=== PATIENT | male | born 1955 | race Caucasian/White ===

== ENCOUNTER → 2017-05-17 | Outpatient (CLI) | payer MEDICAID, OTHER ==
[~2017-05-17] MED LIST: ACYC800T PO; ATEN-102 PO; BENZ0.5T PO; BENZ1TAB PO; CALC1TAB34 PO; CALC500T21 PO; CELE10TA PO; COMPTAB16 PO; DEPA500T3 PO; EMTR1TAB2 PO; HALO1TAB PO; HALO5 PO; KETO2CRE TOPICAL; LISI2.5T3 PO; LISI2.5T55 PO; LITH150C7 PO; RISP2TAB37 PO; SERO300T PO; TEST200I12 IM; TOPR50TA PO; ZOVI800T13 PO
--- NOTE | 2017-05-17 10:41 | RADRPT ---
EXAM DATE/TIME: 05/17/2017 09:42 [place] COMPARISON: No previous studies available for comparison. INDICATIONS : Memory loss. MEDICAL HISTORY : Hypertension. Hepatitis C. HIV. SURGICAL HISTORY : Bone spur removed from ankle. ENCOUNTER: Initial ACUITY: 1 day PAIN SCORE: 0/10 LOCATION: Bilateral neck PEAK SYSTOLIC VELOCITIES (cm/sec): ICA/CCA RATIO: Right: 1.2 Left: 1.4 ICA: Right: 73 Left: 84 CCA: Right: 62 Left: 59 ECA: Right: 45 Left: 45 VERTEBRAL: Right: 54 antegrade Left: 47 antegrade Elevated flow velocities and ICA/CCA ratios have been found to correlate with increased degrees of vessel stenosis, calculated as percentage of diameter relative to a normal segment of distal ICA/CCA FINDINGS: RIGHT CAROTID: There is minimal atherosclerotic plaquing at the bifurcation. No significant stenosis is visualized. The waveforms are within normal limits. LEFT CAROTID: There is minimal atherosclerotic plaquing at the bifurcation. No significant stenosis is visualized. The waveforms are within normal limits. VERTEBRAL ARTERIES: Antegrade flow is seen in both vertebral arteries. MISCELLANEOUS: None. CONCLUSION: Minimal atherosclerotic plaquing is seen bilaterally. Otherwise, unremarkable exam for patient's age. Isidro Otero MD on May 17, 2017 at 10:39 Board Certified Radiologist. This report was verified electronically.
--- NOTE | 2017-05-17 21:24 | MG ---
cc: KASANDRA CALLES MD Lab No: Date: 05/17/17 Age: 61 Sex: M Race: DATE OF [address] Poon. MEDICAL HISTORY HIV, hypertension, hep C. MEDICATIONS 1. Celexa. 2. Risperdal. 3. Seroquel. 4. Depakote. 5. Haloperidol. 6. Toprol XL. 7. Ketoconazole. 8. Testosterone. 9. Lisinopril. 10. Acyclovir. 11. Benztropine. DESCRIPTION The background activity is 9-10 Hz alpha located posteriorly, bilateral and symmetrical. Normal posterior to anterior gradient. During the recording there was drop out of the background with mild slowing. The patient appears drowsy. There is excessive movement artifact. Hyperventilation did not change the background activity. Photic stimulation did not elicit a driving response. There are no electrographic seizures or epileptiform discharges noted during the recording. INTERPRETATION: This is a normal awake and drowsy EEG. Absence of electrographic seizures or epileptiform discharges does not rule-out the diagnosis of epilepsy. Clinical correlation is recommended. Kasandra Calles MD RGO/EO /7:57 PM /9:20 PM MTDD
== END ==
LOC: HEEG 06:31
PROVIDERS: ATTEND Specialist
DX: R93.0 Abnormal findings on diagnostic imaging of skull and head, not elsewhere classified (principal); F20.1 Disorganized schizophrenia; F31.64 Bipolar disorder, current episode mixed, severe, with psychotic features; R41.82 Altered mental status, unspecified
CPT/HCPCS: 93880; 95819

== ENCOUNTER 2017-06-11 16:15 | Inpatient (IN) | payer OTHER, MEDICAID ==
[~2017-06-11] VITALS: Ht 167.6 cm; Wt 64.6 kg
[2017-06-11] VITALS (7 sets, daily range): BP systolic 196–215; BP diastolic 118–130; PULSE 88–102; RESP 16–20; TEMP 98.3–98.5; O2SAT 97–98
[~2017-06-11 16:15] MED LIST changes: -ACYC800T PO; -BENZ0.5T PO; -CALC1TAB34 PO; -CELE10TA PO; -DEPA500T3 PO; -EMTR1TAB2 PO; -HALO1TAB PO; -KETO2CRE TOPICAL; -LISI2.5T3 PO; -RISP2TAB37 PO; -SERO300T PO; -TEST200I12 IM; -TOPR50TA PO
[2017-06-11 16:44] LABS: AUTOMATED NEUTROPHIL # 7.3 TH/MM3 (1.8-7.7); BASOPHIL # 0.1 TH/MM3 (0-0.2); BASOPHIL % 0.9 % (0.0-2.0); EOSINOPHIL # 0.4 TH/MM3 (0-0.4); EOSINOPHIL % 3.8 % (0.0-4.0); HEMATOCRIT 43.4 % (39.0-51.0); HEMOGLOBIN 14.7 GM/DL (13.0-17.0); LYMPH % 14.6 % (9.0-44.0); LYMPHOCYTE # 1.5 TH/MM3 (1.0-4.8); MEAN CELL VOLUME 92.4 FL (80.0-100.0); MEAN CORPUSCULAR HEMOGLOBIN 31.3 PG (27.0-34.0); MEAN CORPUSCULAR HGB CONC 33.9 % (32.0-36.0); MEAN PLATELET VOLUME 7.9 FL (7.0-11.0); MONO % 7.8 % (0.0-8.0); MONOCYTE # 0.8 TH/MM3 (0-0.9); NEUT % 72.9 % (16.0-70.0); PLATELET COUNT 273 TH/MM3 (150-450); RED CELL DISTRIBUTION WIDTH 12.8 % (11.6-17.2); WHITE BLOOD COUNT 10.1 TH/MM3 (4.0-11.0)
[2017-06-11 17:20] LABS: ALBUMIN 3.9 GM/DL (3.4-5.0); AST (GOT) 52 U/L (15-37); BICARBONATE 30.4 MEQ/L (21.0-32.0); BLOOD UREA NITROGEN 18 MG/DL (7-18); CALCIUM 9.2 MG/DL (8.5-10.1); CHLORIDE 104 MEQ/L (98-107); CREATININE 1.15 MG/DL (0.60-1.30); GLOMERULAR FILTRATION RATE 65 ML/MIN (>89); GLUCOSE,RANDOM 105 MG/DL (74-106); SODIUM (NA) 139 MEQ/L (136-145)
[2017-06-11 17:21] LABS: ALT (GPT) 40 U/L (12-78)
[2017-06-11 17:23] LABS: ALKALINE PHOSPHATASE 104 U/L (45-117); TOTAL BILIRUBIN ADULT 0.5 MG/DL (0.2-1.0); TOTAL PROTEIN 7.6 GM/DL (6.4-8.2)
--- NOTE | 2017-06-11 17:49 | PD ---
HPI Chief Complaint: Psychiatric Symptoms Time Seen by Provider: 17:35 Travel History International Travel<30 days: No Contact w/Intl Traveler<30days: No Traveled to known affect area: No History of Present Illness HPI Patient is 61-year-old male presented to the emergency Department under [place] act for psychiatric evaluation. Per the [place] act report patient has absent temporal lobe syndrome, bipolar disorder, schizophrenia. He has been having weight loss and poor hygiene, he's been sleeping in the park and restrooms. He has been combative to his caregiver. Patient denies any suicidal or homicidal ideations, he denies any depression, pain. 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 He states that he is missing part of his brain, he states Dr. Poon told him this fancy terms. He denies any hallucinations. PFSH Past Medical History Bipolar Disorder: Yes Medical other: Yes (HIV) Schizophrenia: Yes Social History Tobacco Use: No Allergies-Medications (Allergen,Severity, Reaction): Coded Allergies: Sulfa (Sulfonamide Antibiotics) (Unverified Allergy, Severe, Hives, ) Reported Meds & Prescriptions Reported Meds & Active Scripts Active Reported Toprol XL (Metoprolol Succinate) 50 Mg Tab 50 Mg PO DAILY Odefsey (Zzaxefqohnvxy-Fvxosciuzjy-Mycqutzvz Alafenam) 200-200-25 Mg Tab 1 Tab PO DAILY Benztropine (Benztropine Mesylate) 0.5 Mg Tab 1 Mg PO BID Acyclovir 800 Mg Tab 800 Mg PO DAILY Lisinopril 2.5 Mg Tab 2.5 Mg PO DAILY Testosterone Cypionate Inj (Testosterone Cypionate) 200 Mg/Ml Inj 200 Mg IM Ketoconazole Topical 2% Cream 1 Applic TOPICAL BID Depakote ER (Divalproex Sodium) 500 Mg Drea 500 Mg PO HS Haloperidol 1 Mg Tab 1 Mg PO DAILY Seroquel (Quetiapine Fumarate) 300 Mg Tab 600 Mg PO HS Celexa (Citalopram Hydrobromide) 10 Mg Tab 5 Mg PO DAILY Risperdal (Risperidone) 2 Mg Tab 2 Mg PO Q12HR Caltrate 600+D Plus Minerals (Calcium Carbonate-Vitamin D W/Minerals) 600-800 Mg -Unit Tab 1 Tab PO BID Review of Systems Except as stated in HPI: all other systems reviewed are Neg Psychiatric: Positive: Disorder of Thought, Mood Disorder, No: Depression, Suicidal Ideations, Substance Abuse Physical Exam Narrative GENERAL: Well-developed, well-nourished, alert male. Resting comfortably in no acute distress. SKIN: Warm and dry. HEAD: Atraumatic. Normocephalic. EYES: Pupils equal and round. No scleral icterus. No injection or drainage. ENT: No nasal bleeding or discharge. Mucous membranes pink and moist. NECK: Trachea midline. No JVD. CARDIOVASCULAR: Regular rate and rhythm. RESPIRATORY: No accessory muscle use. Clear to auscultation. Breath sounds equal bilaterally. GASTROINTESTINAL: Abdomen soft, non-tender, nondistended. Hepatic and splenic margins not palpable. MUSCULOSKELETAL: Extremities without clubbing, cyanosis, or edema. No obvious deformities. NEUROLOGICAL: Awake and alert. No obvious cranial nerve deficits. Motor grossly within normal limits. Five out of 5 muscle strength in the arms and legs. Normal speech. PSYCHIATRIC: Appropriate mood and affect; insight and judgment normal. Data Data Last Documented VS Vital Signs Date Time Temp Pulse Resp B/P (MAP) Pulse Ox O2 Delivery O2 Flow Rate FiO2 06/12/17 10:00 74 18 173/103 (126) Room Air 06/12/17 09:18 98 06/11/17 21:55 98.4 Orders Orders Complete Blood Count With Diff (06/11/17 16:23) Comprehensive Metabolic Panel (06/11/17 16:23) Psych Screen (06/11/17 16:23) Drug Screen, Random Urine (06/11/17 16:23) Atenolol (Tenormin) (06/11/17 18:15) Lisinopril (Prinivil) (06/11/17 18:15) Clonidine (Catapres) (06/11/17 19:00) Valproic Acid (Depakene) (06/11/17 20:40) Amlodipine (Norvasc) (06/11/17 20:45) Clonidine (Catapres) (06/11/17 22:15) Atenolol (Tenormin) (06/12/17 08:00) Lisinopril (Prinivil) (06/12/17 08:00) Diet Regular Basic (06/12/17 Breakfast) Diet Regular Basic (06/12/17 Lunch) Lisinopril (Prinivil) (06/12/17 11:00) Labs Laboratory Tests Test 06/11/17 16:32 06/11/17 17:00 White Blood Count 10.1 TH/MM3 Red Blood Count 4.70 MIL/MM3 Hemoglobin 14.7 GM/DL Hematocrit 43.4 % Mean Corpuscular Volume 92.4 FL Mean Corpuscular Hemoglobin 31.3 PG Mean Corpuscular Hemoglobin Concent 33.9 % Red Cell Distribution Width 12.8 % Platelet Count 273 TH/MM3 Mean Platelet Volume 7.9 FL Neutrophils (%) (Auto) 72.9 % Lymphocytes (%) (Auto) 14.6 % Monocytes (%) (Auto) 7.8 % Eosinophils (%) (Auto) 3.8 % Basophils (%) (Auto) 0.9 % Neutrophils # (Auto) 7.3 TH/MM3 Lymphocytes # (Auto) 1.5 TH/MM3 Monocytes # (Auto) 0.8 TH/MM3 Eosinophils # (Auto) 0.4 TH/MM3 Basophils # (Auto) 0.1 TH/MM3 CBC Comment DIFF FINAL Differential Comment Blood Urea Nitrogen 18 MG/DL Creatinine 1.15 MG/DL Random Glucose 105 MG/DL Total Protein 7.6 GM/DL Albumin 3.9 GM/DL Calcium Level 9.2 MG/DL Alkaline Phosphatase 104 U/L Aspartate Amino Transf (AST/SGOT) 52 U/L Alanine Aminotransferase (ALT/SGPT) 40 U/L Total Bilirubin 0.5 MG/DL Sodium Level 139 MEQ/L Potassium Level 3.7 MEQ/L Chloride Level 104 MEQ/L Carbon Dioxide Level 30.4 MEQ/L Anion Gap 5 MEQ/L Estimat Glomerular Filtration Rate 65 ML/MIN Valproic Acid (Depakene) Level 5 MCG/ML Urine Opiates Screen NEG Urine Barbiturates Screen NEG Urine Amphetamines Screen NEG Urine Benzodiazepines Screen NEG Urine Cocaine Screen NEG Urine Cannabinoids Screen POS MDM Medical Decision Making Medical Screen Exam Complete: Yes Emergency Medical Condition: Yes Medical Record Reviewed: Yes Interpretation(s) Laboratory Tests Test 06/11/17 16:32 06/11/17 17:00 White Blood Count 10.1 TH/MM3 Red Blood Count 4.70 MIL/MM3 Hemoglobin 14.7 GM/DL Hematocrit 43.4 % Mean Corpuscular Volume 92.4 FL Mean Corpuscular Hemoglobin 31.3 PG Mean Corpuscular Hemoglobin Concent 33.9 % Red Cell Distribution Width 12.8 % Platelet Count 273 TH/MM3 Mean Platelet Volume 7.9 FL Neutrophils (%) (Auto) 72.9 % Lymphocytes (%) (Auto) 14.6 % Monocytes (%) (Auto) 7.8 % Eosinophils (%) (Auto) 3.8 % Basophils (%) (Auto) 0.9 % Neutrophils # (Auto) 7.3 TH/MM3 Lymphocytes # (Auto) 1.5 TH/MM3 Monocytes # (Auto) 0.8 TH/MM3 Eosinophils # (Auto) 0.4 TH/MM3 Basophils # (Auto) 0.1 TH/MM3 CBC Comment DIFF FINAL Differential Comment Blood Urea Nitrogen 18 MG/DL Creatinine 1.15 MG/DL Random Glucose 105 MG/DL Total Protein 7.6 GM/DL Albumin 3.9 GM/DL Calcium Level 9.2 MG/DL Alkaline Phosphatase 104 U/L Aspartate Amino Transf (AST/SGOT) 52 U/L Alanine Aminotransferase (ALT/SGPT) 40 U/L Total Bilirubin 0.5 MG/DL Sodium Level 139 MEQ/L Potassium Level 3.7 MEQ/L Chloride Level 104 MEQ/L Carbon Dioxide Level 30.4 MEQ/L Anion Gap 5 MEQ/L Estimat Glomerular Filtration Rate 65 ML/MIN Vital Signs Date Time Temp Pulse Resp B/P (MAP) Pulse Ox O2 Delivery O2 Flow Rate FiO2 06/11/17 16:27 98.5 98 16 199/125 (149 98 Differential Diagnosis Mood disorder versus substance abuse versus noncompliance versus schizophrenia versus other Narrative Course Patient is a 61-year-old male under [place] act due to poor self-care, combative behavior. Mental health screening discussed with the patient. Psychiatric screen ordered. He denies any psychiatric history other than missing part of his brain. Patient's blood pressure is elevated, he has a history of hypertension and has been noncompliant with his medications. Atenolol and lisinopril ordered per home dose schedule. Patient's blood pressure remained elevated after normal home medications were administered. Clonidine 0.1 mg was administered orally, blood pressure trended down however only slightly. Amlodipine 10 mg by mouth 1 ordered. Patient is resting comfortably, he has no complaints of pain. Will reassess. After administration of amlodipine patient's blood pressure trended down slightly but continued again to be significantly elevated, an additional dose of clonidine was ordered. Patient has a history of hypertension, he is off of his medications for an unknown period of time. It may take time for patient's blood pressure to normalize. Discussed with my attending physician. Patient is medically cleared at this time. Will order home dose of atenolol lisinopril for the morning. Diagnosis Primary Impression: Medical clearance for psychiatric admission Additional Impression: Hypertension Qualified Codes: I10 - Essential (primary) hypertension Condition: Stable Delilah Hidalgo [facility] Jun 11, 2017 17:49
[2017-06-11] MEDS ORDERED: LISINOPRIL 5 MG TAB PO ONE (18:15)
[2017-06-11] MEDS ORDERED: ATENOLOL 50 MG TAB PO ONE (18:15)
[2017-06-11] MEDS ORDERED: cloNIDine HCL 0.1 MG TAB PO ONE ×2 (19:00→22:15)
[2017-06-11] MEDS ORDERED: KETO2CRE TOPICAL (19:58)
[2017-06-11] MEDS ORDERED: TEST200I12 IM (19:58)
[2017-06-11] MEDS ORDERED: CELE10TA PO (19:58)
[2017-06-11] MEDS ORDERED: HALO1TAB PO (19:58)
[2017-06-11] MEDS ORDERED: RISP2TAB37 PO (19:58)
[2017-06-11] MEDS ORDERED: SERO300T PO (19:58)
[2017-06-11] MEDS ORDERED: DEPA500T3 PO (19:58)
[2017-06-11] MEDS ORDERED: CALC1TAB34 PO (19:58)
[2017-06-11] MEDS ORDERED: TOPR50TA PO (20:03)
[2017-06-11] MEDS ORDERED: LISI2.5T3 PO (20:03)
[2017-06-11] MEDS ORDERED: ACYC800T PO (20:03)
[2017-06-11] MEDS ORDERED: BENZ0.5T PO (20:03)
[2017-06-11] MEDS ORDERED: EMTR1TAB2 PO (20:03)
[2017-06-12 06:17] VITALS: BP 178/108; PULSE 88; RESP 18
[2017-06-12] MEDS ORDERED: ATENOLOL 50 MG TAB PO ONE (08:00)
[2017-06-12] MEDS ORDERED: LISINOPRIL 5 MG TAB PO ONE ×2 (08:00→11:00)
[2017-06-12 09:18] VITALS: BP 175/103; PULSE 79; RESP 18; O2SAT 98
[2017-06-12 10:00] VITALS: BP 173/103; PULSE 74; RESP 18
[2017-06-12] MEDS ORDERED: MAGNESIUM HYDROXIDE SUSP 30 ML CUP PO PRN (15:45)
[2017-06-12] MEDS ORDERED: LORazepam 2 MG/ML VIAL IM PRN (15:45)
[2017-06-12] MEDS ORDERED: ALUMINUM/MAGNESIUM/SIMETH 30 ML CUP PO PRN (15:45)
[2017-06-12] MEDS ORDERED: cloNIDine HCL 0.1 MG TAB PO ONE (15:45)
[2017-06-12 15:46] VITALS: BP 168/103; PULSE 75; RESP 18; TEMP 99.1; O2SAT 97
[2017-06-12] MEDS: METOPROLOL SUCCINATE 50 MG EXTENDED RELEASE TAB PO SCH (16:00)
[2017-06-12] MEDS ORDERED: EMTRICITABINE RILPIVIRINE TENOFOVIR ALAFENAM PO SCH (16:00)
[2017-06-12] MEDS: ACYCLOVIR 800 MG TAB PO SCH (16:00)
[2017-06-12] MEDS ORDERED: NON-FORMULARY DRUG (Lisinopril 2.5 MG) PO SCH (16:00)
--- NOTE | 2017-06-12 16:05 | HHI.HP ---
Provisional Diagnosis Admission Date Jun 12, 2017 at 15:46 [place] I. Brief psychotic disorder Certification of Person's Competence To Provide Express and Informed Consent I have personally examined Nixon Arriaza , a person being served at [facility] on, Jun 12, 2017 15:51. Express and informed consent means consent voluntarily given in writing, by a competent person, after sufficient explanation and disclosure of the subject matter involved to enable the person to make a knowing and willful decision without any element of force, fraud, deceit, duress, or other form of constraint or coercion. This person is 18 years of age or older, is not now known to be incompetent to consent to treatment with a guardian advocate, and does not have a health care surrogate or proxy currently making medical treatment decisions. I have found this person to be one of the following: [] Competent to provide express and informed consent, as defined above, for voluntary admission to this facility and is competent to provide express and informed consent for treatment. He/she has the consistent capacity to make well reasoned, willful, and knowing decisions concerning his or her medical or mental health treatment. The person fully and consistently understands the purpose of the admission for examination/placement and is fully capable of personally exercising all rights assured [place] [X] Incompetent to provide express and informed consent to voluntary admission, and this is incompetent to provide express and informed consent to treatment. The person must be transferred to involuntary status and a petition for a guardian advocate filed with the Circuit Court. [] Refusing to provide express and informed consent to voluntary admission but is competent to provide express and informed consent for treatment. The person must be discharged or transferred to involuntary status. Form shall be completed within 24 hours of a person's arrival at the receiving facility and filed in the clinical record of each person: 1. Admitted on a voluntary basis 2. Permitted to provide express and informed consent to his/her own treatment 3. Allowed to transfer from involuntary to voluntary status 4. Prior to permitting a person to consent to his or her own treatment after having been previously found incompetent to consent to treatment. History of Present Illness Capacity: Lacks Capacity HPI 61-year-old male Raffaele acted by his primary care physician yesterday with reports of combative/violent behavior at home with his caregiver. Caregiver is his brother, Sajan. Sajan is unable to care for the patient and the patient has reportedly been staying in bathrooms and homeless, not eating and losing weight. Patient is apparently HIV positive and has "absent temporal lobe syndrome". He is grossly psychotic and unable to provide a cogent history. There are his story diagnoses of bipolar disorder and schizophrenia as well. According to the patient's CT scan, his temporal lobe is gone and this makes his personality and behavior difficult to control. The patient tells his caregiver and this physician that his primary care physician, Dr. Poon is attempting to get him sicker or keep him sick to make money off him. The patient has not been eating lunch or dinner and does not stay in the home. It has been 8 days since the patient left the home and the patient claims his brother kicked him out. The patient has not been taking his medications for HIV. Upon interview, the patient immediately makes nonsensical and psychotic remarks such as "I was born in [facility] and a pink missed". He feels this physician's sole is made of chocolate. He is unable to provide cogent information. Review of Systems Except as stated in HPI: all other systems reviewed are Neg Past Psych History Psychological trauma history Denied Violence risk - others (6 mos) Moderate to high. Violence risk - self (6 mos) Moderate to high. Patient certainly not caring for self. Substance Abuse History Drugs/Alcohol past 12 months Denied. Toxicology screen is positive for cannabinoids. Past Family Social History Coded Allergies: Sulfa (Sulfonamide Antibiotics) (Unverified Allergy, Severe, Hives, ) Reported Medications Metoprolol Succinate ER 24 HR (Toprol XL) 50 Mg Tab, 50 MG PO DAILY, #30 TAB 0 Refills 06/11/17 Xvkdtmwqvpscg-Lpdwrmxuqzv-Mooejfklo Alafenam (Odefsey) 200-200-25 Mg Tab, 1 TAB PO DAILY for Mgmt Viral Infection, #30 TAB 0 Refills 06/11/17 Benztropine (Benztropine) 0.5 Mg Tab, 1 MG PO BID, #60 TAB 0 Refills 06/11/17 Acyclovir (Acyclovir) 800 Mg Tab, 800 MG PO DAILY for Mgmt Viral Infection, TAB 0 Refills 06/11/17 Lisinopril (Lisinopril) 2.5 Mg Tab, 2.5 MG PO DAILY, #30 TAB 0 Refills 06/11/17 Testosterone Cypionate Inj (Testosterone Cypionate Inj) 200 Mg/Ml Inj, 200 MG IM for Hormone Replacement, #1 VIAL 0 Refills 06/11/17 Ketoconazole Topical (Ketoconazole Topical) 2% Cream, 1 APPLIC TOPICAL BID for Fungal Infection, #15 GM 0 Refills 06/11/17 Divalproex ER (Depakote ER) 500 Mg Drea, 500 MG PO HS for Control Seizures, # 30 TAB 0 Refills 06/11/17 Haloperidol (Haloperidol) 1 Mg Tab, 1 MG PO DAILY, TAB 0 Refills 06/11/17 Quetiapine (Seroquel) 300 Mg Tab, 600 MG PO HS, #30 TAB 0 Refills 06/11/17 Citalopram (Celexa) 10 Mg Tab, 5 MG PO DAILY for Control Depression, #30 TAB 0 Refills 06/11/17 Risperidone (Risperdal) 2 Mg Tab, 2 MG PO Q12HR, #60 TAB 0 Refills 06/11/17 Calcium Carbonate-Vitamin D W/Minerals (Caltrate 600+D Plus Minerals) 600-800 Mg -Unit Tab, 1 TAB PO BID for Nutritional Supplement, TAB 0 Refills 06/11/17 Discontinued Reported Medications Lisinopril 2.5 mg (Lisinopril 2.5 mg) 2.5 Mg Tab, 1 TAB PO DAILY, TAB 01/06/16 Akztaixcfockt-Mrwvdkokwiu-Igll (Complera) Tab, 1 TAB PO DAILY, TAB 01/06/16 Calcium Carbonate-Vitamin D (Calcium 500+D) 500 + Tab, 600 + PO BID, TAB 01/06/16 Benztropine Mesylate (Benztropine Mesylate) 1 Mg Tab, 1 MG PO Q12H, TAB 01/06/16 Atenolol (Atenolol) 50 Mg Tab, 50 MG PO DAILY, TAB 01/06/16 Acyclovir (Zovirax) 800 Mg Tab, 800 MG PO DAILY, 0 Refills 10/19/08 Creola Carbonate (Creola Carbonate) 150 Mg Cap, 300 MG PO TID, 0 Refills 10/19/08 Haloperidol (Haldol) 5 Mg Tab, 5 MG PO DAILY, 0 Refills 10/19/08 Current Medications Medications (Trade) Dose Ordered Sig/Zina Route Start Time Stop Time Status Last Admin (Ativan) 1 mg Q6H PRN PO 06/12/17 15:45 UNV (Ativan Inj) 1 mg Q6H PRN IM 06/12/17 15:45 UNV (Tylenol) 650 mg Q4H PRN PO 06/12/17 15:45 UNV (Milk Of Magnesia Liq) 30 ml DAILY PRN PO 06/12/17 15:45 UNV (Mag-Al Plus Susp Liq) 30 ml Q6H PRN PO 06/12/17 15:45 UNV Family Psych History Unknown. Patient poor historian. Social History Living with his brother until approximately 8 days ago. Now staying in bathrooms and other inappropriate places. Grossly psychotic and unreliable historian regarding his compliance with medicines. Unable to work due to mental disability. Patient's Strengths (min. 2) Supportive brother and has access to healthcare. Physical Exam GENERAL: SKIN: Warm and dry. HEAD: Normocephalic. EYES: No scleral icterus. No injection or drainage. NECK: Supple, trachea midline. No JVD or lymphadenopathy. CARDIOVASCULAR: Regular rate and rhythm without murmurs, gallops, or rubs. RESPIRATORY: Breath sounds equal bilaterally. No accessory muscle use. GASTROINTESTINAL: Abdomen soft, non-tender, nondistended. MUSCULOSKELETAL: No cyanosis, or edema. BACK: Nontender without obvious deformity. No CVA tenderness. Vital Signs Vital Signs Date Time Temp Pulse Resp B/P (MAP) Pulse Ox O2 Delivery O2 Flow Rate FiO2 06/12/17 15:46 99.1 75 18 168/103 (124) 97 Room Air Lab Results Test 06/11/17 16:32 06/11/17 17:00 White Blood Count 10.1 TH/MM3 Red Blood Count 4.70 MIL/MM3 Hemoglobin 14.7 GM/DL Hematocrit 43.4 % Mean Corpuscular Volume 92.4 FL Mean Corpuscular Hemoglobin 31.3 PG Mean Corpuscular Hemoglobin Concent 33.9 % Red Cell Distribution Width 12.8 % Platelet Count 273 TH/MM3 Mean Platelet Volume 7.9 FL Neutrophils (%) (Auto) 72.9 % Lymphocytes (%) (Auto) 14.6 % Monocytes (%) (Auto) 7.8 % Eosinophils (%) (Auto) 3.8 % Basophils (%) (Auto) 0.9 % Neutrophils # (Auto) 7.3 TH/MM3 Lymphocytes # (Auto) 1.5 TH/MM3 Monocytes # (Auto) 0.8 TH/MM3 Eosinophils # (Auto) 0.4 TH/MM3 Basophils # (Auto) 0.1 TH/MM3 CBC Comment DIFF FINAL Differential Comment Blood Urea Nitrogen 18 MG/DL Creatinine 1.15 MG/DL Random Glucose 105 MG/DL Total Protein 7.6 GM/DL Albumin 3.9 GM/DL Calcium Level 9.2 MG/DL Alkaline Phosphatase 104 U/L Aspartate Amino Transf (AST/SGOT) 52 U/L Alanine Aminotransferase (ALT/SGPT) 40 U/L Total Bilirubin 0.5 MG/DL Sodium Level 139 MEQ/L Potassium Level 3.7 MEQ/L Chloride Level 104 MEQ/L Carbon Dioxide Level 30.4 MEQ/L Anion Gap 5 MEQ/L Estimat Glomerular Filtration Rate 65 ML/MIN Valproic Acid (Depakene) Level 5 MCG/ML Urine Opiates Screen NEG Urine Barbiturates Screen NEG Urine Amphetamines Screen NEG Urine Benzodiazepines Screen NEG Urine Cocaine Screen NEG Urine Cannabinoids Screen POS Mental Status Examination Appearance: Disheveled Consciousness: Alert Orientation: Person, Place Motor Activity: Normal gait Speech: Rapid Language: Neologism, Perseveration Fund of Knowledge: Adequate, Inadequate Attention and Concentration: Inadequate Memory: Impaired Mood: Other Affect: Labile Thought Process & Associations: Loose associations, Tangential Thought Content: Bizarre thinking, Delusional Hallucination Type: None Delusion Type: Bizarre Suicidal Ideation: No Suicidal Plan: No Suicidal Intention: No Homicidal Ideation: No Homicidal Plan: No Homicidal Intention: No Insight: Poor Judgment: Poor Assessment & Plan Problem List: (1) Brief psychotic disorder ICD Codes: F23 - Brief psychotic disorder Assessment & Plan Estimated LOS: days. 61-year-old male obviously grossly psychotic, obviously unable to care for himself, HIV positive, threatening towards his brother, not taking medications as prescribed, paranoid regarding his doctor, with multiple delusional comments and inappropriate thought process. Patient therefore being admitted for further evaluation and treatment. This physician has ordered a CBC and comprehensive metabolic panel to determine if any infectious process or metabolic process is possibly causing her contributing to the patient's psychosis. Additionally, this physician has ordered a hospitalist consult to assist with the patient's HIV medications, neurological condition (absent temporal lobe syndrome), high blood pressure, etc. as these conditions can also cause or contribute to the patient's confusion and psychosis. Also ordered or thyroid stimulating hormone, vitamin B -12 level and vitamin D level to determine if any deficiency in these areas is causing or contributing to the patient's psychosis. An EKG is being ordered as well to examine the patient's cardiac conduction system prior to instituting a myriad of psychotropic medicines which have been previously ordered and may cause a cardiac conduction problem. This physician spoke to the patient's nurse , Bon regarding his recent behavior. Case management will also be involved to assist with information gathering and disposition planning. Lázaro Gates MD Jun 12, 2017 16:05
[2017-06-12] MEDS ORDERED: PILL SPLITTER OTHER PRN (16:30)
--- NOTE | 2017-06-12 18:26 | PD.CONS ---
[facility] Request[facility] By Dr. Gates, psychiatry team Reason for Consult Assist with medical management, HTN uncontrolled, HIV, Primary Care Physician Unknown Diagnoses: History of Present Illness Patient is a 61-year-old male with primary medical history of HTN, HIV, bipolar , schizoaffective disorder who came into the hospital under [place] for psychiatric evaluation. Per review of records [place] report patient has absent temporal lobe syndrome, bipolar disorder, schizophrenia who has been having weight loss and poor hygiene sleeping in the park and restrooms. Patient has been combative to his caregiver. He is now admitted to inpatient psychiatry unit for further evaluation. Consulted for medical management. Patient seen and examined today. As per nursing, patient has been having uncontrolled high blood pressure. Patient has not been taking his HIV and BP medications. Patient states that he is doing okay. 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 States that he's been doing well and has been eating okay. Mentions "I love to eat, I love food." Denies weight loss. Denies pain and discomfort. Denies SOB/ dyspnea. Denies chest pain, palpitations, headaches, dizziness. Denies fevers, chills, n/v/d. Denies dysuria. Review of Systems Except as stated in HPI: all other systems reviewed are Neg Past Family Social History Allergies: Coded Allergies: Sulfa (Sulfonamide Antibiotics) (Unverified Allergy, Severe, Hives, ) Past Medical History HTN Hep C HIV Bipolar disorder Schizoaffective disorder Schizophrenia Absent temporal lobe syndrome Past Surgical History Right ankle surgery secondary to bone spurs Reported Medications Reported Meds & Active Scripts Active Reported Toprol XL (Metoprolol Succinate) 50 Mg Tab 50 Mg PO DAILY Odefsey (Vycchbnbzpbev-Jnrcdlrcetx-Xmcnaccxs Alafenam) 200-200-25 Mg Tab 1 Tab PO DAILY Benztropine (Benztropine Mesylate) 0.5 Mg Tab 1 Mg PO BID Acyclovir 800 Mg Tab 800 Mg PO DAILY Lisinopril 2.5 Mg Tab 2.5 Mg PO DAILY Testosterone Cypionate Inj (Testosterone Cypionate) 200 Mg/Ml Inj 200 Mg IM Ketoconazole Topical 2% Cream 1 Applic TOPICAL BID Depakote ER (Divalproex Sodium) 500 Mg Drea 500 Mg PO HS Haloperidol 1 Mg Tab 1 Mg PO DAILY Seroquel (Quetiapine Fumarate) 300 Mg Tab 600 Mg PO HS Celexa (Citalopram Hydrobromide) 10 Mg Tab 5 Mg PO DAILY Risperdal (Risperidone) 2 Mg Tab 2 Mg PO Q12HR Caltrate 600+D Plus Minerals (Calcium Carbonate-Vitamin D W/Minerals) 600-800 Mg -Unit Tab 1 Tab PO BID Active Ordered Medications Current Medications Medications (Trade) Dose Ordered Sig/Zina Route Start Time Stop Time Status Last Admin (Ativan) 1 mg Q6H PRN PO 06/12/17 15:45 (Ativan Inj) 1 mg Q6H PRN IM 06/12/17 15:45 (Tylenol) 650 mg Q4H PRN PO 06/12/17 15:45 (Milk Of Magnesia Liq) 30 ml DAILY PRN PO 06/12/17 15:45 (Mag-Al Plus Susp Liq) 30 ml Q6H PRN PO 06/12/17 15:45 (Zovirax) 800 mg DAILY PO 06/12/17 16:00 (Nizoral 2% Cream) 1 applic BID TOPICAL 06/12/17 21:00 (Toprol Xl) 50 mg DAILY PO 06/12/17 16:00 (SEROquel) 600 mg HS PO 06/12/17 21:00 (Prinivil) 2.5 mg DAILY PO 06/13/17 09:00 (Pill Splitter) 1 ea UNSCH PRN OTHER 06/12/17 16:30 Patient Own Medication PT OWN MED: ODEFSEY... DAILY PO 06/13/17 09:00 Future Hold Patient Own Medication PT OWN MED: CALCIUM CARBONA... BID PO 06/12/17 21:00 Future Hold Family History Denies any family medical history high blood pressure or heart disease. Social History Denies alcohol use Denies tobacco use Almost everyday use of marijuana Physical Exam Vital Signs Vital Signs Date Time Temp Pulse Resp B/P (MAP) Pulse Ox O2 Delivery O2 Flow Rate FiO2 06/12/17 15:46 99.1 75 18 168/103 (124) 97 Room Air 06/12/17 10:00 74 18 173/103 (126) Room Air 06/12/17 09:18 79 18 175/103 (127) 98 Room Air 06/12/17 06:17 88 18 178/108 (131) Room Air 06/11/17 22:54 93 18 207/124 (151) 06/11/17 21:55 98.4 88 18 196/119 (144) 97 Room Air 06/11/17 20:41 102 20 200/118 (145) 06/11/17 19:38 98.5 94 18 215/120 (151) 97 Room Air 06/11/17 18:55 98.3 97 18 202/130 (154) 98 Room Air Physical Exam GENERAL: This is a thinly appearing, well-developed patient, in no apparent distress. SKIN: Warm and dry. HEAD: Normocephalic. No temporal or scalp tenderness. EYES: Pupils equal round and reactive. Extraocular motions intact. No scleral icterus. No injection or drainage. ENT: Nose without bleeding. Throat without erythema. Uvula midline. Airway patent. NECK: Trachea midline. No JVD or lymphadenopathy. Supple, nontender, no meningeal signs. CARDIOVASCULAR: Regular rate and rhythm without murmurs, gallops, or rubs. RESPIRATORY: Clear to auscultation. Breath sounds equal bilaterally. No wheezes , rales, or rhonchi. GASTROINTESTINAL: Abdomen soft, non-tender, nondistended. Bowel sounds active 4. No guarding. MUSCULOSKELETAL: Extremities without clubbing, cyanosis, or edema. NEUROLOGICAL: Awake and alert.Oriented to person, place. Motor and sensory grossly within normal limits. Normal speech. Result Diagram: 06/11/17 1632 06/11/17 1632 Assessment and Plan Problem List: (1) Hypertension ICD Code: I10 - Essential (primary) hypertension Status: Acute (2) HIV (human immunodeficiency virus infection) ICD Code: Z21 - Asymptomatic human immunodeficiency virus [HIV] infection status Status: Acute Assessment and Plan Patient is a 61-year-old male with primary medical history of HTN, HIV, bipolar , schizoaffective disorder who came into the hospital under [place] for psychiatric evaluation. Per review of records [place] report patient has absent temporal lobe syndrome, bipolar disorder, schizophrenia who has been having weight loss and poor hygiene sleeping in the park and restrooms. Patient has been combative to his caregiver. He is now admitted to inpatient psychiatry unit for further evaluation. Consulted for medical management. BiPolar disorder, schizophrenia - Managed by psychiatry team HTN, uncontrolled - Noncompliance behavior. As per review of records has not been taking any of his medications, approximately about a decent go left his brother's home and lives in restrooms and [place]. - Restart home medications metoprolol 50 mg daily, lisinopril 2.5 mg daily - Clonidine when necessary - Monitor BP trend. Will not drastically drop his blood pressure. Noncompliance, HIV Hep C, history - Continue acyclovir 800 mg daily, Odefsey 1 tab daily - Counseled for compliance U tox positive for marijuana use. Labs have been reviewed, no significant abnormalities in lab results. DVT prop ambulatory Code Status Full code Discussed Condition With Patient, nursing, Dr. Solano Problem Qualifiers (1) Hypertension: Qualified Codes: I10 - Essential (primary) hypertension Juanita Farley Jun 12, 2017 18:26
[2017-06-12 19:33] VITALS: BP 176/103; PULSE 78; RESP 17; TEMP 98.5; O2SAT 98
[2017-06-12 21:00] VITALS: BP 175/99; PULSE 72; RESP 18; TEMP 98; O2SAT 97
[2017-06-12] MEDS ORDERED: [UNRECOGNIZED DRUG - OTHER] PO SCH (21:00)
[2017-06-12] MEDS ORDERED: MINERALS PO SCH (21:00)
[2017-06-12] MEDS: KETOCONAZOLE 2% CREAM 15 GM TOPICAL SCH (21:00)
[2017-06-12] MEDS ORDERED: VIT D PO SCH (21:00)
[2017-06-12] MEDS: QUEtiapine FUMARATE 300 MG TAB PO SCH (23:28)
[2017-06-13 01:50] VITALS: BP 119/71; PULSE 73
[2017-06-13 05:00] VITALS: BP 129/61; PULSE 72; RESP 16; TEMP 97.1; O2SAT 96
[2017-06-13 07:33] LABS: AUTOMATED NEUTROPHIL # 4.8 TH/MM3 (1.8-7.7); BASOPHIL % 0.6 % (0.0-2.0); EOSINOPHIL # 0.5 TH/MM3 (0-0.4); EOSINOPHIL % 6.8 % (0.0-4.0); HEMATOCRIT 44.9 % (39.0-51.0); LYMPH % 18.8 % (9.0-44.0); LYMPHOCYTE # 1.4 TH/MM3 (1.0-4.8); MEAN CELL VOLUME 92.4 FL (80.0-100.0); MEAN CORPUSCULAR HEMOGLOBIN 30.9 PG (27.0-34.0); MEAN CORPUSCULAR HGB CONC 33.5 % (32.0-36.0); MEAN PLATELET VOLUME 8.4 FL (7.0-11.0); MONOCYTE # 0.7 TH/MM3 (0-0.9); NEUT % 64.8 % (16.0-70.0); PLATELET COUNT 246 TH/MM3 (150-450); RED BLOOD COUNT 4.86 MIL/MM3 (4.50-5.90); RED CELL DISTRIBUTION WIDTH 12.9 % (11.6-17.2); WHITE BLOOD COUNT 7.4 TH/MM3 (4.0-11.0)
[2017-06-13 08:11] LABS: ALBUMIN 3.2 GM/DL (3.4-5.0); ALT (GPT) 25 U/L (12-78); AST (GOT) 25 U/L (15-37); BICARBONATE 26.2 MEQ/L (21.0-32.0); BLOOD UREA NITROGEN 17 MG/DL (7-18); CALCIUM 8.8 MG/DL (8.5-10.1); CHLORIDE 108 MEQ/L (98-107); CHOLESTEROL 84 MG/DL (120-200); CREATININE 0.89 MG/DL (0.60-1.30); GLOMERULAR FILTRATION RATE 87 ML/MIN (>89); GLUCOSE,RANDOM 95 MG/DL (74-106); SODIUM (NA) 141 MEQ/L (136-145); TRIGLYCERIDES 72 MG/DL (42-150)
[2017-06-13 08:33] LABS: ALKALINE PHOSPHATASE 78 U/L (45-117); CHOLESTEROL/ HDL RATIO 2.24 RATIO; HDL CHOLESTEROL 37.5 MG/DL (40.0-60.0); LDL CHOLESTEROL 32 MG/DL (0-99); TOTAL BILIRUBIN ADULT 0.5 MG/DL (0.2-1.0); TOTAL PROTEIN 6.6 GM/DL (6.4-8.2)
--- NOTE | 2017-06-13 08:37 | HHI.PR ---
Subjective Remarks Patient is a 61-year-old male with primary medical history of HTN, HIV, bipolar , schizoaffective disorder who came into the hospital under [place] for psychiatric evaluation. Per review of records [place] report patient has absent temporal lobe syndrome, bipolar disorder, schizophrenia who has been having weight loss and poor hygiene sleeping in the park and restrooms. Patient has been combative to his caregiver. He is now admitted to inpatient psychiatry unit for further evaluation. Consulted for medical management. Patient seen and examined today. As per nursing, patient has been having uncontrolled high blood pressure. Patient has not been taking his HIV and BP medications. Patient states that he is doing okay. 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 States that he's been doing well and has been eating okay. Mentions "I love to eat, I love food." Denies weight loss. Denies pain and discomfort. Denies SOB/ dyspnea. Denies chest pain, palpitations, headaches, dizziness. Denies fevers, chills, n/v/d. Denies dysuria. 06-13 NO CURRENT COMPLAINTS DW RN AND PT ORIENTED TO PERSON, PLACE, TIME, SITUATION Objective Vitals Vital Signs Date Time Temp Pulse Resp B/P (MAP) Pulse Ox O2 Delivery O2 Flow Rate FiO2 06/13/17 05:00 97.1 72 16 129/61 (83) 96 06/13/17 01:50 73 119/71 (87) 06/12/17 21:00 98.0 72 18 175/99 (124) 97 06/12/17 19:50 06/12/17 19:33 98.5 78 17 176/103 (127) 98 Room Air 06/12/17 15:46 99.1 75 18 168/103 (124) 97 Room Air 06/12/17 10:00 74 18 173/103 (126) Room Air 06/12/17 09:18 79 18 175/103 (127) 98 Room Air I/O 06/12/17 06/12/17 06/12/17 06/13/17 06/13/17 06/13/17 07:00 15:00 23:00 07:00 15:00 23:00 Intake Total 960 ml Output Total 325 ml Balance 635 ml Intake Oral 960 ml Output Urine Total 325 ml # Voids 1 # Bowel Movements 2 Result Diagram: 06/13/17 0655 06/13/17 0655 Other Results Laboratory Tests Test 06/11/17 16:32 06/11/17 17:00 06/13/17 06:55 White Blood Count 10.1 TH/MM3 7.4 TH/MM3 Red Blood Count 4.70 MIL/MM3 4.86 MIL/MM3 Hemoglobin 14.7 GM/DL 15.0 GM/DL Hematocrit 43.4 % 44.9 % Mean Corpuscular Volume 92.4 FL 92.4 FL Mean Corpuscular Hemoglobin 31.3 PG 30.9 PG Mean Corpuscular Hemoglobin Concent 33.9 % 33.5 % Red Cell Distribution Width 12.8 % 12.9 % Platelet Count 273 TH/MM3 246 TH/MM3 Mean Platelet Volume 7.9 FL 8.4 FL Neutrophils (%) (Auto) 72.9 % 64.8 % Lymphocytes (%) (Auto) 14.6 % 18.8 % Monocytes (%) (Auto) 7.8 % 9.0 % Eosinophils (%) (Auto) 3.8 % 6.8 % Basophils (%) (Auto) 0.9 % 0.6 % Neutrophils # (Auto) 7.3 TH/MM3 4.8 TH/MM3 Lymphocytes # (Auto) 1.5 TH/MM3 1.4 TH/MM3 Monocytes # (Auto) 0.8 TH/MM3 0.7 TH/MM3 Eosinophils # (Auto) 0.4 TH/MM3 0.5 TH/MM3 Basophils # (Auto) 0.1 TH/MM3 0.0 TH/MM3 CBC Comment DIFF FINAL DIFF FINAL Differential Comment Blood Urea Nitrogen 18 MG/DL 17 MG/DL Creatinine 1.15 MG/DL 0.89 MG/DL Random Glucose 105 MG/DL 95 MG/DL Total Protein 7.6 GM/DL 6.6 GM/DL Albumin 3.9 GM/DL 3.2 GM/DL Calcium Level 9.2 MG/DL 8.8 MG/DL Alkaline Phosphatase 104 U/L 78 U/L Aspartate Amino Transf (AST/SGOT) 52 U/L 25 U/L Alanine Aminotransferase (ALT/SGPT) 40 U/L 25 U/L Total Bilirubin 0.5 MG/DL 0.5 MG/DL Sodium Level 139 MEQ/L 141 MEQ/L Potassium Level 3.7 MEQ/L 3.7 MEQ/L Chloride Level 104 MEQ/L 108 MEQ/L Carbon Dioxide Level 30.4 MEQ/L 26.2 MEQ/L Anion Gap 5 MEQ/L 7 MEQ/L Estimat Glomerular Filtration Rate 65 ML/MIN 87 ML/MIN Valproic Acid (Depakene) Level 5 MCG/ML Urine Opiates Screen NEG Urine Barbiturates Screen NEG Urine Amphetamines Screen NEG Urine Benzodiazepines Screen NEG Urine Cocaine Screen NEG Urine Cannabinoids Screen POS Triglycerides Level 72 MG/DL Cholesterol Level 84 MG/DL LDL Cholesterol 32 MG/DL HDL Cholesterol 37.5 MG/DL Cholesterol/HDL Ratio 2.24 RATIO Vitamin B12 Level 790 PG/ML Thyroid Stimulating Hormone 3rd Gen 1.080 uIU/ML Objective Remarks GENERAL: Awake alert and oriented answering talkative cooperative SKIN: Warm and dry. HEAD: Atraumatic. Normocephalic. EYES: Pupils equal and round. No scleral icterus. No injection or drainage. Extraocular muscles intact ENT: No nasal bleeding or discharge. Mucous membranes pink and moist. Tongue is midline NECK: Trachea midline. No JVD. Supple CARDIOVASCULAR: Regular rate and rhythm. S1-S2 no S3 or S4 RESPIRATORY: No accessory muscle use. Clear to auscultation. Breath sounds equal bilaterally. GASTROINTESTINAL: Abdomen soft, non-tender, nondistended. Hepatic and splenic margins not palpable. MUSCULOSKELETAL: Extremities without clubbing, cyanosis, or edema. No obvious deformities. NEUROLOGICAL: Awake and alert. No obvious cranial nerve deficits. Motor grossly within normal limits. Five out of 5 muscle strength in the arms and legs. Normal speech. PSYCHIATRIC: Appropriate mood and affect; insight and judgment ABnormal. Procedures NONE Medications and IVs Current Medications Atenolol (Tenormin) 50 mg ONCE ONCE PO Last administered on 06/11/17 18:16; Start 06/11/17 at 18:15; Stop 06/11/17 at 18:16; Status DC Lisinopril (Prinivil) 2.5 mg ONCE ONCE PO Last administered on 06/11/17 18: 16; Start 06/11/17 at 18:15; Stop 06/11/17 at 18:16; Status DC Clonidine (Catapres) 0.1 mg ONCE ONCE PO Last administered on 06/11/17 19:00 ; Start 06/11/17 at 19:00; Stop 06/11/17 at 19:03; Status DC Amlodipine Besylate (Norvasc) 10 mg ONCE ONCE PO Last administered on 20:45; Start 06/11/17 at 20:45; Stop 06/11/17 at 20:46; Status DC Clonidine (Catapres) 0.1 mg ONCE ONCE PO Last administered on 06/11/17 22:15 ; Start 06/11/17 at 22:15; Stop 06/11/17 at 22:16; Status DC Atenolol (Tenormin) 50 mg ONCE ONCE PO Last administered on 06/12/17 08:11; Start 06/12/17 at 08:00; Stop 06/12/17 at 08:01; Status DC Lisinopril (Prinivil) 5 mg ONCE ONCE PO Last administered on 06/12/17 08:10 ; Start 06/12/17 at 08:00; Stop 06/12/17 at 08:01; Status DC Lisinopril (Prinivil) 5 mg ONCE ONCE PO Last administered on 06/12/17 11:04 ; Start 06/12/17 at 11:00; Stop 06/12/17 at 11:02; Status DC Clonidine (Catapres) 0.1 mg ONCE ONCE PO Last administered on 06/12/17 16:05 ; Start 06/12/17 at 15:45; Stop 06/12/17 at 15:47; Status DC Lorazepam (Ativan) 1 mg Q6H PRN PO MODERATE TO SEVERE ANXIETY; Start 06/12/17 at 15:45 Lorazepam (Ativan Inj) 1 mg Q6H PRN IM MODERATE TO SEVERE ANXIETY; Start 06/12 at 15:45 Acetaminophen (Tylenol) 650 mg Q4H PRN PO Pain 1-5 or Temp >101F; Start at 15:45 Magnesium Hydroxide (Milk Of Magnesia Liq) 30 ml DAILY PRN PO CONSTIPATION; Start 06/12/17 at 15:45 Al Hydrox/Mg Hydrox/Simethicone (Mag-Al Plus Susp Liq) 30 ml Q6H PRN PO DYSPEPSIA; Start 06/12/17 at 15:45 Acyclovir (Zovirax) 800 mg DAILY PO ; Start 06/12/17 at 16:00 Ketoconazole (Nizoral 2% Cream) 1 applic BID TOPICAL ; Start 06/12/17 at 21:00 Metoprolol Succinate (Toprol Xl) 50 mg DAILY PO Last administered on 16:00; Start 06/12/17 at 16:00 Quetiapine Fumarate (SEROquel) 600 mg HS PO Last administered on 06/12/17t 23: 28; Start 06/12/17 at 21:00 Non-Formulary Medication 1 tab BID PO ; Start 06/12/17 at 21:00; Status UNV Non-Formulary Medication 1 tab DAILY PO ; Start 06/12/17 at 16:00; Status UNV Non-Formulary Medication 2.5 mg DAILY PO ; Start 06/12/17 at 16:00; Status UNV Lisinopril (Prinivil) 2.5 mg DAILY PO ; Start 06/13/17 at 09:00 Miscellaneous (Pill Splitter) 1 ea UNSCH PRN OTHER SEE LABEL COMMENTS; Start 06/12/17 at 16:30 Patient Own Medication PT OWN MED: ODEFSEY... DAILY PO ; Start 06/13/17 at 09: 00; Status Future Hold Patient Own Medication PT OWN MED: CALCIUM CARBONA... BID PO ; Start 06/12/17 at 21:00; Status Future Hold Clonidine (Catapres) 0.1 mg Q6H PRN PO SBP>160, DBP>90; Start 06/12/17 at 18: 30 Pneumococcal Polyvalent Vaccine (Pneumovax-23 Inj) 25 mcg ONCE ONCE IM ; Start 06/13/17 at 09:00; Stop 06/13/17 at 09:01 A/P Problem List: (1) Hypertension ICD Code: I10 - Essential (primary) hypertension Status: Acute (2) HIV (human immunodeficiency virus infection) ICD Code: Z21 - Asymptomatic human immunodeficiency virus [HIV] infection status Status: Acute Assessment and Plan Patient is a 61-year-old male with primary medical history of HTN, HIV, bipolar , schizoaffective disorder who came into the hospital under [place] for psychiatric evaluation. Per review of records [place] report patient has absent temporal lobe syndrome, bipolar disorder, schizophrenia who has been having weight loss and poor hygiene sleeping in the park and restrooms. Patient has been combative to his caregiver. He is now admitted to inpatient psychiatry unit for further evaluation. Consulted for medical management. BiPolar disorder, schizophrenia - Managed by psychiatry team HTN, uncontrolled - Noncompliance behavior. As per review of records has not been taking any of his medications, approximately about a decent go left his brother's home and lives in restrooms and [place]. - Restart home medications metoprolol 50 mg daily, lisinopril 2.5 mg daily - Clonidine when necessary - Monitor BP trend. Will not drastically drop his blood pressure. Noncompliance, HIV Hep C, history - Continue acyclovir 800 mg daily, Odefsey 1 tab daily - Counseled for compliance Needs to take his medications U tox positive for marijuana use. Labs have been reviewed, no significant abnormalities in lab results. DVT prop ambulatory Problem Qualifiers (1) Hypertension: Qualified Codes: I10 - Essential (primary) hypertension Leonardo Spaulding DO Jun 13, 2017 08:37
[2017-06-13] MEDS: KETOCONAZOLE 2% CREAM 15 GM TOPICAL SCH ×2 (09:00→20:01)
[2017-06-13] MEDS ORDERED: LISINOPRIL 5 MG TAB PO SCH (09:00)
[2017-06-13] MEDS ORDERED: [UNRECOGNIZED DRUG - OTHER] PO SCH (09:00)
[2017-06-13] MEDS: ACYCLOVIR 800 MG TAB PO SCH (09:00)
[2017-06-13] MEDS: METOPROLOL SUCCINATE 50 MG EXTENDED RELEASE TAB PO SCH (09:00)
[2017-06-13] MEDS ORDERED: PNEUMOCOCCAL POLYVALENT INJ 25 MCG/0.5 ML SYR IM ONE (09:00)
--- NOTE | 2017-06-13 10:24 | PD.TTN ---
Patient Problems 1. Discharge planning 2. Medication compliance 3. Knowledge deficit 4. Lack of coping skills Progress Toward Goals Provider Present: Dr. Binu Tabares Provider Input: Patient is new to unit and will be starting on a medication regiment. Will monitor progress of patient throughout the week. Psychiatric Counselors Present: DANITZA Velarde Psych Therapist Input: Counselor will be in contact with family memebers to recieve collateral information in regards to patient's progress. Group Spec/RT/OT/SCHMIDT Present: BRAYAN Restrepo Group Spec/RT/OT/SCHMIDT Input: Patient is new to unit and has not attend groups yet. Linda Chandler [facility] Jun 13, 2017 10:24
--- NOTE | 2017-06-13 10:27 | PD.PSY.CON ---
Provisional Diagnosis Admission Date Jun 12, 2017 at 15:46 Le[place] I. Brief psychotic disorder History of Present Illness Service Psychiatry Consult Requested By Dr. Gates Reason for Consult Second opinion Primary Care Physician Unknown HPI 61-year-old male Raffaele acted by his primary care physician yesterday with reports of combative/violent behavior at home with his caregiver. Caregiver is his brother, Sajan. Sajan is unable to care for the patient and the patient has reportedly been staying in bathrooms and homeless, not eating and losing weight. Patient is apparently HIV positive and has "absent temporal lobe syndrome". He is grossly psychotic and unable to provide a cogent history. There are his story diagnoses of bipolar disorder and schizophrenia as well. According to the patient's CT scan, his temporal lobe is gone and this makes his personality and behavior difficult to control. The patient tells his caregiver and this physician that his primary care physician, Dr. Poon is attempting to get him sicker or keep him sick to make money off him. The patient has not been eating lunch or dinner and does not stay in the home. It has been 8 days since the patient left the home and the patient claims his brother kicked him out. The patient has not been taking his medications for HIV. Upon interview, the patient immediately makes nonsensical and psychotic remarks such as "I was born in [facility] and a pink missed". He feels this physician's sole is made of chocolate. He is unable to provide cogent information. 06/13/17 - Second Opinion Patient seen for second opinion and follow-up, chart reviewed. Patient is a 61- year-old man, single, domiciled was brother (who is his operation manager), with a past psychiatric history he The discussion she staff reported patient had been calm and cooperative. As per [facility] act reported patient with absent temporal lobe syndrome , bipolar disorder, schizophrenia, with weight loss and poor hygiene, sleeping in the park and restrooms as well as being combative with caregivers. Patient initially evaluated by psychiatry and stated that he was staying bathrooms, being homeless, not eating and losing weight, noncompliant with treatment and stating that his primary care doctor, Dr. Poon , is attempting to get him a cigarette to make money off him. Patient found lying in hospital bed, noted to be initially hypervigilant was able to engage in interview today. He states that her he had been feeling "pretty good", reports that he was previously with his brother but that his brother had kicked him out. Patient denies having outpatient psychiatry. Physician but followed mainly by his primary care doctor Dr. Poon. He reports that he has had 1 previous psychiatric hospitalization 18 years ago in [place] but denies any previous suicide attempt or self-injurious behavior. He states that his best friend is Logan and that his family thinks he sick because of his belief. 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 When asked about what brought to the hospital he states that he recently saw his primary care doctor has told him that he "lost part of my brain" and was sent here by his PCP is "half of my brain is missing". Patient noted to be tangential during interview. He continues report that he had been sleeping in the showers in the [place] for the past 4 weeks after he had been "kicked out" by his brother and that his brother had been saying lies about him. He denies any auditory hallucinations but did state seeing Logan is for second. He continues to report that his brother and his family is after him because he loves Logan. Past Family Social History Coded Allergies: Sulfa (Sulfonamide Antibiotics) (Unverified Allergy, Severe, Hives, ) Reported Medications Metoprolol Succinate ER 24 HR (Toprol XL) 50 Mg Tab, 50 MG PO DAILY, #30 TAB 0 Refills 06/11/17 Wowezdoogvxkn-Jpzkphdcfit-Apliyazwt Alafenam (Odefsey) 200-200-25 Mg Tab, 1 TAB PO DAILY for Mgmt Viral Infection, #30 TAB 0 Refills 06/11/17 Benztropine (Benztropine) 0.5 Mg Tab, 1 MG PO BID, #60 TAB 0 Refills 06/11/17 Acyclovir (Acyclovir) 800 Mg Tab, 800 MG PO DAILY for Mgmt Viral Infection, TAB 0 Refills 06/11/17 Lisinopril (Lisinopril) 2.5 Mg Tab, 2.5 MG PO DAILY, #30 TAB 0 Refills 06/11/17 Testosterone Cypionate Inj (Testosterone Cypionate Inj) 200 Mg/Ml Inj, 200 MG IM for Hormone Replacement, #1 VIAL 0 Refills 06/11/17 Ketoconazole Topical (Ketoconazole Topical) 2% Cream, 1 APPLIC TOPICAL BID for Fungal Infection, #15 GM 0 Refills 06/11/17 Divalproex ER (Depakote ER) 500 Mg Drea, 500 MG PO HS for Control Seizures, # 30 TAB 0 Refills 06/11/17 Haloperidol (Haloperidol) 1 Mg Tab, 1 MG PO DAILY, TAB 0 Refills 06/11/17 Quetiapine (Seroquel) 300 Mg Tab, 600 MG PO HS, #30 TAB 0 Refills 06/11/17 Citalopram (Celexa) 10 Mg Tab, 5 MG PO DAILY for Control Depression, #30 TAB 0 Refills 06/11/17 Risperidone (Risperdal) 2 Mg Tab, 2 MG PO Q12HR, #60 TAB 0 Refills 06/11/17 Calcium Carbonate-Vitamin D W/Minerals (Caltrate 600+D Plus Minerals) 600-800 Mg -Unit Tab, 1 TAB PO BID for Nutritional Supplement, TAB 0 Refills 06/11/17 Discontinued Reported Medications Lisinopril 2.5 mg (Lisinopril 2.5 mg) 2.5 Mg Tab, 1 TAB PO DAILY, TAB 01/06/16 Jsgugvureenwj-Mhumvaotjjs-Bffv (Complera) Tab, 1 TAB PO DAILY, TAB 01/06/16 Calcium Carbonate-Vitamin D (Calcium 500+D) 500 + Tab, 600 + PO BID, TAB 01/06/16 Benztropine Mesylate (Benztropine Mesylate) 1 Mg Tab, 1 MG PO Q12H, TAB 01/06/16 Atenolol (Atenolol) 50 Mg Tab, 50 MG PO DAILY, TAB 01/06/16 Acyclovir (Zovirax) 800 Mg Tab, 800 MG PO DAILY, 0 Refills 10/19/08 [place] Carbonate ([place] Carbonate) 150 Mg Cap, 300 MG PO TID, 0 Refills 10/19/08 Haloperidol (Haldol) 5 Mg Tab, 5 MG PO DAILY, 0 Refills 10/19/08 Current Medications Medications (Trade) Dose Ordered Sig/Zina Route Start Time Stop Time Status Last Admin (Ativan) 1 mg Q6H PRN PO 06/12/17 15:45 (Ativan Inj) 1 mg Q6H PRN IM 06/12/17 15:45 (Tylenol) 650 mg Q4H PRN PO 06/12/17 15:45 (Milk Of Magnesia Liq) 30 ml DAILY PRN PO 06/12/17 15:45 (Mag-Al Plus Susp Liq) 30 ml Q6H PRN PO 06/12/17 15:45 (Zovirax) 800 mg DAILY PO 06/12/17 16:00 (Nizoral 2% Cream) 1 applic BID TOPICAL 06/12/17 21:00 (Toprol Xl) 50 mg DAILY PO 06/12/17 16:00 06/12/17 16:00 (SEROquel) 600 mg HS PO 06/12/17 21:00 06/12/17 23:28 (Prinivil) 2.5 mg DAILY PO 06/13/17 09:00 (Pill Splitter) 1 ea UNSCH PRN OTHER 06/12/17 16:30 Patient Own Medication PT OWN MED: ODEFSEY... DAILY PO 06/13/17 09:00 Future Hold Patient Own Medication PT OWN MED: CALCIUM CARBONA... BID PO 06/12/17 21:00 Future Hold (Catapres) 0.1 mg Q6H PRN PO 06/12/17 18:30 Patient's Strengths (min. 2) Supportive brother and has access to healthcare. Physical Exam Vital Signs Vital Signs Date Time Temp Pulse Resp B/P (MAP) Pulse Ox O2 Delivery O2 Flow Rate FiO2 06/13/17 05:00 97.1 72 16 129/61 (83) 96 06/12/17 19:33 Room Air I/O 06/13/17 06/13/17 06/14/17 08:00 16:00 00:00 Intake Total 1200 ml Output Total 325 ml Balance 875 ml Lab Results Test 06/13/17 06:55 White Blood Count 7.4 TH/MM3 Red Blood Count 4.86 MIL/MM3 Hemoglobin 15.0 GM/DL Hematocrit 44.9 % Mean Corpuscular Volume 92.4 FL Mean Corpuscular Hemoglobin 30.9 PG Mean Corpuscular Hemoglobin Concent 33.5 % Red Cell Distribution Width 12.9 % Platelet Count 246 TH/MM3 Mean Platelet Volume 8.4 FL Neutrophils (%) (Auto) 64.8 % Lymphocytes (%) (Auto) 18.8 % Monocytes (%) (Auto) 9.0 % Eosinophils (%) (Auto) 6.8 % Basophils (%) (Auto) 0.6 % Neutrophils # (Auto) 4.8 TH/MM3 Lymphocytes # (Auto) 1.4 TH/MM3 Monocytes # (Auto) 0.7 TH/MM3 Eosinophils # (Auto) 0.5 TH/MM3 Basophils # (Auto) 0.0 TH/MM3 CBC Comment DIFF FINAL Differential Comment Blood Urea Nitrogen 17 MG/DL Creatinine 0.89 MG/DL Random Glucose 95 MG/DL Total Protein 6.6 GM/DL Albumin 3.2 GM/DL Calcium Level 8.8 MG/DL Alkaline Phosphatase 78 U/L Aspartate Amino Transf (AST/SGOT) 25 U/L Alanine Aminotransferase (ALT/SGPT) 25 U/L Total Bilirubin 0.5 MG/DL Sodium Level 141 MEQ/L Potassium Level 3.7 MEQ/L Chloride Level 108 MEQ/L Carbon Dioxide Level 26.2 MEQ/L Anion Gap 7 MEQ/L Estimat Glomerular Filtration Rate 87 ML/MIN Triglycerides Level 72 MG/DL Cholesterol Level 84 MG/DL LDL Cholesterol 32 MG/DL HDL Cholesterol 37.5 MG/DL Cholesterol/HDL Ratio 2.24 RATIO Vitamin B12 Level 790 PG/ML Thyroid Stimulating Hormone 3rd Gen 1.080 uIU/ML Mental Status Examination Appearance: Disheveled Consciousness: Alert Orientation: Person, Place Motor Activity: Normal gait Speech: Slow Language: Perseveration Fund of Knowledge: Adequate, Inadequate Attention and Concentration: Inadequate Memory: Impaired Mood: Other ("okay") Affect: Blunt Thought Process & Associations: Loose associations, Disorganized (at times), Tangential Thought Content: Bizarre thinking, Delusional Hallucination Type: None Delusion Type: Bizarre, Paranoid Suicidal Ideation: No Suicidal Plan: No Suicidal Intention: No Homicidal Ideation: No Homicidal Plan: No Homicidal Intention: No Insight: Poor Judgment: Poor Assessment & Plan Problem List: (1) Brief psychotic disorder ICD Codes: F23 - Brief psychotic disorder Assessment & Plan Estimated LOS: 5-7 days. I have seen and examined this patient, reviewed the documentation and I agree and concur with Dr. Gates's assessment and plan. Consult appreciated. Patient is a 61-year-old man with a reported history of absent temporal lobe syndrome, bipolar disorder, schizophrenia who recently brought under [place] act for paranoid delusions, believes he preoccupied with reports of combative and violent behavior toward caregiver (brother) as well as recent homelessness which concern for his ability to self-care is impacted by his current symptomatology. Patient to continue quetiapine 600 mg by mouth at bedtime for psychosis. Continue to medications and recommendations as per primary medical team. Collateral pending from brother. Discharge planning in progress. Discharge Planning Patient due to back to his residence once psychiatrically stable Jhoan Tabares MD Jun 13, 2017 10:26
--- NOTE | 2017-06-13 13:29 | EKG ---
Date Performed: 06/13/2017 Time Performed: 08:16:37 PTAGE: 61 years EKG: Sinus rhythm POSSIBLE RIGHT ATRIAL ENLARGEMENT POSSIBLE RIGHT VENTRICULAR HYPERTROPHY ST ELEVATION CONSISTENT WIT H INJURY, PERICARDITIS, OR EARLY REPOLARIZATION ABNORMAL ECG NO PREVIOUS TRACING DOCTOR: Bobby Hatfield Interpretating Date/Time 06/13/2017 13:28:21
[2017-06-13 16:01] LABS: HEMOGLOBIN A1C 5.5 % (4.3-6.0)
[2017-06-13 17:44] VITALS: BP 165/92; PULSE 84; RESP 17; TEMP 98.3; O2SAT 98
[2017-06-13 19:58] VITALS: BP 158/101
[2017-06-13] MEDS: cloNIDine HCL 0.1 MG TAB PO PRN (19:59)
[2017-06-13] MEDS: QUEtiapine FUMARATE 300 MG TAB PO SCH (19:59)
[2017-06-13 21:00] VITALS: BP 154/76
[2017-06-14 06:02] VITALS: BP 182/98; PULSE 72; RESP 17; TEMP 98.1
[2017-06-14] MEDS: cloNIDine HCL 0.1 MG TAB PO PRN ×2 (06:16→17:29)
[2017-06-14 06:59] VITALS: BP 146/68
[2017-06-14] MEDS: ACYCLOVIR 800 MG TAB PO SCH (09:12)
[2017-06-14] MEDS: METOPROLOL SUCCINATE 50 MG EXTENDED RELEASE TAB PO SCH (09:12)
--- NOTE | 2017-06-14 09:14 | HHI.PR ---
Subjective Remarks Patient is a 61-year-old male with primary medical history of HTN, HIV, bipolar , schizoaffective disorder who came into the hospital under [facility] act for psychiatric evaluation. Per review of records [facility] act report patient has absent temporal lobe syndrome, bipolar disorder, schizophrenia who has been having weight loss and poor hygiene sleeping in the park and restrooms. Patient has been combative to his caregiver. He is now admitted to inpatient psychiatry unit for further evaluation. Consulted for medical management. Patient seen and examined today. As per nursing, patient has been having uncontrolled high blood pressure. Patient has not been taking his HIV and BP medications. Patient states that he is doing okay. 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 States that he's been doing well and has been eating okay. Mentions "I love to eat, I love food." Denies weight loss. Denies pain and discomfort. Denies SOB/ dyspnea. Denies chest pain, palpitations, headaches, dizziness. Denies fevers, chills, n/v/d. Denies dysuria. 06-13 NO CURRENT COMPLAINTS DW RN AND PT ORIENTED TO PERSON, PLACE, TIME, SITUATION 06-14 no new complaints DW RN AND PATIENT Objective Vitals Vital Signs Date Time Temp Pulse Resp B/P (MAP) Pulse Ox O2 Delivery O2 Flow Rate FiO2 06/14/17 06:59 146/68 (94) 06/14/17 06:02 98.1 72 17 182/98 (126) 06/13/17 21:00 154/76 (102) 06/13/17 19:58 158/101 (120) 06/13/17 17:44 98.3 84 17 165/92 (116) 98 I/O 06/13/17 06/13/17 06/13/17 06/14/17 06/14/17 06/14/17 07:00 15:00 23:00 07:00 15:00 23:00 Intake Total 960 ml 960 ml 1960 ml 0 ml Output Total 325 ml 3 ml Balance 635 ml 960 ml 1957 ml 0 ml Intake Oral 960 ml 960 ml 1960 ml 0 ml Output Urine Total 325 ml 3 ml # Voids 1 1 3 # Bowel Movements 2 Result Diagram: 06/13/17 0655 06/13/17 0655 Other Results Laboratory Tests Test 06/11/17 16:32 06/11/17 17:00 06/13/17 06:55 White Blood Count 10.1 TH/MM3 7.4 TH/MM3 Red Blood Count 4.70 MIL/MM3 4.86 MIL/MM3 Hemoglobin 14.7 GM/DL 15.0 GM/DL Hematocrit 43.4 % 44.9 % Mean Corpuscular Volume 92.4 FL 92.4 FL Mean Corpuscular Hemoglobin 31.3 PG 30.9 PG Mean Corpuscular Hemoglobin Concent 33.9 % 33.5 % Red Cell Distribution Width 12.8 % 12.9 % Platelet Count 273 TH/MM3 246 TH/MM3 Mean Platelet Volume 7.9 FL 8.4 FL Neutrophils (%) (Auto) 72.9 % 64.8 % Lymphocytes (%) (Auto) 14.6 % 18.8 % Monocytes (%) (Auto) 7.8 % 9.0 % Eosinophils (%) (Auto) 3.8 % 6.8 % Basophils (%) (Auto) 0.9 % 0.6 % Neutrophils # (Auto) 7.3 TH/MM3 4.8 TH/MM3 Lymphocytes # (Auto) 1.5 TH/MM3 1.4 TH/MM3 Monocytes # (Auto) 0.8 TH/MM3 0.7 TH/MM3 Eosinophils # (Auto) 0.4 TH/MM3 0.5 TH/MM3 Basophils # (Auto) 0.1 TH/MM3 0.0 TH/MM3 CBC Comment DIFF FINAL DIFF FINAL Differential Comment Blood Urea Nitrogen 18 MG/DL 17 MG/DL Creatinine 1.15 MG/DL 0.89 MG/DL Random Glucose 105 MG/DL 95 MG/DL Total Protein 7.6 GM/DL 6.6 GM/DL Albumin 3.9 GM/DL 3.2 GM/DL Calcium Level 9.2 MG/DL 8.8 MG/DL Alkaline Phosphatase 104 U/L 78 U/L Aspartate Amino Transf (AST/SGOT) 52 U/L 25 U/L Alanine Aminotransferase (ALT/SGPT) 40 U/L 25 U/L Total Bilirubin 0.5 MG/DL 0.5 MG/DL Sodium Level 139 MEQ/L 141 MEQ/L Potassium Level 3.7 MEQ/L 3.7 MEQ/L Chloride Level 104 MEQ/L 108 MEQ/L Carbon Dioxide Level 30.4 MEQ/L 26.2 MEQ/L Anion Gap 5 MEQ/L 7 MEQ/L Estimat Glomerular Filtration Rate 65 ML/MIN 87 ML/MIN Valproic Acid (Depakene) Level 5 MCG/ML Urine Opiates Screen NEG Urine Barbiturates Screen NEG Urine Amphetamines Screen NEG Urine Benzodiazepines Screen NEG Urine Cocaine Screen NEG Urine Cannabinoids Screen POS Hemoglobin A1c 5.5 % Triglycerides Level 72 MG/DL Cholesterol Level 84 MG/DL LDL Cholesterol 32 MG/DL HDL Cholesterol 37.5 MG/DL Cholesterol/HDL Ratio 2.24 RATIO Vitamin B12 Level 790 PG/ML Thyroid Stimulating Hormone 3rd Gen 1.080 uIU/ML Objective Remarks GENERAL: Awake alert and oriented answering talkative cooperative SKIN: Warm and dry. HEAD: Atraumatic. Normocephalic. EYES: Pupils equal and round. No scleral icterus. No injection or drainage. Extraocular muscles intact ENT: No nasal bleeding or discharge. Mucous membranes pink and moist. Tongue is midline NECK: Trachea midline. No JVD. Supple CARDIOVASCULAR: Regular rate and rhythm. S1-S2 no S3 or S4 RESPIRATORY: No accessory muscle use. Clear to auscultation. Breath sounds equal bilaterally. GASTROINTESTINAL: Abdomen soft, non-tender, nondistended. Hepatic and splenic margins not palpable. MUSCULOSKELETAL: Extremities without clubbing, cyanosis, or edema. No obvious deformities. NEUROLOGICAL: Awake and alert. No obvious cranial nerve deficits. Motor grossly within normal limits. Five out of 5 muscle strength in the arms and legs. Normal speech. PSYCHIATRIC: INAppropriate mood and affect; insight and judgment ABnormal. Procedures NONE Medications and IVs Current Medications Atenolol (Tenormin) 50 mg ONCE ONCE PO Last administered on 06/11/17 18:16; Start 06/11/17 at 18:15; Stop 06/11/17 at 18:16; Status DC Lisinopril (Prinivil) 2.5 mg ONCE ONCE PO Last administered on 06/11/17 18: 16; Start 06/11/17 at 18:15; Stop 06/11/17 at 18:16; Status DC Clonidine (Catapres) 0.1 mg ONCE ONCE PO Last administered on 06/11/17 19:00 ; Start 06/11/17 at 19:00; Stop 06/11/17 at 19:03; Status DC Amlodipine Besylate (Norvasc) 10 mg ONCE ONCE PO Last administered on 20:45; Start 06/11/17 at 20:45; Stop 06/11/17 at 20:46; Status DC Clonidine (Catapres) 0.1 mg ONCE ONCE PO Last administered on 06/11/17 22:15 ; Start 06/11/17 at 22:15; Stop 06/11/17 at 22:16; Status DC Atenolol (Tenormin) 50 mg ONCE ONCE PO Last administered on 06/12/17 08:11; Start 06/12/17 at 08:00; Stop 06/12/17 at 08:01; Status DC Lisinopril (Prinivil) 5 mg ONCE ONCE PO Last administered on 06/12/17 08:10 ; Start 06/12/17 at 08:00; Stop 06/12/17 at 08:01; Status DC Lisinopril (Prinivil) 5 mg ONCE ONCE PO Last administered on 06/12/17 11:04 ; Start 06/12/17 at 11:00; Stop 06/12/17 at 11:02; Status DC Clonidine (Catapres) 0.1 mg ONCE ONCE PO Last administered on 06/12/17 16:05 ; Start 06/12/17 at 15:45; Stop 06/12/17 at 15:47; Status DC Lorazepam (Ativan) 1 mg Q6H PRN PO MODERATE TO SEVERE ANXIETY; Start 06/12/17 at 15:45 Lorazepam (Ativan Inj) 1 mg Q6H PRN IM MODERATE TO SEVERE ANXIETY; Start 06/12 at 15:45 Acetaminophen (Tylenol) 650 mg Q4H PRN PO Pain 1-5 or Temp >101F; Start at 15:45 Magnesium Hydroxide (Milk Of Magnesia Liq) 30 ml DAILY PRN PO CONSTIPATION; Start 06/12/17 at 15:45 Al Hydrox/Mg Hydrox/Simethicone (Mag-Al Plus Susp Liq) 30 ml Q6H PRN PO DYSPEPSIA; Start 06/12/17 at 15:45 Acyclovir (Zovirax) 800 mg DAILY PO Last administered on 06/13/17 09:00; Start 06/12/17 at 16:00 Ketoconazole (Nizoral 2% Cream) 1 applic BID TOPICAL ; Start 06/12/17 at 21:00 Metoprolol Succinate (Toprol Xl) 50 mg DAILY PO Last administered on 09:00; Start 06/12/17 at 16:00 Quetiapine Fumarate (SEROquel) 600 mg HS PO Last administered on 06/13/17 19: 59; Start 06/12/17 at 21:00 Non-Formulary Medication 1 tab BID PO ; Start 06/12/17 at 21:00; Status UNV Non-Formulary Medication 1 tab DAILY PO ; Start 06/12/17 at 16:00; Status UNV Non-Formulary Medication 2.5 mg DAILY PO ; Start 06/12/17 at 16:00; Status UNV Lisinopril (Prinivil) 2.5 mg DAILY PO Last administered on 06/13/17 09:00; Start 06/13/17 at 09:00 Miscellaneous (Pill Splitter) 1 ea UNSCH PRN OTHER SEE LABEL COMMENTS; Start 06/12/17 at 16:30 Patient Own Medication PT OWN MED: ODEFSEY... DAILY PO ; Start 06/13/17 at 09: 00; Status Future Hold Patient Own Medication PT OWN MED: CALCIUM CARBONA... BID PO ; Start 06/12/17 at 21:00; Status Future Hold Clonidine (Catapres) 0.1 mg Q6H PRN PO SBP>160, DBP>90 Last administered on 06:16; Start 06/12/17 at 18:30 Pneumococcal Polyvalent Vaccine (Pneumovax-23 Inj) 25 mcg ONCE ONCE IM ; Start 06/13/17 at 09:00; Stop 06/13/17 at 09:01; Status DC A/P Problem List: (1) Hypertension ICD Code: I10 - Essential (primary) hypertension Status: Acute (2) HIV (human immunodeficiency virus infection) ICD Code: Z21 - Asymptomatic human immunodeficiency virus [HIV] infection status Status: Acute Assessment and Plan Patient is a 61-year-old male with primary medical history of HTN, HIV, bipolar , schizoaffective disorder who came into the hospital under act for psychiatric evaluation. Per review of records [facility] act report patient has absent temporal lobe syndrome, bipolar disorder, schizophrenia who has been having weight loss and poor hygiene sleeping in the park and restrooms. Patient has been combative to his caregiver. He is now admitted to inpatient psychiatry unit for further evaluation. Consulted for medical management. BiPolar disorder, schizophrenia - Managed by psychiatry team HTN, uncontrolled - Noncompliance behavior. As per review of records has not been taking any of his medications, approximately about a decent go left his brother's home and lives in restrooms and [place]. - Restart home medications metoprolol 50 mg daily, lisinopril WILL INCREASE TO 10MG PO DAILY - Clonidine when necessary - Monitor BP trend. Will not drastically drop his blood pressure. Noncompliance, HIV Hep C, history - Continue acyclovir 800 mg daily, Odefsey 1 tab daily - Counseled for compliance Needs to take his medications U tox positive for marijuana use. Labs have been reviewed, no significant abnormalities in lab results. DVT prop ambulatory WILL FOLLOW BLOOD PRESSURES Discharge Planning WILL FOLLOW BLOOD PRESSURES Problem Qualifiers (1) Hypertension: Qualified Codes: I10 - Essential (primary) hypertension Leonardo Spaulding DO Jun 14, 2017 09:14
--- NOTE | 2017-06-14 11:33 | HHI.PYPN ---
Subjective Remarks Patient seen for follow-up, chart reviewed. Discussion she staff stated that patient has had difficulty with control blood pressure had been provided with when necessary clonidine twice last evening. Patient found lying in hospital bed, cooperative. Patient states that he had been feeling "pretty good", reports sleeping well, no issues with the drinking, no difficulty with urination bowel movement. Patient states that he is unable to return home because his brother is "the wicked this person". Patient continued to be somewhat tangential during interview and stating feeling paranoid about his brother. Patient continues to be religiously preoccupied stating that he loves God, denies any auditory hallucinations but states that he is in communication with God to other ways. Patient noted to be somewhat disorganized during interview. Patient was not able to explain the rationale of him sleeping the hardest and believes that it is normal to sleep in public restrooms. Review of Systems Except as stated in HPI: all other systems reviewed are Neg Mental Status Examination Appearance: Disheveled Consciousness: Alert Orientation: Person, Place Motor Activity: Normal gait Speech: Slow Language: Perseveration Fund of Knowledge: Adequate, Inadequate Attention and Concentration: Inadequate Memory: Impaired Mood: Other ("fine") Affect: Labile Thought Process & Associations: Loose associations, Disorganized, Tangential Thought Content: Bizarre thinking, Delusional Hallucination Type: None Delusion Type: Bizarre, Paranoid Suicidal Ideation: No Suicidal Plan: No Suicidal Intention: No Homicidal Ideation: No Homicidal Plan: No Homicidal Intention: No Insight: Poor Judgment: Poor Results Vitals/IOs Vital Signs Date Time Temp Pulse Resp B/P (MAP) Pulse Ox O2 Delivery O2 Flow Rate FiO2 06/14/17 06:59 146/68 (94) 06/14/17 06:02 98.1 72 17 06/13/17 17:44 98 06/12/17 19:33 Room Air Intake and Output 06/14/17 06/14/17 06/15/17 08:00 16:00 00:00 Intake Total 0 ml Balance 0 ml Assessment & Plan Problem List: (1) Brief psychotic disorder ICD Codes: F23 - Brief psychotic disorder Assessment & Plan Patient this time continues to be religiously preoccupied, disorganized, and paranoid concerning his brother. Patient continues to have poor insight. Will increase quetiapine to 25 mg a.m., 25 mg p.m. and 600 mg at bedtime for psychosis. Continue rest of medications and recommendations as per primary medical team. Collateral pending from brother. Discharge planning in progress Justification for Cont. Inpt. At risk for further decompensation if at lower level of care Discharge Planning Patient to be discharged back to brother's residence or assisted living facility. Jhoan Tabares MD Jun 14, 2017 11:33
[2017-06-14] MEDS: QUEtiapine FUMARATE 25 MG TAB PO SCH (12:00)
[2017-06-14 18:12] VITALS: BP 182/120; PULSE 86; RESP 18; TEMP 98.7; O2SAT 96
[2017-06-14 18:32] VITALS: BP 180/90
[2017-06-14] MEDS: KETOCONAZOLE 2% CREAM 15 GM TOPICAL SCH (21:00)
[2017-06-14] MEDS ORDERED: cloNIDine HCL 0.1 MG TAB PO ONE (21:15)
[2017-06-14] MEDS: LORazepam 1 MG TAB PO PRN (22:04)
[2017-06-14] MEDS: QUEtiapine FUMARATE 300 MG TAB PO SCH (22:05)
[2017-06-14 23:00] VITALS: BP 181/106
[2017-06-15] VITALS (13 sets, daily range): BP systolic 159–195; BP diastolic 96–120; PULSE 78–96; RESP 17–18; TEMP 97.6–98.6; O2SAT 96–100
[2017-06-15] MEDS: cloNIDine HCL 0.1 MG TAB PO PRN ×3 (02:22→18:15)
[2017-06-15] MEDS ORDERED: hydrALAZINE HCL 50 MG TAB PO ONE (03:30)
[2017-06-15] MEDS ORDERED: HALOPERIDOL LACTATE 5 MG/ML AMP IV PUSH ONE (06:00)
[2017-06-15] MEDS: METOPROLOL SUCCINATE 50 MG EXTENDED RELEASE TAB PO SCH (08:07)
[2017-06-15] MEDS: ACYCLOVIR 800 MG TAB PO SCH (08:07)
[2017-06-15] MEDS: QUEtiapine FUMARATE 25 MG TAB PO SCH ×2 (08:07→13:18)
[2017-06-15] MEDS: LISINOPRIL 10 MG TAB PO SCH (08:08)
[2017-06-15] MEDS: KETOCONAZOLE 2% CREAM 15 GM TOPICAL SCH ×2 (08:08→21:00)
[2017-06-15] MEDS: LORazepam 1 MG TAB PO PRN ×2 (08:08→21:48)
[2017-06-15] MEDS ORDERED: METOPROLOL SUCCINATE 50 MG EXTENDED RELEASE TAB PO ONE (09:30)
--- NOTE | 2017-06-15 09:32 | HHI.PR ---
Subjective Remarks Patient is a 61-year-old male with primary medical history of HTN, HIV, bipolar , schizoaffective disorder who came into the hospital under [place] for psychiatric evaluation. Per review of records [place] report patient has absent temporal lobe syndrome, bipolar disorder, schizophrenia who has been having weight loss and poor hygiene sleeping in the park and restrooms. Patient has been combative to his caregiver. He is now admitted to inpatient psychiatry unit for further evaluation. Consulted for medical management. Patient seen and examined today. As per nursing, patient has been having uncontrolled high blood pressure. Patient has not been taking his HIV and BP medications. Patient states that he is doing okay. 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 States that he's been doing well and has been eating okay. Mentions "I love to eat, I love food." Denies weight loss. Denies pain and discomfort. Denies SOB/ dyspnea. Denies chest pain, palpitations, headaches, dizziness. Denies fevers, chills, n/v/d. Denies dysuria. 06-13 NO CURRENT COMPLAINTS DW RN AND PT ORIENTED TO PERSON, PLACE, TIME, SITUATION 06-14 no new complaints DW RN AND PATIENT 12-1 Hypertensive overnight to 195/110 Denies visual changes and GRIMALDO No complaints this am Objective Vital Signs Date Time Temp Pulse Resp B/P (MAP) Pulse Ox O2 Delivery O2 Flow Rate FiO2 06/15/17 06:11 97.6 96 18 195/110 (138) 96 06/15/17 05:30 195/110 (138) 06/15/17 02:15 180/100 (126) 06/15/17 01:00 159/100 (119) 06/14/17 23:00 181/106 (131) 06/14/17 18:32 180/90 (120) 06/14/17 18:12 98.7 86 18 182/120 (140) 96 I/O 06/14/17 06/14/17 06/14/17 06/15/17 06/15/17 06/15/17 07:00 15:00 23:00 07:00 15:00 23:00 Intake Total 0 ml 480 ml 1320 ml 0 ml Balance 0 ml 480 ml 1320 ml 0 ml Intake Oral 0 ml 480 ml 1320 ml 0 ml # Voids 3 5 4 Result Diagram: 06/13/17 0655 06/13/17 0655 Objective Remarks GENERAL: Awake alert and oriented answering talkative cooperative SKIN: Warm and dry. HEAD: Atraumatic. Normocephalic. EYES: Pupils equal and round. No scleral icterus. No injection or drainage. Extraocular muscles intact ENT: No nasal bleeding or discharge. Mucous membranes pink and moist. Tongue is midline NECK: Trachea midline. No JVD. Supple CARDIOVASCULAR: Regular rate and rhythm. S1-S2 no S3 or S4 RESPIRATORY: No accessory muscle use. Clear to auscultation. Breath sounds equal bilaterally. GASTROINTESTINAL: Abdomen soft, non-tender, nondistended. Hepatic and splenic margins not palpable. MUSCULOSKELETAL: Extremities without clubbing, cyanosis, or edema. No obvious deformities. NEUROLOGICAL: Awake and alert. No obvious cranial nerve deficits. Motor grossly within normal limits. Normal speech. PSYCHIATRIC: INAppropriate mood and affect; insight and judgment ABnormal. A/P Assessment and Plan Patient is a 61-year-old male with primary medical history of HTN, HIV, bipolar , schizoaffective disorder who came into the hospital under [place] for psychiatric evaluation. Per review of records [place] report patient has absent temporal lobe syndrome, bipolar disorder, schizophrenia who has been having weight loss and poor hygiene sleeping in the park and restrooms. Patient has been combative to his caregiver. He is now admitted to inpatient psychiatry unit for further evaluation. Consulted for medical management. BiPolar disorder, schizophrenia - Managed by psychiatry team HTN, uncontrolled. Patient remains hypertensive despite restarting of home BP meds and prn Clonidine. BP 195/110 overnight. - Noncompliance behavior. As per review of records has not been taking any of his medications, left his brother's home and lives in restrooms and [place]. - Increase Metoprolol to 100 mg daily, continue lisinopril 10 mg qd - Increase prn Clonidine to 0.2 mg - Monitor BP trend Noncompliance, HIV Hep C, history - Continue acyclovir 800 mg daily, Odefsey 1 tab daily - Counseled for compliance Needs to take his medications U tox positive for marijuana use. Labs have been reviewed, no significant abnormalities in lab results. DVT prop ambulatory WILL FOLLOW BLOOD PRESSURES Discharge Planning Pending BP control Sara Burnette MD Jun 15, 2017 09:32
--- NOTE | 2017-06-15 11:16 | HHI.PYPN ---
Subjective Remarks Patient seen for follow-up, chart reviewed. Discussion with nursing staff reported the patient has had elevated blood pressure with evening he required when necessary medications to help control. Patient found lying in hospital bed , cooperative. Patient states that he slept well last night about eating and drinking, probably bowel movement, denies any physical complaints at this time. Patient stated his mood is "good", denies any perceptual disturbances denies any SI or HI. He states that he doesn't want to do with his brother and does not plan on returning back home with him. Patient states that "dameon is big enough, Logan can be his friend me not me". Patient went on to endorse some methodist delusions stating he cannot asked me to do a book/movie about AIDS. He states that he was aware prior to him being born that Logan had admission for [place]. He states it is that his mission is to do away with AIDS. He states that his plan when he leaves here is to go back to live in the streets stating that he doesn't care that he is out in the streets that people have been in the past. Patient insight is poor. Review of Systems Except as stated in HPI: all other systems reviewed are Neg Mental Status Examination Appearance: Appropriate Consciousness: Alert Orientation: Person, Place Motor Activity: Normal gait Speech: Unremarkable Language: Perseveration Fund of Knowledge: Adequate, Inadequate Attention and Concentration: Inadequate Memory: Impaired Mood: Other ("fine") Affect: Blunt Thought Process & Associations: Loose associations, Disorganized, Tangential Thought Content: Bizarre thinking, Delusional Hallucination Type: None Delusion Type: Bizarre, Paranoid, Other (methodist) Suicidal Ideation: No Suicidal Plan: No Suicidal Intention: No Homicidal Ideation: No Homicidal Plan: No Homicidal Intention: No Insight: Poor Judgment: Poor Results Vitals/IOs Vital Signs Date Time Temp Pulse Resp B/P (MAP) Pulse Ox O2 Delivery O2 Flow Rate FiO2 06/15/17 10:51 178/118 (138) 06/15/17 09:30 80 18 100 06/15/17 07:15 98.2 06/12/17 19:33 Room Air Intake and Output 06/15/17 06/15/17 06/16/17 08:00 16:00 00:00 Intake Total 240 ml Balance 240 ml Assessment & Plan Problem List: (1) Brief psychotic disorder ICD Codes: F23 - Brief psychotic disorder Assessment & Plan Patient continues to have methodist delusions, very poor insight, poor judgment in relation to his plans postdischarge state that he feels it's okay to live in the streets and focused on the belief that his mission is to make a movie about AIDS that had been tasked to him by Logan. Patient at this time has delusions that are impacting his ability to be appropriate to assess her self-care. We' ll increase quetiapine to 50 mg a.m. 50 mg p.m. 600 mg at bedtime. Continue recommendations as per medical team. Continue to monitor blood pressure as it has been elevated despite current regimen. Discharge planning in progress Justification for Cont. Inpt. At risk for further decompensation if at lower level of care Discharge Planning Patient to be discharged to an assisted living facility since patient refuses to return back to brother's residence once psychiatrically stable Jhoan Tabares MD Jun 15, 2017 11:16
[2017-06-15] MEDS: QUEtiapine FUMARATE 300 MG TAB PO SCH (21:16)
[2017-06-15] MEDS ORDERED: NIFEdipine 60 MG SUSTAINED RELEASE TAB PO ONE (23:15)
[2017-06-16] VITALS (8 sets, daily range): BP systolic 152–190; BP diastolic 91–114; PULSE 89–97; RESP 17–18; TEMP 97.4–97.5; O2SAT 97–98
[2017-06-16] MEDS: cloNIDine HCL 0.1 MG TAB PO PRN ×3 (00:30→21:15)
[2017-06-16] MEDS: KETOCONAZOLE 2% CREAM 15 GM TOPICAL SCH ×2 (07:50→21:00)
[2017-06-16 08:12] LABS: AUTOMATED NEUTROPHIL # 7.6 TH/MM3 (1.8-7.7); BASOPHIL # 0.1 TH/MM3 (0-0.2); BASOPHIL % 0.6 % (0.0-2.0); EOSINOPHIL # 0.4 TH/MM3 (0-0.4); EOSINOPHIL % 3.4 % (0.0-4.0); HEMATOCRIT 47.8 % (39.0-51.0); HEMOGLOBIN 15.9 GM/DL (13.0-17.0); LYMPHOCYTE # 1.4 TH/MM3 (1.0-4.8); MEAN CELL VOLUME 91.5 FL (80.0-100.0); MEAN CORPUSCULAR HEMOGLOBIN 30.4 PG (27.0-34.0); MEAN CORPUSCULAR HGB CONC 33.3 % (32.0-36.0); MEAN PLATELET VOLUME 8.7 FL (7.0-11.0); MONO % 8.3 % (0.0-8.0); MONOCYTE # 0.9 TH/MM3 (0-0.9); NEUT % 73.7 % (16.0-70.0); PLATELET COUNT 290 TH/MM3 (150-450); RED BLOOD COUNT 5.23 MIL/MM3 (4.50-5.90); RED CELL DISTRIBUTION WIDTH 12.9 % (11.6-17.2); WHITE BLOOD COUNT 10.3 TH/MM3 (4.0-11.0)
[2017-06-16] MEDS: ACYCLOVIR 800 MG TAB PO SCH (08:19)
[2017-06-16] MEDS: NIFEdipine 60 MG SUSTAINED RELEASE TAB PO SCH (08:19)
[2017-06-16] MEDS: METOPROLOL SUCCINATE 50 MG EXTENDED RELEASE TAB PO SCH (08:19)
[2017-06-16] MEDS: LISINOPRIL 10 MG TAB PO SCH (08:19)
[2017-06-16] MEDS: QUEtiapine FUMARATE 25 MG TAB PO SCH ×2 (08:19→11:51)
[2017-06-16 08:38] LABS: BICARBONATE 28.3 MEQ/L (21.0-32.0); CALCIUM 9.2 MG/DL (8.5-10.1); CREATININE 0.92 MG/DL (0.60-1.30)
--- NOTE | 2017-06-16 10:34 | HHI.PR ---
Subjective Remarks Patient is a 61-year-old male with primary medical history of HTN, HIV, bipolar , schizoaffective disorder who came into the hospital under [place] for psychiatric evaluation. Per review of records [place] report patient has absent temporal lobe syndrome, bipolar disorder, schizophrenia who has been having weight loss and poor hygiene sleeping in the park and restrooms. Patient has been combative to his caregiver. He is now admitted to inpatient psychiatry unit for further evaluation. Consulted for medical management. Patient seen and examined today. As per nursing, patient has been having uncontrolled high blood pressure. Patient has not been taking his HIV and BP medications. Patient states that he is doing okay. 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 States that he's been doing well and has been eating okay. Mentions "I love to eat, I love food." Denies weight loss. Denies pain and discomfort. Denies SOB/ dyspnea. Denies chest pain, palpitations, headaches, dizziness. Denies fevers, chills, n/v/d. Denies dysuria. 06-13 NO CURRENT COMPLAINTS DW RN AND PT ORIENTED TO PERSON, PLACE, TIME, SITUATION 06-14 no new complaints DW RN AND PATIENT 12-1 Hypertensive overnight to 195/110 Denies visual changes and GRIMALDO No complaints this am 12-2 Remains hypertensive No complaints this am Objective Vitals Vital Signs Date Time Temp Pulse Resp B/P (MAP) Pulse Ox O2 Delivery O2 Flow Rate FiO2 06/16/17 06:02 97.4 89 17 172/105 (127) 98 06/16/17 01:45 158/100 (119) 06/16/17 00:15 178/112 (134) 06/15/17 23:00 85 190/120 (143) 06/15/17 20:45 182/110 (134) 06/15/17 18:15 90 174/96 (122) 06/15/17 18:00 98.6 91 18 170/120 (137) 97 06/15/17 15:26 160/110 (127) 06/15/17 12:12 82 164/100 (121) 06/15/17 10:51 178/118 (138) I/O 06/15/17 06/15/17 06/15/17 06/16/17 06/16/17 06/16/17 07:00 15:00 23:00 07:00 15:00 23:00 Intake Total 0 ml 480 ml 2520 ml 240 ml 360 ml Balance 0 ml 480 ml 2520 ml 240 ml 360 ml Intake Oral 0 ml 480 ml 2520 ml 240 ml 360 ml # Voids 4 4 5 Result Diagram: 06/16/1770406/16/17704 Objective Remarks GENERAL: Awake alert and oriented answering talkative cooperative SKIN: Warm and dry. HEAD: Atraumatic. Normocephalic. EYES: Pupils equal and round. No scleral icterus. No injection or drainage. Extraocular muscles intact ENT: No nasal bleeding or discharge. Mucous membranes pink and moist. Tongue is midline NECK: Trachea midline. No JVD. Supple CARDIOVASCULAR: Regular rate and rhythm. S1-S2 no S3 or S4 RESPIRATORY: No accessory muscle use. Clear to auscultation. Breath sounds equal bilaterally. GASTROINTESTINAL: Abdomen soft, non-tender, nondistended. Hepatic and splenic margins not palpable. MUSCULOSKELETAL: Extremities without clubbing, cyanosis, or edema. No obvious deformities. NEUROLOGICAL: Awake and alert. No obvious cranial nerve deficits. Motor grossly within normal limits. Normal speech. PSYCHIATRIC: INAppropriate mood and affect; insight and judgment ABnormal. Procedures NONE A/P Problem List: (1) Hypertension ICD Code: I10 - Essential (primary) hypertension Status: Acute (2) HIV (human immunodeficiency virus infection) ICD Code: Z21 - Asymptomatic human immunodeficiency virus [HIV] infection status Status: Acute Assessment and Plan Patient is a 61-year-old male with primary medical history of HTN, HIV, bipolar , schizoaffective disorder who came into the hospital under [place] for psychiatric evaluation. Per review of records [place] report patient has absent temporal lobe syndrome, bipolar disorder, schizophrenia who has been having weight loss and poor hygiene sleeping in the park and restrooms. Patient has been combative to his caregiver. He is now admitted to inpatient psychiatry unit for further evaluation. Consulted for medical management. BiPolar disorder, schizophrenia - Managed by psychiatry team HTN, uncontrolled. Patient remains hypertensive despite restarting of home BP meds and prn Clonidine. BP 195/110 overnight. - Noncompliance behavior. As per review of records has not been taking any of his medications, left his brother's home and lives in restrooms and [place]. - Continue Metoprolol 100 mg daily, continue lisinopril 10 mg qd - Start Nifedipine - Continue prn Clonidine to 0.2 mg - Urine catecholamines, metanephrines and vanilylmandelic acid pending - Monitor BP trend Noncompliance, HIV Hep C, history - Continue acyclovir 800 mg daily, Odefsey 1 tab daily - Counseled for compliance Needs to take his medications U tox positive for marijuana use. Labs have been reviewed, supplement potassium. DVT prop ambulatory WILL FOLLOW BLOOD PRESSURES Discharge Planning Pending BP control Problem Qualifiers (1) Hypertension: Qualified Codes: I10 - Essential (primary) hypertension Sara Burnette MD Jun 16, 2017 10:33
[2017-06-16] MEDS ORDERED: POTASSIUM CHLORIDE 20 MEQ CONTROLLED RELEASE TAB PO ONE (11:30)
--- NOTE | 2017-06-16 17:14 | HHI.PYPN ---
Subjective Remarks Pt seen and discussed with staff. 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 He is religiously preoccupied and told RN that our souls are dipped in chocolate. He appears to be responding to internal stimuli and gets agitated and makes paranoid statements. He has been compliant and cooperative. No aggression. Mental Status Examination Appearance: Appropriate Consciousness: Alert Orientation: Person, Place Motor Activity: Normal gait Speech: Unremarkable Language: Perseveration Fund of Knowledge: Adequate, Inadequate Attention and Concentration: Inadequate Memory: Impaired Mood: Other ("fine") Affect: Blunt Thought Process & Associations: Loose associations, Disorganized, Tangential Thought Content: Bizarre thinking, Delusional Hallucination Type: None Delusion Type: Bizarre, Paranoid, Other (tenriism) Suicidal Ideation: No Suicidal Plan: No Suicidal Intention: No Homicidal Ideation: No Homicidal Plan: No Homicidal Intention: No Insight: Poor Judgment: Poor Results Labs Test 06/16/17 07:05 White Blood Count 10.3 TH/MM3 Red Blood Count 5.23 MIL/MM3 Hemoglobin 15.9 GM/DL Hematocrit 47.8 % Mean Corpuscular Volume 91.5 FL Mean Corpuscular Hemoglobin 30.4 PG Mean Corpuscular Hemoglobin Concent 33.3 % Red Cell Distribution Width 12.9 % Platelet Count 290 TH/MM3 Mean Platelet Volume 8.7 FL Neutrophils (%) (Auto) 73.7 % Lymphocytes (%) (Auto) 14.0 % Monocytes (%) (Auto) 8.3 % Eosinophils (%) (Auto) 3.4 % Basophils (%) (Auto) 0.6 % Neutrophils # (Auto) 7.6 TH/MM3 Lymphocytes # (Auto) 1.4 TH/MM3 Monocytes # (Auto) 0.9 TH/MM3 Eosinophils # (Auto) 0.4 TH/MM3 Basophils # (Auto) 0.1 TH/MM3 CBC Comment DIFF FINAL Differential Comment Blood Urea Nitrogen 17 MG/DL Creatinine 0.92 MG/DL Random Glucose 94 MG/DL Calcium Level 9.2 MG/DL Sodium Level 135 MEQ/L Potassium Level 3.4 MEQ/L Chloride Level 101 MEQ/L Carbon Dioxide Level 28.3 MEQ/L Anion Gap 6 MEQ/L Estimat Glomerular Filtration Rate 84 ML/MIN Vitals/IOs Vital Signs Date Time Temp Pulse Resp B/P (MAP) Pulse Ox O2 Delivery O2 Flow Rate FiO2 06/16/17 15:45 94 179/108 (131) 06/16/17 06:02 97.4 17 98 06/12/17 19:33 Room Air Intake and Output 06/16/17 06/16/17 06/17/17 08:00 16:00 00:00 Intake Total 240 ml 600 ml 240 ml Balance 240 ml 600 ml 240 ml Assessment & Plan Problem List: (1) Brief psychotic disorder ICD Codes: F23 - Brief psychotic disorder Assessment & Plan Continue current tx plan. Estimated LOS: days Justification for Cont. Inpt. psychosis Radha Meyers MD Jun 16, 2017 17:14
[2017-06-16] MEDS: QUEtiapine FUMARATE 300 MG TAB PO SCH (21:15)
[2017-06-16] MEDS: ACETAMINOPHEN 325 MG TAB PO PRN (22:19)
[2017-06-16] MEDS ORDERED: ENALAPRILAT 2.5 MG/2 ML VIAL IV PUSH ONE (23:45)
[2017-06-17 01:06] VITALS: BP 160/110
[2017-06-17 02:17] VITALS: BP 162/102
[2017-06-17] MEDS: cloNIDine HCL 0.1 MG TAB PO PRN ×2 (05:21→11:30)
[2017-06-17 05:53] VITALS: BP 180/110
[2017-06-17] MEDS: KETOCONAZOLE 2% CREAM 15 GM TOPICAL SCH ×2 (07:04→20:38)
[2017-06-17] MEDS: NIFEdipine 60 MG SUSTAINED RELEASE TAB PO SCH (08:10)
[2017-06-17] MEDS: LISINOPRIL 10 MG TAB PO SCH (08:10)
[2017-06-17] MEDS: hydrALAZINE HCL 10 MG TAB PO SCH ×2 (08:10→16:57)
[2017-06-17] MEDS: ACYCLOVIR 800 MG TAB PO SCH (08:10)
[2017-06-17] MEDS: QUEtiapine FUMARATE 25 MG TAB PO SCH ×2 (08:10→11:31)
[2017-06-17] MEDS: METOPROLOL SUCCINATE 50 MG EXTENDED RELEASE TAB PO SCH (08:10)
--- NOTE | 2017-06-17 09:23 | HHI.PR ---
Subjective Remarks No acute events at this time. Afebrile, remains hypertensive despite increase in blood pressure medications. Patient denies headache or blurry vision. Has no complaints at this time. Objective Vitals Vital Signs Date Time Temp Pulse Resp B/P (MAP) Pulse Ox O2 Delivery O2 Flow Rate FiO2 06/17/17 05:53 180/110 (133) 06/17/17 02:17 162/102 (122) 06/17/17 01:06 160/110 (127) 06/16/17 23:00 180/110 (133) 06/16/17 21:10 180/105 (130) 06/16/17 18:00 97.5 92 18 180/103 (128) 97 152/91 (111) 06/16/17 15:45 94 179/108 (131) 06/16/17 13:00 97 190/114 (139) I/O 06/16/17 06/16/17 06/16/17 06/17/17 06/17/17 06/17/17 07:00 15:00 23:00 07:00 15:00 23:00 Intake Total 240 ml 600 ml 1320 ml 240 ml Balance 240 ml 600 ml 1320 ml 240 ml Intake Oral 240 ml 600 ml 1320 ml 240 ml # Voids 5 5 4 Result Diagram: 06/16/1770406/16/17704 Objective Remarks GENERAL: Awake alert and oriented answering talkative cooperative SKIN: Warm and dry. HEAD: Atraumatic. Normocephalic. EYES: Pupils equal and round. No scleral icterus. No injection or drainage. Extraocular muscles intact ENT: No nasal bleeding or discharge. Mucous membranes pink and moist. Tongue is midline NECK: Trachea midline. No JVD. Supple CARDIOVASCULAR: Regular rate and rhythm. S1-S2 no S3 or S4 RESPIRATORY: No accessory muscle use. Clear to auscultation. Breath sounds equal bilaterally. GASTROINTESTINAL: Abdomen soft, non-tender, nondistended. Hepatic and splenic margins not palpable. MUSCULOSKELETAL: Extremities without clubbing, cyanosis, or edema. No obvious deformities. NEUROLOGICAL: Awake and alert. No obvious cranial nerve deficits. Motor grossly within normal limits. Normal speech. PSYCHIATRIC: INAppropriate mood and affect; insight and judgment ABnormal. Procedures NONE A/P Problem List: (1) Hypertension ICD Code: I10 - Essential (primary) hypertension Status: Acute (2) HIV (human immunodeficiency virus infection) ICD Code: Z21 - Asymptomatic human immunodeficiency virus [HIV] infection status Status: Acute Assessment and Plan Patient is a 61-year-old male with primary medical history of HTN, HIV, bipolar , schizoaffective disorder who came into the hospital under [place] for psychiatric evaluation. Per review of records [place] report patient has absent temporal lobe syndrome, bipolar disorder, schizophrenia who has been having weight loss and poor hygiene sleeping in the park and restrooms. Patient has been combative to his caregiver. He is now admitted to inpatient psychiatry unit for further evaluation. Consulted for medical management. BiPolar disorder, schizophrenia - Managed by psychiatry team HTN, uncontrolled. Patient remains hypertensive despite restarting of home BP meds and prn Clonidine. BP 195/110 overnight. - Noncompliance behavior. As per review of records has not been taking any of his medications, left his brother's home and lives in restrooms and [place]. - Continue Metoprolol 100 mg daily, continue lisinopril 10 mg qd - Continue Nifedipine - Add Hydralazine PO - Continue prn Clonidine to 0.2 mg - Urine catecholamines, metanephrines and vanilylmandelic acid pending - Monitor BP trend Noncompliance, HIV Hep C, history - Continue acyclovir 800 mg daily, Odefsey 1 tab daily - Counseled for compliance Needs to take his medications U tox positive for marijuana use. Labs have been reviewed, supplement potassium. DVT prop ambulatory WILL FOLLOW BLOOD PRESSURES Discharge Planning Pending BP control Problem Qualifiers (1) Hypertension: Qualified Codes: I10 - Essential (primary) hypertension Sara Burnette MD Jun 17, 2017 09:23
[2017-06-17 10:59] VITALS: BP 170/86
[2017-06-17 15:06] VITALS: BP 152/92
[2017-06-17] MEDS: ACETAMINOPHEN 325 MG TAB PO PRN (16:00)
[2017-06-17 17:14] VITALS: BP 140/88; PULSE 94; RESP 18; TEMP 97.5; O2SAT 98
--- NOTE | 2017-06-17 18:29 | HHI.PYPN ---
Subjective Remarks Pt seen and discussed with staff. He has been compliant with medications and denies side effects. He states that he is doing well. He continues to experience AH and cheondoism delusions but is less agitated today. No SI/HI. Mental Status Examination Appearance: Appropriate Consciousness: Alert Orientation: Person, Place Motor Activity: Normal gait Speech: Unremarkable Language: Neologism Fund of Knowledge: Adequate Attention and Concentration: Inadequate Memory: Impaired Mood: Other ("fine") Affect: Blunt Thought Process & Associations: Loose associations, Disorganized, Tangential Thought Content: Bizarre thinking, Delusional Hallucination Type: None Delusion Type: Bizarre, Paranoid, Other (cheondoism) Suicidal Ideation: No Suicidal Plan: No Suicidal Intention: No Homicidal Ideation: No Homicidal Plan: No Homicidal Intention: No Insight: Poor Judgment: Poor Results Labs Test 06/17/17 10:15 Vitals/IOs Vital Signs Date Time Temp Pulse Resp B/P (MAP) Pulse Ox O2 Delivery O2 Flow Rate FiO2 06/17/17 17:14 97.5 94 18 140/88 (105) 98 Intake and Output 06/17/17 06/17/17 06/18/17 08:00 16:00 00:00 Intake Total 240 ml 600 ml 600 ml Balance 240 ml 600 ml 600 ml Assessment & Plan Problem List: (1) Brief psychotic disorder ICD Codes: F23 - Brief psychotic disorder Assessment & Plan Pt improving. Continue current tx plan. Estimated LOS: days Justification for Cont. Inpt. impairments in reality testing Radha Meyers MD Jun 17, 2017 18:29
[2017-06-17] MEDS: QUEtiapine FUMARATE 300 MG TAB PO SCH (20:38)
[2017-06-18] MEDS: hydrALAZINE HCL 10 MG TAB PO SCH ×3 (00:14→16:43)
[2017-06-18 06:03] VITALS: BP 180/100; PULSE 82; RESP 18; TEMP 98.2; O2SAT 99
[2017-06-18] MEDS: KETOCONAZOLE 2% CREAM 15 GM TOPICAL SCH ×2 (07:19→20:36)
[2017-06-18] MEDS: LISINOPRIL 10 MG TAB PO SCH (09:00)
[2017-06-18] MEDS: METOPROLOL SUCCINATE 50 MG EXTENDED RELEASE TAB PO SCH (09:00)
[2017-06-18] MEDS: NIFEdipine 60 MG SUSTAINED RELEASE TAB PO SCH (09:00)
[2017-06-18] MEDS: QUEtiapine FUMARATE 25 MG TAB PO SCH (09:00)
[2017-06-18] MEDS: ACYCLOVIR 800 MG TAB PO SCH (09:00)
--- NOTE | 2017-06-18 09:27 | HHI.PR ---
Subjective Remarks No acute events overnight. Afebrile, vital signs stable. Patient with no complaints this morning. Reports he had a headache yesterday afternoon, relieved with Tylenol. Objective Vitals Vital Signs Date Time Temp Pulse Resp B/P (MAP) Pulse Ox O2 Delivery O2 Flow Rate FiO2 06/18/17 06:03 98.2 82 18 180/100 (126) 99 06/17/17 17:14 97.5 94 18 140/88 (105) 98 06/17/17 15:06 152/92 (112) 06/17/17 10:59 170/86 (114) I/O 06/17/17 06/17/17 06/17/17 06/18/17 06/18/17 06/18/17 07:00 15:00 23:00 07:00 15:00 23:00 Intake Total 240 ml 600 ml 600 ml 0 ml 240 ml Output Total 1500 ml Balance 240 ml 600 ml 600 ml -1500 ml 240 ml Intake Oral 240 ml 600 ml 600 ml 0 ml 240 ml Output Urine Total 1500 ml # Voids 4 Result Diagram: 06/16/1770406/16/17704 Objective Remarks GENERAL: Awake alert and oriented answering talkative cooperative SKIN: Warm and dry. HEAD: Atraumatic. Normocephalic. EYES: Pupils equal and round. No scleral icterus. No injection or drainage. Extraocular muscles intact ENT: No nasal bleeding or discharge. Mucous membranes pink and moist. Tongue is midline NECK: Trachea midline. No JVD. Supple CARDIOVASCULAR: Regular rate and rhythm. S1-S2 no S3 or S4 RESPIRATORY: No accessory muscle use. Clear to auscultation. Breath sounds equal bilaterally. GASTROINTESTINAL: Abdomen soft, non-tender, nondistended. Hepatic and splenic margins not palpable. MUSCULOSKELETAL: Extremities without clubbing, cyanosis, or edema. No obvious deformities. NEUROLOGICAL: Awake and alert. No obvious cranial nerve deficits. Motor grossly within normal limits. Normal speech. PSYCHIATRIC: INAppropriate mood and affect; insight and judgment ABnormal. Procedures NONE A/P Problem List: (1) Hypertension ICD Code: I10 - Essential (primary) hypertension Status: Acute (2) HIV (human immunodeficiency virus infection) ICD Code: Z21 - Asymptomatic human immunodeficiency virus [HIV] infection status Status: Acute Assessment and Plan Patient is a 61-year-old male with primary medical history of HTN, HIV, bipolar , schizoaffective disorder who came into the hospital under [employer] act for psychiatric evaluation. Per review of records [place] report patient has absent temporal lobe syndrome, bipolar disorder, schizophrenia who has been having weight loss and poor hygiene sleeping in the park and restrooms. Patient has been combative to his caregiver. He is now admitted to inpatient psychiatry unit for further evaluation. Consulted for medical management. BiPolar disorder, schizophrenia - Managed by psychiatry team HTN, uncontrolled. Patient remains hypertensive despite restarting of home BP meds and prn Clonidine. BP improved yesterday to 140/88. - Noncompliance behavior. As per review of records has not been taking any of his medications, left his brother's home and lives in restrooms and [place]. - Continue Metoprolol 100 mg daily, continue lisinopril 10 mg qd - Continue Nifedipine - Continue Hydralazine - Continue prn Clonidine 0.2 mg - Urine catecholamines, metanephrines and vanilylmandelic acid pending - Monitor BP trend, improving Noncompliance, HIV Hep C, history - Continue acyclovir 800 mg daily, Odefsey 1 tab daily - Counseled for compliance Needs to take his medications U tox positive for marijuana use. Labs have been reviewed, supplement potassium. DVT prop ambulatory WILL FOLLOW BLOOD PRESSURES Discharge Planning Pending BP control Problem Qualifiers (1) Hypertension: Qualified Codes: I10 - Essential (primary) hypertension Sara Burnette MD Jun 18, 2017 09:27
--- NOTE | 2017-06-18 11:52 | HHI.PYPN ---
Subjective Remarks Patient seen for follow-up, chart reviewed. Discussion nursing staff reported the patient continues to have uatsdin preoccupation, at times noted to be talking to self but denies any auditory hallucinations. Patient found sitting in day room watching television and was able to participate in interview with typewriter operator automatic and nurse today. Patient states that he is sleeping well feeling excellent, Toprol with appetite. Patient continues was uatsdin preoccupation stating that he was told by God that he has admission before he was born and that while he was living in the parking that a lot of paperwork for [employer] but did not state what it is. Patient states that he did not want to see what kind of work he had been doing but states that I will find out. 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 He states that she is will provide, Logan will help me, and that "work odd to juice". His and agrees to be discharged to an assisted living facility if possible but did not want return back to his brother. She denies any SI, HI, perceptual disturbances but continues with uatsdin delusions. Review of Systems Except as stated in HPI: all other systems reviewed are Neg Mental Status Examination Appearance: Appropriate Consciousness: Alert Orientation: Person, Place Motor Activity: Normal gait Speech: Unremarkable Language: Neologism Fund of Knowledge: Adequate Attention and Concentration: Inadequate Memory: Impaired Mood: Other ("excellent") Affect: Blunt Thought Process & Associations: Loose associations, Tangential Thought Content: Bizarre thinking, Delusional Hallucination Type: None Delusion Type: Bizarre, Paranoid, Other (uatsdin) Suicidal Ideation: No Suicidal Plan: No Suicidal Intention: No Homicidal Ideation: No Homicidal Plan: No Homicidal Intention: No Insight: Poor Judgment: Poor Results Vitals/IOs Vital Signs Date Time Temp Pulse Resp B/P (MAP) Pulse Ox O2 Delivery O2 Flow Rate FiO2 06/18/17 06:03 98.2 82 18 180/100 (126) 99 Intake and Output 06/18/17 06/18/17 06/19/17 08:00 16:00 00:00 Intake Total 240 ml Output Total 1500 ml Balance -1260 ml Assessment & Plan Problem List: (1) Brief psychotic disorder ICD Codes: F23 - Brief psychotic disorder Assessment & Plan Patient at this time continue uatsdin preoccupation and delusions, denies any auditory hallucinations but at times noted to be talking to self. He denies any command or auditory communications but believes that he is on a mission by God. As patient has history of TBI patient name have uatsdin preoccupations and delusions are fixed although they are not delusions with put him at risk for self-harm or harm to others but comes in to question whether he is able to make appropriate decisions. Patient agrees to be referred to an assisted living facility which treatment he will explore at this time as he refuses return back to his brother. We'll obtain collateral information from brother. Increase quetiapine 100/100/600mg PO for psychosis. Continue recommendations as per primary medical team. Patient continues uncontrolled hypertension but is managed at this time by medical team. Discharge planning in progress Justification for Cont. Inpt. At risk for further decompensation if at lower level of care Discharge Planning And discharged possibly to an assisted living facility Jhoan Tabares MD Jun 18, 2017 11:52
[2017-06-18] MEDS: QUEtiapine FUMARATE 100 MG TAB PO SCH (12:00)
[2017-06-18 12:25] VITALS: BP 166/84
[2017-06-18] MEDS: cloNIDine HCL 0.1 MG TAB PO PRN (12:35)
[2017-06-18 18:00] VITALS: BP 150/92; PULSE 96; RESP 18; TEMP 97.4; O2SAT 98
[2017-06-18] MEDS: QUEtiapine FUMARATE 300 MG TAB PO SCH (20:33)
[2017-06-19 00:45] VITALS: BP 170/102; PULSE 88; RESP 18
[2017-06-19] MEDS: cloNIDine HCL 0.1 MG TAB PO PRN ×2 (01:03→17:46)
[2017-06-19] MEDS: hydrALAZINE HCL 10 MG TAB PO SCH ×2 (01:03→08:16)
[2017-06-19] MEDS: ACETAMINOPHEN 325 MG TAB PO PRN ×2 (01:04→20:17)
[2017-06-19 05:15] VITALS: BP 168/110; PULSE 72; RESP 16
[2017-06-19] MEDS ORDERED: cloNIDine HCL 0.1 MG TAB PO ONE (05:30)
[2017-06-19 05:58] VITALS: BP 168/110; PULSE 72; RESP 19
[2017-06-19] MEDS: LISINOPRIL 10 MG TAB PO SCH (08:16)
[2017-06-19] MEDS: NIFEdipine 60 MG SUSTAINED RELEASE TAB PO SCH (08:16)
[2017-06-19] MEDS: ACYCLOVIR 800 MG TAB PO SCH (08:16)
[2017-06-19] MEDS: QUEtiapine FUMARATE 100 MG TAB PO SCH ×2 (08:16→11:15)
[2017-06-19] MEDS: KETOCONAZOLE 2% CREAM 15 GM TOPICAL SCH ×2 (08:17→20:17)
[2017-06-19] MEDS: METOPROLOL SUCCINATE 50 MG EXTENDED RELEASE TAB PO SCH (08:17)
--- NOTE | 2017-06-19 08:42 | HHI.PYPN ---
Subjective Remarks Patient seen for follow-up, chart reviewed. Discussion she staff reported the patient's blood pressure continues to be elevated and medical team's continue to follow. Nephrology has been consulted and is pending. Patient has a calm and cooperative with staff and met compliant. Patient found sitting in hospital bed, cooperative. Patient states that he met with his brother yesterday but is not willing to return back to live with him. He mentions having told his brother that he would pay for everything referring to the trailer in the park when asked how he would manage to do that economically he states "Logan will provide". Patient continues to have amish preoccupations mentioning that our souls are made from "constant use". Patient also states that he continues to be willing to go to an assisted living facility. Patient this time denies any SI, HI, AVH but continues with amish preoccupation and delusions. Has been eating and drinking well. Review of Systems Except as stated in HPI: all other systems reviewed are Neg Mental Status Examination Appearance: Appropriate Consciousness: Alert Orientation: Person, Place Motor Activity: Normal gait Speech: Unremarkable Language: Neologism Fund of Knowledge: Adequate Attention and Concentration: Inadequate Memory: Impaired Mood: Appropriate, Other Affect: Blunt Thought Process & Associations: Loose associations, Tangential Thought Content: Bizarre thinking, Delusional Hallucination Type: None Delusion Type: Bizarre, Paranoid, Other (amish) Suicidal Ideation: No Suicidal Plan: No Suicidal Intention: No Homicidal Ideation: No Homicidal Plan: No Homicidal Intention: No Insight: Poor Judgment: Poor Results Vitals/IOs Vital Signs Date Time Temp Pulse Resp B/P (MAP) Pulse Ox O2 Delivery O2 Flow Rate FiO2 06/19/17 05:58 72 19 168/110 (129) 06/18/17 18:00 97.4 98 Intake and Output 06/19/17 06/19/17 06/20/17 08:00 16:00 00:00 Intake Total 1100 ml Output Total 1050 ml Balance 50 ml Assessment & Plan Problem List: (1) Brief psychotic disorder ICD Codes: F23 - Brief psychotic disorder Assessment & Plan Patient this time continues with amish preoccupation and unrealistic expectations due to the same but denies any perceptual disturbances. Patient continues to report comedic anywhere, but does not hear any auditory hallucinations are simply his belief that, will direct him. Patient currently on maximum dose of quetiapine and delusions continued to persist with no change. It is possible the patient has fixed amish delusions and has not mentioned any association with ideas or plan that would endanger his well-being provided that he has a place to live in an meals provided. Patient's brother visited yesterday and will try to obtain collateral from rehabilitation from brother to obtain his assessment of how patient is doing. Patient to continue recommendations as per primary medical team due to uncontrolled hypertension. Discharge planning in progress Justification for Cont. Inpt. At risk for further decompensation if at lower level of care Discharge Planning Possible discharged to an assisted living facility if one is acquired Jhoan Tabares MD Jun 19, 2017 08:42
--- NOTE | 2017-06-19 09:29 | PD.TTN ---
Patient Problems 1. Discharge planning 2. Medication compliance 3. Knowledge deficit 4. Lack of coping skills Progress Toward Goals Provider Present: Dr. Binu Tabares Provider Input: Patient is new to unit and will be starting on a medication regiment. Will monitor progress of patient throughout the week. 06/18/2017 - Dr. Tabares reports the patient would like placement in an [facility]. Psychiatric Counselors Present: DANITZA Hitchcock, DANITZA Velarde Psych Therapist Input: Counselor will be in contact with family memebers to recieve collateral information in regards to patient's progress. 06-18-2017 - Counselor has faxed patient's packet to [facility] for admissions review. Counselor called [facility] and there are no beds available at this time. Group Spec/RT/OT/SCHMIDT Present: DEE Bazzi, BRAYAN Restrepo, BRAYAN Silva Group Spec/RT/OT/SCHMIDT Input: Patient is new to unit and has not attend groups yet. 06-18-2017 - Patient attends select groups and his behavior is appropriate. Documentation Scribe: DANITZA Hitchcock Date Resolved: Jun 18, 2017 Simin Trejo Jun 19, 2017 09:29
--- NOTE | 2017-06-19 11:27 | HHI.PR ---
Subjective Remarks The patient had just taken a shower. He did not have any acute complaints. He was wondering about housing after being released from the hospital. He has been ambulating well. He denies any shortness of breath. Objective Vitals Vital Signs Date Time Temp Pulse Resp B/P (MAP) Pulse Ox O2 Delivery O2 Flow Rate FiO2 06/19/17 05:58 72 19 168/110 (129) 06/19/17 05:15 72 16 168/110 (129) 06/19/17 00:45 88 18 170/102 (124) 06/18/17 18:00 97.4 96 18 150/92 (111) 98 06/18/17 12:25 166/84 (111) I/O 06/18/17 06/18/17 06/18/17 06/19/17 06/19/17 06/19/17 07:00 15:00 23:00 07:00 15:00 23:00 Intake Total 0 ml 600 ml 480 ml 1100 ml 480 ml Output Total 1500 ml 1050 ml Balance -1500 ml 600 ml 480 ml 50 ml 480 ml Intake Oral 0 ml 600 ml 480 ml 1100 ml 480 ml Output Urine Total 1500 ml 1050 ml # Voids 1 Result Diagram: 06/16/1770406/16/17704 Objective Remarks GENERAL: Resting comfortably. SKIN: Warm and dry. HEAD: Atraumatic. Normocephalic. EYES: Pupils equal and round. No scleral icterus. No injection or drainage. Extraocular muscles intact ENT: No nasal bleeding or discharge. Mucous membranes pink and moist. Tongue is midline NECK: Trachea midline. No JVD. Supple CARDIOVASCULAR: Regular rate and rhythm. S1-S2 no S3 or S4 RESPIRATORY: No accessory muscle use. Clear to auscultation. Breath sounds equal bilaterally. GASTROINTESTINAL: Abdomen soft, non-tender, nondistended. Hepatic and splenic margins not palpable. MUSCULOSKELETAL: Extremities without clubbing, cyanosis, or edema. No obvious deformities. NEUROLOGICAL: Awake and alert. No obvious cranial nerve deficits. Motor grossly within normal limits. Normal speech. PSYCHIATRIC: Calm. Procedures NONE Medications and IVs Current Medications Medications (Trade) Dose Ordered Sig/Zina Route Start Time Stop Time Status Last Admin (Ativan) 1 mg Q6H PRN PO 06/12/17 15:45 06/15/17 21:48 (Ativan Inj) 1 mg Q6H PRN IM 06/12/17 15:45 (Tylenol) 650 mg Q4H PRN PO 06/12/17 15:45 06/19/17 01:04 (Milk Of Magnesia Liq) 30 ml DAILY PRN PO 06/12/17 15:45 (Mag-Al Plus Susp Liq) 30 ml Q6H PRN PO 06/12/17 15:45 (Zovirax) 800 mg DAILY PO 06/12/17 16:00 06/19/17 08:16 (Nizoral 2% Cream) 1 applic BID TOPICAL 06/12/17 21:00 06/19/17 08:17 (SEROquel) 600 mg HS PO 06/12/17 21:00 06/18/17 20:33 (Pill Splitter) 1 ea UNSCH PRN OTHER 06/12/17 16:30 Patient Own Medication PT OWN MED: ODEFSEY... DAILY PO 06/13/17 09:00 Future Hold Patient Own Medication PT OWN MED: CALCIUM CARBONA... BID PO 06/12/17 21:00 Future Hold (Prinivil) 10 mg DAILY PO 06/15/17 09:00 06/19/17 08:16 (Catapres) 0.2 mg Q6H PRN PO 06/15/17 12:30 06/19/17 01:03 (Toprol Xl) 100 mg DAILY PO 06/16/17 09:00 06/19/17 08:17 (Procardia Xl) 60 mg DAILY PO 06/16/17 09:00 06/19/17 08:16 (Apresoline) 10 mg Q8H PO 06/17/17 09:00 06/19/17 08:16 (SEROquel) 100 mg BID@09,12 PO 06/18/17 12:00 06/19/17 11:15 A/P Problem List: (1) Hypertension ICD Code: I10 - Essential (primary) hypertension Status: Acute (2) HIV (human immunodeficiency virus infection) ICD Code: Z21 - Asymptomatic human immunodeficiency virus [HIV] infection status Status: Acute Assessment and Plan Patient is a 61-year-old male with primary medical history of HTN, HIV, bipolar , schizoaffective disorder who came into the hospital under [place] act for psychiatric evaluation. Per review of records [place] act report patient has absent temporal lobe syndrome, bipolar disorder, schizophrenia who has been having weight loss and poor hygiene sleeping in the park and restrooms. Patient has been combative to his caregiver. He is now admitted to the inpatient psychiatry unit for further evaluation. Consulted for medical management. Bipolar disorder, schizophrenia - Managed by psychiatry team HTN, uncontrolled. Patient remains hypertensive despite restarting of home BP meds and prn Clonidine. - Continue Metoprolol 100 mg daily, increase lisinopril to 20 mg qd. Increase lisinopril as needed. - Continue Nifedipine - d/c Hydralazine. - Continue prn Clonidine 0.2 mg - Urine catecholamines, metanephrines and vanilylmandelic acid pending Noncompliance, HIV Hep C, history - Continue acyclovir 800 mg daily, Odefsey 1 tab daily - Counseled for compliance Needs to take his medications U tox positive for marijuana use. Labs have been reviewed, supplement potassium. Check potassium in morning. DVT prop ambulatory Discharge Planning Per primary Problem Qualifiers (1) Hypertension: Qualified Codes: I10 - Essential (primary) hypertension Simone Jones DO Jun 19, 2017 11:27
[2017-06-19] MEDS ORDERED: LISINOPRIL 10 MG TAB PO ONE (11:30)
--- NOTE | 2017-06-19 12:07 | PD.CONS ---
[facility] Service Nephrology Consult Requested By Dr. Solano Reason for Consult Hypertension Primary Care Physician Unknown History of Present Illness The patient is a 61 yo [place] male who presented to this facility on 06/13 as a [place] Act by his PCP. He is homeless but was previously living with his brother. He was thought to be a danger to himself by his PCP and called for [place] Act. He has been doing well in psych unit and is back on medications for his mental health. Has PMHx of Bipolar Disorder, Absent Temporal Lobe Syndrome , HIV, and HTN. Says he has had HTN for his whole life and has never been on anything that really helped. It should be noted that he is a questionable historian. It is likely that he has been noncompliant with his medications complicating his history. Home blood pressure medications listed as Toprol XL 50mg QD & Lisinopril 2.5mg QD. We have been consulted regarding uncontrolled hypertension. 06/13--started on Lisinopril 2.5mg QD & Toprol XL 50mg QD with Clonidine 0.1mg PRN 06/14--Lisinopril increased to 10mg 06/15--continue on Lisinopril 10mg QD, increase Toprol to 100mg and Clonidine to 0.2mg PRN 06/16--continue on previous regimen, added Procardia XL 60mg QD. Ordered 24h urine for catecholamines and metanephrines 06/17--continue on previous regimen, added Hydralazine 10mg q8h 06/18--no changes Review of Systems ROS Limitations: Poor Historian (overall, but speicifically denies any symptoms ) Past Family Social History Allergies: Coded Allergies: Sulfa (Sulfonamide Antibiotics) (Unverified Allergy, Severe, Hives, ) Past Medical History HTN Bipolar Disorder HIV HCV Absent Temporal Lobe Syndrome Cannibis use Homelessness Psychosis Past Surgical History Denies Reported Medications Toprol XL (Metoprolol Succinate) 50 Mg Tab 50 Mg PO DAILY Odefsey (Gcxhifnvtvmcw-Btqfrnixdel-Rvxcdtatu Alafenam) 200-200-25 Mg Tab 1 Tab PO DAILY Benztropine (Benztropine Mesylate) 0.5 Mg Tab 1 Mg PO BID Acyclovir 800 Mg Tab 800 Mg PO DAILY Lisinopril 2.5 Mg Tab 2.5 Mg PO DAILY Testosterone Cypionate Inj (Testosterone Cypionate) 200 Mg/Ml Inj 200 Mg IM Ketoconazole Topical 2% Cream 1 Applic TOPICAL BID Depakote ER (Divalproex Sodium) 500 Mg Drea 500 Mg PO HS Haloperidol 1 Mg Tab 1 Mg PO DAILY Seroquel (Quetiapine Fumarate) 300 Mg Tab 600 Mg PO HS Celexa (Citalopram Hydrobromide) 10 Mg Tab 5 Mg PO DAILY Risperdal (Risperidone) 2 Mg Tab 2 Mg PO Q12HR Caltrate 600+D Plus Minerals (Calcium Carbonate-Vitamin D W/Minerals) 600-800 Mg -Unit Tab 1 Tab PO BID Active Ordered Medications Current Medications Medications (Trade) Dose Ordered Sig/Zina Route Start Time Stop Time Status Last Admin (Ativan) 1 mg Q6H PRN PO 06/12/17 15:45 06/15/17 21:48 (Ativan Inj) 1 mg Q6H PRN IM 06/12/17 15:45 (Tylenol) 650 mg Q4H PRN PO 06/12/17 15:45 06/19/17 01:04 (Milk Of Magnesia Liq) 30 ml DAILY PRN PO 06/12/17 15:45 (Mag-Al Plus Susp Liq) 30 ml Q6H PRN PO 06/12/17 15:45 (Zovirax) 800 mg DAILY PO 06/12/17 16:00 06/19/17 08:16 (Nizoral 2% Cream) 1 applic BID TOPICAL 06/12/17 21:00 06/19/17 08:17 (SEROquel) 600 mg HS PO 06/12/17 21:00 06/18/17 20:33 (Pill Splitter) 1 ea UNSCH PRN OTHER 06/12/17 16:30 Patient Own Medication PT OWN MED: ODEFSEY... DAILY PO 06/13/17 09:00 Future Hold Patient Own Medication PT OWN MED: CALCIUM CARBONA... BID PO 06/12/17 21:00 Future Hold (Catapres) 0.2 mg Q6H PRN PO 06/15/17 12:30 06/19/17 01:03 (Toprol Xl) 100 mg DAILY PO 06/16/17 09:00 06/19/17 08:17 (Procardia Xl) 60 mg DAILY PO 06/16/17 09:00 06/19/17 08:16 (SEROquel) 100 mg BID@09,12 PO 06/18/17 12:00 06/19/17 11:15 (Prinivil) 20 mg DAILY PO 06/20/17 09:00 UNV (Prinivil) 10 mg ONCE ONCE PO 06/19/17 11:30 06/19/17 11:31 UNV Family History Denies Social History Homeless but previously lived with brother Denies any illicit drug use, however, UDS pos for cannabis Denies EtOH Denies tobacco use Physical Exam Vital Signs Vital Signs Date Time Temp Pulse Resp B/P (MAP) Pulse Ox O2 Delivery O2 Flow Rate FiO2 06/19/17 05:58 72 19 168/110 (129) 06/19/17 05:15 72 16 168/110 (129) 06/19/17 00:45 88 18 170/102 (124) 06/18/17 18:00 97.4 96 18 150/92 (111) 98 06/18/17 12:25 166/84 (111) Physical Exam GENERAL: Standing in room drawing when I entered. SKIN: Warm and dry. HEAD: Atraumatic. Normocephalic. EYES: Pupils equal and round. No scleral icterus. No injection or drainage. ENT: No nasal bleeding or discharge. Mucous membranes pink and moist. NECK: Trachea midline. No JVD. CARDIOVASCULAR: Regular rate and rhythm. RESPIRATORY: No accessory muscle use. Clear to auscultation. Breath sounds equal bilaterally. GASTROINTESTINAL: Abdomen soft, non-tender, nondistended. Hepatic and splenic margins not palpable. MUSCULOSKELETAL: Extremities without clubbing, cyanosis, or edema. No obvious deformities. NEUROLOGICAL: Awake and alert. Normal speech. PSYCHIATRIC: Appropriate mood and affect; insight and judgment normal. Result Diagram: 06/16/1770406/16/17704 Assessment and Plan Problem List: (1) Hypertension ICD Codes: I10 - Essential (primary) hypertension Status: Acute Plan: Pending 24h urine for metanephrines & catecholamines Check renin & aldosterone levels given his hypokalemia Will check renal US as well as doppler studies to rule out secondary cause of HTN. Consider CTA UA with microscopy with UPCR Primary increased Lisinopril today to 20mg QD. D/C'd Hydralazine Increase Procardia to 90mg QD Continue on Toprol Will continue to follow. (2) Brief psychotic disorder ICD Codes: F23 - Brief psychotic disorder Problem Qualifiers (1) Hypertension: Qualified Codes: I10 - Essential (primary) hypertension Amanda Ruiz Jun 19, 2017 12:07
[2017-06-19 17:48] VITALS: BP 185/110
[2017-06-19 18:00] VITALS: BP 179/70; PULSE 82; RESP 18; TEMP 98; O2SAT 100
[2017-06-19 18:58] VITALS: BP 170/100
[2017-06-19] MEDS: QUEtiapine FUMARATE 300 MG TAB PO SCH (20:16)
--- NOTE | 2017-06-19 23:04 | RADRPT ---
EXAM DATE/TIME: 06/19/2017 16:47 [facility] COMPARISON: No previous studies available for comparison. INDICATIONS : Evaluate for renal artery stenosis. Hypertension. MEDICAL HISTORY : Hypertension. Hepatitis C. HIV. SURGICAL HISTORY : Bone spur removed from ankle. ENCOUNTER: Initial ACUITY: 1 day PAIN SCORE: 0/10 LOCATION: Bilateral flank PEAK FLOW VELOCITIES (cm/sec): PROXIMAL: 84.8 MID: 88.4 DISTAL: 82.0 RIGHT RENAL ARTERY: PROXIMAL: 306.5 MID: 172.8 DISTAL: 41.3 RENAL ARTERY RATIO: 0.7 ARCUATE ARTERY RESISTIVE INDEX: Upper: 0.7 Mid: 0.6 Lower: 0.6 LEFT RENAL ARTERY: PROXIMAL: 210.1 MID: NOT VISUALIZED DISTAL: 174.6 RENAL ARTERY RATIO: 1.0 ARCUATE ARTERY RESISTIVE INDEX: Upper: 0.5 Mid: 0.5 Lower: 0.6 FINDINGS: Visualization is suboptimal due to overlying bowel gas. Kidneys appear normal in size and shape with increased echogenicity equal to that of the liver. There is no focal mass or hydronephrosis. Renal ar sundeep and vein mapping as listed above. CONCLUSION: 1. Elevated velocities in the proximal and mid right renal artery. 2. Nonvisualization of the left mid renal artery with elevated velocity in the distal portion of the renal artery. 3. Echogenic kidneys characteristic of medical renal disease. There is no hydronephrosis. Simone Wolf MD on June 19, 2017 at 23:00 Board Certified Radiologist. This report was verified electronically.
[2017-06-20 05:34] VITALS: BP 160/100
[2017-06-20] MEDS: cloNIDine HCL 0.1 MG TAB PO PRN ×2 (06:05→20:43)
[2017-06-20 06:24] VITALS: BP 160/100; PULSE 88; RESP 20; TEMP 97.5; O2SAT 99
[2017-06-20] MEDS: LISINOPRIL 20 MG TAB PO SCH (09:47)
[2017-06-20] MEDS: QUEtiapine FUMARATE 100 MG TAB PO SCH ×2 (09:47→12:32)
[2017-06-20] MEDS: KETOCONAZOLE 2% CREAM 15 GM TOPICAL SCH ×2 (09:48→21:00)
[2017-06-20] MEDS: ACYCLOVIR 800 MG TAB PO SCH (09:48)
[2017-06-20] MEDS: METOPROLOL SUCCINATE 50 MG EXTENDED RELEASE TAB PO SCH (09:48)
[2017-06-20] MEDS: NIFEdipine 90 MG SUSTAINED RELEASE TAB PO SCH (09:48)
[2017-06-20 10:26] LABS: BICARBONATE 30.5 MEQ/L (21.0-32.0); CALCIUM 9.1 MG/DL (8.5-10.1); CREATININE 0.83 MG/DL (0.60-1.30); MAGNESIUM 2.1 MG/DL (1.5-2.5)
--- NOTE | 2017-06-20 11:36 | PD.TTN ---
Patient Problems 1. Discharge planning 2. Medication compliance 3. Knowledge deficit 4. Lack of coping skills Progress Toward Goals Provider Present: Dr. Binu Tabares Provider Input: 06/20/2017; patient is at the highest dosage of medication and might need to have an additional med added to level off his mood/behavior. Patient is new to unit and will be starting on a medication regiment. Will monitor progress of patient throughout the week. 06/18/2017 - Dr. Tabares reports the patient would like placement in an [facility]. Nurse(s) Present: TONY Lara Nurse(s) Input: 06/20/2017; Patient is taking his medication, eating meals; however patient displays manic behavior, up doing the night hours with limited sleep. Psychiatric Counselors Present: DANITZA Velarde Psych Therapist Input: 06/20/2017 Counselor will begin the process for finding appropriate placement Counselor will be in contact with family memebers to recieve collateral information in regards to patient's progress. 06-18-2017 - Counselor has faxed [facility]'s packet to [facility] review. Counselor called [facility] and there are no beds available at this time. Group Spec/RT/OT/SCHMIDT Present: DEE Bazzi, BRAYAN Restrepo, BRAYAN Silva Group Spec/RT/OT/SCHMIDT Input: 06/20/2017: Attends most groups, very cooperate, very hyperverbal Patient is new to unit and has not attend groups yet. 06-18-2017 - Patient attends select groups and his behavior is appropriate. Documentation Scribe: GABRIEL Paez Date Resolved: Jun 20, 2017 Gisselle Shin HARMEET Jun 20, 2017 11:35
[2017-06-20 12:03] LABS: BILIRUBIN, URINE NEG (NEG); BLOOD, URINE NEG (NEG); GLUCOSE,URINE NEG (NEG); KETONE, URINE NEG (NEG); NITRITE,URINE NEG (NEG); URINE COLOR LIGHT-YELLOW (YELLW/STRAW); URINE LEUKOCYTE ESTERASE NEG (NEG)
--- NOTE | 2017-06-20 13:58 | HHI.PYPN ---
Subjective Remarks Patient seen for follow-up, chart reviewed. Discussion with nursing staff reported that the patient has been compliant with medications, continues with mandaeism delusions, continues wtih uncontrollled blood pressure and followed by nephrology, labs pending. Patient was found sitting in day room, watching television, cooperative with interview. Patient states that he does not want to return to live with brother. He continues to have loosening of associations during interview and relgiously preoccupied stating that he has a job set out for him by [employer] which entails getting rid of HIV. He states that after discharge he plans on living in a [facility] and will wait for Waldemar Oshea to pick him up. Currently denies SI, HI, AVH but continues with mandaeism delusions. Review of Systems Except as stated in HPI: all other systems reviewed are Neg Mental Status Examination Appearance: Appropriate Consciousness: Alert Orientation: Person, Place Motor Activity: Normal gait Speech: Unremarkable Language: Perseveration Fund of Knowledge: Adequate Attention and Concentration: Inadequate Memory: Impaired Mood: Appropriate Affect: Blunt Thought Process & Associations: Loose associations, Disorganized (at times), Tangential Thought Content: Bizarre thinking, Delusional Hallucination Type: None Delusion Type: Bizarre, Paranoid, Other (mandaeism) Suicidal Ideation: No Suicidal Plan: No Suicidal Intention: No Homicidal Ideation: No Homicidal Plan: No Homicidal Intention: No Insight: Poor Judgment: Poor Results Labs labs reviewed Test 06/19/17 15:34 06/20/17 08:20 06/20/17 11:23 Blood Urea Nitrogen 21 MG/DL Creatinine 0.83 MG/DL Random Glucose 83 MG/DL Calcium Level 9.1 MG/DL Magnesium Level 2.1 MG/DL Sodium Level 137 MEQ/L Potassium Level 4.4 MEQ/L Chloride Level 101 MEQ/L Carbon Dioxide Level 30.5 MEQ/L Anion Gap 6 MEQ/L Estimat Glomerular Filtration Rate 95 ML/MIN Urine Color LIGHT-YELLOW Urine Turbidity CLEAR Urine pH 6.0 Urine Specific [place] 1.009 Urine Protein NEG mg/dL Urine Glucose (UA) NEG mg/dL Urine Ketones NEG mg/dL Urine Occult Blood NEG Urine Nitrite NEG Urine Bilirubin NEG Urine Urobilinogen LESS THAN 2.0 MG/DL Urine Leukocyte Esterase NEG Urine RBC LESS THAN 1 /hpf Microscopic Urinalysis Comment CULT NOT INDICATED Urine Random Creatinine 39 MG/DL Urine Random Total Protein 12 MG/DL Urine Protein/Creatinine Ratio 0.31 Vitals/IOs Vital Signs Date Time Temp Pulse Resp B/P (MAP) Pulse Ox O2 Delivery O2 Flow Rate FiO2 06/20/17 06:24 97.5 88 20 160/100 (120) 99 Intake and Output 06/20/17 06/20/17 06/21/17 08:00 16:00 00:00 Intake Total 820 ml 240 ml Balance 820 ml 240 ml Assessment & Plan Problem List: (1) Brief psychotic disorder ICD Codes: F23 - Brief psychotic disorder Assessment & Plan Patient at this time continues to be very religiously preoccupied although has not reported delusions to involve thoughts of hurting self or others. Patient to continue current treatment. Followed by nephrology, labs pending. Continue to monitor mood and behavior. Collateral from PCP pending. Discharge planning in progress Justification for Cont. Inpt. At risk for further decompensation if at lower level of care Discharge Planning Patient is discharged to assisted living facility once one is acquired as patient cannot return back to live with her brother. Jhoan Tabares MD Jun 20, 2017 13:58
[2017-06-20 14:32] LABS: VMA 24 HR ADULT 6.2 mg/24 h (<8.0); VMA 24 HR COLLECT DURATION 24 h; VMA 24 HR URINE VOLUME 8900 mL
[2017-06-20 15:43] LABS: COLLECTION DURATION 24 h; URINE DOPAMINE 249 mcg/24 h (65-400); URINE EPINEPHRINE 16 mcg/24 h (<21); URINE NOREPINEPHRINE 98 mcg/24 h (15-80); URINE TOTAL VOLUME 8900 mL
--- NOTE | 2017-06-20 16:48 | HHI.NPPN ---
Subjective History of Present Illness he patient is a 61 yo [place] male who presented to this facility on 06/13 as a [facility] Act by his PCP. He is homeless but was previously living with his brother. He was thought to be a danger to himself by his PCP and called for [facility] Act. He has been doing well in psych unit and is back on medications for his mental health. Has PMHx of Bipolar Disorder, Absent Temporal Lobe Syndrome , HIV, and HTN. Says he has had HTN for his whole life and has never been on anything that really helped. It should be noted that he is a questionable historian. It is likely that he has been noncompliant with his medications complicating his history. Home blood pressure medications listed as Toprol XL 50mg QD & Lisinopril 2.5mg QD. We have been consulted regarding uncontrolled hypertension. Interval History Patient had no verbal complaints today. Objective Data Data 06/20/17 06/21/17 19:00 07:00 Intake Total 480 ml Balance 480 ml Intake Oral 480 ml Vital Signs Date Time Temp Pulse Resp B/P (MAP) Pulse Ox O2 Delivery O2 Flow Rate FiO2 06/20/17 06:24 97.5 88 20 160/100 (120) 99 06/20/17 05:34 160/100 (120) 06/19/17 18:58 170/100 (123) 06/19/17 18:00 98.0 82 18 179/70 (106) 100 06/19/17 17:48 185/110 (135) -: 06/16/17 0705 06/20/17 0820 Medication Review Current Medications Atenolol (Tenormin) 50 mg ONCE ONCE PO Last administered on 06/11/17 18:16; Start 06/11/17 at 18:15; Stop 06/11/17 at 18:16; Status DC Lisinopril (Prinivil) 2.5 mg ONCE ONCE PO Last administered on 06/11/17 18: 16; Start 06/11/17 at 18:15; Stop 06/11/17 at 18:16; Status DC Clonidine (Catapres) 0.1 mg ONCE ONCE PO Last administered on 06/11/17 19:00 ; Start 06/11/17 at 19:00; Stop 06/11/17 at 19:03; Status DC Amlodipine Besylate (Norvasc) 10 mg ONCE ONCE PO Last administered on 20:45; Start 06/11/17 at 20:45; Stop 06/11/17 at 20:46; Status DC Clonidine (Catapres) 0.1 mg ONCE ONCE PO Last administered on 06/11/17 22:15 ; Start 06/11/17 at 22:15; Stop 06/11/17 at 22:16; Status DC Atenolol (Tenormin) 50 mg ONCE ONCE PO Last administered on 06/12/17 08:11; Start 06/12/17 at 08:00; Stop 06/12/17 at 08:01; Status DC Lisinopril (Prinivil) 5 mg ONCE ONCE PO Last administered on 06/12/17 08:10 ; Start 06/12/17 at 08:00; Stop 06/12/17 at 08:01; Status DC Lisinopril (Prinivil) 5 mg ONCE ONCE PO Last administered on 06/12/17 11:04 ; Start 06/12/17 at 11:00; Stop 06/12/17 at 11:02; Status DC Clonidine (Catapres) 0.1 mg ONCE ONCE PO Last administered on 06/12/17 16:05 ; Start 06/12/17 at 15:45; Stop 06/12/17 at 15:47; Status DC Lorazepam (Ativan) 1 mg Q6H PRN PO MODERATE TO SEVERE ANXIETY Last administered on 06/15/17 21:48; Start 06/12/17 at 15:45 Lorazepam (Ativan Inj) 1 mg Q6H PRN IM MODERATE TO SEVERE ANXIETY; Start 06/12 at 15:45 Acetaminophen (Tylenol) 650 mg Q4H PRN PO Pain 1-5 or Temp >101F Last administered on 06/19/17 20:17; Start 06/12/17 at 15:45 Magnesium Hydroxide (Milk Of Magnesia Liq) 30 ml DAILY PRN PO CONSTIPATION; Start 06/12/17 at 15:45 Al Hydrox/Mg Hydrox/Simethicone (Mag-Al Plus Susp Liq) 30 ml Q6H PRN PO DYSPEPSIA; Start 06/12/17 at 15:45 Acyclovir (Zovirax) 800 mg DAILY PO Last administered on 06/20/17 09:48; Start 06/12/17 at 16:00 Ketoconazole (Nizoral 2% Cream) 1 applic BID TOPICAL Last administered on 09:48; Start 06/12/17 at 21:00 Metoprolol Succinate (Toprol Xl) 50 mg DAILY PO Last administered on 06/15/17 08:07; Start 06/12/17 at 16:00; Stop 06/15/17 at 09:27; Status DC Quetiapine Fumarate (SEROquel) 600 mg HS PO Last administered on 06/19/17 20: 16; Start 06/12/17 at 21:00 Non-Formulary Medication 1 tab BID PO ; Start 06/12/17 at 21:00; Status UNV Non-Formulary Medication 1 tab DAILY PO ; Start 06/12/17 at 16:00; Status UNV Non-Formulary Medication 2.5 mg DAILY PO ; Start 06/12/17 at 16:00; Status UNV Lisinopril (Prinivil) 2.5 mg DAILY PO Last administered on 06/13/17 09:00; Start 06/13/17 at 09:00; Stop 06/14/17 at 09:10; Status DC Miscellaneous (Pill Splitter) 1 ea UNSCH PRN OTHER SEE LABEL COMMENTS; Start 06/12/17 at 16:30 Patient Own Medication PT OWN MED: ODEFSEY... DAILY PO ; Start 06/13/17 at 09: 00; Status Future Hold Patient Own Medication PT OWN MED: CALCIUM CARBONA... BID PO ; Start 06/12/17 at 21:00; Status Future Hold Clonidine (Catapres) 0.1 mg Q6H PRN PO SBP>160, DBP>90 Last administered on 02:22; Start 06/12/17 at 18:30; Stop 06/15/17 at 09:27; Status DC Pneumococcal Polyvalent Vaccine (Pneumovax-23 Inj) 25 mcg ONCE ONCE IM ; Start 06/13/17 at 09:00; Stop 06/13/17 at 09:01; Status DC Lisinopril (Prinivil) 10 mg DAILY PO Last administered on 06/19/17 08:16; Start 06/15/17 at 09:00; Stop 06/19/17 at 11:23; Status DC Quetiapine Fumarate (SEROquel) 25 mg BID@09,12 PO Last administered on 08:07; Start 06/14/17 at 12:00; Stop 06/15/17 at 11:15; Status DC Clonidine (Catapres) 0.1 mg ONCE ONCE PO Last administered on 06/14/17 22:04 ; Start 06/14/17 at 21:15; Stop 06/14/17 at 21:16; Status DC Hydralazine HCl (Apresoline) 50 mg ONCE ONCE PO Last administered on 04:19; Start 06/15/17 at 03:30; Stop 06/15/17 at 03:31; Status DC Haloperidol Lactate (Haldol Inj) 4 mg ONCE ONCE IV PUSH Last administered on 06/15/17 06:11; Start 06/15/17 at 06:00; Stop 06/15/17 at 06:01; Status DC Clonidine (Catapres) 0.2 mg Q6H PRN PO SBP>160, DBP>90 Last administered on 06:05; Start 06/15/17 at 12:30 Metoprolol Succinate (Toprol Xl) 100 mg DAILY PO Last administered on 09:48; Start 06/16/17 at 09:00 Metoprolol Succinate (Toprol Xl) 50 mg ONCE ONCE PO Last administered on 09:52; Start 06/15/17 at 09:30; Stop 06/15/17 at 09:39; Status DC Quetiapine Fumarate (SEROquel) 50 mg BID@,12 PO Last administered on 09:00; Start 06/15/17 at 12:00; Stop 06/18/17 at 12:01; Status DC Nifedipine (Procardia Xl) 60 mg ONCE ONCE PO Last administered on 06/15/17 23 :27; Start 06/15/17 at 23:15; Stop 06/15/17 at 23:16; Status DC Nifedipine (Procardia Xl) 60 mg DAILY PO Last administered on 06/19/17 08:16; Start 06/16/17 at 09:00; Stop 06/19/17 at 12:12; Status DC Potassium Chloride (KCl) 40 meq ONCE ONCE PO Last administered on 06/16/17 11 :30; Start 06/16/17 at 11:30; Stop 06/16/17 at 11:31; Status DC Enalaprilat (Vasotec Inj) 2.5 mg ONCE ONCE IV PUSH Last administered on 00:05; Start 06/16/17 at 23:45; Stop 06/16/17 at 23:46; Status DC Hydralazine HCl (Apresoline) 10 mg Q8H PO Last administered on 06/19/17 08:16 ; Start 06/17/17 at 09:00; Stop 06/19/17 at 11:23; Status DC Quetiapine Fumarate (SEROquel) 100 mg BID@12 PO Last administered on 12:32; Start 06/18/17 at 12:00 Clonidine (Catapres) 0.2 mg ONCE ONCE PO Last administered on 06/19/17 05:57 ; Start 06/19/17 at 05:30; Stop 06/19/17 at 05:38; Status DC Lisinopril (Prinivil) 20 mg DAILY PO Last administered on 06/20/17 09:47; Start 06/20/17 at 09:00 Lisinopril (Prinivil) 10 mg ONCE ONCE PO Last administered on 06/19/17 12:03 ; Start 06/19/17 at 11:30; Stop 06/19/17 at 11:59; Status DC Nifedipine (Procardia Xl) 90 mg DAILY PO Last administered on 06/20/17 09:48; Start 06/20/17 at 09:00 Physical Exam General Appearance: Well Developed, Well Nourished, No Acute Distress, Comfortable Pulmonary Resp Exam: Clear Bilaterally, Breath Sounds Equal, No Distress Cardiology CV Exam: Regular, Normal Sinus Rhythm Gastrointestinal/Abdomen GI Exam: Soft, Non-Tender Genitourinary Exam: Clear Urine Integumentary Skin Exam: Clear, Warm, Normal Turgor Extremeties Extremities Exam: No Edema Neurologic Neuro Exam: Alert, Awake, Speech Clear, Moving All Extremities Assessment/Plan Discussed Condition With: Patient Problem List: (1) Hypertension ICD Codes: I10 - Essential (primary) hypertension Status: Acute Plan: Results of renal arterial Doppler study reviewed. Echogenic kidneys noted most likely related to hypertensive nephrosclerosis as discussed with the patient. He was advised that although his renal function appears to be relatively well- preserved renal ultrasound is suggesting developing chronic kidney disease and I emphasized to him the importance of compliance with blood pressure medications and controlling his blood pressure to slow progression of CKD. Also noted was increased peak systolic velocity in the proximal right renal artery and this can be suggestive of a stenosis greater than 60% as discussed with them. He was counseled at length the potential benefit of proceeding with CTA to determine whether or not there is evidence of significant renal artery stenosis which may be amenable to renal artery angiogram and possible stenting if indicated which may result in improved blood pressure as well as potential preservation of renal function for the future. Renal angiogram and possible angioplasty however would be recommended only if there is evidence of significant stenosis on CTA and the patient's blood pressure could not be controlled medically. Despite my counseling regarding potential benefit of proceeding with CTA renal arteries the patient is refusing to have this study performed indicating to me that he wanted to continue with hypertensive medications only as far as blood pressure management is concerned. I reiterated the importance of compliance with blood pressure medications as well as medical follow-up post discharge. He was advised to find another primary care physician post discharge symptoms possible. Await results of other studies as well. Continue to titrate hypertensive medications as indicated. We'll see the patient intermittently in house. (2) Brief psychotic disorder ICD Codes: F23 - Brief psychotic disorder Problem Qualifiers (1) Hypertension: Qualified Codes: I10 - Essential (primary) hypertension Master Walker MD Jun 20, 2017 16:48
--- NOTE | 2017-06-20 17:07 | HHI.PR ---
Subjective Remarks The patient was ambulating in his room. He was talking about random things. He was able to be directed with questioning. Objective Vitals Vital Signs Date Time Temp Pulse Resp B/P (MAP) Pulse Ox O2 Delivery O2 Flow Rate FiO2 06/20/17 06:24 97.5 88 20 160/100 (120) 99 06/20/17 05:34 160/100 (120) 06/19/17 18:58 170/100 (123) 06/19/17 18:00 98.0 82 18 179/70 (106) 100 06/19/17 17:48 185/110 (135) I/O 06/19/17 06/19/17 06/19/17 06/20/17 06/20/17 06/20/17 07:00 15:00 23:00 07:00 15:00 23:00 Intake Total 1100 ml 2000 ml 1060 ml 580 ml 480 ml Output Total 1050 ml 740 ml Balance 50 ml 2000 ml 320 ml 580 ml 480 ml Intake Oral 1100 ml 2000 ml 960 ml 340 ml 480 ml Oral Supplement 100 ml 240 ml Output Urine Total 1050 ml 740 ml # Voids 1 4 2 Result Diagram: 06/16/17 0705 06/20/17 0820 Imaging Last Impressions Renal Ultrasound 06/19/17 0000 Signed Impressions: Service Date/Time: Monday, June 19, 2017 16:47 - CONCLUSION: 1. Elevated velocities in the proximal and mid right renal artery. 2. Nonvisualization of the left mid renal artery with elevated velocity in the distal portion of the renal artery. 3. Echogenic kidneys characteristic of medical renal disease. There is no hydronephrosis. Simone Wolf MD Objective Remarks GENERAL: Resting comfortably. SKIN: Warm and dry. HEAD: Atraumatic. Normocephalic. EYES: Pupils equal and round. No scleral icterus. No injection or drainage. Extraocular muscles intact ENT: No nasal bleeding or discharge. Mucous membranes pink and moist. Tongue is midline NECK: Trachea midline. No JVD. Supple CARDIOVASCULAR: Regular rate and rhythm. S1-S2 no S3 or S4 RESPIRATORY: No accessory muscle use. Clear to auscultation. Breath sounds equal bilaterally. GASTROINTESTINAL: Abdomen soft, non-tender, nondistended. Hepatic and splenic margins not palpable. MUSCULOSKELETAL: Extremities without clubbing, cyanosis, or edema. No obvious deformities. NEUROLOGICAL: Awake and alert. No obvious cranial nerve deficits. Motor grossly within normal limits. Normal speech. PSYCHIATRIC: Calm. Procedures NONE Medications and IVs Current Medications Medications (Trade) Dose Ordered Sig/Zina Route Start Time Stop Time Status Last Admin (Ativan) 1 mg Q6H PRN PO 06/12/17 15:45 06/15/17 21:48 (Ativan Inj) 1 mg Q6H PRN IM 06/12/17 15:45 (Tylenol) 650 mg Q4H PRN PO 06/12/17 15:45 06/19/17 20:17 (Milk Of Magnesia Liq) 30 ml DAILY PRN PO 06/12/17 15:45 (Mag-Al Plus Susp Liq) 30 ml Q6H PRN PO 06/12/17 15:45 (Zovirax) 800 mg DAILY PO 06/12/17 16:00 06/20/17 09:48 (Nizoral 2% Cream) 1 applic BID TOPICAL 06/12/17 21:00 06/20/17 09:48 (SEROquel) 600 mg HS PO 06/12/17 21:00 06/19/17 20:16 (Pill Splitter) 1 ea UNSCH PRN OTHER 06/12/17 16:30 Patient Own Medication PT OWN MED: ODEFSEY... DAILY PO 06/13/17 09:00 Future Hold Patient Own Medication PT OWN MED: CALCIUM CARBONA... BID PO 06/12/17 21:00 Future Hold (Catapres) 0.2 mg Q6H PRN PO 06/15/17 12:30 06/20/17 06:05 (Toprol Xl) 100 mg DAILY PO 06/16/17 09:00 06/20/17 09:48 (SEROquel) 100 mg BID@,12 PO 06/18/17 12:00 06/20/17 12:32 (Prinivil) 20 mg DAILY PO 06/20/17 09:00 06/20/17 09:47 (Procardia Xl) 90 mg DAILY PO 06/20/17 09:00 06/20/17 09:48 A/P Problem List: (1) Hypertension ICD Code: I10 - Essential (primary) hypertension Status: Acute (2) HIV (human immunodeficiency virus infection) ICD Code: Z21 - Asymptomatic human immunodeficiency virus [HIV] infection status Status: Acute Assessment and Plan Patient is a 61-year-old male with primary medical history of HTN, HIV, bipolar , schizoaffective disorder who came into the hospital under [facility] act for psychiatric evaluation. Per review of records [facility] act report patient has absent temporal lobe syndrome, bipolar disorder, schizophrenia who has been having weight loss and poor hygiene sleeping in the park and restrooms. Patient has been combative to his caregiver. He is now admitted to the inpatient psychiatry unit for further evaluation. Consulted for medical management. Bipolar disorder, schizophrenia - Managed by psychiatry team HTN, uncontrolled. Patient remains hypertensive despite restarting of home BP meds and prn Clonidine. Nephrology consult appreciated. Renal ultrasound showed: Elevated velocities in the proximal and mid right renal artery; Nonvisualization of the left mid renal artery with elevated velocity in the distal portion of the renal artery; Echogenic kidneys characteristic of medical renal disease. There is no hydronephrosis. - Continue Metoprolol 100 mg daily, increase lisinopril to 20 mg qd. Increase lisinopril as needed. - Continue Nifedipine, increased to 90 mg daily by nephrology. - Continue prn Clonidine 0.2 mg - Urine catecholamines, metanephrines and vanilylmandelic acid pending Noncompliance, HIV Hep C, history - Continue acyclovir 800 mg daily, Odefsey 1 tab daily - Counseled for compliance Needs to take his medications U tox positive for marijuana use. DVT prop ambulatory Discharge Planning Per primary Problem Qualifiers (1) Hypertension: Qualified Codes: I10 - Essential (primary) hypertension Simone Jones DO Jun 20, 2017 17:07
[2017-06-20 18:00] VITALS: BP 140/100; PULSE 75; RESP 17; TEMP 98.1; O2SAT 97
[2017-06-20 19:42] LABS: METANEPHRINE 24 214 mcg/24 h; METANEPHRINE 24 COLLECTION DUR 24 h; NORMETANEPHRINE 24 721 mcg/24 h; TOTAL METANEPHRINE 935 mcg/24 h; URINE TOTAL VOLUME 8900 mL
[2017-06-20] MEDS: QUEtiapine FUMARATE 300 MG TAB PO SCH (20:43)
[2017-06-20] MEDS: ACETAMINOPHEN 325 MG TAB PO PRN (20:43)
[2017-06-20 21:00] VITALS: BP 182/120
[2017-06-20 22:45] VITALS: BP 160/112
[2017-06-21 02:15] VITALS: BP 180/112
[2017-06-21] MEDS: cloNIDine HCL 0.1 MG TAB PO PRN ×3 (02:53→17:22)
--- NOTE | 2017-06-21 03:42 | RADRPT ---
EXAM DATE/TIME: 06/21/2017 03:11 [facility] COMPARISON: No previous studies available for comparison. INDICATIONS : Altered mental status. RADIATION DOSE: 56.35 CTDIvol (mGy) MEDICAL HISTORY : Hypertension. HIV. Hepatitis C.Stroke. SURGICAL HISTORY : None. ENCOUNTER: Initial ACUITY: 1 day PAIN SCALE: 0/10 LOCATION: cranial TECHNIQUE: Multiple contiguous axial images were obtained of the head. Using automated exposure control and adj ustment of the mA and/or kV according to patient size, radiation dose was kept as low as reasonably a chievable to obtain optimal diagnostic quality images. DICOM format image data is available electro nically for review and comparison. FINDINGS: CEREBRUM: Mild to moderate atrophic changes with sulcal and ventricular prominence. There is encephalomalacia i n portions of the left temporal and parietal lobes. No evidence of midline shift, mass lesion, hemorr jose or acute infarction. No extra-axial fluid collections are seen. POSTERIOR FOSSA: The cerebellum and brainstem are intact. The 4th ventricle is midline. The cerebellopontine angle i s unremarkable. EXTRACRANIAL: The visualized portion of the orbits is intact. SKULL: The calvaria is intact. No evidence of skull fracture. CONCLUSION: 1. No acute hemorrhage or mass effect. 2. Areas of encephalomalacia in the left temporal and parietal lobes. 3. Mild to moderate atrophic change. Simone Wolf MD on June 21, 2017 at 3:40 Board Certified Radiologist. This report was verified electronically.
[2017-06-21 05:30] VITALS: BP 164/120
[2017-06-21] MEDS: LISINOPRIL 20 MG TAB PO SCH (10:10)
[2017-06-21] MEDS: METOPROLOL SUCCINATE 50 MG EXTENDED RELEASE TAB PO SCH (10:10)
[2017-06-21] MEDS: ACYCLOVIR 800 MG TAB PO SCH (10:10)
[2017-06-21] MEDS: NIFEdipine 90 MG SUSTAINED RELEASE TAB PO SCH (10:10)
[2017-06-21] MEDS: KETOCONAZOLE 2% CREAM 15 GM TOPICAL SCH ×2 (10:11→22:08)
[2017-06-21] MEDS: QUEtiapine FUMARATE 100 MG TAB PO SCH ×2 (10:11→12:08)
--- NOTE | 2017-06-21 10:47 | HHI.PYPN ---
Subjective Remarks Patient seen for follow-up, chart reviewed. Discussion with nursing staff reported patient continues to have elevated blood pressure continues to be followed by nephrology consult service. Patient continues to have hinduism preoccupation. Patient found standing in hospital room, cooperative with interview today. Patient states that he has been feeling "excellent" and his mood has been the same. Patient states that he continues to have the same plan which includes finding a cure for AIDS through writing a book or making a movie. Patient states that he had written a letter to Waldemar Dayo which was a "grullon to the cure of AIDS" and states that once he is discharged without trouble sent for him but does not know where he will be taken. He presented to mental health court today which aquatic instructor granted petition for involuntary hospitalization. Review of Systems Except as stated in HPI: all other systems reviewed are Neg Mental Status Examination Appearance: Appropriate Consciousness: Alert Orientation: Person, Place Motor Activity: Normal gait Speech: Unremarkable Language: Perseveration Fund of Knowledge: Adequate Attention and Concentration: Inadequate Memory: Impaired Mood: Appropriate, Other Affect: Appropriate Thought Process & Associations: Loose associations, Disorganized, Tangential Thought Content: Bizarre thinking, Delusional Hallucination Type: None Delusion Type: Bizarre, Paranoid, Other (hinduism) Suicidal Ideation: No Suicidal Plan: No Suicidal Intention: No Homicidal Ideation: No Homicidal Plan: No Homicidal Intention: No Insight: Poor Judgment: Poor Results Labs Labs Reviewed. Test 06/20/17 11:23 Urine Color LIGHT-YELLOW Urine Turbidity CLEAR Urine pH 6.0 Urine Specific [place] 1.009 Urine Protein NEG mg/dL Urine Glucose (UA) NEG mg/dL Urine Ketones NEG mg/dL Urine Occult Blood NEG Urine Nitrite NEG Urine Bilirubin NEG Urine Urobilinogen LESS THAN 2.0 MG/DL Urine Leukocyte Esterase NEG Urine RBC LESS THAN 1 /hpf Microscopic Urinalysis Comment CULT NOT INDICATED Urine Random Creatinine 39 MG/DL Urine Random Total Protein 12 MG/DL Urine Protein/Creatinine Ratio 0.31 Vitals/IOs Vital Signs Date Time Temp Pulse Resp B/P (MAP) Pulse Ox O2 Delivery O2 Flow Rate FiO2 06/21/17 05:30 164/120 (135) 06/20/17 18:00 98.1 75 17 97 Assessment & Plan Problem List: (1) Brief psychotic disorder ICD Codes: F23 - Brief psychotic disorder Assessment & Plan At this time continues to have prominent hinduism delusions stating that he will work with Waldemar Dayo to cure AIDS. Patient presented to mental health court today which aquatic instructor granted retention. Continue current treatment. Recent CT scan of showed encephalomalacia of the left temporal parietal lobes. Neuropsychological consult requested. Discharge planning in progress Justification for Cont. Inpt. At risk for further decompensation event lower level of care Discharge Planning She to be discharged to a nursing facility once one is acquired Jhoan Tabares MD Jun 21, 2017 10:47
--- NOTE | 2017-06-21 15:12 | PD.HHIRCNE ---
Disclaimer Patient was given an explanation of the nature and purpose of the evaluation. Patient agreed to proceed with the evaluation and treatment plan. History Reason for Referral This patient is a 61-year-old male who was [place] acted by his primary care physician with reports of combative/violent behavior at home with his caregiver. Caregiver is his brother, Sajan. Sajan is unable to care for the patient and the patient has reportedly been staying in bathrooms and homeless, not eating and losing weight. Patient is apparently HIV positive and has "absent temporal lobe syndrome". He is grossly psychotic and unable to provide a cogent history. There are his story diagnoses of bipolar disorder and schizophrenia as well. According to the patient's CT scan, his temporal lobe is gone and this makes his personality and behavior difficult to control. The patient tells his caregiver and this physician that his primary care physician, Dr. Poon is attempting to get him sicker or keep him sick to make money off him. The patient has not been eating lunch or dinner and does not stay in the home. It has been 8 days since the patient left the home and the patient claims his brother kicked him out. The patient has not been taking his medications for HIV. Upon interview, the patient immediately makes nonsensical and psychotic remarks such as "I was born in [facility] and a pink missed". He feels this physician's sole is made of chocolate. He is unable to provide cogent information. At this point in his hospitalization, he is referred for baseline neuropsychological evaluation to assess the cognitive, behavioral and emotional aspects of his clinical situation and to provide treatment recommendations. Additional Psychosocial Hx Hx Caffeine Use: Yes Hx Substance Use: Yes (MARIJUANA) Level of Education: High School Employment Status: Disabled Prior Living Setting: Home Dominant Hand: Right Past Surgical/Medical History Past Surgery: No Major surgery in last 100 days: Unknown Hx Orthopedic Surgery: Yes (RIGHT ANKLE ) Hx of Neuro Prob: No Hx Cerebrovascular Accident: Yes (CEREBRAL INFARCT) Hx of Musculoskeletal Pro: No Hx of Cardiovascular Prob: No Hx of Respiratory Problem: No Hx of GI Problems: No Hx of Problems: No Hx of Immuno Disor: Yes (HIV) Hx of Endocrine Problems: No Hx of Eye Probl: No Hx of Hearing or Ear Problems: No Hx Dental Problems: No Hx Psychiatric Problems: No Hx Blood Dyscrasias: No Hx of MDRO: No Hx of Body/Medical Devices: No Blood Transfusion History Will receive Blood /Blood prod: Yes Mental Status Assessment Orientation: oriented to Self, oriented to Place, oriented to Time, oriented to Situation Mental Status: WFL: Language/Interactions, Impaired: Thought processing, Attention, Problem-Solving Adjustment/Coping Assessment Adjustment/Coping: None: Depression, Anxiety, Severe: Awareness, Insight Observation In terms of emotional functioning, the patient demonstrated notable challenges. This patient demonstrated no signs of impulsivity or maxim disinhibition yet he was clearly restless and animated as he attempted to describe his clinical history. There was remarkable evidence of a formal thought disorder and delusional psychosis. There was no evidence of depression or anxiety. The Geriatric Depression Scale-Short Form was administered given the ease to which it is administered to persons with known neurological pathology, and the patient endorsed only 1 of 15 symptoms, which falls within the non depressed range. Thought content was free from suicidal or homicidal but clearly paranoid ideation, and thought processes were tangential and concrete. The patients mood was anxious, and his affect was expansive. The patient appears to possess no insight or awareness into their situation and within the limits of this brief evaluation, very poor judgment. LTG for Adjustment/Coping Defer to psychiatry. LTG Status: Deferred STG Status: Deferred Team Members: Neuropsychologist Effort Assessment Effort: Average Cognition Assessment Rating: WFL: Language, Spatial Judgement, Impaired: Attention/Processing, Executive, Awareness-Insight Adjustm Observation The patient was alert and oriented to person, place, time and circumstances surrounding the recent hospitalization. The Mini-Mental State Exam was administered, and the patient obtained a score of 24 out of 30 points, which falls in the normal range. However, on further evaluation, specific deficits of executive functioning, attentional efficiency and abstract reasoning were identified. In terms of attention skills, the patient exhibited challenges. The patient was able to remain on task and remember basic but not complex verbal instructions. He was unable to focus on specific questions asked of him, and he would become derailed onto a topic of preoccupation, such as his HIV cure or his relationship with his prior HIV physician. In terms of memory functioning, the patient exhibited challenges. Of note is that the patient refused formal memory assessment, and efforts to persuade him to comply were not successful. Qualitatively, he was unable to focus on questions asked of him , which indicated impaired ability to register new information which would attenuate his overall ability to learn new information. In terms of speech and language skills, the patient demonstrated normal abilities. The patients initiated spontaneous conversation throughout the assessment. Speech was characterized by adequate prosody, grammar, articulation and volume but pressured rate. No remarkable dysnomic or paraphasic errors were noted either during conversational speech or on confrontation naming tasks. Reading recognition skills were adequate, as were writing skills. His reading recognition performance on the WRAT-4 fell at the standard score of 95 ( percentile rank of 37), which also serves as a useful index to estimate is premorbid level of intellectual functioning. The patients comprehension for basic one- and two-stage commands was impaired. In terms of problem-solving skills, the patient exhibited considerable challenges. The patients ability to understand abstraction reasoning was clearly abnormal as he was unable to abstract essential shared characteristics of objects and concepts. Mathematical reasoning skills were also abnormal. Speed of information processing, as evaluated by both the Letter and Category Fluency Tests was abnormal. In terms of visuospatial/constructional abilities, the patient ability to copy simple line drawings was intact. Finally, there was no evidence of ideomotor apraxia or constructional difficulties during this brief evaluation. Summary/Diagnosis Summary This 61 year old right-handed male with a long psychiatric history and recent head CT findings of moderate atrophy and left temporoparietal encephalomalacia who presents with current psychotic and delusional symptoms demonstrated neuropsychological test findings of significant impairment of executive functioning, abstract reasoning, and speed of information processing. Furthermore, he demonstrates impairment of insight, awareness and judgment. These findings in combination with his clinical history is consistent with a major neurocognitive disorder, which is likely a strong contributor to his current psychiatric presentation. Certainly, a strong etiology for this major neurocognitive disorder is his HIV condition. Impressions Major Neurocognitive Disorder underlying his current psychiatric disorder. 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 Clearly, the patient does not have cognitive decision making capacity as the patient is unable to understand a situation and its likely consequences, nor is he able to manipulate information rationally. Given the possible underlying etiology of his neuropsychological presentation, it is unclear if he will regain such capacity. Certainly, he will require someone to make decisions on his behalf going forward. This patient should also continue to be followed closely by psychiatry in order to mollify his florid psychotic disorder. Session Attendance Variance 60 minutes. Edu Perez PhD Jun 21, 2017 15:12
--- NOTE | 2017-06-21 16:21 | HHI.PR ---
Subjective Remarks The patient was ambulating around the room. 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 He had no acute concerns at this time. Objective Vitals Vital Signs Date Time Temp Pulse Resp B/P (MAP) Pulse Ox O2 Delivery O2 Flow Rate FiO2 06/21/17 05:30 164/120 (135) 06/21/17 02:15 180/112 (134) 06/20/17 22:45 160/112 (128) 06/20/17 21:00 182/120 (140) 06/20/17 18:00 98.1 75 17 140/100 (113) 97 I/O 06/20/17 06/20/17 06/20/17 06/21/17 06/21/17 06/21/17 07:00 15:00 23:00 07:00 15:00 23:00 Intake Total 580 ml 480 ml 720 ml 580 ml Balance 580 ml 480 ml 720 ml 580 ml Intake Oral 340 ml 480 ml 720 ml 580 ml Oral Supplement 240 ml # Voids 2 6 Result Diagram: 06/20/17 0820 Imaging Last Impressions Head CT 06/20/17 0000 Signed Impressions: Service Date/Time: June 03:11 - CONCLUSION: 1. No acute hemorrhage or mass effect. 2. Areas of encephalomalacia in the left temporal and parietal lobes. 3. Mild to moderate atrophic change. Simone Wolf MD Renal Ultrasound 06/19/17 0000 Signed Impressions: Service Date/Time: Monday, June 19, 2017 16:47 - CONCLUSION: 1. Elevated velocities in the proximal and mid right renal artery. 2. Nonvisualization of the left mid renal artery with elevated velocity in the distal portion of the renal artery. 3. Echogenic kidneys characteristic of medical renal disease. There is no hydronephrosis. Simone Wolf MD Objective Remarks GENERAL: Resting comfortably. SKIN: Warm and dry. HEAD: Atraumatic. Normocephalic. EYES: Pupils equal and round. No scleral icterus. No injection or drainage. Extraocular muscles intact ENT: No nasal bleeding or discharge. Mucous membranes pink and moist. Tongue is midline NECK: Trachea midline. No JVD. Supple CARDIOVASCULAR: Regular rate and rhythm. S1-S2 no S3 or S4 RESPIRATORY: No accessory muscle use. Clear to auscultation. Breath sounds equal bilaterally. GASTROINTESTINAL: Abdomen soft, non-tender, nondistended. Hepatic and splenic margins not palpable. MUSCULOSKELETAL: Extremities without clubbing, cyanosis, or edema. No obvious deformities. NEUROLOGICAL: Awake and alert. No obvious cranial nerve deficits. Motor grossly within normal limits. Normal speech. PSYCHIATRIC: Calm. Procedures NONE Medications and IVs Current Medications Medications (Trade) Dose Ordered Sig/Zina Route Start Time Stop Time Status Last Admin (Ativan) 1 mg Q6H PRN PO 06/12/17 15:45 06/15/17 21:48 (Ativan Inj) 1 mg Q6H PRN IM 06/12/17 15:45 (Tylenol) 650 mg Q4H PRN PO 06/12/17 15:45 06/20/17 20:43 (Milk Of Magnesia Liq) 30 ml DAILY PRN PO 06/12/17 15:45 (Mag-Al Plus Susp Liq) 30 ml Q6H PRN PO 06/12/17 15:45 (Zovirax) 800 mg DAILY PO 06/12/17 16:00 06/21/17 10:10 (Nizoral 2% Cream) 1 applic BID TOPICAL 06/12/17 21:00 06/21/17 10:11 (SEROquel) 600 mg HS PO 06/12/17 21:00 06/20/17 20:43 (Pill Splitter) 1 ea UNSCH PRN OTHER 06/12/17 16:30 Patient Own Medication PT OWN MED: ODEFSEY... DAILY PO 06/13/17 09:00 Future Hold Patient Own Medication PT OWN MED: CALCIUM CARBONA... BID PO 06/12/17 21:00 Future Hold (Catapres) 0.2 mg Q6H PRN PO 06/15/17 12:30 06/21/17 12:08 (Toprol Xl) 100 mg DAILY PO 06/16/17 09:00 06/21/17 10:10 (SEROquel) 100 mg BID@09,12 PO 06/18/17 12:00 06/21/17 12:08 (Prinivil) 20 mg DAILY PO 06/20/17 09:00 06/21/17 10:10 (Procardia Xl) 90 mg DAILY PO 06/20/17 09:00 06/21/17 10:10 A/P Problem List: (1) Hypertension ICD Code: I10 - Essential (primary) hypertension Status: Acute (2) HIV (human immunodeficiency virus infection) ICD Code: Z21 - Asymptomatic human immunodeficiency virus [HIV] infection status Status: Acute Assessment and Plan Patient is a 61-year-old male with primary medical history of HTN, HIV, bipolar , schizoaffective disorder who came into the hospital under Cast[place] act for psychiatric evaluation. Per review of records Cast[place] act report patient has absent temporal lobe syndrome, bipolar disorder, schizophrenia who has been having weight loss and poor hygiene sleeping in the park and restrooms. Patient has been combative to his caregiver. He is now admitted to the inpatient psychiatry unit for further evaluation. Consulted for medical management. Bipolar disorder, schizophrenia Neuropsychology consult appreciated. - Managed by psychiatry team HTN, uncontrolled. Patient remains hypertensive despite restarting of home BP meds and prn Clonidine. Nephrology consult appreciated. Renal ultrasound showed: Elevated velocities in the proximal and mid right renal artery; Nonvisualization of the left mid renal artery with elevated velocity in the distal portion of the renal artery; Echogenic kidneys characteristic of medical renal disease. There is no hydronephrosis. - Continue Metoprolol 100 mg daily, increase lisinopril to 20 mg qd. Increase lisinopril as needed. - Continue Nifedipine, increased to 90 mg daily by nephrology. - Continue prn Clonidine 0.2 mg - Urine catecholamines, metanephrines and vanilylmandelic acid pending Noncompliance, HIV Hep C, history - Continue acyclovir 800 mg daily, Odefsey 1 tab daily - Counseled for compliance Needs to take his medications U tox positive for marijuana use. DVT prop ambulatory Discharge Planning Per primary Problem Qualifiers (1) Hypertension: Qualified Codes: I10 - Essential (primary) hypertension Simone Jones DO Jun 21, 2017 16:21
[2017-06-21] MEDS: hydrALAZINE HCL 25 MG TAB PO SCH (22:08)
[2017-06-21] MEDS: QUEtiapine FUMARATE 300 MG TAB PO SCH (22:08)
[2017-06-22] MEDS: hydrALAZINE HCL 25 MG TAB PO SCH ×3 (06:41→21:28)
[2017-06-22 06:55] VITALS: BP 209/123; PULSE 87; RESP 18; TEMP 98; O2SAT 98
[2017-06-22] MEDS: NIFEdipine 90 MG SUSTAINED RELEASE TAB PO SCH (08:23)
[2017-06-22] MEDS: LISINOPRIL 20 MG TAB PO SCH (08:23)
[2017-06-22] MEDS: QUEtiapine FUMARATE 100 MG TAB PO SCH ×2 (08:23→13:20)
[2017-06-22] MEDS: ACYCLOVIR 800 MG TAB PO SCH (08:23)
[2017-06-22] MEDS: METOPROLOL SUCCINATE 50 MG EXTENDED RELEASE TAB PO SCH (08:23)
[2017-06-22] MEDS: KETOCONAZOLE 2% CREAM 15 GM TOPICAL SCH ×2 (08:25→21:00)
--- NOTE | 2017-06-22 14:20 | HHI.PYPN ---
Subjective Remarks Patient seen for follow-up, chart reviewed. This concerns her staff stated that patient was attempting to cheek his medications today twice, blood pressure still elevated be following medical team. Patient was found sitting in hospital bed, cooperative. Patient states that he is feeling "good" denies any difficulty with sleep, no problems eating and drinking a bowel movement. Patient states that "Logan still has a plan for me". Patient continues to have roman catholic delusions and preoccupations. Review of Systems Except as stated in HPI: all other systems reviewed are Neg Mental Status Examination Appearance: Appropriate Consciousness: Alert Orientation: Person, Place Motor Activity: Normal gait Speech: Unremarkable Language: Perseveration Fund of Knowledge: Adequate Attention and Concentration: Inadequate Memory: Impaired Mood: Appropriate, Other Affect: Appropriate Thought Process & Associations: Loose associations, Disorganized, Tangential Thought Content: Bizarre thinking, Delusional Hallucination Type: None Delusion Type: Bizarre, Paranoid, Other (roman catholic) Suicidal Ideation: No Suicidal Plan: No Suicidal Intention: No Homicidal Ideation: No Homicidal Plan: No Homicidal Intention: No Insight: Poor Judgment: Poor Results Vitals/IOs Vital Signs Date Time Temp Pulse Resp B/P (MAP) Pulse Ox O2 Delivery O2 Flow Rate FiO2 06/22/17 06:55 98.0 87 18 209/123 (151) 98 Intake and Output 06/22/17 06/22/17 06/23/17 08:00 16:00 00:00 Intake Total 360 ml 360 ml Balance 360 ml 360 ml Assessment & Plan Problem List: (1) Brief psychotic disorder ICD Codes: F23 - Brief psychotic disorder Assessment & Plan Patient this time continues to have roman catholic preoccupations and delusions. Patient denies any suicidal homicidal ideations. Patient denies any S time of the patient may be minimizing this. Mouth checks will be ordered as patient attempted to this today. Continue current treatment. Discharge planning in progress Justification for Cont. Inpt. At risk for decompensation event lower level of care. Discharge Planning Patient be transferred to a nursing facility upon discharge. Jhaon Tabares MD Jun 22, 2017 14:20
[2017-06-22 18:54] VITALS: BP 130/78; PULSE 90; RESP 17; TEMP 97.7; O2SAT 99
[2017-06-22] MEDS: QUEtiapine FUMARATE 300 MG TAB PO SCH (21:28)
[2017-06-23 05:58] VITALS: BP 137/77; PULSE 98; RESP 18; TEMP 97.2; O2SAT 96
[2017-06-23] MEDS: hydrALAZINE HCL 25 MG TAB PO SCH ×3 (06:15→22:00)
[2017-06-23] MEDS: ACETAMINOPHEN 325 MG TAB PO PRN (09:08)
[2017-06-23] MEDS: QUEtiapine FUMARATE 100 MG TAB PO SCH ×2 (09:08→12:36)
[2017-06-23] MEDS: ACYCLOVIR 800 MG TAB PO SCH (09:08)
[2017-06-23] MEDS: KETOCONAZOLE 2% CREAM 15 GM TOPICAL SCH ×2 (09:09→21:17)
[2017-06-23] MEDS: METOPROLOL SUCCINATE 50 MG EXTENDED RELEASE TAB PO SCH (09:09)
[2017-06-23] MEDS: LISINOPRIL 20 MG TAB PO SCH (09:09)
[2017-06-23] MEDS: NIFEdipine 90 MG SUSTAINED RELEASE TAB PO SCH (09:39)
--- NOTE | 2017-06-23 09:46 | HHI.PR ---
Subjective Remarks The pt was ambulating the halls. He said he was feeling well and liked his new environment. No acute concerns from nursing. Objective Vitals Vital Signs Date Time Temp Pulse Resp B/P (MAP) Pulse Ox O2 Delivery O2 Flow Rate FiO2 06/23/17 05:58 97.2 98 18 137/77 (97) 96 06/22/17 18:54 97.7 90 17 130/78 (95) 99 130/78 (95) I/O 06/22/17 06/22/17 06/22/17 06/23/17 06/23/17 06/23/17 07:00 15:00 23:00 07:00 15:00 23:00 Intake Total 720 ml 360 ml Balance 720 ml 360 ml Intake Oral 720 ml 360 ml # Voids 2 Result Diagram: 06/20/17 0820 Imaging Last Impressions Head CT 06/20/17 0000 Signed Impressions: Service Date/Time: June 03:11 - CONCLUSION: 1. No acute hemorrhage or mass effect. 2. Areas of encephalomalacia in the left temporal and parietal lobes. 3. Mild to moderate atrophic change. Simone Wolf MD Renal Ultrasound 06/19/17 0000 Signed Impressions: Service Date/Time: Monday, June 19, 2017 16:47 - CONCLUSION: 1. Elevated velocities in the proximal and mid right renal artery. 2. Nonvisualization of the left mid renal artery with elevated velocity in the distal portion of the renal artery. 3. Echogenic kidneys characteristic of medical renal disease. There is no hydronephrosis. Simone Wolf MD Objective Remarks GENERAL: Resting comfortably. SKIN: Warm and dry. HEAD: Atraumatic. Normocephalic. EYES: Pupils equal and round. No scleral icterus. No injection or drainage. Extraocular muscles intact ENT: No nasal bleeding or discharge. Mucous membranes pink and moist. Tongue is midline NECK: Trachea midline. No JVD. Supple CARDIOVASCULAR: Regular rate and rhythm. S1-S2 no S3 or S4 RESPIRATORY: No accessory muscle use. Clear to auscultation. Breath sounds equal bilaterally. GASTROINTESTINAL: Abdomen soft, non-tender, nondistended. Hepatic and splenic margins not palpable. MUSCULOSKELETAL: Extremities without clubbing, cyanosis, or edema. No obvious deformities. NEUROLOGICAL: Awake and alert. No obvious cranial nerve deficits. Motor grossly within normal limits. Normal speech. PSYCHIATRIC: Calm. Procedures NONE Medications and IVs Current Medications Medications (Trade) Dose Ordered Sig/Zina Route Start Time Stop Time Status Last Admin (Ativan) 1 mg Q6H PRN PO 06/12/17 15:45 06/15/17 21:48 (Ativan Inj) 1 mg Q6H PRN IM 06/12/17 15:45 (Tylenol) 650 mg Q4H PRN PO 06/12/17 15:45 06/23/17 09:08 (Milk Of Magnesia Liq) 30 ml DAILY PRN PO 06/12/17 15:45 (Mag-Al Plus Susp Liq) 30 ml Q6H PRN PO 06/12/17 15:45 (Zovirax) 800 mg DAILY PO 06/12/17 16:00 06/23/17 09:08 (Nizoral 2% Cream) 1 applic BID TOPICAL 06/12/17 21:00 06/23/17 09:09 (SEROquel) 600 mg HS PO 06/12/17 21:00 06/22/17 21:28 (Pill Splitter) 1 ea UNSCH PRN OTHER 06/12/17 16:30 Patient Own Medication PT OWN MED: ODEFSEY... DAILY PO 06/13/17 09:00 Future Hold Patient Own Medication PT OWN MED: CALCIUM CARBONA... BID PO 06/12/17 21:00 Future Hold (Catapres) 0.2 mg Q6H PRN PO 06/15/17 12:30 06/21/17 17:22 (Toprol Xl) 100 mg DAILY PO 06/16/17 09:00 06/23/17 09:09 (SEROquel) 100 mg BID@09,12 PO 06/18/17 12:00 06/23/17 09:08 (Prinivil) 20 mg DAILY PO 06/20/17 09:00 06/23/17 09:09 (Procardia Xl) 90 mg DAILY PO 06/20/17 09:00 06/23/17 09:39 (Apresoline) 25 mg Q8HR PO 06/21/17 22:00 06/23/17 06:15 A/P Problem List: (1) Hypertension ICD Code: I10 - Essential (primary) hypertension Status: Acute (2) HIV (human immunodeficiency virus infection) ICD Code: Z21 - Asymptomatic human immunodeficiency virus [HIV] infection status Status: Acute Assessment and Plan Patient is a 61-year-old male with primary medical history of HTN, HIV, bipolar , schizoaffective disorder who came into the hospital under [place] act for psychiatric evaluation. Per review of records [place] act report patient has absent temporal lobe syndrome, bipolar disorder, schizophrenia who has been having weight loss and poor hygiene sleeping in the park and restrooms. Patient has been combative to his caregiver. He is now admitted to the inpatient psychiatry unit for further evaluation. Consulted for medical management. Bipolar disorder, schizophrenia Neuropsychology consult appreciated. - Managed by psychiatry team HTN, uncontrolled. Patient remains hypertensive despite restarting of home BP meds and prn Clonidine. Nephrology consult appreciated. Renal ultrasound showed: Elevated velocities in the proximal and mid right renal artery; Nonvisualization of the left mid renal artery with elevated velocity in the distal portion of the renal artery; Echogenic kidneys characteristic of medical renal disease. There is no hydronephrosis. - Continue Metoprolol 100 mg daily, increase lisinopril to 20 mg qd. Increase lisinopril as needed. - Continue Nifedipine, increased to 90 mg daily by nephrology. Hydralazine 25 mg q8h also added. - Continue prn Clonidine 0.2 mg - Urine catecholamines, metanephrines and vanilylmandelic acid pending Noncompliance, HIV Hep C, history - Continue acyclovir 800 mg daily, Odefsey 1 tab daily - Counseled for compliance Needs to take his medications U tox positive for marijuana use. DVT prop ambulatory Discharge Planning Per primary Problem Qualifiers (1) Hypertension: Qualified Codes: I10 - Essential (primary) hypertension Simone Jones DO Jun 23, 2017 09:46
--- NOTE | 2017-06-23 13:54 | HHI.PYPN ---
Subjective Remarks Patient was seen and case discussed with nursing. Patient is pleasant and cooperative with exam. Thought process is loose patient remains acutely psychotic. He he speaks to God throughout the day. Behaving well on the unit Mental Status Examination Appearance: Appropriate Consciousness: Alert Orientation: Person, Place Motor Activity: Normal gait Speech: Unremarkable Language: Perseveration Fund of Knowledge: Adequate Attention and Concentration: Inadequate Memory: Impaired Mood: Appropriate, Other Affect: Appropriate Thought Process & Associations: Loose associations, Disorganized, Tangential Thought Content: Bizarre thinking, Delusional Hallucination Type: None Delusion Type: Bizarre, Paranoid, Other (moravian) Suicidal Ideation: No Suicidal Plan: No Suicidal Intention: No Homicidal Ideation: No Homicidal Plan: No Homicidal Intention: No Insight: Poor Judgment: Poor Results Vitals/IOs Vital Signs Date Time Temp Pulse Resp B/P (MAP) Pulse Ox O2 Delivery O2 Flow Rate FiO2 06/23/17 05:58 97.2 98 18 137/77 (97) 96 Intake and Output 06/23/17 06/23/17 06/24/17 08:00 16:00 00:00 Intake Total 720 ml Balance 720 ml Assessment & Plan Problem List: (1) Brief psychotic disorder ICD Codes: F23 - Brief psychotic disorder Assessment & Plan Continue current treatment plan Justification for Cont. Inpt. Patient would decompensate in a less restrictive setting Manny Camacho DO Jun 23, 2017 13:54
[2017-06-23] MEDS: QUEtiapine FUMARATE 300 MG TAB PO SCH (21:17)
[2017-06-24] MEDS: hydrALAZINE HCL 25 MG TAB PO SCH ×3 (06:22→20:59)
[2017-06-24 06:30] VITALS: BP 137/82; PULSE 89; RESP 18; TEMP 98.1; O2SAT 99
[2017-06-24] MEDS: NIFEdipine 90 MG SUSTAINED RELEASE TAB PO SCH (09:16)
[2017-06-24] MEDS: QUEtiapine FUMARATE 100 MG TAB PO SCH ×2 (09:16→12:00)
[2017-06-24] MEDS: LISINOPRIL 20 MG TAB PO SCH (09:16)
[2017-06-24] MEDS: KETOCONAZOLE 2% CREAM 15 GM TOPICAL SCH ×2 (09:16→21:00)
[2017-06-24] MEDS: METOPROLOL SUCCINATE 50 MG EXTENDED RELEASE TAB PO SCH (09:16)
[2017-06-24] MEDS: ACYCLOVIR 800 MG TAB PO SCH (09:16)
--- NOTE | 2017-06-24 14:01 | HHI.PYPN ---
Subjective Remarks Patient was seen and case discussed with nursing. Patient remains religiously preoccupied. Thought process remains loose. Largely seclusive to self per nursing. No outbursts or ETO's needed. Tolerating medications well Mental Status Examination Appearance: Appropriate Consciousness: Alert Orientation: Person, Place Motor Activity: Normal gait Speech: Unremarkable Language: Perseveration Fund of Knowledge: Adequate Attention and Concentration: Inadequate Memory: Impaired Mood: Appropriate, Other Affect: Appropriate Thought Process & Associations: Loose associations, Tangential Thought Content: Bizarre thinking, Delusional Hallucination Type: None Delusion Type: Paranoid, Other (shinto) Suicidal Ideation: No Suicidal Plan: No Suicidal Intention: No Homicidal Ideation: No Homicidal Plan: No Homicidal Intention: No Insight: Poor Judgment: Poor Results Vitals/IOs Vital Signs Date Time Temp Pulse Resp B/P (MAP) Pulse Ox O2 Delivery O2 Flow Rate FiO2 06/24/17 06:30 98.1 89 18 137/82 (100) 99 Automatic Cuff Assessment & Plan Problem List: (1) Brief psychotic disorder ICD Codes: F23 - Brief psychotic disorder Assessment & Plan Continue current treatment plan Justification for Cont. Inpt. Patient will decompensate in a less restrictive setting Manny Camacho DO Jun 24, 2017 14:01
[2017-06-24] MEDS: ACETAMINOPHEN 325 MG TAB PO PRN (17:30)
[2017-06-24 18:04] VITALS: BP 170/96; PULSE 95; RESP 17; TEMP 100.2; O2SAT 97
[2017-06-24] MEDS: QUEtiapine FUMARATE 300 MG TAB PO SCH (20:58)
[2017-06-25 05:29] VITALS: BP 148/90; PULSE 82; RESP 17; TEMP 97.7; O2SAT 98
[2017-06-25] MEDS: hydrALAZINE HCL 25 MG TAB PO SCH ×3 (05:54→22:38)
[2017-06-25] MEDS: NIFEdipine 90 MG SUSTAINED RELEASE TAB PO SCH (09:00)
[2017-06-25] MEDS: KETOCONAZOLE 2% CREAM 15 GM TOPICAL SCH ×2 (09:00→22:38)
[2017-06-25] MEDS: METOPROLOL SUCCINATE 50 MG EXTENDED RELEASE TAB PO SCH (09:04)
[2017-06-25] MEDS: QUEtiapine FUMARATE 100 MG TAB PO SCH ×2 (09:04→11:12)
[2017-06-25] MEDS: LISINOPRIL 20 MG TAB PO SCH (09:05)
[2017-06-25] MEDS: ACYCLOVIR 800 MG TAB PO SCH (09:05)
--- NOTE | 2017-06-25 15:36 | PD.TTN ---
Patient Problems 1. Discharge planning 2. Medication compliance 3. Knowledge deficit 4. Lack of coping skills Progress Toward Goals Provider Present: Dr. Binu Tabares Provider Input: 06/20/2017; patient is at the highest dosage of medication and might need to have an additional med added to level off his mood/behavior. Patient is new to unit and will be starting on a medication regiment. Will monitor progress of patient throughout the week. 06/18/2017 - Dr. Tabares reports the patient would like placement in an [facility]. 06/25 - Patient will continue to be looked for in regards to placement. Not behavioral issues on the unit. Nurse(s) Present: TONY Lara Nurse(s) Input: 06/20/2017; Patient is taking his medication, eating meals; however patient displays manic behavior, up doing the night hours with limited sleep. 06/25 patient is noted to have no behavioral issues on the unit and has been compliant with medications. denies side effects Psychiatric Counselors Present: DANITZA Velarde Psych Therapist Input: 06/20/2017 Counselor will begin the process for finding appropriate placement Counselor will be in contact with family memebers to recieve collateral information in regards to patient's progress. 06-18-2017 - Counselor has faxed patient's packet to [facility] for admissions review. Counselor called [facility] and there are no beds available at this time. 06/25 patient is cooperative and calm on the unit and counselor will look for placement. Patient does not socialize with peers but is pleasant. Group Spec/RT/OT/SCHMIDT Present: Bel Velázquez, DEE, BRAYAN Restrepo, BRAYAN Silva Group Spec/RT/OT/SCHMIDT Input: 06/20/2017: Attends most groups, very cooperate, very hyperverbal Patient is new to unit and has not attend groups yet. 06-18-2017 - Patient attends select groups and his behavior is appropriate. Documentation Scribe: Gisselle Shin [facility] Date Resolved: Jun 20, 2017 Linda Chandler Jun 25, 2017 15:36
[2017-06-25 16:53] VITALS: BP 130/66; PULSE 71; RESP 18; TEMP 98.7
[2017-06-25 16:59] LABS: BASOPHIL # 0.1 TH/MM3 (0-0.2); BASOPHIL % 1.2 % (0.0-2.0); EOSINOPHIL # 0.3 TH/MM3 (0-0.4); EOSINOPHIL % 4.2 % (0.0-4.0); HEMATOCRIT 42.8 % (39.0-51.0); HEMOGLOBIN 14.8 GM/DL (13.0-17.0); LYMPH % 19.7 % (9.0-44.0); LYMPHOCYTE # 1.5 TH/MM3 (1.0-4.8); MEAN CELL VOLUME 90.4 FL (80.0-100.0); MEAN CORPUSCULAR HEMOGLOBIN 31.3 PG (27.0-34.0); MEAN CORPUSCULAR HGB CONC 34.7 % (32.0-36.0); MEAN PLATELET VOLUME 8.1 FL (7.0-11.0); MONO % 10.1 % (0.0-8.0); MONOCYTE # 0.8 TH/MM3 (0-0.9); NEUT % 64.8 % (16.0-70.0); PLATELET COUNT 274 TH/MM3 (150-450); RED BLOOD COUNT 4.73 MIL/MM3 (4.50-5.90); RED CELL DISTRIBUTION WIDTH 12.9 % (11.6-17.2); WHITE BLOOD COUNT 7.7 TH/MM3 (4.0-11.0)
[2017-06-25 17:22] LABS: BICARBONATE 29.1 MEQ/L (21.0-32.0); CALCIUM 9.9 MG/DL (8.5-10.1); CREATININE 0.96 MG/DL (0.60-1.30)
--- NOTE | 2017-06-25 21:19 | HHI.PYPN ---
Subjective Remarks Patient seen for follow up; chart reviewed. Patient found in room, calm and cooperative. He states that he is feeling "excellent" and that he is doing his daily exercises. He reports that he continues with the same plan amberly Ford has set out for him. He reports that Logan told him "don't worry" and that Logan was made of a red energy. Patient continues with yazidi preocupation and delusions. Review of Systems Except as stated in HPI: all other systems reviewed are Neg Mental Status Examination Appearance: Appropriate Consciousness: Alert Orientation: Person, Place Motor Activity: Normal gait Speech: Unremarkable Language: Perseveration Fund of Knowledge: Adequate Attention and Concentration: Inadequate Memory: Impaired Mood: Appropriate, Other Affect: Appropriate Thought Process & Associations: Loose associations, Tangential Thought Content: Bizarre thinking, Hallucinations, Delusional Hallucination Type: Auditory Delusion Type: Paranoid, Other (yazidi) Suicidal Ideation: No Suicidal Plan: No Suicidal Intention: No Homicidal Ideation: No Homicidal Plan: No Homicidal Intention: No Insight: Poor Judgment: Poor Results Labs labs reviewed Test 06/25/17 16:48 White Blood Count 7.7 TH/MM3 Red Blood Count 4.73 MIL/MM3 Hemoglobin 14.8 GM/DL Hematocrit 42.8 % Mean Corpuscular Volume 90.4 FL Mean Corpuscular Hemoglobin 31.3 PG Mean Corpuscular Hemoglobin Concent 34.7 % Red Cell Distribution Width 12.9 % Platelet Count 274 TH/MM3 Mean Platelet Volume 8.1 FL Neutrophils (%) (Auto) 64.8 % Lymphocytes (%) (Auto) 19.7 % Monocytes (%) (Auto) 10.1 % Eosinophils (%) (Auto) 4.2 % Basophils (%) (Auto) 1.2 % Neutrophils # (Auto) 5.0 TH/MM3 Lymphocytes # (Auto) 1.5 TH/MM3 Monocytes # (Auto) 0.8 TH/MM3 Eosinophils # (Auto) 0.3 TH/MM3 Basophils # (Auto) 0.1 TH/MM3 CBC Comment DIFF FINAL Differential Comment Blood Urea Nitrogen 24 MG/DL Creatinine 0.96 MG/DL Random Glucose 75 MG/DL Calcium Level 9.9 MG/DL Sodium Level 134 MEQ/L Potassium Level 4.5 MEQ/L Chloride Level 101 MEQ/L Carbon Dioxide Level 29.1 MEQ/L Anion Gap 4 MEQ/L Estimat Glomerular Filtration Rate 80 ML/MIN Vitals/IOs Vital Signs Date Time Temp Pulse Resp B/P (MAP) Pulse Ox O2 Delivery O2 Flow Rate FiO2 06/25/17 16:53 98.7 71 18 130/66 (87) 06/25/17 05:29 98 Assessment & Plan Problem List: (1) Brief psychotic disorder ICD Codes: F23 - Brief psychotic disorder Assessment & Plan Patient continues with yazidi delusions and preoccupation along with AH. Continue current treatment. Patient noted to have slightly decreased sodium level. Patient has history of drinking water throughout the day. Monitor PO intake of fluids. Patient to continue recommendations as per primary medical team. Discharge planning in progress. Justification for Cont. Inpt. At risk for further decompensation if at lower level of care. Discharge Planning Patient to be discharged to nursing facility once one is acquired. Jhoan Tabares MD Jun 25, 2017 21:19
--- NOTE | 2017-06-25 21:27 | RADRPT ---
EXAM DATE/TIME: 06/25/2017 20:45 [facility] COMPARISON: No previous studies available for comparison. INDICATIONS : Pneumonia. MEDICAL HISTORY : Hypertension. HIV. Hepatitis C. Stroke. SURGICAL HISTORY : None. ENCOUNTER: Initial ACUITY: 1 day PAIN SCORE: 0/10 LOCATION: Bilateral chest FINDINGS: A single view of the chest demonstrates the lungs to be symmetrically aerated without evidence of mas s, infiltrate or effusion. The cardiomediastinal contours are unremarkable. Osseous structures are intact. CONCLUSION: No acute disease. Wesly Chapin MD on June 25, 2017 at 21:25 Board Certified Radiologist. This report was verified electronically.
[2017-06-25] MEDS: QUEtiapine FUMARATE 300 MG TAB PO SCH (22:38)
[2017-06-26] MEDS: hydrALAZINE HCL 25 MG TAB PO SCH ×3 (06:18→21:53)
[2017-06-26 06:36] VITALS: BP 150/89; PULSE 75; RESP 17; TEMP 97.6; O2SAT 99
[2017-06-26] MEDS: NIFEdipine 90 MG SUSTAINED RELEASE TAB PO SCH (09:00)
[2017-06-26] MEDS: ACYCLOVIR 800 MG TAB PO SCH (09:01)
[2017-06-26] MEDS: LISINOPRIL 20 MG TAB PO SCH (09:01)
[2017-06-26] MEDS: METOPROLOL SUCCINATE 50 MG EXTENDED RELEASE TAB PO SCH (09:01)
[2017-06-26] MEDS: QUEtiapine FUMARATE 100 MG TAB PO SCH ×2 (09:01→11:58)
[2017-06-26] MEDS: KETOCONAZOLE 2% CREAM 15 GM TOPICAL SCH ×2 (09:02→21:54)
[2017-06-26 09:41] LABS: RENIN 6.7 ng/mL/h
--- NOTE | 2017-06-26 14:49 | HHI.PYPN ---
Subjective Remarks Patient seen for follow-up, chart reviewed. Patient was fond and his room, cooperative in interview. She states that he is feeling "excellent" states that God has a "saying plan" with him patient went off his to elaborate on how to feel comedown from heaven and they got has a plan for them. Patient continues to endorse having been directed by God to get renovates in the world. Patient denies any voices from God but at times states that he does communicate with him and does have occasional statements stating that God has spoken to him. Patient denies any physical place at this time, reporting tolerating medications well. Patient continues to wait for acceptance into a long term facility. Review of Systems Except as stated in HPI: all other systems reviewed are Neg Mental Status Examination Appearance: Appropriate Consciousness: Alert Orientation: Person, Place Motor Activity: Normal gait Speech: Unremarkable Language: Perseveration Fund of Knowledge: Adequate Attention and Concentration: Inadequate Memory: Impaired Mood: Appropriate, Other Affect: Appropriate Thought Process & Associations: Loose associations, Tangential Thought Content: Bizarre thinking, Hallucinations, Delusional Hallucination Type: Auditory Delusion Type: Paranoid, Other (orthodoxy) Suicidal Ideation: No Suicidal Plan: No Suicidal Intention: No Homicidal Ideation: No Homicidal Plan: No Homicidal Intention: No Insight: Poor Judgment: Poor Results Labs Labs reviewed. Test 06/25/17 16:48 White Blood Count 7.7 TH/MM3 Red Blood Count 4.73 MIL/MM3 Hemoglobin 14.8 GM/DL Hematocrit 42.8 % Mean Corpuscular Volume 90.4 FL Mean Corpuscular Hemoglobin 31.3 PG Mean Corpuscular Hemoglobin Concent 34.7 % Red Cell Distribution Width 12.9 % Platelet Count 274 TH/MM3 Mean Platelet Volume 8.1 FL Neutrophils (%) (Auto) 64.8 % Lymphocytes (%) (Auto) 19.7 % Monocytes (%) (Auto) 10.1 % Eosinophils (%) (Auto) 4.2 % Basophils (%) (Auto) 1.2 % Neutrophils # (Auto) 5.0 TH/MM3 Lymphocytes # (Auto) 1.5 TH/MM3 Monocytes # (Auto) 0.8 TH/MM3 Eosinophils # (Auto) 0.3 TH/MM3 Basophils # (Auto) 0.1 TH/MM3 CBC Comment DIFF FINAL Differential Comment Blood Urea Nitrogen 24 MG/DL Creatinine 0.96 MG/DL Random Glucose 75 MG/DL Calcium Level 9.9 MG/DL Sodium Level 134 MEQ/L Potassium Level 4.5 MEQ/L Chloride Level 101 MEQ/L Carbon Dioxide Level 29.1 MEQ/L Anion Gap 4 MEQ/L Estimat Glomerular Filtration Rate 80 ML/MIN Vitals/IOs Vital Signs Date Time Temp Pulse Resp B/P (MAP) Pulse Ox O2 Delivery O2 Flow Rate FiO2 06/26/17 06:36 97.6 75 17 150/89 (109) 99 Intake and Output 06/26/17 06/26/17 06/27/17 08:00 16:00 00:00 Intake Total 630 ml 480 ml Balance 630 ml 480 ml Assessment & Plan Problem List: (1) Psychotic disorder ICD Codes: F29 - Unspecified psychosis not due to a substance or known physiological condition Assessment & Plan Patient continues to have paranoid delusions and auditory hallucinations hallucinations which she denies at times admits to having pain responded to by God. Continue current treatment for now. Patient continuing to wait for acceptance to a nursing facility. Discharge planning in progress Justification for Cont. Inpt. At risk for further decompensation if at lower level of care Discharge Planning Patient to be discharged to a nursing facility once he is accepted. Jhoan Tabares MD Jun 26, 2017 14:49
--- NOTE | 2017-06-26 17:04 | HHI.PR ---
Subjective Remarks Follow up on patient with HTN, HIV. Patient seen and examined. Patient states he feels "excellent". He denies any complaints of chest pain or shortness of breath. Denies any headache, vision changes, lightheadedness or dizziness. Denies any nausea, vomiting or abdominal pain. Patient expresses to me that he is concerned that his brother decided to have surgical intervention for his lung cancer instead of pursuing marijuana treatment. Objective Vitals Vital Signs Date Time Temp Pulse Resp B/P (MAP) Pulse Ox O2 Delivery O2 Flow Rate FiO2 06/26/17 06:36 97.6 75 17 150/89 (109) 99 I/O 06/25/17 06/25/17 06/25/17 06/26/17 06/26/17 06/26/17 07:00 15:00 23:00 07:00 15:00 23:00 Intake Total 150 ml 150 ml 960 ml Balance 150 ml 150 ml 960 ml Intake Oral 150 ml 150 ml 960 ml Result Diagram: 06/25/17 1648 06/25/17 1648 Imaging Last Impressions Chest X-Ray 06/25/17 0000 Signed Impressions: Service Date/Time: Sunday, June 25, 2017 20:45 - CONCLUSION: No acute disease. Wesly Chapin MD Head CT 06/20/17 0000 Signed Impressions: Service Date/Time: June 03:11 - CONCLUSION: 1. No acute hemorrhage or mass effect. 2. Areas of encephalomalacia in the left temporal and parietal lobes. 3. Mild to moderate atrophic change. Simone Wolf MD Renal Ultrasound 06/19/17 0000 Signed Impressions: Service Date/Time: Monday, June 19, 2017 16:47 - CONCLUSION: 1. Elevated velocities in the proximal and mid right renal artery. 2. Nonvisualization of the left mid renal artery with elevated velocity in the distal portion of the renal artery. 3. Echogenic kidneys characteristic of medical renal disease. There is no hydronephrosis. Simone Wolf MD Objective Remarks GENERAL: Well-nourished, well-developed patient in NAD. Awake and alert. Sitting in the day room. SKIN: Warm and dry. No rash. HEAD: Normocephalic. Atraumatic. EYES: Pupils equal and round. No scleral icterus. No injection or drainage. ENT: No nasal bleeding or discharge. Mucous membranes pink and moist. NECK: Supple. Trachea midline. CARDIOVASCULAR: Regular rate and rhythm. S1, S2 noted. No murmur appreciated. RESPIRATORY: Nonlabored. Clear to auscultation. Breath sounds equal bilaterally. GASTROINTESTINAL: Abdomen soft, non-tender, nondistended. Normoactive bowel sounds x4. MUSCULOSKELETAL: No obvious deformities. Extremities without clubbing, cyanosis , or edema. NEUROLOGICAL: Awake and alert. Able to move all extremities spontaneously. Nonfocal. Normal speech. PSYCHIATRIC: Calm, pleasant. Appropriate mood, inappropriate judgment and insight. Procedures NONE Medications and IVs Current Medications Medications (Trade) Dose Ordered Sig/Zina Route Start Time Stop Time Status Last Admin (Ativan) 1 mg Q6H PRN PO 06/12/17 15:45 06/15/17 21:48 (Ativan Inj) 1 mg Q6H PRN IM 06/12/17 15:45 (Tylenol) 650 mg Q4H PRN PO 06/12/17 15:45 06/24/17 17:30 (Milk Of Magnesia Liq) 30 ml DAILY PRN PO 06/12/17 15:45 (Mag-Al Plus Susp Liq) 30 ml Q6H PRN PO 06/12/17 15:45 (Zovirax) 800 mg DAILY PO 06/12/17 16:00 06/26/17 09:01 (Nizoral 2% Cream) 1 applic BID TOPICAL 06/12/17 21:00 06/26/17 09:02 (SEROquel) 600 mg HS PO 06/12/17 21:00 06/25/17 22:38 (Pill Splitter) 1 ea UNSCH PRN OTHER 06/12/17 16:30 Patient Own Medication PT OWN MED: ODEFSEY... DAILY PO 06/13/17 09:00 Future Hold Patient Own Medication PT OWN MED: CALCIUM CARBONA... BID PO 06/12/17 21:00 Future Hold (Catapres) 0.2 mg Q6H PRN PO 06/15/17 12:30 06/21/17 17:22 (Toprol Xl) 100 mg DAILY PO 06/16/17 09:00 06/26/17 09:01 (SEROquel) 100 mg BID@,12 PO 06/18/17 12:00 06/26/17 11:58 (Prinivil) 20 mg DAILY PO 06/20/17 09:00 06/26/17 09:01 (Procardia Xl) 90 mg DAILY PO 06/20/17 09:00 06/26/17 09:00 (Apresoline) 25 mg Q8HR PO 06/21/17 22:00 06/26/17 14:00 A/P Problem List: (1) Hypertension ICD Code: I10 - Essential (primary) hypertension Status: Acute (2) HIV (human immunodeficiency virus infection) ICD Code: Z21 - Asymptomatic human immunodeficiency virus [HIV] infection status Status: Acute Assessment and Plan atient is a 61-year-old male with primary medical history of HTN, HIV, bipolar, schizoaffective disorder who came into the hospital under [place] act for psychiatric evaluation. Per review of records [place] act report patient has absent temporal lobe syndrome, bipolar disorder, schizophrenia who has been having weight loss and poor hygiene sleeping in the park and restrooms. Patient has been combative to his caregiver. He is now admitted to the inpatient psychiatry unit for further evaluation. Consulted for medical management. Bipolar disorder, schizophrenia Neuropsychology consult appreciated. - Managed by psychiatry team HTN, uncontrolled. Patient remains hypertensive despite restarting of home BP meds and prn Clonidine. Nephrology consult appreciated. Renal ultrasound showed: Elevated velocities in the proximal and mid right renal artery; Nonvisualization of the left mid renal artery with elevated velocity in the distal portion of the renal artery; Echogenic kidneys characteristic of medical renal disease. There is no hydronephrosis. - Continue Toprol XL 100 mg daily, increase lisinopril to 20 mg qd. Increase lisinopril as needed. - Continue Nifedipine XL, increased to 90 mg daily by nephrology. Hydralazine 25 mg q8h also added. - BP overall improved, continue to monitor - Continue prn Clonidine 0.2 mg - Urine catecholamines, metanephrines and vanilylmandelic acid pending Noncompliance, HIV Hep C, history - Continue acyclovir 800 mg daily, Odefsey 1 tab daily - Counseled for compliance U tox positive for marijuana use. DVT prop ambulatory Problem Qualifiers (1) Hypertension: Qualified Codes: I10 - Essential (primary) hypertension Tammy Callahan Jun 26, 2017 17:04
[2017-06-26 18:00] VITALS: BP 142/82; PULSE 93; RESP 18; TEMP 97.1; O2SAT 97
[2017-06-26] MEDS: QUEtiapine FUMARATE 300 MG TAB PO SCH (21:53)
[2017-06-27 06:03] VITALS: BP 133/68; PULSE 110; RESP 18; TEMP 97.3; O2SAT 98
[2017-06-27] MEDS: hydrALAZINE HCL 25 MG TAB PO SCH ×3 (06:14→21:15)
[2017-06-27] MEDS: LISINOPRIL 20 MG TAB PO SCH (08:31)
[2017-06-27] MEDS: NIFEdipine 90 MG SUSTAINED RELEASE TAB PO SCH (08:31)
[2017-06-27] MEDS: KETOCONAZOLE 2% CREAM 15 GM TOPICAL SCH ×2 (08:31→21:00)
[2017-06-27] MEDS: ACYCLOVIR 800 MG TAB PO SCH (08:31)
[2017-06-27] MEDS: METOPROLOL SUCCINATE 50 MG EXTENDED RELEASE TAB PO SCH (08:31)
[2017-06-27] MEDS: QUEtiapine FUMARATE 100 MG TAB PO SCH ×2 (08:31→12:30)
--- NOTE | 2017-06-27 09:07 | HHI.PR ---
Subjective Remarks Follow up on patient with HTN. Patient seen and examined. Patient rates he feels great. He denies any acute medical complaints. Denies any headache, vision changes, dizziness or lightheadedness. Denies any fever or chills. Denies any chest pain or shortness of breath. Denies any nausea, vomiting or abdominal pain. Objective Vitals Vital Signs Date Time Temp Pulse Resp B/P (MAP) Pulse Ox O2 Delivery O2 Flow Rate FiO2 06/27/17 06:03 97.3 110 18 133/68 (89) 98 06/26/17 18:00 97.1 93 18 142/82 (102) 97 I/O 06/26/17 06/26/17 06/26/17 06/27/17 06/27/17 06/27/17 07:00 15:00 23:00 07:00 15:00 23:00 Intake Total 630 ml 960 ml 150 ml Balance 630 ml 960 ml 150 ml Intake Oral 630 ml 960 ml 150 ml Result Diagram: 06/25/17 1648 06/25/17 1648 Imaging Last Impressions Chest X-Ray 06/25/17 0000 Signed Impressions: Service Date/Time: Sunday, June 25, 2017 20:45 - CONCLUSION: No acute disease. Wesly Chapin MD Head CT 06/20/17 0000 Signed Impressions: Service Date/Time: June 03:11 - CONCLUSION: 1. No acute hemorrhage or mass effect. 2. Areas of encephalomalacia in the left temporal and parietal lobes. 3. Mild to moderate atrophic change. Simone Wolf MD Renal Ultrasound 06/19/17 0000 Signed Impressions: Service Date/Time: Monday, June 19, 2017 16:47 - CONCLUSION: 1. Elevated velocities in the proximal and mid right renal artery. 2. Nonvisualization of the left mid renal artery with elevated velocity in the distal portion of the renal artery. 3. Echogenic kidneys characteristic of medical renal disease. There is no hydronephrosis. Simone Wolf MD Objective Remarks GENERAL: Well-nourished, well-developed patient in NAD. Awake and alert. Ambulating in hospital room. SKIN: Warm and dry. HEAD: Normocephalic. Atraumatic. EYES: EOMI. No scleral icterus. No injection or drainage. ENT: No nasal bleeding or discharge. Mucous membranes pink and moist. NECK: Trachea midline. CARDIOVASCULAR: Regular rate and rhythm. S1, S2 noted. No murmur appreciated. RESPIRATORY: Nonlabored. Clear to auscultation. Breath sounds equal bilaterally. GASTROINTESTINAL: Abdomen soft, non-tender, nondistended. Normoactive bowel sounds x4. MUSCULOSKELETAL: No obvious deformities. Extremities without clubbing, cyanosis , or edema. NEUROLOGICAL: Awake and alert. Able to move all extremities spontaneously. Nonfocal. Normal speech. PSYCHIATRIC: Calm, pleasant. Appropriate mood, inappropriate judgment and insight. Procedures NONE Medications and IVs Current Medications Medications (Trade) Dose Ordered Sig/Zina Route Start Time Stop Time Status Last Admin (Ativan) 1 mg Q6H PRN PO 06/12/17 15:45 06/15/17 21:48 (Ativan Inj) 1 mg Q6H PRN IM 06/12/17 15:45 (Tylenol) 650 mg Q4H PRN PO 06/12/17 15:45 06/24/17 17:30 (Milk Of Magnesia Liq) 30 ml DAILY PRN PO 06/12/17 15:45 (Mag-Al Plus Susp Liq) 30 ml Q6H PRN PO 06/12/17 15:45 (Zovirax) 800 mg DAILY PO 06/12/17 16:00 06/27/17 08:31 (Nizoral 2% Cream) 1 applic BID TOPICAL 06/12/17 21:00 06/27/17 08:31 (SEROquel) 600 mg HS PO 06/12/17 21:00 06/26/17 21:53 (Pill Splitter) 1 ea UNSCH PRN OTHER 06/12/17 16:30 Patient Own Medication PT OWN MED: ODEFSEY... DAILY PO 06/13/17 09:00 Future Hold Patient Own Medication PT OWN MED: CALCIUM CARBONA... BID PO 06/12/17 21:00 Future Hold (Catapres) 0.2 mg Q6H PRN PO 06/15/17 12:30 06/21/17 17:22 (Toprol Xl) 100 mg DAILY PO 06/16/17 09:00 06/27/17 08:31 (SEROquel) 100 mg BID@,12 PO 06/18/17 12:00 06/27/17 08:31 (Prinivil) 20 mg DAILY PO 06/20/17 09:00 06/27/17 08:31 (Procardia Xl) 90 mg DAILY PO 06/20/17 09:00 06/27/17 08:31 (Apresoline) 25 mg Q8HR PO 06/21/17 22:00 06/27/17 06:14 A/P Problem List: (1) Hypertension ICD Code: I10 - Essential (primary) hypertension Status: Acute (2) HIV (human immunodeficiency virus infection) ICD Code: Z21 - Asymptomatic human immunodeficiency virus [HIV] infection status Status: Acute Assessment and Plan Patient is a 61-year-old male with primary medical history of HTN, HIV, bipolar , schizoaffective disorder who came into the hospital under [place] act for psychiatric evaluation. Per review of records [place] act report patient has absent temporal lobe syndrome, bipolar disorder, schizophrenia who has been having weight loss and poor hygiene sleeping in the park and restrooms. Patient has been combative to his caregiver. He is now admitted to the inpatient psychiatry unit for further evaluation. Consulted for medical management. Bipolar disorder, schizophrenia Neuropsychology consult appreciated. - Managed by psychiatry team HTN, uncontrolled. Patient remains hypertensive despite restarting of home BP meds and prn Clonidine. Nephrology consult appreciated. Renal ultrasound showed: Elevated velocities in the proximal and mid right renal artery; Nonvisualization of the left mid renal artery with elevated velocity in the distal portion of the renal artery; Echogenic kidneys characteristic of medical renal disease. There is no hydronephrosis. - Continue Toprol XL 100 mg daily, increase lisinopril to 20 mg qd. Increase lisinopril as needed. - Continue Nifedipine XL, increased to 90 mg daily by nephrology. Hydralazine 25 mg q8h also added. - BP overall improved, continue to monitor - Continue prn Clonidine 0.2 mg - Urine catecholamines, metanephrines and vanilylmandelic acid reviewed Noncompliance, HIV Hep C, history - Continue acyclovir 800 mg daily, Odefsey 1 tab daily - Counseled for compliance U tox positive for marijuana use. DVT prop ambulatory Problem Qualifiers (1) Hypertension: Qualified Codes: I10 - Essential (primary) hypertension Tammy Callahan Jun 27, 2017 09:07
--- NOTE | 2017-06-27 14:43 | HHI.PYPN ---
Subjective Remarks Patient seen for follow-up, chart reviewed. Discussion history of reported that patient has and pleasant but disorganized. Patient found eating lunch and coronary was able to interact with interview today. Patient states that he is feeling "excellent", spends time talking about his past relationship with continues with pentecostal preoccupation stating "Logan is guiding me". Patient noted to have tangentiality, denies any perceptual disturbances but does state that God talks to him. Patient denies any physical complaints at this time. Review of Systems Except as stated in HPI: all other systems reviewed are Neg Mental Status Examination Appearance: Appropriate Consciousness: Alert Orientation: Person, Place Motor Activity: Normal gait Speech: Unremarkable Language: Perseveration Fund of Knowledge: Adequate Attention and Concentration: Inadequate Memory: Impaired Mood: Appropriate, Other Affect: Appropriate Thought Process & Associations: Loose associations, Tangential Thought Content: Bizarre thinking, Hallucinations, Delusional Hallucination Type: Auditory Delusion Type: Paranoid, Other (pentecostal) Suicidal Ideation: No Suicidal Plan: No Suicidal Intention: No Homicidal Ideation: No Homicidal Plan: No Homicidal Intention: No Insight: Poor Judgment: Poor Results Vitals/IOs Vital Signs Date Time Temp Pulse Resp B/P (MAP) Pulse Ox O2 Delivery O2 Flow Rate FiO2 06/27/17 06:03 97.3 110 18 133/68 (89) 98 Assessment & Plan Problem List: (1) Psychotic disorder ICD Codes: F29 - Unspecified psychosis not due to a substance or known physiological condition Assessment & Plan Patient at this time continues to be religiously preoccupied, aggressive behaviors, very poor insight into his illness, continues to have fixed pentecostal delusions despite treatment. Due to patient's symptomatology as well as history of TBI patient's judgment is poor and limited capability to make sound decisions involving his well-being which he requires referral to residential is is unlikely to be able to do well independently as evidenced by his recent circumstances when he had left the home. Continue current treatment. Continue recommendations as per primary medical team. Discharge planning in progress Justification for Cont. Inpt. At risk for further decompensation if at lower level of care Discharge Planning Patient to be transferred to residential once one is acquired. Jhoan Tabares MD Jun 27, 2017 14:43
[2017-06-27 16:46] VITALS: BP 139/77; PULSE 99; RESP 18; TEMP 98.4; O2SAT 98
[2017-06-27] MEDS: QUEtiapine FUMARATE 300 MG TAB PO SCH (21:15)
[2017-06-28 05:34] VITALS: BP 150/85; PULSE 90; RESP 18; TEMP 98.1; O2SAT 98
[2017-06-28] MEDS: hydrALAZINE HCL 25 MG TAB PO SCH ×3 (05:53→21:33)
[2017-06-28] MEDS: METOPROLOL SUCCINATE 50 MG EXTENDED RELEASE TAB PO SCH (08:58)
[2017-06-28] MEDS: NIFEdipine 90 MG SUSTAINED RELEASE TAB PO SCH (08:58)
[2017-06-28] MEDS: ACYCLOVIR 800 MG TAB PO SCH (08:58)
[2017-06-28] MEDS: QUEtiapine FUMARATE 100 MG TAB PO SCH ×2 (08:58→12:00)
[2017-06-28] MEDS: LISINOPRIL 20 MG TAB PO SCH (08:58)
[2017-06-28] MEDS: KETOCONAZOLE 2% CREAM 15 GM TOPICAL SCH ×2 (09:00→21:00)
--- NOTE | 2017-06-28 09:52 | PD.TTN ---
Patient Problems 1. Discharge planning 2. Medication compliance 3. Knowledge deficit 4. Lack of coping skills Progress Toward Goals Provider Present: Dr. Binu Tabares Provider Input: 06/27/2017 Patient will require placement in an Assisted Living Facility. He has a histroy of TBI, and fixed delusions that are anabaptist nature. 06/20/2017; patient is at the highest dosage of medication and might need to have an additional med added to level off his mood/behavior. Patient is new to unit and will be starting on a medication regiment. Will monitor progress of patient throughout the week. 06/18/2017 - Dr. Tabares reports the patient would like placement in an [facility]. 06/25 - Patient will continue to be looked for in regards to placement. Not behavioral issues on the unit. Nurse(s) Present: TONY Lara Nurse(s) Input: 06/20/2017; Patient is taking his medication, eating meals; however patient displays manic behavior, up doing the night hours with limited sleep. 06/25 patient is noted to have no behavioral issues on the unit and has been compliant with medications. denies side effects Psychiatric Counselors Present: Simin Trejo [facility], Linda Chandler [facility] Psych Therapist Input: 06/27/2017 Counselor will continue to search for approparit placement for this patient, 06/20/2017 Counselor will begin the process for finding appropriate placement Counselor will be in contact with family memebers to recieve collateral information in regards to patient's progress. 06-18-2017 - Counselor has faxed patient's packet to [facility] for admissions review. Counselor called [facility] and there are no beds available at this time. 06/25 patient is cooperative and calm on the unit and counselor will look for placement. Patient does not socialize with peers but is pleasant. Group Spec/RT/OT/SCHMIDT Present: DEE Bazzi, BRAYAN Restrepo, BRAYAN Silva Group Spec/RT/OT/SCHMIDT Input: 06/27/2017 Patient refuses most groups, although he will occasionally attemd fresh air and snack time. 06/20/2017: Attends most groups, very cooperate, very hyperverbal Patient is new to unit and has not attend groups yet. 06-18-2017 - Patient attends select groups and his behavior is appropriate. Discharge Plan SMA Patient will be discharged to an appropriate [facility] when accepted. Documentation Scribe: DANITZA Hitchcock Date Resolved: Jun 27, 2017 Simin Trejo Jun 28, 2017 09:52
--- NOTE | 2017-06-28 14:21 | HHI.PYPN ---
Subjective Remarks Patient seen for follow-up, chart reviewed. Patient continues to be religiously preoccupied, continues with bizarre delusions. Patient states that he is feeling "excellent", states having spoken to his brother Suhail about how his other brother is getting cancer treatment. Patient states that he continues with the same plan that Logan has set out for him. Patient noted to have some loosening associations during interview. He denies having auditory visual hallucinations or SI, HI. Review of Systems Except as stated in HPI: all other systems reviewed are Neg Mental Status Examination Appearance: Appropriate Consciousness: Alert Orientation: Person, Place Motor Activity: Normal gait Speech: Unremarkable Language: Perseveration Fund of Knowledge: Adequate Attention and Concentration: Inadequate Memory: Impaired Mood: Appropriate, Other Affect: Appropriate Thought Process & Associations: Loose associations, Tangential Thought Content: Bizarre thinking, Hallucinations, Delusional Hallucination Type: Auditory Delusion Type: Paranoid, Other (religion) Suicidal Ideation: No Suicidal Plan: No Suicidal Intention: No Homicidal Ideation: No Homicidal Plan: No Homicidal Intention: No Insight: Poor Judgment: Poor Results Vitals/IOs Vital Signs Date Time Temp Pulse Resp B/P (MAP) Pulse Ox O2 Delivery O2 Flow Rate FiO2 06/28/17 05:34 98.1 90 18 150/85 (106) 98 Intake and Output 06/28/17 06/28/17 06/29/17 08:00 16:00 00:00 Intake Total 360 ml Balance 360 ml Assessment & Plan Problem List: (1) Psychotic disorder ICD Codes: F29 - Unspecified psychosis not due to a substance or known physiological condition Assessment & Plan Patient at this time continues to be religiously preoccupied, although denies auditory hallucinations does admit to God speaking to him. Patient has a physical with this time tolerate medications well blood pressure better controlled now with current regimen but continues to be followed by medical team. Continue current treatment for now. [place] to [place] [facility] [place] due to patient's current impaired cognitive functioning, persistent religion delusions and poor insight and judgment. Discharge planning in progress Justification for Cont. Inpt. At risk for further decompensation if at lower level of care Discharge Planning Patient to be accepted to a [place] [facility] and awaiting acceptance. Jhoan Tabares MD Jun 28, 2017 14:21
--- NOTE | 2017-06-28 15:03 | HHI.PR ---
Subjective Remarks Follow up on patient with HTN. Patient seen and examined. Patient says he feels "excellent". Patient states he was extremely compliant with his HIV medication prior to his admission into the hospital. He also with Dr. Poon who he saw the day of his admission. His last CD4 count was around 400. He denies any fever or chills. Denies any headache, cough, nausea, vomiting, chest pain or abdominal pain. Objective Vitals Vital Signs Date Time Temp Pulse Resp B/P (MAP) Pulse Ox O2 Delivery O2 Flow Rate FiO2 06/28/17 05:34 98.1 90 18 150/85 (106) 98 06/27/17 16:46 98.4 99 18 139/77 (97) 98 I/O 06/27/17 06/27/17 06/27/17 06/28/17 06/28/17 06/28/17 07:00 15:00 23:00 07:00 15:00 23:00 Intake Total 360 ml Balance 360 ml Intake Oral 360 ml Result Diagram: 06/25/17164706/25/[id number] Objective Remarks GENERAL: Well-nourished, well-developed patient in NAD. Awake and alert. Sitting in day room. SKIN: Warm and dry. HEAD: Normocephalic. Atraumatic. EYES: EOMI. No scleral icterus. No injection or drainage. ENT: No nasal bleeding or discharge. Mucous membranes pink and moist. NECK: Trachea midline. CARDIOVASCULAR: Regular rate and rhythm. S1, S2 noted. No murmur appreciated. RESPIRATORY: Nonlabored. Clear to auscultation. Breath sounds equal bilaterally. GASTROINTESTINAL: Abdomen soft, non-tender, nondistended. Normoactive bowel sounds x4. MUSCULOSKELETAL: No obvious deformities. Extremities without clubbing, cyanosis , or edema. NEUROLOGICAL: Awake and alert. Able to move all extremities spontaneously. Nonfocal. Normal speech. PSYCHIATRIC: Calm, pleasant. Appropriate mood, inappropriate judgment and insight. Procedures NONE Medications and IVs Current Medications Medications (Trade) Dose Ordered Sig/Zina Route Start Time Stop Time Status Last Admin (Ativan) 1 mg Q6H PRN PO 06/12/17 15:45 06/15/17 21:48 (Ativan Inj) 1 mg Q6H PRN IM 06/12/17 15:45 (Tylenol) 650 mg Q4H PRN PO 06/12/17 15:45 06/24/17 17:30 (Milk Of Magnesia Liq) 30 ml DAILY PRN PO 06/12/17 15:45 (Mag-Al Plus Susp Liq) 30 ml Q6H PRN PO 06/12/17 15:45 (Zovirax) 800 mg DAILY PO 06/12/17 16:00 06/28/17 08:58 (Nizoral 2% Cream) 1 applic BID TOPICAL 06/12/17 21:00 06/28/17 09:00 (SEROquel) 600 mg HS PO 06/12/17 21:00 06/27/17 21:15 (Pill Splitter) 1 ea UNSCH PRN OTHER 06/12/17 16:30 Patient Own Medication PT OWN MED: ODEFSEY... DAILY PO 06/13/17 09:00 Future Hold Patient Own Medication PT OWN MED: CALCIUM CARBONA... BID PO 06/12/17 21:00 Future Hold (Catapres) 0.2 mg Q6H PRN PO 06/15/17 12:30 06/21/17 17:22 (Toprol Xl) 100 mg DAILY PO 06/16/17 09:00 06/28/17 08:58 (SEROquel) 100 mg BID@09,12 PO 06/18/17 12:00 06/28/17 12:00 (Prinivil) 20 mg DAILY PO 06/20/17 09:00 06/28/17 08:58 (Procardia Xl) 90 mg DAILY PO 06/20/17 09:00 06/28/17 08:58 (Apresoline) 25 mg Q8HR PO 06/21/17 22:00 06/28/17 12:55 A/P Problem List: (1) Hypertension ICD Code: I10 - Essential (primary) hypertension Status: Acute (2) HIV (human immunodeficiency virus infection) ICD Code: Z21 - Asymptomatic human immunodeficiency virus [HIV] infection status Status: Acute Assessment and Plan Patient is a 61-year-old male with primary medical history of HTN, HIV, bipolar , schizoaffective disorder who came into the hospital under [place] act for psychiatric evaluation. Per review of records [place] act report patient has absent temporal lobe syndrome, bipolar disorder, schizophrenia who has been having weight loss and poor hygiene sleeping in the park and restrooms. Patient has been combative to his caregiver. He is now admitted to the inpatient psychiatry unit for further evaluation. Consulted for medical management. Bipolar disorder, schizophrenia Neuropsychology consult appreciated. - Managed by psychiatry team HTN, uncontrolled. Patient remains hypertensive despite restarting of home BP meds and prn Clonidine. Nephrology consult appreciated. Renal ultrasound showed: Elevated velocities in the proximal and mid right renal artery; Nonvisualization of the left mid renal artery with elevated velocity in the distal portion of the renal artery; Echogenic kidneys characteristic of medical renal disease. There is no hydronephrosis. - Continue Toprol XL 100 mg daily, increase lisinopril to 20 mg qd. Increase lisinopril as needed. - Continue Nifedipine XL, increased to 90 mg daily by nephrology. Hydralazine 25 mg q8h also added. - BP overall improved, continue to monitor - Continue prn Clonidine 0.2 mg - Urine catecholamines, metanephrines and vanilylmandelic acid reviewed HIV Hep C, history - Continue acyclovir 800 mg daily - patient on Odefsey 1 tab daily for HIV but has not received since this admission due to no availability at our hospital. Patient does have 21 days of the medication with him however it is in a multipack with other medications. Discussed with Kimberlee of pharmacy who states they will not open the multipack to retrieve the Odefsey unless patient is on all of the mediations in the multipack (which he is not). Would continue patient on his regular HIV medication of Odefsey daily. As medication not available at our facility, would recommend ID consultation for further recommendations. U tox positive for marijuana use. DVT prop ambulatory Discussed with patient, Wan JIMENEZ and Dr. Malagon Patient stable from hospitalist standpoint. Will sign off for now. Please reconsult if needed. Problem Qualifiers (1) Hypertension: Qualified Codes: I10 - Essential (primary) hypertension Tammy Callahan Jun 28, 2017 15:03
[2017-06-28 16:36] VITALS: BP 142/82; PULSE 110; RESP 17; TEMP 95.8; O2SAT 99
[2017-06-28] MEDS: QUEtiapine FUMARATE 300 MG TAB PO SCH (21:33)
[2017-06-29 05:14] VITALS: BP 131/79; PULSE 92; RESP 16; TEMP 97.8; O2SAT 97
[2017-06-29] MEDS: hydrALAZINE HCL 25 MG TAB PO SCH ×3 (06:13→21:37)
[2017-06-29] MEDS: ACYCLOVIR 800 MG TAB PO SCH (08:46)
[2017-06-29] MEDS: QUEtiapine FUMARATE 100 MG TAB PO SCH ×2 (08:46→12:57)
[2017-06-29] MEDS: LISINOPRIL 20 MG TAB PO SCH (08:46)
[2017-06-29] MEDS: METOPROLOL SUCCINATE 50 MG EXTENDED RELEASE TAB PO SCH (08:47)
[2017-06-29] MEDS: NIFEdipine 90 MG SUSTAINED RELEASE TAB PO SCH (08:47)
[2017-06-29] MEDS: KETOCONAZOLE 2% CREAM 15 GM TOPICAL SCH ×2 (08:48→21:38)
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
[2017-06-29 12:58] VITALS: BP 126/71; PULSE 89
[2017-06-29 17:29] VITALS: BP 122/65; PULSE 99; RESP 16; TEMP 93.6; O2SAT 100
[2017-06-29] MEDS: QUEtiapine FUMARATE 300 MG TAB PO SCH (21:38)
[2017-06-30 05:50] VITALS: BP 124/71; PULSE 85; RESP 17; TEMP 98.2; O2SAT 97
[2017-06-30] MEDS: hydrALAZINE HCL 25 MG TAB PO SCH ×3 (06:06→21:01)
[2017-06-30 08:19] VITALS: BP 130/76
[2017-06-30] MEDS: QUEtiapine FUMARATE 100 MG TAB PO SCH ×2 (08:32→12:10)
[2017-06-30] MEDS: NIFEdipine 90 MG SUSTAINED RELEASE TAB PO SCH (08:32)
[2017-06-30] MEDS: LISINOPRIL 20 MG TAB PO SCH (08:33)
[2017-06-30] MEDS: ACYCLOVIR 800 MG TAB PO SCH (08:33)
[2017-06-30] MEDS: METOPROLOL SUCCINATE 50 MG EXTENDED RELEASE TAB PO SCH (08:34)
[2017-06-30] MEDS: KETOCONAZOLE 2% CREAM 15 GM TOPICAL SCH ×2 (08:37→21:00)
--- NOTE | 2017-06-30 14:50 | HHI.PYPN ---
Subjective Remarks Patient was seen and case discussed with nursing. Patient remains floridly psychotic with bizarre behavior. Continues to practice ballet throughout the day. He has bizarre adventism beliefs that Satan is good and this theology is got it wrong. He then relates this thought to Ning fleming. Mental Status Examination Appearance: Appropriate Consciousness: Alert Orientation: Person, Place Motor Activity: Normal gait Speech: Unremarkable Language: Perseveration Fund of Knowledge: Adequate Attention and Concentration: Inadequate Memory: Impaired Mood: Appropriate, Other Affect: Appropriate Thought Process & Associations: Loose associations, Tangential Thought Content: Bizarre thinking, Hallucinations, Delusional Hallucination Type: Auditory Delusion Type: Bizarre, Other (adventism) Suicidal Ideation: No Suicidal Plan: No Suicidal Intention: No Homicidal Ideation: No Homicidal Plan: No Homicidal Intention: No Insight: Poor Judgment: Poor Results Vitals/IOs Vital Signs Date Time Temp Pulse Resp B/P (MAP) Pulse Ox O2 Delivery O2 Flow Rate FiO2 06/30/17 08:19 130/76 (94) 06/30/17 05:50 98.2 85 17 97 Intake and Output 06/30/17 06/30/17 07/01/17 08:00 16:00 00:00 Intake Total 480 ml 480 ml Balance 480 ml 480 ml Assessment & Plan Problem List: (1) Psychotic disorder ICD Codes: F29 - Unspecified psychosis not due to a substance or known physiological condition Assessment & Plan Continue current treatment plan Justification for Cont. Inpt. Patient would decompensate in a less restrictive setting Manny Camacho DO Jun 30, 2017 14:50
[2017-06-30 18:24] VITALS: BP 150/83; PULSE 102; RESP 20; TEMP 96.9; O2SAT 99
[2017-06-30] MEDS: QUEtiapine FUMARATE 300 MG TAB PO SCH (21:01)
[2017-07-01 06:00] VITALS: BP 147/90; PULSE 118; RESP 20; TEMP 97.1; O2SAT 98
[2017-07-01] MEDS: hydrALAZINE HCL 25 MG TAB PO SCH ×3 (06:06→22:00)
[2017-07-01] MEDS: NIFEdipine 90 MG SUSTAINED RELEASE TAB PO SCH (08:31)
[2017-07-01] MEDS: ACYCLOVIR 800 MG TAB PO SCH (08:31)
[2017-07-01] MEDS: QUEtiapine FUMARATE 100 MG TAB PO SCH ×2 (08:32→12:08)
[2017-07-01] MEDS: LISINOPRIL 20 MG TAB PO SCH (08:32)
[2017-07-01] MEDS: METOPROLOL SUCCINATE 50 MG EXTENDED RELEASE TAB PO SCH (08:32)
[2017-07-01] MEDS: KETOCONAZOLE 2% CREAM 15 GM TOPICAL SCH ×2 (08:35→21:00)
--- NOTE | 2017-07-01 11:45 | HHI.PYPN ---
Subjective Remarks Patient remains floridly psychotic. Remains religiously preoccupied various bizarre delusions. 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 Eating and sleeping well. Behaving well on the unit Mental Status Examination Appearance: Appropriate Consciousness: Alert Orientation: Person, Place Motor Activity: Normal gait Speech: Unremarkable Language: Perseveration Fund of Knowledge: Adequate Attention and Concentration: Inadequate Memory: Impaired Mood: Appropriate, Other Affect: Appropriate Thought Process & Associations: Loose associations, Tangential Thought Content: Bizarre thinking, Hallucinations, Delusional Hallucination Type: Auditory Delusion Type: Bizarre, Other (mormon) Suicidal Ideation: No Suicidal Plan: No Suicidal Intention: No Homicidal Ideation: No Homicidal Plan: No Homicidal Intention: No Insight: Poor Judgment: Poor Results Vitals/IOs Vital Signs Date Time Temp Pulse Resp B/P (MAP) Pulse Ox O2 Delivery O2 Flow Rate FiO2 07/01/17 06:00 97.1 118 20 147/90 (109) 98 Intake and Output 07/01/17 07/01/17 07/02/17 08:00 16:00 00:00 Intake Total 0 ml Balance 0 ml Assessment & Plan Problem List: (1) Psychotic disorder ICD Codes: F29 - Unspecified psychosis not due to a substance or known physiological condition Assessment & Plan Continue current treatment plan Justification for Cont. Inpt. Patient will decompensate in a less restrictive setting Manny Camacho DO Jul 01, 2017 11:45
[2017-07-01 18:30] VITALS: BP 139/64; PULSE 68; RESP 18; TEMP 98; O2SAT 98
[2017-07-01] MEDS: QUEtiapine FUMARATE 300 MG TAB PO SCH (21:02)
[2017-07-01 22:31] VITALS: BP 104/57
[2017-07-02] MEDS: hydrALAZINE HCL 25 MG TAB PO SCH ×3 (05:48→21:18)
[2017-07-02 06:07] VITALS: BP 142/84; PULSE 74; RESP 17; TEMP 97.9; O2SAT 99
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
[2017-07-02] MEDS: QUEtiapine FUMARATE 100 MG TAB PO SCH ×2 (10:10→13:05)
[2017-07-02] MEDS: ACYCLOVIR 800 MG TAB PO SCH (10:10)
[2017-07-02] MEDS: LISINOPRIL 20 MG TAB PO SCH (10:11)
[2017-07-02] MEDS: NIFEdipine 90 MG SUSTAINED RELEASE TAB PO SCH (10:11)
[2017-07-02] MEDS: METOPROLOL SUCCINATE 50 MG EXTENDED RELEASE TAB PO SCH (10:11)
[2017-07-02] MEDS: KETOCONAZOLE 2% CREAM 15 GM TOPICAL SCH ×2 (10:12→21:00)
--- NOTE | 2017-07-02 14:10 | PD.TTN ---
Patient Problems 1. Discharge planning 2. Medication compliance 3. Knowledge deficit 4. Lack of coping skills Progress Toward Goals Provider Present: Dr. Binu Tabares Provider Input: 07/02/17 Patient remains psychotic and delusional. 06/27/2017 Patient will require placement in an Assisted Living Facility. He has a histroy of TBI, and fixed delusions that are sabianist nature. 06/20/2017; patient is at the highest dosage of medication and might need to have an additional med added to level off his mood/behavior. Patient is new to unit and will be starting on a medication regiment. Will monitor progress of patient throughout the week. 06/18/2017 - Dr. Tabares reports the patient would like placement in an [facility]. 06/25 - Patient will continue to be looked for in regards to placement. Not behavioral issues on the unit. Nurse(s) Present: TONY Lara Nurse(s) Input: 06/20/2017; Patient is taking his medication, eating meals; however patient displays manic behavior, up doing the night hours with limited sleep. 06/25 patient is noted to have no behavioral issues on the unit and has been compliant with medications. denies side effects Psychiatric Counselors Present: Simin Trejo [facility], Linda Chandler [facility] Psych Therapist Input: 07/02/17 Patient remains medication compliant and continues to isolate. He does not saocialize with peers or staff. 06/27/2017 Counselor will continue to search for approparit placement for this patient, 06/20/2017 Counselor will begin the process for finding appropriate placement Counselor will be in contact with family memebers to recieve collateral information in regards to patient's progress. 06-18-2017 - Counselor has faxed patient's packet to [facility] for admissions review. Counselor called [facility] and there are no beds available at this time. 06/25 patient is cooperative and calm on the unit and counselor will look for placement. Patient does not socialize with peers but is pleasant. Group Spec/RT/OT/SCHMIDT Present: Bel Velázquez, DEE, BRAYAN Restrepo, BRAYAN Silva Group Spec/RT/OT/SCHMIDT Input: 07/02/17 Patient isolates to his room and the only group he has attended so far is coffee shop. 06/27/2017 Patient refuses most groups, although he will occasionally attemd fresh air and snack time. 06/20/2017: Attends most groups, very cooperate, very hyperverbal Patient is new to unit and has not attend groups yet. 06-18-2017 - Patient attends select groups and his behavior is appropriate. Discharge Plan SMA Patient will be discharged to an appropriate [facility] when accepted. Documentation Scribe: DANITZA Hitchcock Date Resolved: Jul 02, 2017 Simin Trejo Jul 02, 2017 14:10
[2017-07-02 17:49] VITALS: BP 154/89; PULSE 97; RESP 18; TEMP 98.5; O2SAT 98
[2017-07-02] MEDS: QUEtiapine FUMARATE 300 MG TAB PO SCH (21:17)
[2017-07-03] MEDS: hydrALAZINE HCL 25 MG TAB PO SCH ×3 (06:06→21:12)
[2017-07-03 06:07] VITALS: BP 121/66; PULSE 94; RESP 17; TEMP 98.4; O2SAT 99
[2017-07-03] MEDS: KETOCONAZOLE 2% CREAM 15 GM TOPICAL SCH ×2 (08:42→21:00)
[2017-07-03] MEDS: QUEtiapine FUMARATE 100 MG TAB PO SCH ×2 (08:42→11:38)
[2017-07-03] MEDS: ACYCLOVIR 800 MG TAB PO SCH (08:42)
[2017-07-03] MEDS: LISINOPRIL 20 MG TAB PO SCH (08:42)
[2017-07-03] MEDS: METOPROLOL SUCCINATE 50 MG EXTENDED RELEASE TAB PO SCH (08:42)
[2017-07-03] MEDS: NIFEdipine 90 MG SUSTAINED RELEASE TAB PO SCH (08:42)
--- NOTE | 2017-07-03 10:42 | HHI.PYPN ---
Subjective Remarks Patient seen for follow-up, chart reviewed. Patient was found in the room interacting with other peers, cooperative interview today. Patient states that he has been feeling "excellent" states that he had received a call from his stepmother received the news that his brother does not have lung cancer when she was happy about. Patient stills continue with denominational preoccupation referring to that being that he calls Mr. carrasco stating that has been following him to try to keep him from his mission that Logan for him. Patient continues to deny any perceptual disturbances. Review of Systems Except as stated in HPI: all other systems reviewed are Neg Mental Status Examination Appearance: Appropriate Consciousness: Alert Orientation: Person, Place Motor Activity: Normal gait Speech: Unremarkable Language: Perseveration Fund of Knowledge: Adequate Attention and Concentration: Inadequate Memory: Impaired Mood: Appropriate, Other Affect: Appropriate Thought Process & Associations: Loose associations, Tangential Thought Content: Bizarre thinking, Hallucinations, Delusional (religiously preoccupied) Hallucination Type: Auditory (appears internally preoccupied at times but the patient denies any auditory hallucinations) Delusion Type: Bizarre, Other (denominational) Suicidal Ideation: No Suicidal Plan: No Suicidal Intention: No Homicidal Ideation: No Homicidal Plan: No Homicidal Intention: No Insight: Poor Judgment: Poor Results Vitals/IOs Vital Signs Date Time Temp Pulse Resp B/P (MAP) Pulse Ox O2 Delivery O2 Flow Rate FiO2 07/03/17 06:07 98.4 94 17 121/66 (84) 99 Assessment & Plan Problem List: (1) Psychotic disorder ICD Codes: F29 - Unspecified psychosis not due to a substance or known physiological condition Assessment & Plan Patient with no behavioral disturbances Y status assessment admission, his recall cooperative with staff. Patient continues to be internally preoccupied at times as well as prominent persistent denominational delusions. Continue current treatment. Patient awaiting placement into nursing facility. Discharge planning in progress Justification for Cont. Inpt. At risk for further decompensation if at lower level of care. Discharge Planning Patient to be discharged to nursing facility once 1 is acquired Jhoan Tabares MD Jul 03, 2017 10:42
[2017-07-03 18:23] VITALS: BP 124/67; PULSE 94; RESP 16; TEMP 97.5; O2SAT 98
[2017-07-03] MEDS: QUEtiapine FUMARATE 300 MG TAB PO SCH (21:12)
[2017-07-04 06:00] VITALS: BP 111/65; PULSE 73; RESP 17; TEMP 98; O2SAT 98
[2017-07-04] MEDS: hydrALAZINE HCL 25 MG TAB PO SCH ×3 (06:00→21:45)
[2017-07-04] MEDS: NIFEdipine 90 MG SUSTAINED RELEASE TAB PO SCH (09:00)
[2017-07-04] MEDS: KETOCONAZOLE 2% CREAM 15 GM TOPICAL SCH (09:00)
[2017-07-04] MEDS: ACYCLOVIR 800 MG TAB PO SCH (09:08)
[2017-07-04] MEDS: LISINOPRIL 20 MG TAB PO SCH (09:09)
[2017-07-04] MEDS: QUEtiapine FUMARATE 100 MG TAB PO SCH ×2 (09:09→11:43)
[2017-07-04] MEDS: METOPROLOL SUCCINATE 50 MG EXTENDED RELEASE TAB PO SCH (09:09)
--- NOTE | 2017-07-04 13:55 | PD.TTN ---
Patient Problems 1. Discharge planning 2. Medication compliance 3. Knowledge deficit 4. Lack of coping skills Progress Toward Goals Provider Present: Dr. Binu Tabares Provider Input: 07/02/17 Patient remains psychotic and delusional. 06/27/2017 Patient will require placement in an Assisted Living Facility. He has a histroy of TBI, and fixed delusions that are pentecostal nature. 06/20/2017; patient is at the highest dosage of medication and might need to have an additional med added to level off his mood/behavior. Patient is new to unit and will be starting on a medication regiment. Will monitor progress of patient throughout the week. 06/18/2017 - Dr. Tabares reports the patient would like placement in an [facility]. 06/25 - Patient will continue to be looked for in regards to placement. Not behavioral issues on the unit. 07/04/17 Patient continues to meet criteria. Patient has court tomorrow Nurse(s) Present: TONY Lara Nurse(s) Input: 06/20/2017; Patient is taking his medication, eating meals; however patient displays manic behavior, up doing the night hours with limited sleep. 06/25 patient is noted to have no behavioral issues on the unit and has been compliant with medications. denies side effects 07/04/17 Patient's nurse Sara reports patient is religioulsy preoccupied, continues to practice ballet exercies. Medication compliant. Patient is calm and cooperative. Psychiatric Counselors Present: [facility], Simin Tre[facility], Linda Chandler [facility] Psych Therapist Input: 07/02/17 Patient remains medication compliant and continues to isolate. He does not saocialize with peers or staff. 06/27/2017 Counselor will continue to search for approparit placement for this patient, 06/20/2017 Counselor will begin the process for finding appropriate placement Counselor will be in contact with family memebers to recieve collateral information in regards to patient's progress. 06-18-2017 - Counselor has faxed patient's packet to [facility] for [facility] review. Counselor called [facility] and there are no beds available at this time. 06/25 patient is cooperative and calm on the unit and counselor will look for placement. Patient does not socialize with peers but is pleasant. 07/04/17 Patient is medication compliant. Patient presents calm, cooperative, affect appropriate. patient's speech is clear, and organized. Patient does present religiously preoccupied. Patient isolates, on unit Group Spec/RT/OT/SCHMIDT Present: Bel Velázquez, GPS, Teresa Dexter, SCHMIDT, Zen Gallego, SCHMIDT Group Spec/RT/OT/SCHMIDT Input: 07/02/17 Patient isolates to his room and the only group he has attended so far is coffee shop. 06/27/2017 Patient refuses most groups, although he will occasionally attemd fresh air and snack time. 06/20/2017: Attends most groups, very cooperate, very hyperverbal Patient is new to unit and has not attend groups yet. 06-18-2017 - Patient attends select groups and his behavior is appropriate. 07/04/17 Patient attends exercise occasionally Discharge Plan SMA Patient will be discharged to an appropriate SENIOR CARE when accepted. Documentation Scribe: Simin Trejo [facility] Date Resolved: Jul 02, 2017 Marbella BrittonTevin Jul 04, 2017 13:55
--- NOTE | 2017-07-04 15:48 | HHI.PYPN ---
Subjective Remarks Patient seen for follow-up, chart reviewed. Patient was found in day room, cooperative interview today. Patient states that Satjermaine is in his right foot and that Logan put in there he continues to endorse that being name to "fireball " was arrested 2 weeks ago. Patient states that there are spiritual companions with him to talk to him but time good things. Recent reports tolerating medications well denies any adverse drug reactions. At this time patient denies SI, HI, continues with auditory hallucinations but no visual hallucinations, and continues with synagogue preoccupation and delusions. Review of Systems Except as stated in HPI: all other systems reviewed are Neg Mental Status Examination Appearance: Appropriate Consciousness: Alert Orientation: Person, Place Motor Activity: Normal gait Speech: Unremarkable Language: Perseveration Fund of Knowledge: Adequate Attention and Concentration: Inadequate Memory: Impaired Mood: Appropriate, Other Affect: Appropriate Thought Process & Associations: Loose associations, Tangential Thought Content: Bizarre thinking, Hallucinations, Delusional (religiously preoccupied) Hallucination Type: Auditory (appears internally preoccupied at times but the patient denies any auditory hallucinations) Delusion Type: Bizarre, Other (synagogue) Suicidal Ideation: No Suicidal Plan: No Suicidal Intention: No Homicidal Ideation: No Homicidal Plan: No Homicidal Intention: No Insight: Poor Judgment: Poor Results Vitals/IOs Vital Signs Date Time Temp Pulse Resp B/P (MAP) Pulse Ox O2 Delivery O2 Flow Rate FiO2 07/04/17 06:00 98.0 73 17 111/65 (80) 98 Assessment & Plan Problem List: (1) Psychotic disorder ICD Codes: F29 - Unspecified psychosis not due to a substance or known physiological condition Assessment & Plan Patient with no behavioral dyscontrol since admission, compliant with medications, cooperative with staff. Patient continues with delusions. Patient and delusions along with intermittent auditory hallucinations. Continue current treatment for now. Patient continues to await placement to a nursing facility. Discharge planning in progress Justification for Cont. Inpt. At risk for further decompensation if at lower level of care Discharge Planning Patient was discharged to a nursing facility once 1 is acquired. Jhoan Tabares MD Jul 04, 2017 15:48
[2017-07-04 18:49] VITALS: BP 120/69; PULSE 97; RESP 18; TEMP 97.9; O2SAT 99
[2017-07-04] MEDS: QUEtiapine FUMARATE 300 MG TAB PO SCH (21:45)
[2017-07-05 06:00] VITALS: BP 120/73; PULSE 89; RESP 16; TEMP 97.9; O2SAT 97
[2017-07-05] MEDS: hydrALAZINE HCL 25 MG TAB PO SCH ×3 (06:00→21:36)
[2017-07-05] MEDS: NIFEdipine 90 MG SUSTAINED RELEASE TAB PO SCH (09:00)
[2017-07-05] MEDS: LISINOPRIL 20 MG TAB PO SCH (09:05)
[2017-07-05] MEDS: METOPROLOL SUCCINATE 50 MG EXTENDED RELEASE TAB PO SCH (09:05)
[2017-07-05] MEDS: ACYCLOVIR 800 MG TAB PO SCH (09:06)
[2017-07-05] MEDS: QUEtiapine FUMARATE 100 MG TAB PO SCH ×2 (09:06→12:56)
--- NOTE | 2017-07-05 11:48 | HHI.PYPN ---
Subjective Remarks Patient seen for follow-up, chart reviewed. Patient presented to mental health Court to a rehearing as patient with a continuance. Patient states that he is willing to continue staying in hospital until treatment he is able to find appropriate housing. Patient reports feeling "excellent", continues with catholic preoccupations and delusions. Review of Systems Except as stated in HPI: all other systems reviewed are Neg Mental Status Examination Appearance: Appropriate Consciousness: Alert Orientation: Person, Place Motor Activity: Normal gait Speech: Unremarkable Language: Adequate Fund of Knowledge: Adequate Attention and Concentration: Inadequate Memory: Impaired Mood: Other ("excellent") Affect: Other (expansive) Thought Process & Associations: Loose associations, Tangential Thought Content: Bizarre thinking, Hallucinations, Delusional (religiously preoccupied) Hallucination Type: Auditory (appears internally preoccupied at times but the patient denies any auditory hallucinations) Delusion Type: Bizarre, Other (catholic) Suicidal Ideation: No Suicidal Plan: No Suicidal Intention: No Homicidal Ideation: No Homicidal Plan: No Homicidal Intention: No Insight: Poor Judgment: Poor Results Vitals/IOs Vital Signs Date Time Temp Pulse Resp B/P (MAP) Pulse Ox O2 Delivery O2 Flow Rate FiO2 07/05/17 06:00 97.9 89 16 120/73 (89) 97 Intake and Output 07/05/17 07/05/17 07/06/17 08:00 16:00 00:00 Intake Total 240 ml Balance 240 ml Assessment & Plan Problem List: (1) Psychotic disorder ICD Codes: F29 - Unspecified psychosis not due to a substance or known physiological condition Assessment & Plan Patient with no behavioral dyscontrol since admission, continues to require continued treatment as patient continues to have persistent catholic preoccupation and delusions. Patient was attained to mental health Court for another continuance until patient is able to be placed in a nursing facility which she requires. Continue current treatment. Discharge planning in progress Justification for Cont. Inpt. At risk for the compensation for lower level of care Discharge Planning Patient to be discharged to a nursing facility once one is acquired Jhoan Tabares MD Jul 05, 2017 11:48
[2017-07-05] MEDS: ACETAMINOPHEN 325 MG TAB PO PRN (12:59)
[2017-07-05 17:56] VITALS: BP 121/69; PULSE 97; RESP 16; TEMP 97.6; O2SAT 98
[2017-07-05] MEDS: QUEtiapine FUMARATE 300 MG TAB PO SCH (21:35)
[2017-07-06 05:28] VITALS: BP 126/75; PULSE 90; RESP 16; TEMP 97.6; O2SAT 98
[2017-07-06] MEDS: hydrALAZINE HCL 25 MG TAB PO SCH ×3 (05:42→21:35)
[2017-07-06] MEDS: NIFEdipine 90 MG SUSTAINED RELEASE TAB PO SCH (09:00)
[2017-07-06] MEDS: LISINOPRIL 20 MG TAB PO SCH (09:00)
[2017-07-06] MEDS: ACYCLOVIR 800 MG TAB PO SCH (09:00)
[2017-07-06] MEDS: QUEtiapine FUMARATE 100 MG TAB PO SCH ×2 (09:00→13:02)
[2017-07-06] MEDS: METOPROLOL SUCCINATE 50 MG EXTENDED RELEASE TAB PO SCH (09:11)
[2017-07-06 15:35] VITALS: BP 134/79; PULSE 111; RESP 16; TEMP 98.3; O2SAT 96
--- NOTE | 2017-07-06 16:26 | HHI.PYPN ---
Subjective Remarks Patient seen for follow-up, chart review. Discussion she staff reported the patient hasn't endorsing auditory hallucinations but has been compliant. Patient found in the room noted to be calm and cooperative. Patient states that he continues to have the voice of "fireball" as well as a new voice called "my anahi" which she now is endorsing that speaks to him having regular conversations. Patient denies allergies auditory hallucination of the command nature or negative. Patient denies SI, HI continues with auditory hallucinations and yazdanism preoccupation delusions. Review of Systems Except as stated in HPI: all other systems reviewed are Neg Mental Status Examination Appearance: Appropriate Consciousness: Alert Orientation: Person, Place Motor Activity: Normal gait Speech: Unremarkable Language: Adequate Fund of Knowledge: Adequate Attention and Concentration: Inadequate Memory: Impaired Mood: Appropriate, Other ("excellent") Affect: Appropriate Thought Process & Associations: Loose associations, Tangential Thought Content: Bizarre thinking, Hallucinations, Delusional (religiously preoccupied) Hallucination Type: Auditory (appears internally preoccupied at times but the patient denies any auditory hallucinations) Delusion Type: Bizarre, Other (yazdanism) Suicidal Ideation: No Suicidal Plan: No Suicidal Intention: No Homicidal Ideation: No Homicidal Plan: No Homicidal Intention: No Insight: Poor Judgment: Poor Results Vitals/IOs Vital Signs Date Time Temp Pulse Resp B/P (MAP) Pulse Ox O2 Delivery O2 Flow Rate FiO2 07/06/17 15:35 98.3 111 16 134/79 (97) 96 Intake and Output 07/06/17 07/06/17 07/07/17 08:00 16:00 00:00 Intake Total 240 ml 240 ml Balance 240 ml 240 ml Assessment & Plan Problem List: (1) Psychotic disorder ICD Codes: F29 - Unspecified psychosis not due to a substance or known physiological condition Assessment & Plan Patient this time continues to have yazdanism preoccupation and delusions along with auditory hallucinations that have conversations with him but not negative in nature. Continue current treatment. Will order CBC and BMP. Discharge planning in progress. Justification for Cont. Inpt. At risk for further decompensation if at lower level of care Discharge Planning To be discharged to nursing facility once one is acquired. Jhoan Tabares MD Jul 06, 2017 16:26
[2017-07-06] MEDS: QUEtiapine FUMARATE 300 MG TAB PO SCH (21:35)
[2017-07-07 06:05] VITALS: BP 149/88; PULSE 98; RESP 17; TEMP 97.7; O2SAT 98
[2017-07-07] MEDS: hydrALAZINE HCL 25 MG TAB PO SCH ×3 (06:30→21:00)
[2017-07-07 08:25] LABS: AUTOMATED NEUTROPHIL # 3.1 TH/MM3 (1.8-7.7); BASOPHIL % 0.9 % (0.0-2.0); EOSINOPHIL # 0.2 TH/MM3 (0-0.4); EOSINOPHIL % 3.8 % (0.0-4.0); HEMATOCRIT 42.6 % (39.0-51.0); HEMOGLOBIN 14.7 GM/DL (13.0-17.0); LYMPH % 24.4 % (9.0-44.0); LYMPHOCYTE # 1.2 TH/MM3 (1.0-4.8); MEAN CELL VOLUME 89.8 FL (80.0-100.0); MEAN CORPUSCULAR HEMOGLOBIN 30.9 PG (27.0-34.0); MEAN CORPUSCULAR HGB CONC 34.4 % (32.0-36.0); MEAN PLATELET VOLUME 9.5 FL (7.0-11.0); MONO % 9.8 % (0.0-8.0); MONOCYTE # 0.5 TH/MM3 (0-0.9); NEUT % 61.1 % (16.0-70.0); PLATELET COUNT 198 TH/MM3 (150-450); RED BLOOD COUNT 4.75 MIL/MM3 (4.50-5.90); RED CELL DISTRIBUTION WIDTH 13.2 % (11.6-17.2); WHITE BLOOD COUNT 5.1 TH/MM3 (4.0-11.0)
[2017-07-07 08:42] LABS: BICARBONATE 24.8 MEQ/L (21.0-32.0); CREATININE 0.92 MG/DL (0.60-1.30)
[2017-07-07] MEDS: ACYCLOVIR 800 MG TAB PO SCH (08:49)
[2017-07-07] MEDS: METOPROLOL SUCCINATE 50 MG EXTENDED RELEASE TAB PO SCH (08:50)
[2017-07-07] MEDS: NIFEdipine 90 MG SUSTAINED RELEASE TAB PO SCH (08:51)
[2017-07-07] MEDS: QUEtiapine FUMARATE 100 MG TAB PO SCH ×2 (08:51→12:00)
[2017-07-07] MEDS: LISINOPRIL 20 MG TAB PO SCH (08:51)
--- NOTE | 2017-07-07 12:25 | HHI.PYPN ---
Subjective Remarks Patient was seen and case discussed with nursing. Patient remains quite delusional and religiously preoccupied. He is hyperverbal with pressured speech and loose association. There is bizarre taoist delusions including Logan traveling to other planets and an attempt to convince me Mental Status Examination Appearance: Appropriate Consciousness: Alert Orientation: Person, Place Motor Activity: Normal gait Speech: Unremarkable Language: Adequate Fund of Knowledge: Adequate Attention and Concentration: Inadequate Memory: Impaired Mood: Appropriate, Other ("excellent") Affect: Appropriate Thought Process & Associations: Loose associations, Tangential Thought Content: Bizarre thinking, Hallucinations, Delusional (religiously preoccupied) Hallucination Type: Auditory (appears internally preoccupied at times but the patient denies any auditory hallucinations) Delusion Type: Bizarre, Other (taoist) Suicidal Ideation: No Suicidal Plan: No Suicidal Intention: No Homicidal Ideation: No Homicidal Plan: No Homicidal Intention: No Insight: Poor Judgment: Poor Results Labs Test 07/07/17 06:54 White Blood Count 5.1 TH/MM3 Red Blood Count 4.75 MIL/MM3 Hemoglobin 14.7 GM/DL Hematocrit 42.6 % Mean Corpuscular Volume 89.8 FL Mean Corpuscular Hemoglobin 30.9 PG Mean Corpuscular Hemoglobin Concent 34.4 % Red Cell Distribution Width 13.2 % Platelet Count 198 TH/MM3 Mean Platelet Volume 9.5 FL Neutrophils (%) (Auto) 61.1 % Lymphocytes (%) (Auto) 24.4 % Monocytes (%) (Auto) 9.8 % Eosinophils (%) (Auto) 3.8 % Basophils (%) (Auto) 0.9 % Neutrophils # (Auto) 3.1 TH/MM3 Lymphocytes # (Auto) 1.2 TH/MM3 Monocytes # (Auto) 0.5 TH/MM3 Eosinophils # (Auto) 0.2 TH/MM3 Basophils # (Auto) 0.0 TH/MM3 CBC Comment DIFF FINAL Differential Comment Blood Urea Nitrogen 23 MG/DL Creatinine 0.92 MG/DL Random Glucose 90 MG/DL Calcium Level 9.0 MG/DL Sodium Level 136 MEQ/L Potassium Level 4.1 MEQ/L Chloride Level 105 MEQ/L Carbon Dioxide Level 24.8 MEQ/L Anion Gap 6 MEQ/L Estimat Glomerular Filtration Rate 84 ML/MIN Vitals/IOs Vital Signs Date Time Temp Pulse Resp B/P (MAP) Pulse Ox O2 Delivery O2 Flow Rate FiO2 07/07/17 06:05 97.7 98 17 149/88 (108) 98 Intake and Output 07/07/17 07/07/17 07/08/17 08:00 16:00 00:00 Intake Total 240 ml 240 ml Balance 240 ml 240 ml Assessment & Plan Problem List: (1) Psychotic disorder ICD Codes: F29 - Unspecified psychosis not due to a substance or known physiological condition Assessment & Plan Continue current treatment plan Justification for Cont. Inpt. Patient would decompensate in a less restrictive setting Manny Camacho DO Jul 07, 2017 12:25
[2017-07-07 17:42] VITALS: BP 124/67; PULSE 89; RESP 18; TEMP 97.9; O2SAT 98
[2017-07-07] MEDS: QUEtiapine FUMARATE 300 MG TAB PO SCH (21:00)
[2017-07-08] MEDS: hydrALAZINE HCL 25 MG TAB PO SCH ×3 (05:17→20:45)
[2017-07-08 06:19] VITALS: BP 135/78; PULSE 90; RESP 16; TEMP 97.9; O2SAT 98
[2017-07-08] MEDS: NIFEdipine 90 MG SUSTAINED RELEASE TAB PO SCH (09:00)
[2017-07-08] MEDS: ACYCLOVIR 800 MG TAB PO SCH (09:01)
[2017-07-08] MEDS: METOPROLOL SUCCINATE 50 MG EXTENDED RELEASE TAB PO SCH (09:01)
[2017-07-08] MEDS: QUEtiapine FUMARATE 100 MG TAB PO SCH ×2 (09:02→12:42)
[2017-07-08] MEDS: LISINOPRIL 20 MG TAB PO SCH (09:02)
--- NOTE | 2017-07-08 10:56 | HHI.PYPN ---
Subjective Remarks Patient was seen and case discussed with nursing. Patient remains floridly psychotic. He is focused on his spiritual being called Mr. carrasco. He then says nonsensical things like we arrive 20 years before Logan was crucified. Tolerating medications well and behaving well on the unit Mental Status Examination Appearance: Appropriate Consciousness: Alert Orientation: Person, Place Motor Activity: Normal gait Speech: Unremarkable Language: Adequate Fund of Knowledge: Adequate Attention and Concentration: Inadequate Memory: Impaired Mood: Appropriate, Other ("excellent") Affect: Appropriate Thought Process & Associations: Loose associations, Tangential Thought Content: Bizarre thinking, Hallucinations, Delusional (religiously preoccupied) Hallucination Type: Auditory (appears internally preoccupied at times but the patient denies any auditory hallucinations) Delusion Type: Bizarre, Other (hoahaoism) Suicidal Ideation: No Suicidal Plan: No Suicidal Intention: No Homicidal Ideation: No Homicidal Plan: No Homicidal Intention: No Insight: Poor Judgment: Poor Results Vitals/IOs Vital Signs Date Time Temp Pulse Resp B/P (MAP) Pulse Ox O2 Delivery O2 Flow Rate FiO2 07/08/17 06:19 97.9 90 16 135/78 (97) 98 Assessment & Plan Problem List: (1) Psychotic disorder ICD Codes: F29 - Unspecified psychosis not due to a substance or known physiological condition Assessment & Plan Continue current treatment plan Justification for Cont. Inpt. Patient would decompensate in a less restrictive setting Manny Camacho DO Jul 08, 2017 10:56
[2017-07-08 17:51] VITALS: BP 118/65; PULSE 89; RESP 16; TEMP 97.7; O2SAT 98
[2017-07-08] MEDS: QUEtiapine FUMARATE 300 MG TAB PO SCH (20:44)
[2017-07-09 05:29] VITALS: BP 122/63; PULSE 95; RESP 18; TEMP 97.1; O2SAT 97
[2017-07-09] MEDS: hydrALAZINE HCL 25 MG TAB PO SCH ×3 (06:23→21:01)
[2017-07-09] MEDS: METOPROLOL SUCCINATE 50 MG EXTENDED RELEASE TAB PO SCH (08:20)
[2017-07-09] MEDS: ACYCLOVIR 800 MG TAB PO SCH (08:20)
[2017-07-09] MEDS: QUEtiapine FUMARATE 100 MG TAB PO SCH ×2 (08:21→11:34)
[2017-07-09] MEDS: LISINOPRIL 20 MG TAB PO SCH (08:21)
[2017-07-09] MEDS: NIFEdipine 90 MG SUSTAINED RELEASE TAB PO SCH (08:21)
--- NOTE | 2017-07-09 10:57 | HHI.PYPN ---
Subjective Remarks Patient seen in his room with nurse Kiko, patient compliant medications, chart reviewed. Patient continues somewhat intense and elevated with pressured speech. Is markedly disorganized and tangential and circumstantial. There is a significant spiritual overtone to this also. For now continue treatment Review of Systems Except as stated in HPI: all other systems reviewed are Neg Mental Status Examination Appearance: Appropriate Consciousness: Alert Orientation: Person, Place Motor Activity: Normal gait Speech: Unremarkable Language: Adequate Fund of Knowledge: Adequate Attention and Concentration: Inadequate Memory: Impaired Mood: Appropriate, Other ("excellent") Affect: Appropriate Thought Process & Associations: Loose associations, Tangential Thought Content: Bizarre thinking, Hallucinations, Delusional (religiously preoccupied) Hallucination Type: Auditory (appears internally preoccupied at times but the patient denies any auditory hallucinations) Delusion Type: Bizarre, Other (sikh) Suicidal Ideation: No Suicidal Plan: No Suicidal Intention: No Homicidal Ideation: No Homicidal Plan: No Homicidal Intention: No Insight: Poor Judgment: Poor Results Vitals/IOs Vital Signs Date Time Temp Pulse Resp B/P (MAP) Pulse Ox O2 Delivery O2 Flow Rate FiO2 07/09/17 05:29 97.1 95 18 122/63 (82) 97 Intake and Output 07/09/17 07/09/17 07/10/17 08:00 16:00 00:00 Intake Total 960 ml Balance 960 ml Assessment & Plan Problem List: (1) Psychotic disorder ICD Codes: F29 - Unspecified psychosis not due to a substance or known physiological condition Status: Acute Assessment & Plan Estimated LOS: days patient psychotic and delusional, intense with little insight. Compliant medications. Justification for Cont. Inpt. At this time patient will decompensate if place a lower level of care Discharge Planning To be determined Problem Qualifiers (1) Psychotic disorder: Qualified Codes: F23 - Brief psychotic disorder Nixon Cole MD Jul 09, 2017 10:57
[2017-07-09 18:13] VITALS: BP 142/73; PULSE 91; RESP 18; TEMP 98.7; O2SAT 99
[2017-07-09] MEDS: QUEtiapine FUMARATE 300 MG TAB PO SCH (21:01)
[2017-07-10] MEDS: hydrALAZINE HCL 25 MG TAB PO SCH ×3 (05:35→21:17)
[2017-07-10 05:39] VITALS: BP 119/73; PULSE 98; RESP 17; TEMP 98.3; O2SAT 100
[2017-07-10] MEDS: METOPROLOL SUCCINATE 50 MG EXTENDED RELEASE TAB PO SCH (08:24)
[2017-07-10] MEDS: QUEtiapine FUMARATE 100 MG TAB PO SCH ×2 (08:24→12:02)
[2017-07-10] MEDS: LISINOPRIL 20 MG TAB PO SCH (08:24)
[2017-07-10] MEDS: NIFEdipine 90 MG SUSTAINED RELEASE TAB PO SCH (08:25)
[2017-07-10] MEDS: ACYCLOVIR 800 MG TAB PO SCH (08:25)
--- NOTE | 2017-07-10 11:07 | HHI.PYPN ---
Subjective Remarks She is seen for follow-up, chart review. Patient is found in the room, cooperative today. Patient states states feeling "the same" and that he continues to have contact with Chito Ford, of being she calls "fireball" as well as "intelligence senior sergeant". Patient states that he is feeling "excellent" denies any physical complaints at this time. Reports tolerating medications well. Patient continues to have persistent temple delusions and auditory hallucinations from these beings which are recommended nature and do not seem to be distressful to him. Patient denies SI, HI, continued with auditory hallucinations denies any visual hallucinations continue his with temple delusions. Review of Systems Except as stated in HPI: all other systems reviewed are Neg Mental Status Examination Appearance: Appropriate Consciousness: Alert Orientation: Person, Place Motor Activity: Normal gait Speech: Unremarkable Language: Adequate Fund of Knowledge: Adequate Attention and Concentration: Inadequate Memory: Impaired Mood: Appropriate, Other ("excellent") Affect: Appropriate Thought Process & Associations: Loose associations, Tangential Thought Content: Bizarre thinking, Hallucinations, Delusional (religiously preoccupied) Hallucination Type: Auditory (from Chito Ford, a being he calls "fireball") Delusion Type: Bizarre, Other (temple) Suicidal Ideation: No Suicidal Plan: No Suicidal Intention: No Homicidal Ideation: No Homicidal Plan: No Homicidal Intention: No Insight: Poor Judgment: Poor Results Vitals/IOs Vital Signs Date Time Temp Pulse Resp B/P (MAP) Pulse Ox O2 Delivery O2 Flow Rate FiO2 07/10/17 05:39 98.3 98 17 119/73 (88) 100 Intake and Output 07/10/17 07/10/17 07/11/17 08:00 16:00 00:00 Intake Total 240 ml Balance 240 ml Assessment & Plan Problem List: (1) Psychotic disorder ICD Codes: F29 - Unspecified psychosis not due to a substance or known physiological condition Status: Acute Assessment & Plan Patient continues with persistent temple delusions despite maximum dose on antipsychotic which patient may have fixed delusions. Patient denies any depressive or manic symptoms only continue psychotic symptoms in the form of delusions and auditory hallucinations. Patient to continue current treatment. Patient continue waiting placement to a nursing facility who are plan to come visit him today or tomorrow. Discharge planning in progress Justification for Cont. Inpt. At risk for further decompensation if at lower level of care Discharge Planning Patient at discharge a nursing facility once one is acquired Problem Qualifiers (1) Psychotic disorder: Qualified Codes: F23 - Brief psychotic disorder Jhoan Tabares MD Jul 10, 2017 11:07
[2017-07-10 18:00] VITALS: BP 124/68; PULSE 101; RESP 18; TEMP 98.4; O2SAT 98
[2017-07-10] MEDS: QUEtiapine FUMARATE 300 MG TAB PO SCH (21:16)
[2017-07-11 05:51] VITALS: BP 130/77; PULSE 104; RESP 18; TEMP 98.5; O2SAT 99
[2017-07-11] MEDS: hydrALAZINE HCL 25 MG TAB PO SCH ×3 (06:07→21:35)
[2017-07-11] MEDS: LISINOPRIL 20 MG TAB PO SCH (08:38)
[2017-07-11] MEDS: ACYCLOVIR 800 MG TAB PO SCH (08:38)
[2017-07-11] MEDS: METOPROLOL SUCCINATE 50 MG EXTENDED RELEASE TAB PO SCH (08:38)
[2017-07-11] MEDS: NIFEdipine 90 MG SUSTAINED RELEASE TAB PO SCH (08:39)
[2017-07-11] MEDS: QUEtiapine FUMARATE 100 MG TAB PO SCH ×2 (08:39→11:35)
[2017-07-11 11:32] VITALS: BP 126/73; PULSE 97
[2017-07-11 18:05] VITALS: BP 118/67; PULSE 90; RESP 18; TEMP 98.4; O2SAT 97
--- NOTE | 2017-07-11 20:20 | HHI.PYPN ---
Subjective Remarks Patient seen for follow up; chart reviewed. Patient found in room doing sit-ups , cooperative with interview. Discussion with nursing staff reported that the patient noted to be brighter, less jainism preoccupation recently. Patient states that "everything is the same", referring to jainism delusions and commenting on "fireball" and how this being is "mischevious". Patient continues to endorse AH form these beings, Logan and Satan. He denies any physical complaints, tolerating medications well. Review of Systems Except as stated in HPI: all other systems reviewed are Neg Mental Status Examination Appearance: Appropriate Consciousness: Alert Orientation: Person, Place Motor Activity: Normal gait Speech: Unremarkable Language: Adequate Fund of Knowledge: Adequate Attention and Concentration: Inadequate Memory: Impaired Mood: Appropriate, Other ("excellent") Affect: Appropriate Thought Process & Associations: Loose associations, Tangential (less so today) Thought Content: Bizarre thinking, Hallucinations, Delusional (religiously preoccupied) Hallucination Type: Auditory (from Logan, Satan, a being he calls "fireball") Delusion Type: Bizarre, Other (jainism) Suicidal Ideation: No Suicidal Plan: No Suicidal Intention: No Homicidal Ideation: No Homicidal Plan: No Homicidal Intention: No Insight: Poor Judgment: Poor Results Vitals/IOs Vital Signs Date Time Temp Pulse Resp B/P (MAP) Pulse Ox O2 Delivery O2 Flow Rate FiO2 07/11/17 18:05 98.4 90 18 118/67 (84) 97 Assessment & Plan Problem List: (1) Psychotic disorder ICD Codes: F29 - Unspecified psychosis not due to a substance or known physiological condition Status: Acute Assessment & Plan Patient continues with jainism delusions and AH which are not distressing to the patient. Continue current treatment. Patient awaiting placement in nursing facility. Justification for Cont. Inpt. At risk for further decompensation if at lower level of care. Problem Qualifiers (1) Psychotic disorder: Qualified Codes: F23 - Brief psychotic disorder Jhoan Tabares MD Jul 11, 2017 20:20
[2017-07-11] MEDS: QUEtiapine FUMARATE 300 MG TAB PO SCH (21:15)
[2017-07-12 06:00] VITALS: BP 119/68; PULSE 96; RESP 17; TEMP 98.1; O2SAT 99
[2017-07-12] MEDS: hydrALAZINE HCL 25 MG TAB PO SCH ×3 (06:18→21:42)
[2017-07-12] MEDS: ACYCLOVIR 800 MG TAB PO SCH (08:34)
[2017-07-12] MEDS: NIFEdipine 90 MG SUSTAINED RELEASE TAB PO SCH (08:34)
[2017-07-12] MEDS: LISINOPRIL 20 MG TAB PO SCH (08:34)
[2017-07-12] MEDS: METOPROLOL SUCCINATE 50 MG EXTENDED RELEASE TAB PO SCH (08:34)
[2017-07-12] MEDS: QUEtiapine FUMARATE 100 MG TAB PO SCH ×2 (08:34→12:17)
--- NOTE | 2017-07-12 15:00 | HHI.PYPN ---
Subjective Remarks Patient seen for follow-up, chart reviewed. Discussion she staff reported that there have been no change with patient. Patient was found sitting in hospital bed, cooperative interview. Patient states that everything is "the same". Patient states that Logan wanted him to tell advertising copy writer that "the nicotine as lethal and that marijuana is okay". Patient continues report that Chito is in his right foot to that he has fireball as being next to him as well as his "property management accountant". Patient denies any physical complaints, denies any thoughts of self-harm or harm to others. Review of Systems Except as stated in HPI: all other systems reviewed are Neg Mental Status Examination Appearance: Appropriate Consciousness: Alert Orientation: Person, Place Motor Activity: Normal gait Speech: Unremarkable Language: Adequate Fund of Knowledge: Adequate Attention and Concentration: Inadequate Memory: Impaired Mood: Appropriate, Other ("excellent") Affect: Appropriate Thought Process & Associations: Loose associations, Tangential (less so today) Thought Content: Bizarre thinking, Hallucinations, Delusional (religiously preoccupied) Hallucination Type: Auditory (from Chito Ford, a being he calls "fireball") Delusion Type: Bizarre, Other (oriental orthodox) Suicidal Ideation: No Suicidal Plan: No Suicidal Intention: No Homicidal Ideation: No Homicidal Plan: No Homicidal Intention: No Insight: Poor Judgment: Poor Results Vitals/IOs Vital Signs Date Time Temp Pulse Resp B/P (MAP) Pulse Ox O2 Delivery O2 Flow Rate FiO2 07/12/17 06:00 98.1 96 17 119/68 (85) 99 Assessment & Plan Problem List: (1) Psychotic disorder ICD Codes: F29 - Unspecified psychosis not due to a substance or known physiological condition Status: Acute Assessment & Plan Patient continues with perseverative oriental orthodox delusions of Chito Ford, him being in fireball and "property management accountant"who speak to him. Patient denies any physical complaints. Continue current treatment. Patient continues to wait for placement to a nursing facility. Justification for Cont. Inpt. At risk for further decompensation if at lower level of care Discharge Planning To be discharged to a nursing facility when acquired Problem Qualifiers (1) Psychotic disorder: Qualified Codes: F23 - Brief psychotic disorder Jhoan Tabares MD Jul 12, 2017 15:00
[2017-07-12 16:53] VITALS: BP 116/66; PULSE 86; RESP 18; TEMP 97.9; O2SAT 98
[2017-07-12] MEDS: QUEtiapine FUMARATE 300 MG TAB PO SCH (21:41)
[2017-07-13] MEDS: hydrALAZINE HCL 25 MG TAB PO SCH ×3 (05:35→21:45)
[2017-07-13 06:00] VITALS: BP 111/64; PULSE 95; RESP 16; TEMP 97.8; O2SAT 99
[2017-07-13] MEDS: ACYCLOVIR 800 MG TAB PO SCH (09:00)
[2017-07-13] MEDS: QUEtiapine FUMARATE 100 MG TAB PO SCH ×2 (09:00→12:00)
[2017-07-13] MEDS: LISINOPRIL 20 MG TAB PO SCH (09:00)
[2017-07-13] MEDS: NIFEdipine 90 MG SUSTAINED RELEASE TAB PO SCH (09:00)
[2017-07-13] MEDS: METOPROLOL SUCCINATE 50 MG EXTENDED RELEASE TAB PO SCH (09:00)
--- NOTE | 2017-07-13 16:06 | HHI.PYPN ---
Subjective Remarks Patient seen for follow-up, chart reviewed. Patient found sitting in day room, coloring and eating his lunch. He states that everything is the same with his plan from Logan. He continues to sabianist preoccupations and AH from the "beings" of God. He reports good mood, eating and drinking well, no physical complaints. Denies SI, HI, VH but continues with AH and sabianist delusions. Review of Systems Except as stated in HPI: all other systems reviewed are Neg Mental Status Examination Appearance: Appropriate Consciousness: Alert Orientation: Person, Place Motor Activity: Normal gait Speech: Unremarkable Language: Adequate Fund of Knowledge: Adequate Attention and Concentration: Inadequate Memory: Impaired Mood: Appropriate, Other ("excellent") Affect: Appropriate Thought Process & Associations: Loose associations, Tangential (less so today) Thought Content: Bizarre thinking, Hallucinations, Delusional (religiously preoccupied) Hallucination Type: Auditory (from Logan, Chito, a being he calls "fireball") Delusion Type: Bizarre, Other (sabianist) Suicidal Ideation: No Suicidal Plan: No Suicidal Intention: No Homicidal Ideation: No Homicidal Plan: No Homicidal Intention: No Insight: Poor Judgment: Poor Results Vitals/IOs Vital Signs Date Time Temp Pulse Resp B/P (MAP) Pulse Ox O2 Delivery O2 Flow Rate FiO2 07/13/17 06:00 97.8 95 16 111/64 (80) 99 Intake and Output 07/13/17 07/13/17 07/14/17 08:00 16:00 00:00 Intake Total 1440 ml Balance 1440 ml Assessment & Plan Problem List: (1) Psychotic disorder ICD Codes: F29 - Unspecified psychosis not due to a substance or known physiological condition Status: Acute Assessment & Plan Patient at this time continues with her persistant sabianist delusions and auditory hallucinations but has not had any behavioral dyscontrol since admission. Continue current treatment. Discharge planning in progress Justification for Cont. Inpt. At risk for further decompensation if at lower level of care Discharge Planning To be discharged to a nursing facility once one is acquired Problem Qualifiers (1) Psychotic disorder: Qualified Codes: F23 - Brief psychotic disorder Jhoan Tabares MD Jul 13, 2017 16:06
[2017-07-13 18:00] VITALS: BP 115/62; PULSE 97; RESP 17; TEMP 98.1; O2SAT 98
[2017-07-13] MEDS: QUEtiapine FUMARATE 300 MG TAB PO SCH (21:45)
[2017-07-14] MEDS: hydrALAZINE HCL 25 MG TAB PO SCH ×3 (05:57→20:58)
[2017-07-14 06:19] VITALS: BP 131/72; PULSE 85; RESP 17; TEMP 98; O2SAT 97
[2017-07-14] MEDS: NIFEdipine 90 MG SUSTAINED RELEASE TAB PO SCH (08:15)
[2017-07-14] MEDS: ACYCLOVIR 800 MG TAB PO SCH (08:15)
[2017-07-14] MEDS: LISINOPRIL 20 MG TAB PO SCH (08:15)
[2017-07-14] MEDS: METOPROLOL SUCCINATE 50 MG EXTENDED RELEASE TAB PO SCH (08:16)
[2017-07-14] MEDS: QUEtiapine FUMARATE 100 MG TAB PO SCH ×2 (08:16→11:35)
--- NOTE | 2017-07-14 15:18 | HHI.PYPN ---
Subjective Remarks Pt seen and discussed with staff. Chart reviewed. He remains yazidism preoccupied and delusional with internal stimuli. He tells a rambling story of the earth being the result of a fireball burped by the universe. "Father God is in all of us. MR. Dale. Mr. Guerrero." He is compliant with medications. No agitation. Mental Status Examination Appearance: Appropriate Consciousness: Alert Orientation: Person, Place Motor Activity: Normal gait Speech: Unremarkable Language: Adequate Fund of Knowledge: Adequate Attention and Concentration: Inadequate Memory: Impaired Mood: Appropriate, Other ("excellent") Affect: Appropriate Thought Process & Associations: Loose associations, Tangential (less so today) Thought Content: Bizarre thinking, Hallucinations, Delusional (religiously preoccupied) Hallucination Type: Auditory Delusion Type: Bizarre, Other (yazidism) Suicidal Ideation: No Suicidal Plan: No Suicidal Intention: No Homicidal Ideation: No Homicidal Plan: No Homicidal Intention: No Insight: Poor Judgment: Poor Results Vitals/IOs Vital Signs Date Time Temp Pulse Resp B/P (MAP) Pulse Ox O2 Delivery O2 Flow Rate FiO2 07/14/17 06:19 98.0 85 17 131/72 (91) 97 Intake and Output 07/14/17 07/14/17 07/15/17 08:00 16:00 00:00 Intake Total 240 ml 240 ml Balance 240 ml 240 ml Assessment & Plan Problem List: (1) Psychotic disorder ICD Codes: F29 - Unspecified psychosis not due to a substance or known physiological condition Status: Acute Assessment & Plan Continue current tx plan. Estimated LOS: days Justification for Cont. Inpt. impairments in reality testing Problem Qualifiers (1) Psychotic disorder: Qualified Codes: F23 - Brief psychotic disorder Radha Meyers MD Jul 14, 2017 15:18
[2017-07-14 18:15] VITALS: BP 118/73; PULSE 107; RESP 18; TEMP 98.7; O2SAT 94
[2017-07-14] MEDS: QUEtiapine FUMARATE 300 MG TAB PO SCH (20:57)
[2017-07-15] MEDS: hydrALAZINE HCL 25 MG TAB PO SCH ×3 (05:57→22:06)
[2017-07-15 06:01] VITALS: BP 144/79; PULSE 92; RESP 18; TEMP 97.4; O2SAT 99
[2017-07-15] MEDS: LISINOPRIL 20 MG TAB PO SCH (08:39)
[2017-07-15] MEDS: METOPROLOL SUCCINATE 50 MG EXTENDED RELEASE TAB PO SCH (08:39)
[2017-07-15] MEDS: QUEtiapine FUMARATE 100 MG TAB PO SCH ×2 (08:40→11:40)
[2017-07-15] MEDS: ACYCLOVIR 800 MG TAB PO SCH (08:40)
[2017-07-15] MEDS: NIFEdipine 90 MG SUSTAINED RELEASE TAB PO SCH (08:40)
--- NOTE | 2017-07-15 15:00 | HHI.PYPN ---
Subjective Remarks Pt seen and discussed with staff. He has been seclusive to room today. He has been compliant with treatment and denies SI/HI. Mandaeism preoccupation and delusions persist. Mental Status Examination Appearance: Appropriate Consciousness: Alert Orientation: Person, Place Motor Activity: Normal gait Speech: Unremarkable Language: Adequate Fund of Knowledge: Adequate Attention and Concentration: Inadequate Memory: Impaired Mood: Appropriate, Other ("excellent") Affect: Appropriate Thought Process & Associations: Loose associations, Tangential (less so today) Thought Content: Bizarre thinking, Hallucinations, Delusional (religiously preoccupied) Hallucination Type: Auditory Delusion Type: Bizarre, Other (zoroastrianism) Suicidal Ideation: No Suicidal Plan: No Suicidal Intention: No Homicidal Ideation: No Homicidal Plan: No Homicidal Intention: No Insight: Poor Judgment: Poor Results Vitals/IOs Vital Signs Date Time Temp Pulse Resp B/P (MAP) Pulse Ox O2 Delivery O2 Flow Rate FiO2 07/15/17 06:01 97.4 92 18 144/79 (100) 99 Assessment & Plan Problem List: (1) Psychotic disorder ICD Codes: F29 - Unspecified psychosis not due to a substance or known physiological condition Status: Acute Assessment & Plan Continue current tx plan. Estimated LOS: days Justification for Cont. Inpt. risk of decompensation Problem Qualifiers (1) Psychotic disorder: Qualified Codes: F23 - Brief psychotic disorder Radha Meyers MD Jul 15, 2017 15:00
[2017-07-15 16:56] VITALS: BP 119/70; PULSE 98; RESP 18; TEMP 98.2; O2SAT 96
[2017-07-15] MEDS: QUEtiapine FUMARATE 300 MG TAB PO SCH (22:06)
[2017-07-16 05:55] VITALS: BP 122/67; PULSE 90; RESP 17; TEMP 98; O2SAT 97
[2017-07-16] MEDS: hydrALAZINE HCL 25 MG TAB PO SCH ×3 (06:09→20:58)
[2017-07-16] MEDS: NIFEdipine 90 MG SUSTAINED RELEASE TAB PO SCH (09:00)
[2017-07-16] MEDS: QUEtiapine FUMARATE 100 MG TAB PO SCH ×2 (09:41→13:28)
[2017-07-16] MEDS: METOPROLOL SUCCINATE 50 MG EXTENDED RELEASE TAB PO SCH (09:41)
[2017-07-16] MEDS: LISINOPRIL 20 MG TAB PO SCH (09:41)
[2017-07-16] MEDS: ACYCLOVIR 800 MG TAB PO SCH (09:41)
[2017-07-16] MEDS ORDERED: BENZTROPINE MESYLATE 2 MG/2 ML VIAL IM PRN (11:45)
[2017-07-16] MEDS ORDERED: BENZTROPINE MESYLATE 1 MG TAB PO PRN (11:45)
--- NOTE | 2017-07-16 11:46 | HHI.PYPN ---
Subjective Remarks Patient seen and examined with nurse in coverage for Dr. Tabares. Chart reviewed. Case discussed with nursing staff. On my examination today, the patient is in good spirits. He perseverates on what I suspect are long- standing delusional themes. He accuses a former psychiatrist of being guilty of murder and worse. He rambles about "Mr. Dale and Mr. Champion." No SI or HI. Denies side effects from medications. No physical complaints. Review of Systems ROS Limitations: Psychotic, Poor Historian Except as stated in HPI: all other systems reviewed are Neg Mental Status Examination Appearance: Appropriate Consciousness: Alert Orientation: Person, Place (at least) Motor Activity: Normal gait, Other (patient does have a resting tremor and some subtle cogwheeling but no hypomimia.) Speech: Unremarkable Language: Adequate Fund of Knowledge: Adequate Attention and Concentration: Inadequate Mood: Appropriate, Other ("excellent") Affect: Appropriate Thought Process & Associations: Loose associations, Tangential (less so today) Thought Content: Bizarre thinking, Hallucinations, Delusional Hallucination Type: Auditory (appears internally stimulated) Delusion Type: Bizarre, Paranoid, Other (druze) Suicidal Ideation: No Suicidal Plan: No Suicidal Intention: No Homicidal Ideation: No Homicidal Plan: No Homicidal Intention: No Insight: Poor Judgment: Poor Results Labs Labs reviewed. No recent labs. Vitals/IOs Vital Signs Date Time Temp Pulse Resp B/P (MAP) Pulse Ox O2 Delivery O2 Flow Rate FiO2 07/16/17 05:55 98.0 90 17 122/67 (85) 97 Assessment & Plan Problem List: (1) Psychotic disorder ICD Codes: F29 - Unspecified psychosis not due to a substance or known physiological condition Status: Acute Assessment & Plan Patient declines scheduled anticholinergic for what I suspect is antipsychotic- induced EPS. I will make Cogentin available as needed. Continue current psychotropic medications as ordered. Continue other medications and care as ordered. Justification for Cont. Inpt. Impairment in reality construction. High risk for decompensation in less restrictive environment. Discharge Planning Per Dr. Tabares Problem Qualifiers (1) Psychotic disorder: Qualified Codes: F23 - Brief psychotic disorder Juvenal Chávez MD Jul 16, 2017 11:46
[2017-07-16 17:00] VITALS: BP 122/65; PULSE 98; RESP 16; TEMP 98.8; O2SAT 98
[2017-07-16] MEDS: QUEtiapine FUMARATE 300 MG TAB PO SCH (20:58)
[2017-07-17] MEDS: hydrALAZINE HCL 25 MG TAB PO SCH ×3 (06:36→21:16)
[2017-07-17 06:51] VITALS: BP 110/60; PULSE 106; RESP 18; TEMP 99; O2SAT 100
[2017-07-17] MEDS: ACYCLOVIR 800 MG TAB PO SCH (08:36)
[2017-07-17] MEDS: QUEtiapine FUMARATE 100 MG TAB PO SCH ×2 (08:36→12:00)
[2017-07-17] MEDS: LISINOPRIL 20 MG TAB PO SCH (08:36)
[2017-07-17] MEDS: NIFEdipine 90 MG SUSTAINED RELEASE TAB PO SCH (08:37)
[2017-07-17] MEDS: METOPROLOL SUCCINATE 50 MG EXTENDED RELEASE TAB PO SCH (08:37)
--- NOTE | 2017-07-17 14:48 | HHI.PYPN ---
Subjective Remarks Patient seen for follow up; chart reviewed. Discussion with nursing staff reported no change in behavior, compliant with medications. Patient was found walking on the unit, noted recall cooperative interview today. Patient states that everything has been "the same" and that his role in this life was not directed 10 by a book but by Logan. Patient continues to report interactions with Logan, the devil, "fireball" and his customer operations associate. Patient reports he drinking well denies any physical complaints at this time. She reports having spoken to his brother recently. Review of Systems Except as stated in HPI: all other systems reviewed are Neg Mental Status Examination Appearance: Appropriate Consciousness: Alert Orientation: Person, Place (at least) Motor Activity: Normal gait, Other (patient does have a resting tremor and some subtle cogwheeling but no hypomimia.) Speech: Unremarkable Language: Adequate Fund of Knowledge: Adequate Attention and Concentration: Inadequate Mood: Appropriate, Other ("excellent") Affect: Appropriate Thought Process & Associations: Loose associations, Tangential (less so today) Thought Content: Bizarre thinking, Hallucinations, Delusional Hallucination Type: Auditory (appears internally stimulated) Delusion Type: Bizarre, Paranoid, Other (judaism) Suicidal Ideation: No Suicidal Plan: No Suicidal Intention: No Homicidal Ideation: No Homicidal Plan: No Homicidal Intention: No Insight: Poor Judgment: Poor Results Vitals/IOs Vital Signs Date Time Temp Pulse Resp B/P (MAP) Pulse Ox O2 Delivery O2 Flow Rate FiO2 07/17/17 06:51 99.0 106 18 110/60 (77) 100 Intake and Output 07/17/17 07/17/17 07/17/17 07:59 15:59 23:59 Intake Total 240 ml Balance 240 ml Assessment & Plan Problem List: (1) Psychotic disorder ICD Codes: F29 - Unspecified psychosis not due to a substance or known physiological condition Status: Acute Assessment & Plan Patient continues with persistent judaism delusions and preoccupations. No behavioral disturbances since admission has become cooperative with staff. No physical complaints at this time patient to continue current treatment and currently awaiting placement to a nursing facility. Discharge planning in progress Justification for Cont. Inpt. At risk for further decompensation if at lower level of care Discharge Planning Discharged to nursing facility when acquired Problem Qualifiers (1) Psychotic disorder: Qualified Codes: F23 - Brief psychotic disorder Jhoan Tabares MD Jul 17, 2017 14:48
[2017-07-17 18:36] VITALS: BP 133/68; PULSE 99; RESP 18; TEMP 99.7; O2SAT 99
[2017-07-17] MEDS: QUEtiapine FUMARATE 300 MG TAB PO SCH (21:16)
[2017-07-18 05:52] VITALS: BP 113/69; PULSE 103; RESP 17; TEMP 98.9; O2SAT 100
[2017-07-18] MEDS: hydrALAZINE HCL 25 MG TAB PO SCH ×3 (06:41→22:00)
[2017-07-18] MEDS: NIFEdipine 90 MG SUSTAINED RELEASE TAB PO SCH (09:26)
[2017-07-18] MEDS: QUEtiapine FUMARATE 100 MG TAB PO SCH ×2 (09:26→12:29)
[2017-07-18] MEDS: ACYCLOVIR 800 MG TAB PO SCH (09:27)
[2017-07-18] MEDS: METOPROLOL SUCCINATE 50 MG EXTENDED RELEASE TAB PO SCH (09:27)
[2017-07-18] MEDS: LISINOPRIL 20 MG TAB PO SCH (09:27)
--- NOTE | 2017-07-18 15:15 | PD.TTN ---
Patient Problems 1. Discharge planning 2. Medication compliance 3. Knowledge deficit 4. Lack of coping skills Progress Toward Goals Provider Present: Dr. Master Cole, Dr. Binu Tabares Provider Input: 07/18/2017 - Patient remains a placement issue, compliant with medications, and without behavioral disturbance. 07/02/17 Patient remains psychotic and delusional. 06/27/2017 Patient will require placement in an Assisted Living Facility. He has a histroy of TBI, and fixed delusions that are shinto nature. 06/20/2017; patient is at the highest dosage of medication and might need to have an additional med added to level off his mood/behavior. Patient is new to unit and will be starting on a medication regiment. Will monitor progress of patient throughout the week. 06/18/2017 - Dr. Tabares reports the patient would like placement in an RETIREMENT. 06/25 - Patient will continue to be looked for in regards to placement. Not behavioral issues on the unit. 07/04/17 Patient continues to meet criteria. Patient has court tomorrow Nurse(s) Present: TONY Lara Nurse(s) Input: 06/20/2017; Patient is taking his medication, eating meals; however patient displays manic behavior, up doing the night hours with limited sleep. 06/25 patient is noted to have no behavioral issues on the unit and has been compliant with medications. denies side effects 07/04/17 Patient's nurse Sara reports patient is religioulsy preoccupied, continues to practice ballet exercies. Medication compliant. Patient is calm and cooperative. Psychiatric Counselors Present: [facility]on [facility], Simin Trejo [facility], Linda Chandler [facility] Psych Therapist Input: 07/18/2017 - Counselor reported that the patient remains delusional and religiously preoccupied. Patient's packet was faxed to [facility], and [facility] for admission addessment. 07/02/17 Patient remains medication compliant and continues to isolate. He does not saocialize with peers or staff. 06/27/2017 Counselor will continue to search for approparit placement for this patient, 06/20/2017 Counselor will begin the process for finding appropriate placement Counselor will be in contact with family memebers to recieve collateral information in regards to patient's progress. 06-18-2017 - Counselor has faxed patient's packet to [facility]. Counselor called [facility] and there are no beds available at this time. 06/25 patient is cooperative and calm on the unit and counselor will look for placement. Patient does not socialize with peers but is pleasant. 07/04/17 Patient is medication compliant. Patient presents calm, cooperative, affect appropriate. patient's speech is clear, and organized. Patient does present religiously preoccupied. Patient isolates, on unit Group Spec/RT/OT/SCMHIDT Present: Bel Velázquez, DEE, BRAYAN Restrepo, Zen Gallego, SCHMIDT Group Spec/RT/OT/SCHMIDT Input: 07/18/2017 - Patient refuses to attend groups. 07/02/17 Patient isolates to his room and the only group he has attended so far is coffee shop. 06/27/2017 Patient refuses most groups, although he will occasionally attemd fresh air and snack time. 06/20/2017: Attends most groups, very cooperate, very hyperverbal Patient is new to unit and has not attend groups yet. 06-18-2017 - Patient attends select groups and his behavior is appropriate. 07/04/17 Patient attends exercise occasionally Discharge Plan SMA Patient will be discharged to an appropriate RETIREMENT when accepted. Documentation Scribe: DANITZA Hitchcock Date Resolved: Jul 02, 2017 Simin Trejo [facility] Jul 18, 2017 15:15
[2017-07-18 17:00] VITALS: BP 109/62; PULSE 94; RESP 18; TEMP 98; O2SAT 98
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
[2017-07-18] MEDS: QUEtiapine FUMARATE 300 MG TAB PO SCH (22:00)
[2017-07-19 06:32] VITALS: BP 127/70; PULSE 98; RESP 16; TEMP 98; O2SAT 97
[2017-07-19] MEDS: hydrALAZINE HCL 25 MG TAB PO SCH ×3 (06:45→21:25)
[2017-07-19] MEDS: NIFEdipine 90 MG SUSTAINED RELEASE TAB PO SCH (08:08)
[2017-07-19] MEDS: LISINOPRIL 20 MG TAB PO SCH (08:09)
[2017-07-19] MEDS: METOPROLOL SUCCINATE 50 MG EXTENDED RELEASE TAB PO SCH (08:09)
[2017-07-19] MEDS: QUEtiapine FUMARATE 100 MG TAB PO SCH ×2 (08:09→11:09)
[2017-07-19] MEDS: ACYCLOVIR 800 MG TAB PO SCH (08:31)
--- NOTE | 2017-07-19 16:12 | HHI.PYPN ---
Subjective Remarks Patient seen for follow-up, chart reviewed. Discussion a historian reported that to happen no change. Patient continues to be calm and cooperative with staff. Patient was found lying in hospital bed, cooperative. Patient states that he has been feeling "excellent" reporting that he has the voices playing music in his head continue with this sikh delusions and preoccupations of God having a plan for him. Patient denies any physical complaints at this time reports eating and drinking well with no difficulty with bowel movement. Patient reports tolerating medications well. Review of Systems Except as stated in HPI: all other systems reviewed are Neg Mental Status Examination Appearance: Appropriate Consciousness: Alert Orientation: Person, Place (at least) Motor Activity: Normal gait, Other (patient does have a resting tremor and some subtle cogwheeling but no hypomimia.) Speech: Unremarkable Language: Adequate Fund of Knowledge: Adequate Attention and Concentration: Inadequate Memory: Unremarkable Mood: Appropriate, Other ("excellent") Affect: Appropriate Thought Process & Associations: Loose associations, Tangential (less so today) Thought Content: Bizarre thinking, Hallucinations, Delusional Hallucination Type: Auditory (appears internally stimulated) Delusion Type: Bizarre, Paranoid, Other (sikh) Suicidal Ideation: No Suicidal Plan: No Suicidal Intention: No Homicidal Ideation: No Homicidal Plan: No Homicidal Intention: No Insight: Poor Judgment: Poor Results Vitals/IOs Vital Signs Date Time Temp Pulse Resp B/P (MAP) Pulse Ox O2 Delivery O2 Flow Rate FiO2 07/19/17 06:32 98.0 98 16 127/70 (89) 97 Assessment & Plan Problem List: (1) Psychotic disorder ICD Codes: F29 - Unspecified psychosis not due to a substance or known physiological condition Status: Acute Assessment & Plan Patient continues to have fixed sikh delusions and preoccupations and continues to report auditory hallucinations that are not distressful to him. We 'll continue current treatment. Continue to monitor mood and behavior. Treatment team currently looking for assisted placement. Discharge planning in progress Justification for Cont. Inpt. At risk for further decompensation if at lower level of care Discharge Planning Patient to discharge her assisted when acquired Problem Qualifiers (1) Psychotic disorder: Qualified Codes: F23 - Brief psychotic disorder Jhoan Tabares MD Jul 19, 2017 16:12
[2017-07-19 18:15] VITALS: BP 112/59; PULSE 99; RESP 17; TEMP 98.7; O2SAT 98
[2017-07-19] MEDS: QUEtiapine FUMARATE 300 MG TAB PO SCH (21:25)
[2017-07-20] MEDS: hydrALAZINE HCL 25 MG TAB PO SCH ×3 (06:24→21:13)
[2017-07-20 06:25] VITALS: BP 118/64; PULSE 99; RESP 16; TEMP 97.9; O2SAT 97
[2017-07-20] MEDS: ACETAMINOPHEN 325 MG TAB PO PRN (06:32)
[2017-07-20] MEDS: ACYCLOVIR 800 MG TAB PO SCH (08:20)
[2017-07-20] MEDS: LISINOPRIL 20 MG TAB PO SCH (08:20)
[2017-07-20] MEDS: QUEtiapine FUMARATE 100 MG TAB PO SCH ×2 (08:20→11:06)
[2017-07-20] MEDS: NIFEdipine 90 MG SUSTAINED RELEASE TAB PO SCH (08:21)
[2017-07-20] MEDS: METOPROLOL SUCCINATE 50 MG EXTENDED RELEASE TAB PO SCH (08:21)
--- NOTE | 2017-07-20 16:10 | HHI.PYPN ---
Subjective Remarks Patient seen for follow-up, chart reviewed. Discussion or staff reported that patient has not been going to groups, was noted to be agitated last evening as his magazines were removed from his room. Patient was found in the room, cooperative today. Patient states that these feeling "excellent", was requesting help to the L2 shave today. Patient states that he had gotten upset yesterday because he had removed magazines from his room but was explained to him that he needed to do that to be able to clean after which he stated he understood. Patient denies any physical complaints at this time continue with amish preoccupation regarding Logan Silvino, the devil, his esthetic dermatologist and continues with auditory hallucinations. Patient denies any SI or HI. Review of Systems Except as stated in HPI: all other systems reviewed are Neg Mental Status Examination Appearance: Appropriate Consciousness: Alert Orientation: Person, Place (at least) Motor Activity: Normal gait, Other (patient does have a resting tremor and some subtle cogwheeling but no hypomimia.) Speech: Unremarkable Language: Adequate Fund of Knowledge: Adequate Attention and Concentration: Inadequate Memory: Unremarkable Mood: Appropriate, Other ("excellent") Affect: Irritable (slightly today) Thought Process & Associations: Loose associations, Tangential (less so today) Thought Content: Bizarre thinking, Hallucinations, Delusional Hallucination Type: Auditory (appears internally stimulated) Delusion Type: Bizarre, Paranoid, Other (amish) Suicidal Ideation: No Suicidal Plan: No Suicidal Intention: No Homicidal Ideation: No Homicidal Plan: No Homicidal Intention: No Insight: Poor Judgment: Poor Results Vitals/IOs Vital Signs Date Time Temp Pulse Resp B/P (MAP) Pulse Ox O2 Delivery O2 Flow Rate FiO2 07/20/17 06:25 97.9 99 16 118/64 (82) 97 Intake and Output 07/20/17 07/20/17 07/21/17 08:00 16:00 00:00 Intake Total 480 ml 720 ml Balance 480 ml 720 ml Assessment & Plan Problem List: (1) Psychotic disorder ICD Codes: F29 - Unspecified psychosis not due to a substance or known physiological condition Status: Acute Assessment & Plan Patient at this time continues to persist with amish delusions, auditory hallucinations, has no had any behavioral dyscontrol aside from last evening which she was upset but was not physically aggressive. Continue current treatment. Continue to monitor mood and behavior. Discharge planning in progress Justification for Cont. Inpt. At risk for further decompensation at lower level of care Discharge Planning 2 discharge edition facility when one is acquired Problem Qualifiers (1) Psychotic disorder: Qualified Codes: F23 - Brief psychotic disorder Jhoan Tabares MD Jul 20, 2017 16:10
[2017-07-20 18:17] VITALS: BP 115/65; PULSE 101; RESP 18; TEMP 98.1; O2SAT 97
[2017-07-20] MEDS: QUEtiapine FUMARATE 300 MG TAB PO SCH (21:13)
[2017-07-21 05:43] VITALS: BP 117/69; PULSE 102; RESP 16; TEMP 98; O2SAT 97
[2017-07-21] MEDS: hydrALAZINE HCL 25 MG TAB PO SCH ×3 (06:06→21:17)
[2017-07-21] MEDS: LISINOPRIL 20 MG TAB PO SCH (08:32)
[2017-07-21] MEDS: ACYCLOVIR 800 MG TAB PO SCH (08:32)
[2017-07-21] MEDS: METOPROLOL SUCCINATE 50 MG EXTENDED RELEASE TAB PO SCH (08:33)
[2017-07-21] MEDS: NIFEdipine 90 MG SUSTAINED RELEASE TAB PO SCH (08:33)
[2017-07-21] MEDS: QUEtiapine FUMARATE 100 MG TAB PO SCH ×2 (08:33→12:07)
--- NOTE | 2017-07-21 14:46 | HHI.PYPN ---
Subjective Remarks Patient was seen and case discussed with nursing. Patient remains religiously preoccupied. He is doing ballet exercises during the interview. Appears defensive when asked about his activities. Tolerating medications well Mental Status Examination Appearance: Appropriate Consciousness: Alert Orientation: Person, Place (at least) Motor Activity: Normal gait, Other (patient does have a resting tremor and some subtle cogwheeling but no hypomimia.) Speech: Unremarkable Language: Adequate Fund of Knowledge: Adequate Attention and Concentration: Inadequate Memory: Unremarkable Mood: Appropriate, Other ("excellent") Affect: Irritable (slightly today) Thought Process & Associations: Loose associations, Tangential (less so today) Thought Content: Bizarre thinking, Hallucinations, Delusional Hallucination Type: Auditory (appears internally stimulated) Delusion Type: Bizarre, Paranoid, Other (restorationism) Suicidal Ideation: No Suicidal Plan: No Suicidal Intention: No Homicidal Ideation: No Homicidal Plan: No Homicidal Intention: No Insight: Poor Judgment: Poor Results Vitals/IOs Vital Signs Date Time Temp Pulse Resp B/P (MAP) Pulse Ox O2 Delivery O2 Flow Rate FiO2 07/21/17 05:43 98.0 102 16 117/69 (85) 97 Assessment & Plan Problem List: (1) Psychotic disorder ICD Codes: F29 - Unspecified psychosis not due to a substance or known physiological condition Status: Acute Assessment & Plan Continue current treatment plan Justification for Cont. Inpt. Patient would decompensate in a less restrictive setting Problem Qualifiers (1) Psychotic disorder: Qualified Codes: F23 - Brief psychotic disorder Manny Camacho DO Jul 21, 2017 14:46
[2017-07-21 16:19] VITALS: BP 141/66; PULSE 104; RESP 18; TEMP 98.2; O2SAT 97
[2017-07-21] MEDS: QUEtiapine FUMARATE 300 MG TAB PO SCH (21:17)
[2017-07-22 05:13] VITALS: BP 111/70; PULSE 94; RESP 16; TEMP 98.1; O2SAT 98
[2017-07-22] MEDS: hydrALAZINE HCL 25 MG TAB PO SCH ×3 (06:06→21:37)
[2017-07-22] MEDS: ACYCLOVIR 800 MG TAB PO SCH (08:48)
[2017-07-22] MEDS: QUEtiapine FUMARATE 100 MG TAB PO SCH ×2 (08:48→12:08)
[2017-07-22] MEDS: NIFEdipine 90 MG SUSTAINED RELEASE TAB PO SCH (08:48)
[2017-07-22] MEDS: LISINOPRIL 20 MG TAB PO SCH (08:48)
[2017-07-22] MEDS: METOPROLOL SUCCINATE 50 MG EXTENDED RELEASE TAB PO SCH (08:48)
--- NOTE | 2017-07-22 13:13 | HHI.PYPN ---
Subjective Remarks Patient was seen and case discussed with nursing. Patient remains floridly psychotic and religiously preoccupied. He is perseverant on 5 into being named fireball. Compliant with medications and behaving well on the unit Mental Status Examination Appearance: Appropriate Consciousness: Alert Orientation: Person, Place (at least) Motor Activity: Normal gait, Other (patient does have a resting tremor and some subtle cogwheeling but no hypomimia.) Speech: Unremarkable Language: Adequate Fund of Knowledge: Adequate Attention and Concentration: Inadequate Memory: Unremarkable Mood: Appropriate, Other ("excellent") Affect: Irritable (slightly today) Thought Process & Associations: Loose associations, Tangential (less so today) Thought Content: Bizarre thinking, Hallucinations, Delusional Hallucination Type: Auditory (appears internally stimulated) Delusion Type: Bizarre, Paranoid, Other (jew) Suicidal Ideation: No Suicidal Plan: No Suicidal Intention: No Homicidal Ideation: No Homicidal Plan: No Homicidal Intention: No Insight: Poor Judgment: Poor Results Vitals/IOs Vital Signs Date Time Temp Pulse Resp B/P (MAP) Pulse Ox O2 Delivery O2 Flow Rate FiO2 07/22/17 05:13 98.1 94 16 111/70 (84) 98 Assessment & Plan Problem List: (1) Psychotic disorder ICD Codes: F29 - Unspecified psychosis not due to a substance or known physiological condition Status: Acute Assessment & Plan Continue current treatment plan Justification for Cont. Inpt. Patient will decompensate in a less restrictive setting Problem Qualifiers (1) Psychotic disorder: Qualified Codes: F23 - Brief psychotic disorder Manny Camacho DO Jul 22, 2017 13:13
[2017-07-22 16:01] VITALS: BP 131/69; PULSE 114; RESP 18; TEMP 101.9; O2SAT 96
[2017-07-22] MEDS: QUEtiapine FUMARATE 300 MG TAB PO SCH (21:37)
[2017-07-23] MEDS: hydrALAZINE HCL 25 MG TAB PO SCH ×3 (06:16→21:47)
[2017-07-23 06:33] VITALS: BP 117/72; PULSE 90; RESP 16; TEMP 99; O2SAT 97
[2017-07-23] MEDS: QUEtiapine FUMARATE 100 MG TAB PO SCH ×2 (08:22→11:03)
[2017-07-23] MEDS: NIFEdipine 90 MG SUSTAINED RELEASE TAB PO SCH (08:22)
[2017-07-23] MEDS: METOPROLOL SUCCINATE 50 MG EXTENDED RELEASE TAB PO SCH (08:22)
[2017-07-23] MEDS: LISINOPRIL 20 MG TAB PO SCH (08:22)
[2017-07-23] MEDS: ACYCLOVIR 800 MG TAB PO SCH (08:22)
--- NOTE | 2017-07-23 10:30 | PD.TTN ---
Patient Problems 1. Discharge planning 2. Medication compliance 3. Knowledge deficit 4. Lack of coping skills Progress Toward Goals Provider Present: Dr. Master Cole, Dr. Binu Tabares Provider Input: 07/23/2017 - Dr. Tabares reports the patient remains compliant with medications and without behavoral disturbance. 07/18/2017 - Patient remains a placement issue, compliant with medications, and without behavioral disturbance. 07/02/17 Patient remains psychotic and delusional. 06/27/2017 Patient will require placement in an Assisted Living Facility. He has a histroy of TBI, and fixed delusions that are taoist nature. 06/20/2017; patient is at the highest dosage of medication and might need to have an additional med added to level off his mood/behavior. Patient is new to unit and will be starting on a medication regiment. Will monitor progress of patient throughout the week. 06/18/2017 - Dr. Tabares reports the patient would like placement in an [facility]. 06/25 - Patient will continue to be looked for in regards to placement. Not behavioral issues on the unit. 07/04/17 Patient continues to meet criteria. Patient has court tomorrow Nurse(s) Present: TONY Lara Nurse(s) Input: 06/20/2017; Patient is taking his medication, eating meals; however patient displays manic behavior, up doing the night hours with limited sleep. 06/25 patient is noted to have no behavioral issues on the unit and has been compliant with medications. denies side effects 07/04/17 Patient's nurse Sara reports patient is religioulsy preoccupied, continues to practice ballet exercies. Medication compliant. Patient is calm and cooperative. Psychiatric Counselors Present: [facility]on [facility], Simin Trejo [facility], Linda Chandler [facility] Psych Therapist Input: 07/23/2017 - Patient remains pleasant, religiously preoccupied, and delusional. 07/18/2017 - Counselor reported that the patient remains delusional and religiously preoccupied. Patient's packet was [facility] to [facility]. 07/02/17 Patient remains medication compliant and continues to isolate. He does not saocialize with peers or staff. 06/27/2017 Counselor will continue to search for approparit placement for this patient, 06/20/2017 Counselor will begin the process for finding appropriate placement Counselor will be in contact with family memebers to recieve collateral information in regards to patient's progress. 06-18-2017 - Counselor has faxed patient's packet to [facility] for admissions review. Counselor called [facility] and there are no beds available at this time. 06/25 patient is cooperative and calm on the unit and counselor will look for placement. Patient does not socialize with peers but is pleasant. 07/04/17 Patient is medication compliant. Patient presents calm, cooperative, affect appropriate. patient's speech is clear, and organized. Patient does present religiously preoccupied. Patient isolates, on unit Group Spec/RT/OT/SCHMIDT Present: Bel Velázquez, GPS, Teresa Dexter, SCHMIDT, Kane Solis, OT, Zen Gallego, SCHMIDT Group Spec/RT/OT/SCHMIDT Input: 07/23/2017 - Patient refuses to attend groups. 07/18/2017 - Patient refuses to attend groups. 07/02/17 Patient isolates to his room and the only group he has attended so far is coffee shop. 06/27/2017 Patient refuses most groups, although he will occasionally attemd fresh air and snack time. 06/20/2017: Attends most groups, very cooperate, very hyperverbal Patient is new to unit and has not attend groups yet. 06-18-2017 - Patient attends select groups and his behavior is appropriate. 07/04/17 Patient attends exercise occasionally Discharge Plan SMA Patient will be discharged to an appropriate [facility] when accepted. Documentation Scribe: DANITZA Hitchcock Date Resolved: Jul 23, 2017 Simin Trejo [facility] Jul 23, 2017 10:30
--- NOTE | 2017-07-23 16:39 | HHI.PYPN ---
Subjective Remarks Patient seen for follow-up, chart review. Discussion she staff reported the patient been noted to be much more quieter today. Patient was found lying in hospital bed, cooperative. Patient states that he is taking a break from exercising today but haven't doing gets nearly every day since his admission. Patient states that he is feeling "excellent" and his mood is the same, and reporting that "everything is the same". Patient began and start about "fireball" and being that he has noticed for the past 4 weeks to be related with the devil as well as speaking to have been denying any command auditory hallucinations. Patient continues to be religiously preoccupied along with continued auditory hallucinations. Review of Systems Except as stated in HPI: all other systems reviewed are Neg Mental Status Examination Appearance: Appropriate Consciousness: Alert Orientation: Person, Place (at least) Motor Activity: Normal gait, Other (patient does have a resting tremor and some subtle cogwheeling but no hypomimia.) Speech: Unremarkable Language: Adequate Fund of Knowledge: Adequate Attention and Concentration: Inadequate Memory: Unremarkable Mood: Appropriate, Other ("excellent") Affect: Irritable (slightly today) Thought Process & Associations: Loose associations, Tangential (less so today) Thought Content: Bizarre thinking, Hallucinations, Delusional Hallucination Type: Auditory Delusion Type: Bizarre, Other (sabianist) Suicidal Ideation: No Suicidal Plan: No Suicidal Intention: No Homicidal Ideation: No Homicidal Plan: No Homicidal Intention: No Insight: Poor Judgment: Poor Results Vitals/IOs Vital Signs Date Time Temp Pulse Resp B/P (MAP) Pulse Ox O2 Delivery O2 Flow Rate FiO2 07/23/17 06:33 99.0 90 16 117/72 (87) 97 Intake and Output 07/23/17 07/23/17 07/24/17 08:00 16:00 00:00 Intake Total 240 ml 240 ml Balance 240 ml 240 ml Assessment & Plan Problem List: (1) Psychotic disorder ICD Codes: F29 - Unspecified psychosis not due to a substance or known physiological condition Status: Acute Assessment & Plan Patient continues with persistent sabianist delusions and preoccupation along with auditory hallucinations from the same. Patient anxiety beheld disturbances , cooperative pleasant with staff. Patient compliant with treatment. Continue medication regimen. Continue monitor mood and behavior. Patient awaiting placement to nursing facility. Discharge planning in progress Justification for Cont. Inpt. At risk for further decompensation if at lower level of care Discharge Planning To be discharged [facility] to [facility] and rehabilitation Problem Qualifiers (1) Psychotic disorder: Qualified Codes: F23 - Brief psychotic disorder Jhoan Tabares MD Jul 23, 2017 16:39
[2017-07-23] MEDS: ACETAMINOPHEN 325 MG TAB PO PRN (18:04)
[2017-07-23 18:24] VITALS: BP 107/61; PULSE 109; RESP 15; TEMP 102.5; O2SAT 97
[2017-07-23 19:19] VITALS: BP 113/69; PULSE 100; TEMP 99.9; O2SAT 97
[2017-07-23 19:50] VITALS: BP 97/57; PULSE 94; RESP 16; TEMP 98; O2SAT 98
--- NOTE | 2017-07-23 20:02 | RADRPT ---
EXAM DATE/TIME: 07/23/2017 19:34 [facility] COMPARISON: CHEST SINGLE AP, June 25, 2017, 20:45. INDICATIONS : Fever and short of breath. MEDICAL HISTORY : Hypertension. HIV. Hepatitis C. Stroke. SURGICAL HISTORY : None. ENCOUNTER: Initial ACUITY: 1 day PAIN SCORE: 0/10 LOCATION: Bilateral chest FINDINGS: A single view of the chest demonstrates the lungs to be symmetrically aerated without evidence of mas s, infiltrate or effusion. The cardiomediastinal contours are unremarkable. Osseous structures are intact. CONCLUSION: Normal examination. Sherif Steel MD on July 23, 2017 at 20:00 Board Certified Radiologist. This report was verified electronically.
[2017-07-23] MEDS ORDERED: Vancomycin Consult Pharmacy 1 EA OTHER SCH (20:15)
[2017-07-23 20:53] LABS: AUTOMATED NEUTROPHIL # 3.7 TH/MM3 (1.8-7.7); BASOPHIL % 0.4 % (0.0-2.0); EOSINOPHIL # 0.9 TH/MM3 (0-0.4); EOSINOPHIL % 7.9 % (0.0-4.0); HEMATOCRIT 42.7 % (39.0-51.0); HEMOGLOBIN 14.8 GM/DL (13.0-17.0); LYMPH % 50.8 % (9.0-44.0); LYMPHOCYTE # 5.5 TH/MM3 (1.0-4.8); MEAN CELL VOLUME 87.7 FL (80.0-100.0); MEAN CORPUSCULAR HEMOGLOBIN 30.4 PG (27.0-34.0); MEAN CORPUSCULAR HGB CONC 34.7 % (32.0-36.0); MEAN PLATELET VOLUME 9.4 FL (7.0-11.0); MONO % 6.5 % (0.0-8.0); MONOCYTE # 0.7 TH/MM3 (0-0.9); NEUT % 34.4 % (16.0-70.0); PLATELET COUNT 172 TH/MM3 (150-450); RED BLOOD COUNT 4.86 MIL/MM3 (4.50-5.90); RED CELL DISTRIBUTION WIDTH 13.3 % (11.6-17.2); WHITE BLOOD COUNT 10.8 TH/MM3 (4.0-11.0)
[2017-07-23 21:00] LABS: INTERNATIONAL NORMALIZED RATIO 1.2 RATIO; PROTHROMBIN TIME - PATIENT 12.4 SEC (9.8-11.6)
[2017-07-23] MEDS: QUEtiapine FUMARATE 300 MG TAB PO SCH (21:00)
[2017-07-23] MEDS ORDERED: VANCOMYCIN 1,000 MG/NS 250 ML IV SCH ×2 (21:00)
[2017-07-23] MEDS ORDERED: PIPERACIL-TAZO 4.5 GM PREMIX 100 ML IV SCH (21:00)
[2017-07-23 21:08] LABS: CREATININE 1.21 MG/DL (0.60-1.30)
[2017-07-23 21:11] LABS: TOTAL BILIRUBIN ADULT 0.5 MG/DL (0.2-1.0)
--- NOTE | 2017-07-23 21:16 | HHI.PR ---
Subjective Remarks [facility] was reconsulted at around 6:30 PM because of patient having fevers. Chart reviewed. Patient was having fever starting around 4 PM. From today shift providers orders reviewed. I have called patient's nurse to transfer the patient to med psych unit for sepsis workup/administration of antibiotics. Came to see patient at the bedside at med psych unit. Patient is very pleasant, able to give most of the history although he does wonders into his auditory and visual hallucination and obsession with scientologist thoughts. He denies any specific symptoms. He was sitting on his bed. He reports he only noted his fever this morning after he was even dancing ballet no cough no diarrhea no loose stool denies urinary symptoms, no ulcers anywhere that he knows denies any sinus symptoms no soar throat or abdominal sated his last CD4 was in 400s with Dr Poon - stated he is no longer on meds because of side effect than was told he took a medicine for a year which is a cure was diagnosed about 40yrs ago in [place] from blood test per him On examination, patient was noted to have generalized diffuse blanching erythema on his torso and bilateral upper extremities. When asked about this, patient stated this only started today. Nursing staff in psychiatry unit also confirms this. Nursing staff confirmed that this was not worsening as the day goes on. Patient also agrees. Objective Vital Signs Date Time Temp Pulse Resp B/P (MAP) Pulse Ox O2 Delivery O2 Flow Rate FiO2 07/23/17 19:50 98.0 94 16 97/57 (70) 98 07/23/17 19:19 99.9 100 113/69 (84) 97 07/23/17 18:24 102.5 109 15 107/61 (76) 97 07/23/17 06:33 99.0 90 16 117/72 (87) 97 I/O 07/22/17 07/22/17 07/22/17 07/23/17 07/23/17 07/23/17 07:00 15:00 23:00 07:00 15:00 23:00 Intake Total 480 ml Balance 480 ml Intake Oral 480 ml Result Diagram: 07/23/172008 Objective Remarks Awake, alert, oriented. Generalized diffuse blanching erythema on his torso both anterior and posterior. Same erythema on his bilateral upper extremity sparing the palms. abdomen is soft and nontender. No rebound. No guarding. Heart rate is regular, no murmur appreciated. Lung exam is benign, no rales. Bilateral lower extremities with no calf asymmetry or edema. Patient is ambulatory. A/P Assessment and Plan Impression: Fever Generalized blanching erythema Possible viral exanthem pain HIV - patient on Odefsey 1 tab daily for HIV but has not received since this admission due to no availability at our hospital bipolar disorder/schizophrenia management per psychiatry. Hypertension- Elevated velocities in the proximal and mid right renal artery; Nonvisualization of the left mid renal artery with elevated velocity in the distal portion of the renal artery; Echogenic kidneys characteristic of medical renal disease. Hepatitis C Plan: Blood cultures, UA, urine culture will follow up. CBC with differential RPR ID consult likely viral exanthem unsure why pt is on acyclovir, renal function ok so far would need to decide on starting HIV meds again as well for now resume current meds low bp reading once or twice, but asymptomatic, pt is thin body habitus, doubt sepsis causing this- overmedication of BP meds possibility and may need adjustment measure BP sitting up always Moreover, patient reports of having drowsiness with Seroquel use. We'll need to discuss with psychiatry on further adjustment of Seroquel possibly causing orthostatic hypotension. Discharge Planning per clinical course and psychiatry team awaiting on placement as well per patient Issac Solano MD Jul 23, 2017 21:16
[2017-07-23 21:45] VITALS: BP 98/61; PULSE 86; TEMP 97.9; O2SAT 98
[2017-07-23 21:51] LABS: BANDS 4 % (0-6); BASOPHILS 1 % (0-2); LYMPHOCYTES 45 % (9-44); MONOCYTES 10 % (0-8); NEUTROPHIL # MANUAL DIFF 3.9 TH/MM3 (1.8-7.7); OVALOCYTES 1+ (NORMAL); POLYS (SEG NEUTROPHILS) 32 % (16-70); SPHEROCYTES 1+ (NORMAL)
[2017-07-23 22:00] LABS: ALBUMIN 3.6 GM/DL (3.4-5.0); AST (GOT) 192 U/L (15-37); BICARBONATE 25.4 MEQ/L (21.0-32.0); BLOOD UREA NITROGEN 23 MG/DL (7-18); CALCIUM 9.2 MG/DL (8.5-10.1); CHLORIDE 99 MEQ/L (98-107); GLOMERULAR FILTRATION RATE 62 ML/MIN (>89); GLUCOSE,RANDOM 105 MG/DL (74-106); SODIUM (NA) 130 MEQ/L (136-145)
[2017-07-23 22:01] LABS: ALT (GPT) 185 U/L (12-78)
[2017-07-23 22:03] LABS: ALKALINE PHOSPHATASE 264 U/L (45-117); TOTAL BILIRUBIN ADULT 0.5 MG/DL (0.2-1.0)
[2017-07-23 22:16] LABS: BILIRUBIN, URINE NEG (NEG); BLOOD, URINE NEG (NEG); GLUCOSE,URINE NEG (NEG); KETONE, URINE NEG (NEG); NITRITE,URINE NEG (NEG); URINE COLOR YELLOW (YELLW/STRAW); URINE LEUKOCYTE ESTERASE NEG (NEG)
[2017-07-24] MEDS ORDERED: PIPERACIL-TAZO 4.5 GM PREMIX 100 ML IV SCH (03:45)
[2017-07-24] MEDS: VANCOMYCIN 1,000 MG/NS 250 ML IV SCH ×4 (04:00→14:26)
[2017-07-24] MEDS: hydrALAZINE HCL 25 MG TAB PO SCH ×3 (06:00→21:08)
[2017-07-24] MEDS: PIPERACIL-TAZO 4.5 GM PREMIX 100 ML IV SCH ×2 (06:00→11:56)
[2017-07-24 06:27] VITALS: BP 116/60; PULSE 110; RESP 16; TEMP 100.5; O2SAT 95
[2017-07-24] MEDS: ACYCLOVIR 800 MG TAB PO SCH (09:00)
[2017-07-24] MEDS: METOPROLOL SUCCINATE 50 MG EXTENDED RELEASE TAB PO SCH (09:00)
[2017-07-24] MEDS: QUEtiapine FUMARATE 100 MG TAB PO SCH ×2 (09:00→11:56)
[2017-07-24] MEDS: LISINOPRIL 20 MG TAB PO SCH (09:00)
[2017-07-24] MEDS: NIFEdipine 90 MG SUSTAINED RELEASE TAB PO SCH (09:00)
--- NOTE | 2017-07-24 09:20 | HHI.PYPN ---
Subjective Remarks Patient seen for follow-up, chart reviewed. Discussion she staff reported the patient has hadn't not had any behavioral disturbances or issues, hasn't pleasant, recent UA was negative but was noted to have generalized rash with elevated temperatures recently. Patient was recently transferred from the inpatient psychiatry unit to the medical/psychiatry unit for further medical management as patient had been having increased temperature readings as well as began with a generalized rash yesterday evening was transferred for further evaluation. Patient was found sitting in hospital bed, cooperative. Patient states that began noticing a rash on his chest which was generalized to address his body yesterday evening and feeling "hot" but reports having slept well. Patient states that everything is a record same" continued with auditory hallucinations of music by a being he calls "fireball". Patient continued to persist alevism delusions and auditory hallucinations. Denies SI or HI. Review of Systems Except as stated in HPI: all other systems reviewed are Neg Mental Status Examination Appearance: Appropriate Consciousness: Alert Orientation: Person, Place (at least) Motor Activity: Normal gait, Other (patient does have a resting tremor and some subtle cogwheeling but no hypomimia.) Speech: Unremarkable Language: Adequate Fund of Knowledge: Adequate Attention and Concentration: Inadequate Memory: Unremarkable Mood: Appropriate, Other ("excellent") Affect: Irritable (slightly today) Thought Process & Associations: Loose associations, Tangential (less so today) Thought Content: Bizarre thinking, Hallucinations, Delusional Hallucination Type: Auditory Delusion Type: Bizarre, Other (alevism) Suicidal Ideation: No Suicidal Plan: No Suicidal Intention: No Homicidal Ideation: No Homicidal Plan: No Homicidal Intention: No Insight: Poor Judgment: Poor Results Labs Labs reviewed Test 07/23/17 20:09 07/23/17 20:14 07/23/17 20:20 07/24/17 06:46 White Blood Count 10.8 TH/MM3 Red Blood Count 4.86 MIL/MM3 Hemoglobin 14.8 GM/DL Hematocrit 42.7 % Mean Corpuscular Volume 87.7 FL Mean Corpuscular Hemoglobin 30.4 PG Mean Corpuscular Hemoglobin Concent 34.7 % Red Cell Distribution Width 13.3 % Platelet Count 172 TH/MM3 Mean Platelet Volume 9.4 FL Neutrophils (%) (Auto) 34.4 % Lymphocytes (%) (Auto) 50.8 % Monocytes (%) (Auto) 6.5 % Eosinophils (%) (Auto) 7.9 % Basophils (%) (Auto) 0.4 % Neutrophils # (Auto) 3.7 TH/MM3 Lymphocytes # (Auto) 5.5 TH/MM3 Monocytes # (Auto) 0.7 TH/MM3 Eosinophils # (Auto) 0.9 TH/MM3 Basophils # (Auto) 0.0 TH/MM3 CBC Comment AUTO DIFF Differential Total Cells Counted 100 Neutrophils % (Manual) 32 % Band Neutrophils % 4 % Lymphocytes % 45 % Monocytes % 10 % Eosinophils % 8 % Basophils % 1 % Neutrophils # (Manual) 3.9 TH/MM3 Differential Comment FINAL DIFF MANUAL Atypical Lymphocytes % Platelet Estimate NORMAL Platelet Morphology Comment NORMAL Spherocytes 1+ Ovalocytes 1+ Prothrombin Time 12.4 SEC Prothromb Time International Ratio 1.2 RATIO Activated Partial Thromboplast Time 25.9 SEC Blood Urea Nitrogen 23 MG/DL Creatinine 1.20 MG/DL Random Glucose 105 MG/DL Total Protein 7.0 GM/DL Albumin 3.6 GM/DL Calcium Level 9.2 MG/DL Alkaline Phosphatase 264 U/L Aspartate Amino Transf (AST/SGOT) 192 U/L Alanine Aminotransferase (ALT/SGPT) 185 U/L Total Bilirubin 0.5 MG/DL Sodium Level 130 MEQ/L Potassium Level 4.7 MEQ/L Chloride Level 99 MEQ/L Carbon Dioxide Level 25.4 MEQ/L Anion Gap 6 MEQ/L Estimat Glomerular Filtration Rate 62 ML/MIN Lactic Acid Level 1.5 mmol/L Urine Color YELLOW Urine Turbidity CLEAR Urine pH 6.0 Urine Specific [place] 1.012 Urine Protein TRACE mg/dL Urine Glucose (UA) NEG mg/dL Urine Ketones NEG mg/dL Urine Occult Blood NEG Urine Nitrite NEG Urine Bilirubin NEG Urine Urobilinogen LESS THAN 2.0 MG/DL Urine Leukocyte Esterase NEG Urine RBC LESS THAN 1 /hpf Urine WBC 1 /hpf Microscopic Urinalysis Comment CULT NOT INDICATED Date/Time Source Procedure Growth Status 07/23/17 20:14 Blood Peripheral Aerobic Blood Culture Pending Received 07/23/17 20:14 Blood Peripheral Anaerobic Blood Culture Pending Received Vitals/IOs Vital Signs Date Time Temp Pulse Resp B/P (MAP) Pulse Ox O2 Delivery O2 Flow Rate FiO2 07/24/17 06:27 100.5 110 16 116/60 (78) 95 Intake and Output 107/24/17 07/24/17 07:59 15:59 23:59 Intake Total 240 ml 240 ml Balance 240 ml 240 ml Assessment & Plan Problem List: (1) Psychotic disorder ICD Codes: F29 - Unspecified psychosis not due to a substance or known physiological condition Status: Acute Assessment & Plan Patient at this time transferred to the medical psychiatry unit due to elevated temperature readings as well as a generalized rash noted. Patient pending infectious disease consult, continued evaluation and a workup for recent generalized rash in the context of patient at risk for opportunistic infection due to his HIV status. Patient to continue recommendations as per primary medical team. Discharge planning in progress Justification for Cont. Inpt. At risk for further decompensation if at lower level of care Discharge Planning Possibly to discharge to [facility] upon confirmation of acceptance. Problem Qualifiers (1) Psychotic disorder: Qualified Codes: F23 - Brief psychotic disorder Jhoan Tabares MD Jul 24, 2017 09:20
--- NOTE | 2017-07-24 11:49 | HHI.PR ---
Subjective Remarks Follow-up for diffuse rash, fever in a patient with HIV. Patient is currently doing well. However, he continues to have fever. Ambulating well, tolerating diet well. Objective Vitals Vital Signs Date Time Temp Pulse Resp B/P (MAP) Pulse Ox O2 Delivery O2 Flow Rate FiO2 07/24/17 06:27 100.5 110 16 116/60 (78) 95 07/23/17 21:45 97.9 86 98/61 (73) 98 07/23/17 19:50 98.0 94 16 97/57 (70) 98 07/23/17 19:19 99.9 100 113/69 (84) 97 07/23/17 18:24 102.5 109 15 107/61 (76) 97 I/O 07/23/17 07/23/17 07/23/17 07/24/17 07/24/17 07/24/17 07:00 15:00 23:00 07:00 15:00 23:00 Intake Total 480 ml 600 ml 240 ml Balance 480 ml 600 ml 240 ml Intake Oral 480 ml 600 ml 240 ml # Voids 2 Result Diagram: 07/23/17200807/23/172008 Imaging Last Impressions Chest X-Ray 07/23/17 1850 Signed Impressions: Service Date/Time: Sunday, July 23, 2017 19:34 - CONCLUSION: Normal examination. Sherif Steel MD Head CT 06/20/17 0000 Signed Impressions: Service Date/Time: June 03:11 - CONCLUSION: 1. No acute hemorrhage or mass effect. 2. Areas of encephalomalacia in the left temporal and parietal lobes. 3. Mild to moderate atrophic change. Simone Wolf MD Renal Ultrasound 06/19/17 0000 Signed Impressions: Service Date/Time: Monday, June 19, 2017 16:47 - CONCLUSION: 1. Elevated velocities in the proximal and mid right renal artery. 2. Nonvisualization of the left mid renal artery with elevated velocity in the distal portion of the renal artery. 3. Echogenic kidneys characteristic of medical renal disease. There is no hydronephrosis. Simone Wolf MD Objective Remarks GENERAL: Alert, NAD. SKIN: Warm and dry. Diffuse maculopapular rash. HEAD: Normocephalic. EYES: No scleral icterus. No injection or drainage. NECK: Supple, trachea midline. No JVD or lymphadenopathy. CARDIOVASCULAR: Regular rate and rhythm without murmurs, gallops, or rubs. RESPIRATORY: Breath sounds equal bilaterally. No accessory muscle use. GASTROINTESTINAL: Abdomen soft, non-tender, nondistended. MUSCULOSKELETAL: No cyanosis, or edema. BACK: Nontender without obvious deformity. No CVA tenderness. Procedures NONE A/P Problem List: (1) Hypertension ICD Code: I10 - Essential (primary) hypertension Status: Chronic (2) HIV (human immunodeficiency virus infection) ICD Code: Z21 - Asymptomatic human immunodeficiency virus [HIV] infection status Status: Chronic (3) Viral rash ICD Code: B09 - Unspecified viral infection characterized by skin and mucous membrane lesions Assessment and Plan Patient is a 61-year-old male with primary medical history of HTN, HIV, bipolar , schizoaffective disorder who came into the hospital under [place] for psychiatric evaluation. Hospitalist service was reconsulted due to high grade fever and diffuse rash. - Viral rash - Patient's rash is possibly due to viral etiology. Vanc/Zosyn was given. We can likely discontinue. - Discussed with ID (Dr. Palacios). We will order Measles IGG, IGM - Hypertension - Currently well controlled. Continue Lisinopril and Hydralazine. - HIV - Hep C - Patient used to be on Odefsey but has not taken it in 43 days. - Follows up with ID Dr. Kapadia. Full code. Ambulation. Problem Qualifiers (1) Hypertension: Qualified Codes: I10 - Essential (primary) hypertension London Herzog DO Jul 24, 2017 11:49
[2017-07-24 14:24] VITALS: BP 101/55; PULSE 104; TEMP 99.6
--- NOTE | 2017-07-24 16:31 | PD.ID.CON ---
History of Present Illness Service ID Consult Requested By Dr Herzog Reason for Consult febrile illness with rash Primary Care Physician Unknown Diagnoses: History of Present Illness chart reviewed evelio Herzog pt is a difficult historian 61 yo male with HIV disease, off HIV tx for 30+ days, stated his last CD4 cunt was 459 and VL undetectable, can not explain the reason for stopping medx He develop diffuse none pruritic rash most prominent on the trunk and sparse on extremeties, face and fever up to 102.3 denes oral lesions. denies new medx He feels o/w OK Denies exposure to peaople with fever or rash Endorses normal childhood vaccination schedule Review of Systems Except as stated in HPI: all other systems reviewed are Neg Past Family Social History Allergies: Coded Allergies: Sulfa (Sulfonamide Antibiotics) (Unverified Allergy, Severe, Hives, ) Past Medical History HTN Hep C HIV Bipolar disorder Schizoaffective disorder Schizophrenia Absent temporal lobe syndrome Past Surgical History Right ankle surgery secondary to bone spurs Active Ordered Medications Medications where reviewed in EMR Antibiotics Include: zosyn vanco acyclvir Family History NC Social History No Tobacco. No ETOH. + MJ daily Physical Exam Vital Signs Vital Signs Date Time Temp Pulse Resp B/P (MAP) Pulse Ox O2 Delivery O2 Flow Rate FiO2 07/24/17 14:24 99.6 104 101/55 (70) 07/24/17 06:27 100.5 110 16 116/60 (78) 95 07/23/17 21:45 97.9 86 98/61 (73) 98 07/23/17 19:50 98.0 94 16 97/57 (70) 98 07/23/17 19:19 99.9 100 113/69 (84) 97 07/23/17 18:24 102.5 109 15 107/61 (76) 97 Physical Exam CONSTITUTIONAL/GENERAL: This is an adequately nourished patient, in no apparent distress. TUBES/LINES/DRAINS: SKIN: No jaundice, , or lesions.Conthluent erythmatous morbiliform rash most prominen nt on chest, abdomen, back sparce on upper and lower extremeties HEAD: Atraumatic. Normocephalic. EYES: Pupils equal and round and reactive. Extraocular motions intact. + coryza present ENT: Hearing grossly normal. Nose without bleeding or purulent drainage. Throat without visible erythema, exudates, masses, or lesions. No enanthema noted NECK: Trachea midline. Supple, nontender. CARDIOVASCULAR: Regular rate and rhythm without murmurs, gallops, or rubs. No JVD. Peripheral pulses symmetric. RESPIRATORY/CHEST: Symmetric, unlabored respirations. Clear to auscultation. Breath sounds equal bilaterally. No wheezes, rales, or rhonchi. GASTROINTESTINAL: Abdomen soft, non-tender, nondistended. No hepato-splenomegaly , or palpable masses. No guarding. Bowel sounds present. MUSCULOSKELETAL: Extremities without clubbing, cyanosis, or edema. No joint tenderness or effusion noted. No calf tenderness. No mottling or clubbing. LYMPHATICS: No palpable cervical or supraclavicular adenopathy. NEUROLOGICAL: Awake and alert. Motor and sensory grossly within normal limits. Follows commands. Clear speech . Moves all extremities. PSYCHIATRIC: No obvious anxiety/depression. no apparent hallucinations or other psychotic thought process. Laboratory Laboratory Tests Test 07/23/17 20:09 07/23/17 20:14 07/23/17 20:20 07/24/17 06:46 White Blood Count 10.8 Red Blood Count 4.86 Hemoglobin 14.8 Hematocrit 42.7 Mean Corpuscular Volume 87.7 Mean Corpuscular Hemoglobin 30.4 Mean Corpuscular Hemoglobin Concent 34.7 Red Cell Distribution Width 13.3 Platelet Count 172 Mean Platelet Volume 9.4 Neutrophils (%) (Auto) 34.4 Lymphocytes (%) (Auto) 50.8 Monocytes (%) (Auto) 6.5 Eosinophils (%) (Auto) 7.9 Basophils (%) (Auto) 0.4 Neutrophils # (Auto) 3.7 Lymphocytes # (Auto) 5.5 Monocytes # (Auto) 0.7 Eosinophils # (Auto) 0.9 Basophils # (Auto) 0.0 CBC Comment AUTO DIFF Differential Total Cells Counted 100 Neutrophils % (Manual) 32 Band Neutrophils % 4 Lymphocytes % 45 Monocytes % 10 Eosinophils % 8 Basophils % 1 Neutrophils # (Manual) 3.9 Differential Comment FINAL DIFF MANUAL Atypical Lymphocytes Platelet Estimate NORMAL Platelet Morphology Comment NORMAL Spherocytes 1+ Ovalocytes 1+ Prothrombin Time 12.4 Prothromb Time International Ratio 1.2 Activated Partial Thromboplast Time 25.9 Blood Urea Nitrogen 23 Creatinine 1.20 Random Glucose 105 Total Protein 7.0 Albumin 3.6 Calcium Level 9.2 Alkaline Phosphatase 264 Aspartate Amino Transf (AST/SGOT) 192 Alanine Aminotransferase (ALT/SGPT) 185 Total Bilirubin 0.5 Sodium Level 130 Potassium Level 4.7 Chloride Level 99 Carbon Dioxide Level 25.4 Anion Gap 6 Estimat Glomerular Filtration Rate 62 Lactic Acid Level 1.5 Urine Color YELLOW Urine Turbidity CLEAR Urine pH 6.0 Urine Specific [place] 1.012 Urine Protein TRACE Urine Glucose (UA) NEG Urine Ketones NEG Urine Occult Blood NEG Urine Nitrite NEG Urine Bilirubin NEG Urine Urobilinogen LESS THAN 2.0 Urine Leukocyte Esterase NEG Urine RBC LESS THAN 1 Urine WBC 1 Microscopic Urinalysis Comment CULT NOT INDICATED Rapid Plasma Reagin NON-REACTIVE Date/Time Source Procedure Growth Status 07/23/17 20:14 Blood Peripheral Aerobic Blood Culture - Preliminary NO GROWTH IN 1 DAY Resulted 07/23/17 20:14 Blood Peripheral Anaerobic Blood Culture - Preliminary NO GROWTH IN 1 DAY Resulted Result Diagram: 07/23/17200807/23/172008 Imaging Last Impressions Chest X-Ray 07/23/17 1850 Signed Impressions: Service Date/Time: Sunday, July 23, 2017 19:34 - CONCLUSION: Normal examination. Sherif Steel MD Head CT 06/20/17 0000 Signed Impressions: Service Date/Time: June 03:11 - CONCLUSION: 1. No acute hemorrhage or mass effect. 2. Areas of encephalomalacia in the left temporal and parietal lobes. 3. Mild to moderate atrophic change. Simone Wolf MD Renal Ultrasound 06/19/17 0000 Signed Impressions: Service Date/Time: Monday, June 19, 2017 16:47 - CONCLUSION: 1. Elevated velocities in the proximal and mid right renal artery. 2. Nonvisualization of the left mid renal artery with elevated velocity in the distal portion of the renal artery. 3. Echogenic kidneys characteristic of medical renal disease. There is no hydronephrosis. Simone Wolf MD Assessment and Plan Assessment and Plan Febrile illness with rash; braod differential including viral illnesse, drug eruptions less likley bacterial Doubt measles based on vaccination history, epidemiology and clinical pic (pt appears well and feels fine despite of hgh fever) clinically not c/w chicken pox HIV disease with CD4 > 400, off HAART dc zosyn, vanco f/u serologies chk parvo virus B19 serologies Discussed Condition With Jammie Urrutia MD Jul 24, 2017 16:31
[2017-07-24 18:37] VITALS: BP 117/65; PULSE 116; RESP 20; TEMP 102.8; O2SAT 96
[2017-07-24] MEDS: QUEtiapine FUMARATE 300 MG TAB PO SCH (21:08)
[2017-07-25 07:06] VITALS: BP 92/55; PULSE 109; RESP 21; TEMP 99.7; O2SAT 97
[2017-07-25] MEDS: hydrALAZINE HCL 25 MG TAB PO SCH ×3 (07:11→20:55)
--- NOTE | 2017-07-25 08:30 | HHI.PR ---
Subjective Remarks Patient currently states that he had not had any fevers or chills. Doing well. He denies any cough, shortness of breath, diarrhea, nor any abdominal pain. He is eating well. He denies any dysuria or urinary frequency. He states that his rash is not itchy. He is asymptomatic. He states that the rash started 2 days ago and is over his abdominal area chest lower back. He has not spread since Sunday. Objective Vitals Vital Signs Date Time Temp Pulse Resp B/P (MAP) Pulse Ox O2 Delivery O2 Flow Rate FiO2 07/25/17 07:06 99.7 109 21 92/55 (67) 97 07/24/17 18:37 102.8 116 20 117/65 (82) 96 07/24/17 14:24 99.6 104 101/55 (70) I/O 07/24/17 07/24/17 07/24/17 07/25/17 07/25/17 07/25/17 07:00 15:00 23:00 07:00 15:00 23:00 Intake Total 600 ml 480 ml 480 ml 240 ml Balance 600 ml 480 ml 480 ml 240 ml Intake Oral 600 ml 480 ml 480 ml 240 ml # Voids 2 1 Result Diagram: 07/23/17200807/23/172008 Other Results RPR nonreactive, rubella currently pending Imaging Last 48 hours Impressions Chest X-Ray 07/23/17 1850 Signed Impressions: Service Date/Time: Sunday, July 23, 2017 19:34 - CONCLUSION: Normal examination. Sherif Steel MD Objective Remarks GENERAL: This is a well-nourished, well-developed patient, in no apparent distress. CARDIOVASCULAR: Regular rate and rhythm RESPIRATORY: Clear to auscultation. Breath sounds equal bilaterally. No wheezes , rales, or rhonchi. GASTROINTESTINAL: Abdomen soft, non-tender, nondistended. Normal active bowel sounds MUSCULOSKELETAL: Extremities without clubbing, cyanosis, or edema. Skin: Diffuse maculopapular erythematous, red rash throughout chest abdomen and back, trunk. Nonblanching, nontender, no petechiae NEURO: Alert & Oriented x4 to person, place, time, situation. Moves all ext x4 Procedures NONE A/P Problem List: (1) Hypertension ICD Code: I10 - Essential (primary) hypertension Status: Chronic (2) HIV (human immunodeficiency virus infection) ICD Code: Z21 - Asymptomatic human immunodeficiency virus [HIV] infection status Status: Chronic Assessment and Plan 61-year-old white male currently in the psychiatric unit admitted for psychosis disorder with a history of HIV- continue current treatment per psychiatry. 1. Nonspecific rash likely due to virus, rule out PV B-19, currently asymptomatic. Dose of Zosyn and vancomycin given yesterday however, high likelihood this is spiral. Monitor lab results blood cultures. Appreciate infectious disease evaluation and recommendations. 2. Hypertension, chronic due to some transient hypotension will hold Procardia. Continue with lisinopril and adjust dosage. 3. DVT prophylaxis-No mechanical or pharmaceutical VTE prophalaxis administered due to patient's low risk assessment of VTE. Patient actively ambulating. Encouraged ambulation. Discharge Planning Per psychiatry Problem Qualifiers (1) Hypertension: Qualified Codes: I10 - Essential (primary) hypertension Katiana Rowland MD Jul 25, 2017 08:30
[2017-07-25] MEDS: METOPROLOL SUCCINATE 50 MG EXTENDED RELEASE TAB PO SCH (08:41)
[2017-07-25] MEDS: QUEtiapine FUMARATE 100 MG TAB PO SCH ×2 (08:41→12:35)
[2017-07-25] MEDS: ACYCLOVIR 800 MG TAB PO SCH (08:41)
[2017-07-25] MEDS ORDERED: LISINOPRIL 10 MG TAB PO SCH (09:45)
--- NOTE | 2017-07-25 10:45 | HHI.PYPN ---
Subjective Remarks Patient seen for follow-up, chart reviewed. Discussion staff reported the patient continues to have this generalized rash but denied any other physical complaints. Vital signs noted to decrease in temperature today. Patient found sitting in hospital bed, cooperative. Patient continued with generalized rash but denying any other physical complaints. Patient continues to be incontinent precautions. Patient reports feeling "excellent" denying feeling depressed but continues to have orthodox delusions along with auditory hallucinations from these orthodox figures. Patient denies any SI or HI. Review of Systems Except as stated in HPI: all other systems reviewed are Neg Mental Status Examination Appearance: Appropriate Consciousness: Alert Orientation: Person, Place (at least) Motor Activity: Normal gait, Other (patient does have a resting tremor and some subtle cogwheeling but no hypomimia.) Speech: Unremarkable Language: Adequate Fund of Knowledge: Adequate Attention and Concentration: Inadequate Memory: Unremarkable Mood: Appropriate, Other ("excellent") Affect: Appropriate Thought Process & Associations: Loose associations, Tangential (less so today) Thought Content: Bizarre thinking, Hallucinations, Delusional Hallucination Type: Auditory Delusion Type: Bizarre, Other (orthodox) Suicidal Ideation: No Suicidal Plan: No Suicidal Intention: No Homicidal Ideation: No Homicidal Plan: No Homicidal Intention: No Insight: Poor Judgment: Poor Results Labs Labs reviewed Test 07/24/17 19:36 Date/Time Source Procedure Growth Status 07/23/17 20:14 Blood Peripheral Aerobic Blood Culture - Preliminary NO GROWTH IN 1 DAY Resulted 07/23/17 20:14 Anaerobic Blood Culture - Preliminary Gram Positive Cocci Resulted Vitals/IOs Vital Signs Date Time Temp Pulse Resp B/P (MAP) Pulse Ox O2 Delivery O2 Flow Rate FiO2 07/25/17 07:06 99.7 109 21 92/55 (67) 97 Intake and Output 07/25/17 07/25/17 07/26/17 08:00 16:00 00:00 Intake Total 600 ml Balance 600 ml Assessment & Plan Problem List: (1) Psychotic disorder ICD Codes: F29 - Unspecified psychosis not due to a substance or known physiological condition Status: Acute Assessment & Plan Patient at this time continues to have orthodox delusions and preoccupations along with auditory hallucinations from his orthodox figures. Patient currently being followed by medical team for recent generalized rash. The patient is a consult appreciated. Patient continues to be on contact precautions. Continue recommendations as per primary medical team. Continue current treatment. Patient will be discharged to determine health and rehabilitation once medically cleared. Justification for Cont. Inpt. At risk for further decompensation if at lower level of care Discharge Planning To be discharged to a daytime health rehabilitation when medically cleared Problem Qualifiers (1) Psychotic disorder: Qualified Codes: F23 - Brief psychotic disorder Jhoan Tabares MD Jul 25, 2017 10:45
[2017-07-25 12:35] VITALS: BP 111/58; PULSE 100; RESP 18; TEMP 98.3; O2SAT 100
[2017-07-25] MEDS ORDERED: PHARMACY ORDERED LAB ONE (15:45)
--- NOTE | 2017-07-25 16:34 | HHI.PR ---
Addendum to Inpatient Note Additional Information Seen around 1600 full note to follow Jammie Palacios MD Jul 25, 2017 16:34
[2017-07-25 18:00] VITALS: BP 111/58; PULSE 121; RESP 20; TEMP 103; O2SAT 96
[2017-07-25] MEDS: QUEtiapine FUMARATE 300 MG TAB PO SCH (20:55)
[2017-07-25] MEDS: LORazepam 1 MG TAB PO PRN (20:55)
--- NOTE | 2017-07-25 23:45 | HHI.IDPN ---
Subjective Subjective Remarks delayed entry pt was seen earlier today feels well, despite of high fever up to 103 F denies pruritis blood clx with Staph epi 07/19 bottles Antibiotics acyclovir Allergies: Coded Allergies: Sulfa (Sulfonamide Antibiotics) (Unverified Allergy, Severe, Hives, ) Objective . Vital Signs Date Time Temp Pulse Resp B/P (MAP) Pulse Ox O2 Delivery O2 Flow Rate FiO2 07/25/17 18:00 103.0 121 20 111/58 (75) 96 07/25/17 12:35 98.3 100 18 111/58 (75) 100 07/25/17 07:06 99.7 109 21 92/55 (67) 97 07/25/17 07/25/17 07/26/17 15:00 23:00 07:00 Intake Total 720 ml 1200 ml 240 ml Balance 720 ml 1200 ml 240 ml Intake Oral 720 ml 1200 ml 240 ml # Voids 3 1 . Microbiology Date/Time Source Procedure Growth Status 07/23/17 20:14 Blood Peripheral Aerobic Blood Culture - Preliminary NO GROWTH IN 2 DAYS Resulted 07/23/17 20:14 Anaerobic Blood Culture - Preliminary Staphylococcus Epidermidis Resulted 07/23/17 20:09 Blood Peripheral Aerobic Blood Culture - Preliminary NO GROWTH IN 2 DAYS Resulted 07/23/17 20:09 Blood Peripheral Anaerobic Blood Culture - Preliminary NO GROWTH IN 2 DAYS Resulted Imaging Last Impressions Chest X-Ray 07/23/17 1850 Signed Impressions: Service Date/Time: Sunday, July 23, 2017 19:34 - CONCLUSION: Normal examination. Sherif Steel MD Head CT 06/20/17 0000 Signed Impressions: Service Date/Time: June 03:11 - CONCLUSION: 1. No acute hemorrhage or mass effect. 2. Areas of encephalomalacia in the left temporal and parietal lobes. 3. Mild to moderate atrophic change. Simone Wolf MD Renal Ultrasound 06/19/17 0000 Signed Impressions: Service Date/Time: Monday, June 19, 2017 16:47 - CONCLUSION: 1. Elevated velocities in the proximal and mid right renal artery. 2. Nonvisualization of the left mid renal artery with elevated velocity in the distal portion of the renal artery. 3. Echogenic kidneys characteristic of medical renal disease. There is no hydronephrosis. Simone Wolf MD Physical Exam CONSTITUTIONAL/GENERAL: This is an adequately nourished patient, in no apparent distress. Pt appears well TUBES/LINES/DRAINS: SKIN: No jaundice, , or lesions.Conthluent erythmatous morbiliform rash most prominen nt on chest, abdomen, back: looks less prominent and less red sparce on upper and lower extremeties Some new rash elements on the face today EYES: Pupils equal and round and reactive. Extraocular motions intact. + coryza present ENT: Hearing grossly normal. Nose without bleeding or purulent drainage. Throat without visible erythema, exudates, masses, or lesions. No enanthema noted CARDIOVASCULAR: Regular rate and rhythm without murmurs, gallops, or rubs. No JVD. Peripheral pulses symmetric. RESPIRATORY/CHEST: Symmetric, unlabored respirations. Clear to auscultation. Breath sounds equal bilaterally. No wheezes, rales, or rhonchi. GASTROINTESTINAL: Abdomen soft, non-tender, nondistended. No hepato-splenomegaly , or palpable masses. No guarding. Bowel sounds present. MUSCULOSKELETAL: Extremities without clubbing, cyanosis, or edema. No joint tenderness or effusion noted. No calf tenderness. No mottling or clubbing. NEUROLOGICAL: Awake and alert. Motor and sensory grossly within normal limits. Follows commands. Clear speech . Moves all extremities. PSYCHIATRIC: No obvious anxiety/depression. no apparent hallucinations or other psychotic thought process. Assessment & Plan Remarks Febrile illness with rash; braod differential including viral illnesse, drug eruptions less likley bacterial Doubt measles based on vaccination history, epidemiology and clinical pic (pt appears well and feels fine despite of hgh fever) clinically not c/w chicken pox HIV disease with CD4 > 400, off HAART Low grade Staph epi bactremia, favouring contaminantion f/u serologies chk parvo virus B19 serologies Jammie Palacios MD Jul 25, 2017 23:45
[2017-07-26 06:08] VITALS: BP 102/51; PULSE 117; RESP 21; TEMP 98.2; O2SAT 96
[2017-07-26] MEDS: hydrALAZINE HCL 25 MG TAB PO SCH ×3 (06:26→21:32)
--- NOTE | 2017-07-26 08:51 | HHI.PYPN ---
Subjective Remarks Patient seen for follow-up, chart review. Discussion nursing staff reported to have been no change with the patient continued to be calm and cooperative pleasant with staff. Patient was found lying in hospital bed, cooperative. Patient noted to have spread of generalized rash to the face now but denies any other physical complaints. Patient states that he is feeling "excellent" that has been no change refers to his latter-day delusions along with auditory hallucinations from his latter-day figures. Patient denies any SI, HI. Review of Systems Except as stated in HPI: all other systems reviewed are Neg Mental Status Examination Appearance: Appropriate, Other (noted with generalized rash) Consciousness: Alert Orientation: Person, Place (at least) Motor Activity: Normal gait, Other (patient does have a resting tremor and some subtle cogwheeling but no hypomimia.) Speech: Unremarkable Language: Adequate Fund of Knowledge: Adequate Attention and Concentration: Inadequate Memory: Unremarkable Mood: Appropriate, Other ("excellent") Affect: Appropriate Thought Process & Associations: Loose associations, Tangential (less so today) Thought Content: Bizarre thinking, Hallucinations, Delusional Hallucination Type: Auditory Delusion Type: Bizarre, Other (latter-day) Suicidal Ideation: No Suicidal Plan: No Suicidal Intention: No Homicidal Ideation: No Homicidal Plan: No Homicidal Intention: No Insight: Poor Judgment: Poor Results Labs Labs reviewed Test 07/25/17 10:09 Date/Time Source Procedure Growth Status 07/23/17 20:14 Blood Peripheral Aerobic Blood Culture - Preliminary NO GROWTH IN 2 DAYS Resulted 07/23/17 20:14 Anaerobic Blood Culture - Preliminary Staphylococcus Epidermidis Resulted Vitals/IOs Vital Signs Date Time Temp Pulse Resp B/P (MAP) Pulse Ox O2 Delivery O2 Flow Rate FiO2 07/26/17 06:08 98.2 117 21 102/51 (68) 96 Intake and Output 07/26/17 07/26/17 07/27/17 08:00 16:00 00:00 Intake Total 0 ml Balance 0 ml Assessment & Plan Problem List: (1) Psychotic disorder ICD Codes: F29 - Unspecified psychosis not due to a substance or known physiological condition Status: Acute Assessment & Plan Patient continues with latter-day delusions and preoccupations along with auditory hallucinations for the same. Vital signs stable. Patient continued with rash generalized and now noted to be on his face. Patient continues to be followed by medical and infectious disease consultation team. Continue recommendations as per primary medical team. Continue current treatment. Discharge planning in progress Justification for Cont. Inpt. At risk for further decompensation if at lower level of care Discharge Planning Patient to be discharged to [facility] and rehabilitation once medically stable Problem Qualifiers (1) Psychotic disorder: Qualified Codes: F23 - Brief psychotic disorder Jhoan Tabares MD Jul 26, 2017 08:51
--- NOTE | 2017-07-26 09:30 | HHI.PR ---
Subjective Remarks Patient states that he is doing great and has not had any new symptoms. His rash is still on his chest abdomen and upper thigh areas and back. It is not worse or changed. It is not itchy. He denies any chills or fever. He is tolerating his diet. He has not had any nausea or vomiting nor any diarrhea. He has not had any coughing or upper respiratory symptoms. Objective Vitals Vital Signs Date Time Temp Pulse Resp B/P (MAP) Pulse Ox O2 Delivery O2 Flow Rate FiO2 07/26/17 06:08 98.2 117 21 102/51 (68) 96 07/25/17 18:00 103.0 121 20 111/58 (75) 96 07/25/17 12:35 98.3 100 18 111/58 (75) 100 I/O 07/25/17 07/25/17 07/25/17 07/26/17 07/26/17 07/26/17 06:59 14:59 22:59 06:59 14:59 22:59 Intake Total 240 ml 720 ml 1200 ml 240 ml Balance 240 ml 720 ml 1200 ml 240 ml Intake Oral 240 ml 720 ml 1200 ml 240 ml # Voids 1 3 4 Result Diagram: 07/23/17200807/23/172008 Other Results Microbiology Date/Time Source Procedure Growth Status 07/23/17 20:14 Blood Peripheral Aerobic Blood Culture - Preliminary NO GROWTH IN 2 DAYS Resulted 07/23/17 20:14 Anaerobic Blood Culture - Preliminary Staphylococcus Epidermidis Resulted Objective Remarks GENERAL: This is a well-nourished, well-developed patient, in no apparent distress. CARDIOVASCULAR: Regular rate and rhythm RESPIRATORY: Clear to auscultation. Breath sounds equal bilaterally. No wheezes , rales, or rhonchi. GASTROINTESTINAL: Abdomen soft, non-tender, nondistended. Normal active bowel sounds MUSCULOSKELETAL: Extremities without clubbing, cyanosis, or edema. Skin: Diffuse maculopapular erythematous, red rash throughout chest abdomen and back, trunk, upper bilateral thigh area. Nonblanching, nontender, no petechiae NEURO: Alert & Oriented x4 to person, place, time, situation. Moves all ext x4 Procedures NONE A/P Problem List: (1) Hypertension ICD Code: I10 - Essential (primary) hypertension Status: Chronic (2) HIV (human immunodeficiency virus infection) ICD Code: Z21 - Asymptomatic human immunodeficiency virus [HIV] infection status Status: Chronic (3) Viral rash ICD Code: B09 - Unspecified viral infection characterized by skin and mucous membrane lesions Assessment and Plan 61-year-old white male currently in the psychiatric unit admitted for psychosis disorder with a history of HIV- continue current treatment per psychiatry. 1. Nonspecific rash likely due to virus, rule out PV B-19, currently asymptomatic. Dose of Zosyn and vancomycin given on 07/24 when patient first had fever however, high likelihood this is viral in etiology. Staph epidermidis in 1 bottle from blood culture likely contaminant. Appreciate infectious disease evaluation and recommendations. 2. Hypertension, chronic due to some transient hypotension will hold Procardia and adjust lisinopril dose to 5 mg with parameters 3. DVT prophylaxis-No mechanical or pharmaceutical VTE prophalaxis administered due to patient's low risk assessment of VTE. Patient actively ambulating. Encouraged ambulation. Discharge Planning Per psychiatry Problem Qualifiers (1) Hypertension: Qualified Codes: I10 - Essential (primary) hypertension Katiana Rowland MD Jul 26, 2017 09:30
[2017-07-26 10:42] VITALS: BP 129/70; PULSE 116
[2017-07-26] MEDS: QUEtiapine FUMARATE 100 MG TAB PO SCH ×2 (10:45→12:00)
[2017-07-26] MEDS: ACYCLOVIR 800 MG TAB PO SCH (10:45)
[2017-07-26] MEDS: METOPROLOL SUCCINATE 50 MG EXTENDED RELEASE TAB PO SCH (10:47)
[2017-07-26] MEDS: LISINOPRIL 5 MG TAB PO SCH (10:47)
--- NOTE | 2017-07-26 17:53 | RADRPT ---
EXAM DATE/TIME: 07/26/2017 16:09 [facility] COMPARISON: No previous studies available for comparison. INDICATIONS : Increased lab values. MEDICAL HISTORY : Hepatitis C. HIV. CVA. Cerebral infarct. HTN. Schizophrenia. Bipolar disorder. Substance use. Feet lesions. SURGICAL HISTORY : Right ankle surgery. ENCOUNTER: Initial ACUITY: 1 day PAIN SCORE: 0/10 LOCATION: Bilateral upper quadrant MEASUREMENTS: LIVER: 15.4 cm length COMMON DUCT: 5 mm RIGHT KIDNEY: 12.2 x 5.8 x 4.8 cm SPLEEN: 12.1 cm length FINDINGS: LIVER: Normal echotexture without focal lesion or ductal dilatation. COMMON DUCT: No intraluminal mass or stone visualized. GALLBLADDER: Contains no stones, demonstrates no wall thickening or pericholecystic fluid. PANCREAS: The visualized portions are within normal limits. RIGHT KIDNEY: No hydronephrosis, stone or mass. SPLEEN: No focal lesion. CONCLUSION: 1. Unremarkable abdominal ultrasound examination. Randall Patten MD on July 26, 2017 at 17:49 Board Certified Radiologist. This report was verified electronically.
[2017-07-26 18:00] VITALS: BP 109/56; PULSE 95; RESP 18; TEMP 98.1; O2SAT 95
[2017-07-26] MEDS: QUEtiapine FUMARATE 300 MG TAB PO SCH (21:31)
[2017-07-27 03:50] LABS: MEASLES AB IGG <25.00 AU/mL (<25.00)
[2017-07-27] MEDS: hydrALAZINE HCL 25 MG TAB PO SCH ×3 (05:16→22:00)
[2017-07-27 05:52] LABS: AUTOMATED NEUTROPHIL # 7.1 TH/MM3 (1.8-7.7); BASOPHIL # 0.2 TH/MM3 (0-0.2); EOSINOPHIL # 1.8 TH/MM3 (0-0.4); EOSINOPHIL % 11.3 % (0.0-4.0); HEMATOCRIT 38.4 % (39.0-51.0); HEMOGLOBIN 13.3 GM/DL (13.0-17.0); LYMPH % 37.8 % (9.0-44.0); LYMPHOCYTE # 6.1 TH/MM3 (1.0-4.8); MEAN CELL VOLUME 86.1 FL (80.0-100.0); MEAN CORPUSCULAR HEMOGLOBIN 29.8 PG (27.0-34.0); MEAN CORPUSCULAR HGB CONC 34.6 % (32.0-36.0); MEAN PLATELET VOLUME 9.8 FL (7.0-11.0); MONO % 6.2 % (0.0-8.0); NEUT % 43.7 % (16.0-70.0); PLATELET COUNT 182 TH/MM3 (150-450); RED BLOOD COUNT 4.45 MIL/MM3 (4.50-5.90); RED CELL DISTRIBUTION WIDTH 13.3 % (11.6-17.2); WHITE BLOOD COUNT 16.2 TH/MM3 (4.0-11.0)
[2017-07-27 06:00] VITALS: BP 105/56; PULSE 107; RESP 18; TEMP 100.2; O2SAT 96
[2017-07-27] MEDS: ACYCLOVIR 800 MG TAB PO SCH (09:00)
[2017-07-27] MEDS: LISINOPRIL 5 MG TAB PO SCH (09:00)
[2017-07-27] MEDS: QUEtiapine FUMARATE 100 MG TAB PO SCH ×2 (09:00→12:00)
[2017-07-27] MEDS: METOPROLOL SUCCINATE 50 MG EXTENDED RELEASE TAB PO SCH (09:00)
--- NOTE | 2017-07-27 09:06 | HHI.PYPN ---
Subjective Remarks Patient seen for follow-up, chart reviewed. Discussion she staff reported the patient had refused medications this morning was noted to be very frustrated and upset due to his current rash that he is undergoing. Patient slept well. Patient was found lying in hospital bed noted to be slightly irritable today but cooperative interview. Patient states that he is upset that he is not getting better noted to be frustrated with undergoing this current rash denies any other physical complaint. Patient stated that he did receive medications this morning and felt that it was the "white pills" that had been causing his current infection. It was expected patient that patient had been taking his medications for quite some time prior to this infection and he was encouraged to continue treatment. Patient states that Logan will cure him. Review of Systems Except as stated in HPI: all other systems reviewed are Neg Mental Status Examination Appearance: Appropriate, Other (noted with generalized rash) Consciousness: Alert Orientation: Person, Place (at least) Motor Activity: Normal gait, Other (patient does have a resting tremor and some subtle cogwheeling but no hypomimia.) Speech: Unremarkable Language: Adequate Fund of Knowledge: Adequate Attention and Concentration: Inadequate Memory: Unremarkable Mood: Irritable Affect: Irritable Thought Process & Associations: Loose associations, Tangential (less so today) Thought Content: Bizarre thinking, Hallucinations, Delusional Hallucination Type: Auditory Delusion Type: Bizarre, Other (caodaism) Suicidal Ideation: No Suicidal Plan: No Suicidal Intention: No Homicidal Ideation: No Homicidal Plan: No Homicidal Intention: No Insight: Poor Judgment: Poor Results Labs Labs reviewed Test 07/27/17 04:32 White Blood Count 16.2 TH/MM3 Red Blood Count 4.45 MIL/MM3 Hemoglobin 13.3 GM/DL Hematocrit 38.4 % Mean Corpuscular Volume 86.1 FL Mean Corpuscular Hemoglobin 29.8 PG Mean Corpuscular Hemoglobin Concent 34.6 % Red Cell Distribution Width 13.3 % Platelet Count 182 TH/MM3 Mean Platelet Volume 9.8 FL Neutrophils (%) (Auto) 43.7 % Lymphocytes (%) (Auto) 37.8 % Monocytes (%) (Auto) 6.2 % Eosinophils (%) (Auto) 11.3 % Basophils (%) (Auto) 1.0 % Neutrophils # (Auto) 7.1 TH/MM3 Lymphocytes # (Auto) 6.1 TH/MM3 Monocytes # (Auto) 1.0 TH/MM3 Eosinophils # (Auto) 1.8 TH/MM3 Basophils # (Auto) 0.2 TH/MM3 CBC Comment AUTO DIFF Date/Time Source Procedure Growth Status 07/23/17 20:14 Blood Peripheral Aerobic Blood Culture - Preliminary NO GROWTH IN 3 DAYS Resulted 07/23/17 20:14 Anaerobic Blood Culture - Preliminary Staphylococcus Epidermidis Resulted Vitals/IOs Vital Signs Date Time Temp Pulse Resp B/P (MAP) Pulse Ox O2 Delivery O2 Flow Rate FiO2 07/27/17 06:00 100.2 107 18 105/56 (72) 96 Intake and Output 07/27/17 07/27/17 07/28/17 08:00 16:00 00:00 Intake Total 0 ml Balance 0 ml Assessment & Plan Problem List: (1) Psychotic disorder ICD Codes: F29 - Unspecified psychosis not due to a substance or known physiological condition Status: Acute Assessment & Plan Patient at this time continues with caodaism delusions along with auditory hallucinations. Patient noted to be slightly irritable this morning, refusing medications at this time due to being upset about his current infection. We'll continue to encourage patient to continue current treatment. Continue recommendations as per primary medical team and infectious disease consult team. Serologies continues to be pending. Discharge planning in progress Justification for Cont. Inpt. At risk for further decompensation if at lower level of care Discharge Planning Patient to discharge in [facility] and rehabilitation once medically stable Problem Qualifiers (1) Psychotic disorder: Qualified Codes: F23 - Brief psychotic disorder Jhoan Tabares MD Jul 27, 2017 09:06
[2017-07-27 09:24] LABS: ATYPICAL LYMPHOCYTES 14 % (0-0); BANDS 6 % (0-6); BASOPHILS 1 % (0-2); LYMPHOCYTES 28 % (9-44); MONOCYTES 6 % (0-8); NEUTROPHIL # MANUAL DIFF 6.8 TH/MM3 (1.8-7.7); POLYS (SEG NEUTROPHILS) 36 % (16-70)
[2017-07-27 09:25] LABS: OVALOCYTES 1+ (NORMAL)
--- NOTE | 2017-07-27 09:56 | HHI.PR ---
Subjective Remarks No acute events overnight. MAXIMUM TEMPERATURE 100.2. Patient has no complaints aside from his rash at this time. He is refusing to take all medications because he believes that this is contributing to his rash. He denies any fever/chills. Denies shortness of breath or cough. States he would like to exercise. Objective Vitals Vital Signs Date Time Temp Pulse Resp B/P (MAP) Pulse Ox O2 Delivery O2 Flow Rate FiO2 07/27/17 06:00 100.2 107 18 105/56 (72) 96 07/26/17 18:00 98.1 95 18 109/56 (73) 95 07/26/17 10:42 116 129/70 (89) I/O 07/26/17 07/26/17 07/26/17 07/27/17 07/27/17 07/27/17 07:00 15:00 23:00 07:00 15:00 23:00 Intake Total 600 ml 840 ml 0 ml Balance 600 ml 840 ml 0 ml Intake Oral 600 ml 840 ml 0 ml # Voids 4 2 4 Result Diagram: 07/27/17 0432 07/23/172008 Objective Remarks GENERAL: This is a well-nourished, well-developed patient, in no apparent distress. CARDIOVASCULAR: Regular rate and rhythm RESPIRATORY: Clear to auscultation. Breath sounds equal bilaterally. No wheezes , rales, or rhonchi. GASTROINTESTINAL: Abdomen soft, non-tender, nondistended. Normal active bowel sounds MUSCULOSKELETAL: Extremities without clubbing, cyanosis, or edema. Skin: Diffuse maculopapular erythematous, red rash throughout chest abdomen and back, trunk, upper bilateral thigh area. Nonblanching, nontender, no petechiae NEURO: Alert & Oriented x4 to person, place, time, situation. Moves all ext x4 Procedures NONE A/P Problem List: (1) Hypertension ICD Code: I10 - Essential (primary) hypertension Status: Chronic (2) HIV (human immunodeficiency virus infection) ICD Code: Z21 - Asymptomatic human immunodeficiency virus [HIV] infection status Status: Chronic (3) Viral rash ICD Code: B09 - Unspecified viral infection characterized by skin and mucous membrane lesions Assessment and Plan 61-year-old white male currently in the psychiatric unit admitted for psychosis disorder with a history of HIV- continue current treatment per psychiatry. 1. Nonspecific rash likely due to virus, rule out PV B-19, currently asymptomatic. Dose of Zosyn and vancomycin given on 07/24 when patient first had fever however, high likelihood this is viral in etiology. Staph epidermidis in 1 bottle from blood culture likely contaminant. Appreciate infectious disease evaluation and recommendations. 2. Hypertension, chronic due to some transient hypotension will hold Procardia and adjust lisinopril dose to 5 mg with parameters. BP well controlled at this time. 3. DVT prophylaxis-No mechanical or pharmaceutical VTE prophalaxis administered due to patient's low risk assessment of VTE. Patient actively ambulating. Encouraged ambulation. Discharge Planning Pending clinical improvement Problem Qualifiers (1) Hypertension: Qualified Codes: I10 - Essential (primary) hypertension Sara Burnette MD Jul 27, 2017 09:56
[2017-07-27 16:46] VITALS: BP 133/80; PULSE 115; RESP 18; TEMP 100.6; O2SAT 96
--- NOTE | 2017-07-27 17:00 | HHI.PR ---
Addendum to Inpatient Note Additional Information Measles IgG negative IgM P + leukocytosis + atypical lymphs - chk EBV profile - dc acyclovir - awaiting IgM Jammie Palacios MD Jul 27, 2017 17:00
--- NOTE | 2017-07-27 20:31 | HHI.PR ---
Addendum to Inpatient Note Additional Information Measels serologies are negative OK to dc if clinically stable, rash going away and fever low grade will rechk lasbs in am Jammie Palacios MD Jul 27, 2017 20:31
[2017-07-27] MEDS: QUEtiapine FUMARATE 300 MG TAB PO SCH (21:00)
[2017-07-27 23:52] LABS: PARVOVIRUS B19 IGM 0.1
[2017-07-28] MEDS: hydrALAZINE HCL 25 MG TAB PO SCH ×3 (05:13→22:00)
[2017-07-28 06:38] VITALS: BP 124/71; PULSE 123; RESP 17; TEMP 100.8; O2SAT 98
[2017-07-28] MEDS: QUEtiapine FUMARATE 100 MG TAB PO SCH ×2 (08:19→10:25)
[2017-07-28] MEDS: METOPROLOL SUCCINATE 50 MG EXTENDED RELEASE TAB PO SCH (08:19)
[2017-07-28] MEDS: LISINOPRIL 5 MG TAB PO SCH (08:19)
--- NOTE | 2017-07-28 08:51 | HHI.PYPN ---
Subjective Remarks Patient seen for follow-up, chart review. Patient found lying in hospital bed noted to be irritable today stating that he continues to refuse medications as he believes was a medication that causes general rash. It was expected patient that patient had been stable on medication regimen for quite some time and likely that rash was caused by his current treatment. She also stated that he refuses to go to that told her health and rehabilitation and asked if he was able to return back to live with his brother. We'll discuss if that may not be possible patient states "I will just go to the street engages will take care of me". Patient encouraged to continue to comply with treatment at is is imperative for his physical and mental well-being. Patient continues with rastafari delusions and auditory hallucinations. Review of Systems Except as stated in HPI: all other systems reviewed are Neg Mental Status Examination Appearance: Appropriate, Other (noted with generalized rash) Consciousness: Alert Orientation: Person, Place (at least) Motor Activity: Normal gait, Other (patient does have a resting tremor and some subtle cogwheeling but no hypomimia.) Speech: Unremarkable Language: Adequate Fund of Knowledge: Adequate Attention and Concentration: Inadequate Memory: Unremarkable Mood: Irritable Affect: Irritable Thought Process & Associations: Loose associations, Tangential (less so today) Thought Content: Bizarre thinking, Hallucinations, Delusional Hallucination Type: Auditory Delusion Type: Bizarre, Other (rastafari) Suicidal Ideation: No Suicidal Plan: No Suicidal Intention: No Homicidal Ideation: No Homicidal Plan: No Homicidal Intention: No Insight: Poor Judgment: Poor Results Labs Labs reviewed Test 07/27/17 17:25 Date/Time Source Procedure Growth Status 07/23/17 20:14 Blood Peripheral Aerobic Blood Culture - Preliminary NO GROWTH IN 4 DAYS Resulted 07/23/17 20:14 Anaerobic Blood Culture - Final Staphylococcus Epidermidis Resulted Vitals/IOs Vital Signs Date Time Temp Pulse Resp B/P (MAP) Pulse Ox O2 Delivery O2 Flow Rate FiO2 07/28/17 06:38 100.8 123 17 124/71 (88) 98 Intake and Output 07/28/17 07/28/17 07/29/17 08:00 16:00 00:00 Intake Total 720 ml Balance 720 ml Assessment & Plan Problem List: (1) Psychotic disorder ICD Codes: F29 - Unspecified psychosis not due to a substance or known physiological condition Status: Acute Assessment & Plan Age at this time continues to be noted be irritable and upset due to recent generalized rash. Patient continues to refuse medications and now refusing to be discharged to a nursing facility. Patient was encouraged to continue treatment. Patient continuing rastafari delusions and auditory hallucinations. Continue to encourage patient to comply with medications. Continue recommendations as per primary medical team and infectious disease consultation. Appreciate recommendations. Discharge planning in progress Justification for Cont. Inpt. At risk for further decompensation if at lower level of care Discharge Planning To be discharged to [facility] rehabilitation when medically cleared Problem Qualifiers (1) Psychotic disorder: Qualified Codes: F23 - Brief psychotic disorder Jhoan Tabares MD Jul 28, 2017 08:50
[2017-07-28 10:10] VITALS: TEMP 100.9
[2017-07-28 10:43] LABS: AUTOMATED NEUTROPHIL # 6.9 TH/MM3 (1.8-7.7); BASOPHIL # 0.1 TH/MM3 (0-0.2); BASOPHIL % 0.7 % (0.0-2.0); EOSINOPHIL # 1.9 TH/MM3 (0-0.4); HEMATOCRIT 40.6 % (39.0-51.0); HEMOGLOBIN 13.7 GM/DL (13.0-17.0); LYMPH % 35.1 % (9.0-44.0); LYMPHOCYTE # 5.3 TH/MM3 (1.0-4.8); MEAN CELL VOLUME 86.1 FL (80.0-100.0); MEAN CORPUSCULAR HEMOGLOBIN 29.1 PG (27.0-34.0); MEAN CORPUSCULAR HGB CONC 33.8 % (32.0-36.0); MEAN PLATELET VOLUME 9.2 FL (7.0-11.0); MONOCYTE # 0.7 TH/MM3 (0-0.9); NEUT % 46.2 % (16.0-70.0); PLATELET COUNT 182 TH/MM3 (150-450); RED BLOOD COUNT 4.72 MIL/MM3 (4.50-5.90); RED CELL DISTRIBUTION WIDTH 13.2 % (11.6-17.2)
--- NOTE | 2017-07-28 10:50 | HHI.PR ---
Subjective Remarks No acute events overnight. Patient remains febrile with a MAXIMUM TEMPERATURE of 100.9 axillary this morning. Rash not improving. He denies pain or itchiness. He has no complaints at this time however states that he will not take any more medications. Objective Vitals Vital Signs Date Time Temp Pulse Resp B/P (MAP) Pulse Ox O2 Delivery O2 Flow Rate FiO2 07/28/17 10:10 100.9 07/28/17 06:38 100.8 123 17 124/71 (88) 98 07/27/17 16:46 100.6 115 18 133/80 (97) 96 I/O 07/27/17 07/27/17 07/27/17 07/28/17 07/28/17 07/28/17 07:00 15:00 23:00 07:00 15:00 23:00 Intake Total 0 ml 240 ml 360 ml 480 ml 240 ml Balance 0 ml 240 ml 360 ml 480 ml 240 ml Intake Oral 0 ml 240 ml 360 ml 480 ml 240 ml # Voids 4 Result Diagram: 07/27/17 0432 Objective Remarks GENERAL: This is a well-nourished, well-developed patient, in no apparent distress. CARDIOVASCULAR: Regular rate and rhythm RESPIRATORY: Clear to auscultation. Breath sounds equal bilaterally. No wheezes , rales, or rhonchi. GASTROINTESTINAL: Abdomen soft, non-tender, nondistended. Normal active bowel sounds MUSCULOSKELETAL: Extremities without clubbing, cyanosis, or edema. Skin: Diffuse maculopapular erythematous, red rash throughout chest abdomen and back, trunk, upper bilateral thigh area. Nonblanching, nontender, no petechiae NEURO: Alert & Oriented x4 to person, place, time, situation. Moves all ext x4 Procedures NONE A/P Problem List: (1) Hypertension ICD Code: I10 - Essential (primary) hypertension Status: Chronic (2) HIV (human immunodeficiency virus infection) ICD Code: Z21 - Asymptomatic human immunodeficiency virus [HIV] infection status Status: Chronic (3) Viral rash ICD Code: B09 - Unspecified viral infection characterized by skin and mucous membrane lesions Assessment and Plan 61-year-old white male currently in the psychiatric unit admitted for psychosis disorder with a history of HIV- continue current treatment per psychiatry. 1. Nonspecific rash likely due to virus, PV B-19 negative, measles IgM negative , currently asymptomatic. Dose of Zosyn and vancomycin given on 07/24 when patient first had fever however, high likelihood this is viral in etiology. Staph epidermidis in 1 bottle from blood culture likely contaminant. Per infectious disease, patient may be discharged once the rash is going away and the fever low grade. Rash today without improvement. Patient remains febrile with MAXIMUM TEMPERATURE of 100.9 axillary. Not ready for discharge at this time. 2. Hypertension, chronic due to some transient hypotension will hold Procardia and adjust lisinopril dose to 5 mg with parameters. BP well controlled at this time. 3. DVT prophylaxis-No mechanical or pharmaceutical VTE prophalaxis administered due to patient's low risk assessment of VTE. Patient actively ambulating. Encouraged ambulation. Discharge Planning Pending clinical improvement Problem Qualifiers (1) Hypertension: Qualified Codes: I10 - Essential (primary) hypertension Sara Burnette MD Jul 28, 2017 10:50
[2017-07-28 11:34] LABS: ALBUMIN 2.9 GM/DL (3.4-5.0); AST (GOT) 222 U/L (15-37); BICARBONATE 24.6 MEQ/L (21.0-32.0); BLOOD UREA NITROGEN 16 MG/DL (7-18); CALCIUM 8.1 MG/DL (8.5-10.1); CHLORIDE 97 MEQ/L (98-107); CREATININE 1.11 MG/DL (0.60-1.30); GLOMERULAR FILTRATION RATE 68 ML/MIN (>89); GLUCOSE,RANDOM 120 MG/DL (74-106); SODIUM (NA) 132 MEQ/L (136-145)
[2017-07-28 11:38] LABS: ALKALINE PHOSPHATASE 401 U/L (45-117); ALT (GPT) 340 U/L (12-78); TOTAL BILIRUBIN ADULT 0.5 MG/DL (0.2-1.0); TOTAL PROTEIN 5.7 GM/DL (6.4-8.2)
[2017-07-28 12:04] LABS: ATYPICAL LYMPHOCYTES 12 % (0-0); BANDS 8 % (0-6); LYMPHOCYTES 30 % (9-44); MONOCYTES 3 % (0-8); NEUTROPHIL # MANUAL DIFF 7.1 TH/MM3 (1.8-7.7); POLYS (SEG NEUTROPHILS) 39 % (16-70)
[2017-07-28 12:06] LABS: OVALOCYTES 1+ (NORMAL)
[2017-07-28] MEDS: QUEtiapine FUMARATE 300 MG TAB PO SCH (22:00)
[2017-07-29 06:00] VITALS: BP 103/74; PULSE 116; RESP 16; TEMP 99.2; O2SAT 99
[2017-07-29] MEDS: hydrALAZINE HCL 25 MG TAB PO SCH ×3 (06:00→22:00)
[2017-07-29] MEDS: QUEtiapine FUMARATE 100 MG TAB PO SCH ×2 (09:00→11:50)
[2017-07-29] MEDS: METOPROLOL SUCCINATE 50 MG EXTENDED RELEASE TAB PO SCH (09:00)
[2017-07-29] MEDS: LISINOPRIL 5 MG TAB PO SCH (09:00)
--- NOTE | 2017-07-29 10:02 | HHI.PYPN ---
Subjective Remarks Patient seen for follow-up, chart review. Discussion she staff reported the patient continues to refuse medications and has not been medically cleared yet. Patient was found lying in hospital bed noted to continue to be irritable and refusing to continue any treatment. Patient also continues with buddhism preoccupation but denies any auditory hallucinations today. Patient reports sleeping well, no problem eating and drinking and no difficulty with bowel movement. Review of Systems Except as stated in HPI: all other systems reviewed are Neg Mental Status Examination Appearance: Appropriate, Other (noted with generalized rash) Consciousness: Alert Orientation: Person, Place (at least) Motor Activity: Normal gait, Other (patient does have a resting tremor and some subtle cogwheeling but no hypomimia.) Speech: Unremarkable Language: Adequate Fund of Knowledge: Adequate Attention and Concentration: Inadequate Memory: Unremarkable Mood: Irritable Affect: Irritable Thought Process & Associations: Goal directed, Linear Thought Content: Bizarre thinking, Hallucinations, Delusional Hallucination Type: Auditory (denies today) Delusion Type: Bizarre, Paranoid (regarding medications), Other (buddhism) Suicidal Ideation: No Suicidal Plan: No Suicidal Intention: No Homicidal Ideation: No Homicidal Plan: No Homicidal Intention: No Insight: Poor Judgment: Poor Results Labs Date/Time Source Procedure Growth Status 07/23/17 20:14 Blood Peripheral Aerobic Blood Culture - Final NO GROWTH IN 5 DAYS Complete 07/23/17 20:14 Anaerobic Blood Culture - Final Staphylococcus Epidermidis Complete Vitals/IOs Vital Signs Date Time Temp Pulse Resp B/P (MAP) Pulse Ox O2 Delivery O2 Flow Rate FiO2 07/29/17 06:00 99.2 116 16 103/74 (84) 99 Intake and Output 07/29/17 07/29/17 07/30/17 08:00 16:00 00:00 Intake Total 600 ml Balance 600 ml Assessment & Plan Problem List: (1) Psychotic disorder ICD Codes: F29 - Unspecified psychosis not due to a substance or known physiological condition Status: Acute Assessment & Plan Patient continues to refuse medications, continue with buddhism delusions as well as noted irritability. Patient continues to be followed by infectious disease and medical team and as noted is not medically cleared for discharge yet. Continue to encourage patient to comply with treatment. Discharge planning in progress Justification for Cont. Inpt. At risk for further decompensation if at lower level of care Discharge Planning To be discharged to the telehealth rehabilitation when medically cleared Problem Qualifiers (1) Psychotic disorder: Qualified Codes: F23 - Brief psychotic disorder Jhoan Tabares MD Jul 29, 2017 10:02
--- NOTE | 2017-07-29 13:55 | HHI.PR ---
Subjective Remarks No acute events overnight. Temperature this morning 99.2 oral. Patient with no complaints at this time. States: "Logan is taking care of my a rash." Denies any pain. Objective Vitals Vital Signs Date Time Temp Pulse Resp B/P (MAP) Pulse Ox O2 Delivery O2 Flow Rate FiO2 07/29/17 06:00 99.2 116 16 103/74 (84) 99 I/O 07/28/17 07/28/17 07/28/17 07/29/17 07/29/17 07/29/17 07:00 15:00 23:00 07:00 15:00 23:00 Intake Total 480 ml 360 ml 360 ml 240 ml 600 ml Balance 480 ml 360 ml 360 ml 240 ml 600 ml Intake Oral 480 ml 360 ml 360 ml 240 ml 600 ml # Voids 1 2 Result Diagram: 07/28/1794007/28/17940 Objective Remarks GENERAL: This is a well-nourished, well-developed patient, in no apparent distress. CARDIOVASCULAR: Regular rate and rhythm RESPIRATORY: Clear to auscultation. Breath sounds equal bilaterally. No wheezes , rales, or rhonchi. GASTROINTESTINAL: Abdomen soft, non-tender, nondistended. Normal active bowel sounds MUSCULOSKELETAL: Extremities without clubbing, cyanosis, or edema. Skin: Diffuse maculopapular erythematous, red rash throughout chest abdomen and back, trunk, upper bilateral thigh area. Nonblanching, nontender, no petechiae. Rash now raised on the bilateral lower extremities and is more purple in appearance. NEURO: Alert & Oriented x4 to person, place, time, situation. Moves all ext x4 Procedures NONE A/P Problem List: (1) Hypertension ICD Code: I10 - Essential (primary) hypertension Status: Chronic (2) HIV (human immunodeficiency virus infection) ICD Code: Z21 - Asymptomatic human immunodeficiency virus [HIV] infection status Status: Chronic (3) Viral rash ICD Code: B09 - Unspecified viral infection characterized by skin and mucous membrane lesions Assessment and Plan 61-year-old white male currently in the psychiatric unit admitted for psychosis disorder with a history of HIV- continue current treatment per psychiatry. 1. Nonspecific rash likely due to virus, PV B-19 negative, measles IgM negative , currently asymptomatic. Dose of Zosyn and vancomycin given on 07/24 when patient first had fever however, high likelihood this is viral in etiology. Staph epidermidis in 1 bottle from blood culture likely contaminant. Per infectious disease, patient may be discharged once the rash is going away and the fever low grade. Rash is clinically worsening, now with a purple hue and raised. Not ready for discharge at this time. 2. Hypertension, chronic due to some transient hypotension will hold Procardia and adjust lisinopril dose to 5 mg with parameters. BP well controlled at this time. 3. DVT prophylaxis-No mechanical or pharmaceutical VTE prophalaxis administered due to patient's low risk assessment of VTE. Patient actively ambulating. Encouraged ambulation. Discharge Planning Pending clinical improvement Problem Qualifiers (1) Hypertension: Qualified Codes: I10 - Essential (primary) hypertension Sara Burnette MD Jul 29, 2017 13:55
[2017-07-29 18:52] VITALS: BP 138/73; PULSE 105; RESP 17; TEMP 98; O2SAT 98
[2017-07-29] MEDS: QUEtiapine FUMARATE 300 MG TAB PO SCH (21:00)
[2017-07-30 06:00] VITALS: BP 121/73; PULSE 101; RESP 18; TEMP 99.2; O2SAT 98
[2017-07-30] MEDS: hydrALAZINE HCL 25 MG TAB PO SCH ×3 (06:00→21:26)
[2017-07-30] MEDS: METOPROLOL SUCCINATE 50 MG EXTENDED RELEASE TAB PO SCH (08:43)
[2017-07-30] MEDS: LISINOPRIL 5 MG TAB PO SCH (08:43)
[2017-07-30] MEDS: QUEtiapine FUMARATE 100 MG TAB PO SCH ×2 (08:43→12:00)
--- NOTE | 2017-07-30 09:04 | HHI.PYPN ---
Subjective Remarks She is seen for follow-up, chart review. This discussion she staff reported that patient had been visited by his brother yesterday. Patient was found sitting on hospital bed eating his breakfast 30 to, cooperative mostly during interview and slightly irritable when speaking about medications. She states that he had been visited by his brother and stated that Logan had made his brother come visit him. Patient reports no physical complaints but continues to be upset that he has a generalized rash. Patient continued with zoroastrian preoccupation and delusions as well as auditory hallucinations from [place] , his "roll cleaner and fireball". Patient continues to refuse medications stated that he was a medications that caused the abrupt rash. Patient was provided with some psychoeducation about importance to maintain compliant with treatment but he continues to refuse became somewhat irritable. She continued with very poor insight and judgment. Patient states that he would be discharged to his brother for today's that he would go out "onto the road" with no concrete specific plan of where he will live volume support himself. The patient stated Logan would "figure it out". Review of Systems Except as stated in HPI: all other systems reviewed are Neg Mental Status Examination Appearance: Appropriate, Other (noted with generalized rash) Consciousness: Alert Orientation: Person, Place (at least) Motor Activity: Normal gait, Other (patient does have a resting tremor and some subtle cogwheeling but no hypomimia.) Speech: Unremarkable Language: Adequate Fund of Knowledge: Adequate Attention and Concentration: Inadequate Memory: Unremarkable Mood: Irritable Affect: Irritable Thought Process & Associations: Goal directed, Linear Thought Content: Bizarre thinking, Hallucinations, Delusional Hallucination Type: Auditory (denies today) Delusion Type: Bizarre, Paranoid (regarding medications), Other (zoroastrian) Suicidal Ideation: No Suicidal Plan: No Suicidal Intention: No Homicidal Ideation: No Homicidal Plan: No Homicidal Intention: No Insight: Poor Judgment: Poor Results Labs Labs reviewed Date/Time Source Procedure Growth Status 07/23/17 20:14 Blood Peripheral Aerobic Blood Culture - Final NO GROWTH IN 5 DAYS Complete 07/23/17 20:14 Anaerobic Blood Culture - Final Staphylococcus Epidermidis Complete Vitals/IOs Vital Signs Date Time Temp Pulse Resp B/P (MAP) Pulse Ox O2 Delivery O2 Flow Rate FiO2 07/29/17 18:52 98.0 105 17 138/73 (94) 98 Intake and Output 07/30/17 07/30/17 07/31/17 08:00 16:00 00:00 Intake Total 240 ml 480 ml Balance 240 ml 480 ml Assessment & Plan Problem List: (1) Psychotic disorder ICD Codes: F29 - Unspecified psychosis not due to a substance or known physiological condition Status: Acute Assessment & Plan At this time continues to be have zoroastrian delusions or preoccupations along with auditory hallucinations from same. Patient continues to refuse treatment at this time continues to have poor insight and judgment. Patient continues to be followed by infectious disease consult and at this time is not medically cleared. Patient to continue recommendations as per primary medical team. Discharge planning in progress Justification for Cont. Inpt. At risk for further decompensation if at lower level of care Discharge Planning 2 discharge and return health and rehabilitation when medically cleared Problem Qualifiers (1) Psychotic disorder: Qualified Codes: F23 - Brief psychotic disorder Jhoan Tabares MD Jul 30, 2017 09:04
--- NOTE | 2017-07-30 10:33 | HHI.PR ---
Subjective Remarks Patient seen and examined Afebrile 24 hours Still with diffuse none-pruritic rash Objective Vitals Vital Signs Date Time Temp Pulse Resp B/P (MAP) Pulse Ox O2 Delivery O2 Flow Rate FiO2 07/29/17 18:52 98.0 105 17 138/73 (94) 98 I/O 07/29/17 07/29/17 07/29/17 07/30/17 07/30/17 07/30/17 07:00 15:00 23:00 07:00 15:00 23:00 Intake Total 240 ml 600 ml 1320 ml 240 ml 480 ml Balance 240 ml 600 ml 1320 ml 240 ml 480 ml Intake Oral 240 ml 600 ml 1320 ml 240 ml 480 ml # Voids 2 2 2 Result Diagram: 07/28/17 0941 07/28/17 0941 Imaging Last Impressions Liver Ultrasound 07/26/17 0000 Signed Impressions: Service Date/Time: July 16:09 - CONCLUSION: 1. Unremarkable abdominal ultrasound examination. Randall Patten MD Chest X-Ray 07/23/17 1850 Signed Impressions: Service Date/Time: Sunday, July 23, 2017 19:34 - CONCLUSION: Normal examination. Sherif Steel MD Head CT 06/20/17 0000 Signed Impressions: Service Date/Time: June 03:11 - CONCLUSION: 1. No acute hemorrhage or mass effect. 2. Areas of encephalomalacia in the left temporal and parietal lobes. 3. Mild to moderate atrophic change. Simone Wolf MD Renal Ultrasound 06/19/17 0000 Signed Impressions: Service Date/Time: Monday, June 19, 2017 16:47 - CONCLUSION: 1. Elevated velocities in the proximal and mid right renal artery. 2. Nonvisualization of the left mid renal artery with elevated velocity in the distal portion of the renal artery. 3. Echogenic kidneys characteristic of medical renal disease. There is no hydronephrosis. Simone Wolf MD Objective Remarks GENERAL: NAD SKIN: Diffuse non-pruritic rash covering bilateral lower extremities, trunk, upper extremities HEAD: Normocephalic. EYES: No scleral icterus. No injection or drainage. NECK: Supple, trachea midline. No JVD or lymphadenopathy. CARDIOVASCULAR: Regular rate and rhythm without murmurs, gallops, or rubs. RESPIRATORY: Breath sounds equal bilaterally. No accessory muscle use. GASTROINTESTINAL: Abdomen soft, non-tender, nondistended. MUSCULOSKELETAL: No cyanosis, or edema. BACK: Nontender without obvious deformity. No CVA tenderness. Procedures NONE A/P Problem List: (1) Hypertension ICD Code: I10 - Essential (primary) hypertension Status: Chronic (2) HIV (human immunodeficiency virus infection) ICD Code: Z21 - Asymptomatic human immunodeficiency virus [HIV] infection status Status: Chronic (3) Viral rash ICD Code: B09 - Unspecified viral infection characterized by skin and mucous membrane lesions Assessment and Plan 61 year-old man with Febrile illness Currently afebrile 24 hours Diffuse non-pruritic rash in a patient with history of HIV PV B-19 negative, measles IgM negative, currently asymptomatic. Appreciate input from infectious disease specialist Hypertension, chronic BP soft, currently holding Norvasc and lisinopril HIV Currently off HAART DVT prophylaxis-No mechanical or pharmaceutical VTE prophalaxis administered due to patient's low risk assessment of VTE. Patient actively ambulating. Encouraged ambulation. Problem Qualifiers (1) Hypertension: Qualified Codes: I10 - Essential (primary) hypertension Jhoan Baer MD Jul 30, 2017 10:33
[2017-07-30 17:58] VITALS: BP 134/77; PULSE 100; RESP 20; TEMP 101.2; O2SAT 96
[2017-07-30] MEDS: QUEtiapine FUMARATE 300 MG TAB PO SCH (21:00)
[2017-07-31 05:11] LABS: EBV VCA IgM Negative (Negative)
[2017-07-31 05:36] VITALS: BP 128/66; PULSE 106; RESP 16; TEMP 98.7; O2SAT 98
[2017-07-31] MEDS: hydrALAZINE HCL 25 MG TAB PO SCH ×3 (06:00→21:57)
--- NOTE | 2017-07-31 08:10 | HHI.PYPN ---
Subjective Remarks Patient seen for follow-up, chart reviewed. Discussion she staff reported the patient continues to refuse medications but had started taking his home HIV medications which his brother had brought in. Patient is found lying in hospital bed, cooperative. Patient states that he was feeling "okay" denies any physical complaints. Continues to refuse all other medications aside from his HIV medications and noted to be irritable when discussing compliance with this treatment. Patient states that he will not be taking any medications for his HIV meds. Patient continues with sabianism delusions and auditory hallucinations. When asked where patient would go when he was a hospital patient states "to [facility]" when asked about where he would stay patient states "I don't know Logan will help". Review of Systems Except as stated in HPI: all other systems reviewed are Neg Mental Status Examination Appearance: Appropriate, Other (noted with generalized rash) Consciousness: Alert Orientation: Person, Place (at least) Motor Activity: Normal gait, Other Speech: Unremarkable Language: Adequate Fund of Knowledge: Adequate Attention and Concentration: Inadequate Memory: Unremarkable Mood: Irritable Affect: Irritable Thought Process & Associations: Linear Thought Content: Bizarre thinking, Hallucinations, Delusional Hallucination Type: Auditory (denies today) Delusion Type: Bizarre, Paranoid (regarding medications), Other (sabianism) Suicidal Ideation: No Suicidal Plan: No Suicidal Intention: No Homicidal Ideation: No Homicidal Plan: No Homicidal Intention: No Insight: Poor Judgment: Poor Results Labs Date/Time Source Procedure Growth Status 07/23/17 20:14 Blood Peripheral Aerobic Blood Culture - Final NO GROWTH IN 5 DAYS Complete 07/23/17 20:14 Anaerobic Blood Culture - Final Staphylococcus Epidermidis Complete Vitals/IOs Vital Signs Date Time Temp Pulse Resp B/P (MAP) Pulse Ox O2 Delivery O2 Flow Rate FiO2 07/31/17 05:36 98.7 106 16 128/66 (86) 98 Intake and Output 07/31/17 07/31/17 08/01/17 08:00 16:00 00:00 Intake Total 240 ml Balance 240 ml Assessment & Plan Problem List: (1) Psychotic disorder ICD Codes: F29 - Unspecified psychosis not due to a substance or known physiological condition Status: Acute Assessment & Plan At this time continues with sabianism delusions and preoccupation along with auditory hallucinations. Patient continues to be incontinent precautions as not been cleared by medical team. Patient refusing all medications aside from his HIV medications. Patient encouraged to continue treatment. Once medically cleared patient to be transferred to determine health and rehabilitation. Discharge planning in progress Justification for Cont. Inpt. At risk for further decompensation if at lower level of care Discharge Planning [facility] Problem Qualifiers (1) Psychotic disorder: Qualified Codes: F23 - Brief psychotic disorder Jhoan Tabares MD Jul 31, 2017 08:10
[2017-07-31] MEDS: QUEtiapine FUMARATE 100 MG TAB PO SCH ×2 (09:00→12:00)
[2017-07-31] MEDS: METOPROLOL SUCCINATE 50 MG EXTENDED RELEASE TAB PO SCH (09:00)
--- NOTE | 2017-07-31 09:33 | HHI.PR ---
Subjective Remarks Patient seen and examined, No acute event overnight Tmax 101.2 at 5 PM yesterday Objective Vitals Vital Signs Date Time Temp Pulse Resp B/P (MAP) Pulse Ox O2 Delivery O2 Flow Rate FiO2 07/31/17 05:36 98.7 106 16 128/66 (86) 98 07/30/17 17:58 101.2 100 20 134/77 (96) 96 I/O 07/30/17 07/30/17 07/30/17 07/31/17 07/31/17 07/31/17 07:00 15:00 23:00 07:00 15:00 23:00 Intake Total 240 ml 2160 ml 1200 ml 240 ml Balance 240 ml 2160 ml 1200 ml 240 ml Intake Oral 240 ml 2160 ml 1200 ml 240 ml # Voids 2 4 2 Result Diagram: 07/28/1794007/28/17940 Objective Remarks GENERAL: NAD SKIN: Diffuse non-pruritic rash covering bilateral lower extremities, trunk, upper extremities HEAD: Normocephalic. EYES: No scleral icterus. No injection or drainage. NECK: Supple, trachea midline. No JVD or lymphadenopathy. CARDIOVASCULAR: Regular rate and rhythm without murmurs, gallops, or rubs. RESPIRATORY: Breath sounds equal bilaterally. No accessory muscle use. GASTROINTESTINAL: Abdomen soft, non-tender, nondistended. MUSCULOSKELETAL: No cyanosis, or edema. BACK: Nontender without obvious deformity. No CVA tenderness. Procedures NONE A/P Problem List: (1) Hypertension ICD Code: I10 - Essential (primary) hypertension Status: Chronic (2) HIV (human immunodeficiency virus infection) ICD Code: Z21 - Asymptomatic human immunodeficiency virus [HIV] infection status Status: Chronic (3) Viral rash ICD Code: B09 - Unspecified viral infection characterized by skin and mucous membrane lesions Assessment and Plan 61 year-old man with Febrile illness management per ID Diffuse non-pruritic rash in a patient with history of HIV PV B-19 negative, measles IgM negative, currently asymptomatic. Appreciate input from infectious disease specialist Hypertension, chronic BP soft, currently holding Norvasc and lisinopril HIV Currently off HAART DVT prophylaxis-No mechanical or pharmaceutical VTE prophylaxis administered due to patient's low risk assessment of VTE. Patient actively ambulating. Encouraged ambulation. Patient is medically clear for discharge Problem Qualifiers (1) Hypertension: Qualified Codes: I10 - Essential (primary) hypertension Jhoan Baer MD Jul 31, 2017 09:33
[2017-07-31] MEDS: LISINOPRIL 5 MG TAB PO SCH (10:51)
[2017-07-31 18:42] VITALS: BP 121/78; PULSE 105; RESP 16; TEMP 99; O2SAT 96
[2017-07-31] MEDS: QUEtiapine FUMARATE 300 MG TAB PO SCH (21:00)
[2017-08-01 05:09] VITALS: BP 119/70; PULSE 16; RESP 16; TEMP 98.5
[2017-08-01] MEDS: hydrALAZINE HCL 25 MG TAB PO SCH ×3 (06:00→22:00)
[2017-08-01] MEDS: LISINOPRIL 5 MG TAB PO SCH (09:00)
[2017-08-01] MEDS: QUEtiapine FUMARATE 100 MG TAB PO SCH ×2 (09:00→11:54)
[2017-08-01] MEDS: METOPROLOL SUCCINATE 50 MG EXTENDED RELEASE TAB PO SCH (09:00)
--- NOTE | 2017-08-01 09:34 | HHI.PYPN ---
Subjective Remarks Patient seen for follow-up, chart reviewed. Discussion she staff reported patient continues to refuse medications, has not been medically cleared. Patient was found lying in hospital bed noted to be irritable today stating that he is refusing to take his medications and also refusing placement. Patient states he wants to go out into [place] [facility] [place]" . Patient states he does not have any specific plan stating that Logan will provide for him. He reports feeling glad that the rash is resolving, denies any other physical complaints at this time. Patient continues with poor insight and judgment. Review of Systems Except as stated in HPI: all other systems reviewed are Neg Mental Status Examination Appearance: Appropriate, Other (noted with generalized rash) Consciousness: Alert Orientation: Person, Place (at least) Motor Activity: Normal gait, Other Speech: Unremarkable Language: Adequate Fund of Knowledge: Adequate Attention and Concentration: Inadequate Memory: Unremarkable Mood: Irritable Affect: Irritable Thought Process & Associations: Linear Thought Content: Bizarre thinking, Hallucinations, Delusional Hallucination Type: Auditory (denies today) Delusion Type: Bizarre, Paranoid (regarding medications), Other (religion) Suicidal Ideation: No Suicidal Plan: No Suicidal Intention: No Homicidal Ideation: No Homicidal Plan: No Homicidal Intention: No Insight: Poor Judgment: Poor Results Labs Date/Time Source Procedure Growth Status 07/23/17 20:14 Blood Peripheral Aerobic Blood Culture - Final NO GROWTH IN 5 DAYS Complete 07/23/17 20:14 Anaerobic Blood Culture - Final Staphylococcus Epidermidis Complete Vitals/IOs Vital Signs Date Time Temp Pulse Resp B/P (MAP) Pulse Ox O2 Delivery O2 Flow Rate FiO2 08/01/17 05:09 98.5 16 16 119/70 (86) 07/31/17 18:42 96 Intake and Output 08/01/17 08/01/17 08/02/17 08:00 16:00 00:00 Intake Total 240 ml Balance 240 ml Assessment & Plan Problem List: (1) Psychotic disorder ICD Codes: F29 - Unspecified psychosis not due to a substance or known physiological condition Status: Acute Assessment & Plan Patient at this time continues to be irritable about medications that he is relating his recent rash to having been on treatment. Despite psychoeducation on this patient continues with poor insight and judgment. Patient continues religion delusions stating that Logan will provide him with everything when he is a hospital and refusing wanting to be placed in a facility. Due to patient' s current psychosis patient continues to have no capacity for medical decisions and continues to require placement as patient is unable to care for self due to symptomatology. Continue current treatment. Continue to encourage patient compliant with medications. Discharge planning in progress Justification for Cont. Inpt. At risk for further decompensation if at lower level of care Discharge Planning To be determined. Problem Qualifiers (1) Psychotic disorder: Qualified Codes: F23 - Brief psychotic disorder Jhoan Tabares MD Aug 01, 2017 09:34
--- NOTE | 2017-08-01 09:35 | HHI.PR ---
Subjective Remarks Patient seen and examined States he does not want to take any medicines No other issues and stable Currently afebrile and rash improving Objective Vitals Vital Signs Date Time Temp Pulse Resp B/P (MAP) Pulse Ox O2 Delivery O2 Flow Rate FiO2 08/01/17 05:09 98.5 16 16 119/70 (86) 07/31/17 18:42 99.0 105 16 121/78 (92) 96 I/O 07/31/17 07/31/17 07/31/17 08/01/17 08/01/17 08/01/17 07:00 15:00 23:00 07:00 15:00 23:00 Intake Total 240 ml 1680 ml 600 ml 840 ml Balance 240 ml 1680 ml 600 ml 840 ml Intake Oral 240 ml 1680 ml 600 ml 840 ml # Voids 2 4 Result Diagram: 07/28/1794007/28/17940 Objective Remarks GENERAL: NAD SKIN: Diffuse non-pruritic rash covering bilateral lower extremities, trunk, upper extremities HEAD: Normocephalic. EYES: No scleral icterus. No injection or drainage. NECK: Supple, trachea midline. No JVD or lymphadenopathy. CARDIOVASCULAR: Regular rate and rhythm without murmurs, gallops, or rubs. RESPIRATORY: Breath sounds equal bilaterally. No accessory muscle use. GASTROINTESTINAL: Abdomen soft, non-tender, nondistended. MUSCULOSKELETAL: No cyanosis, or edema. BACK: Nontender without obvious deformity. No CVA tenderness. Procedures NONE A/P Problem List: (1) Hypertension ICD Code: I10 - Essential (primary) hypertension Status: Chronic (2) HIV (human immunodeficiency virus infection) ICD Code: Z21 - Asymptomatic human immunodeficiency virus [HIV] infection status Status: Chronic (3) Viral rash ICD Code: B09 - Unspecified viral infection characterized by skin and mucous membrane lesions Assessment and Plan 61 year-old man with Febrile illness Currently afebrile Diffuse non-pruritic rash in a patient with history of HIV PV B-19 negative, measles IgM negative, currently asymptomatic. Appreciate input from infectious disease specialist Hypertension, chronic BP soft, currently holding Norvasc and lisinopril HIV Currently off HAART DVT prophylaxis-No mechanical or pharmaceutical VTE prophylaxis administered due to patient's low risk assessment of VTE. Patient actively ambulating. Encouraged ambulation. Patient is medically clear for discharge Problem Qualifiers (1) Hypertension: Qualified Codes: I10 - Essential (primary) hypertension Jhoan Baer MD Aug 01, 2017 09:35
[2017-08-01 18:21] VITALS: BP 115/73; PULSE 106; RESP 18; TEMP 98.2; O2SAT 98
[2017-08-01] MEDS: QUEtiapine FUMARATE 300 MG TAB PO SCH (20:22)
[2017-08-02] MEDS: hydrALAZINE HCL 25 MG TAB PO SCH ×3 (06:00→21:26)
[2017-08-02 06:28] VITALS: BP 138/82; PULSE 103; RESP 18; TEMP 98.7; O2SAT 98
[2017-08-02] MEDS: METOPROLOL SUCCINATE 50 MG EXTENDED RELEASE TAB PO SCH (08:42)
[2017-08-02] MEDS: LISINOPRIL 5 MG TAB PO SCH (08:42)
[2017-08-02] MEDS: QUEtiapine FUMARATE 100 MG TAB PO SCH ×2 (08:42→10:11)
--- NOTE | 2017-08-02 10:40 | HHI.PR ---
Subjective Remarks Follow-up for rash Patient had no concerns. He stated that his rash is improving. He stated that he is not worried about his rash and that Logan will help him. Last fever on 07/30. He has been afebrile since then. Objective Vitals Vital Signs Date Time Temp Pulse Resp B/P (MAP) Pulse Ox O2 Delivery O2 Flow Rate FiO2 08/02/17 06:28 98.7 103 18 138/82 (100) 98 08/01/17 18:21 98.2 106 18 115/73 (87) 98 I/O 08/01/17 08/01/17 08/01/17 08/02/17 08/02/17 08/02/17 07:00 15:00 23:00 07:00 15:00 23:00 Intake Total 840 ml 1560 ml 720 ml Balance 840 ml 1560 ml 720 ml Intake Oral 840 ml 1560 ml 720 ml # Voids 4 2 5 Objective Remarks SKIN: Diffuse non-pruritic macular erythematous with desqaumatous rash covering bilateral lower extremities, trunk, upper extremities HEAD: Normocephalic. EYES: No scleral icterus. No injection or drainage. NECK: Supple, trachea midline. No JVD or lymphadenopathy. CARDIOVASCULAR: Regular rate and rhythm without murmurs, gallops, or rubs. RESPIRATORY: Breath sounds equal bilaterally. No accessory muscle use. GASTROINTESTINAL: Abdomen soft, non-tender, nondistended. MUSCULOSKELETAL: No cyanosis, or edema. BACK: Nontender without obvious deformity. No CVA tenderness. Procedures NONE Medications and IVs Current Medications Atenolol (Tenormin) 50 mg ONCE ONCE PO Last administered on 06/11/17 18:16; Start 06/11/17 at 18:15; Stop 06/11/17 at 18:16; Status DC Lisinopril (Prinivil) 2.5 mg ONCE ONCE PO Last administered on 06/11/17 18: 16; Start 06/11/17 at 18:15; Stop 06/11/17 at 18:16; Status DC Clonidine (Catapres) 0.1 mg ONCE ONCE PO Last administered on 06/11/17 19:00 ; Start 06/11/17 at 19:00; Stop 06/11/17 at 19:03; Status DC Amlodipine Besylate (Norvasc) 10 mg ONCE ONCE PO Last administered on 20:45; Start 06/11/17 at 20:45; Stop 06/11/17 at 20:46; Status DC Clonidine (Catapres) 0.1 mg ONCE ONCE PO Last administered on 06/11/17 22:15 ; Start 06/11/17 at 22:15; Stop 06/11/17 at 22:16; Status DC Atenolol (Tenormin) 50 mg ONCE ONCE PO Last administered on 06/12/17 08:11; Start 06/12/17 at 08:00; Stop 06/12/17 at 08:01; Status DC Lisinopril (Prinivil) 5 mg ONCE ONCE PO Last administered on 06/12/17 08:10 ; Start 06/12/17 at 08:00; Stop 06/12/17 at 08:01; Status DC Lisinopril (Prinivil) 5 mg ONCE ONCE PO Last administered on 06/12/17 11:04 ; Start 06/12/17 at 11:00; Stop 06/12/17 at 11:02; Status DC Clonidine (Catapres) 0.1 mg ONCE ONCE PO Last administered on 06/12/17 16:05 ; Start 06/12/17 at 15:45; Stop 06/12/17 at 15:47; Status DC Lorazepam (Ativan) 1 mg Q6H PRN PO MODERATE TO SEVERE ANXIETY Last administered on 07/25/17 20:55; Start 06/12/17 at 15:45 Lorazepam (Ativan Inj) 1 mg Q6H PRN IM MODERATE TO SEVERE ANXIETY; Start 06/12 at 15:45 Acetaminophen (Tylenol) 650 mg Q4H PRN PO Pain 1-5 or Temp >101F Last administered on 07/23/17 18:04; Start 06/12/17 at 15:45 Magnesium Hydroxide (Milk Of Magnesia Liq) 30 ml DAILY PRN PO CONSTIPATION; Start 06/12/17 at 15:45 Al Hydrox/Mg Hydrox/Simethicone (Mag-Al Plus Susp Liq) 30 ml Q6H PRN PO DYSPEPSIA; Start 06/12/17 at 15:45 Acyclovir (Zovirax) 800 mg DAILY PO Last administered on 1/11/18at 10:45; Start 06/12/17 at 16:00; Stop 07/27/17 at 16:58; Status DC Ketoconazole (Nizoral 2% Cream) 1 applic BID TOPICAL Last administered on 07/03 08:42; Start 06/12/17 at 21:00; Stop 07/04/17 at 11:55; Status DC Metoprolol Succinate (Toprol Xl) 50 mg DAILY PO Last administered on 06/15/17 08:07; Start 06/12/17 at 16:00; Stop 06/15/17 at 09:27; Status DC Quetiapine Fumarate (SEROquel) 600 mg HS PO Last administered on 07/26/17at 21: 31; Start 06/12/17 at 21:00 Non-Formulary Medication 1 tab BID PO ; Start 06/12/17 at 21:00; Status UNV Non-Formulary Medication 1 tab DAILY PO ; Start 06/12/17 at 16:00; Status UNV Non-Formulary Medication 2.5 mg DAILY PO ; Start 06/12/17 at 16:00; Status UNV Lisinopril (Prinivil) 2.5 mg DAILY PO Last administered on 06/13/17 09:00; Start 06/13/17 at 09:00; Stop 06/14/17 at 09:10; Status DC Miscellaneous (Pill Splitter) 1 ea UNSCH PRN OTHER SEE LABEL COMMENTS; Start 06/12/17 at 16:30 Patient Own Medication PT OWN MED: ODEFSEY... DAILY PO ; Start 06/13/17 at 09: 00; Status Future Hold Patient Own Medication PT OWN MED: CALCIUM CARBONA... BID PO ; Start 06/12/17 at 21:00; Status Future Hold Clonidine (Catapres) 0.1 mg Q6H PRN PO SBP>160, DBP>90 Last administered on 02:22; Start 06/12/17 at 18:30; Stop 06/15/17 at 09:27; Status DC Pneumococcal Polyvalent Vaccine (Pneumovax-23 Inj) 25 mcg ONCE ONCE IM ; Start 06/13/17 at 09:00; Stop 06/13/17 at 09:01; Status DC Lisinopril (Prinivil) 10 mg DAILY PO Last administered on 06/19/17 08:16; Start 06/15/17 at 09:00; Stop 06/19/17 at 11:23; Status DC Quetiapine Fumarate (SEROquel) 25 mg BID@,12 PO Last administered on 08:07; Start 06/14/17 at 12:00; Stop 06/15/17 at 11:15; Status DC Clonidine (Catapres) 0.1 mg ONCE ONCE PO Last administered on 06/14/17 22:04 ; Start 06/14/17 at 21:15; Stop 06/14/17 at 21:16; Status DC Hydralazine HCl (Apresoline) 50 mg ONCE ONCE PO Last administered on 04:19; Start 06/15/17 at 03:30; Stop 06/15/17 at 03:31; Status DC Haloperidol Lactate (Haldol Inj) 4 mg ONCE ONCE IV PUSH Last administered on 06/15/17 06:11; Start 06/15/17 at 06:00; Stop 06/15/17 at 06:01; Status DC Clonidine (Catapres) 0.2 mg Q6H PRN PO SBP>160, DBP>90 Last administered on 17:22; Start 06/15/17 at 12:30 Metoprolol Succinate (Toprol Xl) 100 mg DAILY PO Last administered on at 10:47; Start 06/16/17 at 09:00 Metoprolol Succinate (Toprol Xl) 50 mg ONCE ONCE PO Last administered on 09:52; Start 06/15/17 at 09:30; Stop 06/15/17 at 09:39; Status DC Quetiapine Fumarate (SEROquel) 50 mg BID@,12 PO Last administered on 09:00; Start 06/15/17 at 12:00; Stop 06/18/17 at 12:01; Status DC Nifedipine (Procardia Xl) 60 mg ONCE ONCE PO Last administered on 06/15/17 23 :27; Start 06/15/17 at 23:15; Stop 06/15/17 at 23:16; Status DC Nifedipine (Procardia Xl) 60 mg DAILY PO Last administered on 06/19/17 08:16; Start 06/16/17 at 09:00; Stop 06/19/17 at 12:12; Status DC Potassium Chloride (KCl) 40 meq ONCE ONCE PO Last administered on 06/16/17 11 :30; Start 06/16/17 at 11:30; Stop 06/16/17 at 11:31; Status DC Enalaprilat (Vasotec Inj) 2.5 mg ONCE ONCE IV PUSH Last administered on 00:05; Start 06/16/17 at 23:45; Stop 06/16/17 at 23:46; Status DC Hydralazine HCl (Apresoline) 10 mg Q8H PO Last administered on 06/19/17 08:16 ; Start 06/17/17 at 09:00; Stop 06/19/17 at 11:23; Status DC Quetiapine Fumarate (SEROquel) 100 mg BID@09,12 PO Last administered on at 12:00; Start 06/18/17 at 12:00 Clonidine (Catapres) 0.2 mg ONCE ONCE PO Last administered on 06/19/17 05:57 ; Start 06/19/17 at 05:30; Stop 06/19/17 at 05:38; Status DC Lisinopril (Prinivil) 20 mg DAILY PO Last administered on 07/24/17at 09:00; Start 06/20/17 at 09:00; Stop 07/25/17 at 08:38; Status DC Lisinopril (Prinivil) 10 mg ONCE ONCE PO Last administered on 06/19/17 12:03 ; Start 06/19/17 at 11:30; Stop 06/19/17 at 11:59; Status DC Nifedipine (Procardia Xl) 90 mg DAILY PO Last administered on 07/23/17at 08:22; Start 06/20/17 at 09:00; Status Future Hold Hydralazine HCl (Apresoline) 25 mg Q8HR PO Last administered on 07/26/17at 06:26 ; Start 06/21/17 at 22:00 Benztropine Mesylate (Cogentin) 1 mg Q12H PRN PO EXTRA PYRAMIDAL SYMPTOMS; Start 07/16/17 at 11:45 Benztropine Mesylate (Cogentin Inj) 1 mg Q12H PRN IM EPS, unable to take PO; Start 07/16/17 at 11:45 Pharmacy Profile Note 0 ml @ 0 mls/hr UNSCH OTHER ; Start 07/23/17 at 20:15; Stop 07/24/17 at 16:31; Status DC Piperacillin Sod/ Tazobactam Sod 100 ml @ 200 mls/hr Q6H IV ; Start 07/23/17 at 21:00; Stop 07/24/17 at 03:45; Status DC Vancomycin HCl 1000 mg/Sodium Chloride 250 ml @ 250 mls/hr Q12H IV ; Start 07/23 at 21:00; Stop 07/24/17 at 03:48; Status DC Miscellaneous Information SPECIFIC LAB TO BE HUA... ONCE ONCE .XX ; Start 07/25 at 15:45; Stop 07/25/17 at 15:46; Status Cancel Piperacillin Sod/ Tazobactam Sod 100 ml @ 200 mls/hr Q6H IV ; Start 07/24/17 at 03:45; Status Cancel Piperacillin Sod/ Tazobactam Sod 100 ml @ 200 mls/hr Q6H IV Last administered on 07/24/17at 11:56; Start 07/24/17 at 06:00; Stop 07/24/17 at 16:31; Status DC Vancomycin HCl 1000 mg/Sodium Chloride 250 ml @ 250 mls/hr Q12H IV Last administered on 07/24/17at 14:26; Start 07/24/17 at 04:00; Stop 07/24/17 at 16:31; Status DC Lisinopril (Prinivil) 10 mg DAILY PO ; Start 07/25/17 at 09:45; Stop 07/26/17 at 08:36; Status DC Lisinopril (Prinivil) 5 mg DAILY PO Last administered on 07/26/17at 10:47; Start 07/26/17 at 09:00 A/P Problem List: (1) Hypertension ICD Code: I10 - Essential (primary) hypertension Status: Chronic (2) HIV (human immunodeficiency virus infection) ICD Code: Z21 - Asymptomatic human immunodeficiency virus [HIV] infection status Status: Chronic (3) Viral rash ICD Code: B09 - Unspecified viral infection characterized by skin and mucous membrane lesions Assessment and Plan 61 year-old man with Febrile illness Currently afebrile Diffuse non-pruritic rash in a patient with history of HIV PV B-19 negative, measles IgM negative, currently asymptomatic. Appreciate input from infectious disease specialist Hypertension, chronic Normotensive at the moment. Currently on Cipro, hydralazine, metoprolol. Procardia was held. HIV Currently off HAART DVT prophylaxis-No mechanical or pharmaceutical VTE prophylaxis administered due to patient's low risk assessment of VTE. Patient actively ambulating. Encouraged ambulation. Problem Qualifiers (1) Hypertension: Qualified Codes: I10 - Essential (primary) hypertension Gabriella Power MD Aug 02, 2017 10:40
--- NOTE | 2017-08-02 14:20 | PD.TTN ---
Patient Problems 1. Discharge planning 2. Medication compliance 3. Knowledge deficit 4. Lack of coping skills Progress Toward Goals Provider Present: Dr. Master Cole, Dr. Binu Tabares Provider Input: 07/31/17 patient is now refusing all meds and treatment 07/23/2017 - Dr. Tabares reports the patient remains compliant with medications and without behavoral disturbance. 07/18/2017 - Patient remains a placement issue, compliant with medications, and without behavioral disturbance. 07/02/17 Patient remains psychotic and delusional. 06/27/2017 Patient will require placement in an Assisted Living Facility. He has a histroy of TBI, and fixed delusions that are sikh nature. 06/20/2017; patient is at the highest dosage of medication and might need to have an additional med added to level off his mood/behavior. Patient is new to unit and will be starting on a medication regiment. Will monitor progress of patient throughout the week. 06/18/2017 - Dr. Tabares reports the patient would like placement in an [facility]. 06/25 - Patient will continue to be looked for in regards to placement. Not behavioral issues on the unit. 07/04/17 Patient continues to meet criteria. Patient has court tomorrow Nurse(s) Present: TONY Lara Nurse(s) Input: 06/20/2017; Patient is taking his medication, eating meals; however patient displays manic behavior, up doing the night hours with limited sleep. 06/25 patient is noted to have no behavioral issues on the unit and has been compliant with medications. denies side effects 07/04/17 Patient's nurse Sara reports patient is religioulsy preoccupied, continues to practice ballet exercies. Medication compliant. Patient is calm and cooperative. Psychiatric Counselors Present: Jenny Schroeder LCSW, Marbella Britton, [facility], Simin Trejo, [facility], Linda Chandler, [facility] Psych Therapist Input: 07/31/17 patient is delusional and medically not stable 07/23/2017 - Patient remains pleasant, religiously preoccupied, and delusional. 07/18/2017 - Counselor reported that the patient remains delusional and religiously preoccupied. [facility] and [facility] for admission addessment. 07/02/17 Patient remains medication compliant and continues to isolate. He does not saocialize with peers or staff. 06/27/2017 Counselor will continue to search for approparit placement for this patient, 06/20/2017 Counselor will begin the process for finding appropriate placement Counselor will be in contact with family memebers to recieve collateral information in regards to patient's progress. 06-18-2017 - Counselor has faxed patient's packet to [facility] for [facility] review. Counselor called [facility] and there are no beds available at this time. 06/25 patient is cooperative and calm on the unit and counselor will look for placement. Patient does not socialize with peers but is pleasant. 07/04/17 Patient is medication compliant. Patient presents calm, cooperative, affect appropriate. patient's speech is clear, and organized. Patient does present religiously preoccupied. Patient isolates, on unit Group Spec/RT/OT/SCHMIDT Present: Bel Velázquez, GPS, KAROLYN RestrepoA, Kane Solis, OT, Zen Gallego, BRAYAN Group Spec/RT/OT/SCHMIDT Input: 07/1617 does not attend 07/23/2017 - Patient refuses to attend groups. 07/18/2017 - Patient refuses to attend groups. 07/02/17 Patient isolates to his room and the only group he has attended so far is coffee shop. 06/27/2017 Patient refuses most groups, although he will occasionally attemd fresh air and snack time. 06/20/2017: Attends most groups, very cooperate, very hyperverbal Patient is new to unit and has not attend groups yet. 06-18-2017 - Patient attends select groups and his behavior is appropriate. 07/04/17 Patient attends exercise occasionally Discharge Plan SMA Patient will be discharged to an appropriate [facility] when accepted. Documentation Scribe: Simin Trejo [facility] Date Resolved: Jul 23, 2017 Jenny Schroeder LCSW Aug 02, 2017 14:20
--- NOTE | 2017-08-02 16:55 | HHI.PYPN ---
Subjective Remarks Patient seen for follow-up, chart reviewed. Discussion with nursing staff reported that the patient still refusing medications, noted to be more anxious today and stated that his brothers are taking his money. Patient found lying on hospital bed, noted to be irritable when speaking about treatment and compliance with medications. Patient states that he would like to be discharged to [facility]" with no concrete plan. Patient continues to believe that Logan is curing rash along with synagogue delusions and AH. Review of Systems Except as stated in HPI: all other systems reviewed are Neg Mental Status Examination Appearance: Appropriate, Other (noted with generalized rash) Consciousness: Alert Orientation: Person, Place (at least) Motor Activity: Normal gait, Other Speech: Unremarkable Language: Adequate Fund of Knowledge: Adequate Attention and Concentration: Inadequate Memory: Unremarkable Mood: Irritable Affect: Irritable Thought Process & Associations: Linear Thought Content: Bizarre thinking, Hallucinations, Delusional Hallucination Type: Auditory (denies today) Delusion Type: Bizarre, Paranoid (regarding medications), Other (synagogue) Suicidal Ideation: No Suicidal Plan: No Suicidal Intention: No Homicidal Ideation: No Homicidal Plan: No Homicidal Intention: No Insight: Poor Judgment: Poor Results Labs labs reviewed Date/Time Source Procedure Growth Status 07/23/17 20:14 Blood Peripheral Aerobic Blood Culture - Final NO GROWTH IN 5 DAYS Complete 07/23/17 20:14 Anaerobic Blood Culture - Final Staphylococcus Epidermidis Complete Vitals/IOs Vital Signs Date Time Temp Pulse Resp B/P (MAP) Pulse Ox O2 Delivery O2 Flow Rate FiO2 08/02/17 06:28 98.7 103 18 138/82 (100) 98 Intake and Output 08/02/17 08/02/17 08/02/17 07:59 15:59 23:59 Intake Total 240 ml 480 ml Balance 240 ml 480 ml Assessment & Plan Problem List: (1) Psychotic disorder ICD Codes: F29 - Unspecified psychosis not due to a substance or known physiological condition Status: Acute Assessment & Plan Patient continues to refuse treatment and continues with synagogue delusions and auditory hallucinations. Continue to encourage patient to comply with treatment. Continue current treatment. Currently not medically cleared by infectious disease consult assessment. Continue recommendations as per primary medical team. Discharge planning in progress. Will start state hospital referral. Justification for Cont. Inpt. At risk for decompensation at lower level of care. Discharge Planning To be determined Problem Qualifiers (1) Psychotic disorder: Qualified Codes: F23 - Brief psychotic disorder Jhoan Tabares MD Aug 02, 2017 16:55
[2017-08-02 17:31] VITALS: BP 138/81; PULSE 112; RESP 18; TEMP 97.4; O2SAT 95
[2017-08-02] MEDS: QUEtiapine FUMARATE 300 MG TAB PO SCH (21:00)
[2017-08-03 06:00] VITALS: BP 123/71; PULSE 109; RESP 18; TEMP 98.3; O2SAT 98
[2017-08-03] MEDS: hydrALAZINE HCL 25 MG TAB PO SCH ×3 (06:00→20:59)
--- NOTE | 2017-08-03 08:22 | HHI.PYPN ---
Subjective Remarks Patient seen for follow-up, chart reviewed. Discussion she staff reported patient continues to be irritable when talking about medications as he continues to refuse this, patient slept well. Patient was found walking around his room noted to be calm and cooperative. Patient noted to be slightly less irritable today but again refusing medications. Patient states that he slept well, eating and drinking well no other physical complaints. Patient reports his mood as being "excellent". Patient continues to endorse sikhism delusions stating that his architecture manager and being he calls "fireball" are in his left year as well as Satan being in his right foot. Review of Systems Except as stated in HPI: all other systems reviewed are Neg Mental Status Examination Appearance: Appropriate, Other (noted with generalized rash) Consciousness: Alert Orientation: Person, Place (at least) Motor Activity: Normal gait, Other Speech: Unremarkable Language: Adequate Fund of Knowledge: Adequate Attention and Concentration: Inadequate Memory: Unremarkable Mood: Irritable (when speaking about medications) Affect: Blunt (with occasional smiling) Thought Process & Associations: Linear Thought Content: Bizarre thinking, Hallucinations, Delusional Hallucination Type: Auditory (denies today) Delusion Type: Bizarre, Paranoid (regarding medications), Other (sikhism) Suicidal Ideation: No Suicidal Plan: No Suicidal Intention: No Homicidal Ideation: No Homicidal Plan: No Homicidal Intention: No Insight: Poor Judgment: Poor Results Labs Date/Time Source Procedure Growth Status 07/23/17 20:14 Blood Peripheral Aerobic Blood Culture - Final NO GROWTH IN 5 DAYS Complete 07/23/17 20:14 Anaerobic Blood Culture - Final Staphylococcus Epidermidis Complete Vitals/IOs Vital Signs Date Time Temp Pulse Resp B/P (MAP) Pulse Ox O2 Delivery O2 Flow Rate FiO2 08/03/17 06:00 98.3 109 18 123/71 (88) 98 Intake and Output 08/03/17 08/03/17 08/04/17 08:00 16:00 00:00 Intake Total 940 ml Balance 940 ml Assessment & Plan Problem List: (1) Psychotic disorder ICD Codes: F29 - Unspecified psychosis not due to a substance or known physiological condition Status: Acute Assessment & Plan patient continues to refuse medications, noted to have generalized rash improving. Patient continues with paranoid, bizarre delusions with sikhism preoccupation and auditory hallucination from these sikhism figures. Continue to encourage patient to maintain compliance with treatment. Continue recommendations as per primary medical team. Patient has not been cleared yet by infectious disease retail consultant. Discharge planning in progress. Justification for Cont. Inpt. At risk for further decompensation if at lower level of care Discharge Planning To be determined. Problem Qualifiers (1) Psychotic disorder: Qualified Codes: F23 - Brief psychotic disorder Jhoan Tabares MD Aug 03, 2017 08:22
[2017-08-03] MEDS: QUEtiapine FUMARATE 100 MG TAB PO SCH ×2 (08:45→12:00)
[2017-08-03] MEDS: METOPROLOL SUCCINATE 50 MG EXTENDED RELEASE TAB PO SCH (08:45)
[2017-08-03] MEDS: LISINOPRIL 5 MG TAB PO SCH (08:45)
--- NOTE | 2017-08-03 09:30 | HHI.PR ---
Subjective Remarks The patient said he felt excellent. He said that his rash was starting to change for the better. He did not want any lotion for his skin. He denied any symptoms. Discussed with nursing at the bedside. Objective Vitals Vital Signs Date Time Temp Pulse Resp B/P (MAP) Pulse Ox O2 Delivery O2 Flow Rate FiO2 08/03/17 06:00 98.3 109 18 123/71 (88) 98 08/02/17 17:31 97.4 112 18 138/81 (100) 95 I/O 08/02/17 08/02/17 08/02/17 08/03/17 08/03/17 08/03/17 07:00 15:00 23:00 07:00 15:00 23:00 Intake Total 720 ml 480 ml 720 ml 940 ml 480 ml Balance 720 ml 480 ml 720 ml 940 ml 480 ml Intake Oral 720 ml 480 ml 720 ml 940 ml 480 ml # Voids 5 1 2 Imaging Last Impressions Liver Ultrasound 07/26/17 0000 Signed Impressions: Service Date/Time: July 16:09 - CONCLUSION: 1. Unremarkable abdominal ultrasound examination. Randall Patten MD Chest X-Ray 07/23/17 1850 Signed Impressions: Service Date/Time: Sunday, July 23, 2017 19:34 - CONCLUSION: Normal examination. Sherif Steel MD Head CT 06/20/17 0000 Signed Impressions: Service Date/Time: June 03:11 - CONCLUSION: 1. No acute hemorrhage or mass effect. 2. Areas of encephalomalacia in the left temporal and parietal lobes. 3. Mild to moderate atrophic change. Simone Wolf MD Renal Ultrasound 06/19/17 0000 Signed Impressions: Service Date/Time: Monday, June 19, 2017 16:47 - CONCLUSION: 1. Elevated velocities in the proximal and mid right renal artery. 2. Nonvisualization of the left mid renal artery with elevated velocity in the distal portion of the renal artery. 3. Echogenic kidneys characteristic of medical renal disease. There is no hydronephrosis. Simone Wolf MD Objective Remarks GENERAL: No distress. SKIN: Diffuse non-pruritic macular erythematous with desqaumatous rash covering bilateral lower extremities, trunk, upper extremities. HEAD: Normocephalic. EYES: No scleral icterus. No injection or drainage. NECK: Supple, trachea midline. No JVD or lymphadenopathy. CARDIOVASCULAR: Tachycardic without murmurs, gallops, or rubs. RESPIRATORY: Breath sounds equal bilaterally. No accessory muscle use. GASTROINTESTINAL: Abdomen soft, non-tender, nondistended. MUSCULOSKELETAL: No cyanosis, or edema. BACK: Nontender without obvious deformity. No CVA tenderness. Procedures NONE Medications and IVs Current Medications Medications (Trade) Dose Ordered Sig/Zina Route Start Time Stop Time Status Last Admin (Ativan) 1 mg Q6H PRN PO 06/12/17 15:45 07/25/17 20:55 (Ativan Inj) 1 mg Q6H PRN IM 06/12/17 15:45 (Tylenol) 650 mg Q4H PRN PO 06/12/17 15:45 07/23/17 18:04 (Milk Of Magnesia Liq) 30 ml DAILY PRN PO 06/12/17 15:45 (Mag-Al Plus Susp Liq) 30 ml Q6H PRN PO 06/12/17 15:45 (SEROquel) 600 mg HS PO 06/12/17 21:00 07/26/17 21:31 (Pill Splitter) 1 ea UNSCH PRN OTHER 06/12/17 16:30 Patient Own Medication PT OWN MED: ODEFSEY... DAILY PO 06/13/17 09:00 Future Hold Patient Own Medication PT OWN MED: CALCIUM CARBONA... BID PO 06/12/17 21:00 Future Hold (Catapres) 0.2 mg Q6H PRN PO 06/15/17 12:30 06/21/17 17:22 (Toprol Xl) 100 mg DAILY PO 06/16/17 09:00 07/26/17 10:47 (SEROquel) 100 mg BID@09,12 PO 06/18/17 12:00 07/26/17 12:00 (Procardia Xl) 90 mg DAILY PO 06/20/17 09:00 Future Hold 07/23/17 08:22 (Apresoline) 25 mg Q8HR PO 06/21/17 22:00 07/26/17 06:26 (Cogentin) 1 mg Q12H PRN PO 07/16/17 11:45 (Cogentin Inj) 1 mg Q12H PRN IM 07/16/17 11:45 (Prinivil) 5 mg DAILY PO 07/26/17 09:00 07/26/17 10:47 A/P Problem List: (1) Hypertension ICD Code: I10 - Essential (primary) hypertension Status: Chronic (2) HIV (human immunodeficiency virus infection) ICD Code: Z21 - Asymptomatic human immunodeficiency virus [HIV] infection status Status: Chronic (3) Viral rash ICD Code: B09 - Unspecified viral infection characterized by skin and mucous membrane lesions Assessment and Plan Febrile illness/ Diffuse non-pruritic rash in a patient with history of HIV PV B-19 negative, measles IgM negative, currently asymptomatic. Afebrile. Appreciate input from infectious disease specialist. The pt has leukocytosis. - monitor off of antibiotics. - repeat CBC. Elevated LFTs Liver US unremarkable. - trend LFTs. Hypertension Normotensive at the moment. Nephrology consult appreciated. Renal ultrasound showed: Elevated velocities in the proximal and mid right renal artery; Nonvisualization of the left mid renal artery with elevated velocity in the distal portion of the renal artery; Echogenic kidneys characteristic of medical renal disease. - Currently on lisinopril, hydralazine, metoprolol. Procardia was held, will resume. The pt has been refusing meds. HIV Currently off HAART. - outpt follow-up. Bipolar disorder, schizophrenia Neuropsychology consult appreciated. - Managed by psychiatry team. DVT prophylaxis-No mechanical or pharmaceutical VTE prophylaxis administered due to patient's low risk assessment of VTE. Patient actively ambulating. Encouraged ambulation. Discharge Planning Per primary Problem Qualifiers (1) Hypertension: Qualified Codes: I10 - Essential (primary) hypertension Simone Jones DO Aug 03, 2017 09:30
[2017-08-03 13:50] LABS: HEMATOCRIT 39.1 % (39.0-51.0); HEMOGLOBIN 13.1 GM/DL (13.0-17.0); MEAN CELL VOLUME 86.9 FL (80.0-100.0); MEAN CORPUSCULAR HEMOGLOBIN 29.1 PG (27.0-34.0); MEAN CORPUSCULAR HGB CONC 33.5 % (32.0-36.0); PLATELET COUNT 284 TH/MM3 (150-450); RED CELL DISTRIBUTION WIDTH 13.5 % (11.6-17.2); WHITE BLOOD COUNT 22.5 TH/MM3 (4.0-11.0)
[2017-08-03 14:30] LABS: ALBUMIN 2.9 GM/DL (3.4-5.0); ALT (GPT) 472 U/L (12-78); AST (GOT) 411 U/L (15-37); BLOOD UREA NITROGEN 16 MG/DL (7-18); CALCIUM 8.5 MG/DL (8.5-10.1); CHLORIDE 99 MEQ/L (98-107); CREATININE 0.85 MG/DL (0.60-1.30); GLOMERULAR FILTRATION RATE 92 ML/MIN (>89); GLUCOSE,RANDOM 103 MG/DL (74-106); SODIUM (NA) 133 MEQ/L (136-145)
[2017-08-03 14:33] LABS: ALKALINE PHOSPHATASE 427 U/L (45-117); TOTAL BILIRUBIN ADULT 0.7 MG/DL (0.2-1.0); TOTAL PROTEIN 5.6 GM/DL (6.4-8.2)
[2017-08-03 14:45] LABS: BANDS 2 % (0-6); LYMPHOCYTES 59 % (9-44); MONOCYTES 7 % (0-8); NEUTROPHIL # MANUAL DIFF 6.5 TH/MM3 (1.8-7.7); POLYS (SEG NEUTROPHILS) 27 % (16-70)
[2017-08-03 14:46] LABS: SMUDGE CELLS PRESENT PRESENT
[2017-08-03 17:09] VITALS: BP 138/72; PULSE 113; RESP 18; TEMP 97.8; O2SAT 99
--- NOTE | 2017-08-03 18:32 | HHI.IDPN ---
Subjective Subjective Remarks reconsulted 2/2 persistent rash, leukocytosis and intermittens fever no pruritis Also LFTs are going up Antibiotics none Allergies: Coded Allergies: Sulfa (Sulfonamide Antibiotics) (Unverified Allergy, Severe, Hives, ) Objective . Vital Signs Date Time Temp Pulse Resp B/P (MAP) Pulse Ox O2 Delivery O2 Flow Rate FiO2 08/03/17 17:09 97.8 113 18 138/72 (94) 99 08/03/17 06:00 98.3 109 18 123/71 (88) 98 08/03/17 08/03/17 08/04/17 15:00 23:00 07:00 Intake Total 960 ml 1920 ml Balance 960 ml 1920 ml Intake Oral 960 ml 1920 ml . Laboratory Tests Test 08/03/17 12:50 White Blood Count 22.5 TH/MM3 Red Blood Count 4.50 MIL/MM3 Hemoglobin 13.1 GM/DL Hematocrit 39.1 % Mean Corpuscular Volume 86.9 FL Mean Corpuscular Hemoglobin 29.1 PG Mean Corpuscular Hemoglobin Concent 33.5 % Red Cell Distribution Width 13.5 % Platelet Count 284 TH/MM3 Mean Platelet Volume 9.0 FL CBC Comment AUTO DIFF Differential Total Cells Counted 100 Neutrophils % (Manual) 27 % Band Neutrophils % 2 % Lymphocytes % 59 % Monocytes % 7 % Eosinophils % 5 % Neutrophils # (Manual) 6.5 TH/MM3 Differential Comment FINAL DIFF MANUAL Smudge Cells PRESENT Platelet Estimate NORMAL Platelet Morphology Comment NORMAL Red Cell Morphology Comment NORMAL Laboratory Tests Test 08/03/17 12:50 Blood Urea Nitrogen 16 MG/DL Creatinine 0.85 MG/DL Random Glucose 103 MG/DL Total Protein 5.6 GM/DL Albumin 2.9 GM/DL Calcium Level 8.5 MG/DL Alkaline Phosphatase 427 U/L Aspartate Amino Transf (AST/SGOT) 411 U/L Alanine Aminotransferase (ALT/SGPT) 472 U/L Total Bilirubin 0.7 MG/DL Sodium Level 133 MEQ/L Potassium Level 4.3 MEQ/L Chloride Level 99 MEQ/L Carbon Dioxide Level 25.0 MEQ/L Anion Gap 9 MEQ/L Estimat Glomerular Filtration Rate 92 ML/MIN Imaging Last Impressions Liver Ultrasound 07/26/17 0000 Signed Impressions: Service Date/Time: July 16:09 - CONCLUSION: 1. Unremarkable abdominal ultrasound examination. Randall Patten MD Chest X-Ray 07/23/17 1850 Signed Impressions: Service Date/Time: Sunday, July 23, 2017 19:34 - CONCLUSION: Normal examination. Sherif Steel MD Head CT 06/20/17 0000 Signed Impressions: Service Date/Time: June 03:11 - CONCLUSION: 1. No acute hemorrhage or mass effect. 2. Areas of encephalomalacia in the left temporal and parietal lobes. 3. Mild to moderate atrophic change. Simone Wolf MD Renal Ultrasound 06/19/17 0000 Signed Impressions: Service Date/Time: Monday, June 19, 2017 16:47 - CONCLUSION: 1. Elevated velocities in the proximal and mid right renal artery. 2. Nonvisualization of the left mid renal artery with elevated velocity in the distal portion of the renal artery. 3. Echogenic kidneys characteristic of medical renal disease. There is no hydronephrosis. Simone Wolf MD Physical Exam CONSTITUTIONAL/GENERAL: This is an adequately nourished patient, in no apparent distress. Pt appears well TUBES/LINES/DRAINS: SKIN: No jaundice, , or lesions Diffuse erytherodermia with peeling and violacious discoloration of BLE which is new since myu last visit EYES: Pupils equal and round and reactive. Extraocular motions intact. + coryza present ENT: Hearing grossly normal. Nose without bleeding or purulent drainage. Throat without visible erythema, exudates, masses, or lesions. No enanthema noted CARDIOVASCULAR: Regular rate and rhythm without murmurs, gallops, or rubs. No JVD. Peripheral pulses symmetric. RESPIRATORY/CHEST: Symmetric, unlabored respirations. Clear to auscultation. Breath sounds equal bilaterally. No wheezes, rales, or rhonchi. GASTROINTESTINAL: Abdomen soft, non-tender, nondistended. Tatum negative No hepato-splenomegaly, or palpable masses. No guarding. Bowel sounds present. MUSCULOSKELETAL: Extremities without clubbing, cyanosis, or edema. No joint tenderness or effusion noted. No calf tenderness. No mottling or clubbing. NEUROLOGICAL: Awake and alert. Motor and sensory grossly within normal limits. Follows commands. Clear speech . Moves all extremities. PSYCHIATRIC: No obvious anxiety/depression. no apparent hallucinations or other psychotic thought process. Assessment & Plan Remarks HIV disease with CD4 > 400, off HAART Fever with dermitis and hepatitis, subacute Measele, parvo and EBV serologies not cw culprit Low grade Staph epi bactremia, favouring contaminantion crypto CMV CD4 HIV VL LFTs skin bx Jammie Palacios MD Aug 03, 2017 18:32
[2017-08-03] MEDS: QUEtiapine FUMARATE 300 MG TAB PO SCH (20:58)
[2017-08-04] MEDS: hydrALAZINE HCL 25 MG TAB PO SCH (04:07)
[2017-08-04 05:48] LABS: ALBUMIN 3.1 GM/DL (3.4-5.0); ALT (GPT) 562 U/L (12-78); AST (GOT) 470 U/L (15-37); BICARBONATE 29.1 MEQ/L (21.0-32.0); BLOOD UREA NITROGEN 11 MG/DL (7-18); CALCIUM 8.6 MG/DL (8.5-10.1); CHLORIDE 100 MEQ/L (98-107); CREATININE 0.79 MG/DL (0.60-1.30); GLOMERULAR FILTRATION RATE 100 ML/MIN (>89); GLUCOSE,RANDOM 101 MG/DL (74-106); SODIUM (NA) 136 MEQ/L (136-145)
[2017-08-04 05:50] LABS: ALKALINE PHOSPHATASE 461 U/L (45-117); TOTAL BILIRUBIN ADULT 0.9 MG/DL (0.2-1.0); TOTAL PROTEIN 5.9 GM/DL (6.4-8.2)
[2017-08-04 06:00] VITALS: BP 132/84; PULSE 104; RESP 18; TEMP 97.9; O2SAT 100
[2017-08-04] MEDS: METOPROLOL SUCCINATE 50 MG EXTENDED RELEASE TAB PO SCH (09:00)
[2017-08-04] MEDS: NIFEdipine 90 MG SUSTAINED RELEASE TAB PO SCH (09:00)
[2017-08-04] MEDS: QUEtiapine FUMARATE 100 MG TAB PO SCH ×2 (09:00→12:00)
[2017-08-04] MEDS: LISINOPRIL 5 MG TAB PO SCH (09:00)
--- NOTE | 2017-08-04 10:00 | HHI.PR ---
Subjective Remarks The patient was about to take a shower. He said that he thinks the rash came from the medications he received at the hospital. He is not interested in having a skin biopsy performed. He did not have any symptoms. Discussed with nursing at the bedside. Objective Vitals Vital Signs Date Time Temp Pulse Resp B/P (MAP) Pulse Ox O2 Delivery O2 Flow Rate FiO2 08/04/17 06:00 97.9 104 18 132/84 (100) 100 08/03/17 17:09 97.8 113 18 138/72 (94) 99 I/O 08/03/17 08/03/17 08/03/17 08/04/17 08/04/17 08/04/17 07:00 15:00 23:00 07:00 15:00 23:00 Intake Total 940 ml 960 ml 2880 ml 960 ml 360 ml Balance 940 ml 960 ml 2880 ml 960 ml 360 ml Intake Oral 940 ml 960 ml 2880 ml 960 ml 360 ml # Voids 2 8 Result Diagram: 08/03/17 1250 08/04/17 0505 Imaging Last Impressions Liver Ultrasound 07/26/17 0000 Signed Impressions: Service Date/Time: July 16:09 - CONCLUSION: 1. Unremarkable abdominal ultrasound examination. Randall Patten MD Chest X-Ray 07/23/17 1850 Signed Impressions: Service Date/Time: Sunday, July 23, 2017 19:34 - CONCLUSION: Normal examination. Sherif Steel MD Head CT 06/20/17 0000 Signed Impressions: Service Date/Time: June 03:11 - CONCLUSION: 1. No acute hemorrhage or mass effect. 2. Areas of encephalomalacia in the left temporal and parietal lobes. 3. Mild to moderate atrophic change. Simone Wolf MD Renal Ultrasound 06/19/17 0000 Signed Impressions: Service Date/Time: Monday, June 19, 2017 16:47 - CONCLUSION: 1. Elevated velocities in the proximal and mid right renal artery. 2. Nonvisualization of the left mid renal artery with elevated velocity in the distal portion of the renal artery. 3. Echogenic kidneys characteristic of medical renal disease. There is no hydronephrosis. Simone Wolf MD Objective Remarks GENERAL: No distress. SKIN: Diffuse non-pruritic macular erythematous with desqaumatous rash covering bilateral lower extremities, trunk, upper extremities. HEAD: Normocephalic. EYES: No scleral icterus. No injection or drainage. NECK: Supple, trachea midline. No JVD or lymphadenopathy. CARDIOVASCULAR: Tachycardic without murmurs, gallops, or rubs. RESPIRATORY: Breath sounds equal bilaterally. No accessory muscle use. GASTROINTESTINAL: Abdomen soft, non-tender, nondistended. MUSCULOSKELETAL: No cyanosis, or edema. BACK: Nontender without obvious deformity. No CVA tenderness. NEURO: No gross deficits. Procedures NONE Medications and IVs Current Medications Medications (Trade) Dose Ordered Sig/Zina Route Start Time Stop Time Status Last Admin (Ativan) 1 mg Q6H PRN PO 06/12/17 15:45 07/25/17 20:55 (Ativan Inj) 1 mg Q6H PRN IM 06/12/17 15:45 (Tylenol) 650 mg Q4H PRN PO 06/12/17 15:45 07/23/17 18:04 (Milk Of Magnesia Liq) 30 ml DAILY PRN PO 06/12/17 15:45 (Mag-Al Plus Susp Liq) 30 ml Q6H PRN PO 06/12/17 15:45 (SEROquel) 600 mg HS PO 06/12/17 21:00 07/26/17 21:31 (Pill Splitter) 1 ea UNSCH PRN OTHER 06/12/17 16:30 Patient Own Medication PT OWN MED: ODEFSEY... DAILY PO 06/13/17 09:00 Future Hold Patient Own Medication PT OWN MED: CALCIUM CARBONA... BID PO 06/12/17 21:00 Future Hold (Catapres) 0.2 mg Q6H PRN PO 06/15/17 12:30 06/21/17 17:22 (Toprol Xl) 100 mg DAILY PO 06/16/17 09:00 07/26/17 10:47 (SEROquel) 100 mg BID@09,12 PO 06/18/17 12:00 07/26/17 12:00 (Procardia Xl) 90 mg DAILY PO 06/20/17 09:00 Future hold 07/23/17 08:22 (Apresoline) 25 mg Q8HR PO 06/21/17 22:00 07/26/17 06:26 (Cogentin) 1 mg Q12H PRN PO 07/16/17 11:45 (Cogentin Inj) 1 mg Q12H PRN IM 07/16/17 11:45 (Prinivil) 5 mg DAILY PO 07/26/17 09:00 07/26/17 10:47 A/P Problem List: (1) Hypertension ICD Code: I10 - Essential (primary) hypertension Status: Chronic (2) HIV (human immunodeficiency virus infection) ICD Code: Z21 - Asymptomatic human immunodeficiency virus [HIV] infection status Status: Chronic (3) Viral rash ICD Code: B09 - Unspecified viral infection characterized by skin and mucous membrane lesions Assessment and Plan Febrile illness/ Diffuse non-pruritic rash in a patient with history of HIV PV B-19 negative, measles IgM negative, currently asymptomatic. Afebrile. Appreciate input from infectious disease specialist. The pt has leukocytosis. - monitor off of antibiotics. - repeat CBC. - work-up per ID in progress. - GS consulted for skin biopsy. Elevated LFTs Liver US unremarkable. LFTs are increasing. Possibly s/t Seroquel. - trend LFTs. - hepatitis profile pending. Hypertension Normotensive at the moment. Nephrology consult appreciated. Renal ultrasound showed: Elevated velocities in the proximal and mid right renal artery; Nonvisualization of the left mid renal artery with elevated velocity in the distal portion of the renal artery; Echogenic kidneys characteristic of medical renal disease. - Currently on lisinopril, hydralazine, metoprolol. Procardia was held, will resume. The pt has been refusing meds. HIV Currently off HAART. - outpt follow-up. Bipolar disorder, schizophrenia Neuropsychology consult appreciated. - Managed by psychiatry team. DVT prophylaxis: ambulation Discharge Planning Per primary Problem Qualifiers (1) Hypertension: Qualified Codes: I10 - Essential (primary) hypertension Simone Jones DO Aug 04, 2017 10:00
[2017-08-04] MEDS ORDERED: HALOPERIDOL LACTATE 5 MG/ML AMP IM STA (11:00)
[2017-08-04] MEDS ORDERED: LORazepam 2 MG/ML VIAL IM STA (11:01)
--- NOTE | 2017-08-04 11:02 | HHI.PYPN ---
Subjective Remarks Patient was seen today for psychiatric reevaluation. Chart was reviewed. Patient was discussed with nursing staff. On psychiatric evaluation patient is poorly cooperative, very irritable stating that he doesn't want to talk to me. The patient is a scheduled today for skin biopsy, but he is refusing to go and not giving any reason for his refusal. When I try to convince him he does not answer to any of my questions and continued to be oppositional and resistant. Patient seems to be quite disorganized and psychotic. With redirection the patient becomes can of agitated and verbally hostile, so he is medicated with Haldol 5 mg IM and Ativan 2 mg IM to help him to calm down and in order to perform the biopsy that is medically indicated. This was discussed with his guardian advocate. Review of Systems Except as stated in HPI: all other systems reviewed are Neg Mental Status Examination Appearance: Appropriate, Other (noted with generalized rash) Consciousness: Alert Orientation: Person, Place (at least) Motor Activity: Normal gait, Other Speech: Unremarkable Language: Adequate Fund of Knowledge: Adequate Attention and Concentration: Inadequate Memory: Unremarkable Mood: Irritable (when speaking about medications) Affect: Blunt (with occasional smiling) Thought Process & Associations: Linear Thought Content: Bizarre thinking, Hallucinations, Delusional Hallucination Type: Auditory (denies today) Delusion Type: Bizarre, Paranoid (regarding medications), Other (faith) Suicidal Ideation: No Suicidal Plan: No Suicidal Intention: No Homicidal Ideation: No Homicidal Plan: No Homicidal Intention: No Insight: Poor Judgment: Poor Results Labs Test 08/03/17 12:50 08/04/17 05:05 White Blood Count 22.5 TH/MM3 Red Blood Count 4.50 MIL/MM3 Hemoglobin 13.1 GM/DL Hematocrit 39.1 % Mean Corpuscular Volume 86.9 FL Mean Corpuscular Hemoglobin 29.1 PG Mean Corpuscular Hemoglobin Concent 33.5 % Red Cell Distribution Width 13.5 % Platelet Count 284 TH/MM3 Mean Platelet Volume 9.0 FL CBC Comment AUTO DIFF Differential Total Cells Counted 100 Neutrophils % (Manual) 27 % Band Neutrophils % 2 % Lymphocytes % 59 % Monocytes % 7 % Eosinophils % 5 % Neutrophils # (Manual) 6.5 TH/MM3 Differential Comment FINAL DIFF MANUAL Smudge Cells PRESENT Platelet Estimate NORMAL Platelet Morphology Comment NORMAL Red Cell Morphology Comment NORMAL Blood Urea Nitrogen 16 MG/DL 11 MG/DL Creatinine 0.85 MG/DL 0.79 MG/DL Random Glucose 103 MG/DL 101 MG/DL Total Protein 5.6 GM/DL 5.9 GM/DL Albumin 2.9 GM/DL 3.1 GM/DL Calcium Level 8.5 MG/DL 8.6 MG/DL Alkaline Phosphatase 427 U/L 461 U/L Aspartate Amino Transf (AST/SGOT) 411 U/L 470 U/L Alanine Aminotransferase (ALT/SGPT) 472 U/L 562 U/L Total Bilirubin 0.7 MG/DL 0.9 MG/DL Sodium Level 133 MEQ/L 136 MEQ/L Potassium Level 4.3 MEQ/L 4.4 MEQ/L Chloride Level 99 MEQ/L 100 MEQ/L Carbon Dioxide Level 25.0 MEQ/L 29.1 MEQ/L Anion Gap 9 MEQ/L 7 MEQ/L Estimat Glomerular Filtration Rate 92 ML/MIN 100 ML/MIN Date/Time Source Procedure Growth Status 07/23/17 20:14 Blood Peripheral Aerobic Blood Culture - Final NO GROWTH IN 5 DAYS Complete 07/23/17 20:14 Anaerobic Blood Culture - Final Staphylococcus Epidermidis Complete Vitals/IOs Vital Signs Date Time Temp Pulse Resp B/P (MAP) Pulse Ox O2 Delivery O2 Flow Rate FiO2 08/04/17 06:00 97.9 104 18 132/84 (100) 100 Intake and Output 08/04/17 08/04/17 08/05/17 08:00 16:00 00:00 Intake Total 1320 ml Balance 1320 ml Assessment & Plan Problem List: (1) Psychotic disorder ICD Codes: F29 - Unspecified psychosis not due to a substance or known physiological condition Status: Acute Assessment & Plan: Patient was be medicated with Ativan 2 mg and Haldol 5 mg IM stat to help him to calm down and perform biopsy. Continue current standing medications. Assessment & Plan Estimated LOS: days Justification for Cont. Inpt. Patient is acutely psychotic and he needs to continue psychiatric hospitalization for stabilization. Problem Qualifiers (1) Psychotic disorder: Qualified Codes: F23 - Brief psychotic disorder Leo Senior MD Aug 04, 2017 11:02
[2017-08-04] MEDS ORDERED: SODIUM CHLOR 0.9% 1000 ML INJ 1,000 ML IV SCH (13:30)
[2017-08-04 17:00] VITALS: BP 128/78; PULSE 114; RESP 18; TEMP 98; O2SAT 99
--- NOTE | 2017-08-04 22:16 | MB ---
cc: SHANIKA MARTINEZ MD DATE OF CONSULTATION 08/04/17 REASON FOR CONSULTATION Outpatient punch biopsy of rash. HISTORY OF PRESENT ILLNESS Mr. Arriaza is a 61-year-old patient currently admitted in the psychiatric facility who was noted to have a persistent fever and leukocytosis. The patient has a history of HIV. The patient was seen and evaluated by Dr. Jammie Palacios. The patient is noted to have a diffuse rash which was thought to be likely secondary to a viral illness. She requested surgical evaluation of rash with punch biopsy. According to the patient, he states the rash has been present for years and that he is "going to take care of it". He told me he was not interested in any sort of surgical procedure or biopsy of the rash. He told me not to worry about it and he would be fine. PAST MEDICAL HISTORY 1. The patient has a longstanding psychiatric diagnosis of which I believe is bipolar disorder and schizophrenia. 2. Hypertension. 3. HIV. PAST SURGICAL HISTORY He denies any previous surgeries. MEDICATIONS Documented in the chart. Please see the medications in the EMR. ALLERGIES SULFA SOCIAL HISTORY He does not smoke or drink. 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 He apparently is also homeless at times. PHYSICAL EXAMINATION VITAL SIGNS: Temperature 98, pulse is 100, blood pressure is 130/80, respiratory rate 20. GENERAL: This is a disheveled, thin gentleman who is wandering around his room and watching TV. He would not allow me to perform a physical exam. By gross inspection, he does have a macular rash diffusely all over his legs, arms and part of the chest that I could see. No active lesions that I can appreciate. There is no actively draining pus that I could appreciate. IMPRESSION 1. Longstanding rash. 2. Fever with elevated white count of undetermined etiology. 3. History of HIV 4. History of bipolar disorder and schizophrenia. PLAN At this point, the patient states he does not want any surgical procedures and does not want a skin biopsy performed. He states the rash has been there a long-time that he is "taking care of it". He also told me that I should not worry about it. He is declining any procedure and refused to sign consent. Nursing staff reports that they are obtain consent with medical authorization as the patient is not competent to make his own decisions. I advised them that once they had done this that we will see the patient back. The nursing staff also reports they plan on sedating him for any sort of procedure so that he is not combative. There is no pathology services available on the weekend and, therefore, a skin biopsy will not be performed over the weekend. Once we have appropriate consent and the patient can be controlled and with tolerate a surgical procedure, we will gladly return to perform the skin biopsy. This was discussed with Dr. Palacios and she is aware. MD MASON Palacios/ /9:26 PM /9:58 PM
[2017-08-05 05:18] VITALS: BP 137/86; PULSE 102; RESP 20; TEMP 97.6; O2SAT 99
[2017-08-05 05:26] LABS: HEMATOCRIT 39.2 % (39.0-51.0); HEMOGLOBIN 13.3 GM/DL (13.0-17.0); MEAN CELL VOLUME 85.6 FL (80.0-100.0); MEAN CORPUSCULAR HGB CONC 33.9 % (32.0-36.0); MEAN PLATELET VOLUME 8.3 FL (7.0-11.0); PLATELET COUNT 249 TH/MM3 (150-450); RED BLOOD COUNT 4.58 MIL/MM3 (4.50-5.90); RED CELL DISTRIBUTION WIDTH 13.8 % (11.6-17.2)
[2017-08-05 05:35] LABS: ALBUMIN 2.9 GM/DL (3.4-5.0); ALT (GPT) 505 U/L (12-78); AST (GOT) 347 U/L (15-37); BICARBONATE 31.8 MEQ/L (21.0-32.0); BLOOD UREA NITROGEN 11 MG/DL (7-18); CALCIUM 8.7 MG/DL (8.5-10.1); CHLORIDE 98 MEQ/L (98-107); CREATININE 0.83 MG/DL (0.60-1.30); GLOMERULAR FILTRATION RATE 95 ML/MIN (>89); GLUCOSE,RANDOM 95 MG/DL (74-106); SODIUM (NA) 135 MEQ/L (136-145)
[2017-08-05 05:38] LABS: ALKALINE PHOSPHATASE 394 U/L (45-117); TOTAL BILIRUBIN ADULT 0.8 MG/DL (0.2-1.0); TOTAL PROTEIN 5.4 GM/DL (6.4-8.2)
[2017-08-05 09:46] LABS: BANDS 1 % (0-6); LYMPHOCYTES 65 % (9-44); METAMYELOCYTES 1 % (0-1); MONOCYTES 6 % (0-8); NEUTROPHIL # MANUAL DIFF 5.6 TH/MM3 (1.8-7.7); POLYS (SEG NEUTROPHILS) 26 % (16-70)
[2017-08-05 09:47] LABS: OVALOCYTES 1+ (NORMAL); ROULEAUX PRESENT (NORMAL)
--- NOTE | 2017-08-05 09:56 | HHI.PR ---
Subjective Remarks The patient said that he will not have a skin biopsy done. Otherwise he said he felt excellent. He denied any abdominal pain. Discussed with nursing at the bedside. Objective Vitals Vital Signs Date Time Temp Pulse Resp B/P (MAP) Pulse Ox O2 Delivery O2 Flow Rate FiO2 08/05/17 05:18 97.6 102 20 137/86 (103) 99 08/04/17 17:00 98.0 114 18 128/78 (95) 99 I/O 08/04/17 08/04/17 08/04/17 08/05/17 08/05/17 08/05/17 07:00 15:00 23:00 07:00 15:00 23:00 Intake Total 960 ml 720 ml 2520 ml 960 ml 360 ml Balance 960 ml 720 ml 2520 ml 960 ml 360 ml Intake Oral 960 ml 720 ml 2520 ml 960 ml 360 ml # Voids 8 2 7 Result Diagram: 08/05/17 0427 08/05/17 0427 Imaging Last Impressions Liver Ultrasound 07/26/17 0000 Signed Impressions: Service Date/Time: July 16:09 - CONCLUSION: 1. Unremarkable abdominal ultrasound examination. Randall Patten MD Chest X-Ray 07/23/17 1850 Signed Impressions: Service Date/Time: Sunday, July 23, 2017 19:34 - CONCLUSION: Normal examination. Sherif Steel MD Head CT 06/20/17 0000 Signed Impressions: Service Date/Time: June 03:11 - CONCLUSION: 1. No acute hemorrhage or mass effect. 2. Areas of encephalomalacia in the left temporal and parietal lobes. 3. Mild to moderate atrophic change. Simone Wolf MD Renal Ultrasound 06/19/17 0000 Signed Impressions: Service Date/Time: Monday, June 19, 2017 16:47 - CONCLUSION: 1. Elevated velocities in the proximal and mid right renal artery. 2. Nonvisualization of the left mid renal artery with elevated velocity in the distal portion of the renal artery. 3. Echogenic kidneys characteristic of medical renal disease. There is no hydronephrosis. Simone Wolf MD Objective Remarks GENERAL: No distress. SKIN: Diffuse non-pruritic rash covering bilateral lower extremities, trunk, upper extremities. HEAD: Normocephalic. EYES: No scleral icterus. No injection or drainage. NECK: Supple, trachea midline. No JVD or lymphadenopathy. CARDIOVASCULAR: Tachycardic without murmurs, gallops, or rubs. RESPIRATORY: Breath sounds equal bilaterally. No accessory muscle use. GASTROINTESTINAL: Abdomen soft, non-tender, nondistended. MUSCULOSKELETAL: No cyanosis, or edema. BACK: Nontender without obvious deformity. No CVA tenderness. NEURO: No gross deficits. Procedures NONE Medications and IVs Current Medications Medications (Trade) Dose Ordered Sig/Zina Route Start Time Stop Time Status Last Admin (Ativan) 1 mg Q6H PRN PO 06/12/17 15:45 Future Hold 07/25/17 20:55 (Ativan Inj) 1 mg Q6H PRN IM 06/12/17 15:45 Future Hold (Tylenol) 650 mg Q4H PRN PO 06/12/17 15:45 Future Hold 07/23/17 18:04 (Milk Of Magnesia Liq) 30 ml DAILY PRN PO 06/12/17 15:45 Future Hold (Mag-Al Plus Susp Liq) 30 ml Q6H PRN PO 06/12/17 15:45 Future Hold (SEROquel) 600 mg HS PO 06/12/17 21:00 Future Hold 07/26/17 21:31 (Pill Splitter) 1 ea UNSCH PRN OTHER 06/12/17 16:30 Patient Own Medication PT OWN MED: ODEFSEY... DAILY PO 06/13/17 09:00 Future Hold Patient Own Medication PT OWN MED: CALCIUM CARBONA... BID PO 06/12/17 21:00 Future Hold (Catapres) 0.2 mg Q6H PRN PO 06/15/17 12:30 Future Hold 06/21/17 17:22 (Toprol Xl) 100 mg DAILY PO 06/16/17 09:00 Future Hold 07/26/17 10:47 (SEROquel) 100 mg BID@09,12 PO 06/18/17 12:00 Future Hold 07/26/17 12:00 (Procardia Xl) 90 mg DAILY PO 06/20/17 09:00 Future Hold 07/23/17 08:22 (Apresoline) 25 mg Q8HR PO 06/21/17 22:00 Future Hold 07/26/17 06:26 (Cogentin) 1 mg Q12H PRN PO 07/16/17 11:45 Future Hold (Cogentin Inj) 1 mg Q12H PRN IM 07/16/17 11:45 Future Hold (Prinivil) 5 mg DAILY PO 07/26/17 09:00 Future Hold 07/26/17 10:47 A/P Problem List: (1) Hypertension ICD Code: I10 - Essential (primary) hypertension Status: Chronic (2) HIV (human immunodeficiency virus infection) ICD Code: Z21 - Asymptomatic human immunodeficiency virus [HIV] infection status Status: Chronic (3) Viral rash ICD Code: B09 - Unspecified viral infection characterized by skin and mucous membrane lesions Assessment and Plan Febrile illness/ Diffuse non-pruritic rash in a patient with history of HIV PV B-19 negative, measles IgM negative, currently asymptomatic. Afebrile. Appreciate input from infectious disease specialist. The pt has lymphocytosis. - monitor off of antibiotics. Hold all medications at this time. - follow CBC. - work-up per ID in progress. - GS consulted for skin biopsy. Elevated LFTs Liver US unremarkable. LFTs increased but stable. Possibly s/t Seroquel. - trend LFTs. - hepatitis profile pending. - hold all meds for now. Hypertension Normotensive at the moment. Nephrology consult appreciated. Renal ultrasound showed: Elevated velocities in the proximal and mid right renal artery; Nonvisualization of the left mid renal artery with elevated velocity in the distal portion of the renal artery; Echogenic kidneys characteristic of medical renal disease. - The pt has been refusing meds. On hold as above. HIV Currently off HAART. - outpt follow-up. Bipolar disorder, schizophrenia Neuropsychology consult appreciated. - Managed by psychiatry team. DVT prophylaxis: ambulation Discharge Planning Per primary Problem Qualifiers (1) Hypertension: Qualified Codes: I10 - Essential (primary) hypertension Simone Jones DO Aug 05, 2017 09:56
--- NOTE | 2017-08-05 12:06 | HHI.PYPN ---
Subjective Remarks Patient was seen today for psychiatric reevaluation. Case was discussed with nurse in charge. The patient continues to be disorganized, very paranoid, oppositional and resistant, stating that "I and tried to cuadriculate everything in the system to figure out the situation". He has been consistently refusing medications. No agitation, no aggressive behavior reported. Review of Systems Psychiatric: COMPLAINS OF: Delusions Except as stated in HPI: all other systems reviewed are Neg Mental Status Examination Appearance: Appropriate, Other (noted with generalized rash) Consciousness: Alert Orientation: Person, Place (at least) Motor Activity: Normal gait, Other Speech: Unremarkable Language: Adequate Fund of Knowledge: Adequate Attention and Concentration: Inadequate Memory: Unremarkable Mood: Irritable (when speaking about medications) Affect: Blunt (with occasional smiling) Thought Process & Associations: Linear Thought Content: Bizarre thinking, Hallucinations, Delusional Hallucination Type: Auditory (denies today) Delusion Type: Bizarre, Paranoid (regarding medications), Other (rastafari) Suicidal Ideation: No Suicidal Plan: No Suicidal Intention: No Homicidal Ideation: No Homicidal Plan: No Homicidal Intention: No Insight: Poor Judgment: Poor Results Labs Test 08/05/17 04:27 White Blood Count 20.0 TH/MM3 Red Blood Count 4.58 MIL/MM3 Hemoglobin 13.3 GM/DL Hematocrit 39.2 % Mean Corpuscular Volume 85.6 FL Mean Corpuscular Hemoglobin 29.0 PG Mean Corpuscular Hemoglobin Concent 33.9 % Red Cell Distribution Width 13.8 % Platelet Count 249 TH/MM3 Mean Platelet Volume 8.3 FL CBC Comment AUTO DIFF Differential Total Cells Counted 100 Neutrophils % (Manual) 26 % Band Neutrophils % 1 % Lymphocytes % 65 % Monocytes % 6 % Eosinophils % 1 % Neutrophils # (Manual) 5.6 TH/MM3 Metamyelocytes 1 % Differential Comment FINAL DIFF MANUAL Platelet Estimate NORMAL Platelet Morphology Comment NORMAL Ovalocytes 1+ Rouleau PRESENT Blood Urea Nitrogen 11 MG/DL Creatinine 0.83 MG/DL Random Glucose 95 MG/DL Total Protein 5.4 GM/DL Albumin 2.9 GM/DL Calcium Level 8.7 MG/DL Alkaline Phosphatase 394 U/L Aspartate Amino Transf (AST/SGOT) 347 U/L Alanine Aminotransferase (ALT/SGPT) 505 U/L Total Bilirubin 0.8 MG/DL Sodium Level 135 MEQ/L Potassium Level 4.3 MEQ/L Chloride Level 98 MEQ/L Carbon Dioxide Level 31.8 MEQ/L Anion Gap 5 MEQ/L Estimat Glomerular Filtration Rate 95 ML/MIN Date/Time Source Procedure Growth Status 07/23/17 20:14 Blood Peripheral Aerobic Blood Culture - Final NO GROWTH IN 5 DAYS Complete 07/23/17 20:14 Anaerobic Blood Culture - Final Staphylococcus Epidermidis Complete Vitals/IOs Vital Signs Date Time Temp Pulse Resp B/P (MAP) Pulse Ox O2 Delivery O2 Flow Rate FiO2 08/05/17 05:18 97.6 102 20 137/86 (103) 99 Intake and Output 08/05/17 08/05/17 08/06/17 08:00 16:00 00:00 Intake Total 1320 ml Balance 1320 ml Assessment & Plan Problem List: (1) Psychotic disorder ICD Codes: F29 - Unspecified psychosis not due to a substance or known physiological condition Status: Acute Assessment & Plan: Tried to encourage the patient to take his medications. Brief supportive psychotherapy and the patient provided. Continue current psychotropics Assessment & Plan Estimated LOS: days Justification for Cont. Inpt. Patient is acutely psychotic, he needs to continue psychiatric hospitalization for stabilization Problem Qualifiers (1) Psychotic disorder: Qualified Codes: F23 - Brief psychotic disorder Leo Senior MD Aug 05, 2017 12:06
[2017-08-05 17:26] VITALS: BP 129/81; PULSE 126; RESP 18; TEMP 97.6; O2SAT 97
[2017-08-06 04:38] VITALS: BP 136/87; PULSE 18; RESP 18; TEMP 98.4; O2SAT 99
[2017-08-06 08:51] LABS: HEMATOCRIT 42.1 % (39.0-51.0); HEMOGLOBIN 13.9 GM/DL (13.0-17.0); MEAN CORPUSCULAR HEMOGLOBIN 28.7 PG (27.0-34.0); MEAN CORPUSCULAR HGB CONC 32.9 % (32.0-36.0); MEAN PLATELET VOLUME 8.4 FL (7.0-11.0); PLATELET COUNT 279 TH/MM3 (150-450); RED BLOOD COUNT 4.83 MIL/MM3 (4.50-5.90); RED CELL DISTRIBUTION WIDTH 13.8 % (11.6-17.2); WHITE BLOOD COUNT 28.6 TH/MM3 (4.0-11.0)
[2017-08-06 09:46] LABS: BANDS 3 % (0-6); LYMPHOCYTES 72 % (9-44); MONOCYTES 6 % (0-8); POLYS (SEG NEUTROPHILS) 18 % (16-70)
[2017-08-06 09:48] LABS: OVALOCYTES 1+ (NORMAL)
[2017-08-06 09:51] LABS: SMUDGE CELLS PRESENT PRESENT
[2017-08-06 10:18] LABS: AST (GOT) 239 U/L (15-37); BICARBONATE 29.2 MEQ/L (21.0-32.0); BLOOD UREA NITROGEN 12 MG/DL (7-18); CALCIUM 9.1 MG/DL (8.5-10.1); CHLORIDE 98 MEQ/L (98-107); CREATININE 1.01 MG/DL (0.60-1.30); GLOMERULAR FILTRATION RATE 76 ML/MIN (>89); GLUCOSE,RANDOM 125 MG/DL (74-106); SODIUM (NA) 133 MEQ/L (136-145)
[2017-08-06 10:20] LABS: ALT (GPT) 449 U/L (12-78)
[2017-08-06 10:22] LABS: ALKALINE PHOSPHATASE 394 U/L (45-117); TOTAL BILIRUBIN ADULT 0.7 MG/DL (0.2-1.0)
--- NOTE | 2017-08-06 11:03 | HHI.PR ---
Subjective Remarks refusing skin biopsy looks to be more paranoid as compared to when I last saw him on 07/23 denies itching c/o purplish discoloration of his bilateral feet and hands - denies association with going into cold water/temp does not want any meds- he thinks meds caused his skin lesions bp has been controlled off meds noted tremors on bilateral UE- pt reports due to aging Objective Vitals Vital Signs Date Time Temp Pulse Resp B/P (MAP) Pulse Ox O2 Delivery O2 Flow Rate FiO2 08/06/17 04:38 98.4 18 18 136/87 (103) 99 08/05/17 17:26 97.6 126 18 129/81 (97) 97 I/O 08/05/17 08/05/17 08/05/17 08/06/17 08/06/17 08/06/17 07:00 15:00 23:00 07:00 15:00 23:00 Intake Total 960 ml 1020 ml 480 ml 240 ml Balance 960 ml 1020 ml 480 ml 240 ml Intake Oral 960 ml 1020 ml 480 ml 240 ml # Voids 7 10 2 3 # Bowel Movements 0 0 Result Diagram: 08/06/17 0830 08/06/17 0830 Objective Remarks scaly, peeled of skin diffusely erythematous rash is significantly resolved as compared to 07/23 when it first started HR regular, no murmur lungs clear abdomen soft and nontender no calf asymmetry or edema strong bilateral dorsalis pedis pulse and radial pulse however bluish purplish discoloration of bilateral feet and hands Procedures NONE A/P Problem List: (1) Hypertension ICD Code: I10 - Essential (primary) hypertension Status: Chronic (2) HIV (human immunodeficiency virus infection) ICD Code: Z21 - Asymptomatic human immunodeficiency virus [HIV] infection status Status: Chronic (3) Viral rash ICD Code: B09 - Unspecified viral infection characterized by skin and mucous membrane lesions Status: Resolved Assessment and Plan Impression: Fever Generalized blanching erythema Possible viral exanthem pain HIV - patient on Odefsey 1 tab daily for HIV but has not received since this admission due to no availability at our hospital bipolar disorder/schizophrenia management per psychiatry. Hypertension- Elevated velocities in the proximal and mid right renal artery; Nonvisualization of the left mid renal artery with elevated velocity in the distal portion of the renal artery; Echogenic kidneys characteristic of medical renal disease. Hepatitis C Plan: observing off meds will montior bp monitor for tremors- medina drug withdrawal skin biopsy - would need consent from docs- general sx to be called back once this is arranged- would need sedation for biopsy ID and general sx notes reviewed Discharge Planning per clinical course and psychiatry team awaiting on placement as well per patient Problem Qualifiers (1) Hypertension: Qualified Codes: I10 - Essential (primary) hypertension Issac Solano MD Aug 06, 2017 11:03
[2017-08-06 12:12] LABS: HEPATITIS A AB IGM NEGATIVE (NEGATIVE); HEPATITIS B CORE AB IGM NEGATIVE (NEGATIVE)
--- NOTE | 2017-08-06 16:44 | HHI.PYPN ---
Subjective Remarks Patient seen for follow-up, chart reviewed. Discussion she staff reported the patient continues to refuse medications. Patient was found sitting in hospital bed noted to be calm but slightly irritable when speaking about medications. Patient states that his rash is improving and the Logan healed them. Discussion over skin biopsy was reviewed with patient who continues to refuse interventions or treatment. Patient states that he met with a senior care rental representative which she states was interested in placement at this time. Patient continues with sabianist delusions and preoccupations with continue auditory hallucinations. Review of Systems Except as stated in HPI: all other systems reviewed are Neg Mental Status Examination Appearance: Disheveled, Other (noted with generalized rash) Consciousness: Alert Orientation: Person, Place (at least) Motor Activity: Normal gait, Other Speech: Unremarkable Language: Adequate Fund of Knowledge: Adequate Attention and Concentration: Inadequate Memory: Unremarkable Mood: Irritable (when speaking about medications) Affect: Irritable Thought Process & Associations: Linear Thought Content: Bizarre thinking, Hallucinations, Delusional Hallucination Type: Auditory (denies today) Delusion Type: Bizarre, Paranoid (regarding medications), Other (sabianist) Suicidal Ideation: No Suicidal Plan: No Suicidal Intention: No Homicidal Ideation: No Homicidal Plan: No Homicidal Intention: No Insight: Poor Judgment: Poor Results Labs Labs reviewed Test 08/06/17 08:30 White Blood Count 28.6 TH/MM3 Red Blood Count 4.83 MIL/MM3 Hemoglobin 13.9 GM/DL Hematocrit 42.1 % Mean Corpuscular Volume 87.0 FL Mean Corpuscular Hemoglobin 28.7 PG Mean Corpuscular Hemoglobin Concent 32.9 % Red Cell Distribution Width 13.8 % Platelet Count 279 TH/MM3 Mean Platelet Volume 8.4 FL CBC Comment AUTO DIFF Differential Total Cells Counted 100 Neutrophils % (Manual) 18 % Band Neutrophils % 3 % Lymphocytes % 72 % Monocytes % 6 % Eosinophils % 1 % Neutrophils # (Manual) 6.0 TH/MM3 Differential Comment FINAL DIFF MANUAL Smudge Cells PRESENT Platelet Estimate NORMAL Platelet Morphology Comment NORMAL Ovalocytes 1+ Blood Urea Nitrogen 12 MG/DL Creatinine 1.01 MG/DL Random Glucose 125 MG/DL Total Protein 6.0 GM/DL Albumin 3.0 GM/DL Calcium Level 9.1 MG/DL Alkaline Phosphatase 394 U/L Aspartate Amino Transf (AST/SGOT) 239 U/L Alanine Aminotransferase (ALT/SGPT) 449 U/L Total Bilirubin 0.7 MG/DL Sodium Level 133 MEQ/L Potassium Level 4.5 MEQ/L Chloride Level 98 MEQ/L Carbon Dioxide Level 29.2 MEQ/L Anion Gap 6 MEQ/L Estimat Glomerular Filtration Rate 76 ML/MIN Date/Time Source Procedure Growth Status 07/23/17 20:14 Blood Peripheral Aerobic Blood Culture - Final NO GROWTH IN 5 DAYS Complete 07/23/17 20:14 Anaerobic Blood Culture - Final Staphylococcus Epidermidis Complete Vitals/IOs Vital Signs Date Time Temp Pulse Resp B/P (MAP) Pulse Ox O2 Delivery O2 Flow Rate FiO2 08/06/17 04:38 98.4 18 136/87 (103) 99 Intake and Output 08/06/17 08/06/17 08/07/17 08:00 16:00 00:00 Intake Total 240 ml 940 ml Balance 240 ml 940 ml Assessment & Plan Problem List: (1) Psychotic disorder ICD Codes: F29 - Unspecified psychosis not due to a substance or known physiological condition Status: Acute Assessment & Plan Patient this time continues to with persistence sabianist delusions and auditory hallucinations from these sabianist figures. Patient continues to refuse treatment believing the medication causes infection. Patient continues with elevated white count and workup to find etiology continues in progress. Patient has been refusing psychiatric medications in relation to his delusions and his belief that medications was cause for his rash as well as believing that Logan Silvino will cure him and therefore refuses all treatments. Will order Zyprexa 5 mg by mouth twice a day as well as obtain consent from patient' s brother to administer IM if patient refuses by mouth. Consulted with Hospitalist Dr. Solano regarding medical status and will confirm with Dr. Palacios regarding biopsy as consent will need to be obtained as patient refusing and at this time does not have capacity. Continue rest of medications. Discharge planning in progress. Justification for Cont. Inpt. At risk for further decompensation if at lower level of care Discharge Planning To senior care if acquired or state hospital Problem Qualifiers (1) Psychotic disorder: Qualified Codes: F23 - Brief psychotic disorder Jhoan Tabares MD Aug 06, 2017 16:44
[2017-08-06 18:00] VITALS: BP 120/75; PULSE 100; RESP 20; TEMP 98.9; O2SAT 100
[2017-08-06] MEDS: HALOPERIDOL LACTATE 5 MG/ML AMP IM SCH (21:00)
[2017-08-06] MEDS: HALOPERIDOL 5 MG TAB PO SCH (21:05)
[2017-08-07 05:53] VITALS: BP 123/74; PULSE 111; RESP 18; TEMP 97.2; O2SAT 98
[2017-08-07] MEDS: HALOPERIDOL 5 MG TAB PO SCH ×2 (08:38→21:20)
[2017-08-07] MEDS: HALOPERIDOL LACTATE 5 MG/ML AMP IM SCH ×2 (08:39→21:00)
--- NOTE | 2017-08-07 10:15 | HHI.PR ---
cc: Chris Hernandez MD Subjective Subjective Notes Delayed entry note ---patient seen on Aug 06 in the afternoon When asked about punch biopsy he responds "Heck no! I do not need that." Objective Vitals/I&O Vital Signs Date Time Temp Pulse Resp B/P (MAP) Pulse Ox O2 Delivery O2 Flow Rate FiO2 08/07/17 05:53 97.2 111 18 123/74 (90) 98 Labs Date/Time Source Procedure Growth Status 07/23/17 20:14 Blood Peripheral Aerobic Blood Culture - Final NO GROWTH IN 5 DAYS Complete 07/23/17 20:14 Anaerobic Blood Culture - Final Staphylococcus Epidermidis Complete Narrative Exam rash covering face, trunk, arms as best as I can see ---- unsure if rash extends to legs as patient will not allow a full physical exam A/P Assessment and Plan 61 year old male with bipolar and schizophrenia; non acute rash; punch biopsy has been requested -Patient refuses punch biopsy and is not able to provide consent at this time -General Surgery will be available should he change his mind. Luz Maria Julian Aug 07, 2017 10:15
--- NOTE | 2017-08-07 10:41 | HHI.PR ---
Subjective Remarks no complaints looks much better than yesterday haldol was started and he seems to do better with it, adn he is agreeable to it as well Objective Vitals Vital Signs Date Time Temp Pulse Resp B/P (MAP) Pulse Ox O2 Delivery O2 Flow Rate FiO2 08/07/17 05:53 97.2 111 18 123/74 (90) 98 08/06/17 18:00 98.9 100 20 120/75 (90) 100 I/O 08/06/17 08/06/17 08/06/17 08/07/17 08/07/17 08/07/17 06:59 14:59 22:59 06:59 14:59 22:59 Intake Total 1180 ml 480 ml 960 ml 240 ml Balance 1180 ml 480 ml 960 ml 240 ml Intake Oral 1180 ml 480 ml 960 ml 240 ml # Voids 3 5 4 # Bowel Movements 0 Result Diagram: 08/06/17 0830 08/06/17 0830 Objective Remarks scaly, peeled of skin diffusely erythematous rash is significantly resolved as compared to 07/23 when it first started HR regular, tachycardic, no murmur lungs clear abdomen soft and nontender no calf asymmetry or edema strong bilateral dorsalis pedis pulse and radial pulse however bluish purplish discoloration of bilateral feet and hands Procedures NONE A/P Problem List: (1) Hypertension ICD Code: I10 - Essential (primary) hypertension Status: Chronic (2) HIV (human immunodeficiency virus infection) ICD Code: Z21 - Asymptomatic human immunodeficiency virus [HIV] infection status Status: Chronic (3) Viral rash ICD Code: B09 - Unspecified viral infection characterized by skin and mucous membrane lesions Status: Resolved Assessment and Plan Impression: Fever Generalized blanching erythema Possible viral exanthem pain HIV - patient on Odefsey 1 tab daily for HIV but has not received since this admission due to no availability at our hospital bipolar disorder/schizophrenia management per psychiatry. Hypertension- Elevated velocities in the proximal and mid right renal artery; Nonvisualization of the left mid renal artery with elevated velocity in the distal portion of the renal artery; Echogenic kidneys characteristic of medical renal disease. Hepatitis C Plan: haldol restarted, pt seems much improved psychiatrically as compared to yesterday will montior bp monitor for tremors- medina drug withdrawal skin biopsy - discussed with ID, advised no need of biopsy since skin lesions are improved- advised on hematology consult for flow cytometry re leukocytosis will follow up dvt prophylaxis with ambulation Discharge Planning per clinical course and psychiatry team awaiting on placement as well per patient Problem Qualifiers (1) Hypertension: Qualified Codes: I10 - Essential (primary) hypertension Issac Solano MD Aug 07, 2017 10:41
--- NOTE | 2017-08-07 10:57 | HHI.PYPN ---
Subjective Remarks Patient seen for follow-up, chart review. Discussion she staff reported the patient now compliant with medications specifically Haldol, continues to be noted to be irritable. Patient was found sitting in hospital bed, cooperative slightly less irritable today. Patient states that he slept well after taking his medication last evening. He agrees to continue this medication for now, patient reports eating and drinking well that his mood has been "excellent". Patient continues to have "endless conversations" with his site safety coordinator in his left ear and "fireball" as well as Satan in his right foot. Patient noted to continue with latter-day preoccupation and delusions as well as auditory hallucinations. Review of Systems Except as stated in HPI: all other systems reviewed are Neg Mental Status Examination Appearance: Disheveled, Other (noted with generalized rash) Consciousness: Alert Orientation: Person, Place (at least) Motor Activity: Normal gait, Other Speech: Unremarkable Language: Adequate Fund of Knowledge: Adequate Attention and Concentration: Inadequate Memory: Unremarkable Mood: Irritable (when speaking about medications) Affect: Irritable (less so today) Thought Process & Associations: Linear Thought Content: Bizarre thinking, Hallucinations, Delusional Hallucination Type: Auditory (denies today) Delusion Type: Bizarre, Paranoid (regarding medications), Other (latter-day) Suicidal Ideation: No Suicidal Plan: No Suicidal Intention: No Homicidal Ideation: No Homicidal Plan: No Homicidal Intention: No Insight: Poor Judgment: Poor Results Labs Date/Time Source Procedure Growth Status 07/23/17 20:14 Blood Peripheral Aerobic Blood Culture - Final NO GROWTH IN 5 DAYS Complete 07/23/17 20:14 Anaerobic Blood Culture - Final Staphylococcus Epidermidis Complete Vitals/IOs Vital Signs Date Time Temp Pulse Resp B/P (MAP) Pulse Ox O2 Delivery O2 Flow Rate FiO2 08/07/17 05:53 97.2 111 18 123/74 (90) 98 Intake and Output 08/07/17 08/07/17 08/08/17 08:00 16:00 00:00 Intake Total 240 ml 240 ml Balance 240 ml 240 ml Assessment & Plan Problem List: (1) Psychotic disorder ICD Codes: F29 - Unspecified psychosis not due to a substance or known physiological condition Status: Acute Assessment & Plan Patient noted to be less irritable, continues with latter-day delusions and auditory hallucinations for the same. Patient now compliant with antipsychotic regimen specifically Haldol. Continue with current treatment regimen. Plan to have patient have skin biopsy discussed with hospitalist will confer with infectious disease cardiology clinical consultant regarding this. Continue current treatment. Continue her medications as per primary medical team. Discharge planning in progress Justification for Cont. Inpt. At risk for further decompensation if at lower level of care Discharge Planning To be determined. Problem Qualifiers (1) Psychotic disorder: Qualified Codes: F23 - Brief psychotic disorder Jhoan Tabares MD Aug 07, 2017 10:57
--- NOTE | 2017-08-07 11:53 | HHI.IDPN ---
Subjective Subjective Remarks Peeling, rash improving Afebrile since Jul 30 Lymphs going up > 20 K today Feels good refuses skin bx Antibiotics none Allergies: Coded Allergies: Sulfa (Sulfonamide Antibiotics) (Unverified Allergy, Severe, Hives, ) Objective . Vital Signs Date Time Temp Pulse Resp B/P (MAP) Pulse Ox O2 Delivery O2 Flow Rate FiO2 08/07/17 05:53 97.2 111 18 123/74 (90) 98 08/06/17 18:00 98.9 100 20 120/75 (90) 100 08/07/17 08/07/17 08/08/17 15:00 23:00 07:00 Intake Total 240 ml Balance 240 ml Intake Oral 240 ml . Laboratory Tests Test 08/06/17 08:30 White Blood Count 28.6 TH/MM3 Red Blood Count 4.83 MIL/MM3 Hemoglobin 13.9 GM/DL Hematocrit 42.1 % Mean Corpuscular Volume 87.0 FL Mean Corpuscular Hemoglobin 28.7 PG Mean Corpuscular Hemoglobin Concent 32.9 % Red Cell Distribution Width 13.8 % Platelet Count 279 TH/MM3 Mean Platelet Volume 8.4 FL CBC Comment AUTO DIFF Differential Total Cells Counted 100 Neutrophils % (Manual) 18 % Band Neutrophils % 3 % Lymphocytes % 72 % Monocytes % 6 % Eosinophils % 1 % Neutrophils # (Manual) 6.0 TH/MM3 Differential Comment FINAL DIFF MANUAL Smudge Cells PRESENT Platelet Estimate NORMAL Platelet Morphology Comment NORMAL Ovalocytes 1+ Laboratory Tests Test 08/06/17 08:30 Blood Urea Nitrogen 12 MG/DL Creatinine 1.01 MG/DL Random Glucose 125 MG/DL Total Protein 6.0 GM/DL Albumin 3.0 GM/DL Calcium Level 9.1 MG/DL Alkaline Phosphatase 394 U/L Aspartate Amino Transf (AST/SGOT) 239 U/L Alanine Aminotransferase (ALT/SGPT) 449 U/L Total Bilirubin 0.7 MG/DL Sodium Level 133 MEQ/L Potassium Level 4.5 MEQ/L Chloride Level 98 MEQ/L Carbon Dioxide Level 29.2 MEQ/L Anion Gap 6 MEQ/L Estimat Glomerular Filtration Rate 76 ML/MIN Imaging Last Impressions Liver Ultrasound 07/26/17 0000 Signed Impressions: Service Date/Time: July 16:09 - CONCLUSION: 1. Unremarkable abdominal ultrasound examination. Randall Patten MD Chest X-Ray 07/23/17 1850 Signed Impressions: Service Date/Time: Sunday, July 23, 2017 19:34 - CONCLUSION: Normal examination. Sherif Steel MD Head CT 06/20/17 0000 Signed Impressions: Service Date/Time: June 03:11 - CONCLUSION: 1. No acute hemorrhage or mass effect. 2. Areas of encephalomalacia in the left temporal and parietal lobes. 3. Mild to moderate atrophic change. Simone Wolf MD Renal Ultrasound 06/19/17 0000 Signed Impressions: Service Date/Time: Monday, June 19, 2017 16:47 - CONCLUSION: 1. Elevated velocities in the proximal and mid right renal artery. 2. Nonvisualization of the left mid renal artery with elevated velocity in the distal portion of the renal artery. 3. Echogenic kidneys characteristic of medical renal disease. There is no hydronephrosis. Simone Wolf MD Physical Exam CONSTITUTIONAL/GENERAL: This is an adequately nourished patient, in no apparent distress. Pt appears well TUBES/LINES/DRAINS: SKIN: No jaundice, , or lesions Diffusewith peeling Persistent but less prominent violacious discoloration of BLE elsewhere erytherodermia appears to resolve EYES: Pupils equal and round and reactive. Extraocular motions intact. + coryza present ENT: Hearing grossly normal. Nose without bleeding or purulent drainage. Throat without visible erythema, exudates, masses, or lesions. No enanthema noted CARDIOVASCULAR: Regular rate and rhythm without murmurs, gallops, or rubs. No JVD. Peripheral pulses symmetric. RESPIRATORY/CHEST: Symmetric, unlabored respirations. Clear to auscultation. Breath sounds equal bilaterally. No wheezes, rales, or rhonchi. GASTROINTESTINAL: Abdomen soft, non-tender, nondistended. Tatum negative No hepato-splenomegaly, or palpable masses. No guarding. Bowel sounds present. MUSCULOSKELETAL: Extremities without clubbing, cyanosis, or edema. No joint tenderness or effusion noted. No calf tenderness. No mottling or clubbing. NEUROLOGICAL: Awake and alert. Motor and sensory grossly within normal limits. Follows commands. Clear speech . Moves all extremities. PSYCHIATRIC: No obvious anxiety/depression. no apparent hallucinations or other psychotic thought process. Assessment & Plan Remarks Worsenig marked lymphacytosis: its > 20 K now HIV disease with CD4 > 400, off HAART Fever with dermitis and hepatitis, subacute - fever and rash and transaminitis appea to resolve Measele, parvo and EBV serologies not cw culprit Low grade Staph epi bactremia, favouring contaminantion Leukocytosis exclusively 2/2 lymphocytosis Neutrophils are WNL cancell skin bx: rash resolving and pt is refusing anyway Consult hem-onc for lymphocytosis avoid abx and hold medications dw Jammie Silva MD Aug 07, 2017 11:53
--- NOTE | 2017-08-07 17:40 | EKG ---
Date Performed: 08/06/2017 Time Performed: 17:01:34 PTAGE: 61 years EKG: Sinus rhythm NORMAL ECG PREVIOUS TRACING : 06/13/2017 08.16 DOCTOR: Sendy Johnston Interpretating Date/Time 08/07/2017 17:33:49
[2017-08-07 18:13] VITALS: BP_SYST 123; BP_SYST 135; BP_DIAS 74; BP_DIAS 92; PULSE 111; PULSE 116; RESP 18; TEMP 97.2; TEMP 98.7; O2SAT 96; O2SAT 98
[2017-08-08 06:00] VITALS: BP 121/73; PULSE 112; RESP 18; TEMP 97.4
--- NOTE | 2017-08-08 06:09 | MB ---
cc: VIK PALMER DATE OF CONSULTATION August 07, 2017 REASON FOR CONSULTATION Patient with history of HIV who has lymphocytosis. HISTORY OF PRESENT ILLNESS This is a 61-year-old male who has a history of bipolar disorder and schizophrenia and history of HIV who is currently off his HAART therapy. He is currently in the psychiatric unit. This patient has been having hallucinations and psychosis. He has developed a febrile illness with an unexplained rash and is currently being evaluated by Infectious Disease. According to the infectious disease notes, the patient's CD4 count was greater than 400. He has been found to have lymphocytosis and hematology has been consulted to make further recommendations. Upon my evaluation today, the patient was awake and alert. He is a poor historian. He told me that he used to see Dr. Poon but he is not going back there again because, "Dr Poon has a plan to treat his HIV infection forever." He states that he does not need any more HIV treatment. He states that he was treated for HIV for more than 17 years. The patient was having tangential speech. He stated that, "I am fine." He also stated that he would not like to have any kind of workup done. He stated that he would never want to get back on receiving HIV therapy. He says that he had dry skin which is getting better. He denies having any fevers or chills. No night sweats. No nose bleeds or gum bleeds, no petechiae. REVIEW OF SYSTEMS A comprehensive review of systems was completed. However, it was difficult to obtain any history because the patient is a poor historian due to his mental illness. PAST MEDICAL HISTORY 1. HIV. 2. Bipolar disorder. 3. History of hepatitis C. 4. Absent temporal lobe syndrome. 5. History of cannabis use. 6. History of psychosis. PAST SURGICAL HISTORY None. FAMILY HISTORY Was unable to be obtained. SOCIAL HISTORY Based on the medical records, he was homeless. Unable to be obtained due to his mental status. MEDICATIONS Reviewed in the EMR. He is currently receiving Haloperidol 5 mg p.o. b.i.d. ALLERGIES SULFA DRUGS. PHYSICAL EXAMINATION VITAL SIGNS: Blood pressure is 135/92, pulse is in the 90s, temperature is 98.7, O2 sats are 96%. GENERAL: Disheveled male in no apparent distress. He is alert and oriented. HEENT: Pupils are equal, round, react to light. EOMI. No oral thrush. No oral lesions. NECK: Supple. No JVD, no bruits. No lymphadenopathy. CHEST: Clear to auscultation bilaterally. CARDIAC: S1-S2. Regular rate and rhythm. ABDOMEN: Soft, nontender, nondistended. Bowel sounds are present. EXTREMITIES: Edematous. He has blanching erythema. LABORATORY DATA WBC 28.6, hemoglobin is 13.9, platelet count is 2079. Lymphocyte percentage is increased to 72%. Sodium 133, potassium 4.5, chloride 98, CO2 is 29.2, anion gap is 6, BUN is 12, creatinine is 1.01, GFR is 76, AST is 239, ALT is 449, alk phos is 394, total protein is 6, albumin is 3. Hep C antibody is positive. IMAGING STUDIES Reviewed in the EMR. Liver ultrasound is unremarkable. CT of the head did not show any acute hemorrhage or mass effect. Encephalomalacia was seen in the left temporal and parietal lobes. Renal ultrasound shows an elevated velocities in the proximal and mid-right renal artery. Vasogenic kidneys characteristic of medical renal disease. ASSESSMENT AND PLAN This is a 61-year-old male who has a history of HIV, bipolar disorder, schizophrenia who is currently in the psychiatric unit. He had developed fever and an unexplained rash. He is currently being seen by Infectious Disease. I have been consulted to make recommendations regarding his lymphocytosis. Leukocytosis with a white blood cell count of 28.6 with increase in lymphocyte percentage of 72%. His absolute CD-8 count is elevated to 17,752. Absolute lymphocyte count is 20,383. His CD-4 count is 400. The differential for a lymphocytosis includes underlying reactive process from infection such as HIV and viral hepatitis from hep C. Infectious mononucleosis can also cause lymphocytosis; however, it is less likely that the lymphocytosis is caused by infectious mononucleosis. Patients with HIV can have elevated lymphocyte counts due to persistent circulating CD-8 positive, lymphocytes. There is sometimes oligoclonal expansion of CD-8 lymphocytes in patients with HIV. There is also a possibility of underlying lymphoproliferative disorder such as CLL. However, this appears to be less likely. We will review her peripheral smear. In order to check the clonality of lymphocytes, we will obtain a flow cytometry. If this is found to be on polyclonal process, then it is most likely reactive from underlying HIV or hepatitis C. If this patient is found to have underlying lymphoproliferative disorder such as CLL, treatment is not indicated at this time. It would also be very difficult and to treat this patient for any underlying malignancy due to lack of his ability to give consent. I will make further recommendations based on the review of peripheral smear and the results of flow cytometry. I would also recommend obtaining a CT scan of the chest, abdomen and pelvis due to evaluate for any underlying lymphadenopathy. Thank you for allowing me to participate in the care of this patient. I will continue to follow this patient along. MD LENORE Hernandez/CASPER /12:18 AM /5:39 AM
[2017-08-08] MEDS: HALOPERIDOL LACTATE 5 MG/ML AMP IM SCH ×2 (09:00→21:00)
[2017-08-08] MEDS: HALOPERIDOL 5 MG TAB PO SCH (09:00)
--- NOTE | 2017-08-08 11:05 | HHI.PR ---
Subjective Remarks very pleasant today explained him of oncology recommendations regarding CT and flow cytometry he is agreeable to that he however admantly does not think that his skin lesions were due to his hiv and hep c sequale denies any overnight issues- somewhat diaphoretic, but also had his room at high heat with no shirt on - as always Objective Vitals Vital Signs Date Time Temp Pulse Resp B/P (MAP) Pulse Ox O2 Delivery O2 Flow Rate FiO2 08/08/17 06:00 97.4 112 18 121/73 (89) 08/07/17 18:13 98.7 116 18 135/92 (106) 96 I/O 08/07/17 08/07/17 08/07/17 08/08/17 08/08/17 08/08/17 07:00 15:00 23:00 07:00 15:00 23:00 Intake Total 960 ml 1200 ml 240 ml 240 ml 240 ml Balance 960 ml 1200 ml 240 ml 240 ml 240 ml Intake Oral 960 ml 1200 ml 240 ml 240 ml 240 ml # Voids 4 2 2 2 Result Diagram: 08/06/17 0830 08/06/17 0830 Objective Remarks scaly, peeled of skin diffusely erythematous rash is significantly resolved as compared to 07/23 when it first started HR regular, no murmur lungs clear abdomen soft and nontender no calf asymmetry or edema strong bilateral dorsalis pedis pulse and radial pulse however bluish purplish discoloration of bilateral feet and hands Procedures NONE A/P Problem List: (1) Hypertension ICD Code: I10 - Essential (primary) hypertension Status: Chronic (2) HIV (human immunodeficiency virus infection) ICD Code: Z21 - Asymptomatic human immunodeficiency virus [HIV] infection status Status: Chronic (3) Viral rash ICD Code: B09 - Unspecified viral infection characterized by skin and mucous membrane lesions Status: Resolved Assessment and Plan Impression: Fever- resolved - workup was negative, thought to be viral Generalized blanching erythema- significantly improved with now scaly dry skin diffusely, and bilateral feet and hands with purplish discoloration Possible viral exantheme HIV - patient on Odefsey 1 tab daily for HIV but has not received since this admission due to no availability at our hospital bipolar disorder/schizophrenia management per psychiatry. Hypertension- Elevated velocities in the proximal and mid right renal artery; Nonvisualization of the left mid renal artery with elevated velocity in the distal portion of the renal artery; Echogenic kidneys characteristic of medical renal disease. Hepatitis C Plan: haldol restarted on 08/06/17, pt seems much improved psychiatrically since then, back to how he was on 07/23/17 when I saw him will montior bp monitor for tremors- medina drug withdrawal skin biopsy - discussed with ID yesterday, no longer needed Hematology was consulted for leukocytosis, need of flow cytometry. Recs noted, planned for CT, flow cytometry today, pt agrees ID and general sx notes reviewed tachycardia is chronic DVT prophylaxis with ambulation Discharge Planning per clinical course and psychiatry team awaiting on placement as well per patient Problem Qualifiers (1) Hypertension: Qualified Codes: I10 - Essential (primary) hypertension Issac Solano MD Aug 08, 2017 11:05
--- NOTE | 2017-08-08 14:26 | PD.ONC.PN ---
Subjective Subjective Remarks Afebrile overnight. Patient resting in room in nad. No complaints. Ok with obtaining CT chest abdomen and pelvis, "as long as I don't have too many other tests today." Objective Data Date Time Temp Pulse Resp B/P (MAP) Pulse Ox O2 Delivery O2 Flow Rate FiO2 08/08/17 06:00 97.4 112 18 121/73 (89) 08/07/17 18:13 98.7 116 18 135/92 (106) 96 08/08/17 08/08/17 08/08/17 07:00 15:00 23:00 Intake Total 240 ml 480 ml Balance 240 ml 480 ml Result Diagram: 08/06/17 0830 08/06/17 0830 Administered Medications Medications (Trade) Dose Ordered Sig/Zina Route PRN Reason Start Time Stop Time Status Last Admin Dose Admin Lorazepam (Ativan) 1 mg Q6H PRN PO MODERATE TO SEVERE ANXIETY 06/12/17 15:45 Future Hold 07/25/17 20:55 Acetaminophen (Tylenol) 650 mg Q4H PRN PO Pain 1-5 or Temp >101F 06/12/17 15:45 Future Hold 07/23/17 18:04 Clonidine (Catapres) 0.2 mg Q6H PRN PO SBP>160, DBP>90 06/15/17 12:30 Future Hold 06/21/17 17:22 Metoprolol Succinate (Toprol Xl) 100 mg DAILY PO 06/16/17 09:00 Future Hold 07/26/17 10:47 Nifedipine (Procardia Xl) 90 mg DAILY PO 06/20/17 09:00 Future Hold 07/23/17 08:22 Hydralazine HCl (Apresoline) 25 mg Q8HR PO 06/21/17 22:00 Future Hold 07/26/17 06:26 Lisinopril (Prinivil) 5 mg DAILY PO 07/26/17 09:00 Future Hold 07/26/17 10:47 Objective Remarks GENERAL: Calm, somewhat disheveled middle aged male, sitting up in bed in nad. SKIN: Warm and dry. HEAD: Atraumatic. Normocephalic. ENT: No nasal bleeding or discharge. NECK: Trachea midline. LYMPH: no cervical or axillary lymphadenopathy palpated. CARDIOVASCULAR: Regular rate and rhythm. RESPIRATORY: Clear to auscultation. GASTROINTESTINAL: Abdomen soft, non-tender MUSCULOSKELETAL: Extremities without clubbing NEUROLOGICAL: Awake, answering questions appropriately. Assessment/Plan Problem List: (1) Lymphocytosis ICD Codes: D72.820 - Lymphocytosis (symptomatic) Plan: --differential includes underlying reactive process from infection such as HIV and viral hepatitis from hep C vs underlying lymphoproliferative disorder such as CLL (less likely) --will obtain peripheral smear, flow cytometry, CT of chest abdomen and pelvis. (2) HIV (human immunodeficiency virus infection) ICD Codes: Z21 - Asymptomatic human immunodeficiency virus [HIV] infection status Status: Chronic (3) Viral rash ICD Codes: B09 - Unspecified viral infection characterized by skin and mucous membrane lesions Status: Resolved Assessment 61y/o male admitted to med/psych with psychosis. Oncology consulted for lymphocytosis. history of bipolar disorder and schizophrenia history of HIV who is currently off his HAART therapy. absent temporal lobe syndrome. history of cannabis use. Plan 1. obtain peripheral smear, flow cytometry, CT of chest abdomen and pelvis. 2. monitor CBC Attending Statement The exam, history, and the medical decision-making described in the above note were completed with the assistance of the mid-level provider. I reviewed and agree with the findings presented. I attest that I had a [id number] encounter with the patient on the same day, and personally performed and documented my assessment and findings in the medical record. f/u on CT scans/ and flow cytometry Leila Sierra Aug 08, 2017 14:26 Dusty Mattson MD Aug 08, 2017 21:32
[2017-08-08] MEDS ORDERED: DIATRIZOATE MEGLUM/DIATRIZOATE SOD 9 ML CUP PO ONE (14:30)
--- NOTE | 2017-08-08 14:34 | PD.TTN ---
Patient Problems 1. Discharge planning 2. Medication compliance 3. Knowledge deficit 4. Lack of coping skills Progress Toward Goals Provider Present: Dr. Master Cole, Dr. Binu Tabares Provider Input: 08/08 patient is now taking his psychotropic meds but no medical meds - he is not medically cleared and is still awaiting on medical work up results 07/31/17 patient is now refusing all meds and treatment 07/23/2017 - Dr. Tabares reports the patient remains compliant with medications and without behavoral disturbance. 07/18/2017 - Patient remains a placement issue, compliant with medications, and without behavioral disturbance. 07/02/17 Patient remains psychotic and delusional. 06/27/2017 Patient will require placement in an Assisted Living Facility. He has a histroy of TBI, and fixed delusions that are scientology nature. 06/20/2017; patient is at the highest dosage of medication and might need to have an additional med added to level off his mood/behavior. Patient is new to unit and will be starting on a medication regiment. Will monitor progress of patient throughout the week. 06/18/2017 - Dr. Tabares reports the patient would like placement in an [facility]. 06/25 - Patient will continue to be looked for in regards to placement. Not behavioral issues on the unit. 07/04/17 Patient continues to meet criteria. Patient has court tomorrow Nurse(s) Present: TONY Lara Nurse(s) Input: 06/20/2017; Patient is taking his medication, eating meals; however patient displays manic behavior, up doing the night hours with limited sleep. 06/25 patient is noted to have no behavioral issues on the unit and has been compliant with medications. denies side effects 07/04/17 Patient's nurse Sara reports patient is religioulsy preoccupied, continues to practice ballet exercies. Medication compliant. Patient is calm and cooperative. Psychiatric Counselors Present: Jenny Schroeder LCSW, Marbella Britton, [facility], Simin Trejo, [facility], Linda Chandler, [facility] Psych Therapist Input: 08/08 patient is referred for [facility] but may be able to go to a placement if one is suitable and able to meet needs 07/31/17 patient is delusional and medically not stable 07/23/2017 - Patient remains pleasant, religiously preoccupied, and delusional. 07/18/2017 - Counselor reported that the patient remains delusional and religiously preoccupied. Patient's packet [facility]. 07/02/17 Patient remains medication compliant and continues to isolate. He does not saocialize with peers or staff. 06/27/2017 Counselor will continue to search for approparit placement for this patient, 06/20/2017 Counselor will begin the process for finding appropriate placement Counselor will be in contact with family memebers to recieve collateral information in regards to patient's progress. 06-18-2017 - Counselor has [facility]. Counselor called [facility] and there are no beds available at this time. 06/25 patient is cooperative and calm on the unit and counselor will look for placement. Patient does not socialize with peers but is pleasant. 07/04/17 Patient is medication compliant. Patient presents calm, cooperative, affect appropriate. patient's speech is clear, and organized. Patient does present religiously preoccupied. Patient isolates, on unit Group Spec/RT/OT/SCHMIDT Present: Bel Velázquez, GPS, BRAYAN Restrepo, Kane Solis, OT, BRAYAN Silva Group Spec/RT/OT/SCHMIDT Input: 08/08 patient is not attending groups and not medically cleared and on contact precautions 07/1617 does not attend 07/23/2017 - Patient refuses to attend groups. 07/18/2017 - Patient refuses to attend groups. 07/02/17 Patient isolates to his room and the only group he has attended so far is coffee shop. 06/27/2017 Patient refuses most groups, although he will occasionally attemd fresh air and snack time. 06/20/2017: Attends most groups, very cooperate, very hyperverbal Patient is new to unit and has not attend groups yet. 06-18-2017 - Patient attends select groups and his behavior is appropriate. 07/04/17 Patient attends exercise occasionally Discharge Plan SMA Patient will be discharged to an appropriate [facility] when accepted. Documentation Scribe: Simin Trejo [facility] Date Resolved: Jul 23, 2017 Jenny SchroederW Aug 08, 2017 14:34
--- NOTE | 2017-08-08 16:48 | HHI.PYPN ---
Subjective Remarks Patient seen for follow-up, chart reviewed. Discussion she staff reported the patient noncompliant with medications specifically Haldol, rash is improving, patient no longer on contact precautions. Patient was found sitting in hospital bed noted to be more engaging in interview less irritable. Patient states that he slept well, no problems with eating or drinking, his mood being "excellent" stated having exercised today and stated feeling habitus morning. Patient agrees to continue antipsychotic medications. Patient continues with anabaptist preoccupation and delusions as well as auditory hallucinations from the same. Review of Systems Except as stated in HPI: all other systems reviewed are Neg Mental Status Examination Appearance: Disheveled, Other (noted with generalized rash) Consciousness: Alert Orientation: Person, Place (at least) Motor Activity: Normal gait, Other Speech: Unremarkable Language: Adequate Fund of Knowledge: Adequate Attention and Concentration: Inadequate Memory: Unremarkable Mood: Appropriate Affect: Appropriate Thought Process & Associations: Linear Thought Content: Bizarre thinking, Hallucinations, Delusional Hallucination Type: Auditory (denies today) Delusion Type: Bizarre, Paranoid (regarding medications), Other (anabaptist) Suicidal Ideation: No Suicidal Plan: No Suicidal Intention: No Homicidal Ideation: No Homicidal Plan: No Homicidal Intention: No Insight: Poor Judgment: Poor Results Labs Date/Time Source Procedure Growth Status 07/23/17 20:14 Blood Peripheral Aerobic Blood Culture - Final NO GROWTH IN 5 DAYS Complete 07/23/17 20:14 Anaerobic Blood Culture - Final Staphylococcus Epidermidis Complete Vitals/IOs Vital Signs Date Time Temp Pulse Resp B/P (MAP) Pulse Ox O2 Delivery O2 Flow Rate FiO2 08/08/17 06:00 97.4 112 18 121/73 (89) 08/07/17 18:13 96 Intake and Output 08/08/17 08/08/17 08/09/17 08:00 16:00 00:00 Intake Total 240 ml 480 ml Balance 240 ml 480 ml Assessment & Plan Problem List: (1) Psychotic disorder ICD Codes: F29 - Unspecified psychosis not due to a substance or known physiological condition Status: Acute Assessment & Plan Patient with a mood noted to be less irritable but continues with paranoid and anabaptist delusions along with auditory hallucinations from his anabaptist figures. Patient continued to be followed medical team. Rashes improving patient, no longer on contact precautions. We'll increase Haldol to 5 mg a.m. and 10 mg at bedtime for psychosis. Continue recommendations as per primary medical team. Discharge planning in progress Justification for Cont. Inpt. At risk for further decompensation if at lower level of care Discharge Planning To be determined, patient referred for state hospitalization Problem Qualifiers (1) Psychotic disorder: Qualified Codes: F23 - Brief psychotic disorder Jhoan Tabares MD Aug 08, 2017 16:48
[2017-08-08 18:21] VITALS: BP 139/85; PULSE 112; RESP 20; TEMP 98.8; O2SAT 98
[2017-08-08 19:30] LABS: HEMATOCRIT 38.6 % (39.0-51.0); HEMOGLOBIN 12.9 GM/DL (13.0-17.0); MEAN CELL VOLUME 86.2 FL (80.0-100.0); MEAN CORPUSCULAR HEMOGLOBIN 28.9 PG (27.0-34.0); MEAN CORPUSCULAR HGB CONC 33.5 % (32.0-36.0); MEAN PLATELET VOLUME 8.4 FL (7.0-11.0); PLATELET COUNT 289 TH/MM3 (150-450); RED BLOOD COUNT 4.47 MIL/MM3 (4.50-5.90); RED CELL DISTRIBUTION WIDTH 14.1 % (11.6-17.2); WHITE BLOOD COUNT 27.4 TH/MM3 (4.0-11.0)
[2017-08-08 19:52] LABS: ALBUMIN 2.9 GM/DL (3.4-5.0); AST (GOT) 86 U/L (15-37); BICARBONATE 31.6 MEQ/L (21.0-32.0); BLOOD UREA NITROGEN 13 MG/DL (7-18); CALCIUM 8.8 MG/DL (8.5-10.1); CHLORIDE 99 MEQ/L (98-107); CREATININE 0.84 MG/DL (0.60-1.30); GLOMERULAR FILTRATION RATE 94 ML/MIN (>89); GLUCOSE,RANDOM 101 MG/DL (74-106); SODIUM (NA) 134 MEQ/L (136-145)
[2017-08-08 19:53] LABS: ALT (GPT) 215 U/L (12-78)
[2017-08-08 19:55] LABS: ALKALINE PHOSPHATASE 349 U/L (45-117); TOTAL BILIRUBIN ADULT 0.5 MG/DL (0.2-1.0); TOTAL PROTEIN 5.7 GM/DL (6.4-8.2)
[2017-08-08] MEDS ORDERED: IOHEXOL 350 MG/ML 10 ML VIAL (for RAD DIAG) IVCONTRAST ONE (20:25)
[2017-08-08] MEDS ORDERED: HALOPERIDOL 10 MG TAB PO SCH (21:00)
[2017-08-08 21:45] LABS: BASOPHILS 1 % (0-2); LYMPHOCYTES 57 % (9-44); MONOCYTES 10 % (0-8); NEUTROPHIL # MANUAL DIFF 8.5 TH/MM3 (1.8-7.7); POLYS (SEG NEUTROPHILS) 31 % (16-70)
[2017-08-08 21:49] LABS: ACANTHOCYTES OCC (NORMAL)
--- NOTE | 2017-08-08 22:15 | RADRPT ---
EXAM DATE/TIME: 08/08/2017 20:14 [facility] COMPARISON: No previous studies available for comparison. INDICATIONS : Viral infection, evaluate for mass. IV CONTRAST: 90 cc Omnipaque 350 (iohexol) IV ; Cumulative dose for multiple exams. RADIATION DOSE: 8.25 CTDIvol (mGy) ; Combined studies - Thorax/Abdomen/Pelvis MEDICAL HISTORY : HIV. Hypertension. Hepatitis C.CVA SURGICAL HISTORY : None. ENCOUNTER: Initial ACUITY: 1 day PAIN SCALE: 0/10 LOCATION: chest TECHNIQUE: Volumetric scanning of the chest was performed. Using automated exposure control and adjustment of t he mA and/or kV according to patient size, radiation dose was kept as low as reasonably achievable to obtain optimal diagnostic quality images. DICOM format image data is available electronically for review and comparison. Follow-up recommendations for detected pulmonary nodules are based at a minimum on nodule size and pa tient risk factors according to Fleischner Society Guidelines. FINDINGS: LUNGS: There is no consolidation or pneumothorax. No concerning pulmonary nodule is visualized. PLEURA: There is no pleural thickening or pleural effusion. MEDIASTINUM: The heart and great vessels demonstrate no acute abnormality. There is no mediastinal or hilar lymph adenopathy. AXILLAE: Within normal limits. No lymphadenopathy. SKELETAL: Within normal limits for patient age. MISCELLANEOUS: The visualized upper abdominal organs demonstrate no acute abnormality. CONCLUSION: 1. No acute findings. No adenopathy or effusion. Wesly Chapin MD on August 08, 2017 at 22:02 Board Certified Radiologist. This report was verified electronically.
--- NOTE | 2017-08-08 22:21 | RADRPT ---
EXAM DATE/TIME: 08/08/2017 20:14 [facility] COMPARISON: No previous studies available for comparison. INDICATIONS : Viral infection, evaluate for mass. IV CONTRAST: 90 cc Omnipaque 350 (iohexol) IV ; Cumulative dose for multiple exams. ORAL CONTRAST: Prescribed oral contrast ingested. RADIATION DOSE: 8.25 CTDIvol (mGy) ; Combined studies - Thorax/Abdomen/Pelvis MEDICAL HISTORY : Hepatitis C. HIV. Hypertension.CVA SURGICAL HISTORY : None. ENCOUNTER: Initial ACUITY: 1 day PAIN SCALE: 0/10 LOCATION: abdomen TECHNIQUE: Volumetric scanning of the abdomen and pelvis was performed. Using automated exposure control and ad justment of the mA and/or kV according to patient size, radiation dose was kept as low as reasonably achievable to obtain optimal diagnostic quality images. DICOM format image data is available electro nically for review and comparison. FINDINGS: No acute findings in the liver, spleen, adrenals, kidneys or pancreas. No calcified gallstones or deon iary ductal dilatation. There is mild constipation. No free air or free fluid. No adenopathy. CONCLUSION: 1. No acute findings. No adenopathy. Mild constipation. Wesly Chapin MD on August 08, 2017 at 22:13 Board Certified Radiologist. This report was verified electronically.
[2017-08-09 05:56] VITALS: BP 129/69; PULSE 103; RESP 18; TEMP 98.5; O2SAT 99
[2017-08-09 07:23] LABS: HEMATOCRIT 39.1 % (39.0-51.0); HEMOGLOBIN 13.2 GM/DL (13.0-17.0); MEAN CORPUSCULAR HGB CONC 33.7 % (32.0-36.0); MEAN PLATELET VOLUME 8.1 FL (7.0-11.0); PLATELET COUNT 276 TH/MM3 (150-450); RED BLOOD COUNT 4.55 MIL/MM3 (4.50-5.90); RED CELL DISTRIBUTION WIDTH 14.2 % (11.6-17.2); WHITE BLOOD COUNT 22.5 TH/MM3 (4.0-11.0)
[2017-08-09] MEDS: HALOPERIDOL LACTATE 5 MG/ML AMP IM SCH ×2 (09:00→21:00)
[2017-08-09] MEDS ORDERED: HALOPERIDOL 5 MG TAB PO SCH (09:00)
[2017-08-09 09:23] LABS: BANDS 1 % (0-6); LYMPHOCYTES 49 % (9-44); MONOCYTES 19 % (0-8); NEUTROPHIL # MANUAL DIFF 6.8 TH/MM3 (1.8-7.7); PLASMA CELLS 1 % (0-0); POLYS (SEG NEUTROPHILS) 29 % (16-70)
--- NOTE | 2017-08-09 09:51 | HHI.PR ---
Subjective Remarks pt states "everything is great". When asked why he is not taking some of his meds, he answers "I don't need them". I explained one is for his BP and HR and he refuse it states "everything is great" and giggles. No concerns or complaints. Objective Vitals Vital Signs Date Time Temp Pulse Resp B/P (MAP) Pulse Ox O2 Delivery O2 Flow Rate FiO2 08/09/17 05:56 98.5 103 18 129/69 (89) 99 08/08/17 18:21 98.8 112 20 139/85 (103) 98 I/O 08/08/17 08/08/17 08/08/17 08/09/17 08/09/17 08/09/17 07:00 15:00 23:00 07:00 15:00 23:00 Intake Total 240 ml 480 ml 960 ml 720 ml Balance 240 ml 480 ml 960 ml 720 ml Intake Oral 240 ml 480 ml 960 ml 720 ml # Voids 2 7 # Bowel Movements 0 Result Diagram: 08/09/17 0655 08/08/17 1845 Imaging Last Impressions Chest CT 08/08/17 0000 Signed Impressions: Service Date/Time: Tuesday, August 08, 2017 20:14 - CONCLUSION: 1. No acute findings. No adenopathy or effusion. Wesly Chapin MD Abdomen/Pelvis CT 08/08/17 0000 Signed Impressions: Service Date/Time: Tuesday, August 08, 2017 20:14 - CONCLUSION: 1. No acute findings. No adenopathy. Mild constipation. Wesly Chapin MD Liver Ultrasound 07/26/17 0000 Signed Impressions: Service Date/Time: July 16:09 - CONCLUSION: 1. Unremarkable abdominal ultrasound examination. Randall Patten MD Chest X-Ray 07/23/17 1850 Signed Impressions: Service Date/Time: Sunday, July 23, 2017 19:34 - CONCLUSION: Normal examination. Sherif Steel MD Head CT 06/20/17 0000 Signed Impressions: Service Date/Time: June 03:11 - CONCLUSION: 1. No acute hemorrhage or mass effect. 2. Areas of encephalomalacia in the left temporal and parietal lobes. 3. Mild to moderate atrophic change. Simone Wolf MD Renal Ultrasound 06/19/17 0000 Signed Impressions: Service Date/Time: Monday, June 19, 2017 16:47 - CONCLUSION: 1. Elevated velocities in the proximal and mid right renal artery. 2. Nonvisualization of the left mid renal artery with elevated velocity in the distal portion of the renal artery. 3. Echogenic kidneys characteristic of medical renal disease. There is no hydronephrosis. Simone Wolf MD Objective Remarks scaly, dry, peeled of skin diffusely erythematous rash is significantly resolved as compared to 07/23 when it first started mildly tachycardic w no murmurs lungs clear abdomen soft and nontender no calf asymmetry or edema moves all extremities Procedures NONE A/P Problem List: (1) Hypertension ICD Code: I10 - Essential (primary) hypertension Status: Chronic (2) HIV (human immunodeficiency virus infection) ICD Code: Z21 - Asymptomatic human immunodeficiency virus [HIV] infection status Status: Chronic (3) Viral rash ICD Code: B09 - Unspecified viral infection characterized by skin and mucous membrane lesions Status: Resolved Assessment and Plan Fever Generalized blanching erythema Possible viral exanthem pain HIV - patient on Odefsey 1 tab daily for HIV but has not received since this admission due to no availability at our hospital bipolar disorder/schizophrenia management per psychiatry. Hypertension- Elevated velocities in the proximal and mid right renal artery; Nonvisualization of the left mid renal artery with elevated velocity in the distal portion of the renal artery; Echogenic kidneys characteristic of medical renal disease. Hepatitis C Plan: haldol, pt seems much improved psychiatrically as compared to yesterday will montior bp. Pt refusing all medical meds. monitor for tremors- [facility] drug withdrawal skin biopsy - would need consent from docs- general sx to be called back once this is arranged- would need sedation for biopsy ID and general sx notes reviewed Discharge Planning per primary team Problem Qualifiers (1) Hypertension: Qualified Codes: I10 - Essential (primary) hypertension Maria Elena Marcum MD Aug 09, 2017 09:51
--- NOTE | 2017-08-09 14:01 | HHI.PYPN ---
Subjective Remarks Patient seen for follow-up, chart review. Discussion she staff reported the patient has a compliant with medications and were pleasant. Patient was found sitting in hospital bed, cooperative stated based feeling "excellent" reports eating and drinking without physical completed this time and is pleased that his rash is resolving. Patient continues to comply with medications specifically antipsychotic. Patient continues with persistent rastafari delusions and auditory hallucinations from the same. Review of Systems Except as stated in HPI: all other systems reviewed are Neg Mental Status Examination Appearance: Disheveled, Other (noted with generalized rash) Consciousness: Alert Orientation: Person, Place (at least) Motor Activity: Normal gait, Other Speech: Unremarkable Language: Adequate Fund of Knowledge: Adequate Attention and Concentration: Inadequate Memory: Unremarkable Mood: Appropriate Affect: Appropriate Thought Process & Associations: Linear Thought Content: Bizarre thinking, Hallucinations, Delusional Hallucination Type: Auditory Delusion Type: Bizarre, Paranoid, Other (rastafari) Suicidal Ideation: No Suicidal Plan: No Suicidal Intention: No Homicidal Ideation: No Homicidal Plan: No Homicidal Intention: No Insight: Poor Judgment: Poor Results Labs Labs reviewed Test 08/08/17 18:45 08/09/17 06:55 White Blood Count 27.4 TH/MM3 22.5 TH/MM3 Red Blood Count 4.47 MIL/MM3 4.55 MIL/MM3 Hemoglobin 12.9 GM/DL 13.2 GM/DL Hematocrit 38.6 % 39.1 % Mean Corpuscular Volume 86.2 FL 86.0 FL Mean Corpuscular Hemoglobin 28.9 PG 29.0 PG Mean Corpuscular Hemoglobin Concent 33.5 % 33.7 % Red Cell Distribution Width 14.1 % 14.2 % Platelet Count 289 TH/MM3 276 TH/MM3 Mean Platelet Volume 8.4 FL 8.1 FL CBC Comment AUTO DIFF AUTO DIFF Differential Total Cells Counted 100 100 Neutrophils % (Manual) 31 % 29 % Lymphocytes % 57 % 49 % Monocytes % 10 % 19 % Basophils % 1 % Other Cells % 1 % Neutrophils # (Manual) 8.5 TH/MM3 6.8 TH/MM3 Differential Comment FINAL DIFF MANUAL FINAL DIFF MANUAL Atypical Lymphocytes % Platelet Estimate NORMAL NORMAL Platelet Morphology Comment NORMAL NORMAL Acanthocytes OCC Blood Smear Pathologist Review Blood Urea Nitrogen 13 MG/DL Creatinine 0.84 MG/DL Random Glucose 101 MG/DL Total Protein 5.7 GM/DL Albumin 2.9 GM/DL Calcium Level 8.8 MG/DL Alkaline Phosphatase 349 U/L Aspartate Amino Transf (AST/SGOT) 86 U/L Alanine Aminotransferase (ALT/SGPT) 215 U/L Total Bilirubin 0.5 MG/DL Sodium Level 134 MEQ/L Potassium Level 4.3 MEQ/L Chloride Level 99 MEQ/L Carbon Dioxide Level 31.6 MEQ/L Anion Gap 3 MEQ/L Estimat Glomerular Filtration Rate 94 ML/MIN Band Neutrophils % 1 % Eosinophils % 1 % Plasma Cells 1 % Red Cell Morphology Comment NORMAL Date/Time Source Procedure Growth Status 07/23/17 20:14 Blood Peripheral Aerobic Blood Culture - Final NO GROWTH IN 5 DAYS Complete 07/23/17 20:14 Anaerobic Blood Culture - Final Staphylococcus Epidermidis Complete Vitals/IOs Vital Signs Date Time Temp Pulse Resp B/P (MAP) Pulse Ox O2 Delivery O2 Flow Rate FiO2 08/09/17 05:56 98.5 103 18 129/69 (89) 99 Intake and Output 08/09/17 08/09/17 08/10/17 08:00 16:00 00:00 Intake Total 600 ml Balance 600 ml Assessment & Plan Problem List: (1) Psychotic disorder ICD Codes: F29 - Unspecified psychosis not due to a substance or known physiological condition Status: Acute Assessment & Plan Patient at this time noted to be less irritable more cooperative with staff, taking antipsychotic medications but continues refused antihypertensives. Patient persistently rastafari delusions despite treatment. We'll continue to titrate Haldol to 10mg BID for psychosis. Continue recognition her primary medical team. Discharge planning in progress Justification for Cont. Inpt. At risk for further decompensation if at lower level of care [facility]charge Planning [facility] Problem Qualifiers (1) Psychotic disorder: Qualified Codes: F23 - Brief psychotic disorder Jhoan Tabares MD Aug 09, 2017 14:01
[2017-08-09 19:13] VITALS: BP 131/80; PULSE 93; RESP 18; TEMP 99; O2SAT 95
[2017-08-09] MEDS: HALOPERIDOL 10 MG TAB PO SCH (21:38)
--- NOTE | 2017-08-09 21:47 | PD.ONC.PN ---
Subjective Subjective Remarks No LAD seen on CT scans Flow cytometry results pending no further recommendations at this time Objective Data Date Time Temp Pulse Resp B/P (MAP) Pulse Ox O2 Delivery O2 Flow Rate FiO2 08/09/17 19:13 99.0 93 18 131/80 (97) 95 08/09/17 05:56 98.5 103 18 129/69 (89) 99 08/09/17 08/09/17 08/09/17 07:00 15:00 23:00 Intake Total 720 ml 1020 ml 360 ml Balance 720 ml 1020 ml 360 ml Result Diagram: 08/09/17 0655 08/08/17 1845 Laboratory Results Laboratory Tests Test 08/09/17 06:55 White Blood Count 22.5 TH/MM3 Red Blood Count 4.55 MIL/MM3 Hemoglobin 13.2 GM/DL Hematocrit 39.1 % Mean Corpuscular Volume 86.0 FL Mean Corpuscular Hemoglobin 29.0 PG Mean Corpuscular Hemoglobin Concent 33.7 % Red Cell Distribution Width 14.2 % Platelet Count 276 TH/MM3 Mean Platelet Volume 8.1 FL CBC Comment AUTO DIFF Differential Total Cells Counted 100 Neutrophils % (Manual) 29 % Band Neutrophils % 1 % Lymphocytes % 49 % Monocytes % 19 % Eosinophils % 1 % Neutrophils # (Manual) 6.8 TH/MM3 Differential Comment FINAL DIFF MANUAL Plasma Cells 1 % Platelet Estimate NORMAL Platelet Morphology Comment NORMAL Red Cell Morphology Comment NORMAL Administered Medications Medications (Trade) Dose Ordered Sig/Zina Route PRN Reason Start Time Stop Time Status Last Admin Dose Admin Lorazepam (Ativan) 1 mg Q6H PRN PO MODERATE TO SEVERE ANXIETY 06/12/17 15:45 Future Hold 07/25/17 20:55 Acetaminophen (Tylenol) 650 mg Q4H PRN PO Pain 1-5 or Temp >101F 06/12/17 15:45 Future Hold 07/23/17 18:04 Clonidine (Catapres) 0.2 mg Q6H PRN PO SBP>160, DBP>90 06/15/17 12:30 Future Hold 06/21/17 17:22 Metoprolol Succinate (Toprol Xl) 100 mg DAILY PO 06/16/17 09:00 Future Hold 07/26/17 10:47 Nifedipine (Procardia Xl) 90 mg DAILY PO 06/20/17 09:00 Future Hold 07/23/17 08:22 Hydralazine HCl (Apresoline) 25 mg Q8HR PO 06/21/17 22:00 Future Hold 07/26/17 06:26 Lisinopril (Prinivil) 5 mg DAILY PO 07/26/17 09:00 Future Hold 07/26/17 10:47 Haloperidol (Haldol) 10 mg BID PO 08/09/17 21:00 08/09/17 21:38 Objective Remarks GENERAL: nad SKIN: Warm and dry. LYMPHATIC: No adenopathy. CARDIOVASCULAR: Regular rate and rhythm without murmurs. RESPIRATORY: Breath sounds equal bilaterally. No accessory muscle use. GASTROINTESTINAL: Abdomen soft, non-tender, nondistended. EXTREMITIES: No cyanosis, or edema. . Assessment/Plan Problem List: (1) Lymphocytosis ICD Codes: D72.820 - Lymphocytosis (symptomatic) Plan: --differential includes underlying reactive process from infection such as HIV and viral hepatitis from hep C vs underlying lymphoproliferative disorder such as CLL (less likely) --will obtain peripheral smear, flow cytometry, CT of chest abdomen and pelvis. (2) HIV (human immunodeficiency virus infection) ICD Codes: Z21 - Asymptomatic human immunodeficiency virus [HIV] infection status Status: Chronic (3) Viral rash ICD Codes: B09 - Unspecified viral infection characterized by skin and mucous membrane lesions Status: Resolved Assessment 61y/o male admitted to med/psych with psychosis. Oncology consulted for lymphocytosis. history of bipolar disorder and schizophrenia history of HIV who is currently off his HAART therapy. absent temporal lobe syndrome. history of cannabis use. Plan Flow cytometry pending Lymphocytosis likely due to florid HIV infection and Hep C Dusty Mattson MD Aug 09, 2017 21:47
[2017-08-10 06:06] VITALS: BP 141/87; PULSE 100; RESP 18; TEMP 98.1; O2SAT 99
[2017-08-10 07:48] LABS: HEMATOCRIT 39.6 % (39.0-51.0); HEMOGLOBIN 13.4 GM/DL (13.0-17.0); MEAN CELL VOLUME 86.2 FL (80.0-100.0); MEAN CORPUSCULAR HEMOGLOBIN 29.1 PG (27.0-34.0); MEAN CORPUSCULAR HGB CONC 33.7 % (32.0-36.0); MEAN PLATELET VOLUME 8.1 FL (7.0-11.0); PLATELET COUNT 272 TH/MM3 (150-450); RED CELL DISTRIBUTION WIDTH 14.3 % (11.6-17.2); WHITE BLOOD COUNT 20.3 TH/MM3 (4.0-11.0)
--- NOTE | 2017-08-10 08:00 | HHI.PYPN ---
Subjective Remarks Patient seen for follow-up, chart reviewed. Discussion she staff reported that they have been no change with patient's compliant with medications. Patient was found lying in hospital bed noted to be somewhat paranoid and perseverative on doctors that should cure HIV and cancer. Patient states that it is [place] plan to eradicate HIV. Patient continues judaism delusions and preoccupation. Patient tolerating medications well noted to be less irritable along with noted to have improvement in rash. Review of Systems Except as stated in HPI: all other systems reviewed are Neg Mental Status Examination Appearance: Disheveled, Other (noted with generalized rash) Consciousness: Alert Orientation: Person, Place (at least) Motor Activity: Normal gait, Other Speech: Unremarkable Language: Adequate Fund of Knowledge: Adequate Attention and Concentration: Inadequate Memory: Unremarkable Mood: Appropriate Affect: Appropriate Thought Process & Associations: Linear Thought Content: Bizarre thinking, Hallucinations, Delusional Hallucination Type: Auditory Delusion Type: Bizarre, Paranoid, Other (judaism) Suicidal Ideation: No Suicidal Plan: No Suicidal Intention: No Homicidal Ideation: No Homicidal Plan: No Homicidal Intention: No Insight: Poor Judgment: Poor Results Labs Labs reviewed Test 08/10/17 06:50 Date/Time Source Procedure Growth Status 07/23/17 20:14 Blood Peripheral Aerobic Blood Culture - Final NO GROWTH IN 5 DAYS Complete 07/23/17 20:14 Anaerobic Blood Culture - Final Staphylococcus Epidermidis Complete Vitals/IOs Vital Signs Date Time Temp Pulse Resp B/P (MAP) Pulse Ox O2 Delivery O2 Flow Rate FiO2 08/10/17 06:06 98.1 100 18 141/87 (105) 99 Intake and Output 08/10/17 08/10/17 08/11/17 08:00 16:00 00:00 Intake Total 240 ml Balance 240 ml Assessment & Plan Problem List: (1) Psychotic disorder ICD Codes: F29 - Unspecified psychosis not due to a substance or known physiological condition Status: Acute Assessment & Plan Patient at this time continues judaism delusions and auditory hallucinations from the same. Patient compliant with his current treatment. Patient continues to deny antihypertensives although blood pressure has been fairly stable patient has propensity to have uncontrolled hypertension when not and treatment. Continue current regimen. Continue cognition is her primary medical team. Discharge planning in progress Justification for Cont. Inpt. At risk for further decompensation if at lower level of care Discharge Planning To be determined Problem Qualifiers (1) Psychotic disorder: Qualified Codes: F23 - Brief psychotic disorder Jhoan Tabares MD Aug 10, 2017 08:00
--- NOTE | 2017-08-10 08:43 | HHI.PR ---
Subjective Remarks In bed appears in nad. He say she feels good. Refusing some meds and care. Patient denies having any cp, sob, n/v/d/c. No fever ro chills. Ambulating without any problems. Objective Vitals Vital Signs Date Time Temp Pulse Resp B/P (MAP) Pulse Ox O2 Delivery O2 Flow Rate FiO2 08/10/17 06:06 98.1 100 18 141/87 (105) 99 08/09/17 19:13 99.0 93 18 131/80 (97) 95 I/O 08/09/17 08/09/17 08/09/17 08/10/17 08/10/17 08/10/17 07:00 15:00 23:00 07:00 15:00 23:00 Intake Total 720 ml 1020 ml 480 ml 240 ml Balance 720 ml 1020 ml 480 ml 240 ml Intake Oral 720 ml 1020 ml 480 ml 240 ml # Voids 7 3 3 # Bowel Movements 0 Result Diagram: 08/10/17 0650 08/08/17 1845 Imaging Last Impressions Chest CT 08/08/17 0000 Signed Impressions: Service Date/Time: Tuesday, August 08, 2017 20:14 - CONCLUSION: 1. No acute findings. No adenopathy or effusion. Wesly Chapin MD Abdomen/Pelvis CT 08/08/17 0000 Signed Impressions: Service Date/Time: Tuesday, August 08, 2017 20:14 - CONCLUSION: 1. No acute findings. No adenopathy. Mild constipation. Wesly Chapin MD Liver Ultrasound 07/26/17 0000 Signed Impressions: Service Date/Time: July 16:09 - CONCLUSION: 1. Unremarkable abdominal ultrasound examination. Randall Patten MD Chest X-Ray 07/23/17 1850 Signed Impressions: Service Date/Time: Sunday, July 23, 2017 19:34 - CONCLUSION: Normal examination. Sherif Steel MD Head CT 06/20/17 0000 Signed Impressions: Service Date/Time: June 03:11 - CONCLUSION: 1. No acute hemorrhage or mass effect. 2. Areas of encephalomalacia in the left temporal and parietal lobes. 3. Mild to moderate atrophic change. Simone Wolf MD Renal Ultrasound 06/19/17 0000 Signed Impressions: Service Date/Time: Monday, June 19, 2017 16:47 - CONCLUSION: 1. Elevated velocities in the proximal and mid right renal artery. 2. Nonvisualization of the left mid renal artery with elevated velocity in the distal portion of the renal artery. 3. Echogenic kidneys characteristic of medical renal disease. There is no hydronephrosis. Simone Wolf MD Objective Remarks GENERAL: Skinny paranoid 61 yo male, in bed, appears comfortable. SKIN: Scaly, dry, peeled of skin diffusely all over body. Erythematous rash is significantly improved. CARDIOVASCULAR: Tachycardia. Regular rate and rhythm. RESPIRATORY: No accessory muscle use. Clear to auscultation. Breath sounds equal bilaterally. GASTROINTESTINAL: Abdomen soft, non-tender, nondistended. Hepatic and splenic margins not palpable. MUSCULOSKELETAL: Extremities without clubbing, cyanosis, or edema. No obvious deformities. NEUROLOGICAL: Awake and alert. No obvious cranial nerve deficits. Motor grossly within normal limits. Five out of 5 muscle strength in the arms and legs. Normal speech. PSYCHIATRIC: Appropriate mood and affect; insight and judgment normal. Procedures NONE A/P Problem List: (1) Hypertension ICD Code: I10 - Essential (primary) hypertension Status: Chronic (2) HIV (human immunodeficiency virus infection) ICD Code: Z21 - Asymptomatic human immunodeficiency virus [HIV] infection status Status: Chronic (3) Viral rash ICD Code: B09 - Unspecified viral infection characterized by skin and mucous membrane lesions Status: Resolved Assessment and Plan Fever Generalized blanching erythema Possible viral exanthem pain HIV - patient on Odefsey 1 tab daily for HIV but has not received since this admission due to no availability at our hospital Bipolar disorder/schizophrenia management per psychiatry. Hypertension- Elevated velocities in the proximal and mid right renal artery; Nonvisualization of the left mid renal artery with elevated velocity in the distal portion of the renal artery; Echogenic kidneys characteristic of medical renal disease. Hepatitis C Haldol Continue to monitor BP. Pt refusing all medical meds. Monitor for tremors- from drug withdrawal Skin biopsy - would need consent from docs- general sx to be called back once this is arranged. Heme/onc following for lymphocytosis. Pt refused Biopsy per ID notes, it has been canceled. ID and general sx notes reviewed Discharge Planning Per primary team Problem Qualifiers (1) Hypertension: Qualified Codes: I10 - Essential (primary) hypertension Diana Damon MD Aug 10, 2017 08:43
[2017-08-10 08:47] LABS: ALBUMIN 2.7 GM/DL (3.4-5.0); BICARBONATE 29.3 MEQ/L (21.0-32.0); BLOOD UREA NITROGEN 10 MG/DL (7-18); CALCIUM 8.6 MG/DL (8.5-10.1); CHLORIDE 101 MEQ/L (98-107); CREATININE 0.91 MG/DL (0.60-1.30); GLOMERULAR FILTRATION RATE 85 ML/MIN (>89); GLUCOSE,RANDOM 107 MG/DL (74-106); SODIUM (NA) 137 MEQ/L (136-145)
[2017-08-10] MEDS: HALOPERIDOL 10 MG TAB PO SCH ×2 (08:52→21:09)
[2017-08-10] MEDS: HALOPERIDOL LACTATE 5 MG/ML AMP IM SCH ×2 (08:55→21:00)
[2017-08-10 08:56] LABS: ALKALINE PHOSPHATASE 314 U/L (45-117); ALT (GPT) 135 U/L (12-78); AST (GOT) 46 U/L (15-37); TOTAL BILIRUBIN ADULT 0.5 MG/DL (0.2-1.0); TOTAL PROTEIN 5.6 GM/DL (6.4-8.2)
[2017-08-10 09:24] LABS: BANDS 8 % (0-6); LYMPHOCYTES 52 % (9-44); MONOCYTES 5 % (0-8); NEUTROPHIL # MANUAL DIFF 8.5 TH/MM3 (1.8-7.7); POLYS (SEG NEUTROPHILS) 34 % (16-70)
[2017-08-10 09:30] LABS: OVALOCYTES 1+ (NORMAL)
[2017-08-10 18:36] VITALS: BP 134/79; PULSE 104; RESP 16; TEMP 99.2; O2SAT 96
[2017-08-11 05:54] VITALS: BP 142/87; PULSE 105; RESP 17; TEMP 98.2; O2SAT 98
--- NOTE | 2017-08-11 08:02 | HHI.PYPN ---
Subjective Remarks Patient seen in his room with nurse Sherron, chart reviewed, patient compliant medication. Patient is quite psychotic continues to talk about his fireball that was living in his left foot but now is in his ears talking to his demon. He also states his "double" is living in his right foot. Eval seem to get along and converse with him. He continues to make markedly bizarre delusional statements related to [employer] and Logan Silvino. For now continue treatment Review of Systems Except as stated in HPI: all other systems reviewed are Neg Mental Status Examination Appearance: Disheveled, Other (noted with generalized rash) Consciousness: Alert Orientation: Person, Place (at least) Motor Activity: Normal gait, Other Speech: Unremarkable Language: Adequate Fund of Knowledge: Adequate Attention and Concentration: Inadequate Memory: Unremarkable Mood: Appropriate Affect: Appropriate Thought Process & Associations: Linear Thought Content: Bizarre thinking, Hallucinations, Delusional Hallucination Type: Auditory Delusion Type: Bizarre, Paranoid, Other (adventist) Suicidal Ideation: No Suicidal Plan: No Suicidal Intention: No Homicidal Ideation: No Homicidal Plan: No Homicidal Intention: No Insight: Poor Judgment: Poor Results Labs Date/Time Source Procedure Growth Status 07/23/17 20:14 Blood Peripheral Aerobic Blood Culture - Final NO GROWTH IN 5 DAYS Complete 07/23/17 20:14 Anaerobic Blood Culture - Final Staphylococcus Epidermidis Complete Vitals/IOs Vital Signs Date Time Temp Pulse Resp B/P (MAP) Pulse Ox O2 Delivery O2 Flow Rate FiO2 08/11/17 05:54 98.2 105 17 142/87 (105) 98 Intake and Output 08/11/17 08/11/17 08/12/17 08:00 16:00 00:00 Intake Total 1200 ml Balance 1200 ml Assessment & Plan Problem List: (1) Psychotic disorder ICD Codes: F29 - Unspecified psychosis not due to a substance or known physiological condition Status: Acute Assessment & Plan Estimated LOS: days patient is markedly psychotic and delusional. Though calm pleasant with me. For now continue treatment Justification for Cont. Inpt. At this time patient will decompensate and placed in a lower level of care Discharge Planning Tonsils continue to work on placement issues Problem Qualifiers (1) Psychotic disorder: Qualified Codes: F23 - Brief psychotic disorder Nixon Cole MD Aug 11, 2017 08:02
--- NOTE | 2017-08-11 08:02 | HHI.PR ---
Subjective Remarks In bed says he feels good. He has some oral thrush however says doesn't want any medications. Denies any chest pain or shortness of breath nausea vomiting diarrhea or constipation. He is eating well Objective Vitals Vital Signs Date Time Temp Pulse Resp B/P (MAP) Pulse Ox O2 Delivery O2 Flow Rate FiO2 08/11/17 05:54 98.2 105 17 142/87 (105) 98 08/10/17 18:36 99.2 104 16 134/79 (97) 96 I/O 08/10/17 08/10/17 08/10/17 08/11/17 08/11/17 08/11/17 07:00 15:00 23:00 07:00 15:00 23:00 Intake Total 240 ml 2760 ml 1920 ml 1200 ml Balance 240 ml 2760 ml 1920 ml 1200 ml Intake Oral 240 ml 2760 ml 1920 ml 1200 ml # Voids 3 2 3 Result Diagram: 08/10/17 0650 08/10/17 0650 Imaging Last Impressions Chest CT 08/08/17 0000 Signed Impressions: Service Date/Time: Tuesday, August 08, 2017 20:14 - CONCLUSION: 1. No acute findings. No adenopathy or effusion. Wesly Chapin MD Abdomen/Pelvis CT 08/08/17 0000 Signed Impressions: Service Date/Time: Tuesday, August 08, 2017 20:14 - CONCLUSION: 1. No acute findings. No adenopathy. Mild constipation. Wesly Chapin MD Liver Ultrasound 07/26/17 0000 Signed Impressions: Service Date/Time: July 16:09 - CONCLUSION: 1. Unremarkable abdominal ultrasound examination. Randall Patten MD Chest X-Ray 07/23/17 2520 Signed Impressions: Service Date/Time: Sunday, July 23, 2017 19:34 - CONCLUSION: Normal examination. Sherif Steel MD Head CT 06/20/17 0000 Signed Impressions: Service Date/Time: June 03:11 - CONCLUSION: 1. No acute hemorrhage or mass effect. 2. Areas of encephalomalacia in the left temporal and parietal lobes. 3. Mild to moderate atrophic change. Simone Wolf MD Renal Ultrasound 06/19/17 0000 Signed Impressions: Service Date/Time: Monday, June 19, 2017 16:47 - CONCLUSION: 1. Elevated velocities in the proximal and mid right renal artery. 2. Nonvisualization of the left mid renal artery with elevated velocity in the distal portion of the renal artery. 3. Echogenic kidneys characteristic of medical renal disease. There is no hydronephrosis. Simone Wolf MD Objective Remarks GENERAL: Skinny paranoid 61 yo male, in bed, appears comfortable. OROPHARYNX: Oral thrush. SKIN: Scaly, dry, peeled of skin diffusely all over body. Erythematous rash is significantly improved. CARDIOVASCULAR: Tachycardia. Regular rate and rhythm. RESPIRATORY: No accessory muscle use. Clear to auscultation. Breath sounds equal bilaterally. GASTROINTESTINAL: Abdomen soft, non-tender, nondistended. Hepatic and splenic margins not palpable. MUSCULOSKELETAL: Extremities without clubbing, cyanosis, or edema. No obvious deformities. NEUROLOGICAL: Awake and alert. No obvious cranial nerve deficits. Motor grossly within normal limits. Five out of 5 muscle strength in the arms and legs. Normal speech. PSYCHIATRIC: Appropriate mood and affect; insight and judgment normal. Procedures NONE A/P Problem List: (1) Hypertension ICD Code: I10 - Essential (primary) hypertension Status: Chronic (2) HIV (human immunodeficiency virus infection) ICD Code: Z21 - Asymptomatic human immunodeficiency virus [HIV] infection status Status: Chronic (3) Viral rash ICD Code: B09 - Unspecified viral infection characterized by skin and mucous membrane lesions Status: Resolved Assessment and Plan Fever Generalized blanching erythema Possible viral exanthem pain HIV - patient on Odefsey 1 tab daily for HIV but has not received since this admission due to no availability at our hospital Bipolar disorder/schizophrenia management per psychiatry. Hypertension- Elevated velocities in the proximal and mid right renal artery; Nonvisualization of the left mid renal artery with elevated velocity in the distal portion of the renal artery; Echogenic kidneys characteristic of medical renal disease. Hepatitis C Oral thrush, nystatin, however refusing medications Haldol Continue to monitor BP. Pt refusing all medical meds. Monitor for tremors- from drug withdrawal Skin biopsy - would need consent from docs- general sx to be called back once this is arranged. Heme/onc following for lymphocytosis. Pt refused Biopsy per ID notes, it has been canceled. ID and general sx notes reviewed Discharge Planning Per primary team Problem Qualifiers (1) Hypertension: Qualified Codes: I10 - Essential (primary) hypertension Diana Damon MD Aug 11, 2017 08:02
[2017-08-11] MEDS: HALOPERIDOL LACTATE 5 MG/ML AMP IM SCH ×2 (09:00→21:00)
[2017-08-11] MEDS: HALOPERIDOL 10 MG TAB PO SCH ×2 (09:50→20:20)
[2017-08-11 10:33] LABS: HEMATOCRIT 36.8 % (39.0-51.0); HEMOGLOBIN 12.2 GM/DL (13.0-17.0); MEAN CELL VOLUME 85.9 FL (80.0-100.0); MEAN CORPUSCULAR HEMOGLOBIN 28.5 PG (27.0-34.0); MEAN CORPUSCULAR HGB CONC 33.1 % (32.0-36.0); MEAN PLATELET VOLUME 7.5 FL (7.0-11.0); PLATELET COUNT 275 TH/MM3 (150-450); RED BLOOD COUNT 4.28 MIL/MM3 (4.50-5.90); RED CELL DISTRIBUTION WIDTH 14.1 % (11.6-17.2); WHITE BLOOD COUNT 23.4 TH/MM3 (4.0-11.0)
[2017-08-11 11:22] LABS: LYMPHOCYTES 68 % (9-44); MONOCYTES 9 % (0-8); NEUTROPHIL # MANUAL DIFF 5.4 TH/MM3 (1.8-7.7); POLYS (SEG NEUTROPHILS) 23 % (16-70)
[2017-08-11 11:23] LABS: SMUDGE CELLS PRESENT PRESENT
[2017-08-11 11:24] LABS: OVALOCYTES 1+ (NORMAL)
[2017-08-11] MEDS: NYSTATIN SUSP 500,000 U/5 ML CUP SWISH-SWAL SCH ×3 (13:00→21:00)
[2017-08-11 18:44] VITALS: BP 122/76; PULSE 102; RESP 18; TEMP 99.1; O2SAT 99
[2017-08-12 06:20] VITALS: BP 149/87; PULSE 106; RESP 16; TEMP 98.6; O2SAT 98
--- NOTE | 2017-08-12 07:39 | HHI.PR ---
Subjective Remarks Patient is at the margin of the bed. Appears in nad. Eating breakfast. Thrush improved. No problems with swallowing food. Refusing some meds. No fever ro chills.No cough. No n/v/d/c. Rash improved. Objective Vitals Vital Signs Date Time Temp Pulse Resp B/P (MAP) Pulse Ox O2 Delivery O2 Flow Rate FiO2 08/12/17 06:20 98.6 106 16 149/87 (107) 98 08/11/17 18:44 99.1 102 18 122/76 (91) 99 I/O 08/11/17 08/11/17 08/11/17 08/12/17 08/12/17 08/12/17 06:59 14:59 22:59 06:59 14:59 22:59 Intake Total 1200 ml 960 ml 1440 ml 360 ml Balance 1200 ml 960 ml 1440 ml 360 ml Intake Oral 1200 ml 960 ml 1440 ml 360 ml # Voids 2 1 Result Diagram: 08/11/17 1026 08/10/17 0650 Imaging Last Impressions Chest CT 08/08/17 0000 Signed Impressions: Service Date/Time: Tuesday, August 08, 2017 20:14 - CONCLUSION: 1. No acute findings. No adenopathy or effusion. Wesly Chapin MD Abdomen/Pelvis CT 08/08/17 0000 Signed Impressions: Service Date/Time: Tuesday, August 08, 2017 20:14 - CONCLUSION: 1. No acute findings. No adenopathy. Mild constipation. Wesly Chapin MD Liver Ultrasound 07/26/17 0000 Signed Impressions: Service Date/Time: July 16:09 - CONCLUSION: 1. Unremarkable abdominal ultrasound examination. Randall Patten MD Chest X-Ray 07/23/17 1850 Signed Impressions: Service Date/Time: Sunday, July 23, 2017 19:34 - CONCLUSION: Normal examination. Sherif Steel MD Head CT 06/20/17 0000 Signed Impressions: Service Date/Time: June 03:11 - CONCLUSION: 1. No acute hemorrhage or mass effect. 2. Areas of encephalomalacia in the left temporal and parietal lobes. 3. Mild to moderate atrophic change. Simone Wolf MD Renal Ultrasound 06/19/17 0000 Signed Impressions: Service Date/Time: Monday, June 19, 2017 16:47 - CONCLUSION: 1. Elevated velocities in the proximal and mid right renal artery. 2. Nonvisualization of the left mid renal artery with elevated velocity in the distal portion of the renal artery. 3. Echogenic kidneys characteristic of medical renal disease. There is no hydronephrosis. Simone Wolf MD Objective Remarks GENERAL: Skinny paranoid 61 yo male, in bed, appears comfortable. OROPHARYNX: Oral thrush improving. SKIN: Scaly, dry, peeled of skin diffusely all over body. Erythematous rash is significantly improved. CARDIOVASCULAR: Tachycardia. Regular rate and rhythm. RESPIRATORY: No accessory muscle use. Clear to auscultation. Breath sounds equal bilaterally. GASTROINTESTINAL: Abdomen soft, non-tender, nondistended. Hepatic and splenic margins not palpable. MUSCULOSKELETAL: Extremities without clubbing, cyanosis, or edema. No obvious deformities. NEUROLOGICAL: Awake and alert. No obvious cranial nerve deficits. Motor grossly within normal limits. Five out of 5 muscle strength in the arms and legs. Normal speech. PSYCHIATRIC: Appropriate mood and affect; insight and judgment normal. Procedures NONE A/P Problem List: (1) Hypertension ICD Code: I10 - Essential (primary) hypertension Status: Chronic (2) HIV (human immunodeficiency virus infection) ICD Code: Z21 - Asymptomatic human immunodeficiency virus [HIV] infection status Status: Chronic (3) Viral rash ICD Code: B09 - Unspecified viral infection characterized by skin and mucous membrane lesions Status: Resolved Assessment and Plan Fever Generalized blanching erythema Possible viral exanthem pain HIV - patient on Odefsey 1 tab daily for HIV but has not received since this admission due to no availability at our hospital Bipolar disorder/schizophrenia management per psychiatry. Hypertension- Elevated velocities in the proximal and mid right renal artery; Nonvisualization of the left mid renal artery with elevated velocity in the distal portion of the renal artery; Echogenic kidneys characteristic of medical renal disease. Hepatitis C Oral thrush, nystatin, however refusing medications Haldol Continue to monitor BP. Pt refusing all medical meds. Monitor for tremors- from drug withdrawal Skin biopsy - would need consent from docs- general sx to be called back once this is arranged. Heme/onc following for lymphocytosis. However pt refused Biopsy per ID notes, it has been canceled. ID and general sx notes reviewed. Rash improving. Discharge Planning Per primary team Problem Qualifiers (1) Hypertension: Qualified Codes: I10 - Essential (primary) hypertension Diana Damon MD Aug 12, 2017 07:39
--- NOTE | 2017-08-12 07:56 | HHI.PYPN ---
Subjective Remarks Patient seen in his room floor staff, chart review, patient compliant medication. It appears patient slept well though this a.m. he is awake and watching some retoucher photoengraving TV. He did make a comment about hearing the [place] 24[place]hour race. His delusions persist though he is not focusing on them at this time Review of Systems Except as stated in HPI: all other systems reviewed are Neg Mental Status Examination Appearance: Disheveled, Other (noted with generalized rash) Consciousness: Alert Orientation: Person, Place (at least) Motor Activity: Normal gait, Other Speech: Unremarkable Language: Adequate Fund of Knowledge: Adequate Attention and Concentration: Inadequate Memory: Unremarkable Mood: Appropriate Affect: Appropriate Thought Process & Associations: Linear Thought Content: Bizarre thinking, Hallucinations, Delusional Hallucination Type: Auditory Delusion Type: Bizarre, Paranoid, Other (christian) Suicidal Ideation: No Suicidal Plan: No Suicidal Intention: No Homicidal Ideation: No Homicidal Plan: No Homicidal Intention: No Insight: Poor Judgment: Poor Results Labs Test 08/11/17 10:26 White Blood Count 23.4 TH/MM3 Red Blood Count 4.28 MIL/MM3 Hemoglobin 12.2 GM/DL Hematocrit 36.8 % Mean Corpuscular Volume 85.9 FL Mean Corpuscular Hemoglobin 28.5 PG Mean Corpuscular Hemoglobin Concent 33.1 % Red Cell Distribution Width 14.1 % Platelet Count 275 TH/MM3 Mean Platelet Volume 7.5 FL CBC Comment AUTO DIFF Differential Total Cells Counted 100 Neutrophils % (Manual) 23 % Lymphocytes % 68 % Monocytes % 9 % Neutrophils # (Manual) 5.4 TH/MM3 Differential Comment FINAL DIFF MANUAL Smudge Cells PRESENT Platelet Estimate NORMAL Platelet Morphology Comment NORMAL Ovalocytes 1+ Date/Time Source Procedure Growth Status 07/23/17 20:14 Blood Peripheral Aerobic Blood Culture - Final NO GROWTH IN 5 DAYS Complete 07/23/17 20:14 Anaerobic Blood Culture - Final Staphylococcus Epidermidis Complete Vitals/IOs Vital Signs Date Time Temp Pulse Resp B/P (MAP) Pulse Ox O2 Delivery O2 Flow Rate FiO2 08/12/17 06:20 98.6 106 16 149/87 (107) 98 Intake and Output 08/12/17 08/12/17 08/13/17 08:00 16:00 00:00 Intake Total 360 ml Balance 360 ml Assessment & Plan Problem List: (1) Psychotic disorder ICD Codes: F29 - Unspecified psychosis not due to a substance or known physiological condition Status: Acute Assessment & Plan Estimated LOS: days patient remained psychotic and delusional. Compliant medications. For now continue treatment Justification for Cont. Inpt. At this time patient will decompensate if placed in the lower level of care Discharge Planning To be determined Problem Qualifiers (1) Psychotic disorder: Qualified Codes: F23 - Brief psychotic disorder Nixon Cole MD Aug 12, 2017 07:56
[2017-08-12] MEDS: NYSTATIN SUSP 500,000 U/5 ML CUP SWISH-SWAL SCH ×4 (09:00→21:43)
[2017-08-12] MEDS: HALOPERIDOL LACTATE 5 MG/ML AMP IM SCH ×2 (09:00→21:00)
[2017-08-12] MEDS: HALOPERIDOL 10 MG TAB PO SCH ×2 (09:39→21:44)
[2017-08-12 16:11] VITALS: BP 133/83; PULSE 108; RESP 16; TEMP 97.8; O2SAT 98
[2017-08-13 06:00] VITALS: BP 135/85; PULSE 106; RESP 18; TEMP 97.9; O2SAT 98
[2017-08-13] MEDS: HALOPERIDOL LACTATE 5 MG/ML AMP IM SCH ×2 (09:00→21:00)
[2017-08-13] MEDS: NYSTATIN SUSP 500,000 U/5 ML CUP SWISH-SWAL SCH ×4 (09:00→21:00)
--- NOTE | 2017-08-13 10:06 | HHI.PR ---
Subjective Remarks 08-12 Patient is at the margin of the bed. Appears in nad. Eating breakfast. Thrush improved. No problems with swallowing food. Refusing some meds. No fever ro chills.No cough. No n/v/d/c. Rash improved. 08-13 NOT A GOOD CANDIDATE TO RESTART HIV/AIDS MEDS DUE TO NONCOMPLIANCE WITH MEDICATIONS AND HIGH RISK OF RESISTANCE TO MULTIPLE MEDICATIONS- CAN BE RESTARTED BY [facility] OUTPATIENT IF BECOMES COMPLIANT Objective Vitals Vital Signs Date Time Temp Pulse Resp B/P (MAP) Pulse Ox O2 Delivery O2 Flow Rate FiO2 08/13/17 06:00 97.9 106 18 135/85 (102) 98 08/12/17 16:11 97.8 108 16 133/83 (100) 98 I/O 08/12/17 08/12/17 08/12/17 08/13/17 08/13/17 08/13/17 07:00 15:00 23:00 07:00 15:00 23:00 Intake Total 360 ml 480 ml 1200 ml 720 ml 360 ml Balance 360 ml 480 ml 1200 ml 720 ml 360 ml Intake Oral 360 ml 480 ml 1200 ml 720 ml 360 ml # Voids 1 2 5 Result Diagram: 08/11/17 1026 08/10/17 0650 Other Results Laboratory Tests Test 08/11/17 10:26 White Blood Count 23.4 TH/MM3 Red Blood Count 4.28 MIL/MM3 Hemoglobin 12.2 GM/DL Hematocrit 36.8 % Mean Corpuscular Volume 85.9 FL Mean Corpuscular Hemoglobin 28.5 PG Mean Corpuscular Hemoglobin Concent 33.1 % Red Cell Distribution Width 14.1 % Platelet Count 275 TH/MM3 Mean Platelet Volume 7.5 FL CBC Comment AUTO DIFF Differential Total Cells Counted 100 Neutrophils % (Manual) 23 % Lymphocytes % 68 % Monocytes % 9 % Neutrophils # (Manual) 5.4 TH/MM3 Differential Comment FINAL DIFF MANUAL Smudge Cells PRESENT Platelet Estimate NORMAL Platelet Morphology Comment NORMAL Ovalocytes 1+ Imaging Last Impressions Chest CT 08/08/17 0000 Signed Impressions: Service Date/Time: Tuesday, August 08, 2017 20:14 - CONCLUSION: 1. No acute findings. No adenopathy or effusion. Wesly Chapin MD Abdomen/Pelvis CT 08/08/17 0000 Signed Impressions: Service Date/Time: Tuesday, August 08, 2017 20:14 - CONCLUSION: 1. No acute findings. No adenopathy. Mild constipation. Wesly Chapin MD Liver Ultrasound 07/26/17 0000 Signed Impressions: Service Date/Time: July 16:09 - CONCLUSION: 1. Unremarkable abdominal ultrasound examination. Randall Patten MD Chest X-Ray 07/23/17 1850 Signed Impressions: Service Date/Time: Sunday, July 23, 2017 19:34 - CONCLUSION: Normal examination. Sherif Steel MD Head CT 06/20/17 0000 Signed Impressions: Service Date/Time: June 03:11 - CONCLUSION: 1. No acute hemorrhage or mass effect. 2. Areas of encephalomalacia in the left temporal and parietal lobes. 3. Mild to moderate atrophic change. Simone Wolf MD Renal Ultrasound 06/19/17 0000 Signed Impressions: Service Date/Time: Monday, June 19, 2017 16:47 - CONCLUSION: 1. Elevated velocities in the proximal and mid right renal artery. 2. Nonvisualization of the left mid renal artery with elevated velocity in the distal portion of the renal artery. 3. Echogenic kidneys characteristic of medical renal disease. There is no hydronephrosis. Simone Wolf MD Objective Remarks GENERAL: Awake alert and oriented answering talkative cooperative SKIN: Warm and dry. HEAD: Atraumatic. Normocephalic. EYES: Pupils equal and round. No scleral icterus. No injection or drainage. Extraocular muscles intact ENT: No nasal bleeding or discharge. Mucous membranes pink and moist. Tongue is midline NECK: Trachea midline. No JVD. Supple CARDIOVASCULAR: Regular rate and rhythm. S1-S2 no S3 or S4 RESPIRATORY: No accessory muscle use. Clear to auscultation. Breath sounds equal bilaterally. GASTROINTESTINAL: Abdomen soft, non-tender, nondistended. Hepatic and splenic margins not palpable. MUSCULOSKELETAL: Extremities without clubbing, cyanosis, or edema. No obvious deformities. NEUROLOGICAL: Awake and alert. No obvious cranial nerve deficits. Motor grossly within normal limits. 4 out of 5 muscle strength in the arms and legs. Normal speech. PSYCHIATRIC: INAppropriate mood and affect; insight and judgment ABnormal. Procedures NONE Medications and IVs Current Medications Atenolol (Tenormin) 50 mg ONCE ONCE PO Last administered on 06/11/17 18:16; Start 06/11/17 at 18:15; Stop 06/11/17 at 18:16; Status DC Lisinopril (Prinivil) 2.5 mg ONCE ONCE PO Last administered on 06/11/17 18: 16; Start 06/11/17 at 18:15; Stop 06/11/17 at 18:16; Status DC Clonidine (Catapres) 0.1 mg ONCE ONCE PO Last administered on 06/11/17 19:00 ; Start 06/11/17 at 19:00; Stop 06/11/17 at 19:03; Status DC Amlodipine Besylate (Norvasc) 10 mg ONCE ONCE PO Last administered on 20:45; Start 06/11/17 at 20:45; Stop 06/11/17 at 20:46; Status DC Clonidine (Catapres) 0.1 mg ONCE ONCE PO Last administered on 06/11/17 22:15 ; Start 06/11/17 at 22:15; Stop 06/11/17 at 22:16; Status DC Atenolol (Tenormin) 50 mg ONCE ONCE PO Last administered on 06/12/17 08:11; Start 06/12/17 at 08:00; Stop 06/12/17 at 08:01; Status DC Lisinopril (Prinivil) 5 mg ONCE ONCE PO Last administered on 06/12/17 08:10 ; Start 06/12/17 at 08:00; Stop 06/12/17 at 08:01; Status DC Lisinopril (Prinivil) 5 mg ONCE ONCE PO Last administered on 06/12/17 11:04 ; Start 06/12/17 at 11:00; Stop 06/12/17 at 11:02; Status DC Clonidine (Catapres) 0.1 mg ONCE ONCE PO Last administered on 06/12/17 16:05 ; Start 06/12/17 at 15:45; Stop 06/12/17 at 15:47; Status DC Lorazepam (Ativan) 1 mg Q6H PRN PO MODERATE TO SEVERE ANXIETY Last administered on 07/25/17at 20:55; Start 06/12/17 at 15:45; Status Future Hold Lorazepam (Ativan Inj) 1 mg Q6H PRN IM MODERATE TO SEVERE ANXIETY; Start 06/12 at 15:45; Status Future Hold Acetaminophen (Tylenol) 650 mg Q4H PRN PO Pain 1-5 or Temp >101F Last administered on 07/23/17 18:04; Start 06/12/17 at 15:45; Status Future Hold Magnesium Hydroxide (Milk Of Magnesia Liq) 30 ml DAILY PRN PO CONSTIPATION; Start 06/12/17 at 15:45; Status Future Hold Al Hydrox/Mg Hydrox/Simethicone (Mag-Al Plus Susp Liq) 30 ml Q6H PRN PO DYSPEPSIA; Start 06/12/17 at 15:45; Status Future Hold Acyclovir (Zovirax) 800 mg DAILY PO Last administered on 07/26/17at 10:45; Start 06/12/17 at 16:00; Stop 07/27/17 at 16:58; Status DC Ketoconazole (Nizoral 2% Cream) 1 applic BID TOPICAL Last administered on 07/03 08:42; Start 06/12/17 at 21:00; Stop 07/04/17 at 11:55; Status DC Metoprolol Succinate (Toprol Xl) 50 mg DAILY PO Last administered on 06/15/17 08:07; Start 06/12/17 at 16:00; Stop 06/15/17 at 09:27; Status DC Quetiapine Fumarate (SEROquel) 600 mg HS PO Last administered on 07/26/17at 21: 31; Start 06/12/17 at 21:00; Stop 08/06/17 at 16:42; Status DC Non-Formulary Medication 1 tab BID PO ; Start 06/12/17 at 21:00; Status UNV Non-Formulary Medication 1 tab DAILY PO ; Start 06/12/17 at 16:00; Status UNV Non-Formulary Medication 2.5 mg DAILY PO ; Start 06/12/17 at 16:00; Status UNV Lisinopril (Prinivil) 2.5 mg DAILY PO Last administered on 06/13/17 09:00; Start 06/13/17 at 09:00; Stop 06/14/17 at 09:10; Status DC Miscellaneous (Pill Splitter) 1 ea UNSCH PRN OTHER SEE LABEL COMMENTS; Start 06/12/17 at 16:30 Patient Own Medication PT OWN MED: ODEFSEY... DAILY PO ; Start 06/13/17 at 09: 00; Status Future Hold Patient Own Medication PT OWN MED: CALCIUM CARBONA... BID PO ; Start 06/12/17 at 21:00; Status Future Hold Clonidine (Catapres) 0.1 mg Q6H PRN PO SBP>160, DBP>90 Last administered on 02:22; Start 06/12/17 at 18:30; Stop 06/15/17 at 09:27; Status DC Pneumococcal Polyvalent Vaccine (Pneumovax-23 Inj) 25 mcg ONCE ONCE IM ; Start 06/13/17 at 09:00; Stop 06/13/17 at 09:01; Status DC Lisinopril (Prinivil) 10 mg DAILY PO Last administered on 06/19/17 08:16; Start 06/15/17 at 09:00; Stop 06/19/17 at 11:23; Status DC Quetiapine Fumarate (SEROquel) 25 mg BID@09,12 PO Last administered on 08:07; Start 06/14/17 at 12:00; Stop 06/15/17 at 11:15; Status DC Clonidine (Catapres) 0.1 mg ONCE ONCE PO Last administered on 06/14/17 22:04 ; Start 06/14/17 at 21:15; Stop 06/14/17 at 21:16; Status DC Hydralazine HCl (Apresoline) 50 mg ONCE ONCE PO Last administered on 04:19; Start 06/15/17 at 03:30; Stop 06/15/17 at 03:31; Status DC Haloperidol Lactate (Haldol Inj) 4 mg ONCE ONCE IV PUSH Last administered on 06/15/17 06:11; Start 06/15/17 at 06:00; Stop 06/15/17 at 06:01; Status DC Clonidine (Catapres) 0.2 mg Q6H PRN PO SBP>160, DBP>90 Last administered on 17:22; Start 06/15/17 at 12:30; Status Future Hold Metoprolol Succinate (Toprol Xl) 100 mg DAILY PO Last administered on at 10:47; Start 06/16/17 at 09:00; Status Future Hold Metoprolol Succinate (Toprol Xl) 50 mg ONCE ONCE PO Last administered on 09:52; Start 06/15/17 at 09:30; Stop 06/15/17 at 09:39; Status DC Quetiapine Fumarate (SEROquel) 50 mg BID@,12 PO Last administered on 09:00; Start 06/15/17 at 12:00; Stop 06/18/17 at 12:01; Status DC Nifedipine (Procardia Xl) 60 mg ONCE ONCE PO Last administered on 06/15/17 23 :27; Start 06/15/17 at 23:15; Stop 06/15/17 at 23:16; Status DC Nifedipine (Procardia Xl) 60 mg DAILY PO Last administered on 06/19/17 08:16; Start 06/16/17 at 09:00; Stop 06/19/17 at 12:12; Status DC Potassium Chloride (KCl) 40 meq ONCE ONCE PO Last administered on 06/16/17 11 :30; Start 06/16/17 at 11:30; Stop 06/16/17 at 11:31; Status DC Enalaprilat (Vasotec Inj) 2.5 mg ONCE ONCE IV PUSH Last administered on 00:05; Start 06/16/17 at 23:45; Stop 06/16/17 at 23:46; Status DC Hydralazine HCl (Apresoline) 10 mg Q8H PO Last administered on 06/19/17 08:16 ; Start 06/17/17 at 09:00; Stop 06/19/17 at 11:23; Status DC Quetiapine Fumarate (SEROquel) 100 mg BID@,12 PO Last administered on at 12:00; Start 06/18/17 at 12:00; Stop 08/06/17 at 16:42; Status DC Clonidine (Catapres) 0.2 mg ONCE ONCE PO Last administered on 06/19/17 05:57 ; Start 06/19/17 at 05:30; Stop 06/19/17 at 05:38; Status DC Lisinopril (Prinivil) 20 mg DAILY PO Last administered on 07/24/17at 09:00; Start 06/20/17 at 09:00; Stop 07/25/17 at 08:38; Status DC Lisinopril (Prinivil) 10 mg ONCE ONCE PO Last administered on 06/19/17t 12:03 ; Start 06/19/17 at 11:30; Stop 06/19/17 at 11:59; Status DC Nifedipine (Procardia Xl) 90 mg DAILY PO Last administered on 07/23/17at 08:22; Start 06/20/17 at 09:00; Status Future Hold Hydralazine HCl (Apresoline) 25 mg Q8HR PO Last administered on 07/26/17at 06:26 ; Start 06/21/17 at 22:00; Status Future Hold Benztropine Mesylate (Cogentin) 1 mg Q12H PRN PO EXTRA PYRAMIDAL SYMPTOMS; Start 07/16/17 at 11:45; Status Future Hold Benztropine Mesylate (Cogentin Inj) 1 mg Q12H PRN IM EPS, unable to take PO; Start 07/16/17 at 11:45; Status Future Hold Pharmacy Profile Note 0 ml @ 0 mls/hr UNSCH OTHER ; Start 07/23/17 at 20:15; Stop 07/24/17 at 16:31; Status DC Piperacillin Sod/ Tazobactam Sod 100 ml @ 200 mls/hr Q6H IV ; Start 07/23/17 at 21:00; Stop 07/24/17 at 03:45; Status DC Vancomycin HCl 1000 mg/Sodium Chloride 250 ml @ 250 mls/hr Q12H IV ; Start 07/23 at 21:00; Stop 07/24/17 at 03:48; Status DC Miscellaneous Information SPECIFIC LAB TO BE ... ONCE ONCE .XX ; Start 07/25 at 15:45; Stop 07/25/17 at 15:46; Status Cancel Piperacillin Sod/ Tazobactam Sod 100 ml @ 200 mls/hr Q6H IV ; Start 07/24/17 at 03:45; Status Cancel Piperacillin Sod/ Tazobactam Sod 100 ml @ 200 mls/hr Q6H IV Last administered on 07/24/17at 11:56; Start 07/24/17 at 06:00; Stop 07/24/17 at 16:31; Status DC Vancomycin HCl 1000 mg/Sodium Chloride 250 ml @ 250 mls/hr Q12H IV Last administered on 07/24/17at 14:26; Start 07/24/17 at 04:00; Stop 07/24/17 at 16:31; Status DC Lisinopril (Prinivil) 10 mg DAILY PO ; Start 07/25/17 at 09:45; Stop 07/26/17 at 08:36; Status DC Lisinopril (Prinivil) 5 mg DAILY PO Last administered on 07/26/17at 10:47; Start 07/26/17 at 09:00; Status Future Hold Haloperidol Lactate (Haldol Inj) 5 mg STAT STAT IM ; Start 08/04/17 at 11:00; Stop 08/04/17 at 11:01; Status DC Lorazepam (Ativan Inj) 2 mg STAT STAT IM ; Start 08/04/17 at 11:01; Stop at 11:02; Status DC Sodium Chloride 1,000 ml @ 100 mls/hr Q10H IV ; Start 08/04/17 at 13:30; Stop 08/04/17 at 16:04; Status DC Haloperidol (Haldol) 5 mg BID PO Last administered on 08/08/17at 09:00; Start at 21:00; Stop 08/08/17 at 12:26; Status DC Haloperidol Lactate (Haldol Inj) 5 mg BID IM ; Start 08/06/17 at 21:00 Haloperidol (Haldol) 5 mg DAILY PO Last administered on 08/09/17at 11:03; Start 08/09/17 at 09:00; Stop 08/09/17 at 14:01; Status DC Haloperidol (Haldol) 10 mg HS PO Last administered on 08/08/17at 21:16; Start at 21:00; Stop 08/09/17 at 14:01; Status DC Diatrizoate Meglum/ Diatrizoate Sod ( Gastroview Liq) 18 ml ONCE ONCE PO ; Start 08/08/17 at 14:30; Stop 08/08/17 at 14:31; Status DC Iohexol (Omnipaque 350 Inj) 90 ml STK-MED ONCE IVCONTRAST Last administered on 08/08/17at 20:25; Start 08/08/17 at 20:25; Stop 08/08/17 at 20:26; Status DC Haloperidol (Haldol) 10 mg BID PO Last administered on 08/12/17at 21:44; Start 08/09/17 at 21:00 Nystatin (Mycostatin Liq) 5 ml QID SWISH-SWAL Last administered on 08/12/17at 21:43; Start 08/11/17 at 13:00 A/P Problem List: (1) Hypertension ICD Code: I10 - Essential (primary) hypertension Status: Chronic (2) HIV (human immunodeficiency virus infection) ICD Code: Z21 - Asymptomatic human immunodeficiency virus [HIV] infection status Status: Chronic (3) Viral rash ICD Code: B09 - Unspecified viral infection characterized by skin and mucous membrane lesions Status: Resolved Assessment and Plan Patient is a 61-year-old male with primary medical history of HTN, HIV, bipolar , schizoaffective disorder who came into the hospital under [place] act for psychiatric evaluation. Per review of records [place] act report patient has absent temporal lobe syndrome, bipolar disorder, schizophrenia who has been having weight loss and poor hygiene sleeping in the park and restrooms. Patient has been combative to his caregiver. He is now admitted to inpatient psychiatry unit for further evaluation. Consulted for medical management. BiPolar disorder, schizophrenia - Managed by psychiatry team HTN, uncontrolled - Noncompliance behavior. As per review of records has not been taking any of his medications, approximately about a decent go left his brother's home and lives in restrooms and [place]. - BLOOD PRESSURE MEDS ON HOLD-- ALL BLOOD PRESSURE MEDICATIONS ON HOLD AT THIS TIME BP REMAINS STABLE - Monitor BP trend. Will not drastically drop his blood pressure. Noncompliance, HIV Hep C, history - Continue acyclovir 800 mg daily- CURRENTLY NOT TAKING, Odefsey ON HOLD DUE TO POOR COMPLIANCE - Counseled for compliance Needs to take his medications WHEN HE LEAVES THE HOSPITAL U tox positive for marijuana use. Labs have been reviewed, LEUKOCYTOSIS - FOLLOW LABS DVT prop ambulatory WILL FOLLOW BLOOD PRESSURES Fever--RESOLVED Generalized blanching erythema-- IMPROVED --REFUSED BIOPSIES- ID AND GENERAL SURGERY SIGNED OFF Possible viral exanthem pain HIV - patient on Odefsey 1 tab daily for HIV but has not received since this admission due to no availability at our hospital- VIRAL LOADS ARE JANE HIGH- NOT A GOOD CANDIDATE TO RESTART HERE IN HOSPITAL Bipolar disorder/schizophrenia management per psychiatry. Hypertension- Elevated velocities in the proximal and mid right renal artery; Nonvisualization of the left mid renal artery with elevated velocity in the distal portion of the renal artery; Echogenic kidneys characteristic of medical renal disease. Hepatitis C Oral thrush, nystatin, however refusing medications Discharge Planning WILL FOLLOW BLOOD PRESSURES AND LABS Problem Qualifiers (1) Hypertension: Qualified Codes: I10 - Essential (primary) hypertension Leonardo Spaulding DO Aug 13, 2017 10:06
[2017-08-13] MEDS: HALOPERIDOL 10 MG TAB PO SCH ×2 (10:32→21:00)
--- NOTE | 2017-08-13 17:18 | HHI.PYPN ---
Subjective Remarks Patient seen for follow-up, chart reviewed. Discussion she staff reported the patient noted to be drinking a lot of fluids. Patient was seen sitting on hospital bed, calm and cooperative with interview. Patient states feeling "alright" denies any physical symptoms at this time noted the rash has been improving. Patient continues with persistent neurologist delusions along with auditory hallucinations despite treatment. Review of Systems Except as stated in HPI: all other systems reviewed are Neg Mental Status Examination Appearance: Disheveled, Other (noted with generalized rash) Consciousness: Alert Orientation: Person, Place (at least) Motor Activity: Normal gait, Other Speech: Unremarkable Language: Adequate Fund of Knowledge: Adequate Attention and Concentration: Inadequate Memory: Unremarkable Mood: Appropriate Affect: Appropriate Thought Process & Associations: Linear Thought Content: Bizarre thinking, Hallucinations, Delusional Hallucination Type: Auditory Delusion Type: Bizarre, Paranoid, Other (lutheran) Suicidal Ideation: No Suicidal Plan: No Suicidal Intention: No Homicidal Ideation: No Homicidal Plan: No Homicidal Intention: No Insight: Poor Judgment: Poor Results Labs Date/Time Source Procedure Growth Status 07/23/17 20:14 Blood Peripheral Aerobic Blood Culture - Final NO GROWTH IN 5 DAYS Complete 07/23/17 20:14 Anaerobic Blood Culture - Final Staphylococcus Epidermidis Complete Vitals/IOs Vital Signs Date Time Temp Pulse Resp B/P (MAP) Pulse Ox O2 Delivery O2 Flow Rate FiO2 08/13/17 06:00 97.9 106 18 135/85 (102) 98 Intake and Output 08/13/17 08/13/17 08/14/17 08:00 16:00 00:00 Intake Total 720 ml 1200 ml Balance 720 ml 1200 ml Assessment & Plan Problem List: (1) Psychotic disorder ICD Codes: F29 - Unspecified psychosis not due to a substance or known physiological condition Status: Acute Assessment & Plan Patient at this time continues with persistent lutheran delusions or preoccupations along with auditory hallucinations regarding the same. Patient continues to comply with psychotropic medications but denying antihypertensives at this time. Staff to continue to monitor by mouth intake of fluids. [facility] No behavioral dyscontrol recently. Discharge planning in progress Justification for Cont. Inpt. At risk for further decompensation at lower level of care Discharge Planning [facility] Problem Qualifiers (1) Psychotic disorder: Qualified Codes: F23 - Brief psychotic disorder Jhoan Tabares MD Aug 13, 2017 17:18
[2017-08-13 17:51] VITALS: BP 131/91; PULSE 113; RESP 17; TEMP 97.5; O2SAT 99
--- NOTE | 2017-08-13 20:47 | PD.ONC.PN ---
Subjective Subjective Remarks has improvement in peripheral rash still delusional does not want to be on antiviral therapy for HIV flow cytometry reviewed reversed CD4:CD8 ratios --likely as result of HIV T-cell clonal study pending I suspect this would be likely polyclonal expansion no further recommendations at this time Objective Data Date Time Temp Pulse Resp B/P (MAP) Pulse Ox O2 Delivery O2 Flow Rate FiO2 08/13/17 17:51 97.5 113 17 131/91 (104) 99 08/13/17 06:00 97.9 106 18 135/85 (102) 98 08/13/17 08/13/17 08/13/17 07:00 15:00 23:00 Intake Total 720 ml 1200 ml 240 ml Balance 720 ml 1200 ml 240 ml Result Diagram: 08/11/17 1026 08/10/17 0650 Administered Medications Medications (Trade) Dose Ordered Sig/Zina Route PRN Reason Start Time Stop Time Status Last Admin Dose Admin Lorazepam (Ativan) 1 mg Q6H PRN PO MODERATE TO SEVERE ANXIETY 06/12/17 15:45 Future Hold 07/25/17 20:55 Acetaminophen (Tylenol) 650 mg Q4H PRN PO Pain 1-5 or Temp >101F 06/12/17 15:45 Future Hold 07/23/17 18:04 Clonidine (Catapres) 0.2 mg Q6H PRN PO SBP>160, DBP>90 06/15/17 12:30 Future Hold 06/21/17 17:22 Metoprolol Succinate (Toprol Xl) 100 mg DAILY PO 06/16/17 09:00 Future Hold 07/26/17 10:47 Nifedipine (Procardia Xl) 90 mg DAILY PO 06/20/17 09:00 Future Hold 07/23/17 08:22 Hydralazine HCl (Apresoline) 25 mg Q8HR PO 06/21/17 22:00 Future Hold 07/26/17 06:26 Lisinopril (Prinivil) 5 mg DAILY PO 07/26/17 09:00 Future Hold 07/26/17 10:47 Haloperidol (Haldol) 10 mg BID PO 08/09/17 21:00 08/13/17 10:32 Nystatin (Mycostatin Liq) 5 ml QID SWISH-SWAL 08/11/17 13:00 08/12/17 21:43 Objective Remarks GENERAL: nad SKIN: Warm and dry. LYMPHATIC: No adenopathy. CARDIOVASCULAR: Regular rate and rhythm without murmurs. RESPIRATORY: Breath sounds equal bilaterally. No accessory muscle use. GASTROINTESTINAL: Abdomen soft, non-tender, nondistended. EXTREMITIES: No cyanosis, or edema. Assessment/Plan Problem List: (1) Lymphocytosis ICD Codes: D72.820 - Lymphocytosis (symptomatic) Plan: --differential includes underlying reactive process from infection such as HIV and viral hepatitis from hep C vs underlying lymphoproliferative disorder such as CLL (less likely) --will obtain peripheral smear, flow cytometry, CT of chest abdomen and pelvis. (2) HIV (human immunodeficiency virus infection) ICD Codes: Z21 - Asymptomatic human immunodeficiency virus [HIV] infection status Status: Chronic (3) Viral rash ICD Codes: B09 - Unspecified viral infection characterized by skin and mucous membrane lesions Status: Resolved Assessment 61y/o male admitted to med/psych with psychosis. Oncology consulted for lymphocytosis. history of bipolar disorder and schizophrenia history of HIV who is currently off his HAART therapy. absent temporal lobe syndrome. history of cannabis use. Plan Lymphocytosis likely due to florid HIV infection and Hep C awaiting T-cell rearrangement studies Dusty Mattson MD Aug 13, 2017 20:47
[2017-08-14 05:53] VITALS: BP 144/93; PULSE 100; RESP 16; TEMP 98.2; O2SAT 98
[2017-08-14 08:20] LABS: BASOPHIL # 0.1 TH/MM3 (0-0.2); BASOPHIL % 0.6 % (0.0-2.0); EOSINOPHIL # 0.3 TH/MM3 (0-0.4); EOSINOPHIL % 1.2 % (0.0-4.0); HEMATOCRIT 42.5 % (39.0-51.0); HEMOGLOBIN 14.7 GM/DL (13.0-17.0); LYMPHOCYTE # 16.5 TH/MM3 (1.0-4.8); MEAN CELL VOLUME 85.9 FL (80.0-100.0); MEAN CORPUSCULAR HEMOGLOBIN 29.7 PG (27.0-34.0); MEAN CORPUSCULAR HGB CONC 34.6 % (32.0-36.0); MEAN PLATELET VOLUME 7.9 FL (7.0-11.0); MONOCYTE # 1.6 TH/MM3 (0-0.9); NEUT % 21.2 % (16.0-70.0); PLATELET COUNT 317 TH/MM3 (150-450); RED BLOOD COUNT 4.94 MIL/MM3 (4.50-5.90); RED CELL DISTRIBUTION WIDTH 14.9 % (11.6-17.2); WHITE BLOOD COUNT 23.6 TH/MM3 (4.0-11.0)
--- NOTE | 2017-08-14 08:30 | HHI.PYPN ---
Subjective Remarks Patient seen for follow-up, chart reviewed. Discussion or staff reported patient continues to take psychotropic medications been noted to be seclusive and improve and rash. She was found at nurses station asking for juice and water noted to be, cooperative interview today. Patient states that he is feeling "excellent" stated that he spoke with a medical doctor yesterday about his HIV status and mentions that his HIV meds are the cure for AIDS. Patient continued with yazidism delusions of [place] curing AIDS along with auditory hallucinations of these yazidism figures. Patient encouraged to participate in groups activities which she was reluctant to do but agreed to go to one group later today. Patient also was encouraged to be mindful of the amount of fluids he isn't taking due to concerns of possible electrolyte imbalances which he acknowledged. Review of Systems Except as stated in HPI: all other systems reviewed are Neg Mental Status Examination Appearance: Disheveled, Other (noted with generalized rash) Consciousness: Alert Orientation: Person, Place (at least) Motor Activity: Normal gait, Other Speech: Unremarkable Language: Adequate Fund of Knowledge: Adequate Attention and Concentration: Inadequate Memory: Unremarkable Mood: Appropriate, Other ("excellent") Affect: Appropriate Thought Process & Associations: Linear Thought Content: Bizarre thinking, Hallucinations, Delusional Hallucination Type: Auditory Delusion Type: Bizarre, Paranoid, Other (yazidism) Suicidal Ideation: No Suicidal Plan: No Suicidal Intention: No Homicidal Ideation: No Homicidal Plan: No Homicidal Intention: No Insight: Poor Judgment: Poor Results Labs Labs reviewed Test 08/14/17 07:44 White Blood Count 23.6 TH/MM3 Red Blood Count 4.94 MIL/MM3 Hemoglobin 14.7 GM/DL Hematocrit 42.5 % Mean Corpuscular Volume 85.9 FL Mean Corpuscular Hemoglobin 29.7 PG Mean Corpuscular Hemoglobin Concent 34.6 % Red Cell Distribution Width 14.9 % Platelet Count 317 TH/MM3 Mean Platelet Volume 7.9 FL Neutrophils (%) (Auto) 21.2 % Lymphocytes (%) (Auto) 70.0 % Monocytes (%) (Auto) 7.0 % Eosinophils (%) (Auto) 1.2 % Basophils (%) (Auto) 0.6 % Neutrophils # (Auto) 5.0 TH/MM3 Lymphocytes # (Auto) 16.5 TH/MM3 Monocytes # (Auto) 1.6 TH/MM3 Eosinophils # (Auto) 0.3 TH/MM3 Basophils # (Auto) 0.1 TH/MM3 CBC Comment AUTO DIFF Date/Time Source Procedure Growth Status 07/23/17 20:14 Blood Peripheral Aerobic Blood Culture - Final NO GROWTH IN 5 DAYS Complete 07/23/17 20:14 Anaerobic Blood Culture - Final Staphylococcus Epidermidis Complete Vitals/IOs Vital Signs Date Time Temp Pulse Resp B/P (MAP) Pulse Ox O2 Delivery O2 Flow Rate FiO2 08/14/17 05:53 98.2 100 16 144/93 (110) 98 Intake and Output 08/14/17 08/14/17 08/15/17 08:00 16:00 00:00 Intake Total 720 ml Balance 720 ml Assessment & Plan Problem List: (1) Psychotic disorder ICD Codes: F29 - Unspecified psychosis not due to a substance or known physiological condition Status: Acute Assessment & Plan Patient at this time noted to have improvement rash, but to be less irritable, compliant with medications and continues with yazidism delusions as well as auditory hallucinations of the same. Continue current treatment. Monitor by mouth intake of fluids. Continue recommendations as per primary medical team. Patient encouraged to participate groups and activities. Discharge planning in progress Justification for Cont. Inpt. At risk for decompensation at lower level of care [facility] Problem Qualifiers (1) Psychotic disorder: Qualified Codes: F23 - Brief psychotic disorder Jhoan Tabares MD Aug 14, 2017 08:30
[2017-08-14 08:45] LABS: ALBUMIN 3.1 GM/DL (3.4-5.0); AST (GOT) 44 U/L (15-37); BICARBONATE 30.3 MEQ/L (21.0-32.0); BLOOD UREA NITROGEN 13 MG/DL (7-18); CALCIUM 9.2 MG/DL (8.5-10.1); CHLORIDE 102 MEQ/L (98-107); CREATININE 0.99 MG/DL (0.60-1.30); GLOMERULAR FILTRATION RATE 77 ML/MIN (>89); GLUCOSE,RANDOM 117 MG/DL (74-106); MAGNESIUM 2.3 MG/DL (1.5-2.5); SODIUM (NA) 137 MEQ/L (136-145)
[2017-08-14 08:47] LABS: ALT (GPT) 71 U/L (12-78); PHOSPHORUS 3.1 MG/DL (2.5-4.9)
[2017-08-14 08:49] LABS: ALKALINE PHOSPHATASE 344 U/L (45-117); TOTAL BILIRUBIN ADULT 0.5 MG/DL (0.2-1.0); TOTAL PROTEIN 6.7 GM/DL (6.4-8.2)
[2017-08-14] MEDS: HALOPERIDOL LACTATE 5 MG/ML AMP IM SCH ×2 (09:00→20:33)
[2017-08-14 09:04] LABS: BASOPHILS 1 % (0-2); LYMPHOCYTES 70 % (9-44); MONOCYTES 1 % (0-8); NEUTROPHIL # MANUAL DIFF 6.4 TH/MM3 (1.8-7.7); POLYS (SEG NEUTROPHILS) 27 % (16-70)
[2017-08-14 09:06] LABS: OVALOCYTES 1+ (NORMAL)
[2017-08-14] MEDS: HALOPERIDOL 10 MG TAB PO SCH ×2 (09:10→20:33)
[2017-08-14] MEDS: NYSTATIN SUSP 500,000 U/5 ML CUP SWISH-SWAL SCH ×4 (09:10→20:33)
--- NOTE | 2017-08-14 09:24 | HHI.PR ---
Subjective Remarks Patient is still delusional. Reports that he is feeling great and his HIV is cured. Objective Vitals Vital Signs Date Time Temp Pulse Resp B/P (MAP) Pulse Ox O2 Delivery O2 Flow Rate FiO2 08/14/17 05:53 98.2 100 16 144/93 (110) 98 08/13/17 17:51 97.5 113 17 131/91 (104) 99 I/O 08/13/17 08/13/17 08/13/17 08/14/17 08/14/17 08/14/17 07:00 15:00 23:00 07:00 15:00 23:00 Intake Total 720 ml 1200 ml 1440 ml 720 ml 600 ml Balance 720 ml 1200 ml 1440 ml 720 ml 600 ml Intake Oral 720 ml 1200 ml 1440 ml 720 ml 600 ml # Voids 5 4 2 Result Diagram: 08/14/17 0744 08/14/1744 Objective Remarks GENERAL: No acute distress. CARDIOVASCULAR: Regular rate and rhythm. RESPIRATORY: No accessory muscle use. Clear to auscultation. Breath sounds equal bilaterally. GASTROINTESTINAL: Abdomen soft, non-tender, nondistended. MUSCULOSKELETAL: Extremities without clubbing, cyanosis, or edema. No obvious deformities. NEUROLOGICAL: Awake and alert. Normal speech. PSYCHIATRIC: Delusional, religiously pre occupied. Procedures NONE A/P Problem List: (1) Hypertension ICD Code: I10 - Essential (primary) hypertension Status: Chronic (2) HIV (human immunodeficiency virus infection) ICD Code: Z21 - Asymptomatic human immunodeficiency virus [HIV] infection status Status: Chronic (3) Viral rash ICD Code: B09 - Unspecified viral infection characterized by skin and mucous membrane lesions Status: Resolved Assessment and Plan 61-year-old male with primary medical history of HTN, HIV, bipolar, schizoaffective disorder who came into the hospital under [place] act for psychiatric evaluation. Per review of records [place] act report patient has absent temporal lobe syndrome, bipolar disorder, schizophrenia who has been having weight loss and poor hygiene sleeping in the park and restrooms. Patient has been combative to his caregiver. He is now admitted to inpatient psychiatry unit for further evaluation. Hospitalist following for medical management. BiPolar disorder, schizophrenia - Managed by psychiatry team HTN, stable - Noncompliance behavior. As per review of records has not been taking any of his medications - BP meds on hold. - Monitor BP trend. Fever and rash: Possible viral exanthem: - Rash revolving. Followed by ID. Not on antibiotics. Pt refused biopsy. Rash resolving. Oral thrush: nystatin ordered, however refusing medications Noncompliance, HIV Hep C, history - Patient is refusing anti HIV meds. He states he will consider restarting outpatient. Lymphocytosis: Hematology followed the patient. Likely due to HIV and Hep C. U tox positive for marijuana use: Patient counseled. DVT prop ambulatory Problem Qualifiers (1) Hypertension: Qualified Codes: I10 - Essential (primary) hypertension Meredith Berman MD Aug 14, 2017 09:23
--- NOTE | 2017-08-14 09:53 | PD.TTN ---
Patient Problems 1. Discharge planning 2. Medication compliance 3. Knowledge deficit 4. Lack of coping skills Progress Toward Goals Provider Present: Dr. Master Cole, Dr. Binu Tabares Provider Input: 08/13 Patient is still very psychotic and in need for psychiatric and medical stablization 08/08 patient is now taking his psychotropic meds but no medical meds - he is not medically cleared and is still awaiting on medical work up results 07/31/17 patient is now refusing all meds and treatment 07/23/2017 - Dr. Tabares reports the patient remains compliant with medications and without behavoral disturbance. 07/18/2017 - Patient remains a placement issue, compliant with medications, and without behavioral disturbance. 07/02/17 Patient remains psychotic and delusional. 06/27/2017 Patient will require placement in an Assisted Living Facility. He has a histroy of TBI, and fixed delusions that are oriental orthodox nature. 06/20/2017; patient is at the highest dosage of medication and might need to have an additional med added to level off his mood/behavior. Patient is new to unit and will be starting on a medication regiment. Will monitor progress of patient throughout the week. 06/18/2017 - Dr. Tabares reports the patient would like placement in an [facility]. 06/25 - Patient will continue to be looked for in regards to placement. Not behavioral issues on the unit. 07/04/17 Patient continues to meet criteria. Patient has court tomorrow Nurse(s) Present: TONY Lara Nurse(s) Input: 06/20/2017; Patient is taking his medication, eating meals; however patient displays manic behavior, up doing the night hours with limited sleep. 06/25 patient is noted to have no behavioral issues on the unit and has been compliant with medications. denies side effects 07/04/17 Patient's nurse Sara reports patient is religioulsy preoccupied, continues to practice ballet exercies. Medication compliant. Patient is calm and cooperative. Psychiatric Counselors Present: Jenny Schroeder LCSW, Marbella Britton, [facility], Simin Trejo, [facility], Linda Chandler, [facility] Psych Therapist Input: 08/13 very delusional\ he agrees to go to outside and has been walking hallway more often, he hates the TV because it has bad intentions and therefore sits without anything by self in room often, encouraged to read but he appears to deny any activity as it triggers more delusions - he is on the State list for [facility] however counselors continue working on a fdc placement which could accomodate him at this time many places have denied him again 08/08 [facility] but may be able to go to a placement if one is suitable and able to meet needs 07/31/17 patient is delusional and medically not stable 07/23/2017 - Patient remains pleasant, religiously preoccupied, and delusional. 07/18/2017 - Counselor reported that the patient remains delusional and religiously preoccupied. [facility]. 07/02/17 Patient remains medication compliant and continues to isolate. He does not saocialize with peers or staff. 06/27/2017 Counselor will continue to search for approparit placement for this patient, 06/20/2017 Counselor will begin the process for finding appropriate placement Counselor will be in contact with family memebers to recieve collateral information in regards to patient's progress. 06-18-2017 - Counselor has faxed patient's packet to [facility] for [facility] review. Counselor called [facility] and there are no beds available at this time. 06/25 patient is cooperative and calm on the unit and counselor will look for placement. Patient does not socialize with peers but is pleasant. 07/04/17 Patient is medication compliant. Patient presents calm, cooperative, affect appropriate. patient's speech is clear, and organized. Patient does present religiously preoccupied. Patient isolates, on unit Group Spec/RT/OT/SCHMIDT Present: Bel Velázquez, GPS, BRAYAN Restrepo, Kane Solis, OT, BRAYAN Silva Group Spec/RT/OT/SCHMIDT Input: 08/13 isolates to room and does not attend groups 08/08 patient is not attending groups and not medically cleared and on contact precautions 07/1617 does not attend 07/23/2017 - Patient refuses to attend groups. 07/18/2017 - Patient refuses to attend groups. 07/02/17 Patient isolates to his room and the only group he has attended so far is coffee shop. 06/27/2017 Patient refuses most groups, although he will occasionally attemd fresh air and snack time. 06/20/2017: Attends most groups, very cooperate, very hyperverbal Patient is new to unit and has not attend groups yet. 06-18-2017 - Patient attends select groups and his behavior is appropriate. 07/04/17 Patient attends exercise occasionally Discharge Plan SMA Patient will be discharged to an appropriate [facility] when accepted. Documentation Scribe: Simin Trejo [facility] Date Resolved: Jul 23, 2017 Jenny Schroeder LCSW Aug 14, 2017 09:53
[2017-08-14 18:05] VITALS: BP 135/84; PULSE 95; RESP 18; TEMP 98.2
[2017-08-15 05:26] VITALS: BP 140/70; PULSE 94; RESP 16; TEMP 97.9; O2SAT 97
[2017-08-15] MEDS: HALOPERIDOL 10 MG TAB PO SCH ×2 (08:29→20:33)
[2017-08-15] MEDS: NYSTATIN SUSP 500,000 U/5 ML CUP SWISH-SWAL SCH ×4 (08:29→20:33)
[2017-08-15] MEDS: HALOPERIDOL LACTATE 5 MG/ML AMP IM SCH ×2 (08:36→20:43)
--- NOTE | 2017-08-15 09:06 | HHI.PR ---
Subjective Remarks Patient still religiously pre occupied. No new issues. Objective Vitals Vital Signs Date Time Temp Pulse Resp B/P (MAP) Pulse Ox O2 Delivery O2 Flow Rate FiO2 08/15/17 05:26 97.9 94 16 140/70 (93) 97 08/14/17 18:05 98.2 95 18 135/84 (101) I/O 08/14/17 08/14/17 08/14/17 08/15/17 08/15/17 08/15/17 07:00 15:00 23:00 07:00 15:00 23:00 Intake Total 720 ml 1680 ml 840 ml 240 ml Balance 720 ml 1680 ml 840 ml 240 ml Intake Oral 720 ml 1680 ml 840 ml 240 ml # Voids 2 3 2 Result Diagram: 08/14/17 0744 08/14/17 0744 Objective Remarks GENERAL: No acute distress. CARDIOVASCULAR: Regular rate and rhythm. RESPIRATORY: No accessory muscle use. Clear to auscultation. Breath sounds equal bilaterally. GASTROINTESTINAL: Abdomen soft, non-tender, nondistended. MUSCULOSKELETAL: Extremities without clubbing, cyanosis, or edema. No obvious deformities. NEUROLOGICAL: Awake and alert. Normal speech. PSYCHIATRIC: Delusional, religiously pre occupied. Procedures NONE A/P Problem List: (1) Hypertension ICD Code: I10 - Essential (primary) hypertension Status: Chronic (2) HIV (human immunodeficiency virus infection) ICD Code: Z21 - Asymptomatic human immunodeficiency virus [HIV] infection status Status: Chronic (3) Viral rash ICD Code: B09 - Unspecified viral infection characterized by skin and mucous membrane lesions Status: Resolved Assessment and Plan 61-year-old male with primary medical history of HTN, HIV, bipolar, schizoaffective disorder who came into the hospital under [place] act for psychiatric evaluation. Per review of records [place] act report patient has absent temporal lobe syndrome, bipolar disorder, schizophrenia who has been having weight loss and poor hygiene sleeping in the park and restrooms. Patient has been combative to his caregiver. He is now admitted to inpatient psychiatry unit for further evaluation. Hospitalist following for medical management. BiPolar disorder, schizophrenia - Managed by psychiatry team HTN, stable - Noncompliance behavior. As per review of records has not been taking any of his medications - BP meds on hold. - BP has been acceptable Fever and rash: Possible viral exanthem: - Rash revolving. Followed by ID. Not on antibiotics. Pt refused biopsy. Rash resolving. Oral thrush: nystatin ordered, however refusing medications Noncompliance, HIV Hep C, history - Patient is refusing anti HIV meds. He states he will consider restarting outpatient. Lymphocytosis: Hematology followed the patient. Likely due to HIV and Hep C. U tox positive for marijuana use: Patient counseled. DVT prop ambulatory Discharge Planning Per psychiatry. Medically cleared for regular Psych. Recommend that he restart his HIV meds and follow up outpatient upon discharge. Problem Qualifiers (1) Hypertension: Qualified Codes: I10 - Essential (primary) hypertension Meredith Berman MD Aug 15, 2017 09:06
--- NOTE | 2017-08-15 10:53 | HHI.PYPN ---
Subjective Remarks Patient seen for follow-up, chart reviewed. Discussion she staff reported the patient continues to be noted to ask for fluids throughout the day. Patient found sitting in hospital bed, cooperative. Patient states he had an exercise this morning and was asking for because he is now thirsty due to his exercises. Patient's continues with advent delusions stating that God is with him and they got has been with him since accretion of time. Patient continues with auditory hallucinations of [place], motel (in his right foot), "my re examiner and fireball" which he states is in his left ear. Patient denies any physical symptoms at this time. Review of Systems Except as stated in HPI: all other systems reviewed are Neg Mental Status Examination Appearance: Disheveled, Other (noted with generalized rash) Consciousness: Alert Orientation: Person, Place (at least) Motor Activity: Normal gait, Other Speech: Unremarkable Language: Adequate Fund of Knowledge: Adequate Attention and Concentration: Inadequate Memory: Unremarkable Mood: Appropriate, Other ("okay") Affect: Appropriate Thought Process & Associations: Linear Thought Content: Bizarre thinking, Hallucinations, Delusional Hallucination Type: Auditory Delusion Type: Bizarre, Paranoid, Other (advent) Suicidal Ideation: No Suicidal Plan: No Suicidal Intention: No Homicidal Ideation: No Homicidal Plan: No Homicidal Intention: No Insight: Poor Judgment: Poor Results Labs Date/Time Source Procedure Growth Status 07/23/17 20:14 Blood Peripheral Aerobic Blood Culture - Final NO GROWTH IN 5 DAYS Complete 07/23/17 20:14 Anaerobic Blood Culture - Final Staphylococcus Epidermidis Complete Vitals/IOs Vital Signs Date Time Temp Pulse Resp B/P (MAP) Pulse Ox O2 Delivery O2 Flow Rate FiO2 08/15/17 05:26 97.9 94 16 140/70 (93) 97 Intake and Output 08/15/17 08/15/17 08/16/17 08:00 16:00 00:00 Intake Total 240 ml Balance 240 ml Assessment & Plan Problem List: (1) Psychotic disorder ICD Codes: F29 - Unspecified psychosis not due to a substance or known physiological condition Status: Acute Assessment & Plan Patient this time continues with good behavioral control, no episodes of agitation, noted to be calm and cooperative staff. Patient continues to be compliant with psychotropic medications. Continue current treatment. Continue monitor water behavior. Discharge planning in progress Justification for Cont. Inpt. At risk for the decompensation lower level of care [facility] Problem Qualifiers (1) Psychotic disorder: Qualified Codes: F23 - Brief psychotic disorder Jhoan Tabares MD Aug 15, 2017 10:53
[2017-08-15 18:01] VITALS: BP 143/76; PULSE 100; RESP 17; TEMP 98.3; O2SAT 98
[2017-08-16 05:40] VITALS: BP 151/96; PULSE 100; RESP 18; TEMP 97.3
[2017-08-16] MEDS: HALOPERIDOL LACTATE 5 MG/ML AMP IM SCH ×2 (09:00→20:10)
[2017-08-16] MEDS: NYSTATIN SUSP 500,000 U/5 ML CUP SWISH-SWAL SCH ×4 (09:50→20:09)
[2017-08-16] MEDS: HALOPERIDOL 10 MG TAB PO SCH ×2 (09:50→20:09)
--- NOTE | 2017-08-16 11:07 | HHI.PYPN ---
Subjective Remarks Patient seen for follow up; chart reviewed. Discussion with nursing reported patient has had no change and has been more cognizant of how much fluid intake he has been drinking. Patient found lying in hospital bed, cooperative. He reports sleeping well, denies any physical complaints, no difficulty bowel movement. She continued with taoist. The patient and delusions as well as auditory hallucinations for the same. She denies any SI, HI Review of Systems Except as stated in HPI: all other systems reviewed are Neg Mental Status Examination Appearance: Appropriate Consciousness: Alert Orientation: Person, Place (at least) Motor Activity: Normal gait, Other Speech: Unremarkable Language: Adequate Fund of Knowledge: Adequate Attention and Concentration: Inadequate Memory: Unremarkable Mood: Appropriate, Other ("excellent") Affect: Appropriate Thought Process & Associations: Linear Thought Content: Bizarre thinking, Hallucinations, Delusional Hallucination Type: Auditory Delusion Type: Bizarre, Paranoid, Other (taoist) Suicidal Ideation: No Suicidal Plan: No Suicidal Intention: No Homicidal Ideation: No Homicidal Plan: No Homicidal Intention: No Insight: Poor Judgment: Poor Results Labs Date/Time Source Procedure Growth Status 07/23/17 20:14 Blood Peripheral Aerobic Blood Culture - Final NO GROWTH IN 5 DAYS Complete 07/23/17 20:14 Anaerobic Blood Culture - Final Staphylococcus Epidermidis Complete Vitals/IOs Vital Signs Date Time Temp Pulse Resp B/P (MAP) Pulse Ox O2 Delivery O2 Flow Rate FiO2 08/16/17 05:40 97.3 100 18 151/96 (114) 08/15/17 18:01 98 Intake and Output 08/16/17 08/16/17 08/17/17 08:00 16:00 00:00 Intake Total 960 ml 240 ml Output Total 3 ml Balance 957 ml 240 ml Assessment & Plan Problem List: (1) Psychotic disorder ICD Codes: F29 - Unspecified psychosis not due to a substance or known physiological condition Status: Acute Assessment & Plan Patient with no behavioral disturbances. Comply with psychotropic medications. Continues with taoist delusions and preoccupation as well as auditory hallucinations for the same. Continue current treatment. Continue to monitor fluid intake. Discharge planning in progress Justification for Cont. Inpt. At risk for further decompensation if at lower level of care Discharge Planning [facility] Problem Qualifiers (1) Psychotic disorder: Qualified Codes: F23 - Brief psychotic disorder Jhoan Tabares MDb 1, 2018 11:07
[2017-08-16 18:03] VITALS: BP 137/85; PULSE 86; RESP 16; TEMP 97.9; O2SAT 100
[2017-08-17 04:50] VITALS: BP 122/78; PULSE 93; RESP 16; TEMP 98.3; O2SAT 97
[2017-08-17] MEDS: HALOPERIDOL LACTATE 5 MG/ML AMP IM SCH ×2 (09:00→20:59)
[2017-08-17] MEDS: HALOPERIDOL 10 MG TAB PO SCH ×2 (10:17→20:56)
[2017-08-17] MEDS: NYSTATIN SUSP 500,000 U/5 ML CUP SWISH-SWAL SCH ×4 (10:18→20:56)
--- NOTE | 2017-08-17 10:45 | HHI.PYPN ---
Subjective Remarks Patient seen for follow-up, chart reviewed. Discussion she staff reported patient has had no change was calm and cooperative and compliant with psychotropic medications. Patient was found sitting in hospital bed, cooperative. Patient continues to endorse that "all the same ever since I was created" and continues to report church figures will be communicates with. Patient other physical complaints at this time. Patient reports sleeping well, eating and drinking well, no problems bowel movement. Review of Systems Except as stated in HPI: all other systems reviewed are Neg Mental Status Examination Appearance: Appropriate Consciousness: Alert Orientation: Person, Place (at least) Motor Activity: Normal gait, Other Speech: Unremarkable Language: Adequate Fund of Knowledge: Adequate Attention and Concentration: Inadequate Memory: Unremarkable Mood: Appropriate, Other ("excellent") Affect: Appropriate Thought Process & Associations: Linear Thought Content: Bizarre thinking, Hallucinations, Delusional Hallucination Type: Auditory Delusion Type: Bizarre, Paranoid, Other (church) Suicidal Ideation: No Suicidal Plan: No Suicidal Intention: No Homicidal Ideation: No Homicidal Plan: No Homicidal Intention: No Insight: Poor Judgment: Poor Results Labs Date/Time Source Procedure Growth Status 07/23/17 20:14 Blood Peripheral Aerobic Blood Culture - Final NO GROWTH IN 5 DAYS Complete 07/23/17 20:14 Anaerobic Blood Culture - Final Staphylococcus Epidermidis Complete Vitals/IOs Vital Signs Date Time Temp Pulse Resp B/P (MAP) Pulse Ox O2 Delivery O2 Flow Rate FiO2 08/17/17 04:50 98.3 93 16 122/78 (93) 97 Intake and Output 08/17/17 08/17/17 08/18/17 08:00 16:00 00:00 Intake Total 480 ml 720 ml Balance 480 ml 720 ml Assessment & Plan Problem List: (1) Psychotic disorder ICD Codes: F29 - Unspecified psychosis not due to a substance or known physiological condition Status: Acute Assessment & Plan Use with church delusions and preoccupation and auditory hallucinations for the same. Patient has not had any behavioral disturbances. As patient currently medically clear will be transferred to 2600 unit when bed available. Continue current treatment. Discharge planning in progress Justification for Cont. Inpt. At risk for further decompensation if at lower level of care Discharge Planning senior care or state hospitalization Problem Qualifiers (1) Psychotic disorder: Qualified Codes: F23 - Brief psychotic disorder Jhoan Tabares MD Aug 17, 2017 10:45
--- NOTE | 2017-08-17 10:58 | PD.TTN ---
Patient Problems 1. Discharge planning 2. Medication compliance 3. Knowledge deficit 4. Lack of coping skills Progress Toward Goals Provider Present: Dr. Master Cole, Dr. Binu Tabares Provider Input: 08/17/17 still psychotic and need a safe and stable living arrangement to accomodate his medical and mental health needs 08/13 Patient is still very psychotic and in need for psychiatric and medical stablization 08/08 patient is now taking his psychotropic meds but no medical meds - he is not medically cleared and is still awaiting on medical work up results 07/31/17 patient is now refusing all meds and treatment 07/23/2017 - Dr. Tabares reports the patient remains compliant with medications and without behavoral disturbance. 07/18/2017 - Patient remains a placement issue, compliant with medications, and without behavioral disturbance. 07/02/17 Patient remains psychotic and delusional. 06/27/2017 Patient will require placement in an Assisted Living Facility. He has a histroy of TBI, and fixed delusions that are adventism nature. 06/20/2017; patient is at the highest dosage of medication and might need to have an additional med added to level off his mood/behavior. Patient is new to unit and will be starting on a medication regiment. Will monitor progress of patient throughout the week. 06/18/2017 - Dr. Tabares reports the patient would like placement in an [facility]. 06/25 - Patient will continue to be looked for in regards to placement. Not behavioral issues on the unit. 07/04/17 Patient continues to meet criteria. Patient has court tomorrow Nurse(s) Present: TONY Lara Nurse(s) Input: 06/20/2017; Patient is taking his medication, eating meals; however patient displays manic behavior, up doing the night hours with limited sleep. 06/25 patient is noted to have no behavioral issues on the unit and has been compliant with medications. denies side effects 07/04/17 Patient's nurse Sara reports patient is religioulsy preoccupied, continues to practice ballet exercies. Medication compliant. Patient is calm and cooperative. Psychiatric Counselors Present: Jenny Schroeder MACHINE STUFFER, Marbella Britton, [facility], Simin Trejo, [facility], Linda Chandler, [facility] Psych Therapist Input: 08/17/17 patient remains delusional, grandiose and lacking some insight but is med compliant and agreeing to a placement, once one is found or arranged, discharge counselors Tete are assisting with working with nursing homes and will try [facility] today 08/13 very delusional\ he agrees to go to outside and has been walking hallway more often, he hates the TV because it has bad intentions and therefore sits without anything by self in room often, encouraged to read but he appears to deny any activity as it triggers more delusions - he is on the State list for [facility] however counselors continue working on a moth exterminator placement which could accomodate him at this time many places have denied him again 08/08 patient is referred for [facility] hospital but may be able to go to a placement if one is suitable and able to meet needs 07/31/17 patient is delusional and medically not stable 07/23/2017 - Patient remains pleasant, religiously preoccupied, and delusional. 07/18/2017 - Counselor reported that the patient remains delusional and religiously preoccupied. Patient's [facility], [facility]. 07/02/17 Patient remains medication compliant and continues to isolate. He does not saocialize with peers or staff. 06/27/2017 Counselor will continue to search for approparit placement for this patient, 06/20/2017 Counselor will begin the process for finding appropriate placement Counselor will be in contact with family memebers to recieve collateral information in regards to patient's progress. 06-18-2017 - Counselor has faxed patient's packet to [facility] for admissions review. Counselor called [facility] and there are no beds available at this time. 06/25 patient is cooperative and calm on the unit and counselor will look for placement. Patient does not socialize with peers but is pleasant. 07/04/17 Patient is medication compliant. Patient presents calm, cooperative, affect appropriate. patient's speech is clear, and organized. Patient does present religiously preoccupied. Patient isolates, on unit Group Spec/RT/OT/SCHMIDT Present: Bel Velázquez, GPS, BRAYAN Restrepo, Kane Solis, OT, Zen Gallego, BRAYAN Group Spec/RT/OT/SCHMIDT Input: 08/13 isolates to room and does not attend groups 08/08 patient is not attending groups and not medically cleared and on contact precautions 07/1617 does not attend 07/23/2017 - Patient refuses to attend groups. 07/18/2017 - Patient refuses to attend groups. 07/02/17 Patient isolates to his room and the only group he has attended so far is coffee shop. 06/27/2017 Patient refuses most groups, although he will occasionally attemd fresh air and snack time. 06/20/2017: Attends most groups, very cooperate, very hyperverbal Patient is new to unit and has not attend groups yet. 06-18-2017 - Patient attends select groups and his behavior is appropriate. 07/04/17 Patient attends exercise occasionally Discharge Plan SMA Patient will be discharged to an appropriate HALF-WAY when accepted. Documentation Scribe: Simin Trejo [facility] Date Resolved: Jul 23, 2017 Jenny Schroeder LCSW Aug 17, 2017 10:58
[2017-08-17 18:00] VITALS: BP 140/90; PULSE 99; RESP 16; TEMP 98.1; O2SAT 99
[2017-08-18 06:20] VITALS: BP 142/90; PULSE 103; RESP 16; TEMP 97.7; O2SAT 97
[2017-08-18] MEDS: NYSTATIN SUSP 500,000 U/5 ML CUP SWISH-SWAL SCH ×4 (08:54→21:09)
[2017-08-18] MEDS: HALOPERIDOL 10 MG TAB PO SCH ×2 (08:54→21:09)
[2017-08-18] MEDS: HALOPERIDOL LACTATE 5 MG/ML AMP IM SCH ×2 (08:54→21:00)
--- NOTE | 2017-08-18 14:21 | HHI.PYPN ---
Subjective Remarks Patient was seen and case discussed with nursing. Patient remains baseline psychotic. Various bizarre delusions. Describes his mood today is "happy as can be." Denies suicidal or homicidal ideation. Compliant with medications and behaving well on the unit Mental Status Examination Appearance: Appropriate Consciousness: Alert Orientation: Person, Place (at least) Motor Activity: Normal gait, Other Speech: Unremarkable Language: Adequate Fund of Knowledge: Adequate Attention and Concentration: Inadequate Memory: Unremarkable Mood: Appropriate, Other ("excellent") Affect: Appropriate Thought Process & Associations: Linear Thought Content: Bizarre thinking, Hallucinations, Delusional Hallucination Type: Auditory Delusion Type: Bizarre, Paranoid, Other (orthodoxy) Suicidal Ideation: No Suicidal Plan: No Suicidal Intention: No Homicidal Ideation: No Homicidal Plan: No Homicidal Intention: No Insight: Poor Judgment: Poor Results Labs Date/Time Source Procedure Growth Status 07/23/17 20:14 Blood Peripheral Aerobic Blood Culture - Final NO GROWTH IN 5 DAYS Complete 07/23/17 20:14 Anaerobic Blood Culture - Final Staphylococcus Epidermidis Complete Vitals/IOs Vital Signs Date Time Temp Pulse Resp B/P (MAP) Pulse Ox O2 Delivery O2 Flow Rate FiO2 08/18/17 06:20 97.7 103 16 142/90 (107) 97 Intake and Output 08/18/17 08/18/17 08/19/17 08:00 16:00 00:00 Intake Total 240 ml Balance 240 ml Assessment & Plan Problem List: (1) Psychotic disorder ICD Codes: F29 - Unspecified psychosis not due to a substance or known physiological condition Status: Acute Assessment & Plan Continue current treatment plan Justification for Cont. Inpt. Patient would decompensate in a less restrictive setting Problem Qualifiers (1) Psychotic disorder: Qualified Codes: F23 - Brief psychotic disorder Manny Camacho DO Aug 18, 2017 14:21
[2017-08-18 18:18] VITALS: BP 173/92; PULSE 91; RESP 18; TEMP 97.8; O2SAT 100
[2017-08-19 05:59] VITALS: BP 145/88; PULSE 102; RESP 16; TEMP 98.1; O2SAT 99
[2017-08-19] MEDS: HALOPERIDOL 10 MG TAB PO SCH ×2 (08:49→21:01)
[2017-08-19] MEDS: NYSTATIN SUSP 500,000 U/5 ML CUP SWISH-SWAL SCH ×4 (08:49→21:00)
[2017-08-19] MEDS: HALOPERIDOL LACTATE 5 MG/ML AMP IM SCH ×2 (08:50→21:00)
--- NOTE | 2017-08-19 14:02 | HHI.PYPN ---
Subjective Remarks Patient was seen and case discussed with nursing. Patient remains internally preoccupied. We offered for him to shave that he refused. Appears mildly less psychotic today. Sitting calmly during the interview. Client with his medications and behaving well on the unit Mental Status Examination Appearance: Appropriate Consciousness: Alert Orientation: Person, Place (at least) Motor Activity: Normal gait, Other Speech: Unremarkable Language: Adequate Fund of Knowledge: Adequate Attention and Concentration: Inadequate Memory: Unremarkable Mood: Appropriate, Other ("excellent") Affect: Appropriate Thought Process & Associations: Linear Thought Content: Bizarre thinking, Hallucinations, Delusional Hallucination Type: Auditory Delusion Type: Bizarre, Paranoid, Other (protestant) Suicidal Ideation: No Suicidal Plan: No Suicidal Intention: No Homicidal Ideation: No Homicidal Plan: No Homicidal Intention: No Insight: Poor Judgment: Poor Results Labs Date/Time Source Procedure Growth Status 07/23/17 20:14 Blood Peripheral Aerobic Blood Culture - Final NO GROWTH IN 5 DAYS Complete 07/23/17 20:14 Anaerobic Blood Culture - Final Staphylococcus Epidermidis Complete Vitals/IOs Vital Signs Date Time Temp Pulse Resp B/P (MAP) Pulse Ox O2 Delivery O2 Flow Rate FiO2 08/19/17 05:59 98.1 102 16 145/88 (107) 99 Assessment & Plan Problem List: (1) Psychotic disorder ICD Codes: F29 - Unspecified psychosis not due to a substance or known physiological condition Status: Acute Assessment & Plan Continue current treatment plan Justification for Cont. Inpt. Patient would decompensate in a less restrictive setting Problem Qualifiers (1) Psychotic disorder: Qualified Codes: F23 - Brief psychotic disorder Manny Camacho DO Aug 19, 2017 14:02
[2017-08-19 18:58] VITALS: BP 146/78; PULSE 72; RESP 18; TEMP 98.2; O2SAT 98
[2017-08-20 06:23] VITALS: BP 135/69; PULSE 86; RESP 18; TEMP 98.5; O2SAT 97
[2017-08-20] MEDS: HALOPERIDOL LACTATE 5 MG/ML AMP IM SCH ×2 (07:55→21:00)
[2017-08-20] MEDS: HALOPERIDOL 10 MG TAB PO SCH ×2 (08:18→21:17)
[2017-08-20] MEDS: NYSTATIN SUSP 500,000 U/5 ML CUP SWISH-SWAL SCH ×4 (08:18→21:17)
--- NOTE | 2017-08-20 10:50 | PD.TTN ---
Patient Problems 1. Discharge planning 2. Medication compliance 3. Knowledge deficit 4. Lack of coping skills Progress Toward Goals Provider Present: Dr. Master Cole, Dr. Binu Tabares Provider Input: 08/20/17 patient has been medically cleared, on 2600 unit, would beenfit from placement at high risk for decompensation 08/17/17 still psychotic and need a safe and stable living arrangement to accomodate his medical and mental health needs 08/13 Patient is still very psychotic and in need for psychiatric and medical stablization 08/08 patient is now taking his psychotropic meds but no medical meds - he is not medically cleared and is still awaiting on medical work up results 07/31/17 patient is now refusing all meds and treatment 07/23/2017 - Dr. Tabares reports the patient remains compliant with medications and without behavoral disturbance. 07/18/2017 - Patient remains a placement issue, compliant with medications, and without behavioral disturbance. 07/02/17 Patient remains psychotic and delusional. 06/27/2017 Patient will require placement in an Assisted Living Facility. He has a histroy of TBI, and fixed delusions that are baptism nature. 06/20/2017; patient is at the highest dosage of medication and might need to have an additional med added to level off his mood/behavior. Patient is new to unit and will be starting on a medication regiment. Will monitor progress of patient throughout the week. 06/18/2017 - Dr. Tabares reports the patient would like placement in an PRISON. 06/25 - Patient will continue to be looked for in regards to placement. Not behavioral issues on the unit. 07/04/17 Patient continues to meet criteria. Patient has court tomorrow Nurse(s) Present: TONY Lara Nurse(s) Input: 06/20/2017; Patient is taking his medication, eating meals; however patient displays manic behavior, up doing the night hours with limited sleep. 06/25 patient is noted to have no behavioral issues on the unit and has been compliant with medications. denies side effects 07/04/17 Patient's nurse Sara reports patient is religioulsy preoccupied, continues to practice ballet exercies. Medication compliant. Patient is calm and cooperative. Psychiatric Counselors Present: Jenny Schroeder PSYCHIATRIC MENTAL HEALTH NURSE, Marbella Britton, [facility], Simin Trejo, [facility], Linda Chandler, [facility] Psych Therapist Input: 08/20/17 patient is asking to be discharged to self, but is very delusional and religiously pre-occupied believing Logan will assist him 08/17/17 patient remains delusional, grandiose and lacking some insight but is med compliant and agreeing to a placement, once one is found or arranged, discharge counselors Marbella and Gisselle are assisting with working with nursing homes and will try [facility] today 08/13 very delusional\ he agrees to go to outside and has been walking hallway more often, he hates the TV because it has bad intentions and therefore sits without anything by self in room often, encouraged to read but he appears to deny any activity as it triggers more delusions - he is on the State list for [facility] however counselors continue working on a penitentiary placement which could accomodate him at this time many places have denied him again 08/08 patient is referred for [facility] hospital but may be able to go to a placement if one is suitable and able to meet needs 07/31/17 patient is delusional and medically not stable 07/23/2017 - Patient remains pleasant, religiously preoccupied, and delusional. 07/18/2017 - Counselor reported that the patient remains delusional and religiously preoccupied. Patient's packet was [facility]. 07/02/17 Patient remains medication compliant and continues to isolate. He does not saocialize with peers or staff. 06/27/2017 Counselor will continue to search for approparit placement for this patient, 06/20/2017 Counselor will begin the process for finding appropriate placement Counselor will be in contact with family memebers to recieve collateral information in regards to patient's progress. 06-18-2017 - Counselor has faxed [facility]'s packet to [facility]. Counselor called [facility] and there are no beds available at this time. 06/25 patient is cooperative and calm on the unit and counselor will look for placement. Patient does not socialize with peers but is pleasant. 07/04/17 Patient is medication compliant. Patient presents calm, cooperative, affect appropriate. patient's speech is clear, and organized. Patient does present religiously preoccupied. Patient isolates, on unit Group Spec/RT/OT/SCHMIDT Present: Bel Velázquez, GPS, Teresa Dexter, SCHMIDT, Kane Solis, OT, Zen Gallego, SCHMIDT Group Spec/RT/OT/SCHMIDT Input: 08/20/17 attends select groups keeps to self 08/13 isolates to room and does not attend groups 08/08 patient is not attending groups and not medically cleared and on contact precautions 07/1617 does not attend 07/23/2017 - Patient refuses to attend groups. 07/18/2017 - Patient refuses to attend groups. 07/02/17 Patient isolates to his room and the only group he has attended so far is coffee shop. 06/27/2017 Patient refuses most groups, although he will occasionally attemd fresh air and snack time. 06/20/2017: Attends most groups, very cooperate, very hyperverbal Patient is new to unit and has not attend groups yet. 06-18-2017 - Patient attends select groups and his behavior is appropriate. 07/04/17 Patient attends exercise occasionally Discharge Plan SMA Patient will be discharged to an appropriate [facility]ISON when accepted. Documentation Scribe: Simin Trejo [facility] Date Resolved: Jul 23, 2017 Jenny Schroeder LCSW Aug 20, 2017 10:50
[2017-08-20] MEDS: ACETAMINOPHEN 325 MG TAB PO PRN (15:31)
[2017-08-20 18:00] VITALS: BP 147/60; PULSE 83; RESP 18; TEMP 97.5; O2SAT 99
--- NOTE | 2017-08-20 20:30 | HHI.PYPN ---
Subjective Remarks Patient seen for follow up; chart reviewed. Discussion staff reported that the patient continues with compliance with medications. Patient was found lying on hospital bed, calm and cooperative. He endorses paranoia with his brother in that his income was taken. He also continues with nondenominational delusions. Patient denies any physical complaints. He reports having gone to group today. Review of Systems Except as stated in HPI: all other systems reviewed are Neg Mental Status Examination Appearance: Appropriate Consciousness: Alert Orientation: Person, Place (at least) Motor Activity: Normal gait, Other Speech: Unremarkable Language: Adequate Fund of Knowledge: Adequate Attention and Concentration: Inadequate Memory: Unremarkable Mood: Appropriate, Other ("excellent") Affect: Appropriate Thought Process & Associations: Linear Thought Content: Bizarre thinking, Hallucinations, Delusional Hallucination Type: Auditory Delusion Type: Bizarre, Paranoid, Other (nondenominational) Suicidal Ideation: No Suicidal Plan: No Suicidal Intention: No Homicidal Ideation: No Homicidal Plan: No Homicidal Intention: No Insight: Poor Judgment: Poor Results Labs Date/Time Source Procedure Growth Status 07/23/17 20:14 Blood Peripheral Aerobic Blood Culture - Final NO GROWTH IN 5 DAYS Complete 07/23/17 20:14 Anaerobic Blood Culture - Final Staphylococcus Epidermidis Complete Vitals/IOs Vital Signs Date Time Temp Pulse Resp B/P (MAP) Pulse Ox O2 Delivery O2 Flow Rate FiO2 08/20/17 18:00 97.5 83 18 147/60 (89) 99 Intake and Output 08/20/17 08/20/17 08/21/17 08:00 16:00 00:00 Intake Total 320 ml 240 ml Balance 320 ml 240 ml Assessment & Plan Problem List: (1) Psychotic disorder ICD Codes: F29 - Unspecified psychosis not due to a substance or known physiological condition Status: Acute Assessment & Plan Patient with no behavioral disturbances, continue current treatment. Discharge planning in progress. Justification for Cont. Inpt. At risk for further decompensation at lower level of care. Discharge Planning [facility] hospital Problem Qualifiers (1) Psychotic disorder: Qualified Codes: F23 - Brief psychotic disorder Jhoan Tabares MD Aug 20, 2017 20:30
[2017-08-21 06:00] VITALS: BP 137/89; PULSE 90; RESP 18; TEMP 98.2; O2SAT 99
[2017-08-21] MEDS: HALOPERIDOL LACTATE 5 MG/ML AMP IM SCH ×2 (08:42→19:59)
[2017-08-21] MEDS: NYSTATIN SUSP 500,000 U/5 ML CUP SWISH-SWAL SCH ×4 (08:43→19:57)
[2017-08-21] MEDS: HALOPERIDOL 10 MG TAB PO SCH ×2 (08:43→19:57)
--- NOTE | 2017-08-21 16:42 | HHI.PYPN ---
Subjective Remarks Patient seen and examined with nurse in coverage for Dr. Tabares. Chart reviewed. Case discussed with nursing staff. On my examination today, the patient tells me "I'm doing A-ok." He rambles about "Mr. Champion." He tells me that he has seen Logan "since the moment I was created." He denies SI or HI. He denies side effects from medications. He does have a resting tremor but says that this is chronic. No physical complaints. Review of Systems ROS Limitations: Psychotic, Poor Historian Except as stated in HPI: all other systems reviewed are Neg Mental Status Examination Appearance: Appropriate Consciousness: Alert Orientation: Person, Place Motor Activity: Other (resting tremor. No other motor abnormalities noted.) Speech: Unremarkable Language: Adequate Fund of Knowledge: Adequate Attention and Concentration: Inadequate Memory: Unremarkable Mood: Appropriate, Other ("excellent") Affect: Appropriate Thought Process & Associations: Circumstantial Thought Content: Bizarre thinking, Hallucinations, Delusional Hallucination Type: Auditory Delusion Type: Bizarre, Paranoid, Other (ongoing pentecostalism) Suicidal Ideation: No Suicidal Plan: No Suicidal Intention: No Homicidal Ideation: No Homicidal Plan: No Homicidal Intention: No Insight: Poor Judgment: Poor Results Labs Labs reviewed. Vitals/IOs Vital Signs Date Time Temp Pulse Resp B/P (MAP) Pulse Ox O2 Delivery O2 Flow Rate FiO2 08/21/17 06:00 98.2 90 18 137/89 (105) 99 Intake and Output 08/21/17 08/21/17 08/22/17 08:00 16:00 00:00 Intake Total 480 ml Balance 480 ml Assessment & Plan Problem List: (1) Psychotic disorder ICD Codes: F29 - Unspecified psychosis not due to a substance or known physiological condition Status: Acute Assessment & Plan Continue current psychotropics as ordered. Continue to monitor on the inpatient unit. Continue other medications and care as ordered. Justification for Cont. Inpt. Impairment in reality construction. Risk for decompensation in less restrictive environment. Discharge Planning Per Dr. Tabares Problem Qualifiers (1) Psychotic disorder: Qualified Codes: F28 - Other psychotic disorder not due to a substance or known physiological condition Juvenal Chávez MD Aug 21, 2017 16:42
[2017-08-21 17:46] VITALS: BP 174/107; PULSE 87; RESP 18; TEMP 97.3; O2SAT 100
[2017-08-21] MEDS: cloNIDine HCL 0.1 MG TAB PO PRN (19:29)
[2017-08-21] MEDS: ACETAMINOPHEN 325 MG TAB PO PRN (19:57)
[2017-08-22 06:27] VITALS: BP 151/90; PULSE 77; RESP 18; TEMP 98.2; O2SAT 98
[2017-08-22] MEDS: HALOPERIDOL 10 MG TAB PO SCH ×2 (08:17→21:50)
[2017-08-22] MEDS: NYSTATIN SUSP 500,000 U/5 ML CUP SWISH-SWAL SCH ×4 (08:17→21:50)
[2017-08-22] MEDS: HALOPERIDOL LACTATE 5 MG/ML AMP IM SCH ×2 (08:17→21:00)
--- NOTE | 2017-08-22 15:42 | HHI.PYPN ---
Subjective Remarks Patient seen for follow-up, chart review. Discussed with nursing reported no changes behaviorally with patient. Patient was found eating in dayroom, cooperative interview today. Patient was noted to have left hand resting tremor which patient states has always had even prior to admission. He denies any physical complaints, stating feeling "excellent", continues to endorse restorationism delusions with auditory hallucinations related to the setting. Patient states he has been participating in groups outside but refuses to go to spirituality groups or any other activity. Review of Systems Except as stated in HPI: all other systems reviewed are Neg Mental Status Examination Appearance: Appropriate Consciousness: Alert Orientation: Person, Place Motor Activity: Other (resting tremor. No other motor abnormalities noted.) Speech: Unremarkable Language: Adequate Fund of Knowledge: Adequate Attention and Concentration: Inadequate Memory: Unremarkable Mood: Appropriate, Other ("excellent") Affect: Appropriate Thought Process & Associations: Circumstantial Thought Content: Bizarre thinking, Hallucinations, Delusional Hallucination Type: Auditory Delusion Type: Bizarre, Paranoid, Other (ongoing restorationism) Suicidal Ideation: No Suicidal Plan: No Suicidal Intention: No Homicidal Ideation: No Homicidal Plan: No Homicidal Intention: No Insight: Poor Judgment: Poor Results Labs Date/Time Source Procedure Growth Status 07/23/17 20:14 Blood Peripheral Aerobic Blood Culture - Final NO GROWTH IN 5 DAYS Complete 07/23/17 20:14 Anaerobic Blood Culture - Final Staphylococcus Epidermidis Complete Vitals/IOs Vital Signs Date Time Temp Pulse Resp B/P (MAP) Pulse Ox O2 Delivery O2 Flow Rate FiO2 08/22/17 06:27 98.2 77 18 151/90 (110) 98 Assessment & Plan Problem List: (1) Psychotic disorder ICD Codes: F29 - Unspecified psychosis not due to a substance or known physiological condition Status: Acute Assessment & Plan Patient with a behavioral disturbances, compliant with psychotropic medications. Patient with noted less hand tremor at rest which patient was recommended to start anticholinergic, benztropine 1 mg by mouth twice a day which patient was reluctant to start. Patient's tremor possibly from side effects from antipsychotic but will request neurology consult to rule out any other medical etiology. Continue current treatment. Continue to encourage patient to maintain adherence to all his medications. Discharge planning in progress Justification for Cont. Inpt. At risk for further decompensation at lower level of care Discharge Planning State hospital referral Problem Qualifiers (1) Psychotic disorder: Qualified Codes: F28 - Other psychotic disorder not due to a substance or known physiological condition Jhoan Tabares MD Aug 22, 2017 15:42
--- NOTE | 2017-08-22 15:53 | PD.TTN ---
Patient Problems 1. Discharge planning 2. Medication compliance 3. Knowledge deficit 4. Lack of coping skills Progress Toward Goals Provider Present: Dr. Master Cole, Dr. 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 Tabares reports the patient remains compliant with medications and without behavoral disturbance. 07/18/2017 - Patient remains a placement issue, compliant with medications, and without behavioral disturbance. 07/02/17 Patient remains psychotic and delusional. 06/27/2017 Patient will require placement in an Assisted Living Facility. He has a histroy of TBI, and fixed delusions that are voodoo nature. 06/20/2017; patient is at the highest dosage of medication and might need to have an additional med added to level off his mood/behavior. Patient is new to unit and will be starting on a medication regiment. Will monitor progress of patient throughout the week. 06/18/2017 - Dr. Tabares reports the patient would like placement in an [facility]ENT[facility]. 06/25 - Patient will continue to be looked for in regards to placement. Not behavioral issues on the unit. 07/04/17 Patient continues to meet criteria. Patient has court tomorrow Nurse(s) Present: TONY Lara Nurse(s) Input: 06/20/2017; Patient is taking his medication, eating meals; however patient displays manic behavior, up doing the night hours with limited sleep. 06/25 patient is noted to have no behavioral issues on the unit and has been compliant with medications. denies side effects 07/04/17 Patient's nurse Sara reports patient is religioulsy preoccupied, continues to practice ballet exercies. Medication compliant. Patient is calm and cooperative. Psychiatric Counselors Present: Jenny Schroeder LCSW, Marbella Britton, [facility], Simin Trejo, [facility], Linda Chandler, [facility] Psych Therapist Input: 08/22/17 remains delusional , state referral sent, still working on placement however keeps being denied 08/20/17 patient is asking to be discharged to self, but is very delusional and religiously pre-occupied believing Logan will assist him 08/17/17 patient remains delusional, grandiose and lacking some insight but is med compliant and agreeing to a placement, once one is found or arranged, discharge counselors Marbella and Gisselle are assisting with working with nursing homes and will try [facility] today 08/13 very delusional\ he agrees to go to outside and has been walking hallway more often, he hates the TV because it has bad intentions and therefore sits without anything by self in room often, encouraged to read but he appears to deny any activity as it triggers more delusions - he is on the State list for [facility] however counselors continue working on a senior care placement which could accomodate him at this time many places have denied him again 08/08 patient is referred for [facility] but may be able to go to a placement if one is suitable and able to meet needs 07/31/17 patient is delusional and medically not stable 07/23/2017 - Patient remains pleasant, religiously preoccupied, and delusional. 07/18/2017 - Counselor reported that the patient remains delusional and religiously preoccupied. Patient's packet was faxed to [facility], and [facility] for admission addessment. 07/02/17 Patient remains medication compliant and continues to isolate. He does not saocialize with peers or staff. 06/27/2017 Counselor will continue to search for approparit placement for this patient, 06/20/2017 Counselor will begin the process for finding appropriate placement Counselor will be in contact with family memebers to recieve collateral information in regards to patient's progress. 06-18-2017 - Counselor has faxed patient's packet to [facility] for admissions review. Counselor called [facility] and there are no beds available at this time. 06/25 patient is cooperative and calm on the unit and counselor will look for placement. Patient does not socialize with peers but is pleasant. 07/04/17 Patient is medication compliant. Patient presents calm, cooperative, affect appropriate. patient's speech is clear, and organized. Patient does present religiously preoccupied. Patient isolates, on unit Group Spec/RT/OT/SCHMIDT Present: Bel Velázquez, GPS, Teresa Dexter, SCHMIDT, Kane Solis, OT, Zen Gallego, SCHMIDT Group Spec/RT/OT/SCHMIDT Input: 08/22/17 does not attend gruops, continues to isolate, goes outside at times 08/20/17 attends select groups keeps to self 08/13 isolates to room and does not attend groups 08/08 patient is not attending groups and not medically cleared and on contact precautions 07/1617 does not attend 07/23/2017 - Patient refuses to attend groups. 07/18/2017 - Patient refuses to attend groups. 07/02/17 Patient isolates to his room and the only group he has attended so far is coffee shop. 06/27/2017 Patient refuses most groups, although he will occasionally attemd fresh air and snack time. 06/20/2017: Attends most groups, very cooperate, very hyperverbal Patient is new to unit and has not attend groups yet. 06-18-2017 - Patient attends select groups and his behavior is appropriate. 07/04/17 Patient attends exercise occasionally Discharge Plan SMA Patient will be discharged to an appropriate [facility] when accepted. Documentation Scribe: Simin Trejo [facility] Date Resolved: Jul 23, 2017 Jenny Schroeder LCSW Aug 22, 2017 15:53
[2017-08-22] MEDS: BENZTROPINE MESYLATE 1 MG TAB PO SCH (21:49)
--- NOTE | 2017-08-22 23:02 | MB ---
cc: KADEN RENTERIA DATE OF CONSULTATION: 08/22/2017 REASON FOR CONSULTATION: HISTORY OF PRESENT ILLNESS: The patient is a 61-year-old right-handed man with hypertension, hepatitis C that was fully treated he tells me. He says he has had 10 years of tremor in his left more than right hand. It does not seem to be getting worse. He does not want any treatment for it. He says he does not really shuffle. SOCIAL HISTORY: He is not a smoker or drinker. No drugs. He lives with his brother. FAMILY HISTORY: Negative for cancer, seizure or stroke. REVIEW OF SYSTEMS: He denies diabetes, hypercholesterolemia, PR, CABG, cardiac arrhythmia, stent, angioplasty, A-fib, Coumadin, renal, pulmonary disease, thyroid disease, lupus, ulcer, cancer, seizure or stroke. MEDICATIONS: 1. Cogentin 0.5 q12. 2. Catapres. 3. Haldol 10 milligrams twice a day, 5 milligrams IM b.i.d.. 4. Cogentin another milligram q12. 5. Ativan 1 milligram p.r.n. 6. Tylenol. PHYSICAL EXAMINATION: Afebrile, 83, 18, 151/90. Neck: No carotid bruits. Heart: Heart was regular rhythm, I did not detect a murmur. HEENT: Pupils are equal, visual campos full. Extraocular movements intact without nystagmus. Neurologic: Face symmetric with normal sensation. Tongue was midline. Vertical gaze was normal. There is no drift. He had normal strength in upper and lower extremities bilaterally. Fasting movements are actually fairly symmetric and near normal as was rapid alternating movements and [id number] bilaterally along with mwin-sg-gwcs, toe tapping and foot tapping. DTRs are absent throughout. Toes were downgoing. Pinprick intact throughout. He is not ataxic on [id number] but he does have a tremor which is at rest, at times severe and with walking, left greater than right upper extremity and also a slight mild intention tremor bilaterally. His tone, however, was normal in the bilateral lower extremities, may have had just a hint of cogwheel rigidity in the upper extremities bilaterally. Gait showed a little bit slow, same small steps, no major shuffling, slightly stooped. LABORATORY DATA: White blood count 23,000, platelet count 13,000, hematocrit is normal. White was normal on July 23 of this year, so I am not sure why so elevated. Basic metabolic profile essentially normal. LFTs were very high with an ALT of 500, now down to 71, AST 44, albumin 3.1. B12 was normal in May of last year. LDL cholesterol was normal also. TSH also normal then. Urine drug screen positive for marijuana only. RPR was negative in July of this year. Cryptococcal antigen is negative. HIV is very positive greater then 10 million. Hepatitis C is reactive in the antibody, negative in the antigens. PAST MEDICAL HISTORY As above. 1. History of HIV. He has been off his HAART therapy. 2. History of bipolar and schizophrenia, though he denies any recent hallucinations. IMPRESSION HIV, saying he does not want any treatment for that. Hematology is looking into the elevated white count. Some parkinsonism, probably from the antipsychotics. Strictly from a tremor point of view if we want to get rid of that we could try some Sinemet, but he does not want to try that. The other option would be to stop the Haldol and try a different antipsychotic, especially the high dose he is on. I defer to the med team for that. With his HIV, I would recommend an MRI of the brain with and without contrast. I have ordered that. I am not sure if will actually go ahead and approve that. If the MRI of the brain is normal, there is not much more to add neurologically at this time, as he does not really want treatment for the tremor. He could be discharged neuro quinones if his brain MRI is negative. MD PATRICIO Richard/STAR /5:14 PM /10:42 PM
[2017-08-23 06:24] VITALS: BP 130/75; PULSE 94; RESP 17; TEMP 98.4; O2SAT 98
[2017-08-23] MEDS: HALOPERIDOL 10 MG TAB PO SCH ×2 (08:35→22:17)
[2017-08-23] MEDS: HALOPERIDOL LACTATE 5 MG/ML AMP IM SCH ×2 (08:35→21:00)
[2017-08-23] MEDS: NYSTATIN SUSP 500,000 U/5 ML CUP SWISH-SWAL SCH ×4 (08:35→22:17)
[2017-08-23] MEDS: BENZTROPINE MESYLATE 1 MG TAB PO SCH ×2 (08:35→22:17)
[2017-08-23] MEDS ORDERED: GADODIAMIDE PF 287 MG/ML 5 ML VIAL (for RAD MRI) IV PUSH ONE (15:38)
[2017-08-23 17:31] VITALS: BP 134/84; PULSE 96; RESP 16; TEMP 98.3; O2SAT 98
--- NOTE | 2017-08-23 17:32 | RADRPT ---
EXAM DATE/TIME: 08/23/2017 15:16 [facility] COMPARISON: No previous studies available for comparison. INDICATIONS : HIV. Tremors and psychosis. CONTRAST: 12 cc Omniscan (gadodiamide) IV MEDICAL HISTORY : Hepatitis C. HIV. Hypertension. SURGICAL HISTORY : Right ankle. ENCOUNTER: Initial ACUITY: 2 day PAIN SCORE: 0/10 LOCATION: Head. TECHNIQUE: Multiplanar, multisequence MRI of the brain was performed both prior to and following the administrat ion of paramagnetic contrast. FINDINGS: Axial inversion recovery images demonstrate an area of encephalomalacia and gliosis involving the lef t temporal and occipital cortex. There is colpocephalic dilation of the posterior horn of the left la teral ventricle. The T2-weighted images demonstrate fairly diffuse punctate areas of increased T2 signal throughout th e white matter most consistent with microvascular ischemic demyelinative change. No abnormal signal is seen on the diffusion restriction images to indicate acute cortical infarction. No abnormal extra-axial fluid collections are seen. The appearance of the posterior fossa is unremark able. Postcontrast T1-weighted imaging is provided. No enhancing mass lesion is identified. The visualized portion of orbit and sinus are intact. CONCLUSION: 1. 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 2. No findings to indicate acute cortical infarction are seen. 3. Scattered areas of increased T2 signal in the white matter most consistent with microvascular isch emic demyelinative change. 4. No abnormal enhancement identified within the brain parenchyma. Figueroa Nina MD on August 23, 2017 at 17:27 Board Certified Radiologist. This report was verified electronically.
--- NOTE | 2017-08-23 17:33 | HHI.PYPN ---
Subjective Remarks Patient seen for follow-up, chart reviewed. Discussion with nursing staff reported that patient with no behavioral change, had MRI done. Patient was found sitting on hospital bed, calm and cooperative. He states that he met with the neurologist and that he feels that the tremor has been longstanding for years and that it does not bother him. Patient refuses to take any other medication as the tremor could be from antipsychotic but refuses. He agreed for MRI which was completed but refused any other alternative to treat his tremor. He continues to endorse the bahai delusions. Review of Systems Except as stated in HPI: all other systems reviewed are Neg Mental Status Examination Appearance: Appropriate Consciousness: Alert Orientation: Person, Place Motor Activity: Other (resting tremor. No other motor abnormalities noted.) Speech: Unremarkable Language: Adequate Fund of Knowledge: Adequate Attention and Concentration: Inadequate Memory: Unremarkable Mood: Appropriate, Other ("excellent") Affect: Appropriate Thought Process & Associations: Circumstantial Thought Content: Bizarre thinking, Hallucinations, Delusional Hallucination Type: Auditory Delusion Type: Bizarre, Paranoid, Other (ongoing bahai) Suicidal Ideation: No Suicidal Plan: No Suicidal Intention: No Homicidal Ideation: No Homicidal Plan: No Homicidal Intention: No Insight: Poor Judgment: Poor Results Labs Date/Time Source Procedure Growth Status 07/23/17 20:14 Blood Peripheral Aerobic Blood Culture - Final NO GROWTH IN 5 DAYS Complete 07/23/17 20:14 Anaerobic Blood Culture - Final Staphylococcus Epidermidis Complete Vitals/IOs Vital Signs Date Time Temp Pulse Resp B/P (MAP) Pulse Ox O2 Delivery O2 Flow Rate FiO2 08/23/17 17:31 98.3 96 16 134/84 (101) 98 Assessment & Plan Problem List: (1) Psychotic disorder ICD Codes: F29 - Unspecified psychosis not due to a substance or known physiological condition Status: Acute Assessment & Plan Patient continues with bahai delusions, refusing recommendations for tremor. Neurology input appreciated. Continue current treatment and benztropine to address EPS. Discharge planning in progress. Justification for Cont. Inpt. At risk for further decompensation if at lower level of care. [facility] Problem Qualifiers (1) Psychotic disorder: Qualified Codes: F28 - Other psychotic disorder not due to a substance or known physiological condition Jhoan Tabares MD Aug 23, 2017 17:33
[2017-08-24 05:30] VITALS: BP 137/79; PULSE 84; RESP 17; TEMP 97.7; O2SAT 98
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
[2017-08-24] MEDS: HALOPERIDOL LACTATE 5 MG/ML AMP IM SCH ×2 (09:00→21:00)
[2017-08-24] MEDS: NYSTATIN SUSP 500,000 U/5 ML CUP SWISH-SWAL SCH ×4 (09:35→21:24)
[2017-08-24] MEDS: HALOPERIDOL 10 MG TAB PO SCH ×2 (09:35→21:24)
[2017-08-24] MEDS: BENZTROPINE MESYLATE 1 MG TAB PO SCH ×2 (09:35→21:24)
--- NOTE | 2017-08-24 16:06 | HHI.PYPN ---
Subjective Remarks Patient seen for follow, chart reviewed. Discussion nursing staff reported that patient has been visible on unit and participating in some groups. Patient was found sitting on hospital bed, cooperative. Patient states that he is feeling "excellent" continues to endorse nondenominational delusions of Logan Silvino , fireball, his partner and the devil who he calls Mr waters. Patient states that he was seen by neurologist earlier today who had reviewed his MRI findings. Patient denies any physical complaints at this time. Patient continues to refuse any other medications aside from a psychotropic medication to address noted tremor which is likely secondary to side effects from his medications. Review of Systems Except as stated in HPI: all other systems reviewed are Neg Mental Status Examination Appearance: Appropriate Consciousness: Alert Orientation: Person, Place Motor Activity: Other (resting tremor. No other motor abnormalities noted.) Speech: Unremarkable Language: Adequate Fund of Knowledge: Adequate Attention and Concentration: Inadequate Memory: Unremarkable Mood: Appropriate, Other ("excellent") Affect: Appropriate Thought Process & Associations: Circumstantial Thought Content: Bizarre thinking, Hallucinations, Delusional Hallucination Type: Auditory Delusion Type: Bizarre, Paranoid, Other (ongoing nondenominational) Suicidal Ideation: No Suicidal Plan: No Suicidal Intention: No Homicidal Ideation: No Homicidal Plan: No Homicidal Intention: No Insight: Poor Judgment: Poor Results Labs Date/Time Source Procedure Growth Status 07/23/17 20:14 Blood Peripheral Aerobic Blood Culture - Final NO GROWTH IN 5 DAYS Complete 07/23/17 20:14 Anaerobic Blood Culture - Final Staphylococcus Epidermidis Complete Vitals/IOs Vital Signs Date Time Temp Pulse Resp B/P (MAP) Pulse Ox O2 Delivery O2 Flow Rate FiO2 08/24/17 05:30 97.7 84 17 137/79 (98) 98 Assessment & Plan Problem List: (1) Psychotic disorder ICD Codes: F29 - Unspecified psychosis not due to a substance or known physiological condition Status: Acute Assessment & Plan Patient at this time continues with fixed nondenominational delusions, auditory hallucinations of the same. Patient to continue current treatment. Patient to continue to be encouraged to adhere to rest of medications. Neurology input appreciated. Report of MRI reviewed. Continue to monitor mood and behavior. Continue to encourage patient to participate in groups and activities on the unit. Discharge planning in progress. Justification for Cont. Inpt. At risk for further decompensation if at lower level of care [facility] Problem Qualifiers (1) Psychotic disorder: Qualified Codes: F28 - Other psychotic disorder not due to a substance or known physiological condition Jhoan Tabares MD Aug 24, 2017 16:06
[2017-08-25 06:21] VITALS: BP 162/89; PULSE 93; RESP 19; TEMP 97.3; O2SAT 98
[2017-08-25] MEDS: HALOPERIDOL LACTATE 5 MG/ML AMP IM SCH ×2 (09:00→21:00)
[2017-08-25] MEDS: HALOPERIDOL 10 MG TAB PO SCH ×2 (09:45→21:00)
[2017-08-25] MEDS: BENZTROPINE MESYLATE 1 MG TAB PO SCH ×2 (09:45→21:00)
[2017-08-25] MEDS: NYSTATIN SUSP 500,000 U/5 ML CUP SWISH-SWAL SCH ×4 (09:45→21:00)
--- NOTE | 2017-08-25 15:44 | HHI.PYPN ---
Subjective Remarks Pt seen and discussed with staff. He has been confused but polite. No aggression or behavioral problems. He states that ballet is perfect in heaven. He is compliant with medications and care. No SI/HI Mental Status Examination Appearance: Appropriate Consciousness: Alert Orientation: Person, Place Motor Activity: Other (resting tremor. No other motor abnormalities noted.) Speech: Unremarkable Language: Adequate Fund of Knowledge: Adequate Attention and Concentration: Inadequate Memory: Unremarkable Mood: Appropriate, Other ("excellent") Affect: Appropriate Thought Process & Associations: Circumstantial Thought Content: Bizarre thinking, Hallucinations, Delusional Hallucination Type: Auditory Delusion Type: Bizarre, Paranoid, Other (ongoing congregation) Suicidal Ideation: No Suicidal Plan: No Suicidal Intention: No Homicidal Ideation: No Homicidal Plan: No Homicidal Intention: No Insight: Poor Judgment: Poor Results Labs Date/Time Source Procedure Growth Status 07/23/17 20:14 Blood Peripheral Aerobic Blood Culture - Final NO GROWTH IN 5 DAYS Complete 07/23/17 20:14 Anaerobic Blood Culture - Final Staphylococcus Epidermidis Complete Vitals/IOs Vital Signs Date Time Temp Pulse Resp B/P (MAP) Pulse Ox O2 Delivery O2 Flow Rate FiO2 08/25/17 06:21 97.3 93 19 162/89 (113 98 Assessment & Plan Problem List: (1) Psychotic disorder ICD Codes: F29 - Unspecified psychosis not due to a substance or known physiological condition Status: Acute Assessment & Plan continue current tx plan. Estimated LOS: days Justification for Cont. Inpt. impairments in reality testing. Problem Qualifiers (1) Psychotic disorder: Qualified Codes: F28 - Other psychotic disorder not due to a substance or known physiological condition Radha Meyers MD Aug 25, 2017 15:44
[2017-08-25 18:00] VITALS: BP 149/93; PULSE 101; RESP 18; TEMP 98.2; O2SAT 98
[2017-08-26] MEDS: HALOPERIDOL 10 MG TAB PO SCH ×2 (08:27→20:39)
[2017-08-26] MEDS: NYSTATIN SUSP 500,000 U/5 ML CUP SWISH-SWAL SCH ×4 (08:28→20:39)
[2017-08-26] MEDS: BENZTROPINE MESYLATE 1 MG TAB PO SCH ×2 (08:28→20:39)
[2017-08-26] MEDS: HALOPERIDOL LACTATE 5 MG/ML AMP IM SCH ×2 (09:00→20:39)
--- NOTE | 2017-08-26 14:17 | HHI.PYPN ---
Subjective Remarks Pt seen and discussed with staff. He reported to RN that he and Logan were ballet dancing this morning. He states that God is sending him messages and then states a rambling diatribe accusing Dr. Poon of "being dr. Spencer and Catrina Micha". No SI/HI He is compliant with medications. Mental Status Examination Appearance: Appropriate Consciousness: Alert Orientation: Person, Place Motor Activity: Other (resting tremor. No other motor abnormalities noted.) Speech: Unremarkable Language: Adequate Fund of Knowledge: Adequate Attention and Concentration: Inadequate Memory: Unremarkable Mood: Appropriate, Other ("excellent") Affect: Appropriate Thought Process & Associations: Circumstantial Thought Content: Bizarre thinking, Hallucinations, Delusional Hallucination Type: Auditory Delusion Type: Bizarre, Paranoid, Other (ongoing mormonism) Suicidal Ideation: No Suicidal Plan: No Suicidal Intention: No Homicidal Ideation: No Homicidal Plan: No Homicidal Intention: No Insight: Poor Judgment: Poor Results Labs Date/Time Source Procedure Growth Status 07/23/17 20:14 Blood Peripheral Aerobic Blood Culture - Final NO GROWTH IN 5 DAYS Complete 07/23/17 20:14 Anaerobic Blood Culture - Final Staphylococcus Epidermidis Complete Vitals/IOs Vital Signs Date Time Temp Pulse Resp B/P (MAP) Pulse Ox O2 Delivery O2 Flow Rate FiO2 08/25/17 18:00 98.2 101 18 149/93 (111) 98 Intake and Output 08/26/17 08/26/17 08/27/17 08:00 16:00 00:00 Intake Total 240 ml 240 ml Balance 240 ml 240 ml Assessment & Plan Problem List: (1) Psychotic disorder ICD Codes: F29 - Unspecified psychosis not due to a substance or known physiological condition Status: Acute Assessment & Plan continue current tx plan. Estimated LOS: days Justification for Cont. Inpt. impairments in reality testing and self care. Problem Qualifiers (1) Psychotic disorder: Qualified Codes: F28 - Other psychotic disorder not due to a substance or known physiological condition Radha Meyers MD Aug 26, 2017 14:17
[2017-08-26 18:57] VITALS: BP 155/83; PULSE 80; RESP 16; TEMP 98.2; O2SAT 97
[2017-08-27 06:16] VITALS: BP 143/89; PULSE 87; RESP 16; TEMP 97.4; O2SAT 96
[2017-08-27] MEDS: HALOPERIDOL LACTATE 5 MG/ML AMP IM SCH ×2 (08:12→21:00)
[2017-08-27] MEDS: HALOPERIDOL 10 MG TAB PO SCH ×2 (08:20→21:00)
[2017-08-27] MEDS: BENZTROPINE MESYLATE 1 MG TAB PO SCH ×2 (08:20→21:00)
[2017-08-27] MEDS: NYSTATIN SUSP 500,000 U/5 ML CUP SWISH-SWAL SCH ×4 (08:20→21:00)
--- NOTE | 2017-08-27 16:45 | HHI.PYPN ---
Subjective Remarks Patient seen for follow-up, chart reviewed. Discussion nursing staff reported that patient continues to be pleasant and cooperative and only taking psychotropic medications. Patient was found sitting in a hospital chair in her to be, cooperative. Patient states that he has been participating in some groups and feeling "excellent" patient denies any physical complaints at this time but was requesting to have his fingernails trimmed as well as to be able to shave. He was perseverative today on how his family does not care for him and that he did not does not want to interact with them as he had reported his brother calling to the unit and planning to visit him. Review of Systems Except as stated in HPI: all other systems reviewed are Neg Mental Status Examination Appearance: Appropriate Consciousness: Alert Orientation: Person, Place Motor Activity: Other (resting tremor. No other motor abnormalities noted.) Speech: Unremarkable Language: Adequate Fund of Knowledge: Adequate Attention and Concentration: Inadequate Memory: Unremarkable Mood: Appropriate, Other ("excellent") Affect: Appropriate Thought Process & Associations: Circumstantial Thought Content: Bizarre thinking, Hallucinations, Delusional Hallucination Type: Auditory Delusion Type: Bizarre, Paranoid, Other (ongoing anglican) Suicidal Ideation: No Suicidal Plan: No Suicidal Intention: No Homicidal Ideation: No Homicidal Plan: No Homicidal Intention: No Insight: Poor Judgment: Poor Results Labs Date/Time Source Procedure Growth Status 07/23/17 20:14 Blood Peripheral Aerobic Blood Culture - Final NO GROWTH IN 5 DAYS Complete 07/23/17 20:14 Anaerobic Blood Culture - Final Staphylococcus Epidermidis Complete Vitals/IOs Vital Signs Date Time Temp Pulse Resp B/P (MAP) Pulse Ox O2 Delivery O2 Flow Rate FiO2 08/27/17 06:16 97.4 87 16 143/89 (107) 96 Assessment & Plan Problem List: (1) Psychotic disorder ICD Codes: F29 - Unspecified psychosis not due to a substance or known physiological condition Status: Acute Assessment & Plan Patient at this time and had any behavioral disturbances continues with persistent anglican preoccupation and delusions. Continue current treatment, continue to encourage patient to adhere to rest and medications. We will order CBC and BMP for follow-up. Discharge planning in progress Justification for Cont. Inpt. At risk for further decompensation at lower level of care Discharge Planning [facility] Problem Qualifiers (1) Psychotic disorder: Qualified Codes: F28 - Other psychotic disorder not due to a substance or known physiological condition Jhoan Tabares MD Aug 27, 2017 16:45
[2017-08-27 17:35] VITALS: BP 140/90; PULSE 100; RESP 18; TEMP 98.7; O2SAT 99
[2017-08-27 20:47] LABS: AUTOMATED NEUTROPHIL # 3.3 TH/MM3 (1.8-7.7); BASOPHIL # 0.1 TH/MM3 (0-0.2); BASOPHIL % 0.8 % (0.0-2.0); EOSINOPHIL # 0.7 TH/MM3 (0-0.4); HEMATOCRIT 35.3 % (39.0-51.0); MEAN CELL VOLUME 85.7 FL (80.0-100.0); MEAN CORPUSCULAR HGB CONC 33.8 % (32.0-36.0); MEAN PLATELET VOLUME 8.3 FL (7.0-11.0); MONO % 7.7 % (0.0-8.0); MONOCYTE # 1.1 TH/MM3 (0-0.9); NEUT % 23.5 % (16.0-70.0); PLATELET COUNT 287 TH/MM3 (150-450); RED BLOOD COUNT 4.12 MIL/MM3 (4.50-5.90); RED CELL DISTRIBUTION WIDTH 16.4 % (11.6-17.2); WHITE BLOOD COUNT 14.2 TH/MM3 (4.0-11.0)
[2017-08-27 20:51] LABS: ALBUMIN 2.9 GM/DL (3.4-5.0); AST (GOT) 42 U/L (15-37); BICARBONATE 31.5 MEQ/L (21.0-32.0); BLOOD UREA NITROGEN 18 MG/DL (7-18); CALCIUM 9.5 MG/DL (8.5-10.1); CHLORIDE 100 MEQ/L (98-107); CREATININE 0.97 MG/DL (0.60-1.30); GLOMERULAR FILTRATION RATE 79 ML/MIN (>89); GLUCOSE,RANDOM 96 MG/DL (74-106); SODIUM (NA) 136 MEQ/L (136-145)
[2017-08-27 20:52] LABS: ALT (GPT) 32 U/L (12-78)
[2017-08-27 20:54] LABS: ALKALINE PHOSPHATASE 233 U/L (45-117); TOTAL BILIRUBIN ADULT 0.4 MG/DL (0.2-1.0); TOTAL PROTEIN 6.9 GM/DL (6.4-8.2)
[2017-08-27 21:25] LABS: BASOPHILS 1 % (0-2); LYMPHOCYTES 57 % (9-44); MONOCYTES 10 % (0-8); NEUTROPHIL # MANUAL DIFF 4.3 TH/MM3 (1.8-7.7); POLYS (SEG NEUTROPHILS) 30 % (16-70)
[2017-08-28 05:41] VITALS: BP 138/88; PULSE 103; RESP 16; TEMP 98
[2017-08-28] MEDS: HALOPERIDOL 10 MG TAB PO SCH ×2 (08:30→21:00)
[2017-08-28] MEDS: HALOPERIDOL LACTATE 5 MG/ML AMP IM SCH ×2 (08:31→21:00)
[2017-08-28] MEDS: NYSTATIN SUSP 500,000 U/5 ML CUP SWISH-SWAL SCH ×4 (08:31→21:00)
[2017-08-28] MEDS: BENZTROPINE MESYLATE 1 MG TAB PO SCH ×2 (08:31→21:00)
--- NOTE | 2017-08-28 14:04 | HHI.PYPN ---
Subjective Remarks Patient seen for follow-up, chart reviewed. Discussion is to have reported to have been no behavioral changes with the patient, was noted yesterday to be dancing "with Logan". Patient found in the room having lunch to be calm and cooperative. Patient noted to have shaven with treatment for urinalysis and improve hygiene. Patient continues to endorse bizarre evangelical delusions of "Logan Silvino, sabaser, firedaniel". Patient spent some time be perseverative on his relationship discord with his family history with denies any physical complaints at this time. Review of Systems Except as stated in HPI: all other systems reviewed are Neg Mental Status Examination Appearance: Appropriate Consciousness: Alert Orientation: Person, Place Motor Activity: Other (resting tremor. No other motor abnormalities noted.) Speech: Unremarkable Language: Adequate Fund of Knowledge: Adequate Attention and Concentration: Inadequate Memory: Unremarkable Mood: Appropriate, Other ("excellent") Affect: Appropriate Thought Process & Associations: Circumstantial Thought Content: Bizarre thinking, Hallucinations, Delusional Hallucination Type: Auditory Delusion Type: Bizarre, Paranoid, Other (ongoing evangelical) Suicidal Ideation: No Suicidal Plan: No Suicidal Intention: No Homicidal Ideation: No Homicidal Plan: No Homicidal Intention: No Insight: Poor Judgment: Poor Results Labs Labs reviewed Test 08/27/17 20:10 White Blood Count 14.2 TH/MM3 Red Blood Count 4.12 MIL/MM3 Hemoglobin 12.0 GM/DL Hematocrit 35.3 % Mean Corpuscular Volume 85.7 FL Mean Corpuscular Hemoglobin 29.0 PG Mean Corpuscular Hemoglobin Concent 33.8 % Red Cell Distribution Width 16.4 % Platelet Count 287 TH/MM3 Mean Platelet Volume 8.3 FL Neutrophils (%) (Auto) 23.5 % Lymphocytes (%) (Auto) 63.0 % Monocytes (%) (Auto) 7.7 % Eosinophils (%) (Auto) 5.0 % Basophils (%) (Auto) 0.8 % Neutrophils # (Auto) 3.3 TH/MM3 Lymphocytes # (Auto) 9.0 TH/MM3 Monocytes # (Auto) 1.1 TH/MM3 Eosinophils # (Auto) 0.7 TH/MM3 Basophils # (Auto) 0.1 TH/MM3 CBC Comment AUTO DIFF Differential Total Cells Counted 100 Neutrophils % (Manual) 30 % Lymphocytes % 57 % Monocytes % 10 % Eosinophils % 2 % Basophils % 1 % Neutrophils # (Manual) 4.3 TH/MM3 Differential Comment FINAL DIFF MANUAL Atypical Lymphocytes % Platelet Estimate NORMAL Platelet Morphology Comment NORMAL Blood Urea Nitrogen 18 MG/DL Creatinine 0.97 MG/DL Random Glucose 96 MG/DL Total Protein 6.9 GM/DL Albumin 2.9 GM/DL Calcium Level 9.5 MG/DL Alkaline Phosphatase 233 U/L Aspartate Amino Transf (AST/SGOT) 42 U/L Alanine Aminotransferase (ALT/SGPT) 32 U/L Total Bilirubin 0.4 MG/DL Sodium Level 136 MEQ/L Potassium Level 4.1 MEQ/L Chloride Level 100 MEQ/L Carbon Dioxide Level 31.5 MEQ/L Anion Gap 5 MEQ/L Estimat Glomerular Filtration Rate 79 ML/MIN Date/Time Source Procedure Growth Status 07/23/17 20:14 Blood Peripheral Aerobic Blood Culture - Final NO GROWTH IN 5 DAYS Complete 07/23/17 20:14 Anaerobic Blood Culture - Final Staphylococcus Epidermidis Complete Vitals/IOs Vital Signs Date Time Temp Pulse Resp B/P (MAP) Pulse Ox O2 Delivery O2 Flow Rate FiO2 08/28/17 05:41 98.0 103 16 138/88 (105) 08/27/17 17:35 99 Intake and Output 08/28/17 08/28/17 08/29/17 08:00 16:00 00:00 Intake Total 240 ml Balance 240 ml Assessment & Plan Problem List: (1) Psychotic disorder ICD Codes: F29 - Unspecified psychosis not due to a substance or known physiological condition Status: Acute Assessment & Plan Patient this time continues with persistent evangelical delusions or perceptual disturbances related to the same. Patient compliant with psychotropics at this time as well as other medications. Continue to monitor mood and behavior. Continue to encourage patient to participate in groups and activities on the unit. Discharge planning in progress. Justification for Cont. Inpt. At risk for further decompensation if at lower level of care Problem Qualifiers (1) Psychotic disorder: Qualified Codes: F28 - Other psychotic disorder not due to a substance or known physiological condition Jhoan Tabares MD Aug 28, 2017 14:04
[2017-08-28] MEDS: ACETAMINOPHEN 325 MG TAB PO PRN (14:49)
[2017-08-28 14:58] VITALS: BP 148/96; PULSE 100; RESP 18; TEMP 97.5; O2SAT 98
[2017-08-28 18:50] VITALS: BP 133/75; PULSE 88; RESP 18; TEMP 97.4; O2SAT 99
[2017-08-29 06:19] VITALS: BP 156/81; PULSE 98; RESP 18; TEMP 97.6; O2SAT 97
[2017-08-29] MEDS: HALOPERIDOL 10 MG TAB PO SCH ×2 (08:55→21:09)
[2017-08-29] MEDS: NYSTATIN SUSP 500,000 U/5 ML CUP SWISH-SWAL SCH ×4 (08:55→21:09)
[2017-08-29] MEDS: BENZTROPINE MESYLATE 1 MG TAB PO SCH ×2 (08:55→21:09)
[2017-08-29] MEDS: HALOPERIDOL LACTATE 5 MG/ML AMP IM SCH ×2 (09:00→21:00)
--- NOTE | 2017-08-29 14:33 | HHI.PYPN ---
Subjective Remarks Patient seen for follow-up, chart reviewed. Discussion with nursing staff reported that the patient maintains good hygiene, participates in selected groups. Patient was found in day room, calm and cooperative with interview. Patient states that he is feeling "excellent", continues to report having "same plan" referring to his mission with Logan in curing AIDS. He states attending some groups. Mental Status Examination Appearance: Appropriate Consciousness: Alert Orientation: Person, Place Motor Activity: Other (resting tremor. No other motor abnormalities noted.) Speech: Unremarkable Language: Adequate Fund of Knowledge: Adequate Attention and Concentration: Inadequate Memory: Unremarkable Mood: Appropriate, Other ("excellent") Affect: Appropriate Thought Process & Associations: Circumstantial Thought Content: Bizarre thinking, Hallucinations, Delusional Hallucination Type: Auditory Delusion Type: Bizarre, Paranoid, Other (ongoing lutheran) Suicidal Ideation: No Suicidal Plan: No Suicidal Intention: No Homicidal Ideation: No Homicidal Plan: No Homicidal Intention: No Insight: Poor Judgment: Poor Results Labs Date/Time Source Procedure Growth Status 07/23/17 20:14 Blood Peripheral Aerobic Blood Culture - Final NO GROWTH IN 5 DAYS Complete 07/23/17 20:14 Anaerobic Blood Culture - Final Staphylococcus Epidermidis Complete Vitals/IOs Vital Signs Date Time Temp Pulse Resp B/P (MAP) Pulse Ox O2 Delivery O2 Flow Rate FiO2 08/29/17 06:19 97.6 98 18 156/81 (106) 97 Assessment & Plan Problem List: (1) Psychotic disorder ICD Codes: F29 - Unspecified psychosis not due to a substance or known physiological condition Status: Acute Assessment & Plan Patient continues with lutheran delusions and AH of the same. He continues compliance with treatment, with noted less tremor. Continue to monitor mood and behavior. Continue to encourage patient to participate in groups and activities. Discharge planning in progress. Justification for Cont. Inpt. At risk for further decompensation if at lower level of care. Discharge Planning To be determined Problem Qualifiers (1) Psychotic disorder: Qualified Codes: F28 - Other psychotic disorder not due to a substance or known physiological condition Jhoan Tabares MD Aug 29, 2017 14:33
[2017-08-29 16:45] VITALS: BP 151/93; PULSE 88; RESP 18; TEMP 98; O2SAT 99
[2017-08-30 06:07] VITALS: BP 141/90; PULSE 86; RESP 16; TEMP 97.8; O2SAT 97
[2017-08-30] MEDS: HALOPERIDOL LACTATE 5 MG/ML AMP IM SCH ×2 (09:00→20:52)
[2017-08-30] MEDS: NYSTATIN SUSP 500,000 U/5 ML CUP SWISH-SWAL SCH ×4 (09:31→20:51)
[2017-08-30] MEDS: HALOPERIDOL 10 MG TAB PO SCH ×2 (09:32→20:51)
[2017-08-30] MEDS: BENZTROPINE MESYLATE 1 MG TAB PO SCH ×2 (09:32→20:51)
[2017-08-30 17:34] VITALS: BP 156/105; PULSE 106; RESP 17; TEMP 98.5; O2SAT 98
--- NOTE | 2017-08-30 17:42 | HHI.PYPN ---
Subjective Remarks Patient seen for follow-up, chart reviewed. Discussion nursing staff reported the patient has not had any changes with no behavioral disturbances. Patient is found lying in hospital bed, cooperative. Patient reports have been mostly in bed today but has been out for meals as well as participating more in group. Patient was encouraged to participate in more groups when she was initially reluctant but states he will try. Patient continued with shinto delusions and auditory hallucinations from the same. Review of Systems Except as stated in HPI: all other systems reviewed are Neg Mental Status Examination Appearance: Appropriate Consciousness: Alert Orientation: Person, Place Motor Activity: Other (resting tremor. No other motor abnormalities noted.) Speech: Unremarkable Language: Adequate Fund of Knowledge: Adequate Attention and Concentration: Inadequate Memory: Unremarkable Mood: Appropriate, Other ("excellent") Affect: Appropriate Thought Process & Associations: Circumstantial Thought Content: Bizarre thinking, Hallucinations, Delusional Hallucination Type: Auditory Delusion Type: Bizarre, Paranoid (less so today), Other (ongoing shinto) Suicidal Ideation: No Suicidal Plan: No Suicidal Intention: No Homicidal Ideation: No Homicidal Plan: No Homicidal Intention: No Insight: Poor Judgment: Poor Results Labs Date/Time Source Procedure Growth Status 07/23/17 20:14 Blood Peripheral Aerobic Blood Culture - Final NO GROWTH IN 5 DAYS Complete 07/23/17 20:14 Anaerobic Blood Culture - Final Staphylococcus Epidermidis Complete Vitals/IOs Vital Signs Date Time Temp Pulse Resp B/P (MAP) Pulse Ox O2 Delivery O2 Flow Rate FiO2 08/30/17 17:34 98.5 106 17 156/105 (122) 98 Intake and Output 08/30/17 08/30/17 08/30/17 07:59 15:59 23:59 Intake Total 240 ml Balance 240 ml Assessment & Plan Problem List: (1) Psychotic disorder ICD Codes: F29 - Unspecified psychosis not due to a substance or known physiological condition Status: Acute Assessment & Plan Patient continues with persistent shinto delusions of wanting hallucinations from the same. Continue current treatment regimen. Continue to encourage patient to participate in groups and activities. Patient requesting assistance with shaving and clipping of toenails which has been ordered. Discharge planning in progress. Justification for Cont. Inpt. At risk for further decompensation at lower level of care Problem Qualifiers (1) Psychotic disorder: Qualified Codes: F28 - Other psychotic disorder not due to a substance or known physiological condition Jhoan Tabares MD Aug 30, 2017 17:42
[2017-08-31 06:19] VITALS: BP 145/89; PULSE 95; RESP 16; TEMP 98; O2SAT 96
[2017-08-31] MEDS: BENZTROPINE MESYLATE 1 MG TAB PO SCH ×2 (08:59→22:45)
[2017-08-31] MEDS: HALOPERIDOL 10 MG TAB PO SCH ×2 (08:59→22:43)
[2017-08-31] MEDS: NYSTATIN SUSP 500,000 U/5 ML CUP SWISH-SWAL SCH ×4 (08:59→22:43)
[2017-08-31] MEDS: HALOPERIDOL LACTATE 5 MG/ML AMP IM SCH ×3 (09:00→22:46)
--- NOTE | 2017-08-31 12:30 | HHI.PYPN ---
Subjective Remarks Patient seen and examined with nurse in coverage for Dr. Tabares. Chart reviewed. Case discussed with nursing staff. On my examination today, the patient is calm and cooperative. He tells me that he is "fine, everything is excellent." He remains somewhat internally preoccupied and perseverates on delusional themes regarding "Logan," "thumper," and "Mother Karla," as before. No reported side effects from medications. No physical complaints. Review of Systems ROS Limitations: Psychotic, Poor Historian Except as stated in HPI: all other systems reviewed are Neg Mental Status Examination Appearance: Appropriate Consciousness: Alert Orientation: Person, Place (at least) Motor Activity: Other (continues to display a resting tremor. No other motoric abnormalities noted.) Speech: Unremarkable Language: Adequate Fund of Knowledge: Adequate Attention and Concentration: Inadequate Memory: Unremarkable Mood: Appropriate, Other ("excellent") Affect: Appropriate Thought Process & Associations: Circumstantial Thought Content: Bizarre thinking, Hallucinations, Delusional Hallucination Type: Auditory Delusion Type: Bizarre, Other (lutheran) Suicidal Ideation: No Suicidal Plan: No Suicidal Intention: No Homicidal Ideation: No Homicidal Plan: No Homicidal Intention: No Insight: Poor Judgment: Poor Results Labs Date/Time Source Procedure Growth Status 07/23/17 20:14 Blood Peripheral Aerobic Blood Culture - Final NO GROWTH IN 5 DAYS Complete 07/23/17 20:14 Anaerobic Blood Culture - Final Staphylococcus Epidermidis Complete Labs reviewed. Vitals/IOs Vital Signs Date Time Temp Pulse Resp B/P (MAP) Pulse Ox O2 Delivery O2 Flow Rate FiO2 08/31/17 06:19 98.0 95 16 145/89 (107) 96 Intake and Output 08/31/17 08/31/17 09/01/17 08:00 16:00 00:00 Intake Total 240 ml 240 ml Balance 240 ml 240 ml Assessment & Plan Problem List: (1) Psychotic disorder ICD Codes: F29 - Unspecified psychosis not due to a substance or known physiological condition Status: Acute Assessment & Plan Continue current psychotropics as ordered. Continue to monitor on the inpatient unit. Continue other medications and care as ordered. Justification for Cont. Inpt. Impairment in reality construction. Risk for decompensation in less restrictive environment. Discharge Planning Per Dr. Tabares Problem Qualifiers (1) Psychotic disorder: Qualified Codes: F28 - Other psychotic disorder not due to a substance or known physiological condition Juvenal Chávez MD Aug 31, 2017 12:30
[2017-08-31 18:00] VITALS: BP 162/96; PULSE 89; RESP 18; TEMP 98.1; O2SAT 98
[2017-09-01] MEDS: HALOPERIDOL 10 MG TAB PO SCH ×2 (08:38→20:49)
[2017-09-01] MEDS: BENZTROPINE MESYLATE 1 MG TAB PO SCH ×2 (08:38→20:49)
[2017-09-01] MEDS: NYSTATIN SUSP 500,000 U/5 ML CUP SWISH-SWAL SCH ×4 (08:38→20:49)
--- NOTE | 2017-09-01 12:42 | HHI.PYPN ---
Subjective Remarks Patient was seen and case discussed with nursing. Patient remains grossly psychotic and internally preoccupied. Various bizarre delusions including fireball whispering to him in his left ear. His behaving well on the unit. Appears slightly more coherent compared to her last visit. Compliant with medications and tolerating it well Mental Status Examination Appearance: Appropriate Consciousness: Alert Orientation: Person, Place (at least) Motor Activity: Other (continues to display a resting tremor. No other motoric abnormalities noted.) Speech: Unremarkable Language: Adequate Fund of Knowledge: Adequate Attention and Concentration: Inadequate Memory: Unremarkable Mood: Appropriate, Other ("excellent") Affect: Appropriate Thought Process & Associations: Circumstantial Thought Content: Bizarre thinking, Hallucinations, Delusional Hallucination Type: Auditory Delusion Type: Bizarre, Other (catholic) Suicidal Ideation: No Suicidal Plan: No Suicidal Intention: No Homicidal Ideation: No Homicidal Plan: No Homicidal Intention: No Insight: Poor Judgment: Poor Results Labs Date/Time Source Procedure Growth Status 07/23/17 20:14 Blood Peripheral Aerobic Blood Culture - Final NO GROWTH IN 5 DAYS Complete 07/23/17 20:14 Anaerobic Blood Culture - Final Staphylococcus Epidermidis Complete Vitals/IOs Vital Signs Date Time Temp Pulse Resp B/P (MAP) Pulse Ox O2 Delivery O2 Flow Rate FiO2 08/31/17 18:00 98.1 89 18 162/96 (118) 98 Assessment & Plan Problem List: (1) Psychotic disorder ICD Codes: F29 - Unspecified psychosis not due to a substance or known physiological condition Status: Acute Assessment & Plan Continue current treatment plan Justification for Cont. Inpt. Patient would decompensate in a less restrictive setting Problem Qualifiers (1) Psychotic disorder: Qualified Codes: F28 - Other psychotic disorder not due to a substance or known physiological condition Manny Camacho DO Sep 01, 2017 12:42
[2017-09-01] MEDS: ACETAMINOPHEN 325 MG TAB PO PRN ×2 (14:52→20:15)
[2017-09-01 18:45] VITALS: BP 140/82; PULSE 96; RESP 18; TEMP 98.7; O2SAT 97
[2017-09-01] MEDS: HALOPERIDOL LACTATE 5 MG/ML AMP IM SCH (21:00)
[2017-09-02 05:48] VITALS: BP 162/98; PULSE 91; RESP 16; TEMP 98.2; O2SAT 96
[2017-09-02] MEDS: HALOPERIDOL LACTATE 5 MG/ML AMP IM SCH ×2 (09:00→21:00)
[2017-09-02] MEDS: BENZTROPINE MESYLATE 1 MG TAB PO SCH ×2 (09:21→20:54)
[2017-09-02] MEDS: HALOPERIDOL 10 MG TAB PO SCH ×2 (09:21→20:54)
[2017-09-02] MEDS: NYSTATIN SUSP 500,000 U/5 ML CUP SWISH-SWAL SCH ×4 (09:21→20:54)
--- NOTE | 2017-09-02 15:18 | HHI.PYPN ---
Subjective Remarks Patient was seen and case discussed with nursing. Patient is pleasant and cooperative with exam. Behaving well on the unit. Patient continues to persist with various fixed bizarre hoahaoism delusions. Compliant with medications and behaving well on the unit Mental Status Examination Appearance: Appropriate Consciousness: Alert Orientation: Person, Place (at least) Motor Activity: Other (continues to display a resting tremor. No other motoric abnormalities noted.) Speech: Unremarkable Language: Adequate Fund of Knowledge: Adequate Attention and Concentration: Inadequate Memory: Unremarkable Mood: Appropriate, Other ("excellent") Affect: Appropriate Thought Process & Associations: Circumstantial Thought Content: Bizarre thinking, Hallucinations, Delusional Hallucination Type: Auditory Delusion Type: Bizarre, Other (hoahaoism) Suicidal Ideation: No Suicidal Plan: No Suicidal Intention: No Homicidal Ideation: No Homicidal Plan: No Homicidal Intention: No Insight: Poor Judgment: Poor Results Labs Date/Time Source Procedure Growth Status 07/23/17 20:14 Blood Peripheral Aerobic Blood Culture - Final NO GROWTH IN 5 DAYS Complete 07/23/17 20:14 Anaerobic Blood Culture - Final Staphylococcus Epidermidis Complete Vitals/IOs Vital Signs Date Time Temp Pulse Resp B/P (MAP) Pulse Ox O2 Delivery O2 Flow Rate FiO2 09/02/17 05:48 98.2 91 16 162/98 (119) 96 Intake and Output 09/02/17 09/02/17 09/03/17 08:00 16:00 00:00 Intake Total 720 ml Balance 720 ml Assessment & Plan Problem List: (1) Psychotic disorder ICD Codes: F29 - Unspecified psychosis not due to a substance or known physiological condition Status: Acute Assessment & Plan Continue current treatment plan Justification for Cont. Inpt. Patient would decompensate in a less restrictive setting Problem Qualifiers (1) Psychotic disorder: Qualified Codes: F28 - Other psychotic disorder not due to a substance or known physiological condition Manny Camacho DO Sep 02, 2017 15:18
[2017-09-02 19:06] VITALS: BP 165/86; PULSE 84; RESP 16; TEMP 98.5; O2SAT 99
[2017-09-03 05:55] VITALS: BP_SYST 149; BP_SYST 155; BP_SYST 157; BP_DIAS 100; BP_DIAS 96; PULSE 87; RESP 18; TEMP 97.9; O2SAT 97
[2017-09-03] MEDS: HALOPERIDOL 10 MG TAB PO SCH ×2 (08:29→22:41)
[2017-09-03] MEDS: NYSTATIN SUSP 500,000 U/5 ML CUP SWISH-SWAL SCH ×4 (08:29→22:42)
[2017-09-03] MEDS: BENZTROPINE MESYLATE 1 MG TAB PO SCH ×2 (08:29→22:41)
[2017-09-03] MEDS: HALOPERIDOL LACTATE 5 MG/ML AMP IM SCH ×2 (08:29→21:00)
[2017-09-03] MEDS: cloNIDine HCL 0.1 MG TAB PO PRN (08:30)
--- NOTE | 2017-09-03 11:49 | PD.TTN ---
Patient Problems 1. Discharge planning 2. Medication compliance 3. Knowledge deficit 4. Lack of coping skills Progress Toward Goals Provider Present: Dr. Master Cole, Dr. Binu Tabares Provider Input: 09/02/18patient overall remains delusional but med compliant , relgiously pre-occupied 08/27/17 now on 2600 encouraged to engage, he appears doing well and is pleasant and compliant but still symptomatic 08/22/17 patient remains delusional and in need for terminal computer operator care or state hospital 08/20/17 patient has been medically cleared, on 2600 unit, would beenfit from placement at high risk for decompensation 08/17/17 still psychotic and need a safe and stable living arrangement to accomodate his medical and mental health needs 08/13 Patient is still very psychotic and in need for psychiatric and medical stablization 08/08 patient is now taking his psychotropic meds but no medical meds - he is not medically cleared and is still awaiting on medical work up results 07/31/17 patient is now refusing all meds and treatment 07/23/2017 - Dr. Tabares reports the patient remains compliant with medications and without behavoral disturbance. 07/18/2017 - Patient remains a placement issue, compliant with medications, and without behavioral disturbance. 07/02/17 Patient remains psychotic and delusional. 06/27/2017 Patient will require placement in an Assisted Living Facility. He has a histroy of TBI, and fixed delusions that are hinduism nature. 06/20/2017; patient is at the highest dosage of medication and might need to have an additional med added to level off his mood/behavior. Patient is new to unit and will be starting on a medication regiment. Will monitor progress of patient throughout the week. 06/18/2017 - Dr. Tabares reports the patient would like placement in an [facility]. 06/25 - Patient will continue to be looked for in regards to placement. Not behavioral issues on the unit. 07/04/17 Patient continues to meet criteria. Patient has court tomorrow Nurse(s) Present: TONY Lara Nurse(s) Input: 06/20/2017; Patient is taking his medication, eating meals; however patient displays manic behavior, up doing the night hours with limited sleep. 06/25 patient is noted to have no behavioral issues on the unit and has been compliant with medications. denies side effects 07/04/17 Patient's nurse Sara reports patient is religioulsy preoccupied, continues to practice ballet exercies. Medication compliant. Patient is calm and cooperative. Psychiatric Counselors Present: Jenny Schroeder LCSW, Marbella Britton, [facility], Simin Trejo, [facility], Linda Chandler, [facility] Psych Therapist Input: 09/02/18 patient remains on hospital list - he states he does not like groups as they trigger him to become religiously occupied- he states "God is my better switchbox assembler, he has healed me, I do not need any therapy or groups" 08/27/17 patient remains on hospital list, doing well on 2600 unit , but does not like groups 08/22/17 remains delusional , state referral sent, still working on placement however keeps being denied 08/20/17 patient is asking to be discharged to self, but is very delusional and religiously pre-occupied believing Logan will assist him 08/17/17 patient remains delusional, grandiose and lacking some insight but is med compliant and agreeing to a placement, once one is found or arranged, discharge counselors Tete are assisting with working with nursing homes and will try Good Sikh today 08/13 very delusional\\ he agrees to go to outside and has been walking hallway more often, he hates the TV because it has bad intentions and therefore sits without anything by self in room often, encouraged to read but he appears to deny any activity as it triggers more delusions - he is on the State list for [facility] however counselors continue working on a fci placement which could accomodate him at this time many places have denied him again 08/08 patient is referred for State [facility] but may be able to go to a placement if one is suitable and able to meet needs 07/31/17 patient is delusional and medically not stable 07/23/2017 - Patient remains pleasant, religiously preoccupied, and delusional. 07/18/2017 - Counselor reported that the patient remains delusional and religiously preoccupied. Patient's packet was [facility] to [facility], [facility]. 07/02/17 Patient remains medication compliant and continues to isolate. He does not saocialize with peers or staff. 06/27/2017 Counselor will continue to search for approparit placement for this patient, 06/20/2017 Counselor will begin the process for finding appropriate placement Counselor will be in contact with family memebers to recieve collateral information in regards to patient's progress. 06-18-2017 - Counselor has faxed [facility] packet [facility]. Counselor called [facility] and there are no beds available at this time. 06/25 patient is cooperative and calm on the unit and counselor will look for placement. Patient does not socialize with peers but is pleasant. 07/04/17 Patient is medication compliant. Patient presents calm, cooperative, affect appropriate. patient's speech is clear, and organized. Patient does present religiously preoccupied. Patient isolates, on unit Group Spec/RT/OT/SCHMIDT Present: Bel Velázquez, GPS, Teresa Dexter SCHMIDT, Kane Solis, OT, Zen Gallego, BRAYAN Group Spec/RT/OT/SCHMIDT Input: 09/03/17 isolates to self but comes out of for fresh air and food 08/27/17 patient comes outside but does not participate 08/22/17 does not attend grHazelMailps, continues to isolate, goes outside at times 08/20/17 attends select groups keeps to self 08/13 isolates to room and does not attend groups 08/08 patient is not attending groups and not medically cleared and on contact precautions 07/1617 does not attend 07/23/2017 - Patient refuses to attend groups. 07/18/2017 - Patient refuses to attend groups. 07/02/17 Patient isolates to his room and the only group he has attended so far is coffee shop. 06/27/2017 Patient refuses most groups, although he will occasionally attemd fresh air and snack time. 06/20/2017: Attends most groups, very cooperate, very hyperverbal Patient is new to unit and has not attend groups yet. 06-18-2017 - Patient attends select groups and his behavior is appropriate. 07/04/17 Patient attends exercise occasionally Discharge Plan SMA Patient will be discharged to an appropriate [facility] when accepted. Documentation Scribe: Simin Trejo [facility] Date Resolved: Jul 23, 2017 Jenny Schroeder LCSW Sep 03, 2017 11:49
[2017-09-03] MEDS: ACETAMINOPHEN 325 MG TAB PO PRN (14:42)
[2017-09-03 18:13] VITALS: BP 134/88; PULSE 82; RESP 18; TEMP 97.5; O2SAT 99
--- NOTE | 2017-09-03 18:53 | HHI.PYPN ---
Subjective Remarks Patient seen for follow-up, chart reviewed. Discussion nursing staff reported the patient had tended to participate in group recently and the patient had contacted his brother as well. Patient was found in the room having lunch was calm and cooperative interview today. Patient states that he had been feeling "excellent" denies any physical symptoms at this time. Patient reports that he had attempted to reach out to his brother whom he had lived with prior to his hospitalization but was unsuccessful but then reports that the brother had called him back patient expressed wanting to return back to the home with his brother. He states that the brother had told him he would "think about it" referring to accessing patient back into the home. Patient continued was less preoccupation stating that Logan had "done something" to have his brother called him back. Review of Systems Except as stated in HPI: all other systems reviewed are Neg Mental Status Examination Appearance: Appropriate Consciousness: Alert Orientation: Person, Place (at least) Motor Activity: Other (continues to display a resting tremor. No other motoric abnormalities noted.) Speech: Unremarkable Language: Adequate Fund of Knowledge: Adequate Attention and Concentration: Inadequate Memory: Unremarkable Mood: Appropriate, Other ("excellent") Affect: Appropriate Thought Process & Associations: Circumstantial Thought Content: Bizarre thinking, Hallucinations, Delusional Hallucination Type: Auditory Delusion Type: Bizarre, Other (uatsdin) Suicidal Ideation: No Suicidal Plan: No Suicidal Intention: No Homicidal Ideation: No Homicidal Plan: No Homicidal Intention: No Insight: Poor Judgment: Poor Results Labs Date/Time Source Procedure Growth Status 07/23/17 20:14 Blood Peripheral Aerobic Blood Culture - Final NO GROWTH IN 5 DAYS Complete 07/23/17 20:14 Anaerobic Blood Culture - Final Staphylococcus Epidermidis Complete Vitals/IOs Vital Signs Date Time Temp Pulse Resp B/P (MAP) Pulse Ox O2 Delivery O2 Flow Rate FiO2 09/03/17 18:13 97.5 82 18 134/88 (103) 99 Intake and Output 09/03/17 09/03/17 09/04/17 08:00 16:00 00:00 Intake Total 240 ml Balance 240 ml Assessment & Plan Problem List: (1) Psychotic disorder ICD Codes: F29 - Unspecified psychosis not due to a substance or known physiological condition Status: Acute Assessment & Plan Patient at this time continue with uatsdin preoccupation and delusions along with auditory hallucinations of the same. Nursing staff was able to confirm with pharmacist that patient medications can be substituted with in-house formulation. Will consult infectious disease consultants for confirmation patient can be restarted on HAART medications. Continue current treatment. Continue monitoring with behavior. Continue to encourage patient to participate in groups and activities on the unit. Discharge planning in progress. Justification for Cont. Inpt. At risk for further decompensation at lower level of care. Discharge Planning State referral Problem Qualifiers (1) Psychotic disorder: Qualified Codes: F28 - Other psychotic disorder not due to a substance or known physiological condition Jhoan Tabares MD Sep 03, 2017 18:53
[2017-09-04 08:00] VITALS: BP 157/100; PULSE 98; RESP 18; TEMP 98.2; O2SAT 99
[2017-09-04] MEDS: BENZTROPINE MESYLATE 1 MG TAB PO SCH ×2 (08:48→22:18)
[2017-09-04] MEDS: cloNIDine HCL 0.1 MG TAB PO PRN ×2 (08:48→18:04)
[2017-09-04] MEDS: HALOPERIDOL 10 MG TAB PO SCH ×2 (08:48→22:17)
[2017-09-04] MEDS: NYSTATIN SUSP 500,000 U/5 ML CUP SWISH-SWAL SCH ×4 (08:49→22:17)
[2017-09-04] MEDS: HALOPERIDOL LACTATE 5 MG/ML AMP IM SCH ×2 (08:49→21:00)
[2017-09-04] MEDS: CALCIUM/VITAMIN D 250 MG/125 U TAB PO SCH ×2 (08:49→22:17)
--- NOTE | 2017-09-04 17:39 | HHI.PYPN ---
Subjective Remarks Patient seen for follow, chart reviewed. There has been no behavioral changes with patient continues to be religiously preoccupied. Patient found ambulating on the unit, calm and cooperative. Patient states that he attempted to call his brother several times this morning attempting to confirm whether he can return back to live there. Possibility of patient resuming HAART medications was discussed which he agrees and is aware that patient will be visited by infectious disease quantitative consultant to review restarting of treatment. Patient continues to endorse episcopalian preoccupation and delusions. Review of Systems Neurologic: COMPLAINS OF: Tremor (Tremor bilaterally likely secondary to antipsychotics.) Except as stated in HPI: all other systems reviewed are Neg Mental Status Examination Appearance: Appropriate Consciousness: Alert Orientation: Person, Place (at least) Motor Activity: Other (continues to display a resting tremor. No other motoric abnormalities noted.) Speech: Unremarkable Language: Adequate Fund of Knowledge: Adequate Attention and Concentration: Inadequate Memory: Unremarkable Mood: Appropriate, Other ("excellent") Affect: Appropriate Thought Process & Associations: Circumstantial Thought Content: Bizarre thinking, Hallucinations, Delusional Hallucination Type: Auditory Delusion Type: Bizarre, Other (episcopalian) Suicidal Ideation: No Suicidal Plan: No Suicidal Intention: No Homicidal Ideation: No Homicidal Plan: No Homicidal Intention: No Insight: Poor Judgment: Poor Results Labs Date/Time Source Procedure Growth Status 07/23/17 20:14 Blood Peripheral Aerobic Blood Culture - Final NO GROWTH IN 5 DAYS Complete 07/23/17 20:14 Anaerobic Blood Culture - Final Staphylococcus Epidermidis Complete Vitals/IOs Vital Signs Date Time Temp Pulse Resp B/P (MAP) Pulse Ox O2 Delivery O2 Flow Rate FiO2 09/04/17 08:00 98.2 98 18 157/100 (119) 99 Intake and Output 09/04/17 09/04/17 09/05/17 08:00 16:00 00:00 Intake Total 240 ml 240 ml Balance 240 ml 240 ml Assessment & Plan Problem List: (1) Psychotic disorder ICD Codes: F29 - Unspecified psychosis not due to a substance or known physiological condition Status: Acute Assessment & Plan Patient this time we will has no behavioral disturbances to continue with episcopalian preoccupation and delusions. Patient noted with tremor bilaterally likely secondary to antipsychotic side effects. Will increase benztropine to 1 mg p.o. twice daily for EPS. Infectious disease consult pending. Continue to monitor mood and behavior. Continue current treatment. Discharge planning in progress. Justification for Cont. Inpt. At risk for further decompensation at lower level of care Discharge Planning State referral Problem Qualifiers (1) Psychotic disorder: Qualified Codes: F28 - Other psychotic disorder not due to a substance or known physiological condition Jhoan Tabares MD Sep 04, 2017 17:39
[2017-09-04 18:11] VITALS: BP 160/95; PULSE 96; RESP 19; TEMP 98; O2SAT 99
[2017-09-05 06:35] VITALS: BP 148/94; PULSE 79; RESP 16; TEMP 97.6; O2SAT 97
[2017-09-05] MEDS: HALOPERIDOL LACTATE 5 MG/ML AMP IM SCH ×2 (09:00→20:56)
[2017-09-05] MEDS: NYSTATIN SUSP 500,000 U/5 ML CUP SWISH-SWAL SCH ×4 (09:13→20:54)
[2017-09-05] MEDS: CALCIUM/VITAMIN D 250 MG/125 U TAB PO SCH ×2 (09:13→22:22)
[2017-09-05] MEDS: BENZTROPINE MESYLATE 1 MG TAB PO SCH ×2 (09:13→20:53)
[2017-09-05] MEDS: HALOPERIDOL 10 MG TAB PO SCH ×2 (09:13→20:53)
--- NOTE | 2017-09-05 10:17 | PD.TTN ---
Patient Problems 1. Discharge planning 2. Medication compliance 3. Knowledge deficit 4. Lack of coping skills Progress Toward Goals Provider Present: Dr. Master Cole, Dr. Binu Tabares Provider Input: 09/05/17 - Patient remains compliant with medications, religiously preoccupied, and without behavioral outburst. 09/02/18patient overall remains delusional but med compliant , relgiously pre-occupied 08/27/17 now on 2600 encouraged to engage, he appears doing well and is pleasant and compliant but still symptomatic 08/22/17 patient remains delusional and in need for exterminator care or state hospital 08/20/17 patient has been medically cleared, on 2600 unit, would beenfit from placement at high risk for decompensation 08/17/17 still psychotic and need a safe and stable living arrangement to accomodate his medical and mental health needs 08/13 Patient is still very psychotic and in need for psychiatric and medical stablization 08/08 patient is now taking his psychotropic meds but no medical meds - he is not medically cleared and is still awaiting on medical work up results 07/31/17 patient is now refusing all meds and treatment 07/23/2017 - Dr. Tabares reports the patient remains compliant with medications and without behavoral disturbance. 07/18/2017 - Patient remains a placement issue, compliant with medications, and without behavioral disturbance. 07/02/17 Patient remains psychotic and delusional. 06/27/2017 Patient will require placement in an Assisted Living Facility. He has a histroy of TBI, and fixed delusions that are synagogue nature. 06/20/2017; patient is at the highest dosage of medication and might need to have an additional med added to level off his mood/behavior. Patient is new to unit and will be starting on a medication regiment. Will monitor progress of patient throughout the week. 06/18/2017 - Dr. Tabares reports the patient would like placement in an [facility]. 06/25 - Patient will continue to be looked for in regards to placement. Not behavioral issues on the unit. 07/04/17 Patient continues to meet criteria. Patient has court tomorrow Nurse(s) Present: TONY Lara Nurse(s) Input: 06/20/2017; Patient is taking his medication, eating meals; however patient displays manic behavior, up doing the night hours with limited sleep. 06/25 patient is noted to have no behavioral issues on the unit and has been compliant with medications. denies side effects 07/04/17 Patient's nurse Sara reports patient is religioulsy preoccupied, continues to practice ballet exercies. Medication compliant. Patient is calm and cooperative. Psychiatric Counselors Present: Jenny Schroeder COIN BOX INSPECTOR, Marbella Britton, [facility], Simin Trejo, [facility], Linda Chandler, [facility] Psych Therapist Input: 09/05/17 - Patient continues to focus on synagogue preoccupations. He remains calm and pleasant. 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 helper, he has healed me, I do not need any therapy or groups" 08/27/17 patient remains on hospital list, doing well on 2600 unit , but does not like groups 08/22/17 remains delusional , state referral sent, still working on placement however keeps being denied 08/20/17 patient is asking to be discharged to self, but is very delusional and religiously pre-occupied believing Logan will assist him 08/17/17 patient remains delusional, grandiose and lacking some insight but is med compliant and agreeing to a placement, once one is found or arranged, discharge counselors Tete are assisting with working with nursing homes and will try Good Hoahaoism today 08/13 very delusional\\ he agrees to go to outside and has been walking hallway more often, he hates the TV because it has bad intentions and therefore sits without anything by self in room often, encouraged to read but he appears to deny any activity as it triggers more delusions - he is on the State list for [facility] however counselors continue working on a exterminator placement which could accomodate him at this time many places have denied him again 08/08 patient is referred for [facility] but may be able to go to a placement if one is suitable and able to meet needs 07/31/17 patient is delusional and medically not stable 07/23/2017 - Patient remains pleasant, religiously preoccupied, and delusional. 07/18/2017 - Counselor reported that the patient remains delusional and religiously preoccupied. Patient's packet was [facility] to [facility], and [facility]. 07/02/17 Patient remains medication compliant and continues to isolate. He does not saocialize with peers or staff. 06/27/2017 Counselor will continue to search for approparit placement for this patient, 06/20/2017 Counselor will begin the process for finding appropriate placement Counselor will be in contact with family memebers to recieve collateral information in regards to patient's progress. 06-18-2017 - Counselor has faxed patient's packet to [facility] for admissions review. Counselor called [facility] and there are no beds available at this time. 06/25 patient is cooperative and calm on the unit and counselor will look for placement. Patient does not socialize with peers but is pleasant. 07/04/17 Patient is medication compliant. Patient presents calm, cooperative, affect appropriate. patient's speech is clear, and organized. Patient does present religiously preoccupied. Patient isolates, on unit Group Spec/RT/OT/SCHMIDT Present: Bel Velázquez, GPS, Teresa Dexter SCHMIDT, Kane Solis, OT, Zen Gallego, BRAYAN Group Spec/RT/OT/SCHMIDT Input: 09/05/17 - Patient is unable to tolerate groups. 09/03/17 isolates to self but comes out of for fresh air and food 08/27/17 patient comes outside but does not participate 08/22/17 does not attend [place]oom[place]!, continues to isolate, goes outside at times 08/20/17 attends select groups keeps to self 08/13 isolates to room and does not attend groups 08/08 patient is not attending groups and not medically cleared and on contact precautions 07/1617 does not attend 07/23/2017 - Patient refuses to attend groups. 07/18/2017 - Patient refuses to attend groups. 07/02/17 Patient isolates to his room and the only group he has attended so far is coffee shop. 06/27/2017 Patient refuses most groups, although he will occasionally attemd fresh air and snack time. 06/20/2017: Attends most groups, very cooperate, very hyperverbal Patient is new to unit and has not attend groups yet. 06-18-2017 - Patient attends select groups and his behavior is appropriate. 07/04/17 Patient attends exercise occasionally Discharge Plan SMA Patient will be discharged to [facility] when accepted. Documentation Scribe: DANITZA Hitchcock Date Resolved: Sep 05, 2017 Simin Trejo Sep 05, 2017 10:17
--- NOTE | 2017-09-05 15:23 | HHI.PR ---
Addendum to Inpatient Note Additional Information reconsulted full note to follow Jammie Palacios MD Sep 05, 2017 15:23
--- NOTE | 2017-09-05 16:53 | HHI.PYPN ---
Subjective Remarks Patient seen for follow-up, chart reviewed. Discussion with nursing staff reported no change with patient. Patient was found lying on hospital bed, calm and cooperative. He reports that he has been feeling "excellent", denies any physical complaints, continues to agree with recommendations of re-starting HIV medications. He continues to endorse continued samaritan preoccupation and AH from the same. He is noted to have less tremor today. Review of Systems Except as stated in HPI: all other systems reviewed are Neg Mental Status Examination Appearance: Appropriate Consciousness: Alert Orientation: Person, Place (at least) Motor Activity: Other (continues to display a resting tremor. No other motoric abnormalities noted.) Speech: Unremarkable Language: Adequate Fund of Knowledge: Adequate Attention and Concentration: Inadequate Memory: Unremarkable Mood: Appropriate, Other ("excellent") Affect: Appropriate Thought Process & Associations: Circumstantial Thought Content: Bizarre thinking, Hallucinations, Delusional Hallucination Type: Auditory Delusion Type: Bizarre, Other (samaritan) Suicidal Ideation: No Suicidal Plan: No Suicidal Intention: No Homicidal Ideation: No Homicidal Plan: No Homicidal Intention: No Insight: Poor Judgment: Poor Results Labs Date/Time Source Procedure Growth Status 07/23/17 20:14 Blood Peripheral Aerobic Blood Culture - Final NO GROWTH IN 5 DAYS Complete 07/23/17 20:14 Anaerobic Blood Culture - Final Staphylococcus Epidermidis Complete Vitals/IOs Vital Signs Date Time Temp Pulse Resp B/P (MAP) Pulse Ox O2 Delivery O2 Flow Rate FiO2 09/05/17 06:35 97.6 79 16 148/94 (112) 97 Automatic Cuff Assessment & Plan Problem List: (1) Psychotic disorder ICD Codes: F29 - Unspecified psychosis not due to a substance or known physiological condition Status: Acute Assessment & Plan Patient at this time continues to comply with treatment, denies any physical complaint but continues with marked samaritan delusions; no behavioral disturbances. Continue current treatment. Infectious disease consult and input appreciated. Continue to monitor mood and behavior; discharge planning in progress. Justification for Cont. Inpt. At risk for further decompensation at lower level of care. Discharge Planning State referral Problem Qualifiers (1) Psychotic disorder: Qualified Codes: F28 - Other psychotic disorder not due to a substance or known physiological condition Jhoan Tabares MD Sep 05, 2017 16:53
[2017-09-05 18:00] VITALS: BP 148/91; PULSE 93; RESP 16; TEMP 98.4; O2SAT 98
--- NOTE | 2017-09-05 18:44 | HHI.IDPN ---
Subjective Subjective Remarks reconsulted re HAART Doing well Resolved rash afebrile NO new c/o Persistetn lympahcytosis Antibiotics none Allergies: Coded Allergies: Sulfa (Sulfonamide Antibiotics) (Unverified Allergy, Severe, Hives, ) Objective . Vital Signs Date Time Temp Pulse Resp B/P (MAP) Pulse Ox O2 Delivery O2 Flow Rate FiO2 09/05/17 18:00 98.4 93 16 148/91 (110) 98 09/05/17 06:35 97.6 79 16 148/94 (112) 97 Automatic Cuff Imaging Vital Signs Date Time Temp Pulse Resp B/P (MAP) Pulse Ox O2 Delivery O2 Flow Rate FiO2 09/05/17 18:00 98.4 93 16 148/91 (110) 98 09/05/17 06:35 97.6 79 16 148/94 (112) 97 Automatic Cuff Physical Exam CONSTITUTIONAL/GENERAL: This is an adequately nourished patient, in no apparent distress. Pt appears well SKIN: No jaundice, No rash EYES: Pupils equal and round and reactive. Extraocular motions intact. + coryza present ENT: Hearing grossly normal. Nose without bleeding or purulent drainage. Throat without visible erythema, exudates, masses, or lesions. No enanthema noted CARDIOVASCULAR: Regular rate and rhythm without murmurs, gallops, or rubs. No JVD. Peripheral pulses symmetric. RESPIRATORY/CHEST: Symmetric, unlabored respirations. Clear to auscultation. Breath sounds equal bilaterally. No wheezes, rales, or rhonchi. GASTROINTESTINAL: Abdomen soft, non-tender, nondistended. Tatum negative No hepato-splenomegaly, or palpable masses. No guarding. Bowel sounds present. MUSCULOSKELETAL: Extremities without clubbing, cyanosis, or edema. No joint tenderness or effusion noted. No calf tenderness. No mottling or clubbing. NEUROLOGICAL: Awake and alert. Motor and sensory grossly within normal limits. Follows commands. Clear speech . Moves all extremities. PSYCHIATRIC: No obvious anxiety/depression. no apparent hallucinations or other psychotic thought process. Assessment & Plan Remarks Wors[place] marked lymphacytosis: its > 20 K now HIV disease with CD4 > 400, off HAART - pt is now agreable to restart HAART VL 7 logs Fever and rash resolved Me[place], parvo and EBV serologies not cw culprit Low grade Staph epi bactremia, favouring contaminantion Leukocytosis exclusively 2/2 lymphocytosis Neutrophils are WNL will restart pt's HAART monitor smx Monitor LFTs MOnitor skin rash dw Dr Rayshawn Quijano pharmacist Jammie Palacios MD Sep 05, 2017 18:44
[2017-09-05] MEDS: hydrALAZINE HCL 25 MG TAB PO SCH (22:22)
[2017-09-06] MEDS: hydrALAZINE HCL 25 MG TAB PO SCH ×3 (04:49→22:00)
[2017-09-06 06:10] VITALS: BP 150/85; PULSE 86; RESP 20; TEMP 98.4; O2SAT 98
[2017-09-06] MEDS: HALOPERIDOL LACTATE 5 MG/ML AMP IM SCH ×2 (08:41→21:00)
[2017-09-06] MEDS: NYSTATIN SUSP 500,000 U/5 ML CUP SWISH-SWAL SCH ×4 (08:41→20:44)
[2017-09-06] MEDS: HALOPERIDOL 10 MG TAB PO SCH ×2 (08:41→20:44)
[2017-09-06] MEDS: BENZTROPINE MESYLATE 1 MG TAB PO SCH ×2 (08:41→20:44)
[2017-09-06] MEDS ORDERED: TENOFOVIR ALAFENAMIDE PO SCH (09:00)
[2017-09-06] MEDS ORDERED: RILPIVIRINE PO SCH (09:00)
[2017-09-06] MEDS: NIFEdipine 90 MG SUSTAINED RELEASE TAB PO SCH (09:00)
[2017-09-06] MEDS ORDERED: EMTRICITABINE PO SCH (09:00)
[2017-09-06] MEDS: LISINOPRIL 5 MG TAB PO SCH (09:34)
--- NOTE | 2017-09-06 12:40 | HHI.PR ---
Subjective Remarks Reconsult for uncontrolled HTN. Patient with Hx of HIV and HTN previously reluctant to medications, now agreeable with treatment. Patient is seen and examined in his room resting in bed in no acute distress. I discuss with him the fact that his BP has been high and the dangerous effects of prolonged HTN. Discuss effects on heart, brain and kidneys he responds that he has always had high BP and if this is the end of him it will be fine because he will go [facility]. He tells me that he is a uatsdin and that he will be okay. He denies any headache, visual changes, dizziness, N/V/D, chest pain, cough or SOB. Objective Vitals Vital Signs Date Time Temp Pulse Resp B/P (MAP) Pulse Ox O2 Delivery O2 Flow Rate FiO2 09/06/17 06:10 98.4 86 20 150/85 (106) 98 09/05/17 18:00 98.4 93 16 148/91 (110) 98 Imaging Last Impressions Brain MRI 08/23/17 0000 Signed Impressions: Service Date/Time: August 15:16 - CONCLUSION: 1. 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 2. No findings to indicate acute cortical infarction are seen. 3. Scattered areas of increased T2 signal in the white matter most consistent with microvascular ischemic demyelinative change. 4. No abnormal enhancement identified within the brain parenchyma. Figueroa Nina MD Chest CT 08/08/17 0000 Signed Impressions: Service Date/Time: Tuesday, August 08, 2017 20:14 - CONCLUSION: 1. No acute findings. No adenopathy or effusion. Wesly Chapin MD Abdomen/Pelvis CT 08/08/17 0000 Signed Impressions: Service Date/Time: Tuesday, August 08, 2017 20:14 - CONCLUSION: 1. No acute findings. No adenopathy. Mild constipation. Wesly Chapin MD Liver Ultrasound 07/26/17 0000 Signed Impressions: Service Date/Time: July 16:09 - CONCLUSION: 1. Unremarkable abdominal ultrasound examination. Randall Patten MD Chest X-Ray 07/23/17 1850 Signed Impressions: Service Date/Time: Sunday, July 23, 2017 19:34 - CONCLUSION: Normal examination. Sherif Steel MD Head CT 06/20/17 0000 Signed Impressions: Service Date/Time: June 03:11 - CONCLUSION: 1. No acute hemorrhage or mass effect. 2. Areas of encephalomalacia in the left temporal and parietal lobes. 3. Mild to moderate atrophic change. Simone Wolf MD Renal Ultrasound 06/19/17 0000 Signed Impressions: Service Date/Time: Monday, June 19, 2017 16:47 - CONCLUSION: 1. Elevated velocities in the proximal and mid right renal artery. 2. Nonvisualization of the left mid renal artery with elevated velocity in the distal portion of the renal artery. 3. Echogenic kidneys characteristic of medical renal disease. There is no hydronephrosis. Simone Wolf MD Objective Remarks GENERAL: Well developed male. No acute distress. HEAD: Normocephalic EYES: PERRLA CARDIOVASCULAR: Regular rate and rhythm. RESPIRATORY: No accessory muscle use. Clear to auscultation. Breath sounds equal bilaterally. GASTROINTESTINAL: Abdomen soft, non-tender, nondistended. Normoactive bowel sounds. MUSCULOSKELETAL: Extremities without clubbing, cyanosis, or edema. No obvious deformities. Moves all extremities. NEUROLOGICAL: Awake and alert. Normal speech. Procedures NONE A/P Problem List: (1) Hypertension ICD Code: I10 - Essential (primary) hypertension Status: Chronic (2) HIV (human immunodeficiency virus infection) ICD Code: Z21 - Asymptomatic human immunodeficiency virus [HIV] infection status Status: Chronic (3) Viral rash ICD Code: B09 - Unspecified viral infection characterized by skin and mucous membrane lesions Status: Resolved Assessment and Plan 61-year-old male with primary medical history of HTN, HIV, bipolar, schizoaffective disorder who came into the hospital under [place] act for psychiatric evaluation. Per review of records [place] act report patient has absent temporal lobe syndrome, bipolar disorder, schizophrenia who has been having weight loss and poor hygiene sleeping in the park and restrooms. Patient has been combative to his caregiver. He is now admitted to inpatient psychiatry unit for further evaluation. Hospitalist following for medical management. BiPolar disorder, schizophrenia - Managed by psychiatry team HTN, uncontrolled - Noncompliance behavior. Has been refusing BP meds now agreeable to meds. - Restarted on Hydralazine 25mg Q8hr, and Lisinopril 5mg daily - Will also resume patients Procardia 90mg daily - Will continue to trend BP, if BP still elevated consider resuming Metoprolol. Noncompliance, HIV Hep C, history - ID consulted and HAART started once again. - Hep C, will need to follow up with GI for treatment. Lymphocytosis - Likely due to HIV and Hep C. DVT prop ambulatory Thank you for this reconsult, will continue to follow along. Problem Qualifiers (1) Hypertension: Qualified Codes: I10 - Essential (primary) hypertension Christal Boyd Sep 06, 2017 12:40
[2017-09-06] MEDS: CALCIUM/VITAMIN D 250 MG/125 U TAB PO SCH ×2 (13:28→21:00)
--- NOTE | 2017-09-06 14:48 | HHI.PYPN ---
Subjective Remarks Patient seen for follow-up, chart reviewed. Discussion nursing staff reported the patient continues to have gnosticism preoccupation, more visible on the unit now, cooperative. Patient was found lying also become cooperative. Patient continues to endorse gnosticism delusions and that he is in contact with Logan, the devil, "my yield engineer and fireball". Patient continues to comply with treatment including his antihypertensives and HAART medications. Review of Systems Except as stated in HPI: all other systems reviewed are Neg Mental Status Examination Appearance: Appropriate Consciousness: Alert Orientation: Person, Place (at least) Motor Activity: Other (continues to display a resting tremor. No other motoric abnormalities noted.) Speech: Unremarkable Language: Adequate Fund of Knowledge: Adequate Attention and Concentration: Inadequate Memory: Unremarkable Mood: Appropriate, Other ("excellent") Affect: Appropriate Thought Process & Associations: Circumstantial Thought Content: Bizarre thinking, Hallucinations, Delusional Hallucination Type: Auditory Delusion Type: Bizarre, Other (gnosticism) Suicidal Ideation: No Suicidal Plan: No Suicidal Intention: No Homicidal Ideation: No Homicidal Plan: No Homicidal Intention: No Insight: Poor Judgment: Poor Results Labs Date/Time Source Procedure Growth Status 07/23/17 20:14 Blood Peripheral Aerobic Blood Culture - Final NO GROWTH IN 5 DAYS Complete 07/23/17 20:14 Anaerobic Blood Culture - Final Staphylococcus Epidermidis Complete Vitals/IOs Vital Signs Date Time Temp Pulse Resp B/P (MAP) Pulse Ox O2 Delivery O2 Flow Rate FiO2 09/06/17 06:10 98.4 86 20 150/85 (106) 98 Assessment & Plan Problem List: (1) Psychotic disorder ICD Codes: F29 - Unspecified psychosis not due to a substance or known physiological condition Status: Acute Assessment & Plan Patient continues with gnosticism delusional preoccupation, continues to be compliant with medications and recommendations. Continue to monitor mood and behavior. Discharge planning in progress Justification for Cont. Inpt. At risk of further decompensation at lower level of care Discharge Planning State referral Problem Qualifiers (1) Psychotic disorder: Qualified Codes: F28 - Other psychotic disorder not due to a substance or known physiological condition Jhoan Tabares MD Sep 06, 2017 14:48
[2017-09-06 16:44] VITALS: BP 144/94; PULSE 124; RESP 18; TEMP 99.6; O2SAT 98
[2017-09-06] MEDS ORDERED: diphenhydrAMINE HCL 50 MG/ML VIAL ONE (16:53)
[2017-09-06] MEDS ORDERED: diphenhydrAMINE HCL 50 MG/ML VIAL IM ONE (17:15)
[2017-09-07 05:33] VITALS: BP 102/63; PULSE 101; RESP 18; TEMP 98.1; O2SAT 98
[2017-09-07] MEDS: hydrALAZINE HCL 25 MG TAB PO SCH ×3 (06:00→22:00)
[2017-09-07] MEDS: HALOPERIDOL 10 MG TAB PO SCH ×2 (08:47→20:54)
[2017-09-07] MEDS: BENZTROPINE MESYLATE 1 MG TAB PO SCH ×2 (08:47→20:54)
[2017-09-07] MEDS: NYSTATIN SUSP 500,000 U/5 ML CUP SWISH-SWAL SCH ×4 (08:47→20:54)
[2017-09-07] MEDS: HALOPERIDOL LACTATE 5 MG/ML AMP IM SCH ×2 (08:49→21:00)
[2017-09-07] MEDS: LISINOPRIL 5 MG TAB PO SCH (08:49)
[2017-09-07] MEDS: NIFEdipine 90 MG SUSTAINED RELEASE TAB PO SCH (08:50)
[2017-09-07 09:00] VITALS: BP 90/58; PULSE 90
--- NOTE | 2017-09-07 12:38 | HHI.IDPN ---
Subjective Subjective Remarks Pt was started on his HIV mds and within hours after taking a first pill developped diffuse erythematous rah He is now refusing to take any HIV therapy dw Dr Tabares: pt has no decision making capopacity Rash improved Breathin ok no other c/o Antibiotics none Allergies: Coded Allergies: Sulfa (Sulfonamide Antibiotics) (Unverified Allergy, Severe, Hives, ) emtricitabine (Verified Allergy, Severe, Skin Discoloration, 09/06/17) severe skin redness rilpivirine (Verified Allergy, Severe, Skin Discoloration, 09/06/17) severe skin redness tenofovir (Verified Allergy, Severe, Skin Discoloration, 09/06/17) severe skin redness Objective . Vital Signs Date Time Temp Pulse Resp B/P (MAP) Pulse Ox O2 Delivery O2 Flow Rate FiO2 09/07/17 09:00 90 90/58 (69) 09/07/17 05:33 98.1 101 18 102/63 (76) 98 09/06/17 16:44 99.6 124 18 144/94 (111) 98 Imaging Last Impressions Brain MRI 08/23/17 0000 Signed Impressions: Service Date/Time: August 15:16 - CONCLUSION: 1. 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 2. No findings to indicate acute cortical infarction are seen. 3. Scattered areas of increased T2 signal in the white matter most consistent with microvascular ischemic demyelinative change. 4. No abnormal enhancement identified within the brain parenchyma. Figueroa Nina MD Chest CT 08/08/17 0000 Signed Impressions: Service Date/Time: Tuesday, August 08, 2017 20:14 - CONCLUSION: 1. No acute findings. No adenopathy or effusion. Wesly Chapin MD Abdomen/Pelvis CT 08/08/17 0000 Signed Impressions: Service Date/Time: Tuesday, August 08, 2017 20:14 - CONCLUSION: 1. No acute findings. No adenopathy. Mild constipation. Wesly Chapin MD Liver Ultrasound 07/26/17 0000 Signed Impressions: Service Date/Time: July 16:09 - CONCLUSION: 1. Unremarkable abdominal ultrasound examination. Randall Patten MD Chest X-Ray 07/23/17 1850 Signed Impressions: Service Date/Time: Sunday, July 23, 2017 19:34 - CONCLUSION: Normal examination. Sherif Steel MD Head CT 06/20/17 0000 Signed Impressions: Service Date/Time: June 03:11 - CONCLUSION: 1. No acute hemorrhage or mass effect. 2. Areas of encephalomalacia in the left temporal and parietal lobes. 3. Mild to moderate atrophic change. Simone Wolf MD Renal Ultrasound 06/19/17 0000 Signed Impressions: Service Date/Time: Monday, June 19, 2017 16:47 - CONCLUSION: 1. Elevated velocities in the proximal and mid right renal artery. 2. Nonvisualization of the left mid renal artery with elevated velocity in the distal portion of the renal artery. 3. Echogenic kidneys characteristic of medical renal disease. There is no hydronephrosis. Simone Wolf MD Physical Exam CONSTITUTIONAL/GENERAL: This is an adequately nourished patient, in no apparent distress. Pt appears well SKIN: No jaundice, There is milld diffuse erythema involving BLE and torso Not much on the face EYES: Pupils equal and round and reactive. Extraocular motions intact. + coryza present ENT: Hearing grossly normal. Nose without bleeding or purulent drainage. Throat without visible erythema, exudates, masses, or lesions. No enanthema noted CARDIOVASCULAR: Regular rate and rhythm without murmurs, gallops, or rubs. No JVD. Peripheral pulses symmetric. RESPIRATORY/CHEST: Symmetric, unlabored respirations. Clear to auscultation. Breath sounds equal bilaterally. No wheezes, rales, or rhonchi. GASTROINTESTINAL: Abdomen soft, non-tender, nondistended. Tatum negative No hepato-splenomegaly, or palpable masses. No guarding. Bowel sounds present. MUSCULOSKELETAL: Extremities without clubbing, cyanosis, or edema. No joint tenderness or effusion noted. No calf tenderness. No mottling or clubbing. NEUROLOGICAL: Awake and alert. Motor and sensory grossly within normal limits. Follows commands. Clear speech . Moves all extremities. PSYCHIATRIC: No obvious anxiety/depression. no apparent hallucinations Assessment & Plan Remarks HIV disease with CD4 > 400, off HAART - pt is now agreable to restart HAART VL 7 logs Racsh o/w Odefsey ; severe reaction Pt has no decision making capacity Add all Odefsey components to allergy list (done) monitor smx Monitor LFTs MOnitor skin rash Genotype needs to be done prior to new HAART choice made dw Jammie Delgadillo MD Sep 07, 2017 12:38
[2017-09-07 13:10] VITALS: BP 106/72; PULSE 96
[2017-09-07] MEDS: CALCIUM/VITAMIN D 250 MG/125 U TAB PO SCH ×2 (13:13→21:00)
--- NOTE | 2017-09-07 14:01 | HHI.PR ---
Subjective Remarks Follow-up vist for hypertension. Patient seen and examined in room resting comfortably in bed. He denies any fevers, chills, nausea, vomiting, diarrhea, headache, cough or SOB. I discuss with patient the importance of BP control again, but he continues to say that it has been high to some time and does not understand why everyone is so concerned about it. he also tells me that he took his HIV pill yesterday and this made him feel like a Zombie. Discussed with nurse who tells me that patient had a reaction to HIV medication and developed a rash. He was given IM Benadryl for this. Objective Vitals Vital Signs Date Time Temp Pulse Resp B/P (MAP) Pulse Ox O2 Delivery O2 Flow Rate FiO2 09/07/17 13:10 96 106/72 (83) 09/07/17 09:00 90 90/58 (69) 09/07/17 05:33 98.1 101 18 102/63 (76) 98 09/06/17 16:44 99.6 124 18 144/94 (111) 98 Imaging Last Impressions Brain MRI 08/23/17 0000 Signed Impressions: Service Date/Time: August 15:16 - CONCLUSION: 1. 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 2. No findings to indicate acute cortical infarction are seen. 3. Scattered areas of increased T2 signal in the white matter most consistent with microvascular ischemic demyelinative change. 4. No abnormal enhancement identified within the brain parenchyma. Figueroa Nina MD Chest CT 08/08/17 0000 Signed Impressions: Service Date/Time: Tuesday, August 08, 2017 20:14 - CONCLUSION: 1. No acute findings. No adenopathy or effusion. Wesly Chapin MD Abdomen/Pelvis CT 08/08/17 0000 Signed Impressions: Service Date/Time: Tuesday, August 08, 2017 20:14 - CONCLUSION: 1. No acute findings. No adenopathy. Mild constipation. Wesly Chapin MD Liver Ultrasound 07/26/17 0000 Signed Impressions: Service Date/Time: July 16:09 - CONCLUSION: 1. Unremarkable abdominal ultrasound examination. Randall Patten MD Chest X-Ray 07/23/17 1850 Signed Impressions: Service Date/Time: Sunday, July 23, 2017 19:34 - CONCLUSION: Normal examination. Sherif Steel MD Head CT 06/20/17 0000 Signed Impressions: Service Date/Time: June 03:11 - CONCLUSION: 1. No acute hemorrhage or mass effect. 2. Areas of encephalomalacia in the left temporal and parietal lobes. 3. Mild to moderate atrophic change. Simone Wolf MD Renal Ultrasound 06/19/17 0000 Signed Impressions: Service Date/Time: Monday, June 19, 2017 16:47 - CONCLUSION: 1. Elevated velocities in the proximal and mid right renal artery. 2. Nonvisualization of the left mid renal artery with elevated velocity in the distal portion of the renal artery. 3. Echogenic kidneys characteristic of medical renal disease. There is no hydronephrosis. Simone Wolf MD Objective Remarks GENERAL: Well developed male. No acute distress. SKIN: diffused erythematous rash involving bilateral legs, patient somewhat reluctant to show me. Bilateral hand and wrist rash also noted, no pustules or open skin, no complaints of itching. HEAD: Normocephalic EYES: PERRLA CARDIOVASCULAR: Regular rate and rhythm. RESPIRATORY: No accessory muscle use. Clear to auscultation. Breath sounds equal bilaterally. GASTROINTESTINAL: Abdomen soft, non-tender, nondistended. Normoactive bowel sounds. MUSCULOSKELETAL: Extremities without clubbing, cyanosis, or edema. No obvious deformities. Moves all extremities. NEUROLOGICAL: Awake and alert. Normal speech. Procedures NONE A/P Problem List: (1) Hypertension ICD Code: I10 - Essential (primary) hypertension Status: Chronic (2) HIV (human immunodeficiency virus infection) ICD Code: Z21 - Asymptomatic human immunodeficiency virus [HIV] infection status Status: Chronic (3) Viral rash ICD Code: B09 - Unspecified viral infection characterized by skin and mucous membrane lesions Status: Resolved Assessment and Plan 61-year-old male with primary medical history of HTN, HIV, bipolar, schizoaffective disorder who came into the hospital under [place] act for psychiatric evaluation. Per review of records [place] act report patient has absent temporal lobe syndrome, bipolar disorder, schizophrenia who has been having weight loss and poor hygiene sleeping in the park and restrooms. Patient has been combative to his caregiver. He is now admitted to inpatient psychiatry unit for further evaluation. Hospitalist following for medical management. BiPolar disorder, schizophrenia - Managed by psychiatry team HTN, controlled - Noncompliance behavior. Has been refusing BP meds now agreeable to meds. - Restarted on Hydralazine 25mg Q8hr, Lisinopril 5mg daily, and Procardia 90mg daily - BP this AM 90/58, later today 106/72 - Will hold Lisinopril and continue monitoring BP, continue adjusting medications as needed. Noncompliance, HIV Hep C, history - ID consulted and HAART started once again, adverse reaction to Odefsey, stopped and Benadryl administered. - Odefsey components added to allergy list, genotype ordered by ID prior to restarting HAART. - Monitor rash, VSS with exception of BP on low side, no respiratory complaints. - Hep C, will need to follow up with GI for treatment. Lymphocytosis - Likely due to HIV and Hep C. DVT prop ambulatory Discussed with nurse. Problem Qualifiers (1) Hypertension: Qualified Codes: I10 - Essential (primary) hypertension Christal Boyd Sep 07, 2017 14:01
--- NOTE | 2017-09-07 19:20 | HHI.PYPN ---
Subjective Remarks Patient seen for follow-up, chart reviewed. Discussion nursing staff reported the patient was upset about his reaction to the HAART medications yesterday but has been compliant with the rest of medications. Patient was found sitting hospital channels B, cooperative. Patient noted to be upset about having had a reaction to the medication stating that he did not receive the same HIV medication he took prior to his admission and despite reiterating the patient had gotten similar components which made up that medication patient continued to refuse. Patient continues with hoahaoism preoccupations and delusions. Patient denies any physical symptoms at this time. Review of Systems Except as stated in HPI: all other systems reviewed are Neg Mental Status Examination Appearance: Appropriate Consciousness: Alert Orientation: Person, Place (at least) Motor Activity: Other (continues to display a resting tremor. No other motoric abnormalities noted.) Speech: Unremarkable Language: Adequate Fund of Knowledge: Adequate Attention and Concentration: Inadequate Memory: Unremarkable Mood: Appropriate, Other ("excellent") Affect: Appropriate Thought Process & Associations: Circumstantial Thought Content: Bizarre thinking, Hallucinations, Delusional Hallucination Type: Auditory Delusion Type: Bizarre, Paranoid, Other (hoahaoism) Suicidal Ideation: No Suicidal Plan: No Suicidal Intention: No Homicidal Ideation: No Homicidal Plan: No Homicidal Intention: No Insight: Poor Judgment: Poor Results Labs Date/Time Source Procedure Growth Status 07/23/17 20:14 Blood Peripheral Aerobic Blood Culture - Final NO GROWTH IN 5 DAYS Complete 07/23/17 20:14 Anaerobic Blood Culture - Final Staphylococcus Epidermidis Complete Vitals/IOs Vital Signs Date Time Temp Pulse Resp B/P (MAP) Pulse Ox O2 Delivery O2 Flow Rate FiO2 09/07/17 13:10 96 106/72 (83) 09/07/17 05:33 98.1 18 98 Assessment & Plan Problem List: (1) Psychotic disorder ICD Codes: F29 - Unspecified psychosis not due to a substance or known physiological condition Status: Acute Assessment & Plan Patient noted with paranoid ideation that he was "poison" by having a reaction to the HIV medication is to continue hoahaoism preoccupation and delusions. We will continue rest of medications. Discussion with ID creative consultant with plan for further testing for now, input appreciated. Continue to monitor mood and behavior. Discharge planning in progress. Justification for Cont. Inpt. At risk for further decompensation if at lower level of care. Discharge Planning State referral Problem Qualifiers (1) Psychotic disorder: Qualified Codes: F28 - Other psychotic disorder not due to a substance or known physiological condition Jhoan Tabares MD Sep 07, 2017 19:20
[2017-09-08 05:35] VITALS: BP 122/79; PULSE 108; RESP 16; TEMP 98; O2SAT 98
[2017-09-08] MEDS: hydrALAZINE HCL 25 MG TAB PO SCH ×3 (06:00→20:49)
[2017-09-08] MEDS: BENZTROPINE MESYLATE 1 MG TAB PO SCH ×2 (08:17→20:49)
[2017-09-08] MEDS: NIFEdipine 90 MG SUSTAINED RELEASE TAB PO SCH (08:17)
[2017-09-08] MEDS: HALOPERIDOL LACTATE 5 MG/ML AMP IM SCH ×2 (08:17→20:59)
[2017-09-08] MEDS: NYSTATIN SUSP 500,000 U/5 ML CUP SWISH-SWAL SCH ×4 (08:17→20:49)
[2017-09-08] MEDS: HALOPERIDOL 10 MG TAB PO SCH ×2 (08:17→20:49)
[2017-09-08 12:33] VITALS: BP 121/82; PULSE 113
[2017-09-08] MEDS: CALCIUM/VITAMIN D 250 MG/125 U TAB PO SCH ×2 (13:00→21:01)
--- NOTE | 2017-09-08 13:20 | HHI.PYPN ---
Subjective Remarks Pt seen and discussed with staff. He remains delusional and pleasantly psychotic. He stays in room mostly and does not attend therapeutic groups. No SI /HI Mental Status Examination Appearance: Appropriate Consciousness: Alert Orientation: Person, Place (at least) Motor Activity: Other (continues to display a resting tremor. No other motoric abnormalities noted.) Speech: Unremarkable Language: Adequate Fund of Knowledge: Adequate Attention and Concentration: Inadequate Memory: Unremarkable Mood: Appropriate, Other ("excellent") Affect: Appropriate Thought Process & Associations: Circumstantial Thought Content: Bizarre thinking, Hallucinations, Delusional Hallucination Type: Auditory Delusion Type: Bizarre, Paranoid, Other (mandaeism) Suicidal Ideation: No Suicidal Plan: No Suicidal Intention: No Homicidal Ideation: No Homicidal Plan: No Homicidal Intention: No Insight: Poor Judgment: Poor Results Labs Test 09/08/17 11:25 Date/Time Source Procedure Growth Status 07/23/17 20:14 Blood Peripheral Aerobic Blood Culture - Final NO GROWTH IN 5 DAYS Complete 07/23/17 20:14 Anaerobic Blood Culture - Final Staphylococcus Epidermidis Complete Vitals/IOs Vital Signs Date Time Temp Pulse Resp B/P (MAP) Pulse Ox O2 Delivery O2 Flow Rate FiO2 09/08/17 12:33 113 121/82 (95) 09/08/17 05:35 98.0 16 98 Assessment & Plan Problem List: (1) Psychotic disorder ICD Codes: F29 - Unspecified psychosis not due to a substance or known physiological condition Status: Acute Assessment & Plan Continue current tx plan. Estimated LOS: days Justification for Cont. Inpt. impairments in reality testing Problem Qualifiers (1) Psychotic disorder: Qualified Codes: F28 - Other psychotic disorder not due to a substance or known physiological condition Radha Meyers MD Sep 08, 2017 13:20
--- NOTE | 2017-09-08 14:06 | HHI.PR ---
Subjective Remarks Follow-up for hypertension and drug reaction. Patient seen and examined in his room. He denies any headache, dizziness, lightheadedness, chest pains, shortness of breath or cough. He denies any itchiness or skin irritation. Reports that he had a medication that made him have a bad reaction. He goes on to talk about the fact that the hospital does not carry a certain medication in the medications are given to him for someone to make money off of. Objective Vitals Vital Signs Date Time Temp Pulse Resp B/P (MAP) Pulse Ox O2 Delivery O2 Flow Rate FiO2 09/08/17 12:33 113 121/82 (95) 09/08/17 05:35 98.0 108 16 122/79 (93) 98 Imaging Last Impressions Brain MRI 08/23/17 0000 Signed Impressions: Service Date/Time: August 15:16 - CONCLUSION: 1. 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 2. No findings to indicate acute cortical infarction are seen. 3. Scattered areas of increased T2 signal in the white matter most consistent with microvascular ischemic demyelinative change. 4. No abnormal enhancement identified within the brain parenchyma. Figueroa Nina MD Chest CT 08/08/17 0000 Signed Impressions: Service Date/Time: Tuesday, August 08, 2017 20:14 - CONCLUSION: 1. No acute findings. No adenopathy or effusion. Wesly Chapin MD Abdomen/Pelvis CT 08/08/17 0000 Signed Impressions: Service Date/Time: Tuesday, August 08, 2017 20:14 - CONCLUSION: 1. No acute findings. No adenopathy. Mild constipation. Wesly Chapin MD Liver Ultrasound 07/26/17 0000 Signed Impressions: Service Date/Time: July 16:09 - CONCLUSION: 1. Unremarkable abdominal ultrasound examination. Randall Patten MD Chest X-Ray 07/23/170 Signed Impressions: Service Date/Time: Sunday, July 23, 2017 19:34 - CONCLUSION: Normal examination. Sherif Steel MD Head CT 06/20/17 0000 Signed Impressions: Service Date/Time: June 03:11 - CONCLUSION: 1. No acute hemorrhage or mass effect. 2. Areas of encephalomalacia in the left temporal and parietal lobes. 3. Mild to moderate atrophic change. Simone Wolf MD Renal Ultrasound 06/19/17 0000 Signed Impressions: Service Date/Time: Monday, June 19, 2017 16:47 - CONCLUSION: 1. Elevated velocities in the proximal and mid right renal artery. 2. Nonvisualization of the left mid renal artery with elevated velocity in the distal portion of the renal artery. 3. Echogenic kidneys characteristic of medical renal disease. There is no hydronephrosis. Simone Wolf MD Objective Remarks GENERAL: Well developed male. No acute distress. SKIN: diffused fine erythematous rash involving bilateral legs, trunk of body and bilateral lower legs. No pustules or open skin, no complaints of itching. HEAD: Normocephalic EYES: PERRLA CARDIOVASCULAR: Regular rate and rhythm. RESPIRATORY: No accessory muscle use. Clear to auscultation. Breath sounds equal bilaterally. GASTROINTESTINAL: Abdomen soft, non-tender, nondistended. Normoactive bowel sounds. MUSCULOSKELETAL: Extremities without clubbing, cyanosis, or edema. No obvious deformities. Moves all extremities. NEUROLOGICAL: Awake and alert. Normal speech. Procedures NONE A/P Problem List: (1) Hypertension ICD Code: I10 - Essential (primary) hypertension Status: Chronic (2) HIV (human immunodeficiency virus infection) ICD Code: Z21 - Asymptomatic human immunodeficiency virus [HIV] infection status Status: Chronic (3) Viral rash ICD Code: B09 - Unspecified viral infection characterized by skin and mucous membrane lesions Status: Resolved Assessment and Plan 61-year-old male with primary medical history of HTN, HIV, bipolar, schizoaffective disorder who came into the hospital under [place] act for psychiatric evaluation. Per review of records [place] report patient has absent temporal lobe syndrome, bipolar disorder, schizophrenia who has been having weight loss and poor hygiene sleeping in the park and restrooms. Patient has been combative to his caregiver. He is now admitted to inpatient psychiatry unit for further evaluation. Hospitalist following for medical management. BiPolar disorder, schizophrenia - Managed by psychiatry team HTN, controlled - Noncompliance behavior. Has been refusing BP meds now agreeable to meds. -Continue hydralazine 25mg Q8hr and Procardia 90mg daily - BP this AM 121/82 -Continue monitoring blood pressures and adjusting medications. Noncompliance, HIV Hep C, history - ID consulted and HAART started once again, adverse reaction to Odefsey, stopped and Benadryl administered. - Odefsey components added to allergy list, genotype ordered by ID prior to restarting HAART. - Monitor rash, VSS, no respiratory complaints. - Hep C, will need to follow up with GI for treatment. Lymphocytosis - Likely due to HIV and Hep C. DVT prop ambulatory Discussed with nurse. Problem Qualifiers (1) Hypertension: Qualified Codes: I10 - Essential (primary) hypertension Christal Boyd Sep 08, 2017 14:06
[2017-09-08 18:19] VITALS: BP 124/74; PULSE 113; RESP 14; TEMP 97.8; O2SAT 99
[2017-09-09 05:33] VITALS: BP 121/65; PULSE 97; RESP 18; TEMP 98.4; O2SAT 97
[2017-09-09] MEDS: hydrALAZINE HCL 25 MG TAB PO SCH ×3 (06:13→21:28)
[2017-09-09] MEDS: NYSTATIN SUSP 500,000 U/5 ML CUP SWISH-SWAL SCH ×4 (08:26→21:00)
[2017-09-09] MEDS: BENZTROPINE MESYLATE 1 MG TAB PO SCH ×2 (08:26→21:00)
[2017-09-09] MEDS: NIFEdipine 90 MG SUSTAINED RELEASE TAB PO SCH (08:26)
[2017-09-09] MEDS: HALOPERIDOL 10 MG TAB PO SCH ×2 (08:26→21:00)
[2017-09-09] MEDS: HALOPERIDOL LACTATE 5 MG/ML AMP IM SCH ×2 (08:30→21:00)
--- NOTE | 2017-09-09 12:16 | HHI.PR ---
Subjective Remarks Follow-up for hypertension and drug reaction. Seen and examined in the [facility], he repots he is doing well. Denies any fevers, chills, nausea, vomiting, diarrhea, itching or trouble breathing. He tells me that he took an HIV mediation that made him turn blue and that he does not plan in taking it anymore as this is the way the company is making money off of the medications. Objective Vitals Vital Signs Date Time Temp Pulse Resp B/P (MAP) Pulse Ox O2 Delivery O2 Flow Rate FiO2 09/09/17 05:33 98.4 97 18 121/65 (83) 97 09/08/17 18:19 97.8 113 14 124/74 (91) 99 09/08/17 12:33 113 121/82 (95) Imaging Last Impressions Brain MRI 08/23/17 0000 Signed Impressions: Service Date/Time: August 15:16 - CONCLUSION: 1. 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 2. No findings to indicate acute cortical infarction are seen. 3. Scattered areas of increased T2 signal in the white matter most consistent with microvascular ischemic demyelinative change. 4. No abnormal enhancement identified within the brain parenchyma. Figueroa Nina MD Chest CT 08/08/17 0000 Signed Impressions: Service Date/Time: Tuesday, August 08, 2017 20:14 - CONCLUSION: 1. No acute findings. No adenopathy or effusion. Wesly Chapin MD Abdomen/Pelvis CT 08/08/17 0000 Signed Impressions: Service Date/Time: Tuesday, August 08, 2017 20:14 - CONCLUSION: 1. No acute findings. No adenopathy. Mild constipation. Wesly Chapin MD Liver Ultrasound 07/26/17 0000 Signed Impressions: Service Date/Time: July 16:09 - CONCLUSION: 1. Unremarkable abdominal ultrasound examination. Randall Patten MD Chest X-Ray 07/23/17 1850 Signed Impressions: Service Date/Time: Sunday, July 23, 2017 19:34 - CONCLUSION: Normal examination. Sherif Steel MD Head CT 06/20/17 0000 Signed Impressions: Service Date/Time: June 03:11 - CONCLUSION: 1. No acute hemorrhage or mass effect. 2. Areas of encephalomalacia in the left temporal and parietal lobes. 3. Mild to moderate atrophic change. Simone Wolf MD Renal Ultrasound 06/19/17 0000 Signed Impressions: Service Date/Time: Monday, June 19, 2017 16:47 - CONCLUSION: 1. Elevated velocities in the proximal and mid right renal artery. 2. Nonvisualization of the left mid renal artery with elevated velocity in the distal portion of the renal artery. 3. Echogenic kidneys characteristic of medical renal disease. There is no hydronephrosis. Simone Wolf MD Objective Remarks GENERAL: Well developed male. No acute distress. SKIN: diffused fine erythematous rash involving bilateral legs, trunk of body and bilateral lower legs. No pustules or open skin, no complaints of itching. HEAD: Normocephalic EYES: PERRLA CARDIOVASCULAR: Regular rate and rhythm. RESPIRATORY: No accessory muscle use. Clear to auscultation. Breath sounds equal bilaterally. GASTROINTESTINAL: Abdomen soft, non-tender, nondistended. Normoactive bowel sounds. MUSCULOSKELETAL: Extremities without clubbing, cyanosis, or edema. No obvious deformities. Moves all extremities. NEUROLOGICAL: Awake and alert. Normal speech. Procedures NONE A/P Problem List: (1) Hypertension ICD Code: I10 - Essential (primary) hypertension Status: Chronic (2) HIV (human immunodeficiency virus infection) ICD Code: Z21 - Asymptomatic human immunodeficiency virus [HIV] infection status Status: Chronic (3) Viral rash ICD Code: B09 - Unspecified viral infection characterized by skin and mucous membrane lesions Status: Resolved Assessment and Plan 61-year-old male with primary medical history of HTN, HIV, bipolar, schizoaffective disorder who came into the hospital under [place] for psychiatric evaluation. Per review of records [place] report patient has absent temporal lobe syndrome, bipolar disorder, schizophrenia who has been having weight loss and poor hygiene sleeping in the park and restrooms. Patient has been combative to his caregiver. He is now admitted to inpatient psychiatry unit for further evaluation. Hospitalist following for medical management. BiPolar disorder, schizophrenia - Managed by psychiatry team HTN, controlled - Noncompliance behavior. Has been refusing BP meds in past now agreeable to meds. -Continue hydralazine 25mg Q8hr and Procardia 90mg daily - BP this AM 121/65, stable Noncompliance, HIV Hep C, history - ID consulted and HAART started once again, adverse reaction to Odefsey, stopped and Benadryl administered. - Odefsey components added to allergy list, genotype ordered by ID prior to restarting HAART. - Monitor rash, VSS, no respiratory complaints. - Hep C, will need to follow up with GI for treatment. Lymphocytosis - Likely due to HIV and Hep C. DVT prop ambulatory Discussed with nurse. [facility] will sign off, BP stable, HIV medication choice will be determined by ID. Please reconsult if needed, thank you. Problem Qualifiers (1) Hypertension: Qualified Codes: I10 - Essential (primary) hypertension Christal Boyd Sep 09, 2017 12:16
[2017-09-09] MEDS: CALCIUM/VITAMIN D 250 MG/125 U TAB PO SCH ×2 (13:00→21:00)
--- NOTE | 2017-09-09 17:11 | HHI.PYPN ---
Subjective Remarks Pt seen and discussed with staff. He continues to experience AH (Logan) and delusions. He comes out for meals but mostly isolates to his room. No SI/HI. Mental Status Examination Appearance: Appropriate Consciousness: Alert Orientation: Person, Place (at least) Motor Activity: Other (continues to display a resting tremor. No other motoric abnormalities noted.) Speech: Unremarkable Language: Adequate Fund of Knowledge: Adequate Attention and Concentration: Inadequate Memory: Unremarkable Mood: Appropriate, Other ("excellent") Affect: Appropriate Thought Process & Associations: Circumstantial Thought Content: Bizarre thinking, Hallucinations, Delusional Hallucination Type: Auditory Delusion Type: Bizarre, Paranoid, Other (zoroastrianism) Suicidal Ideation: No Suicidal Plan: No Suicidal Intention: No Homicidal Ideation: No Homicidal Plan: No Homicidal Intention: No Insight: Poor Judgment: Poor Results Labs Date/Time Source Procedure Growth Status 07/23/17 20:14 Blood Peripheral Aerobic Blood Culture - Final NO GROWTH IN 5 DAYS Complete 07/23/17 20:14 Anaerobic Blood Culture - Final Staphylococcus Epidermidis Complete Vitals/IOs Vital Signs Date Time Temp Pulse Resp B/P (MAP) Pulse Ox O2 Delivery O2 Flow Rate FiO2 09/09/17 05:33 98.4 97 18 121/65 (83) 97 Assessment & Plan Problem List: (1) Psychotic disorder ICD Codes: F29 - Unspecified psychosis not due to a substance or known physiological condition Status: Acute Assessment & Plan Continue current tx plan. Estimated LOS: days Justification for Cont. Inpt. impairments in self care and reality testing Problem Qualifiers (1) Psychotic disorder: Qualified Codes: F28 - Other psychotic disorder not due to a substance or known physiological condition Radha Meyers MD Sep 09, 2017 17:11
[2017-09-09 17:13] VITALS: BP 137/77; PULSE 100; RESP 18; TEMP 97.7; O2SAT 99
[2017-09-10 05:59] VITALS: BP 123/77; PULSE 90; RESP 18; TEMP 98.2; O2SAT 98
[2017-09-10] MEDS: hydrALAZINE HCL 25 MG TAB PO SCH ×3 (06:00→20:53)
[2017-09-10 06:02] VITALS: BP 123/77; PULSE 90; RESP 18; TEMP 98.2
[2017-09-10] MEDS: NIFEdipine 90 MG SUSTAINED RELEASE TAB PO SCH (08:06)
[2017-09-10] MEDS: HALOPERIDOL 10 MG TAB PO SCH ×2 (08:06→20:52)
[2017-09-10] MEDS: BENZTROPINE MESYLATE 1 MG TAB PO SCH ×2 (08:06→20:52)
[2017-09-10] MEDS: HALOPERIDOL LACTATE 5 MG/ML AMP IM SCH ×2 (08:06→20:53)
[2017-09-10] MEDS: NYSTATIN SUSP 500,000 U/5 ML CUP SWISH-SWAL SCH ×4 (08:06→20:52)
[2017-09-10] MEDS: CALCIUM/VITAMIN D 250 MG/125 U TAB PO SCH ×2 (13:00→20:52)
[2017-09-10 13:08] VITALS: BP 132/80; PULSE 107
--- NOTE | 2017-09-10 15:12 | HHI.PYPN ---
Subjective Remarks Patient seen for follow-up, chart reviewed. Mental Status Examination Appearance: Appropriate Consciousness: Alert Orientation: Person, Place (at least) Motor Activity: Other (continues to display a resting tremor. No other motoric abnormalities noted.) Speech: Unremarkable Language: Adequate Fund of Knowledge: Adequate Attention and Concentration: Inadequate Memory: Unremarkable Mood: Appropriate, Other ("excellent") Affect: Appropriate Thought Process & Associations: Circumstantial Thought Content: Bizarre thinking, Hallucinations, Delusional Hallucination Type: Auditory Delusion Type: Bizarre, Paranoid, Other (zoroastrian) Suicidal Ideation: No Suicidal Plan: No Suicidal Intention: No Homicidal Ideation: No Homicidal Plan: No Homicidal Intention: No Insight: Poor Judgment: Poor Results Labs Date/Time Source Procedure Growth Status 07/23/17 20:14 Blood Peripheral Aerobic Blood Culture - Final NO GROWTH IN 5 DAYS Complete 07/23/17 20:14 Anaerobic Blood Culture - Final Staphylococcus Epidermidis Complete Vitals/IOs Vital Signs Date Time Temp Pulse Resp B/P (MAP) Pulse Ox O2 Delivery O2 Flow Rate FiO2 09/10/17 13:08 107 132/80 (97) 09/10/17 06:02 98.2 18 09/10/17 05:59 98 Assessment & Plan Problem List: (1) Psychotic disorder ICD Codes: F29 - Unspecified psychosis not due to a substance or known physiological condition Status: Acute Assessment & Plan Estimated LOS: days Problem Qualifiers (1) Psychotic disorder: Qualified Codes: F28 - Other psychotic disorder not due to a substance or known physiological condition Jhoan Tabares MD Sep 10, 2017 15:11
--- NOTE | 2017-09-10 15:58 | HHI.IDPN ---
Subjective Subjective Remarks no new issues afebrile con to have residual rash Antibiotics none Allergies: Coded Allergies: Sulfa (Sulfonamide Antibiotics) (Unverified Allergy, Severe, Hives, ) emtricitabine (Verified Allergy, Severe, Skin Discoloration, 09/06/17) severe skin redness rilpivirine (Verified Allergy, Severe, Skin Discoloration, 09/06/17) severe skin redness tenofovir (Verified Allergy, Severe, Skin Discoloration, 09/06/17) severe skin redness Objective . Vital Signs Date Time Temp Pulse Resp B/P (MAP) Pulse Ox O2 Delivery O2 Flow Rate FiO2 09/10/17 13:08 107 132/80 (97) 09/10/17 06:02 98.2 90 18 123/77 (92) 09/10/17 05:59 98.2 90 18 123/77 (92) 98 09/09/17 17:13 97.7 100 18 137/77 (97) 99 Imaging Last Impressions Brain MRI 08/23/17 0000 Signed Impressions: Service Date/Time: August 15:16 - CONCLUSION: 1. 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 2. No findings to indicate acute cortical infarction are seen. 3. Scattered areas of increased T2 signal in the white matter most consistent with microvascular ischemic demyelinative change. 4. No abnormal enhancement identified within the brain parenchyma. Figueroa Nina MD Chest CT 08/08/17 0000 Signed Impressions: Service Date/Time: Tuesday, August 08, 2017 20:14 - CONCLUSION: 1. No acute findings. No adenopathy or effusion. Wesly Chapin MD Abdomen/Pelvis CT 08/08/17 0000 Signed Impressions: Service Date/Time: Tuesday, August 08, 2017 20:14 - CONCLUSION: 1. No acute findings. No adenopathy. Mild constipation. Wesly Chapin MD Liver Ultrasound 07/26/17 0000 Signed Impressions: Service Date/Time: July 16:09 - CONCLUSION: 1. Unremarkable abdominal ultrasound examination. Randall Patten MD Chest X-Ray 07/23/17 1850 Signed Impressions: Service Date/Time: Sunday, July 23, 2017 19:34 - CONCLUSION: Normal examination. Sherif A. Sevigny, MD Head CT 06/20/17 0000 Signed Impressions: Service Date/Time: June 03:11 - CONCLUSION: 1. No acute hemorrhage or mass effect. 2. Areas of encephalomalacia in the left temporal and parietal lobes. 3. Mild to moderate atrophic change. Simone Wolf MD Renal Ultrasound 06/19/17 0000 Signed Impressions: Service Date/Time: Monday, June 19, 2017 16:47 - CONCLUSION: 1. Elevated velocities in the proximal and mid right renal artery. 2. Nonvisualization of the left mid renal artery with elevated velocity in the distal portion of the renal artery. 3. Echogenic kidneys characteristic of medical renal disease. There is no hydronephrosis. Simone Wolf MD Physical Exam CONSTITUTIONAL/GENERAL: This is an adequately nourished patient, in no apparent distress. Pt appears well SKIN: No jaundice, There is peristent milld diffuse erythema involving BLE and BUE and torso Not much on the face EYES: Pupils equal and round and reactive. Non icteric ENT: Hearing grossly normal. Nose without bleeding or purulent drainage. Throat without visible erythema, exudates, masses, or lesions. No enanthema noted RESPIRATORY/CHEST: , unlabored respirations. MUSCULOSKELETAL: Extremities without clubbing, cyanosis, or edema. NEUROLOGICAL: Awake and alert. Motor and sensory grossly within normal limits. Follows commands. Clear speech . Moves all extremities. PSYCHIATRIC: No obvious anxiety/depression. no apparent hallucinations Assessment & Plan Remarks HIV disease with CD4 > 400, off HAART - pt is now agreable to restart HAART VL 7 logs Racsh o/w Odefsey ; severe reaction - slowly resolving rash Pt has no decision making capacity Add all Odefsey components to allergy list (done) monitor smx Monitor LFTs will rechk labs MOnitor skin rash awaiting Genotype dw Jammie Delgadillo MD Sep 10, 2017 15:58
[2017-09-10] MEDS: ACETAMINOPHEN 325 MG TAB PO PRN (17:39)
[2017-09-10 18:29] VITALS: BP 122/70; PULSE 112; RESP 18; TEMP 97.3; O2SAT 98
[2017-09-11 05:14] VITALS: BP 134/83; PULSE 95; RESP 16; TEMP 98.7; O2SAT 98
[2017-09-11] MEDS: hydrALAZINE HCL 25 MG TAB PO SCH ×3 (06:06→21:27)
[2017-09-11 06:49] LABS: AUTOMATED NEUTROPHIL # 2.9 TH/MM3 (1.8-7.7); BASOPHIL # 0.1 TH/MM3 (0-0.2); BASOPHIL % 0.5 % (0.0-2.0); EOSINOPHIL # 0.6 TH/MM3 (0-0.4); EOSINOPHIL % 6.5 % (0.0-4.0); HEMATOCRIT 35.4 % (39.0-51.0); HEMOGLOBIN 12.3 GM/DL (13.0-17.0); LYMPH % 55.6 % (9.0-44.0); LYMPHOCYTE # 5.5 TH/MM3 (1.0-4.8); MEAN CELL VOLUME 85.4 FL (80.0-100.0); MEAN CORPUSCULAR HEMOGLOBIN 29.7 PG (27.0-34.0); MEAN CORPUSCULAR HGB CONC 34.7 % (32.0-36.0); MEAN PLATELET VOLUME 8.1 FL (7.0-11.0); MONO % 7.4 % (0.0-8.0); MONOCYTE # 0.7 TH/MM3 (0-0.9); PLATELET COUNT 232 TH/MM3 (150-450); RED BLOOD COUNT 4.14 MIL/MM3 (4.50-5.90); RED CELL DISTRIBUTION WIDTH 17.5 % (11.6-17.2); WHITE BLOOD COUNT 9.8 TH/MM3 (4.0-11.0)
[2017-09-11 07:04] LABS: ALBUMIN 2.9 GM/DL (3.4-5.0); AST (GOT) 63 U/L (15-37); BICARBONATE 29.4 MEQ/L (21.0-32.0); BLOOD UREA NITROGEN 16 MG/DL (7-18); CALCIUM 9.1 MG/DL (8.5-10.1); CHLORIDE 102 MEQ/L (98-107); CREATININE 0.91 MG/DL (0.60-1.30); GLOMERULAR FILTRATION RATE 85 ML/MIN (>89); GLUCOSE,RANDOM 91 MG/DL (74-106); SODIUM (NA) 136 MEQ/L (136-145)
[2017-09-11 07:06] LABS: ALT (GPT) 60 U/L (12-78)
[2017-09-11 07:07] LABS: ALKALINE PHOSPHATASE 289 U/L (45-117); TOTAL BILIRUBIN ADULT 0.5 MG/DL (0.2-1.0); TOTAL PROTEIN 6.9 GM/DL (6.4-8.2)
--- NOTE | 2017-09-11 07:37 | HHI.PYPN ---
Subjective Remarks Patient seen for follow-up, chart reviewed. Discussion with nursing staff reported that the patient has been, cooperative attending some groups. Patient was found sitting in hospital chair, cooperative. Patient noted with some paranoid ideation stating of the doctor's are trying to "poison him" with the HIV medications as patient had flushing rash secondary to side effects from recent restart of HAART medications. Patient also continue gnosticism preoccupation and delusions. Patient denies any physical complaints. Patient continues to be adherent to medications. Review of Systems Except as stated in HPI: all other systems reviewed are Neg Mental Status Examination Appearance: Appropriate Consciousness: Alert Orientation: Person, Place (at least) Motor Activity: Other (continues to display a resting tremor. No other motoric abnormalities noted.) Speech: Unremarkable Language: Adequate Fund of Knowledge: Adequate Attention and Concentration: Inadequate Memory: Unremarkable Mood: Appropriate, Other ("excellent") Affect: Appropriate Thought Process & Associations: Circumstantial Thought Content: Bizarre thinking, Hallucinations, Delusional Hallucination Type: Auditory Delusion Type: Bizarre, Paranoid, Other (gnosticism) Suicidal Ideation: No Suicidal Plan: No Suicidal Intention: No Homicidal Ideation: No Homicidal Plan: No Homicidal Intention: No Insight: Poor Judgment: Poor Results Labs Labs reviewed Test 09/11/17 06:11 White Blood Count 9.8 TH/MM3 Red Blood Count 4.14 MIL/MM3 Hemoglobin 12.3 GM/DL Hematocrit 35.4 % Mean Corpuscular Volume 85.4 FL Mean Corpuscular Hemoglobin 29.7 PG Mean Corpuscular Hemoglobin Concent 34.7 % Red Cell Distribution Width 17.5 % Platelet Count 232 TH/MM3 Mean Platelet Volume 8.1 FL Neutrophils (%) (Auto) 30.0 % Lymphocytes (%) (Auto) 55.6 % Monocytes (%) (Auto) 7.4 % Eosinophils (%) (Auto) 6.5 % Basophils (%) (Auto) 0.5 % Neutrophils # (Auto) 2.9 TH/MM3 Lymphocytes # (Auto) 5.5 TH/MM3 Monocytes # (Auto) 0.7 TH/MM3 Eosinophils # (Auto) 0.6 TH/MM3 Basophils # (Auto) 0.1 TH/MM3 CBC Comment AUTO DIFF Blood Urea Nitrogen 16 MG/DL Creatinine 0.91 MG/DL Random Glucose 91 MG/DL Total Protein 6.9 GM/DL Albumin 2.9 GM/DL Calcium Level 9.1 MG/DL Alkaline Phosphatase 289 U/L Aspartate Amino Transf (AST/SGOT) 63 U/L Alanine Aminotransferase (ALT/SGPT) 60 U/L Total Bilirubin 0.5 MG/DL Sodium Level 136 MEQ/L Potassium Level 4.2 MEQ/L Chloride Level 102 MEQ/L Carbon Dioxide Level 29.4 MEQ/L Anion Gap 5 MEQ/L Estimat Glomerular Filtration Rate 85 ML/MIN Date/Time Source Procedure Growth Status 07/23/17 20:14 Blood Peripheral Aerobic Blood Culture - Final NO GROWTH IN 5 DAYS Complete 07/23/17 20:14 Anaerobic Blood Culture - Final Staphylococcus Epidermidis Complete Vitals/IOs Vital Signs Date Time Temp Pulse Resp B/P (MAP) Pulse Ox O2 Delivery O2 Flow Rate FiO2 09/11/17 05:14 98.7 95 16 134/83 (100) 98 Assessment & Plan Problem List: (1) Psychotic disorder ICD Codes: F29 - Unspecified psychosis not due to a substance or known physiological condition Status: Acute Assessment & Plan Patient this time continues to have gnosticism preoccupation delusions, has some paranoid ideation secondary to allergic reaction he experienced from recent restart of HAART medications. Patient continues to have slight tremor bilaterally in hands. Continue current treatment. Continue to monitor mood and behavior. Discharge planning in progress. Justification for Cont. Inpt. At risk for further decompensation if at lower level of care Discharge Planning State hospital referral Problem Qualifiers (1) Psychotic disorder: Qualified Codes: F28 - Other psychotic disorder not due to a substance or known physiological condition Jhoan Tabares MD Sep 11, 2017 07:37
[2017-09-11 08:46] LABS: LYMPHOCYTES 52 % (9-44); MONOCYTES 10 % (0-8); NEUTROPHIL # MANUAL DIFF 3.4 TH/MM3 (1.8-7.7); POLYS (SEG NEUTROPHILS) 35 % (16-70)
[2017-09-11] MEDS: HALOPERIDOL 10 MG TAB PO SCH ×2 (08:46→20:26)
[2017-09-11] MEDS: NYSTATIN SUSP 500,000 U/5 ML CUP SWISH-SWAL SCH ×4 (08:47→20:26)
[2017-09-11] MEDS: NIFEdipine 90 MG SUSTAINED RELEASE TAB PO SCH (08:47)
[2017-09-11] MEDS: HALOPERIDOL LACTATE 5 MG/ML AMP IM SCH ×2 (08:47→21:00)
[2017-09-11] MEDS: BENZTROPINE MESYLATE 1 MG TAB PO SCH ×2 (08:47→20:26)
[2017-09-11] MEDS: CALCIUM/VITAMIN D 250 MG/125 U TAB PO SCH ×2 (13:54→21:26)
--- NOTE | 2017-09-11 15:27 | HHI.PYPN ---
Subjective Remarks Patient is here for follow-up, chart reviewed. Discussion nursing staff reported the patient has had no changes are compliant with treatment. Patient was found sitting in hospital bed, cooperative. Patient states that he has spoken to his brother over the weekend but did not mention anything about his request to return back there. Patient states that he would like to be able to leave the hospital soon. Patient denies any physical complaints at this time, continues with treatment compliance. Patient also continues was preservative voodoo delusions but denies any perceptual disturbances at this time. Review of Systems Except as stated in HPI: all other systems reviewed are Neg Mental Status Examination Appearance: Appropriate Consciousness: Alert Orientation: Person, Place (at least) Motor Activity: Other (continues to display a resting tremor. No other motoric abnormalities noted.) Speech: Unremarkable Language: Adequate Fund of Knowledge: Adequate Attention and Concentration: Inadequate Memory: Unremarkable Mood: Appropriate, Other ("excellent") Affect: Appropriate Thought Process & Associations: Circumstantial Thought Content: Bizarre thinking, Hallucinations, Delusional Hallucination Type: Auditory Delusion Type: Bizarre, Paranoid, Other (voodoo) Suicidal Ideation: No Suicidal Plan: No Suicidal Intention: No Homicidal Ideation: No Homicidal Plan: No Homicidal Intention: No Insight: Poor Judgment: Poor Results Labs Labs reviewed Test 09/11/17 06:11 White Blood Count 9.8 TH/MM3 Red Blood Count 4.14 MIL/MM3 Hemoglobin 12.3 GM/DL Hematocrit 35.4 % Mean Corpuscular Volume 85.4 FL Mean Corpuscular Hemoglobin 29.7 PG Mean Corpuscular Hemoglobin Concent 34.7 % Red Cell Distribution Width 17.5 % Platelet Count 232 TH/MM3 Mean Platelet Volume 8.1 FL Neutrophils (%) (Auto) 30.0 % Lymphocytes (%) (Auto) 55.6 % Monocytes (%) (Auto) 7.4 % Eosinophils (%) (Auto) 6.5 % Basophils (%) (Auto) 0.5 % Neutrophils # (Auto) 2.9 TH/MM3 Lymphocytes # (Auto) 5.5 TH/MM3 Monocytes # (Auto) 0.7 TH/MM3 Eosinophils # (Auto) 0.6 TH/MM3 Basophils # (Auto) 0.1 TH/MM3 CBC Comment AUTO DIFF Differential Total Cells Counted 100 Neutrophils % (Manual) 35 % Lymphocytes % 52 % Monocytes % 10 % Eosinophils % 3 % Neutrophils # (Manual) 3.4 TH/MM3 Differential Comment FINAL DIFF MANUAL Atypical Lymphocytes % Platelet Estimate NORMAL Platelet Morphology Comment NORMAL Red Cell Morphology Comment NORMAL Blood Urea Nitrogen 16 MG/DL Creatinine 0.91 MG/DL Random Glucose 91 MG/DL Total Protein 6.9 GM/DL Albumin 2.9 GM/DL Calcium Level 9.1 MG/DL Alkaline Phosphatase 289 U/L Aspartate Amino Transf (AST/SGOT) 63 U/L Alanine Aminotransferase (ALT/SGPT) 60 U/L Total Bilirubin 0.5 MG/DL Sodium Level 136 MEQ/L Potassium Level 4.2 MEQ/L Chloride Level 102 MEQ/L Carbon Dioxide Level 29.4 MEQ/L Anion Gap 5 MEQ/L Estimat Glomerular Filtration Rate 85 ML/MIN Date/Time Source Procedure Growth Status 07/23/17 20:14 Blood Peripheral Aerobic Blood Culture - Final NO GROWTH IN 5 DAYS Complete 07/23/17 20:14 Anaerobic Blood Culture - Final Staphylococcus Epidermidis Complete Vitals/IOs Vital Signs Date Time Temp Pulse Resp B/P (MAP) Pulse Ox O2 Delivery O2 Flow Rate FiO2 09/11/17 05:14 98.7 95 16 134/83 (100) 98 Assessment & Plan Problem List: (1) Psychotic disorder ICD Codes: F29 - Unspecified psychosis not due to a substance or known physiological condition Status: Acute Assessment & Plan Patient this time continue with persistent voodoo delusions, denying any suicidal or homicidal ideations. Patient to continue current treatment. Continue to monitor with behavior. Discharge planning in progress. Justification for Cont. Inpt. At risk for further decompensation if at lower level of care Discharge Planning State hospital referral Problem Qualifiers (1) Psychotic disorder: Qualified Codes: F28 - Other psychotic disorder not due to a substance or known physiological condition Jhoan Tabares MD Sep 11, 2017 15:27
[2017-09-11 18:23] VITALS: BP 140/82; PULSE 94; RESP 16; TEMP 98.6; O2SAT 97
[2017-09-12 06:38] VITALS: BP 134/82; PULSE 98; RESP 18; TEMP 98.2; O2SAT 98
[2017-09-12] MEDS: hydrALAZINE HCL 25 MG TAB PO SCH ×3 (06:46→21:11)
[2017-09-12] MEDS: NIFEdipine 90 MG SUSTAINED RELEASE TAB PO SCH (08:13)
[2017-09-12] MEDS: NYSTATIN SUSP 500,000 U/5 ML CUP SWISH-SWAL SCH ×4 (08:13→21:11)
[2017-09-12] MEDS: BENZTROPINE MESYLATE 1 MG TAB PO SCH ×2 (08:13→21:11)
[2017-09-12] MEDS: HALOPERIDOL 10 MG TAB PO SCH ×2 (08:13→21:11)
[2017-09-12] MEDS: HALOPERIDOL LACTATE 5 MG/ML AMP IM SCH ×2 (09:00→21:00)
[2017-09-12] MEDS: CALCIUM/VITAMIN D 250 MG/125 U TAB PO SCH ×2 (13:00→21:00)
--- NOTE | 2017-09-12 17:01 | HHI.PYPN ---
Subjective Remarks Patient seen for follow-up, chart reviewed. Discussion with nursing staff reported that the patient with no change, cooperative. Patient was found sitting on hospital bed, calm and cooperative. He states that everything is the same, "Logan, on my right ear, my wash and greaser on my left with Mr. Champion, satan on my right foot". He denies any physical complaints, attends some groups. Review of Systems Except as stated in HPI: all other systems reviewed are Neg Mental Status Examination Appearance: Appropriate Consciousness: Alert Orientation: Person, Place (at least) Motor Activity: Other (continues to display a resting tremor. No other motoric abnormalities noted.) Speech: Unremarkable Language: Adequate Fund of Knowledge: Adequate Attention and Concentration: Inadequate Memory: Unremarkable Mood: Appropriate, Other ("excellent") Affect: Appropriate Thought Process & Associations: Circumstantial Thought Content: Bizarre thinking, Hallucinations, Delusional Hallucination Type: Auditory Delusion Type: Bizarre, Paranoid, Other (jain) Suicidal Ideation: No Suicidal Plan: No Suicidal Intention: No Homicidal Ideation: No Homicidal Plan: No Homicidal Intention: No Insight: Poor Judgment: Poor Results Labs Date/Time Source Procedure Growth Status 07/23/17 20:14 Blood Peripheral Aerobic Blood Culture - Final NO GROWTH IN 5 DAYS Complete 07/23/17 20:14 Anaerobic Blood Culture - Final Staphylococcus Epidermidis Complete Vitals/IOs Vital Signs Date Time Temp Pulse Resp B/P (MAP) Pulse Ox O2 Delivery O2 Flow Rate FiO2 09/12/17 06:38 98.2 98 18 134/82 (99) 98 Intake and Output 09/12/17 09/12/17 09/13/17 08:00 16:00 00:00 Intake Total 480 ml Balance 480 ml Assessment & Plan Problem List: (1) Psychotic disorder ICD Codes: F29 - Unspecified psychosis not due to a substance or known physiological condition Status: Acute Assessment & Plan He continues with jain delusions and preoccupation. Tremor less intense. Continue current treatment. Continue recommendations as per ID consult and primary medical team. Discharge planning in progress. Justification for Cont. Inpt. At risk for further decompensation at lower level of care. Discharge Planning state hospital referral Problem Qualifiers (1) Psychotic disorder: Qualified Codes: F28 - Other psychotic disorder not due to a substance or known physiological condition Jhoan Tabares MD Sep 12, 2017 17:01
[2017-09-12 18:28] VITALS: BP 118/66; PULSE 98; RESP 18; TEMP 99.3; O2SAT 99
[2017-09-13] MEDS: hydrALAZINE HCL 25 MG TAB PO SCH ×3 (05:00→21:51)
[2017-09-13 05:46] VITALS: BP 130/77; PULSE 89; RESP 18; TEMP 98.5; O2SAT 98
[2017-09-13] MEDS: NYSTATIN SUSP 500,000 U/5 ML CUP SWISH-SWAL SCH ×4 (08:14→20:33)
[2017-09-13] MEDS: HALOPERIDOL 10 MG TAB PO SCH ×2 (08:14→20:33)
[2017-09-13] MEDS: BENZTROPINE MESYLATE 1 MG TAB PO SCH ×2 (08:14→20:33)
[2017-09-13] MEDS: HALOPERIDOL LACTATE 5 MG/ML AMP IM SCH ×2 (09:00→20:34)
[2017-09-13] MEDS: NIFEdipine 90 MG SUSTAINED RELEASE TAB PO SCH (10:04)
--- NOTE | 2017-09-13 12:35 | HHI.PYPN ---
Subjective Remarks Reviewed electronic medical record and discussed case with staff. Patient reports that he slept "all right" and is eating well. He denies suicidal or homicidal ideation. Continues to endorse that he hears the father, God, Logan and his ear, Satan on his hand and his box annealer Fireball on his foot. He states that their messages are encouraging. His mood is pleasant and his affect is euthymic. He reports no complaints at this time. Mental Status Examination Appearance: Appropriate Consciousness: Alert Orientation: Person, Place (at least) Motor Activity: Other (continues to display a resting tremor. No other motoric abnormalities noted.) Speech: Unremarkable Language: Adequate Fund of Knowledge: Adequate Attention and Concentration: Inadequate Memory: Unremarkable Mood: Appropriate, Other ("excellent") Affect: Appropriate, Euthymic Thought Process & Associations: Circumstantial Thought Content: Bizarre thinking, Hallucinations, Delusional Hallucination Type: Auditory Delusion Type: Bizarre, Paranoid, Other (islam) Suicidal Ideation: No Suicidal Plan: No Suicidal Intention: No Homicidal Ideation: No Homicidal Plan: No Homicidal Intention: No Insight: Poor Judgment: Poor Results Labs Date/Time Source Procedure Growth Status 07/23/17 20:14 Blood Peripheral Aerobic Blood Culture - Final NO GROWTH IN 5 DAYS Complete 07/23/17 20:14 Anaerobic Blood Culture - Final Staphylococcus Epidermidis Complete Vitals/IOs Vital Signs Date Time Temp Pulse Resp B/P (MAP) Pulse Ox O2 Delivery O2 Flow Rate FiO2 09/13/17 05:46 98.5 89 18 130/77 (94) 98 Assessment & Plan Problem List: (1) Psychotic disorder ICD Codes: F29 - Unspecified psychosis not due to a substance or known physiological condition Status: Acute Assessment & Plan Estimated LOS: [place] changes noted in patient's condition. We will continue with treatment plan. Justification for Cont. Inpt. Moving this patient to a lower level of care would likely cause decompensation. Problem Qualifiers (1) Psychotic disorder: Qualified Codes: F28 - Other psychotic disorder not due to a substance or known physiological condition Amanda Saunders Sep 13, 2017 12:35
[2017-09-13] MEDS: CALCIUM/VITAMIN D 250 MG/125 U TAB PO SCH ×2 (13:15→20:33)
[2017-09-13 16:13] LABS: ABACAVIR SUSC; ATAZANAVIR WITH RITONAVIR SUSC; DARUNAVIR WITH RITONAVIR SUSC; DIDANOSINE SUSC; EFAVIRENZ SUSC; ETRAVIRINE SUSC; FOSAMPRENAVIR WITH RITONAVIR SUSC; HIV-1 GENOTYPING INTERP; INDINAVIR WITH RITONAVIR SUSC; LOPINAVIR WITH RITONAVIR SUSC; NELFINAVIR SUSC; NEVIRAPINE SUSC; SAQUINAVIR WITH RITONAVIR SUSC; STAVUDINE SUSC; TENOFOVIR SUSC; TIPRANAVIR WITH RITONAVIR SUSC; ZIDOVUDINE SUSC
[2017-09-13] MEDS: ACETAMINOPHEN 325 MG TAB PO PRN (17:57)
[2017-09-14 05:29] VITALS: BP 125/73; PULSE 68; RESP 16; TEMP 98.4; O2SAT 97
[2017-09-14] MEDS: hydrALAZINE HCL 25 MG TAB PO SCH ×3 (05:34→21:12)
[2017-09-14] MEDS: NIFEdipine 90 MG SUSTAINED RELEASE TAB PO SCH (08:23)
[2017-09-14] MEDS: NYSTATIN SUSP 500,000 U/5 ML CUP SWISH-SWAL SCH ×4 (08:23→21:05)
[2017-09-14] MEDS: HALOPERIDOL 10 MG TAB PO SCH ×2 (08:23→21:05)
[2017-09-14] MEDS: BENZTROPINE MESYLATE 1 MG TAB PO SCH ×2 (08:23→21:00)
[2017-09-14] MEDS: HALOPERIDOL LACTATE 5 MG/ML AMP IM SCH ×2 (09:00→21:00)
--- NOTE | 2017-09-14 11:56 | HHI.PYPN ---
Subjective Remarks Patient seen for follow-up, chart reviewed. Discussion with nursing staff reported that patient continues to adhere with treatment. Patient found sitting on hospital bed, noted to be somewhat paranoid about the HAART medication which he had an rash from. He continues with church delusions, that "they talk to me all the time....saying keep going!". He denies any physical pain or other physical complaint at this time. Review of Systems Except as stated in HPI: all other systems reviewed are Neg Mental Status Examination Appearance: Appropriate Consciousness: Alert Orientation: Person, Place (at least) Motor Activity: Other (continues to display a resting tremor. No other motoric abnormalities noted.) Speech: Unremarkable Language: Adequate Fund of Knowledge: Adequate Attention and Concentration: Inadequate Memory: Unremarkable Mood: Appropriate, Other ("excellent") Affect: Appropriate, Euthymic Thought Process & Associations: Circumstantial Thought Content: Bizarre thinking, Hallucinations, Delusional Hallucination Type: Auditory Delusion Type: Bizarre, Paranoid, Other (church) Suicidal Ideation: No Suicidal Plan: No Suicidal Intention: No Homicidal Ideation: No Homicidal Plan: No Homicidal Intention: No Insight: Poor Judgment: Poor Results Labs Date/Time Source Procedure Growth Status 07/23/17 20:14 Blood Peripheral Aerobic Blood Culture - Final NO GROWTH IN 5 DAYS Complete 07/23/17 20:14 Anaerobic Blood Culture - Final Staphylococcus Epidermidis Complete Vitals/IOs Vital Signs Date Time Temp Pulse Resp B/P (MAP) Pulse Ox O2 Delivery O2 Flow Rate FiO2 09/14/17 05:29 98.4 68 16 125/73 (90) 97 Assessment & Plan Problem List: (1) Psychotic disorder ICD Codes: F29 - Unspecified psychosis not due to a substance or known physiological condition Status: Acute Assessment & Plan Continue current treatment, continue recommendations as per primary medical team. Monitor mood and behavior. Discharge planning in progress. Justification for Cont. Inpt. At risk for further decompensation at lower level of care. Discharge Planning State hospital referral Problem Qualifiers (1) Psychotic disorder: Qualified Codes: F28 - Other psychotic disorder not due to a substance or known physiological condition Jhoan Tabares MD Sep 14, 2017 11:56
[2017-09-14] MEDS: CALCIUM/VITAMIN D 250 MG/125 U TAB PO SCH ×2 (13:00→21:05)
[2017-09-14 17:44] VITALS: BP 117/65; PULSE 107; RESP 16; TEMP 98.6; O2SAT 97
[2017-09-14] MEDS: ACETAMINOPHEN 325 MG TAB PO PRN (19:23)
[2017-09-15 05:41] VITALS: BP 128/74; PULSE 92; RESP 16; TEMP 98.1; O2SAT 97
[2017-09-15] MEDS: NYSTATIN SUSP 500,000 U/5 ML CUP SWISH-SWAL SCH ×4 (08:53→20:57)
[2017-09-15] MEDS: BENZTROPINE MESYLATE 1 MG TAB PO SCH ×2 (08:53→20:57)
[2017-09-15] MEDS: NIFEdipine 90 MG SUSTAINED RELEASE TAB PO SCH (08:53)
[2017-09-15] MEDS: HALOPERIDOL 10 MG TAB PO SCH ×2 (08:54→20:58)
[2017-09-15] MEDS: HALOPERIDOL LACTATE 5 MG/ML AMP IM SCH ×2 (08:54→20:58)
[2017-09-15] MEDS: hydrALAZINE HCL 25 MG TAB PO SCH ×3 (14:00→20:58)
--- NOTE | 2017-09-15 14:13 | HHI.PYPN ---
Subjective Remarks Patient was seen and case discussed with nursing. Patient remains acutely psychotic with various bizarre taoism delusions. Compliant with medications and behaving well on the unit Mental Status Examination Appearance: Appropriate Consciousness: Alert Orientation: Person, Place (at least) Motor Activity: Other (continues to display a resting tremor. No other motoric abnormalities noted.) Speech: Unremarkable Language: Adequate Fund of Knowledge: Adequate Attention and Concentration: Inadequate Memory: Unremarkable Mood: Appropriate, Other ("excellent") Affect: Appropriate, Euthymic Thought Process & Associations: Circumstantial Thought Content: Bizarre thinking, Hallucinations, Delusional Hallucination Type: Auditory Delusion Type: Bizarre, Paranoid, Other (taoism) Suicidal Ideation: No Suicidal Plan: No Suicidal Intention: No Homicidal Ideation: No Homicidal Plan: No Homicidal Intention: No Insight: Poor Judgment: Poor Results Labs Date/Time Source Procedure Growth Status 07/23/17 20:14 Blood Peripheral Aerobic Blood Culture - Final NO GROWTH IN 5 DAYS Complete 07/23/17 20:14 Anaerobic Blood Culture - Final Staphylococcus Epidermidis Complete Vitals/IOs Vital Signs Date Time Temp Pulse Resp B/P (MAP) Pulse Ox O2 Delivery O2 Flow Rate FiO2 09/15/17 05:41 98.1 92 16 128/74 (92) 97 Assessment & Plan Problem List: (1) Psychotic disorder ICD Codes: F29 - Unspecified psychosis not due to a substance or known physiological condition Status: Acute Assessment & Plan Continue current treatment plan Justification for Cont. Inpt. Patient would decompensate in a less restrictive setting Problem Qualifiers (1) Psychotic disorder: Qualified Codes: F28 - Other psychotic disorder not due to a substance or known physiological condition Manny Camacho DO Sep 15, 2017 14:13
[2017-09-15] MEDS: CALCIUM/VITAMIN D 250 MG/125 U TAB PO SCH ×2 (14:17→20:58)
[2017-09-15 18:26] VITALS: BP 137/74; PULSE 94; RESP 18; TEMP 97.9; O2SAT 97
[2017-09-16 04:57] VITALS: BP 128/81; PULSE 84; RESP 16; TEMP 97.8; O2SAT 98
[2017-09-16] MEDS: hydrALAZINE HCL 25 MG TAB PO SCH ×3 (05:29→20:54)
[2017-09-16] MEDS: HALOPERIDOL LACTATE 5 MG/ML AMP IM SCH ×2 (09:00→20:54)
[2017-09-16] MEDS: BENZTROPINE MESYLATE 1 MG TAB PO SCH ×2 (09:00→20:54)
[2017-09-16] MEDS: NYSTATIN SUSP 500,000 U/5 ML CUP SWISH-SWAL SCH ×4 (09:06→20:54)
[2017-09-16] MEDS: NIFEdipine 90 MG SUSTAINED RELEASE TAB PO SCH (09:06)
[2017-09-16] MEDS: HALOPERIDOL 10 MG TAB PO SCH ×2 (09:06→20:54)
--- NOTE | 2017-09-16 10:44 | HHI.PYPN ---
Subjective Remarks Patient was seen and case discussed with nursing. Patient remains grossly psychotic with various bizarre delusions. Today she says that all religions are theatrical and talks about various movies. Behaving well on the unit and compliant with his medications Mental Status Examination Appearance: Appropriate Consciousness: Alert Orientation: Person, Place (at least) Motor Activity: Other (continues to display a resting tremor. No other motoric abnormalities noted.) Speech: Unremarkable Language: Adequate Fund of Knowledge: Adequate Attention and Concentration: Inadequate Memory: Unremarkable Mood: Appropriate, Other ("excellent") Affect: Appropriate, Euthymic Thought Process & Associations: Tangential Thought Content: Bizarre thinking, Hallucinations, Delusional Hallucination Type: Auditory Delusion Type: Bizarre, Paranoid, Other (nondenominational) Suicidal Ideation: No Suicidal Plan: No Suicidal Intention: No Homicidal Ideation: No Homicidal Plan: No Homicidal Intention: No Insight: Poor Judgment: Poor Results Labs Date/Time Source Procedure Growth Status 07/23/17 20:14 Blood Peripheral Aerobic Blood Culture - Final NO GROWTH IN 5 DAYS Complete 07/23/17 20:14 Anaerobic Blood Culture - Final Staphylococcus Epidermidis Complete Vitals/IOs Vital Signs Date Time Temp Pulse Resp B/P (MAP) Pulse Ox O2 Delivery O2 Flow Rate FiO2 09/16/17 04:57 97.8 84 16 128/81 (97) 98 Assessment & Plan Problem List: (1) Psychotic disorder ICD Codes: F29 - Unspecified psychosis not due to a substance or known physiological condition Status: Acute Assessment & Plan Continue current treatment plan Justification for Cont. Inpt. Patient will decompensate in a less restrictive setting Problem Qualifiers (1) Psychotic disorder: Qualified Codes: F28 - Other psychotic disorder not due to a substance or known physiological condition Manny Camacho DO Sep 16, 2017 10:44
[2017-09-16] MEDS: CALCIUM/VITAMIN D 250 MG/125 U TAB PO SCH ×2 (14:05→20:54)
[2017-09-16 16:59] VITALS: BP 124/63; PULSE 98; RESP 18; TEMP 97.1; O2SAT 98
[2017-09-17 05:35] VITALS: BP 120/79; PULSE 84; RESP 16; TEMP 98; O2SAT 97
[2017-09-17] MEDS: hydrALAZINE HCL 25 MG TAB PO SCH ×3 (05:47→21:28)
[2017-09-17] MEDS: HALOPERIDOL LACTATE 5 MG/ML AMP IM SCH ×2 (08:11→21:00)
[2017-09-17] MEDS: BENZTROPINE MESYLATE 1 MG TAB PO SCH ×2 (09:00→21:00)
[2017-09-17] MEDS: NYSTATIN SUSP 500,000 U/5 ML CUP SWISH-SWAL SCH ×4 (09:00→21:29)
[2017-09-17] MEDS: HALOPERIDOL 10 MG TAB PO SCH ×2 (09:13→21:28)
[2017-09-17] MEDS: NIFEdipine 90 MG SUSTAINED RELEASE TAB PO SCH (09:13)
[2017-09-17] MEDS: CALCIUM/VITAMIN D 250 MG/125 U TAB PO SCH ×2 (13:00→21:34)
[2017-09-17 13:04] VITALS: BP 120/74; PULSE 102
--- NOTE | 2017-09-17 15:47 | PD.TTN ---
Patient Problems 1. Discharge planning 2. Medication compliance 3. Knowledge deficit 4. Lack of coping skills Progress Toward Goals Provider Present: Dr. Master Cole, Dr. Binu Tabares Provider Input: 09/12/14 and 09/17/17 overall no changes, past treatment team was held last week and today, overall remain compliant 09/05/17 - Patient remains compliant with medications, religiously preoccupied, and without behavioral outburst. 09/02/18patient overall remains delusional but med compliant , relgiously pre-occupied 08/27/17 now on 2600 encouraged to engage, he appears doing well and is pleasant and compliant but still symptomatic 08/22/17 patient remains delusional and in need for termite renewal inspector care or state hospital 08/20/17 patient has been medically cleared, on 2600 unit, would beenfit from placement at high risk for decompensation 08/17/17 still psychotic and need a safe and stable living arrangement to accomodate his medical and mental health needs 08/13 Patient is still very psychotic and in need for psychiatric and medical stablization 08/08 patient is now taking his psychotropic meds but no medical meds - he is not medically cleared and is still awaiting on medical work up results 07/31/17 patient is now refusing all meds and treatment 07/23/2017 - Dr. Tabares reports the patient remains compliant with medications and without behavoral disturbance. 07/18/2017 - Patient remains a placement issue, compliant with medications, and without behavioral disturbance. 07/02/17 Patient remains psychotic and delusional. 06/27/2017 Patient will require placement in an Assisted Living Facility. He has a histroy of TBI, and fixed delusions that are restorationism nature. 06/20/2017; patient is at the highest dosage of medication and might need to have an additional med added to level off his mood/behavior. Patient is new to unit and will be starting on a medication regiment. Will monitor progress of patient throughout the week. 06/18/2017 - Dr. Tabares reports the patient would like placement in an [facility]. 06/25 - Patient will continue to be looked for in regards to placement. Not behavioral issues on the unit. 07/04/17 Patient continues to meet criteria. Patient has court tomorrow Nurse(s) Present: TONY Lara Nurse(s) Input: 06/20/2017; Patient is taking his medication, eating meals; however patient displays manic behavior, up doing the night hours with limited sleep. 06/25 patient is noted to have no behavioral issues on the unit and has been compliant with medications. denies side effects 07/04/17 Patient's nurse Sara reports patient is religioulsy preoccupied, continues to practice ballet exercies. Medication compliant. Patient is calm and cooperative. Psychiatric Counselors Present: Jenny Schroeder, [facility], Marbella Britton, [facility], Simin Trejo, [facility], Linda Chandler, [facility] Psych Therapist Input: 09/12/17 and 09/17/17 patient is still religiously occupied and certain Satan is in his right foot and smiles ,pleasant and coooperative, but appears internally hearing voices as well when speaking to him longer he appears distracted and wants a break / left alone, he states he has God talking to him so he feels safe and never alone no matter where he is and therefore is very comfortable here 09/05/17 - Patient continues to focus on restorationism preoccupations. He remains calm and pleasant. 09/02/18 patient remains on hospital list - he states he does not like groups as they trigger him to become religiously occupied- he states "God is my better yeast distiller, he has healed me, I do not need any therapy or groups" 08/27/17 patient remains on hospital list, doing well on 2600 unit , but does not like groups 08/22/17 remains delusional , state referral sent, still working on placement however keeps being denied 08/20/17 patient is asking to be discharged to self, but is very delusional and religiously pre-occupied believing Logan will assist him 08/17/17 patient remains delusional, grandiose and lacking some insight but is med compliant and agreeing to a placement, once one is found or arranged, discharge counselors Tete are assisting with working with nursing homes and will try [facility] today 08/13 very delusional\\ he agrees to go to outside and has been walking hallway more often, he hates the TV because it has bad intentions and therefore sits without anything by self in room often, encouraged to read but he appears to deny any activity as it triggers more delusions - he is on the State list for [facility] however counselors continue working on a termite renewal inspector placement which could accomodate him at this time many places have denied him again 08/08 patient is referred for State hospital but may be able to go to a placement if one is suitable and able to meet needs 07/31/17 patient is delusional and medically not stable 07/23/2017 - Patient remains pleasant, religiously preoccupied, and delusional. 07/18/2017 - Counselor reported that the patient remains delusional and religiously preoccupied. Patient's packet was fax[facility] to [facility], and [facility] for admission addessment. 07/02/17 Patient remains medication compliant and continues to isolate. He does not saocialize with peers or staff. 06/27/2017 Counselor will continue to search for approparit placement for this patient, 06/20/2017 Counselor will begin the process for finding appropriate placement Counselor will be in contact with family memebers to recieve collateral information in regards to patient's progress. 06-18-2017 - Counselor has faxed patient's packet to [facility] for admissions review. Counselor called [facility] and there are no beds available at this time. 06/25 patient is cooperative and calm on the unit and counselor will look for placement. Patient does not socialize with peers but is pleasant. 07/04/17 Patient is medication compliant. Patient presents calm, cooperative, affect appropriate. patient's speech is clear, and organized. Patient does present religiously preoccupied. Patient isolates, on unit Group Spec/RT/OT/SCHMIDT Present: Bel Velázquez, GPS, BRAYAN Restrepo, Kane Solis, OT, Zen Gallego, BRAYAN Group Spec/RT/OT/SCHMIDT Input: 09/12/17 and 09/17/17 patient attends select groups and is withdrawn from others 09/05/17 - Patient is unable to tolerate groups. 09/03/17 isolates to self but comes out of for fresh air and food 08/27/17 patient comes outside but does not participate 08/22/17 does not attend [employer], continues to isolate, goes outside at times 08/20/17 attends select groups keeps to self 08/13 isolates to room and does not attend groups 08/08 patient is not attending groups and not medically cleared and on contact precautions 07/1617 does not attend 07/23/2017 - Patient refuses to attend groups. 07/18/2017 - Patient refuses to attend groups. 07/02/17 Patient isolates to his room and the only group he has attended so far is coffee shop. 06/27/2017 Patient refuses most groups, although he will occasionally attemd fresh air and snack time. 06/20/2017: Attends most groups, very cooperate, very hyperverbal Patient is new to unit and has not attend groups yet. 06-18-2017 - Patient attends select groups and his behavior is appropriate. 07/04/17 Patient attends exercise occasionally Discharge Plan SMA Patient will be discharged to [facility] when accepted. Documentation Scribe: LUIS FERNANDO HitchcockI Date Resolved: Sep 05, 2017 Jenny Schroeder LCSW Sep 17, 2017 15:47
--- NOTE | 2017-09-17 17:33 | HHI.PYPN ---
Subjective Remarks Evaluated electronic medical record, labs, and discuss case with staff. Follow- up evaluation occurred in patient's room with the nurse present. Patient found lying on his bed in his room, wakes to verbal stimuli. Patient alert and oriented to self and place. Patient's mood is pleasant. His delusions remained fixed without change. Mental Status Examination Appearance: Appropriate Consciousness: Alert Orientation: Person, Place (at least) Motor Activity: Other (continues to display a resting tremor. No other motoric abnormalities noted.) Speech: Unremarkable Language: Adequate Fund of Knowledge: Adequate Attention and Concentration: Inadequate Memory: Unremarkable Mood: Appropriate, Other ("excellent") Affect: Appropriate, Euthymic Thought Process & Associations: Tangential Thought Content: Bizarre thinking, Hallucinations, Delusional Hallucination Type: Auditory Delusion Type: Bizarre, Paranoid, Other (anabaptism) Suicidal Ideation: No Suicidal Plan: No Suicidal Intention: No Homicidal Ideation: No Homicidal Plan: No Homicidal Intention: No Insight: Poor Judgment: Poor Results Labs Date/Time Source Procedure Growth Status 07/23/17 20:14 Blood Peripheral Aerobic Blood Culture - Final NO GROWTH IN 5 DAYS Complete 07/23/17 20:14 Anaerobic Blood Culture - Final Staphylococcus Epidermidis Complete Vitals/IOs Vital Signs Date Time Temp Pulse Resp B/P (MAP) Pulse Ox O2 Delivery O2 Flow Rate FiO2 09/17/17 13:04 102 120/74 (89) 09/17/17 05:35 98.0 16 97 Assessment & Plan Problem List: (1) Psychotic disorder ICD Codes: F29 - Unspecified psychosis not due to a substance or known physiological condition Status: Acute Assessment & Plan Estimated LOS: Continue with treatment plan and monitoring, awaiting safe discharge plan. Justification for Cont. Inpt. Admitting this patient to a lower level of care would result in decompensation. Problem Qualifiers (1) Psychotic disorder: Qualified Codes: F28 - Other psychotic disorder not due to a substance or known physiological condition Amanda Saunders Sep 17, 2017 17:33
[2017-09-17 17:50] VITALS: BP 130/79; PULSE 104; RESP 18; TEMP 99.5; O2SAT 97
[2017-09-17 17:58] VITALS: TEMP 100
[2017-09-17] MEDS: ACETAMINOPHEN 325 MG TAB PO PRN ×2 (17:58→22:27)
[2017-09-18 06:00] VITALS: PULSE 99; O2SAT 98
[2017-09-18 06:15] VITALS: BP 109/72; PULSE 18; RESP 18; TEMP 98.6
[2017-09-18] MEDS: hydrALAZINE HCL 25 MG TAB PO SCH ×3 (06:26→21:12)
[2017-09-18] MEDS: ACETAMINOPHEN 325 MG TAB PO PRN (06:27)
[2017-09-18] MEDS: HALOPERIDOL LACTATE 5 MG/ML AMP IM SCH ×2 (07:03→21:00)
[2017-09-18] MEDS: BENZTROPINE MESYLATE 1 MG TAB PO SCH ×2 (07:55→21:12)
[2017-09-18] MEDS: NYSTATIN SUSP 500,000 U/5 ML CUP SWISH-SWAL SCH ×4 (07:55→21:12)
[2017-09-18] MEDS: NIFEdipine 90 MG SUSTAINED RELEASE TAB PO SCH (07:55)
[2017-09-18] MEDS: HALOPERIDOL 10 MG TAB PO SCH ×2 (07:55→21:12)
[2017-09-18] MEDS: IBUPROFEN 400 MG TAB PO PRN ×2 (09:30→16:34)
[2017-09-18] MEDS: PHENOL 1.4% SOLN 180 ML BTL OROPHARYNG PRN ×4 (09:30→16:53)
[2017-09-18 12:49] VITALS: BP 115/73; PULSE 95; RESP 20; TEMP 97.7
[2017-09-18] MEDS: CALCIUM/VITAMIN D 250 MG/125 U TAB PO SCH ×2 (12:49→21:12)
--- NOTE | 2017-09-18 13:51 | HHI.PYPN ---
Subjective Remarks Reviewed medical record and discussed case with staff. Nurse reports that patient had a fever last night and is c/o a sore throat this morning. Ordered prn Ibuprofen and Chloraseptic throat spray. Conducted follow-up in patient's room. Patient lying in bed awake, alert, and oriented to self and place. He reports feeling "better", states that he slept well and his appetite is good. He remains in his fixed delusion/hallucination of having Logan in his ear, Satan on his foot, and Fireball and his employee benefits attorney on his shoulder. He reports auditory hallucinations of their voices talking to him. Denies SI and HI. Compliant with staff and medications. Mental Status Examination Appearance: Appropriate Consciousness: Alert Orientation: Person, Place (at least) Motor Activity: Other (continues to display a resting tremor. No other motoric abnormalities noted.) Speech: Unremarkable Language: Adequate Fund of Knowledge: Adequate Attention and Concentration: Inadequate Memory: Unremarkable Mood: Appropriate, Other ("excellent") Affect: Appropriate, Euthymic Thought Process & Associations: Tangential Thought Content: Bizarre thinking, Hallucinations, Delusional Hallucination Type: Auditory Delusion Type: Bizarre, Paranoid, Other (jewish) Suicidal Ideation: No Suicidal Plan: No Suicidal Intention: No Homicidal Ideation: No Homicidal Plan: No Homicidal Intention: No Insight: Poor Judgment: Poor Results Labs Date/Time Source Procedure Growth Status 07/23/17 20:14 Blood Peripheral Aerobic Blood Culture - Final NO GROWTH IN 5 DAYS Complete 07/23/17 20:14 Anaerobic Blood Culture - Final Staphylococcus Epidermidis Complete Vitals/IOs Vital Signs Date Time Temp Pulse Resp B/P (MAP) Pulse Ox O2 Delivery O2 Flow Rate FiO2 09/18/17 12:49 97.7 95 20 115/73 (87) 09/18/17 06:00 98 Assessment & Plan Problem List: (1) Psychotic disorder ICD Codes: F29 - Unspecified psychosis not due to a substance or known physiological condition Status: Acute Assessment & Plan Estimated LOS: Patient remains fixed in his hallucinations and delusion. Appropriate placement being sought for a safe discharge. Justification for Cont. Inpt. Appropriate placement continues to be sought in order to provide a safe discharge plan. Moving patient to a lower level of care would result in decompensation. Problem Qualifiers (1) Psychotic disorder: Qualified Codes: F28 - Other psychotic disorder not due to a substance or known physiological condition Amanda Saunders Sep 18, 2017 13:51
[2017-09-18 18:15] VITALS: BP 113/69; PULSE 88; RESP 18; TEMP 98.2; O2SAT 99
[2017-09-19 05:36] VITALS: BP 119/74; PULSE 69; RESP 18; TEMP 98.3; O2SAT 96
[2017-09-19] MEDS: hydrALAZINE HCL 25 MG TAB PO SCH ×3 (05:38→21:01)
[2017-09-19 06:08] VITALS: BP 119/74; PULSE 64; RESP 18; TEMP 98.3; O2SAT 96
[2017-09-19] MEDS: NIFEdipine 90 MG SUSTAINED RELEASE TAB PO SCH (08:30)
[2017-09-19] MEDS: HALOPERIDOL LACTATE 5 MG/ML AMP IM SCH ×2 (08:30→21:00)
[2017-09-19] MEDS: BENZTROPINE MESYLATE 1 MG TAB PO SCH ×2 (08:30→21:01)
[2017-09-19] MEDS: NYSTATIN SUSP 500,000 U/5 ML CUP SWISH-SWAL SCH ×4 (08:30→21:01)
[2017-09-19] MEDS: HALOPERIDOL 10 MG TAB PO SCH ×2 (08:30→21:01)
[2017-09-19] MEDS: PHENOL 1.4% SOLN 180 ML BTL OROPHARYNG PRN (08:31)
--- NOTE | 2017-09-19 11:54 | HHI.PYPN ---
Subjective Remarks Reviewed electronic medical record discussed patient with staff. Patient's follow-up was conducted in his room. Patient was found sitting in a chair awake , alert, and oriented to self and place. His speech is clear, organized, and for the most part logical. His hallucinations continue and he reports having a congregational mary anne in his ear, Satan on his foot, and fireball and his clinical care manager on his shoulder. He has no physical complaints today. Reports that he slept well and his appetite has been good. He remains compliant with all of his medications and staff. Mental Status Examination Appearance: Appropriate Consciousness: Alert Orientation: Person, Place (at least) Motor Activity: Other (continues to display a resting tremor. No other motoric abnormalities noted.) Speech: Unremarkable Language: Adequate Fund of Knowledge: Adequate Attention and Concentration: Inadequate Memory: Unremarkable Mood: Appropriate, Other ("excellent") Affect: Appropriate, Euthymic Thought Process & Associations: Tangential Thought Content: Bizarre thinking, Hallucinations, Delusional Hallucination Type: Auditory Delusion Type: Bizarre, Paranoid, Other (congregational) Suicidal Ideation: No Suicidal Plan: No Suicidal Intention: No Homicidal Ideation: No Homicidal Plan: No Homicidal Intention: No Insight: Poor Judgment: Poor Results Labs Date/Time Source Procedure Growth Status 07/23/17 20:14 Blood Peripheral Aerobic Blood Culture - Final NO GROWTH IN 5 DAYS Complete 07/23/17 20:14 Anaerobic Blood Culture - Final Staphylococcus Epidermidis Complete Vitals/IOs Vital Signs Date Time Temp Pulse Resp B/P (MAP) Pulse Ox O2 Delivery O2 Flow Rate FiO2 09/19/17 06:08 98.3 64 18 119/74 (89) 96 Intake and Output 09/19/17 09/19/17 09/20/17 08:00 16:00 00:00 Intake Total 240 ml Balance 240 ml Assessment & Plan Problem List: (1) Psychotic disorder ICD Codes: F29 - Unspecified psychosis not due to a substance or known physiological condition Status: Acute Assessment & Plan Estimated LOS: Safe discharge plan has been identified for this patient. Counselors advise he will be moved to the state facility on the . Justification for Cont. Inpt. Moving this patient to a lower level of care would result in decompensation. Problem Qualifiers (1) Psychotic disorder: Qualified Codes: F28 - Other psychotic disorder not due to a substance or known physiological condition Amanda Saunders Sep 19, 2017 11:54
[2017-09-19] MEDS: CALCIUM/VITAMIN D 250 MG/125 U TAB PO SCH ×2 (13:17→21:02)
--- NOTE | 2017-09-19 15:40 | PD.TTN ---
Patient Problems 1. Discharge planning 2. Medication compliance 3. Knowledge deficit 4. Lack of coping skills Progress Toward Goals Provider Present: Dr. Master Cole, Dr. Binu Tabares Provider Input: 09/19/17 overall same and no changes at this time, state is accepting patient 09/12/14 and 09/17/17 overall no changes, past treatment team was held last week and today, overall remain compliant 09/05/17 - Patient remains compliant with medications, religiously preoccupied, and without behavioral outburst. 09/02/18patient overall remains delusional but med compliant , relgiously pre-occupied 08/27/17 now on 2600 encouraged to engage, he appears doing well and is pleasant and compliant but still symptomatic 08/22/17 patient remains delusional and in need for long term care phlebotomist care or [facility] 08/20/17 patient has been medically cleared, on 2600 unit, would beenfit from placement at high risk for decompensation 08/17/17 still psychotic and need a safe and stable living arrangement to accomodate his medical and mental health needs 08/13 Patient is still very psychotic and in need for psychiatric and medical stablization 08/08 patient is now taking his psychotropic meds but no medical meds - he is not medically cleared and is still awaiting on medical work up results 07/31/17 patient is now refusing all meds and treatment 07/23/2017 - Dr. Tabares reports the patient remains compliant with medications and without behavoral disturbance. 07/18/2017 - Patient remains a placement issue, compliant with medications, and without behavioral disturbance. 07/02/17 Patient remains psychotic and delusional. 06/27/2017 Patient will require placement in an Assisted Living Facility. He has a histroy of TBI, and fixed delusions that are nondenominational nature. 06/20/2017; patient is at the highest dosage of medication and might need to have an additional med added to level off his mood/behavior. Patient is new to unit and will be starting on a medication regiment. Will monitor progress of patient throughout the week. 06/18/2017 - Dr. Tabares reports the patient would like placement in an [facility]. 06/25 - Patient will continue to be looked for in regards to placement. Not behavioral issues on the unit. 07/04/17 Patient continues to meet criteria. Patient has court tomorrow Nurse(s) Present: JaneRN Nurse(s) Input: 06/20/2017; Patient is taking his medication, eating meals; however patient displays manic behavior, up doing the night hours with limited sleep. 06/25 patient is noted to have no behavioral issues on the unit and has been compliant with medications. denies side effects 07/04/17 Patient's nurse Sara reports patient is religioulsy preoccupied, continues to practice ballet exercies. Medication compliant. Patient is calm and cooperative. Psychiatric Counselors Present: Jenny Schroeder [facility], Marbella Britton, [facility], Simin Trejo, [facility], Linda Chandler, [facility] Psych Therapist Input: 09/19/17 patient is going to the [facility] this month 09/12/17 and 09/17/17 patient is still religiously occupied and certain Yamilan is in his right foot and smiles ,pleasant and coooperative, but appears internally hearing voices as well when speaking to him longer he appears distracted and wants a break / left alone, he states he has God talking to him so he feels safe and never alone no matter where he is and therefore is very comfortable here 09/05/17 - Patient continues to focus on nondenominational preoccupations. He remains calm and pleasant. 09/02/18 patient remains on hospital list - he states he does not like groups as they trigger him to become religiously occupied- he states "God is my better natural resource officer, he has healed me, I do not need any therapy or groups" 08/27/17 patient remains on hospital list, doing well on 2600 unit , but does not like groups 08/22/17 remains delusional , state referral sent, still working on placement however keeps being denied 08/20/17 patient is asking to be discharged to self, but is very delusional and religiously pre-occupied believing Logan will assist him 08/17/17 patient remains delusional, grandiose and lacking some insight but is med compliant and agreeing to a placement, once one is found or arranged, discharge counselors Tete are assisting with working with nursing homes and will try [facility] today 08/13 very delusional\\ he agrees to go to outside and has been walking hallway more often, he hates the TV because it has bad intentions and therefore sits without anything by self in room often, encouraged to read but he appears to deny any activity as it triggers more delusions - he is on the State list for [facility] however counselors continue working on a senior living placement which could accomodate him at this time many places have denied him again 08/08 patient is referred for [facility] but may be able to go to a placement if one is suitable and able to meet needs 07/31/17 patient is delusional and medically not stable 07/23/2017 - Patient remains pleasant, religiously preoccupied, and delusional. 07/18/2017 - Counselor reported that the patient remains delusional and religiously preoccupied. [facility] add[facility]. 07/02/17 Patient remains medication compliant and continues to isolate. He does not saocialize with peers or staff. 06/27/2017 Counselor will continue to search for approparit placement for this patient, 06/20/2017 Counselor will begin the process for finding appropriate placement Counselor will be in contact with family memebers to recieve collateral information in regards to patient's progress. 06-18-2017 - Counselor has faxed patient's packet to [facility] for admissions review. Counselor called [facility] and there are no beds available at this time. 06/25 patient is cooperative and calm on the unit and counselor will look for placement. Patient does not socialize with peers but is pleasant. 07/04/17 Patient is medication compliant. Patient presents calm, cooperative, affect appropriate. patient's speech is clear, and organized. Patient does present religiously preoccupied. Patient isolates, on unit Group Spec/RT/OT/SCHMIDT Present: Bel Velázquez, GPS, BRAYAN Restrepo, Kane Solis, OT, BRAYAN Silva Group Spec/RT/OT/SCHMIDT Input: 09/12/17 and 09/17/17 patient attends select groups and is withdrawn from others 09/05/17 - Patient is unable to tolerate groups. 09/03/17 isolates to self but comes out of for fresh air and food 08/27/17 patient comes outside but does not participate 08/22/17 does not attend gruops, continues to isolate, goes outside at times 08/20/17 attends select groups keeps to self 08/13 isolates to room and does not attend groups 08/08 patient is not attending groups and not medically cleared and on contact precautions 07/1617 does not attend 07/23/2017 - Patient refuses to attend groups. 07/18/2017 - Patient refuses to attend groups. 07/02/17 Patient isolates to his room and the only group he has attended so far is coffee shop. 06/27/2017 Patient refuses most groups, although he will occasionally attemd fresh air and snack time. 06/20/2017: Attends most groups, very cooperate, very hyperverbal Patient is new to unit and has not attend groups yet. 06-18-2017 - Patient attends select groups and his behavior is appropriate. 07/04/17 Patient attends exercise occasionally Discharge Plan SMA Patient will be discharged to [facility] when accepted. Documentation Scribe: Simin Trejo [facility] Date Resolved: Sep 05, 2017 Jenny SchroederW Sep 19, 2017 15:40
[2017-09-19 17:54] VITALS: BP 130/80; PULSE 102; RESP 18; TEMP 98.6; O2SAT 98
[2017-09-20 05:49] VITALS: BP 118/77; PULSE 101; RESP 20; TEMP 97.7; O2SAT 99
[2017-09-20] MEDS: hydrALAZINE HCL 25 MG TAB PO SCH ×3 (06:09→21:02)
[2017-09-20] MEDS: ACETAMINOPHEN 325 MG TAB PO PRN (07:23)
[2017-09-20] MEDS: BENZTROPINE MESYLATE 1 MG TAB PO SCH ×2 (08:31→21:00)
[2017-09-20] MEDS: HALOPERIDOL 10 MG TAB PO SCH ×2 (08:31→21:02)
[2017-09-20] MEDS: NIFEdipine 90 MG SUSTAINED RELEASE TAB PO SCH (08:31)
[2017-09-20] MEDS: NYSTATIN SUSP 500,000 U/5 ML CUP SWISH-SWAL SCH ×4 (08:31→21:02)
[2017-09-20] MEDS: HALOPERIDOL LACTATE 5 MG/ML AMP IM SCH ×2 (08:31→21:00)
[2017-09-20] MEDS: PHENOL 1.4% SOLN 180 ML BTL OROPHARYNG PRN (08:33)
[2017-09-20] MEDS: CALCIUM/VITAMIN D 250 MG/125 U TAB PO SCH ×2 (13:34→21:06)
--- NOTE | 2017-09-20 15:11 | HHI.PYPN ---
Subjective Remarks Reviewed medical record and discussed patient with staff. Staff reports no changes overnight. Follow-up was conducted in patient's room. Patient found lying in bed responds to verbal stimuli. His alert, and oriented to self and place. He complains of "itchy hands" but states they are worse last night and are improving now. When asked if he would like medication for them he refused. Patient's mood is good and his affect is euthymic. His fixed bizarre delusions and hallucinations are still in place. He reports having Logan, the father, Karla, Lord God in his ear, Satan on his foot, and his tubing supervisor with fireball on his shoulder. Mental Status Examination Appearance: Appropriate Consciousness: Alert Orientation: Person, Place (at least) Motor Activity: Other (continues to display a resting tremor. No other motoric abnormalities noted.) Speech: Unremarkable Language: Adequate Fund of Knowledge: Adequate Attention and Concentration: Inadequate Memory: Unremarkable Mood: Appropriate, Other ("excellent") Affect: Appropriate, Euthymic Thought Process & Associations: Tangential Thought Content: Bizarre thinking, Hallucinations, Delusional Hallucination Type: Auditory Delusion Type: Bizarre, Paranoid, Other (restorationism) Suicidal Ideation: No Suicidal Plan: No Suicidal Intention: No Homicidal Ideation: No Homicidal Plan: No Homicidal Intention: No Insight: Poor Judgment: Poor Results Labs Date/Time Source Procedure Growth Status 07/23/17 20:14 Blood Peripheral Aerobic Blood Culture - Final NO GROWTH IN 5 DAYS Complete 07/23/17 20:14 Anaerobic Blood Culture - Final Staphylococcus Epidermidis Complete Vitals/IOs Vital Signs Date Time Temp Pulse Resp B/P (MAP) Pulse Ox O2 Delivery O2 Flow Rate FiO2 09/20/17 05:49 97.7 101 20 118/77 (91) 99 Intake and Output 09/20/17 09/20/17 09/21/17 08:00 16:00 00:00 Intake Total 600 ml Balance 600 ml Assessment & Plan Problem List: (1) Psychotic disorder ICD Codes: F29 - Unspecified psychosis not due to a substance or known physiological condition Status: Acute Assessment & Plan Estimated LOS: [facility]. Justification for Cont. Inpt. Safe discharge plan in place. Moving this patient to a lower level of care would result in decompensation. Problem Qualifiers (1) Psychotic disorder: Qualified Codes: F28 - Other psychotic disorder not due to a substance or known physiological condition Amanda Saunders Sep 20, 2017 15:11
[2017-09-20 17:49] VITALS: BP 125/76; PULSE 97; RESP 20; TEMP 97.5; O2SAT 99
[2017-09-21 05:21] VITALS: BP 113/80; PULSE 80; RESP 16; TEMP 98.1; O2SAT 98
[2017-09-21] MEDS: hydrALAZINE HCL 25 MG TAB PO SCH ×3 (05:58→21:27)
[2017-09-21] MEDS: HALOPERIDOL LACTATE 5 MG/ML AMP IM SCH ×2 (09:00→21:00)
[2017-09-21] MEDS: BENZTROPINE MESYLATE 1 MG TAB PO SCH ×2 (09:00→21:00)
[2017-09-21] MEDS: NYSTATIN SUSP 500,000 U/5 ML CUP SWISH-SWAL SCH ×4 (09:20→21:23)
[2017-09-21] MEDS: NIFEdipine 90 MG SUSTAINED RELEASE TAB PO SCH (09:20)
[2017-09-21] MEDS: HALOPERIDOL 10 MG TAB PO SCH ×2 (09:20→21:23)
[2017-09-21] MEDS: CALCIUM/VITAMIN D 250 MG/125 U TAB PO SCH ×2 (12:53→21:27)
--- NOTE | 2017-09-21 14:38 | HHI.PYPN ---
Subjective Remarks Reviewed electronic medical record to discuss case with staff. Patient was once again found lying in his bed. He wakes easily to verbal stimuli. He is alert and oriented to person and place at least. He reports that he slept well and his appetite is been good. His mood is good and his affect is euthymic. His delusions remain fixed. He is compliant with staff and medications. He will be placed in a state run facility on September 27. Mental Status Examination Appearance: Appropriate Consciousness: Alert Orientation: Person, Place (at least) Motor Activity: Other (continues to display a resting tremor. No other motoric abnormalities noted.) Speech: Unremarkable Language: Adequate Fund of Knowledge: Adequate Attention and Concentration: Inadequate Memory: Unremarkable Mood: Appropriate, Other ("excellent") Affect: Appropriate, Euthymic Thought Process & Associations: Tangential Thought Content: Bizarre thinking, Hallucinations, Delusional Hallucination Type: Auditory Delusion Type: Bizarre, Paranoid, Other (restorationist) Suicidal Ideation: No Suicidal Plan: No Suicidal Intention: No Homicidal Ideation: No Homicidal Plan: No Homicidal Intention: No Insight: Poor Judgment: Poor Results Labs Date/Time Source Procedure Growth Status 07/23/17 20:14 Blood Peripheral Aerobic Blood Culture - Final NO GROWTH IN 5 DAYS Complete 07/23/17 20:14 Anaerobic Blood Culture - Final Staphylococcus Epidermidis Complete Vitals/IOs Vital Signs Date Time Temp Pulse Resp B/P (MAP) Pulse Ox O2 Delivery O2 Flow Rate FiO2 09/21/17 05:21 98.1 80 16 113/80 (91) 98 Intake and Output 09/21/17 09/21/17 09/22/17 08:00 16:00 00:00 Intake Total 480 ml Balance 480 ml Assessment & Plan Problem List: (1) Psychotic disorder ICD Codes: F29 - Unspecified psychosis not due to a substance or known physiological condition Status: Acute Assessment & Plan Estimated LOS: Patient will be discharged to a state run facility on September 27. He is unable to contract for safety or provide self-care. Justification for Cont. Inpt. Moving this patient to a lower level of care would result in decompensation. She is unable to care for himself. Problem Qualifiers (1) Psychotic disorder: Qualified Codes: F28 - Other psychotic disorder not due to a substance or known physiological condition Amanda Saunders Sep 21, 2017 14:38
[2017-09-21 18:55] VITALS: BP 112/69; PULSE 96; RESP 18; TEMP 97.6; O2SAT 100
[2017-09-22 06:00] VITALS: BP 130/83; PULSE 95; RESP 17; TEMP 98.4; O2SAT 98
[2017-09-22] MEDS: hydrALAZINE HCL 25 MG TAB PO SCH ×3 (06:00→20:53)
[2017-09-22] MEDS: HALOPERIDOL LACTATE 5 MG/ML AMP IM SCH ×2 (08:10→20:06)
[2017-09-22] MEDS: NIFEdipine 90 MG SUSTAINED RELEASE TAB PO SCH (08:11)
[2017-09-22] MEDS: HALOPERIDOL 10 MG TAB PO SCH ×2 (08:11→20:52)
[2017-09-22] MEDS: NYSTATIN SUSP 500,000 U/5 ML CUP SWISH-SWAL SCH ×4 (08:11→20:53)
[2017-09-22] MEDS: BENZTROPINE MESYLATE 1 MG TAB PO SCH ×2 (08:12→20:53)
[2017-09-22] MEDS: diphenhydrAMINE HCL 50 MG CAP PO PRN (11:30)
[2017-09-22 11:59] VITALS: BP 135/86; PULSE 91; RESP 18; TEMP 97.9; O2SAT 100
[2017-09-22] MEDS: CALCIUM/VITAMIN D 250 MG/125 U TAB PO SCH ×2 (12:18→20:52)
[2017-09-22 14:02] VITALS: TEMP 99.3
--- NOTE | 2017-09-22 16:00 | HHI.PYPN ---
Subjective Remarks Pt seen and discussed with staff. He remains pleasantly psychotic and disorganized. He is compliant with medications. No SI/HI. Staff report that pt has been complaining of upset stomach and itching. Pt reported to MD during rounds that he was feeling much better. After rounds received call from RN who reported pt had fever of 101, HR of 120 and was dizzy and lightheaded. Pt is HIV + and is not currently taking HIV medications.. Consult for hospitalist service was placed in EHR and this physician spoke directly to donations attendant hospitalist to request pt be seen. Mental Status Examination Appearance: Appropriate Consciousness: Alert Orientation: Person, Place (at least) Motor Activity: Other (continues to display a resting tremor. No other motoric abnormalities noted.) Speech: Unremarkable Language: Adequate Fund of Knowledge: Adequate Attention and Concentration: Inadequate Memory: Unremarkable Mood: Appropriate, Other ("excellent") Affect: Appropriate, Euthymic Thought Process & Associations: Tangential Thought Content: Bizarre thinking, Hallucinations, Delusional Hallucination Type: Auditory Delusion Type: Bizarre, Paranoid, Other (latter-day) Suicidal Ideation: No Suicidal Plan: No Suicidal Intention: No Homicidal Ideation: No Homicidal Plan: No Homicidal Intention: No Insight: Poor Judgment: Poor Results Labs Date/Time Source Procedure Growth Status 07/23/17 20:14 Blood Peripheral Aerobic Blood Culture - Final NO GROWTH IN 5 DAYS Complete 07/23/17 20:14 Anaerobic Blood Culture - Final Staphylococcus Epidermidis Complete Vitals/IOs Vital Signs Date Time Temp Pulse Resp B/P (MAP) Pulse Ox O2 Delivery O2 Flow Rate FiO2 09/22/17 14:02 99.3 09/22/17 11:59 91 18 135/86 (102) 100 Assessment & Plan Problem List: (1) Psychotic disorder ICD Codes: F29 - Unspecified psychosis not due to a substance or known physiological condition Status: Acute Assessment & Plan Continue current psychiatric medications. Appreciate hospitalist management.Estimated LOS: days Justification for Cont. Inpt. impairments in reality testing Problem Qualifiers (1) Psychotic disorder: Qualified Codes: F28 - Other psychotic disorder not due to a substance or known physiological condition Radha Meyers MD Sep 22, 2017 16:00
[2017-09-22 16:43] VITALS: BP 146/80; PULSE 120; RESP 18; TEMP 100.7; O2SAT 97
[2017-09-22 17:32] LABS: AUTOMATED NEUTROPHIL # 5.3 TH/MM3 (1.8-7.7); BASOPHIL # 0.1 TH/MM3 (0-0.2); BASOPHIL % 0.6 % (0.0-2.0); EOSINOPHIL # 0.1 TH/MM3 (0-0.4); EOSINOPHIL % 0.5 % (0.0-4.0); HEMATOCRIT 34.8 % (39.0-51.0); HEMOGLOBIN 12.3 GM/DL (13.0-17.0); LYMPH % 55.2 % (9.0-44.0); LYMPHOCYTE # 7.9 TH/MM3 (1.0-4.8); MEAN CELL VOLUME 84.5 FL (80.0-100.0); MEAN CORPUSCULAR HEMOGLOBIN 29.8 PG (27.0-34.0); MEAN CORPUSCULAR HGB CONC 35.3 % (32.0-36.0); MEAN PLATELET VOLUME 7.8 FL (7.0-11.0); MONO % 6.8 % (0.0-8.0); NEUT % 36.9 % (16.0-70.0); PLATELET COUNT 227 TH/MM3 (150-450); RED BLOOD COUNT 4.12 MIL/MM3 (4.50-5.90); WHITE BLOOD COUNT 14.3 TH/MM3 (4.0-11.0)
--- NOTE | 2017-09-22 17:53 | RADRPT ---
EXAM DATE/TIME: 09/22/2017 17:40 [facility] COMPARISON: No previous studies available for comparison. INDICATIONS : Fever. MEDICAL HISTORY : Hypertension. SURGICAL HISTORY : None. ENCOUNTER: Initial ACUITY: 1 day PAIN SCORE: 0/10 LOCATION: Bilateral chest FINDINGS: PA and lateral views of the chest demonstrate the lungs to be symmetrically aerated without evidence of mass, infiltrate or effusion. The cardiomediastinal contours are unremarkable. Osseous structure s are intact. CONCLUSION: 1. No active disease. Wesly Chapin MD on September 22, 2017 at 17:50 Board Certified Radiologist. This report was verified electronically.
[2017-09-22 17:54] LABS: ALBUMIN 3.1 GM/DL (3.4-5.0); AST (GOT) 87 U/L (15-37); BICARBONATE 20.1 MEQ/L (21.0-32.0); BLOOD UREA NITROGEN 20 MG/DL (7-18); CALCIUM 8.5 MG/DL (8.5-10.1); CHLORIDE 100 MEQ/L (98-107); CREATININE 0.86 MG/DL (0.60-1.30); GLOMERULAR FILTRATION RATE 91 ML/MIN (>89); GLUCOSE,RANDOM 107 MG/DL (74-106); SODIUM (NA) 131 MEQ/L (136-145)
[2017-09-22 17:56] LABS: ALT (GPT) 92 U/L (12-78)
[2017-09-22 17:57] LABS: ALKALINE PHOSPHATASE 241 U/L (45-117); TOTAL BILIRUBIN ADULT 0.5 MG/DL (0.2-1.0); TOTAL PROTEIN 7.2 GM/DL (6.4-8.2)
--- NOTE | 2017-09-22 17:58 | HHI.PR ---
Subjective Remarks Reconsulted: Febrile, tachycardia Patient PMHX HIV, has not been restarted with HAART medication. He was febrile and tachycardic today. Seen and examined. States he is okay. As per RN, patient is all flushed. There was no rash noted today but previous day patient had some welts and was given Benadryl and it disappeared. Denies nausea, vomiting, diarrhea. Denies any chest pain, palpitations. Denies any cough, urinary symptoms, sinus symptoms, sore throat, abdominal pain. Objective Vitals Vital Signs Date Time Temp Pulse Resp B/P (MAP) Pulse Ox O2 Delivery O2 Flow Rate FiO2 09/22/17 16:43 100.7 120 18 146/80 (102) 97 09/22/17 14:02 99.3 09/22/17 11:59 97.9 91 18 135/86 (102) 100 09/22/17 06:00 98.4 95 17 130/83 (99) 98 09/21/17 18:55 97.6 96 18 112/69 (83) 100 I/O 09/21/17 09/21/17 09/21/17 09/22/17 09/22/17 09/22/17 06:59 14:59 22:59 06:59 14:59 22:59 Intake Total 360 ml 840 ml Balance 360 ml 840 ml Intake Oral 360 ml 840 ml Imaging Last Impressions Brain MRI 08/23/17 0000 Signed Impressions: Service Date/Time: August 15:16 - CONCLUSION: 1. 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 2. No findings to indicate acute cortical infarction are seen. 3. Scattered areas of increased T2 signal in the white matter most consistent with microvascular ischemic demyelinative change. 4. No abnormal enhancement identified within the brain parenchyma. Figueroa Nina MD Chest CT 08/08/17 0000 Signed Impressions: Service Date/Time: Tuesday, August 08, 2017 20:14 - CONCLUSION: 1. No acute findings. No adenopathy or effusion. Wesly Chapin MD Abdomen/Pelvis CT 08/08/17 0000 Signed Impressions: Service Date/Time: Tuesday, August 08, 2017 20:14 - CONCLUSION: 1. No acute findings. No adenopathy. Mild constipation. Wesly Chapin MD Liver Ultrasound 07/26/17 0000 Signed Impressions: Service Date/Time: July 16:09 - CONCLUSION: 1. Unremarkable abdominal ultrasound examination. Randall Patten MD Chest X-Ray 07/23/17 1850 Signed Impressions: Service Date/Time: Sunday, July 23, 2017 19:34 - CONCLUSION: Normal examination. Sherif Steel MD Head CT 06/20/17 0000 Signed Impressions: Service Date/Time: June 03:11 - CONCLUSION: 1. No acute hemorrhage or mass effect. 2. Areas of encephalomalacia in the left temporal and parietal lobes. 3. Mild to moderate atrophic change. Simone Wolf MD Renal Ultrasound 06/19/17 0000 Signed Impressions: Service Date/Time: Monday, June 19, 2017 16:47 - CONCLUSION: 1. Elevated velocities in the proximal and mid right renal artery. 2. Nonvisualization of the left mid renal artery with elevated velocity in the distal portion of the renal artery. 3. Echogenic kidneys characteristic of medical renal disease. There is no hydronephrosis. Simone Wolf MD Objective Remarks GENERAL: This is a well-nourished, well-developed patient, in no apparent distress. SKIN: Warm and dry. Flushed, erythematous throughout. No rash noted. HEENT: Normocephalic. Pupils equal round and reactive. Nose without bleeding. Airway patent. NECK: Trachea midline. CARDIOVASCULAR: Regular rate and rhythm without murmurs, gallops, or rubs. RESPIRATORY: Clear to auscultation. Breath sounds equal bilaterally. No wheezes , rales, or rhonchi. GASTROINTESTINAL: Abdomen soft, non-tender, nondistended. Bowel Sounds normoactive x4. MUSCULOSKELETAL: Extremities without clubbing, cyanosis, or edema. NEUROLOGICAL: Awake and alert. Oriented to place, person. No focal neuro deficit. Moves all extremities. Normal speech. Procedures NONE A/P Problem List: (1) Hypertension ICD Code: I10 - Essential (primary) hypertension Status: Chronic (2) HIV (human immunodeficiency virus infection) ICD Code: Z21 - Asymptomatic human immunodeficiency virus [HIV] infection status Status: Chronic (3) Viral rash ICD Code: B09 - Unspecified viral infection characterized by skin and mucous membrane lesions Status: Resolved Assessment and Plan 61-year-old male with primary medical history of HTN, HIV, bipolar, schizoaffective disorder who came initially to the hospital under [place] act for psychiatric evaluation. BiPolar disorder, schizophrenia - Managed by psychiatry team SIRS, Sepsis HIV not on HAART Viral Exanthem? - Temp 100.7, HR 120s, Skin is flushed - erythematous -Check labs blood cultures, lactic acid, CBC, CMP -Check UA, chest x-ray follow-up results -Check Influenza, respiratory panel -Repeat CD4 panel, previous values in July -IVF NS 100ml/hr -Start Vancomycin/ Zosyn for now, Consider acyclovir -ID consult for further recommendation. He was being followed before. HTN, controlled - on hydralazine 25mg Q8hr and Procardia 90mg daily -Clonidine as needed -Mild elevation on BP 146/80, patient is tachycardic at 120s -IVF hydration Noncompliance, HIV Hep C, history - HAART previously restarted but with adverse reaction to Odefsey, it was stopped - Odefsey components added to allergy list, genotype ordered by ID prior to restarting HAART. - Monitor rash, VSS, no respiratory complaints. -Hep C, will need to follow up with GI for treatment in the outpatient setting -HIV RNA copies greater than 10Million, HIV RNA log copies greater than 7 (), CD4 785 (08/06/17) >400 of HAART -We will consult infectious disease for further recommendation Lymphocytosis - Likely due to HIV and Hep C. DVT prop ambulatory Problem Qualifiers (1) Hypertension: Qualified Codes: I10 - Essential (primary) hypertension Juanita Farley Sep 22, 2017 17:58
[2017-09-22] MEDS ORDERED: Vancomycin Consult Pharmacy 1 EA OTHER PRN (18:15)
[2017-09-22 18:22] LABS: LYMPHOCYTES 52 % (9-44); MONOCYTES 3 % (0-8); NEUTROPHIL # MANUAL DIFF 6.4 TH/MM3 (1.8-7.7); OVALOCYTES 1+ (NORMAL); POLYS (SEG NEUTROPHILS) 45 % (16-70)
[2017-09-22] MEDS: SODIUM CHLOR 0.9% 1000 ML INJ 1,000 ML IV SCH (20:52)
[2017-09-22] MEDS: PIPERACIL-TAZO 3.375 GM PREMIX 50 ML IV SCH (20:53)
[2017-09-22] MEDS: VANCOMYCIN INJ 1,000 MG in SODIUM CHLOR 0.9% 250 ML INJ 250 ML IV SCH (20:54)
[2017-09-22 21:02] LABS: BILIRUBIN, URINE NEG (NEG); BLOOD, URINE NEG (NEG); GLUCOSE,URINE NEG (NEG); KETONE, URINE NEG (NEG); NITRITE,URINE NEG (NEG); SQUAMOUS EPITHELIAL CELL URINE <1 /hpf (0-5); URINE COLOR YELLOW (YELLW/STRAW); URINE LEUKOCYTE ESTERASE NEG (NEG)
[2017-09-23 00:13] VITALS: BP 122/84; PULSE 94; RESP 17; O2SAT 96
[2017-09-23] MEDS: PIPERACIL-TAZO 3.375 GM PREMIX 50 ML IV SCH ×3 (01:52→20:00)
[2017-09-23] MEDS: SODIUM CHLOR 0.9% 1000 ML INJ 1,000 ML IV SCH (04:15)
[2017-09-23] MEDS: hydrALAZINE HCL 25 MG TAB PO SCH ×3 (05:50→21:57)
[2017-09-23 05:57] VITALS: BP 128/80; PULSE 92; RESP 16; TEMP 97.7; O2SAT 100
[2017-09-23 07:29] LABS: AUTOMATED NEUTROPHIL # 2.7 TH/MM3 (1.8-7.7); BASOPHIL % 0.4 % (0.0-2.0); EOSINOPHIL # 0.1 TH/MM3 (0-0.4); EOSINOPHIL % 1.5 % (0.0-4.0); HEMATOCRIT 33.1 % (39.0-51.0); HEMOGLOBIN 11.6 GM/DL (13.0-17.0); LYMPH % 55.3 % (9.0-44.0); LYMPHOCYTE # 4.2 TH/MM3 (1.0-4.8); MEAN CELL VOLUME 84.8 FL (80.0-100.0); MEAN CORPUSCULAR HEMOGLOBIN 29.6 PG (27.0-34.0); MEAN PLATELET VOLUME 8.1 FL (7.0-11.0); MONO % 7.7 % (0.0-8.0); MONOCYTE # 0.6 TH/MM3 (0-0.9); NEUT % 35.1 % (16.0-70.0); PLATELET COUNT 214 TH/MM3 (150-450); RED BLOOD COUNT 3.91 MIL/MM3 (4.50-5.90); RED CELL DISTRIBUTION WIDTH 17.4 % (11.6-17.2); WHITE BLOOD COUNT 7.6 TH/MM3 (4.0-11.0)
[2017-09-23 07:53] LABS: ALBUMIN 2.8 GM/DL (3.4-5.0); AST (GOT) 65 U/L (15-37); BICARBONATE 23.6 MEQ/L (21.0-32.0); BLOOD UREA NITROGEN 13 MG/DL (7-18); CALCIUM 8.3 MG/DL (8.5-10.1); CHLORIDE 107 MEQ/L (98-107); CREATININE 0.92 MG/DL (0.60-1.30); GLOMERULAR FILTRATION RATE 84 ML/MIN (>89); GLUCOSE,RANDOM 79 MG/DL (74-106); SODIUM (NA) 139 MEQ/L (136-145)
[2017-09-23 07:54] LABS: ALT (GPT) 77 U/L (12-78)
[2017-09-23 07:57] LABS: ALKALINE PHOSPHATASE 208 U/L (45-117); TOTAL BILIRUBIN ADULT 0.4 MG/DL (0.2-1.0); TOTAL PROTEIN 6.7 GM/DL (6.4-8.2)
--- NOTE | 2017-09-23 08:56 | HHI.PYPN ---
Subjective Remarks Patient seen in his room with nurse Chanel, chart review, patient discussed with nurse, patient compliant medications. Patient calm cooperative no behavioral problems does denies suicidality homicidality voices at this time. Review of Systems Except as stated in HPI: all other systems reviewed are Neg Mental Status Examination Appearance: Appropriate Consciousness: Alert Orientation: Person, Place (at least) Motor Activity: Other (continues to display a resting tremor. No other motoric abnormalities noted.) Speech: Unremarkable Language: Adequate Fund of Knowledge: Adequate Attention and Concentration: Inadequate Memory: Unremarkable Mood: Appropriate, Other ("excellent") Affect: Appropriate, Euthymic Thought Process & Associations: Tangential Thought Content: Bizarre thinking, Hallucinations, Delusional Hallucination Type: Auditory Delusion Type: Bizarre, Paranoid, Other (amish) Suicidal Ideation: No Suicidal Plan: No Suicidal Intention: No Homicidal Ideation: No Homicidal Plan: No Homicidal Intention: No Insight: Poor Judgment: Poor Results Labs Test 09/22/17 17:10 09/22/17 17:30 09/23/17 06:23 White Blood Count 14.3 TH/MM3 7.6 TH/MM3 Red Blood Count 4.12 MIL/MM3 3.91 MIL/MM3 Hemoglobin 12.3 GM/DL 11.6 GM/DL Hematocrit 34.8 % 33.1 % Mean Corpuscular Volume 84.5 FL 84.8 FL Mean Corpuscular Hemoglobin 29.8 PG 29.6 PG Mean Corpuscular Hemoglobin Concent 35.3 % 35.0 % Red Cell Distribution Width 17.0 % 17.4 % Platelet Count 227 TH/MM3 214 TH/MM3 Mean Platelet Volume 7.8 FL 8.1 FL Neutrophils (%) (Auto) 36.9 % 35.1 % Lymphocytes (%) (Auto) 55.2 % 55.3 % Monocytes (%) (Auto) 6.8 % 7.7 % Eosinophils (%) (Auto) 0.5 % 1.5 % Basophils (%) (Auto) 0.6 % 0.4 % Neutrophils # (Auto) 5.3 TH/MM3 2.7 TH/MM3 Lymphocytes # (Auto) 7.9 TH/MM3 4.2 TH/MM3 Monocytes # (Auto) 1.0 TH/MM3 0.6 TH/MM3 Eosinophils # (Auto) 0.1 TH/MM3 0.1 TH/MM3 Basophils # (Auto) 0.1 TH/MM3 0.0 TH/MM3 CBC Comment AUTO DIFF AUTO DIFF Differential Total Cells Counted 100 Neutrophils % (Manual) 45 % Lymphocytes % 52 % Monocytes % 3 % Neutrophils # (Manual) 6.4 TH/MM3 Differential Comment FINAL DIFF MANUAL Platelet Estimate NORMAL Platelet Morphology Comment NORMAL Ovalocytes 1+ Blood Urea Nitrogen 20 MG/DL 13 MG/DL Creatinine 0.86 MG/DL 0.92 MG/DL Random Glucose 107 MG/DL 79 MG/DL Total Protein 7.2 GM/DL 6.7 GM/DL Albumin 3.1 GM/DL 2.8 GM/DL Calcium Level 8.5 MG/DL 8.3 MG/DL Alkaline Phosphatase 241 U/L 208 U/L Aspartate Amino Transf (AST/SGOT) 87 U/L 65 U/L Alanine Aminotransferase (ALT/SGPT) 92 U/L 77 U/L Total Bilirubin 0.5 MG/DL 0.4 MG/DL Sodium Level 131 MEQ/L 139 MEQ/L Potassium Level 4.0 MEQ/L 3.3 MEQ/L Chloride Level 100 MEQ/L 107 MEQ/L Carbon Dioxide Level 20.1 MEQ/L 23.6 MEQ/L Anion Gap 11 MEQ/L 8 MEQ/L Estimat Glomerular Filtration Rate 91 ML/MIN 84 ML/MIN Lactic Acid Level 2.4 mmol/L Urine Color YELLOW Urine Turbidity CLEAR Urine pH 6.0 Urine Specific [place] 1.012 Urine Protein TRACE mg/dL Urine Glucose (UA) NEG mg/dL Urine Ketones NEG mg/dL Urine Occult Blood NEG Urine Nitrite NEG Urine Bilirubin NEG Urine Urobilinogen LESS THAN 2.0 MG/DL Urine Leukocyte Esterase NEG Urine WBC 1 /hpf Urine Squamous Epithelial Cells <1 /hpf Microscopic Urinalysis Comment CULT NOT INDICATED Date/Time Source Procedure Growth Status 09/22/17 17:15 Blood Peripheral Aerobic Blood Culture Pending Received 09/22/17 17:15 Blood Peripheral Anaerobic Blood Culture Pending Received 09/22/17 20:35 Nasal Aspirate Influenza Types A,B Antigen (JOSHUA) - Final NEGATIVE FOR FLU A AND B ANTIGEN.... Complete Vitals/IOs Vital Signs Date Time Temp Pulse Resp B/P (MAP) Pulse Ox O2 Delivery O2 Flow Rate FiO2 09/23/17 05:57 97.7 92 16 128/80 (96) 100 Intake and Output 3/06/0209/23/17 09/24/17 08:00 16:00 00:00 Intake Total 360 ml Balance 360 ml Assessment & Plan Problem List: (1) Psychotic disorder ICD Codes: F29 - Unspecified psychosis not due to a substance or known physiological condition Status: Acute Assessment & Plan Estimated LOS: days patient showing some mild improvement in behavior and attitude, is calm pleasant compliant with medications. Justification for Cont. Inpt. At this time patient will decompensate and placed in the lower level of care Discharge Planning To be determined Problem Qualifiers (1) Psychotic disorder: Qualified Codes: F28 - Other psychotic disorder not due to a substance or known physiological condition Nixon Cole MD Sep 23, 2017 08:56
[2017-09-23] MEDS: HALOPERIDOL LACTATE 5 MG/ML AMP IM SCH ×2 (09:00→21:00)
[2017-09-23] MEDS: NIFEdipine 90 MG SUSTAINED RELEASE TAB PO SCH (09:00)
[2017-09-23 09:32] LABS: OVALOCYTES 1+ (NORMAL)
[2017-09-23] MEDS: HALOPERIDOL 10 MG TAB PO SCH ×2 (09:38→21:00)
[2017-09-23] MEDS: VANCOMYCIN INJ 1,000 MG in SODIUM CHLOR 0.9% 250 ML INJ 250 ML IV SCH ×2 (09:38→21:00)
[2017-09-23] MEDS: BENZTROPINE MESYLATE 1 MG TAB PO SCH ×2 (09:38→21:57)
[2017-09-23] MEDS: NYSTATIN SUSP 500,000 U/5 ML CUP SWISH-SWAL SCH ×4 (09:38→21:57)
[2017-09-23] MEDS: ACETAMINOPHEN 325 MG TAB PO PRN ×2 (09:49→19:22)
--- NOTE | 2017-09-23 09:50 | HHI.IDPN ---
Subjective Subjective Remarks RECONSULT ID FOR NEW FEVER 61 yo male with HIV disease, has been in the hospital for a while Has been off HIV meds, states he had a lot of side effects and stopped his meds , and does not want to be back on them Has had problem with rash which has improved [facility] Last CD4 count July 2017 700+ Reconsult for fevers Had elevated lactic acid, and tachycardic Cultures obtained On IVF and started on broad spectrum Abx Currently afebrile, feels good No resp complaints No GI or complaints No rash or itching Influenza Ag negative UA ok CXR ok LFTs abnormal, but stable Hep C (+) Antibiotics Current Medications Medications (Trade) Dose Ordered Sig/Zina Route Start Time Stop Time Status Last Admin (Ativan) 1 mg Q6H PRN PO 06/12/17 15:45 Future hold 07/25/17 20:55 (Ativan Inj) 1 mg Q6H PRN IM 06/12/17 15:45 Future hold (Tylenol) 650 mg Q4H PRN PO 06/12/17 15:45 Future hold 09/20/17 07:23 (Milk Of Magnesia Liq) 30 ml DAILY PRN PO 06/12/17 15:45 Future hold (Mag-Al Plus Susp Liq) 30 ml Q6H PRN PO 06/12/17 15:45 Future hold (Pill Splitter) 1 ea UNSCH PRN OTHER 06/12/17 16:30 (Toprol Xl) 100 mg DAILY PO 06/16/17 09:00 Future Hold 07/26/17 10:47 (Procardia Xl) 90 mg DAILY PO 06/20/17 09:00 Future hold 09/22/17 08:11 (Apresoline) 25 mg Q8HR PO 06/21/17 22:00 Future hold 09/23/17 05:50 (Cogentin) 1 mg Q12H PRN PO 07/16/17 11:45 Future hold (Cogentin Inj) 1 mg Q12H PRN IM 07/16/17 11:45 Future hold (Prinivil) 5 mg DAILY PO 07/26/17 09:00 Future Hold 09/06/17 09:34 (Haldol Inj) 5 mg BID IM 08/06/17 21:00 (Haldol) 10 mg BID PO 08/09/17 21:00 3/11/18 09:38 (Mycostatin Liq) 5 ml QID SWISH-SWAL 08/11/17 13:00 09/23/17 09:38 (Catapres) 0.1 mg Q6H PRN PO 08/21/17 19:30 09/04/17 18:04 (Cogentin) 1 mg Q12HR PO 09/04/17 21:00 09/23/17 09:38 (Oscal-D 250-125) 500 mg BID@1300,2100 PO 09/05/17 21:00 09/22/17 20:52 (Motrin) 400 mg Q6H PRN PO 09/18/17 09:00 09/18/17 16:34 (Chloraseptic [facility]) 2 spray Q2H PRN OROPHARYNG 09/18/17 09:00 09/20/17 08:33 (Benadryl) 50 mg Q6H PRN PO 09/22/17 11:30 09/22/17 11:30 Vancomycin HCl 1000 mg/Sodium Chloride 250 ml @ 250 mls/hr Q12H IV 09/22/17 21:00 09/23/17 09:38 Piperacillin Sod/ Tazobactam Sod 50 ml @ 100 mls/hr Q6H IV 09/22/17 20:00 09/23/17 08:00 Sodium Chloride 1,000 ml @ 100 mls/hr Q10H IV 09/22/17 18:15 09/23/17 04:15 Pharmacy Profile Note 0 ml @ 0 mls/hr UNSCH PRN OTHER 09/22/17 18:15 Miscellaneous Information SPECIFIC LAB TO BE ... ONCE ONCE .XX 09/24/17 08:45 09/24/17 08:46 Lines PIV Past Medical History HTN Hep C HIV Bipolar disorder Schizoaffective disorder Schizophrenia Absent temporal lobe syndrome Past Surgical History Right ankle surgery secondary to bone spurs Allergies: Coded Allergies: Sulfa (Sulfonamide Antibiotics) (Unverified Allergy, Severe, Hives, ) emtricitabine (Verified Allergy, Severe, Skin Discoloration, 09/06/17) severe skin redness rilpivirine (Verified Allergy, Severe, Skin Discoloration, 09/06/17) severe skin redness tenofovir (Verified Allergy, Severe, Skin Discoloration, 09/06/17) severe skin redness Objective . Vital Signs Date Time Temp Pulse Resp B/P (MAP) Pulse Ox O2 Delivery O2 Flow Rate FiO2 09/23/17 05:57 97.7 92 16 128/80 (96) 100 09/23/17 00:13 94 17 122/84 (97) 96 09/22/17 16:43 100.7 120 18 146/80 (102) 97 09/22/17 14:02 99.3 09/22/17 11:59 97.9 91 18 135/86 (102) 100 09/23/17 09/23/17 09/24/17 15:00 23:00 07:00 Intake Total 360 ml Balance 360 ml Intake Oral 360 ml . Laboratory Tests Test 09/22/17 17:10 09/23/17 06:23 White Blood Count 14.3 TH/MM3 7.6 TH/MM3 Red Blood Count 4.12 MIL/MM3 3.91 MIL/MM3 Hemoglobin 12.3 GM/DL 11.6 GM/DL Hematocrit 34.8 % 33.1 % Mean Corpuscular Volume 84.5 FL 84.8 FL Mean Corpuscular Hemoglobin 29.8 PG 29.6 PG Mean Corpuscular Hemoglobin Concent 35.3 % 35.0 % Red Cell Distribution Width 17.0 % 17.4 % Platelet Count 227 TH/MM3 214 TH/MM3 Mean Platelet Volume 7.8 FL 8.1 FL Neutrophils (%) (Auto) 36.9 % 35.1 % Lymphocytes (%) (Auto) 55.2 % 55.3 % Monocytes (%) (Auto) 6.8 % 7.7 % Eosinophils (%) (Auto) 0.5 % 1.5 % Basophils (%) (Auto) 0.6 % 0.4 % Neutrophils # (Auto) 5.3 TH/MM3 2.7 TH/MM3 Lymphocytes # (Auto) 7.9 TH/MM3 4.2 TH/MM3 Monocytes # (Auto) 1.0 TH/MM3 0.6 TH/MM3 Eosinophils # (Auto) 0.1 TH/MM3 0.1 TH/MM3 Basophils # (Auto) 0.1 TH/MM3 0.0 TH/MM3 CBC Comment AUTO DIFF AUTO DIFF Differential Total Cells Counted 100 Neutrophils % (Manual) 45 % Lymphocytes % 52 % Monocytes % 3 % Neutrophils # (Manual) 6.4 TH/MM3 Differential Comment FINAL DIFF MANUAL AUTO DIFF CONFIRMED Platelet Estimate NORMAL Platelet Morphology Comment NORMAL Ovalocytes 1+ 1+ Laboratory Tests Test 09/22/17 17:10 09/23/17 06:23 Blood Urea Nitrogen 20 MG/DL 13 MG/DL Creatinine 0.86 MG/DL 0.92 MG/DL Random Glucose 107 MG/DL 79 MG/DL Total Protein 7.2 GM/DL 6.7 GM/DL Albumin 3.1 GM/DL 2.8 GM/DL Calcium Level 8.5 MG/DL 8.3 MG/DL Alkaline Phosphatase 241 U/L 208 U/L Aspartate Amino Transf (AST/SGOT) 87 U/L 65 U/L Alanine Aminotransferase (ALT/SGPT) 92 U/L 77 U/L Total Bilirubin 0.5 MG/DL 0.4 MG/DL Sodium Level 131 MEQ/L 139 MEQ/L Potassium Level 4.0 MEQ/L 3.3 MEQ/L Chloride Level 100 MEQ/L 107 MEQ/L Carbon Dioxide Level 20.1 MEQ/L 23.6 MEQ/L Anion Gap 11 MEQ/L 8 MEQ/L Estimat Glomerular Filtration Rate 91 ML/MIN 84 ML/MIN Lactic Acid Level 2.4 mmol/L Microbiology Date/Time Source Procedure Growth Status 09/22/17 17:15 Blood Peripheral Aerobic Blood Culture Pending Received 09/22/17 17:15 Blood Peripheral Anaerobic Blood Culture Pending Received 09/22/17 17:10 Blood Peripheral Aerobic Blood Culture Pending Received 09/22/17 17:10 Blood Peripheral Anaerobic Blood Culture Pending Received 09/22/17 20:35 Nasal Aspirate Influenza Types A,B Antigen (JOSHUA) - Final NEGATIVE FOR FLU A AND B ANTIGEN.... Complete Imaging Chest X-Ray 09/22/17 0000 Signed Impressions: Service Date/Time: Friday, September 22, 2017 17:40 - CONCLUSION: 1. No active disease. Wesly Chapin MD Brain MRI 08/23/17 0000 Signed Impressions: Service Date/Time: August 15:16 - CONCLUSION: 1. 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 2. No findings to indicate acute cortical infarction are seen. 3. Scattered areas of increased T2 signal in the white matter most consistent with microvascular ischemic demyelinative change. 4. No abnormal enhancement identified within the brain parenchyma. Figueroa Nina MD Chest CT 08/08/17 0000 Signed Impressions: Service Date/Time: Tuesday, August 08, 2017 20:14 - CONCLUSION: 1. No acute findings. No adenopathy or effusion. Wesly Chapin MD Abdomen/Pelvis CT 08/08/17 0000 Signed Impressions: Service Date/Time: Tuesday, August 08, 2017 20:14 - CONCLUSION: 1. No acute findings. No adenopathy. Mild constipation. Wesly Chapin MD Liver Ultrasound 07/26/17 0000 Signed Impressions: Service Date/Time: July 16:09 - CONCLUSION: 1. Unremarkable abdominal ultrasound examination. Randall Patten MD Head CT 06/20/17 0000 Signed Impressions: Service Date/Time: June 03:11 - CONCLUSION: 1. No acute hemorrhage or mass effect. 2. Areas of encephalomalacia in the left temporal and parietal lobes. 3. Mild to moderate atrophic change. Simone Wolf MD Renal Ultrasound 06/19/17 0000 Signed Impressions: Service Date/Time: Monday, June 19, 2017 16:47 - CONCLUSION: 1. Elevated velocities in the proximal and mid right renal artery. 2. Nonvisualization of the left mid renal artery with elevated velocity in the distal portion of the renal artery. 3. Echogenic kidneys characteristic of medical renal disease. There is no hydronephrosis. Simone Wolf MD Physical Exam CONSTITUTIONAL/GENERAL: This is an adequately nourished patient, in no apparent distress. Pt appears well SKIN: No jaundice, There is peristent milld diffuse erythema involving BLE and BUE and torso Not much on the face EYES: Pupils equal and round and reactive. Non icteric ENT: Hearing grossly normal. Nose without bleeding or purulent drainage. Throat without visible erythema, exudates, masses, or lesions. No enanthema noted RESPIRATORY/CHEST: , unlabored respirations. MUSCULOSKELETAL: Extremities without clubbing, cyanosis, or edema. NEUROLOGICAL: Awake and alert. Motor and sensory grossly within normal limits. Follows commands. Clear speech . Moves all extremities. PSYCHIATRIC: No obvious anxiety/depression. no apparent hallucinations Assessment & Plan Remarks IMPRESSION New fever, exam non-localizing - ?viral syndrome HIV, CD4 Jul 2017 700+ Hep C PLAN: Follow C/S Stop Abx Follow temps Monitor progress Dr Palacios back tomorrow and will resume ID care Trina Antonio MD Sep 23, 2017 09:50
--- NOTE | 2017-09-23 12:11 | HHI.PR ---
Subjective Remarks Pt seen and examined. Reports he is feeling much better. Denies cough, shortness of breath, sore throat, chills, abdominal pain, nausea, vomiting, or diarrhea. Appetite is good. Rash has resolved. Reiterates that he does not want to take antiretrovirals for his HIV. Objective Vitals Vital Signs Date Time Temp Pulse Resp B/P (MAP) Pulse Ox O2 Delivery O2 Flow Rate FiO2 09/23/17 05:57 97.7 92 16 128/80 (96) 100 09/23/17 00:13 94 17 122/84 (97) 96 09/22/17 16:43 100.7 120 18 146/80 (102) 97 09/22/17 14:02 99.3 09/22/17 11:59 97.9 91 18 135/86 (102) 100 I/O 09/22/17 09/22/17 09/22/17 09/23/17 09/23/17 09/23/17 07:00 15:00 23:00 07:00 15:00 23:00 Intake Total 580 ml 600 ml Balance 580 ml 600 ml Intake Oral 480 ml 600 ml IV Total 100 ml # Voids 1 2 Result Diagram: 09/23/1762209/23/1723 Objective Remarks GENERAL: WN, WD male laying comfortably in bed in NAD. SKIN: Warm and dry without rash. HEENT: Pupils equal and round. MMM. No tonsillar hypertrophy or pharyngeal exudate. NECK: Supple no tender LAD or JVD. HEART: RRR no m/r/g. LUNGS: CTAB without wheezes or crackles. ABDOMEN: Soft, NT, ND. EXTREMITIES: No LE edema or calf tenderness. NEURO: Awake and alert. PSYCH: Appropriate mood and affect. A/P Problem List: (1) Sepsis ICD Code: A41.9 - Sepsis, unspecified organism (2) Viral rash ICD Code: B09 - Unspecified viral infection characterized by skin and mucous membrane lesions Status: Resolved (3) HIV (human immunodeficiency virus infection) ICD Code: Z21 - Asymptomatic human immunodeficiency virus [HIV] infection status Status: Chronic (4) Hypertension ICD Code: I10 - Essential (primary) hypertension Status: Chronic Assessment and Plan 61 year old female with HIV admitted to the psych unit and transferred to med psych on 09/22 for fever and sepsis. 1. Sepsis - Resolved 3/11 - Fever of 100.7 and HR 120 on 09/22 and patient apparently lightheaded and developed a rash - Hospitalist was stat consulted for evaluation in light of patient's currently untreated HIV - Stat labs showed a new leukocytosis with WBC 14.3 and lactic acid 2.4 and broad spectrum vanc and Zosyn were started - U/A unremarkable - CXR unremarkable - Influenza unremarkable - Blood cultures NG x 1 day - ID was consulted and discontinued abx for suspected viral syndrome - Monitor for continued fevers or development of new symptoms 2. HIV - Last CD4 count in July >700 - HAART previously restarted but with adverse reaction to Odefsey so it was stopped - Now patient refusing any more antiretroviral treatment 3. HCV - Avoid hepatotoxic agents - F/U with GI as outpatient 4. Bipolar disorder, schizophenira - Managed per psych 5. HTN - Controlled - Continue hydralazine and Procardia - Clonidine PRN 6. DVT prophylaxis - Ambulatory Problem Qualifiers (1) Hypertension: Qualified Codes: I10 - Essential (primary) hypertension Minnie Tran MD Sep 23, 2017 12:11
[2017-09-23] MEDS ORDERED: POTASSIUM CHLORIDE 20 MEQ CONTROLLED RELEASE TAB PO ONE (12:30)
[2017-09-23] MEDS: CALCIUM/VITAMIN D 250 MG/125 U TAB PO SCH ×2 (13:00→22:00)
[2017-09-23 16:06] VITALS: BP 150/79; PULSE 123; RESP 17; TEMP 97.9; O2SAT 99
[2017-09-23 19:15] VITALS: BP 140/81; PULSE 124; RESP 22; TEMP 101; O2SAT 99
[2017-09-23] MEDS: POTASSIUM CHLORIDE INJ 10 MEQ in SODIUM CHLOR 0.9% 1000 ML INJ 1,000 ML IV SCH (20:00)
[2017-09-23 23:47] VITALS: PULSE 94; RESP 20; TEMP 97.7; O2SAT 97
[2017-09-24] MEDS: PIPERACIL-TAZO 3.375 GM PREMIX 50 ML IV SCH ×4 (01:58→21:05)
[2017-09-24 05:08] VITALS: BP 122/80; PULSE 89; RESP 17; TEMP 97.7; O2SAT 99
[2017-09-24] MEDS: hydrALAZINE HCL 25 MG TAB PO SCH (05:50)
[2017-09-24] MEDS: POTASSIUM CHLORIDE INJ 10 MEQ in SODIUM CHLOR 0.9% 1000 ML INJ 1,000 ML IV SCH ×2 (06:03→14:22)
[2017-09-24 07:55] LABS: AUTOMATED NEUTROPHIL # 2.2 TH/MM3 (1.8-7.7); BASOPHIL % 0.4 % (0.0-2.0); EOSINOPHIL # 0.2 TH/MM3 (0-0.4); EOSINOPHIL % 3.2 % (0.0-4.0); HEMATOCRIT 32.3 % (39.0-51.0); HEMOGLOBIN 11.5 GM/DL (13.0-17.0); LYMPH % 59.9 % (9.0-44.0); LYMPHOCYTE # 4.7 TH/MM3 (1.0-4.8); MEAN CELL VOLUME 85.3 FL (80.0-100.0); MEAN CORPUSCULAR HEMOGLOBIN 30.4 PG (27.0-34.0); MEAN CORPUSCULAR HGB CONC 35.7 % (32.0-36.0); MEAN PLATELET VOLUME 7.8 FL (7.0-11.0); MONOCYTE # 0.6 TH/MM3 (0-0.9); NEUT % 28.5 % (16.0-70.0); PLATELET COUNT 211 TH/MM3 (150-450); RED BLOOD COUNT 3.79 MIL/MM3 (4.50-5.90); WHITE BLOOD COUNT 7.9 TH/MM3 (4.0-11.0)
[2017-09-24 08:22] LABS: BICARBONATE 23.6 MEQ/L (21.0-32.0); CALCIUM 8.2 MG/DL (8.5-10.1); CREATININE 0.85 MG/DL (0.60-1.30)
[2017-09-24] MEDS ORDERED: PHARMACY ORDERED LAB ONE (08:45)
[2017-09-24] MEDS: BENZTROPINE MESYLATE 1 MG TAB PO SCH ×2 (09:00→21:05)
[2017-09-24] MEDS: NYSTATIN SUSP 500,000 U/5 ML CUP SWISH-SWAL SCH ×4 (09:00→21:08)
[2017-09-24] MEDS: NIFEdipine 90 MG SUSTAINED RELEASE TAB PO SCH (09:00)
[2017-09-24] MEDS: HALOPERIDOL LACTATE 5 MG/ML AMP IM SCH ×2 (09:00→21:00)
[2017-09-24] MEDS: VANCOMYCIN INJ 1,000 MG in SODIUM CHLOR 0.9% 250 ML INJ 250 ML IV SCH ×2 (09:00→21:08)
[2017-09-24] MEDS: HALOPERIDOL 10 MG TAB PO SCH ×2 (09:00→21:05)
--- NOTE | 2017-09-24 12:53 | HHI.PR ---
Subjective Remarks Pt seen and examined. Pt reports he is feeling very well. Denies any current symptoms including cough, SOB, chest pain, sore throat, rash, abdominal pain, N/ V, dysuria. Febrile overnight with Tmax 101. Pt reports he was shivering uncontrollably and thought it was "the end." Feeling much better today. Overnight, broad-spectrum abx were restarted. Objective Vitals Vital Signs Date Time Temp Pulse Resp B/P (MAP) Pulse Ox O2 Delivery O2 Flow Rate FiO2 09/24/17 05:08 97.7 89 17 122/80 (94) 99 09/23/17 23:47 97.7 94 20 97 09/23/17 19:15 101.0 124 22 140/81 (100) 99 09/23/17 16:06 97.9 123 17 150/79 (102) 99 I/O 09/23/17 09/23/17 09/23/17 09/24/17 09/24/17 09/24/17 07:00 15:00 23:00 07:00 15:00 23:00 Intake Total 600 ml 3976 ml 240 ml Balance 600 ml 3976 ml 240 ml Intake Oral 600 ml 1680 ml 240 ml IV Total 2296 ml # Voids 2 3 Result Diagram: 09/24/17 0646 09/24/17 0646 Imaging Chest X-Ray 09/22/17 0000 Signed Impressions: Service Date/Time: Friday, September 22, 2017 17:40 - CONCLUSION: 1. No active disease. Wesly Chapin MD Objective Remarks GENERAL: WN, WD male sitting up in NAD. SKIN: Warm and dry without rash. HEENT: Pupils equal and round. MMM. No tonsillar hypertrophy or pharyngeal exudate. NECK: Supple no tender LAD or JVD. HEART: RRR no m/r/g. LUNGS: CTAB without wheezes or crackles. ABDOMEN: Soft, NT, ND. EXTREMITIES: No LE edema or calf tenderness. NEURO: Awake and alert. PSYCH: Appropriate mood and affect. A/P Problem List: (1) Fever ICD Code: R50.9 - Fever, unspecified Status: Acute (2) HIV (human immunodeficiency virus infection) ICD Code: Z21 - Asymptomatic human immunodeficiency virus [HIV] infection status Status: Chronic (3) Hypertension ICD Code: I10 - Essential (primary) hypertension Status: Chronic (4) Psychotic disorder ICD Code: F29 - Unspecified psychosis not due to a substance or known physiological condition Status: Acute Assessment and Plan 61 year old female with HIV admitted to the psych unit and transferred to med psych on 09/22 for fever and sepsis. 1. Fever - Fever of 100.7 and HR 120 on 09/22 and patient apparently lightheaded and developed a rash * Hospitalist was stat consulted for evaluation in light of patient's currently untreated HIV * Stat labs showed a new leukocytosis with WBC 14.3 and lactic acid 2.4 and broad spectrum vanc and Zosyn were started * U/A unremarkable * CXR unremarkable * Influenza negative * Blood cultures NG x 2 days * ID was consulted and discontinued abx for suspected viral syndrome - Overnight patient redeveloped a fever of 101 and vanc and Zosyn were restarted * No leukocytosis this morning * Lactic acid to be added to blood in lab * No clinical evidence of any infection * ID following, will await their evaluation - Monitor for continued fevers or development of new symptoms 2. HIV - Last CD4 count in July >700 - Pt was on Odefsey as an outpatient and when it was continued in the hospital it was compounded by pharmacy with a different salt and the patient subsequently had an allergic reaction to it thus flagging further antiretroviral options - Prior to this hospitalization his viral load was undetectable and now it is extremely high as of July - Apparently he wants to be back on Odefsey; will defer to ID 3. HCV - Avoid hepatotoxic agents - F/U with GI as outpatient 4. Bipolar disorder, schizophenira - Managed per psych 5. HTN - Controlled - Continue Procardia - Restart Toprol since some elevated pressures and tachycardic - Clonidine PRN 6. DVT prophylaxis - Ambulatory Problem Qualifiers (1) Hypertension: Qualified Codes: I10 - Essential (primary) hypertension (2) Psychotic disorder: Qualified Codes: F28 - Other psychotic disorder not due to a substance or known physiological condition Minnie Tran MD Sep 24, 2017 12:53
[2017-09-24] MEDS: CALCIUM/VITAMIN D 250 MG/125 U TAB PO SCH ×2 (13:00→21:08)
[2017-09-24 13:05] VITALS: BP 133/73; PULSE 96; RESP 18; TEMP 98.3; O2SAT 98
--- NOTE | 2017-09-24 14:57 | HHI.IDPN ---
Subjective Subjective Remarks Pt develppped high grade fever over w/e started on zosyn, vanco that were stoppped and later restarted after he spiked fever again He also has rash denies other symptoms and he feels better today CXR, UA and bloodclx are negative He was positive for T-cell Receptor Gamma Gene Rearrangement - that was dw Dr Vo. HIghly suspeciious for malignancy Antibiotics Current Medications Medications (Trade) Dose Ordered Sig/Zina Route Start Time Stop Time Status Last Admin (Ativan) 1 mg Q6H PRN PO 06/12/17 15:45 Future hold 07/25/17 20:55 (Ativan Inj) 1 mg Q6H PRN IM 06/12/17 15:45 Future hold (Tylenol) 650 mg Q4H PRN PO 06/12/17 15:45 Future hold 09/20/17 07:23 (Milk Of Magnesia Liq) 30 ml DAILY PRN PO 06/12/17 15:45 Future hold (Mag-Al Plus Susp Liq) 30 ml Q6H PRN PO 06/12/17 15:45 Future hold (Pill Splitter) 1 ea UNSCH PRN OTHER 06/12/17 16:30 (Toprol Xl) 100 mg DAILY PO 06/16/17 09:00 Future Hold 07/26/17 10:47 (Procardia Xl) 90 mg DAILY PO 06/20/17 09:00 Future hold 09/22/17 08:11 (Apresoline) 25 mg Q8HR PO 06/21/17 22:00 Future hold 09/23/17 05:50 (Cogentin) 1 mg Q12H PRN PO 07/16/17 11:45 Future hold (Cogentin Inj) 1 mg Q12H PRN IM 07/16/17 11:45 Future hold (Prinivil) 5 mg DAILY PO 07/26/17 09:00 Future Hold 09/06/17 09:34 (Haldol Inj) 5 mg BID IM 08/06/17 21:00 (Haldol) 10 mg BID PO 08/09/17 21:00 09/23/17 09:38 (Mycostatin Liq) 5 ml QID SWISH-SWAL 08/11/17 13:00 09/23/17 09:38 (Catapres) 0.1 mg Q6H PRN PO 08/21/17 19:30 09/04/17 18:04 (Cogentin) 1 mg Q12HR PO 09/04/17 21:00 09/23/17 09:38 (Oscal-D 250-125) 500 mg BID@1300,2100 PO 09/05/17 21:00 09/22/17 20:52 (Motrin) 400 mg Q6H PRN PO 09/18/17 09:00 09/18/17 16:34 (Chloraseptic [place]) 2 spray Q2H PRN OROPHARYNG 09/18/17 09:00 09/20/17 08:33 (Benadryl) 50 mg Q6H PRN PO 09/22/17 11:30 09/22/17 11:30 Vancomycin HCl 1000 mg/Sodium Chloride 250 ml @ 250 mls/hr Q12H IV 09/22/17 21:00 09/23/17 09:38 Piperacillin Sod/ Tazobactam Sod 50 ml @ 100 mls/hr Q6H IV 09/22/17 20:00 09/23/17 08:00 Sodium Chloride 1,000 ml @ 100 mls/hr Q10H IV 09/22/17 18:15 09/23/17 04:15 Pharmacy Profile Note 0 ml @ 0 mls/hr UNSCH PRN OTHER 09/22/17 18:15 Miscellaneous Information SPECIFIC LAB TO BE HUA... ONCE ONCE .XX 09/24/17 08:45 09/24/17 08:46 Lines PIV Past Medical History HTN Hep C HIV Bipolar disorder Schizoaffective disorder Schizophrenia Absent temporal lobe syndrome Past Surgical History Right ankle surgery secondary to bone spurs Allergies: Coded Allergies: Sulfa (Sulfonamide Antibiotics) (Unverified Allergy, Severe, Hives, ) emtricitabine (Verified Allergy, Severe, Skin Discoloration, 09/06/17) severe skin redness rilpivirine (Verified Allergy, Severe, Skin Discoloration, 09/06/17) severe skin redness tenofovir (Verified Allergy, Severe, Skin Discoloration, 09/06/17) severe skin redness Objective . Vital Signs Date Time Temp Pulse Resp B/P (MAP) Pulse Ox O2 Delivery O2 Flow Rate FiO2 09/24/17 13:05 98.3 96 18 133/73 (93) 98 09/24/17 05:08 97.7 89 17 122/80 (94) 99 09/23/17 23:47 97.7 94 20 97 09/23/17 19:15 101.0 124 22 140/81 (100) 99 09/23/17 16:06 97.9 123 17 150/79 (102) 99 09/24/17 09/24/17 09/25/17 15:00 23:00 07:00 Intake Total 480 ml Balance 480 ml Intake Oral 480 ml . Laboratory Tests Test 09/22/17 17:10 09/23/17 06:23 09/24/17 06:46 White Blood Count 14.3 TH/MM3 7.6 TH/MM3 7.9 TH/MM3 Red Blood Count 4.12 MIL/MM3 3.91 MIL/MM3 3.79 MIL/MM3 Hemoglobin 12.3 GM/DL 11.6 GM/DL 11.5 GM/DL Hematocrit 34.8 % 33.1 % 32.3 % Mean Corpuscular Volume 84.5 FL 84.8 FL 85.3 FL Mean Corpuscular Hemoglobin 29.8 PG 29.6 PG 30.4 PG Mean Corpuscular Hemoglobin Concent 35.3 % 35.0 % 35.7 % Red Cell Distribution Width 17.0 % 17.4 % 17.0 % Platelet Count 227 TH/MM3 214 TH/MM3 211 TH/MM3 Mean Platelet Volume 7.8 FL 8.1 FL 7.8 FL Neutrophils (%) (Auto) 36.9 % 35.1 % 28.5 % Lymphocytes (%) (Auto) 55.2 % 55.3 % 59.9 % Monocytes (%) (Auto) 6.8 % 7.7 % 8.0 % Eosinophils (%) (Auto) 0.5 % 1.5 % 3.2 % Basophils (%) (Auto) 0.6 % 0.4 % 0.4 % Neutrophils # (Auto) 5.3 TH/MM3 2.7 TH/MM3 2.2 TH/MM3 Lymphocytes # (Auto) 7.9 TH/MM3 4.2 TH/MM3 4.7 TH/MM3 Monocytes # (Auto) 1.0 TH/MM3 0.6 TH/MM3 0.6 TH/MM3 Eosinophils # (Auto) 0.1 TH/MM3 0.1 TH/MM3 0.2 TH/MM3 Basophils # (Auto) 0.1 TH/MM3 0.0 TH/MM3 0.0 TH/MM3 CBC Comment AUTO DIFF AUTO DIFF AUTO DIFF Differential Total Cells Counted 100 Neutrophils % (Manual) 45 % Lymphocytes % 52 % Monocytes % 3 % Neutrophils # (Manual) 6.4 TH/MM3 Differential Comment FINAL DIFF MANUAL AUTO DIFF CONFIRMED AUTO DIFF CONFIRMED Platelet Estimate NORMAL Platelet Morphology Comment NORMAL Ovalocytes 1+ 1+ Laboratory Tests Test 09/22/17 17:10 09/23/17 06:23 09/24/17 06:46 Blood Urea Nitrogen 20 MG/DL 13 MG/DL 8 MG/DL Creatinine 0.86 MG/DL 0.92 MG/DL 0.85 MG/DL Random Glucose 107 MG/DL 79 MG/DL 102 MG/DL Total Protein 7.2 GM/DL 6.7 GM/DL Albumin 3.1 GM/DL 2.8 GM/DL Calcium Level 8.5 MG/DL 8.3 MG/DL 8.2 MG/DL Alkaline Phosphatase 241 U/L 208 U/L Aspartate Amino Transf (AST/SGOT) 87 U/L 65 U/L Alanine Aminotransferase (ALT/SGPT) 92 U/L 77 U/L Total Bilirubin 0.5 MG/DL 0.4 MG/DL Sodium Level 131 MEQ/L 139 MEQ/L 140 MEQ/L Potassium Level 4.0 MEQ/L 3.3 MEQ/L 3.7 MEQ/L Chloride Level 100 MEQ/L 107 MEQ/L 108 MEQ/L Carbon Dioxide Level 20.1 MEQ/L 23.6 MEQ/L 23.6 MEQ/L Anion Gap 11 MEQ/L 8 MEQ/L 8 MEQ/L Estimat Glomerular Filtration Rate 91 ML/MIN 84 ML/MIN 92 ML/MIN Lactic Acid Level 2.4 mmol/L Microbiology Date/Time Source Procedure Growth Status 09/22/17 17:15 Blood Peripheral Aerobic Blood Culture - Preliminary NO GROWTH IN 2 DAYS Resulted 09/22/17 17:15 Blood Peripheral Anaerobic Blood Culture - Preliminary NO GROWTH IN 2 DAYS Resulted 09/22/17 17:10 Blood Peripheral Aerobic Blood Culture - Preliminary NO GROWTH IN 2 DAYS Resulted 09/22/17 17:10 Blood Peripheral Anaerobic Blood Culture - Preliminary NO GROWTH IN 2 DAYS Resulted 09/22/17 20:35 Nasal Aspirate Influenza Types A,B Antigen (JOSHUA) - Final NEGATIVE FOR FLU A AND B ANTIGEN.... Complete Imaging Last Impressions Chest X-Ray 09/22/17 0000 Signed Impressions: Service Date/Time: Friday, September 22, 2017 17:40 - CONCLUSION: 1. No active disease. Wesly Chapin MD Brain MRI 08/23/17 0000 Signed Impressions: Service Date/Time: August 15:16 - CONCLUSION: 1. 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 2. No findings to indicate acute cortical infarction are seen. 3. Scattered areas of increased T2 signal in the white matter most consistent with microvascular ischemic demyelinative change. 4. No abnormal enhancement identified within the brain parenchyma. Figueroa Nina MD Chest CT 08/08/17 0000 Signed Impressions: Service Date/Time: Tuesday, August 08, 2017 20:14 - CONCLUSION: 1. No acute findings. No adenopathy or effusion. Wesly Chapin MD Abdomen/Pelvis CT 08/08/17 0000 Signed Impressions: Service Date/Time: Tuesday, August 08, 2017 20:14 - CONCLUSION: 1. No acute findings. No adenopathy. Mild constipation. Wesly Chapin MD Liver Ultrasound 07/26/17 0000 Signed Impressions: Service Date/Time: July 16:09 - CONCLUSION: 1. Unremarkable abdominal ultrasound examination. Randall Patten MD Head CT 06/20/17 0000 Signed Impressions: Service Date/Time: June 03:11 - CONCLUSION: 1. No acute hemorrhage or mass effect. 2. Areas of encephalomalacia in the left temporal and parietal lobes. 3. Mild to moderate atrophic change. Simone Wolf MD Renal Ultrasound 06/19/17 0000 Signed Impressions: Service Date/Time: Monday, June 19, 2017 16:47 - CONCLUSION: 1. Elevated velocities in the proximal and mid right renal artery. 2. Nonvisualization of the left mid renal artery with elevated velocity in the distal portion of the renal artery. 3. Echogenic kidneys characteristic of medical renal disease. There is no hydronephrosis. Simone Wolf MD Physical Exam CONSTITUTIONAL/GENERAL: This is an adequately nourished patient, in no apparent distress. Looks wekll Pt appears well SKIN: No jaundice, mild rash, petechial, non pruritic EYES: Pupils equal and round and reactive. Non icteric ENT: Hearing grossly normal. Nose without bleeding or purulent drainage. Throat without visible erythema, exudates, masses, or lesions. No enanthema noted RESPIRATORY/CHEST: , unlabored respirations. MUSCULOSKELETAL: Extremities without clubbing, cyanosis, or edema. NEUROLOGICAL: Awake and alert. Motor and sensory grossly within normal limits. Follows commands. Clear speech . Moves all extremities. Lymphatics: diffuse lymphadenopathry, shotty neck, axillae PSYCHIATRIC: No obvious anxiety/depression. 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
[2017-09-24 17:15] VITALS: BP 121/72; PULSE 87; RESP 16; TEMP 98.2; O2SAT 97
[2017-09-24 19:50] VITALS: PULSE 94; RESP 18; TEMP 99.1; O2SAT 98
[2017-09-25] MEDS: POTASSIUM CHLORIDE INJ 10 MEQ in SODIUM CHLOR 0.9% 1000 ML INJ 1,000 ML IV SCH ×3 (02:09→21:31)
[2017-09-25] MEDS: PIPERACIL-TAZO 3.375 GM PREMIX 50 ML IV SCH ×2 (03:02→09:11)
[2017-09-25 05:41] VITALS: BP 128/69; PULSE 80; RESP 17; TEMP 97.8; O2SAT 99
[2017-09-25] MEDS: METOPROLOL SUCCINATE 50 MG EXTENDED RELEASE TAB PO SCH (09:00)
[2017-09-25] MEDS: NIFEdipine 90 MG SUSTAINED RELEASE TAB PO SCH (09:00)
[2017-09-25] MEDS: HALOPERIDOL LACTATE 5 MG/ML AMP IM SCH ×2 (09:00→21:00)
[2017-09-25] MEDS: BENZTROPINE MESYLATE 1 MG TAB PO SCH ×2 (09:07→21:25)
[2017-09-25] MEDS: HALOPERIDOL 10 MG TAB PO SCH ×2 (09:07→21:25)
[2017-09-25] MEDS: NYSTATIN SUSP 500,000 U/5 ML CUP SWISH-SWAL SCH ×4 (09:07→21:25)
[2017-09-25] MEDS: VANCOMYCIN INJ 1,000 MG in SODIUM CHLOR 0.9% 250 ML INJ 250 ML IV SCH (11:10)
--- NOTE | 2017-09-25 13:20 | HHI.PR ---
Subjective Remarks Follow up for fever in a patient with HIV. The patient is seen ambulating the hallways. He denies any medical complaints including no fevers/chills, headache , cough, congestion, sore throat, chest pain, shortness of breath, abdominal pain, nausea/vomiting, or diarrhea. He states his rash resolved awhile ago. He states he is eating well. Vital signs reviewed and stable. Objective Vitals Vital Signs Date Time Temp Pulse Resp B/P (MAP) Pulse Ox O2 Delivery O2 Flow Rate FiO2 09/25/17 05:41 97.8 80 17 128/69 (88) 99 09/24/17 19:50 99.1 94 18 98 09/24/17 17:15 98.2 87 16 121/72 (88) 97 09/24/17 13:05 98.3 96 18 133/73 (93) 98 I/O 09/24/17 09/24/17 09/24/17 09/25/17 09/25/17 09/25/17 07:00 15:00 23:00 07:00 15:00 23:00 Intake Total 3976 ml 480 ml 1800 ml 840 ml 960 ml Balance 3976 ml 480 ml 1800 ml 840 ml 960 ml Intake Oral 1680 ml 480 ml 1800 ml 840 ml 960 ml IV Total 2296 ml # Voids 3 3 2 Result Diagram: 09/24/17 0646 09/24/17 0646 Imaging Last Impressions Chest X-Ray 09/22/17 0000 Signed Impressions: Service Date/Time: Friday, September 22, 2017 17:40 - CONCLUSION: 1. No active disease. Wesly Chapin MD Brain MRI 08/23/17 0000 Signed Impressions: Service Date/Time: August 15:16 - CONCLUSION: 1. 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 2. No findings to indicate acute cortical infarction are seen. 3. Scattered areas of increased T2 signal in the white matter most consistent with microvascular ischemic demyelinative change. 4. No abnormal enhancement identified within the brain parenchyma. Figueroa Nina MD Chest CT 08/08/17 0000 Signed Impressions: Service Date/Time: Tuesday, August 08, 2017 20:14 - CONCLUSION: 1. No acute findings. No adenopathy or effusion. Wesly Chapin MD Abdomen/Pelvis CT 08/08/17 0000 Signed Impressions: Service Date/Time: Tuesday, August 08, 2017 20:14 - CONCLUSION: 1. No acute findings. No adenopathy. Mild constipation. Wesly Chapin MD Liver Ultrasound 07/26/17 0000 Signed Impressions: Service Date/Time: July 16:09 - CONCLUSION: 1. Unremarkable abdominal ultrasound examination. Randall Patten MD Head CT 06/20/17 0000 Signed Impressions: Service Date/Time: June 03:11 - CONCLUSION: 1. No acute hemorrhage or mass effect. 2. Areas of encephalomalacia in the left temporal and parietal lobes. 3. Mild to moderate atrophic change. Simone Wolf MD Renal Ultrasound 06/19/17 0000 Signed Impressions: Service Date/Time: Monday, June 19, 2017 16:47 - CONCLUSION: 1. Elevated velocities in the proximal and mid right renal artery. 2. Nonvisualization of the left mid renal artery with elevated velocity in the distal portion of the renal artery. 3. Echogenic kidneys characteristic of medical renal disease. There is no hydronephrosis. Simone Wolf MD Objective Remarks GENERAL: Well-nourished, well-developed middle aged male patient in [facility]. SKIN: Warm and dry. No rash. HEENT: Normocephalic. Atraumatic.Pupils equal and round. Mucous membranes pink and moist. CARDIOVASCULAR: Regular rate and rhythm. No murmur appreciated. RESPIRATORY: No accessory muscle use. Clear to auscultation. Breath sounds equal bilaterally. GASTROINTESTINAL: Abdomen soft, non-tender, nondistended. Normoactive bowel sounds x4. MUSCULOSKELETAL: No obvious deformities. Extremities without clubbing, cyanosis , or edema. NEUROLOGICAL: Awake and alert. No obvious cranial nerve deficits. Motor grossly within normal limits. Moving all extremities spontaneously. Normal speech. Medications and IVs Current Medications Medications (Trade) Dose Ordered Sig/Zina Route Start Time Stop Time Status Last Admin (Ativan) 1 mg Q6H PRN PO 06/12/17 15:45 Future hold 07/25/17 20:55 (Ativan Inj) 1 mg Q6H PRN IM 06/12/17 15:45 Future hold (Tylenol) 650 mg Q4H PRN PO 06/12/17 15:45 Future hold 09/23/17 19:22 (Milk Of Magnesia Liq) 30 ml DAILY PRN PO 06/12/17 15:45 Future hold (Mag-Al Plus Susp Liq) 30 ml Q6H PRN PO 06/12/17 15:45 Future hold (Pill Splitter) 1 ea UNSCH PRN OTHER 06/12/17 16:30 (Toprol Xl) 100 mg DAILY PO 06/16/17 09:00 Future hold 07/26/17 10:47 (Procardia Xl) 90 mg DAILY PO 06/20/17 09:00 Future hold 09/24/17 09:00 (Apresoline) 25 mg Q8HR PO 06/21/17 22:00 Future Hold 09/24/17 05:50 (Cogentin) 1 mg Q12H PRN PO 07/16/17 11:45 Future hold (Cogentin Inj) 1 mg Q12H PRN IM 07/16/17 11:45 Future hold (Prinivil) 5 mg DAILY PO 07/26/17 09:00 Future Hold 09/06/17 09:34 (Haldol Inj) 5 mg BID IM 08/06/17 21:00 (Haldol) 10 mg BID PO 08/09/17 21:00 09/25/17 09:07 (Mycostatin Liq) 5 ml QID SWISH-SWAL 08/11/17 13:00 09/25/17 09:07 (Catapres) 0.1 mg Q6H PRN PO 08/21/17 19:30 09/04/17 18:04 (Cogentin) 1 mg Q12HR PO 09/04/17 21:00 09/25/17 09:07 (Oscal-D 250-125) 500 mg BID@1300,2100 PO 09/05/17 21:00 09/24/17 21:08 (Motrin) 400 mg Q6H PRN PO 09/18/17 09:00 09/18/17 16:34 (Chloraseptic [place]) 2 spray Q2H PRN OROPHARYNG 09/18/17 09:00 09/20/17 08:33 (Benadryl) 50 mg Q6H PRN PO 09/22/17 11:30 09/22/17 11:30 Potassium Chloride 10 meq/ Sodium Chloride 1,005 ml @ 100 mls/hr Q10H3M IV 09/23/17 20:00 09/25/17 12:12 A/P Problem List: (1) Fever ICD Code: R50.9 - Fever, unspecified Status: Acute (2) HIV (human immunodeficiency virus infection) ICD Code: Z21 - Asymptomatic human immunodeficiency virus [HIV] infection status Status: Chronic (3) Hypertension ICD Code: I10 - Essential (primary) hypertension Status: Chronic (4) Psychotic disorder ICD Code: F29 - Unspecified psychosis not due to a substance or known physiological condition Status: Acute Assessment and Plan 61 year old female with HIV admitted to the psych unit and transferred to med psych on 09/22 for fever and sepsis. Fever: Temp 100.7 and HR 120 on 09/22 and patient apparently lightheaded and developed a rash -Hospitalist was stat consulted for evaluation in light of patient's currently untreated HIV -Stat labs showed a new leukocytosis with WBC 14.3 and lactic acid 2.4 and broad spectrum vanc and Zosyn were started -U/A unremarkable, CXR unremarkable, Influenza negative, Blood cultures with NGTD -ID was consulted and discontinued abx for suspected viral syndrome -On 09/23, patient again developed fever 101.0 and vanco/zosyn were restarted ; however again evaluated by ID 09/24, antibiotics discontinued -Patient with positive T-cell receptor gamma gene rearrangement, concern for malignancy; Heme/Onc consulted by ID -No further leukocytosis or fevers -Await hematology evaluation HIV: chronic. Pt was on Odefsey as an outpatient and when it was continued in the hospital it was compounded by pharmacy with a different salt and the patient subsequently had an allergic reaction to it thus flagging further antiretroviral options. Prior to this hospitalization his viral load was undetectable and now it is extremely high as of July -Last CD4 count in July >700 -Apparently he wants to be back on Odefsey; will defer to ID -Repeat lymphocyte profile pending HCV: chronic -Avoid hepatotoxic agents -Follow up with GI as outpatient Bipolar disorder, schizophrenia -continue management per psych HTN: BP well controlled -Continue Procardia -Restart Toprol since some elevated pressures and tachycardic -Clonidine PRN -improved DVT prophylaxis- patient is ambulatory Problem Qualifiers (1) Hypertension: Qualified Codes: I10 - Essential (primary) hypertension (2) Psychotic disorder: Qualified Codes: F28 - Other psychotic disorder not due to a substance or known physiological condition Ivana Bazzi PA-C Sep 25, 2017 1:20 pm
[2017-09-25] MEDS: CALCIUM/VITAMIN D 250 MG/125 U TAB PO SCH ×2 (13:34→21:29)
--- NOTE | 2017-09-25 14:20 | HHI.IDPN ---
Subjective Subjective Remarks no fever zosyn, vanco stopped rash resolved denies other symptoms he feels better fine CXR, UA and blood clx are all negative He was positive for T-cell Receptor Gamma Gene Rearrangement dw Dr Vo: cw large cell lymphoma Antibiotics abx were stopped Lines PIV Past Medical History HTN Hep C HIV Bipolar disorder Schizoaffective disorder Schizophrenia Absent temporal lobe syndrome Past Surgical History Right ankle surgery secondary to bone spurs Allergies: Coded Allergies: Sulfa (Sulfonamide Antibiotics) (Unverified Allergy, Severe, Hives, ) emtricitabine (Verified Allergy, Severe, Skin Discoloration, 09/06/17) severe skin redness rilpivirine (Verified Allergy, Severe, Skin Discoloration, 09/06/17) severe skin redness tenofovir (Verified Allergy, Severe, Skin Discoloration, 09/06/17) severe skin redness Objective . Vital Signs Date Time Temp Pulse Resp B/P (MAP) Pulse Ox O2 Delivery O2 Flow Rate FiO2 09/25/17 05:41 97.8 80 17 128/69 (88) 99 09/24/17 19:50 99.1 94 18 98 09/24/17 17:15 98.2 87 16 121/72 (88) 97 09/25/17 09/25/17 09/26/17 15:00 23:00 07:00 Intake Total 960 ml Balance 960 ml Intake Oral 960 ml . Laboratory Tests Test 09/24/17 06:46 White Blood Count 7.9 TH/MM3 Red Blood Count 3.79 MIL/MM3 Hemoglobin 11.5 GM/DL Hematocrit 32.3 % Mean Corpuscular Volume 85.3 FL Mean Corpuscular Hemoglobin 30.4 PG Mean Corpuscular Hemoglobin Concent 35.7 % Red Cell Distribution Width 17.0 % Platelet Count 211 TH/MM3 Mean Platelet Volume 7.8 FL Neutrophils (%) (Auto) 28.5 % Lymphocytes (%) (Auto) 59.9 % Monocytes (%) (Auto) 8.0 % Eosinophils (%) (Auto) 3.2 % Basophils (%) (Auto) 0.4 % Neutrophils # (Auto) 2.2 TH/MM3 Lymphocytes # (Auto) 4.7 TH/MM3 Monocytes # (Auto) 0.6 TH/MM3 Eosinophils # (Auto) 0.2 TH/MM3 Basophils # (Auto) 0.0 TH/MM3 CBC Comment AUTO DIFF Differential Comment AUTO DIFF CONFIRMED Laboratory Tests Test 09/24/17 06:46 09/24/17 19:40 Blood Urea Nitrogen 8 MG/DL Creatinine 0.85 MG/DL Random Glucose 102 MG/DL Calcium Level 8.2 MG/DL Sodium Level 140 MEQ/L Potassium Level 3.7 MEQ/L Chloride Level 108 MEQ/L Carbon Dioxide Level 23.6 MEQ/L Anion Gap 8 MEQ/L Estimat Glomerular Filtration Rate 92 ML/MIN Lactic Acid Level 1.9 mmol/L Microbiology Date/Time Source Procedure Growth Status 09/22/17 17:15 Blood Peripheral Aerobic Blood Culture - Preliminary NO GROWTH IN 3 DAYS Resulted 09/22/17 17:15 Blood Peripheral Anaerobic Blood Culture - Preliminary NO GROWTH IN 3 DAYS Resulted 09/22/17 17:10 Blood Peripheral Aerobic Blood Culture - Preliminary NO GROWTH IN 3 DAYS Resulted 09/22/17 17:10 Blood Peripheral Anaerobic Blood Culture - Preliminary NO GROWTH IN 3 DAYS Resulted 09/22/17 20:35 Nasal Aspirate Influenza Types A,B Antigen (JOSHUA) - Final NEGATIVE FOR FLU A AND B ANTIGEN.... Complete Imaging Last Impressions Chest X-Ray 09/22/17 0000 Signed Impressions: Service Date/Time: Friday, September 22, 2017 17:40 - CONCLUSION: 1. No active disease. Wesly Chapin MD Brain MRI 08/23/17 0000 Signed Impressions: Service Date/Time: August 15:16 - CONCLUSION: 1. 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 2. No findings to indicate acute cortical infarction are seen. 3. Scattered areas of increased T2 signal in the white matter most consistent with microvascular ischemic demyelinative change. 4. No abnormal enhancement identified within the brain parenchyma. Figueroa Nina MD Chest CT 08/08/17 0000 Signed Impressions: Service Date/Time: Tuesday, August 08, 2017 20:14 - CONCLUSION: 1. No acute findings. No adenopathy or effusion. Wesly Chpain MD Abdomen/Pelvis CT 08/08/17 0000 Signed Impressions: Service Date/Time: Tuesday, August 08, 2017 20:14 - CONCLUSION: 1. No acute findings. No adenopathy. Mild constipation. Wesly Chapin MD Liver Ultrasound 07/26/17 0000 Signed Impressions: Service Date/Time: July 16:09 - CONCLUSION: 1. Unremarkable abdominal ultrasound examination. Randall Patten MD Head CT 06/20/17 0000 Signed Impressions: Service Date/Time: June 03:11 - CONCLUSION: 1. No acute hemorrhage or mass effect. 2. Areas of encephalomalacia in the left temporal and parietal lobes. 3. Mild to moderate atrophic change. Simone Wolf MD Renal Ultrasound 06/19/17 0000 Signed Impressions: Service Date/Time: Monday, June 19, 2017 16:47 - CONCLUSION: 1. Elevated velocities in the proximal and mid right renal artery. 2. Nonvisualization of the left mid renal artery with elevated velocity in the distal portion of the renal artery. 3. Echogenic kidneys characteristic of medical renal disease. There is no hydronephrosis. Simone Wolf MD Physical Exam CONSTITUTIONAL/GENERAL: This is an adequately nourished patient, in no apparent distress. Looks wekll Pt appears well SKIN: No jaundice, rash that was prtesent yday resolved EYES: Pupils equal and round and reactive. Non icteric ENT: Hearing grossly normal. Nose without bleeding or purulent drainage. Throat without visible erythema, exudates, masses, or lesions. No enanthema noted RESPIRATORY/CHEST: , unlabored respirations. MUSCULOSKELETAL: Extremities without clubbing, cyanosis, or edema. NEUROLOGICAL: Awake and alert. Motor and sensory grossly within normal limits. Follows commands. Clear speech . Moves all extremities. Lymphatics: diffuse lymphadenopathry, shotty neck, axillae PSYCHIATRIC: No obvious anxiety/depression. 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
--- NOTE | 2017-09-25 16:09 | HHI.PYPN ---
Subjective Remarks Reviewed electronic medical record discussed case with staff. Follow-up conducted in patient's room with patient lying in bed. He is alert and oriented to self and place. His mood is good and his affect is euthymic. Reports that he feels "much better today".'s condition remains unchanged his delusions are still present. Spoke with Dr. Mattson's office today and advised them that patient is tentatively scheduled for placement at a state facility in 2 days. Explained that his transfer would require him being medically cleared. Office staff stated they would pass the message on to the physician. Mental Status Examination Appearance: Appropriate Consciousness: Alert Orientation: Person, Place (at least) Motor Activity: Other (continues to display a resting tremor. No other motoric abnormalities noted.) Speech: Unremarkable Language: Adequate Fund of Knowledge: Adequate Attention and Concentration: Inadequate Memory: Unremarkable Mood: Appropriate, Other ("excellent") Affect: Appropriate, Euthymic Thought Process & Associations: Tangential Thought Content: Bizarre thinking, Hallucinations, Delusional Hallucination Type: Auditory Delusion Type: Bizarre, Paranoid, Other (bahai) Suicidal Ideation: No Suicidal Plan: No Suicidal Intention: No Homicidal Ideation: No Homicidal Plan: No Homicidal Intention: No Insight: Poor Judgment: Poor Mental Status Exam Remarks No changes in delusions. Results Labs Test 09/24/17 19:40 Lactic Acid Level 1.9 mmol/L Date/Time Source Procedure Growth Status 09/22/17 17:15 Blood Peripheral Aerobic Blood Culture - Preliminary NO GROWTH IN 3 DAYS Resulted 09/22/17 17:15 Blood Peripheral Anaerobic Blood Culture - Preliminary NO GROWTH IN 3 DAYS Resulted 09/22/17 20:35 Nasal Aspirate Influenza Types A,B Antigen (JOSHUA) - Final NEGATIVE FOR FLU A AND B ANTIGEN.... Complete Vitals/IOs Vital Signs Date Time Temp Pulse Resp B/P (MAP) Pulse Ox O2 Delivery O2 Flow Rate FiO2 09/25/17 05:41 97.8 80 17 128/69 (88) 99 Intake and Output 09/25/17 09/25/17 09/26/17 08:00 16:00 00:00 Intake Total 840 ml 960 ml Balance 840 ml 960 ml Assessment & Plan Problem List: (1) Psychotic disorder ICD Codes: F29 - Unspecified psychosis not due to a substance or known physiological condition Status: Acute Assessment & Plan Estimated LOS: Patient is tentatively scheduled to be transferred to a state facility on September 27 pending a discharge from medical. Justification for Cont. Inpt. Moving this patient to a lower level of care would likely result in decompensation. He lacks capacity to care for self. Problem Qualifiers (1) Psychotic disorder: Qualified Codes: F28 - Other psychotic disorder not due to a substance or known physiological condition Amanda Saunders Sep 25, 2017 16:09
[2017-09-25 18:35] VITALS: BP 137/92; PULSE 87; RESP 16; TEMP 97.5; O2SAT 98
[2017-09-25] MEDS: diphenhydrAMINE HCL 50 MG CAP PO PRN (21:25)
--- NOTE | 2017-09-26 00:03 | PD.ONC.PN ---
Subjective Subjective Remarks resting in bed says he is doing fine Patient was seen around 7:00pm on 09/25/17 Objective Data Date Time Temp Pulse Resp B/P (MAP) Pulse Ox O2 Delivery O2 Flow Rate FiO2 09/25/17 18:35 97.5 87 16 137/92 (107) 98 09/25/17 05:41 97.8 80 17 128/69 (88) 99 Result Diagram: 09/24/17 0646 09/24/17 0646 Administered Medications Medications (Trade) Dose Ordered Sig/Zina Route PRN Reason Start Time Stop Time Status Last Admin Dose Admin Lorazepam (Ativan) 1 mg Q6H PRN PO MODERATE TO SEVERE ANXIETY 06/12/17 15:45 Future hold 07/25/17 20:55 Acetaminophen (Tylenol) 650 mg Q4H PRN PO Pain 1-5 or Temp >100.4 06/12/17 15:45 Future hold 09/23/17 19:22 Metoprolol Succinate (Toprol Xl) 100 mg DAILY PO 06/16/17 09:00 Future hold 07/26/17 10:47 Nifedipine (Procardia Xl) 90 mg DAILY PO 06/20/17 09:00 Future hold 09/24/17 09:00 Hydralazine HCl (Apresoline) 25 mg Q8HR PO 06/21/17 22:00 Future Hold 09/24/17 05:50 Lisinopril (Prinivil) 5 mg DAILY PO 07/26/17 09:00 Future Hold 09/06/17 09:34 Haloperidol (Haldol) 10 mg BID PO 08/09/17 21:00 09/25/17 21:25 Nystatin (Mycostatin Liq) 5 ml QID SWISH-SWAL 08/11/17 13:00 09/25/17 21:25 Clonidine (Catapres) 0.1 mg Q6H PRN PO SBP > 160 or DBP > 90 08/21/17 19:30 09/04/17 18:04 Benztropine Mesylate (Cogentin) 1 mg Q12HR PO 09/04/17 21:00 09/25/17 21:25 Calcium/Vitamin D (Oscal-D 250-125) 500 mg BID@1300,2100 PO 09/05/17 21:00 09/25/17 21:29 Ibuprofen (Motrin) 400 mg Q6H PRN PO FEVER 09/18/17 09:00 09/18/17 16:34 Phenol (Chloraseptic [place]) 2 spray Q2H PRN OROPHARYNG SORE THROAT 09/18/17 09:00 09/20/17 08:33 Diphenhydramine HCl (Benadryl) 50 mg Q6H PRN PO ITCHING AND/OR RASH 09/22/17 11:30 09/25/17 21:25 Potassium Chloride 10 meq/ Sodium Chloride 1,005 ml @ 100 mls/hr Q10H3M IV 09/23/17 20:00 09/25/17 21:31 Objective Remarks GENERAL: nad SKIN: Warm and dry. LYMPHATIC: No adenopathy. CARDIOVASCULAR: Regular rate and rhythm without murmurs. RESPIRATORY: Breath sounds equal bilaterally. No accessory muscle use. GASTROINTESTINAL: Abdomen soft, non-tender, nondistended. EXTREMITIES: No cyanosis, or edema. Assessment/Plan Problem List: (1) Lymphocytosis ICD Codes: D72.820 - Lymphocytosis (symptomatic) Plan: --differential includes underlying reactive process from infection such as HIV and viral hepatitis from hep C vs underlying lymphoproliferative disorder such as CLL (less likely) --will obtain peripheral smear, flow cytometry, CT of chest abdomen and pelvis. (2) HIV (human immunodeficiency virus infection) ICD Codes: Z21 - Asymptomatic human immunodeficiency virus [HIV] infection status Status: Chronic (3) Viral rash ICD Codes: B09 - Unspecified viral infection characterized by skin and mucous membrane lesions Status: Resolved Assessment This is a 61-year-old male who has a history of bipolar disorder, schizophrenia and history of HIV who was seen by me a few weeks ago for evaluation of lymphocytosis. He had leukocytosis with a white blood cell count of 28.6 with increase in lymphocyte percentage of 72%. His absolute CD8 count was elevated to 17,752 and absolute lymphocyte count was 20,383. His CD4 count was 400. It was thought that the llymphocytosis was secondary to underlying HIV infection. He has not been on anti-retroviral therapy. Oligoclonal expansion of CD8 lymphocytes can be seen in patients with HIV. Peripheral review of blood smear revealed substantial lymphocytosis. Due to concern for underlying lymphoproliferative disorder, a flow cytometry on peripheral blood was ordered. This revealed approximately 21% phenotypic T granular lymphocytes. There was reverse CD4 to CD8 ratio and polyclonal, which could be seen in immunocompromised state such as HIV. Due to the fact that T granular lymphocytes were increased; a T-cell rearrangement study was ordered. A monoclonal pattern of gene rearrangement was seen on the T-cell rearrangement study. There was a presence of monoclonal lymphoid population with T-cell receptor gamma rearrangement. There is limitation of making a diagnosis of LGL leukemia based on this study. The findings of clonal PCR gene arrangement is not necessarily synonymous with presence of a T-cell neoplasm. These results are usually interpreted in the context of other clinicopathological findings. I attempted to discuss these findings with the patient, but he was somewhat dismissive. He kept on stating that he was treated with HIV and and believes that he has been cured from HIV. I also explained to the patient that we may need to obtain a bone marrow biopsy to further investigate the above-mentioned findings. He, very clearly declined a bone marrow biopsy. The patient has had a CT of the chest abdomen pelvis and there was no lymphadenopathy. His most recent labs show a white blood cell count of 7.6, hemoglobin of 11.6 and platelet count of 214. Labs from 09/23/2017 show a lymphocyte count of 4200 which is within the normal range. This patient does not have any cytopenias. He does not have any splenomegaly. He does not have any lymphadenopathy. He has poor understanding of his current medical condition due to his psychiatric disorder. He has declined a bone marrow biopsy. In this situation, I would not recommend any further intervention even if this patient has underlying LGL leukemia since not all patients require treatment initially. Generally, the treatment is reserved for symptomatic disease. In general LGL leukemia behaves in an indolent fashion. Usually the treatment is based on any symptomatology such as severe neutropenia, transfusion dependency, recurrent infections etc. I would recommend continued observation at this time. I would recommend monthly CBC. I would also recommend repeat peripheral blood flow cytometry in 4 -6 months. The option of performing a bone marrow biopsy in the future can also be considered if the patient becomes agreeable. Plan As above Dusty Mattson MD Sep 26, 2017 00:03
[2017-09-26 06:00] VITALS: BP 147/94; PULSE 79; RESP 17; TEMP 98.1; O2SAT 98
[2017-09-26] MEDS: POTASSIUM CHLORIDE INJ 10 MEQ in SODIUM CHLOR 0.9% 1000 ML INJ 1,000 ML IV SCH (07:49)
[2017-09-26] MEDS: HALOPERIDOL 10 MG TAB PO SCH ×2 (08:57→20:33)
[2017-09-26] MEDS: METOPROLOL SUCCINATE 50 MG EXTENDED RELEASE TAB PO SCH (08:57)
[2017-09-26] MEDS: BENZTROPINE MESYLATE 1 MG TAB PO SCH ×2 (08:57→20:34)
[2017-09-26] MEDS: HALOPERIDOL LACTATE 5 MG/ML AMP IM SCH ×2 (08:58→20:40)
[2017-09-26] MEDS: NIFEdipine 90 MG SUSTAINED RELEASE TAB PO SCH (08:58)
[2017-09-26] MEDS: NYSTATIN SUSP 500,000 U/5 ML CUP SWISH-SWAL SCH ×4 (08:58→20:35)
--- NOTE | 2017-09-26 09:38 | PD.TTN ---
Patient Problems 1. Discharge planning 2. Medication compliance 3. Knowledge deficit 4. Lack of coping skills Progress Toward Goals Provider Present: Dr. Master Cole, Dr. Binu Tabares Provider Input: 09/26/2017; patient has had no change wish requires pscyhic medications; however patient continues to be follow and require [facility]. 09/24/2017: patient has medical issues needing addressing and [facility] requ[facility] of patient's current medical condition 09/19/17 overall same and no changes at this time, state is accepting patient 09/12/14 and 09/17/17 overall no changes, past treatment team was held last week and today, overall remain compliant 09/05/17 - Patient remains compliant with medications, religiously preoccupied, and without behavioral outburst. 09/02/18patient overall remains delusional but med compliant , relgiously pre-occupied 08/27/17 now on 2600 encouraged to engage, he appears doing well and is pleasant and compliant but still symptomatic 08/22/17 patient remains delusional and in need for nursing home care or state hospital 08/20/17 patient has been medically cleared, on 2600 unit, would beenfit from placement at high risk for decompensation 08/17/17 still psychotic and need a safe and stable living arrangement to accomodate his medical and mental health needs 08/13 Patient is still very psychotic and in need for psychiatric and medical stablization 08/08 patient is now taking his psychotropic meds but no medical meds - he is not medically cleared and is still awaiting on medical work up results 07/31/17 patient is now refusing all meds and treatment 07/23/2017 - Dr. Tabares reports the patient remains compliant with medications and without behavoral disturbance. 07/18/2017 - Patient remains a placement issue, compliant with medications, and without behavioral disturbance. 07/02/17 Patient remains psychotic and delusional. 06/27/2017 Patient will require placement in an Assisted Living Facility. He has a histroy of TBI, and fixed delusions that are sabianist nature. 06/20/2017; patient is at the highest dosage of medication and might need to have an additional med added to level off his mood/behavior. Patient is new to unit and will be starting on a medication regiment. Will monitor progress of patient throughout the week. 06/18/2017 - Dr. Tabares reports the patient would like placement in an [facility]. 06/25 - Patient will continue to be looked for in regards to placement. Not behavioral issues on the unit. 07/04/17 Patient continues to meet criteria. Patient has court tomorrow Nurse(s) Present: RN Nurse(s) Input: 09/26/17: Patient is taking his medication; continues to be religiously focused and selective with medical treatment. 09/24/2017; Patient is being assess by medical, not very open to medical treatment 06/20/2017; Patient is taking his medication, eating meals; however patient displays manic behavior, up doing the night hours with limited sleep. 06/25 patient is noted to have no behavioral issues on the unit and has been compliant with medications. denies side effects 07/04/17 Patient's nurse Sara reports patient is religioulsy preoccupied, continues to practice ballet exercies. Medication compliant. Patient is calm and cooperative. Psychiatric Counselors Present: Jenny Schroeder, [facility], Marbella Britton, [facility], Gisselle Shin, [facility], Simin Trejo, [facility], Linda Chandler, [facility] Psych The[facility]ist Input: 09/26/2017: Patient continues to be on the State wait list with a date of 09/27/2017 09/24/2017: Patient continues to be on the State wait list with a date of 09/27/2017 09/19/17 patient is going to the [facility] this month 09/12/17 and 09/17/17 patient is still religiously occupied and certain Satan is in his right foot and smiles ,pleasant and coooperative, but appears internally hearing voices as well when speaking to him longer he appears distracted and wants a break / left alone, he states he has God talking to him so he feels safe and never alone no matter where he is and therefore is very comfortable here 09/05/17 - Patient continues to focus on sabianist preoccupations. He remains calm and pleasant. 09/02/18 patient remains on hospital list - he states he does not like groups as they trigger him to become religiously occupied- he states "God is my better manager pacu, he has healed me, I do not need any therapy or groups" 08/27/17 patient remains on hospital list, doing well on 2600 unit , but does not like groups 08/22/17 remains delusional , state referral sent, still working on placement however keeps being denied 08/20/17 patient is asking to be discharged to self, but is very delusional and religiously pre-occupied believing [facility] will assist him 08/17/17 patient remains delusional, grandiose and lacking some insight but is med compliant and agreeing to a placement, once one is found or arranged, discharge counselors Marbella and Gisselle are assisting with working with nursing homes and will try [facility] 08/13 very delusional\\ he agrees to go to outside and has been walking hallway more often, he hates the TV because it has bad intentions and therefore sits without anything by self in room often, encouraged to read but he appears to deny any activity as it triggers more delusions - he is on the State list for [facility] however counselors continue 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 07/18/2017 - Counselor reported that the patient remains delusional and religiously preoccupied. [facility] packet [facility]. 07/02/17 Patient remains medication compliant and continues to isolate. He does not saocialize with peers or staff. 06/27/2017 Counselor will continue to search for approparit placement for this patient, 06/20/2017 Counselor will begin the process for finding appropriate placement Counselor will be in contact with family memebers to recieve collateral information in regards to patient's progress. 06-18-2017 - Counselor has faxed patient's packet to [facility] for admissions review. Counselor called [facility] and there are no beds available at this time. 06/25 patient is cooperative and calm on the unit and counselor will look for placement. Patient does not socialize with peers but is pleasant. 07/04/17 Patient is medication compliant. Patient presents calm, cooperative, affect appropriate. patient's speech is clear, and organized. Patient does present religiously preoccupied. Patient isolates, on unit Group Spec/RT/OT/SCHMIDT Present: Bel Velázquez, GPS, Teresa Dexter, SCHMIDT, Kane Solis, OT, Zen Gallego, SCHMIDT Group Spec/RT/OT/SCHMIDT Input: 09/26/2017: Patient has refused to attend groups or activities 09/24/2017; Patient has refused to attend groups or activities 09/12/17 and 09/17/17 patient attends select groups and is withdrawn from others 09/05/17 - Patient is unable to tolerate groups. 09/03/17 isolates to self but comes out of for fresh air and food 08/27/17 patient comes outside but does not participate 08/22/17 does not attend gruops, continues to isolate, goes outside at times 08/20/17 attends select groups keeps to self 08/13 isolates to room and does not attend groups 08/08 patient is not attending groups and not medically cleared and on contact precautions 07/1617 does not attend 07/23/2017 - Patient refuses to attend groups. 07/18/2017 - Patient refuses to attend groups. 07/02/17 Patient isolates to his room and the only group he has attended so far is coffee shop. 06/27/2017 Patient refuses most groups, although he will occasionally attemd fresh air and snack time. 06/20/2017: Attends most groups, very cooperate, very hyperverbal Patient is new to unit and has not attend groups yet. 06-18-2017 - Patient attends select groups and his behavior is appropriate. 07/04/17 Patient attends exercise occasionally Discharge Plan SMA Patient will be discharged to [facility] when accepted. Documentation Scribe: Gisselle Shin Date Resolved: Sep 05, 2017 Gisselle Shin [facility] Sep 26, 2017 09:38
--- NOTE | 2017-09-26 10:07 | HHI.PYPN ---
Subjective Remarks Patient seen for follow, chart reviewed. Discussion nursing staff reported to have been no behavioral changes with patient patient continues to receive potassium supplement the IV. Patient was found sitting in hospital bed B, cooperative. Patient denies any physical complaints at this time continue with caodaism delusions and preoccupation. Patient states that he has spoken with the oncologist/hot box operator yesterday and was refusing to have any bone marrow biopsy stating that he did not need this. Patient refused to continue to discuss this stating that he just refuses. Review of Systems Except as stated in HPI: all other systems reviewed are Neg Mental Status Examination Appearance: Appropriate Consciousness: Alert Orientation: Person, Place (at least) Motor Activity: Other (continues to display a resting tremor. No other motoric abnormalities noted.) Speech: Unremarkable Language: Adequate Fund of Knowledge: Adequate Attention and Concentration: Inadequate Memory: Unremarkable Mood: Appropriate, Other ("excellent") Affect: Appropriate Thought Process & Associations: Other ([place]) Thought Content: Bizarre thinking, Hallucinations, Delusional Hallucination Type: Auditory Delusion Type: Bizarre, Paranoid, Other (caodaism) Suicidal Ideation: No Suicidal Plan: No Suicidal Intention: No Homicidal Ideation: No Homicidal Plan: No Homicidal Intention: No Insight: Poor Judgment: Poor Results Labs Date/Time Source Procedure Growth Status 09/22/17 17:15 Blood Peripheral Aerobic Blood Culture - Preliminary NO GROWTH IN 3 DAYS Resulted 09/22/17 17:15 Blood Peripheral Anaerobic Blood Culture - Preliminary NO GROWTH IN 3 DAYS Resulted 09/22/17 20:35 Nasal Aspirate Influenza Types A,B Antigen (JOSHUA) - Final NEGATIVE FOR FLU A AND B ANTIGEN.... Complete Vitals/IOs Vital Signs Date Time Temp Pulse Resp B/P (MAP) Pulse Ox O2 Delivery O2 Flow Rate FiO2 09/26/17 06:00 98.1 79 17 147/94 (111) 98 Intake and Output 09/26/17 09/26/17 09/27/17 08:00 16:00 00:00 Intake Total 960 ml Balance 960 ml Assessment & Plan Problem List: (1) Psychotic disorder ICD Codes: F29 - Unspecified psychosis not due to a substance or known physiological condition Status: Acute Assessment & Plan Patient this time continues to have persistent caodaism preoccupation and delusions, with poor insight and judgment into his current medical conditions, i.e. HIV and mental illness. Hematology/oncology consult input and infectious disease consult input appreciated. We will wait for medical clearance as patient scheduled to be transferred to [facility] tomorrow morning. Continue current treatment continue to monitor mood and behavior. Discharge planning in progress. Justification for Cont. Inpt. At risk of further decompensation at lower level of care Problem Qualifiers (1) Psychotic disorder: Qualified Codes: F28 - Other psychotic disorder not due to a substance or known physiological condition Jhoan Tabares MD Sep 26, 2017 10:07
[2017-09-26] MEDS: CALCIUM/VITAMIN D 250 MG/125 U TAB PO SCH ×2 (12:15→20:38)
--- NOTE | 2017-09-26 13:03 | HHI.PR ---
Subjective Remarks Follow up for fever in a patient with HIV. The patient is seen resting in bed. No further documented fevers since 09/23. He denies any medical complaints including no fevers/chills, night sweats, cough, congestion, sore throat, chest pain, shortness of breath, abdominal pain, nausea/vomiting, diarrhea, or urinary complaints. He states he is eating well. Vital signs reviewed and stable. Objective Vitals Vital Signs Date Time Temp Pulse Resp B/P (MAP) Pulse Ox O2 Delivery O2 Flow Rate FiO2 09/26/17 06:00 98.1 79 17 147/94 (111) 98 09/25/17 18:35 97.5 87 16 137/92 (107) 98 I/O 09/25/17 09/25/17 09/25/17 09/26/17 09/26/17 09/26/17 07:00 15:00 23:00 07:00 15:00 23:00 Intake Total 840 ml 960 ml 7780 ml 720 ml 480 ml Balance 840 ml 960 ml 7780 ml 720 ml 480 ml Intake Oral 840 ml 960 ml 4080 ml 720 ml 480 ml IV Total 3700 ml # Voids 2 3 3 Result Diagram: 09/24/17 0646 09/24/17 0646 Imaging Last Impressions Chest X-Ray 09/22/17 0000 Signed Impressions: Service Date/Time: Friday, September 22, 2017 17:40 - CONCLUSION: 1. No active disease. Wesly Chapin MD Brain MRI 08/23/17 0000 Signed Impressions: Service Date/Time: August 15:16 - CONCLUSION: 1. 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 2. No findings to indicate acute cortical infarction are seen. 3. Scattered areas of increased T2 signal in the white matter most consistent with microvascular ischemic demyelinative change. 4. No abnormal enhancement identified within the brain parenchyma. Figueroa Nina MD Chest CT 08/08/17 0000 Signed Impressions: Service Date/Time: Tuesday, August 08, 2017 20:14 - CONCLUSION: 1. No acute findings. No adenopathy or effusion. Wesly Chapin MD Abdomen/Pelvis CT 08/08/17 0000 Signed Impressions: Service Date/Time: Tuesday, August 08, 2017 20:14 - CONCLUSION: 1. No acute findings. No adenopathy. Mild constipation. Wesly Chapin MD Liver Ultrasound 07/26/17 0000 Signed Impressions: Service Date/Time: July 16:09 - CONCLUSION: 1. Unremarkable abdominal ultrasound examination. Randall Patten MD Head CT 06/20/17 0000 Signed Impressions: Service Date/Time: June 03:11 - CONCLUSION: 1. No acute hemorrhage or mass effect. 2. Areas of encephalomalacia in the left temporal and parietal lobes. 3. Mild to moderate atrophic change. Simone Wolf MD Renal Ultrasound 06/19/17 0000 Signed Impressions: Service Date/Time: Monday, June 19, 2017 16:47 - CONCLUSION: 1. Elevated velocities in the proximal and mid right renal artery. 2. Nonvisualization of the left mid renal artery with elevated velocity in the distal portion of the renal artery. 3. Echogenic kidneys characteristic of medical renal disease. There is no hydronephrosis. Simone Wolf MD Objective Remarks GENERAL: Well-nourished, well-developed middle aged male patient in [facility]. SKIN: Warm and dry. No rash. HEENT: Normocephalic. Atraumatic.Pupils equal and round. Mucous membranes pink and moist. CARDIOVASCULAR: Regular rate and rhythm. No murmur appreciated. RESPIRATORY: No accessory muscle use. Clear to auscultation. Breath sounds equal bilaterally. GASTROINTESTINAL: Abdomen soft, non-tender, nondistended. Normoactive bowel sounds x4. MUSCULOSKELETAL: No obvious deformities. Extremities without clubbing, cyanosis , or edema. NEUROLOGICAL: Awake and alert. No obvious cranial nerve deficits. Motor grossly within normal limits. Moving all extremities spontaneously. Normal speech. Medications and IVs Current Medications Medications (Trade) Dose Ordered Sig/Zina Route Start Time Stop Time Status Last Admin (Ativan) 1 mg Q6H PRN PO 06/12/17 15:45 Future hold 07/25/17 20:55 (Ativan Inj) 1 mg Q6H PRN IM 06/12/17 15:45 Future hold (Tylenol) 650 mg Q4H PRN PO 06/12/17 15:45 Future hold 09/23/17 19:22 (Milk Of Magnesia Liq) 30 ml DAILY PRN PO 06/12/17 15:45 Future hold (Mag-Al Plus Susp Liq) 30 ml Q6H PRN PO 06/12/17 15:45 Future hold (Pill Splitter) 1 ea UNSCH PRN OTHER 06/12/17 16:30 (Toprol Xl) 100 mg DAILY PO 06/16/17 09:00 Future hold 09/26/17 08:57 (Procardia Xl) 90 mg DAILY PO 06/20/17 09:00 Future hold 09/26/17 08:58 (Apresoline) 25 mg Q8HR PO 06/21/17 22:00 Future Hold 09/24/17 05:50 (Cogentin) 1 mg Q12H PRN PO 07/16/17 11:45 Future hold (Cogentin Inj) 1 mg Q12H PRN IM 07/16/17 11:45 Future hold (Prinivil) 5 mg DAILY PO 07/26/17 09:00 Future Hold 09/06/17 09:34 (Haldol Inj) 5 mg BID IM 08/06/17 21:00 (Haldol) 10 mg BID PO 08/09/17 21:00 09/26/17 08:57 (Mycostatin Liq) 5 ml QID SWISH-SWAL 08/11/17 13:00 09/26/17 12:15 (Catapres) 0.1 mg Q6H PRN PO 08/21/17 19:30 09/04/17 18:04 (Cogentin) 1 mg Q12HR PO 09/04/17 21:00 09/26/17 08:57 (Oscal-D 250-125) 500 mg BID@1300,2100 PO 09/05/17 21:00 09/26/17 12:15 (Motrin) 400 mg Q6H PRN PO 09/18/17 09:00 09/18/17 16:34 (Chloraseptic Soper) 2 spray Q2H PRN OROPHARYNG 09/18/17 09:00 09/20/17 08:33 (Benadryl) 50 mg Q6H PRN PO 09/22/17 11:30 09/25/17 21:25 Potassium Chloride 10 meq/ Sodium Chloride 1,005 ml @ 100 mls/hr Q10H3M IV 09/23/17 20:00 09/26/17 07:49 A/P Problem List: (1) Fever ICD Code: R50.9 - Fever, unspecified Status: Acute (2) HIV (human immunodeficiency virus infection) ICD Code: Z21 - Asymptomatic human immunodeficiency virus [HIV] infection status Status: Chronic (3) Hypertension ICD Code: I10 - Essential (primary) hypertension Status: Chronic (4) Psychotic disorder ICD Code: F29 - Unspecified psychosis not due to a substance or known physiological condition Status: Acute Assessment and Plan 61 year old female with HIV admitted to the psych unit and transferred to [facility] psych on 09/22 for fever and sepsis. Fever: Temp 100.7 and HR 120 on 09/22 and patient apparently lightheaded and developed a rash -Hospitalist was stat consulted for evaluation in light of patient's currently untreated HIV -Stat labs showed a new leukocytosis with WBC 14.3 and lactic acid 2.4 and broad spectrum vanc and Zosyn were started -U/A unremarkable, CXR unremarkable, Influenza negative, Blood cultures with NGTD -ID was consulted and discontinued abx for suspected viral syndrome -On 09/23, patient again developed fever 101.0 and vanco/zosyn were restarted ; however again evaluated by ID 09/24, antibiotics discontinued -Patient with positive T-cell receptor gamma gene rearrangement, concern for malignancy; Heme/Onc consulted by ID -Hematology consulted, appreciate recommendations, 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 -No further leukocytosis or fevers HIV: chronic. Pt was on Odefsey as an outpatient and when it was continued in the hospital it was compounded by pharmacy with a different salt and the patient subsequently had an allergic reaction to it thus flagging further antiretroviral options. Prior to this hospitalization his viral load was undetectable and now it is extremely high as of July -Last CD4 count in July >700 -Apparently he wants to be back on Odefsey; will defer to ID -Repeat lymphocyte profile pending -ID following HCV: chronic -Avoid hepatotoxic agents -Follow up with GI as outpatient Bipolar disorder, schizophrenia -continue management per psych HTN: BP well controlled -Continue Procardia -Restart Toprol since some elevated pressures and tachycardic -Clonidine PRN -improved DVT prophylaxis- patient is ambulatory Discharge Planning The patient is medically stable and ok for discharge to state facility as planned in the next 1-2 days. 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 Problem Qualifiers (1) Hypertension: Qualified Codes: I10 - Essential (primary) hypertension (2) Psychotic disorder: Qualified Codes: F28 - Other psychotic disorder not due to a substance or known physiological condition Ivana Bazzi PA-C Sep 26, 2017 13:03
[2017-09-26] MEDS ORDERED: Nystatin Liq SWISH-SWAL (16:44)
[2017-09-26] MEDS ORDERED: NIFE90TA2 PO (16:44)
[2017-09-26] MEDS ORDERED: Benztropine PO (16:44)
[2017-09-26] MEDS ORDERED: METO1TAB43 PO (16:44)
[2017-09-26] MEDS ORDERED: HALO10TA PO (16:44)
[2017-09-26 18:00] VITALS: BP 119/77; PULSE 86; RESP 17; TEMP 98.1; O2SAT 97
[2017-09-26] MEDS: diphenhydrAMINE HCL 50 MG CAP PO PRN (20:34)
[2017-09-26] MEDS: ACETAMINOPHEN 325 MG TAB PO PRN (22:25)
[2017-09-27 06:00] VITALS: BP 108/67; PULSE 87; RESP 17; TEMP 97.9; O2SAT 98
[2017-09-27] MEDS: NIFEdipine 90 MG SUSTAINED RELEASE TAB PO SCH (08:56)
[2017-09-27] MEDS: HALOPERIDOL 10 MG TAB PO SCH ×2 (08:56→20:14)
[2017-09-27] MEDS: BENZTROPINE MESYLATE 1 MG TAB PO SCH ×2 (08:56→20:14)
[2017-09-27] MEDS: NYSTATIN SUSP 500,000 U/5 ML CUP SWISH-SWAL SCH ×4 (08:56→20:14)
[2017-09-27] MEDS: METOPROLOL SUCCINATE 50 MG EXTENDED RELEASE TAB PO SCH (08:56)
[2017-09-27] MEDS: HALOPERIDOL LACTATE 5 MG/ML AMP IM SCH ×2 (08:58→19:15)
--- NOTE | 2017-09-27 10:26 | HHI.PYPN ---
Subjective Remarks Patient seen for follow up, chart reviewed. Discussion nursing staff reported the patient has been cleared medically for transfer to [facility] with IV potassium replacement completed. Patient was found sitting hospital bed calm, cooperative. Patient continues to endorse mormon delusions and preoccupations stating that his "snipper is humming" , patient also states that his brother had visited with him about 2 days ago which went "okay". Any physical complaints at this time, states that he is considering perhaps attending some groups today. Review of Systems Except as stated in HPI: all other systems reviewed are Neg Mental Status Examination Appearance: Appropriate Consciousness: Alert Orientation: Person, Place (at least) Motor Activity: Other (continues to display a resting tremor. No other motoric abnormalities noted.) Speech: Unremarkable Language: Adequate Fund of Knowledge: Adequate Attention and Concentration: Inadequate Memory: Unremarkable Mood: Appropriate, Other ("excellent") Affect: Appropriate Thought Process & Associations: Other ([place]) Thought Content: Bizarre thinking, Hallucinations, Delusional Hallucination Type: Auditory Delusion Type: Bizarre, Paranoid, Other (mormon) Suicidal Ideation: No Suicidal Plan: No Suicidal Intention: No Homicidal Ideation: No Homicidal Plan: No Homicidal Intention: No Insight: Poor Judgment: Poor Results Labs Labs reviewed Test 09/26/17 15:26 Date/Time Source Procedure Growth Status 09/22/17 17:15 Blood Peripheral Aerobic Blood Culture - Preliminary NO GROWTH IN 4 DAYS Resulted 09/22/17 17:15 Blood Peripheral Anaerobic Blood Culture - Preliminary NO GROWTH IN 4 DAYS Resulted 09/22/17 20:35 Nasal Aspirate Influenza Types A,B Antigen (JOSHUA) - Final NEGATIVE FOR FLU A AND B ANTIGEN.... Complete Vitals/IOs Vital Signs Date Time Temp Pulse Resp B/P (MAP) Pulse Ox O2 Delivery O2 Flow Rate FiO2 09/27/17 06:00 97.9 87 17 108/67 (13) 98 Assessment & Plan Problem List: (1) Psychotic disorder ICD Codes: F29 - Unspecified psychosis not due to a substance or known physiological condition Status: Acute Assessment & Plan Patient this time continues with persistent mormon delusions and preoccupations and auditory hallucinations from the same. Patient has not had any behavioral difficulties or issues since admission, has been cooperative with staff and pleasant. Quantiferon was ordered prior to his transfer to [facility] which is pending. Patient is medically cleared and [facility] Quantiferon is completed. Continue current treatment. Continue recommendations as per prior medical team. Discharge planning in progress Justification for Cont. Inpt. At risk for decompensation at lower level of care Discharge Planning Patient to be transferred to [facility] Problem Qualifiers (1) Psychotic disorder: Qualified Codes: F28 - Other psychotic disorder not due to a substance or known physiological condition Jhoan Tabares MD Sep 27, 2017 10:25
--- NOTE | 2017-09-27 12:29 | HHI.PR ---
Subjective Remarks Follow up for fever in a patient with HIV. Patient seen and examined, lying in bed comfortably. In NAD. No further fevers. Denies any recent fever, chills, headache, shortness of breath, ab pain, n/v/d or dysuria. Eating well. Ambulating well. Vital signs reviewed and stable. Objective Vitals Vital Signs Date Time Temp Pulse Resp B/P (MAP) Pulse Ox O2 Delivery O2 Flow Rate FiO2 09/27/17 06:00 97.9 87 17 108/67 (81) 98 09/26/17 18:00 98.1 86 17 119/77 (91) 97 I/O 09/26/17 09/26/17 09/26/17 09/27/17 09/27/17 09/27/17 07:00 15:00 23:00 07:00 15:00 23:00 Intake Total 720 ml 960 ml 1320 ml 96 ml Balance 720 ml 960 ml 1320 ml 96 ml Intake Oral 720 ml 960 ml 1320 ml 96 ml # Voids 3 2 1 Result Diagram: 09/24/17 0646 09/24/17 0646 Imaging Last Impressions Chest X-Ray 09/22/17 0000 Signed Impressions: Service Date/Time: Friday, September 22, 2017 17:40 - CONCLUSION: 1. No active disease. Wesly Chapin MD Brain MRI 08/23/17 0000 Signed Impressions: Service Date/Time: August 15:16 - CONCLUSION: 1. 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 2. No findings to indicate acute cortical infarction are seen. 3. Scattered areas of increased T2 signal in the white matter most consistent with microvascular ischemic demyelinative change. 4. No abnormal enhancement identified within the brain parenchyma. Figueroa Nina MD Chest CT 08/08/17 0000 Signed Impressions: Service Date/Time: Tuesday, August 08, 2017 20:14 - CONCLUSION: 1. No acute findings. No adenopathy or effusion. Wesly Chapin MD Abdomen/Pelvis CT 08/08/17 0000 Signed Impressions: Service Date/Time: Tuesday, August 08, 2017 20:14 - CONCLUSION: 1. No acute findings. No adenopathy. Mild constipation. Wesly Chapin MD Liver Ultrasound 07/26/17 0000 Signed Impressions: Service Date/Time: July 16:09 - CONCLUSION: 1. Unremarkable abdominal ultrasound examination. Randall Patten MD Head CT 06/20/17 0000 Signed Impressions: Service Date/Time: June 03:11 - CONCLUSION: 1. No acute hemorrhage or mass effect. 2. Areas of encephalomalacia in the left temporal and parietal lobes. 3. Mild to moderate atrophic change. Simone Wolf MD Renal Ultrasound 06/19/17 0000 Signed Impressions: Service Date/Time: Monday, June 19, 2017 16:47 - CONCLUSION: 1. Elevated velocities in the proximal and mid right renal artery. 2. Nonvisualization of the left mid renal artery with elevated velocity in the distal portion of the renal artery. 3. Echogenic kidneys characteristic of medical renal disease. There is no hydronephrosis. Simone Wolf MD Objective Remarks GENERAL: Well-nourished, well-developed middle aged male patient in [facility]. SKIN: Warm and dry. No rash. HEENT: Normocephalic. Atraumatic.Pupils equal and round. Mucous membranes pink and moist. CARDIOVASCULAR: Regular rate and rhythm. No murmur appreciated. RESPIRATORY: No accessory muscle use. Clear to auscultation. Breath sounds equal bilaterally. GASTROINTESTINAL: Abdomen soft, non-tender, nondistended. Normoactive bowel sounds x4. MUSCULOSKELETAL: No obvious deformities. Extremities without clubbing, cyanosis , or edema. NEUROLOGICAL: Awake and alert. No obvious cranial nerve deficits. Motor grossly within normal limits. Moving all extremities spontaneously. Normal speech. A/P Problem List: (1) Fever ICD Code: R50.9 - Fever, unspecified Status: Acute (2) HIV (human immunodeficiency virus infection) ICD Code: Z21 - Asymptomatic human immunodeficiency virus [HIV] infection status Status: Chronic (3) Hypertension ICD Code: I10 - Essential (primary) hypertension Status: Chronic (4) Psychotic disorder ICD Code: F29 - Unspecified psychosis not due to a substance or known physiological condition Status: Acute Assessment and Plan 61 year old female with HIV admitted to the psych unit and transferred to [facility] psych on 09/22 for fever and sepsis. Fever: Temp 100.7 and HR 120 on 09/22 and patient apparently lightheaded and developed a rash. Resolved. -Hospitalist was stat consulted for evaluation in light of patient's currently untreated HIV -Stat labs showed a new leukocytosis with WBC 14.3 and lactic acid 2.4 and broad spectrum vanc and Zosyn were started -U/A unremarkable, CXR unremarkable, Influenza negative, Blood cultures with NGTD -ID was consulted and discontinued abx for suspected viral syndrome -On 09/23, patient again developed fever 101.0 and Vanco/Zosyn were restarted ; however again evaluated by ID 09/24, antibiotics discontinued -Patient with positive T-cell receptor gamma gene rearrangement, concern for malignancy; Heme/Onc consulted by ID -Hematology consulted, appreciate recommendations, 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 -No further leukocytosis or fevers HIV: chronic. Pt was on Odefsey as an outpatient and when it was continued in the hospital it was compounded by pharmacy with a different salt and the patient subsequently had an allergic reaction to it thus flagging further antiretroviral options. Prior to this hospitalization his viral load was undetectable and now it is extremely high as of July -Last CD4 count in July >700 -Apparently he wants to be back on Odefsey. Apparently compliance and resistance issues were discussed with Dr. Poon via ID. ID placed on Tvicay and Descovy. -Repeat lymphocyte profile pending HCV: chronic -Avoid hepatotoxic agents -Follow up with GI as outpatient Bipolar disorder, schizophrenia -continue management per psych HTN: BP well controlled -Continue Procardia -Restart Toprol since some elevated pressures and tachycardic -Clonidine PRN -improved DVT prophylaxis- patient is ambulatory Discharge Planning The patient is medically stable and ok for discharge to state facility as planned in the next 1-2 days. 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 Problem Qualifiers (1) Hypertension: Qualified Codes: I10 - Essential (primary) hypertension (2) Psychotic disorder: Qualified Codes: F28 - Other psychotic disorder not due to a substance or known physiological condition Jennifer Zurita Sep 27, 2017 12:29
[2017-09-27] MEDS: CALCIUM/VITAMIN D 250 MG/125 U TAB PO SCH ×2 (13:58→20:14)
--- NOTE | 2017-09-27 13:58 | HHI.IDPN ---
Subjective Subjective Remarks no fever zosyn, vanco stopped no c/o seen by Hem/onc - not favoring leukemia Antibiotics abx were stopped Lines PIV Past Medical History HTN Hep C HIV Bipolar disorder Schizoaffective disorder Schizophrenia Absent temporal lobe syndrome Past Surgical History Right ankle surgery secondary to bone spurs Allergies: Coded Allergies: Sulfa (Sulfonamide Antibiotics) (Unverified Allergy, Severe, Hives, ) emtricitabine (Verified Allergy, Severe, Skin Discoloration, 09/06/17) severe skin redness rilpivirine (Verified Allergy, Severe, Skin Discoloration, 09/06/17) severe skin redness tenofovir (Verified Allergy, Severe, Skin Discoloration, 09/06/17) severe skin redness Objective . Vital Signs Date Time Temp Pulse Resp B/P (MAP) Pulse Ox O2 Delivery O2 Flow Rate FiO2 09/27/17 06:00 97.9 87 17 108/67 (81) 98 09/26/17 18:00 98.1 86 17 119/77 (91) 97 09/27/17 09/27/17 09/28/17 15:00 23:00 07:00 Intake Total 96 ml Balance 96 ml Intake Oral 96 ml Imaging Last Impressions Chest X-Ray 09/22/17 0000 Signed Impressions: Service Date/Time: Friday, September 22, 2017 17:40 - CONCLUSION: 1. No active disease. Wesly Chapin MD Brain MRI 08/23/17 0000 Signed Impressions: Service Date/Time: August 15:16 - CONCLUSION: 1. 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 2. No findings to indicate acute cortical infarction are seen. 3. Scattered areas of increased T2 signal in the white matter most consistent with microvascular ischemic demyelinative change. 4. No abnormal enhancement identified within the brain parenchyma. Figueroa Nina MD Chest CT 08/08/17 0000 Signed Impressions: Service Date/Time: Tuesday, August 08, 2017 20:14 - CONCLUSION: 1. No acute findings. No adenopathy or effusion. Wesly Chapin MD Abdomen/Pelvis CT 08/08/17 0000 Signed Impressions: Service Date/Time: Tuesday, August 08, 2017 20:14 - CONCLUSION: 1. No acute findings. No adenopathy. Mild constipation. Wesly Chapin MD Liver Ultrasound 07/26/17 0000 Signed Impressions: Service Date/Time: July 16:09 - CONCLUSION: 1. Unremarkable abdominal ultrasound examination. Randall Patten MD Head CT 06/20/17 0000 Signed Impressions: Service Date/Time: June 03:11 - CONCLUSION: 1. No acute hemorrhage or mass effect. 2. Areas of encephalomalacia in the left temporal and parietal lobes. 3. Mild to moderate atrophic change. Simone Wolf MD Renal Ultrasound 06/19/17 0000 Signed Impressions: Service Date/Time: Monday, June 19, 2017 16:47 - CONCLUSION: 1. Elevated velocities in the proximal and mid right renal artery. 2. Nonvisualization of the left mid renal artery with elevated velocity in the distal portion of the renal artery. 3. Echogenic kidneys characteristic of medical renal disease. There is no hydronephrosis. Simone Wolf MD Physical Exam CONSTITUTIONAL/GENERAL: This is an adequately nourished patient, in no apparent distress. Looks wekll Pt appears well SKIN: No jaundice, rash that was prtesent yday resolved EYES: Pupils equal and round and reactive. Non icteric ENT: Hearing grossly normal. Nose without bleeding or purulent drainage. Throat without visible erythema, exudates, masses, or lesions. No enanthema noted RESPIRATORY/CHEST: , unlabored respirations. MUSCULOSKELETAL: Extremities without clubbing, cyanosis, or edema. NEUROLOGICAL: Awake and alert. Motor and sensory grossly within normal limits. Follows commands. Clear speech . Moves all extremities. Lymphatics: diffuse lymphadenopathry, shotty: neck, axillae PSYCHIATRIC: No obvious anxiety/depression. 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
[2017-09-27] MEDS: ACETAMINOPHEN 325 MG TAB PO PRN (17:14)
[2017-09-27 17:39] VITALS: BP 108/72; PULSE 87; RESP 17; TEMP 97.4; O2SAT 98
[2017-09-28 05:28] VITALS: BP 111/60; PULSE 77; RESP 16; TEMP 97.9; O2SAT 97
[2017-09-28] MEDS: NIFEdipine 90 MG SUSTAINED RELEASE TAB PO SCH (08:17)
[2017-09-28] MEDS: HALOPERIDOL 10 MG TAB PO SCH ×2 (08:17→20:17)
[2017-09-28] MEDS: NYSTATIN SUSP 500,000 U/5 ML CUP SWISH-SWAL SCH ×6 (08:17→21:00)
[2017-09-28] MEDS: HALOPERIDOL LACTATE 5 MG/ML AMP IM SCH ×2 (08:17→19:25)
[2017-09-28] MEDS: BENZTROPINE MESYLATE 1 MG TAB PO SCH ×2 (08:17→20:17)
[2017-09-28] MEDS: METOPROLOL SUCCINATE 50 MG EXTENDED RELEASE TAB PO SCH (08:17)
[2017-09-28] MEDS ORDERED: DOLUTEGRAVIR SODIUM 50 MG TAB PO SCH (09:00)
[2017-09-28] MEDS ORDERED: DESCOVY PO SCH (09:00)
--- NOTE | 2017-09-28 10:10 | HHI.PYPN ---
Subjective Remarks Patient seen for follow up, chart reviewed. Discussion with nursing staff reported that patient has been pleasant, calm and cooperative with interview. Patient was found sitting in hospital bed B, cooperative. Noted to be good spirits. Patient states that he slept well, denies any physical complaints were continue to elaborate on his denominational delusions and auditory hallucinations from the same. He states that the alto him "good things" and never negative comments are command type. Patient states that he is looking forward to participating in some groups today. Discussion about having patient restarted on HIV meds as per recommendations from his infectious disease fashion consultant sales was reviewed which patient states "okay". He patient denies any SI, HI or visual hallucinations. Review of Systems Except as stated in HPI: all other systems reviewed are Neg Mental Status Examination Appearance: Appropriate Consciousness: Alert Orientation: Person, Place (at least) Motor Activity: Other (continues to display a resting tremor. No other motoric abnormalities noted.) Speech: Unremarkable Language: Adequate Fund of Knowledge: Adequate Attention and Concentration: Inadequate Memory: Unremarkable Mood: Appropriate, Other ("ok") Affect: Appropriate Thought Process & Associations: Other ([place]) Thought Content: Bizarre thinking, Hallucinations, Delusional Hallucination Type: Auditory Delusion Type: Bizarre, Paranoid, Other (denominational) Suicidal Ideation: No Suicidal Plan: No Suicidal Intention: No Homicidal Ideation: No Homicidal Plan: No Homicidal Intention: No Insight: Poor Judgment: Poor Results Labs Date/Time Source Procedure Growth Status 09/22/17 17:15 Blood Peripheral Aerobic Blood Culture - Final NO GROWTH IN 5 DAYS Complete 09/22/17 17:15 Blood Peripheral Anaerobic Blood Culture - Final NO GROWTH IN 5 DAYS Complete 09/22/17 20:35 Nasal Aspirate Influenza Types A,B Antigen (JOSHUA) - Final NEGATIVE FOR FLU A AND B ANTIGEN.... Complete Vitals/IOs Vital Signs Date Time Temp Pulse Resp B/P (MAP) Pulse Ox O2 Delivery O2 Flow Rate FiO2 09/28/17 05:28 97.9 77 16 111/60 (77) 97 Intake and Output 09/28/17 09/28/17 09/29/17 08:00 16:00 00:00 Intake Total 840 ml Balance 840 ml Assessment & Plan Problem List: (1) Psychotic disorder ICD Codes: F29 - Unspecified psychosis not due to a substance or known physiological condition Status: Acute Assessment & Plan Patient this time continue with persistent denominational delusions and auditory hallucinations of the same. Patient, cooperative and compliant with treatment. Patient will be restarted on HAART medications as per infectious disease fashion consultant sales, input appreciated. TB QuantiFERON result pending. Patient scheduled for transfer to [facility] once that was always in this patient is medically stable for transfer. Discharge planning in progress. Justification for Cont. Inpt. At risk for further decompensation if at lower level of care Discharge Planning [facility] Problem Qualifiers (1) Psychotic disorder: Qualified Codes: F28 - Other psychotic disorder not due to a substance or known physiological condition Jhoan Tabares MD Sep 28, 2017 10:10
[2017-09-28] MEDS: DESCOVY PO SCH (11:30)
[2017-09-28] MEDS: DOLUTEGRAVIR SODIUM 50 MG TAB PO SCH (11:47)
[2017-09-28] MEDS: CALCIUM/VITAMIN D 250 MG/125 U TAB PO SCH ×2 (13:42→20:17)
[2017-09-28 13:59] LABS: MITOGEN MINUS NIL RESULT >10.00 IU/mL; NIL RESULT 0.18 IU/mL; QUANTIFERON TB GOLD + RESULT Negative (Negative); TB ANTIGEN MINUS NIL -0.01 IU/mL
[2017-09-28 18:02] VITALS: BP 113/77; PULSE 83; RESP 16; TEMP 97.7; O2SAT 99
--- NOTE | 2017-09-28 19:11 | HHI.IDPN ---
Subjective Subjective Remarks Started on tivicay + descovy and tolerates it so far well No rash no fever no c/o Antibiotics HAART : Tivicay, Descovy Lines PIV Past Medical History HTN Hep C HIV Bipolar disorder Schizoaffective disorder Schizophrenia Absent temporal lobe syndrome Past Surgical History Right ankle surgery secondary to bone spurs Allergies: Coded Allergies: Sulfa (Sulfonamide Antibiotics) (Unverified Allergy, Severe, Hives, ) emtricitabine (Verified Allergy, Severe, Skin Discoloration, 09/06/17) severe skin redness rilpivirine (Verified Allergy, Severe, Skin Discoloration, 09/06/17) severe skin redness tenofovir (Verified Allergy, Severe, Skin Discoloration, 09/06/17) severe skin redness Objective . Vital Signs Date Time Temp Pulse Resp B/P (MAP) Pulse Ox O2 Delivery O2 Flow Rate FiO2 09/28/17 18:02 97.7 83 16 113/77 (89) 99 09/28/17 05:28 97.9 77 16 111/60 (77) 97 09/28/17 09/28/17 09/29/17 15:00 23:00 07:00 Intake Total 1080 ml 1460 ml Balance 1080 ml 1460 ml Intake Oral 1080 ml 1460 ml Imaging Last Impressions Chest X-Ray 09/22/17 0000 Signed Impressions: Service Date/Time: Friday, September 22, 2017 17:40 - CONCLUSION: 1. No active disease. Wesly Chapin MD Brain MRI 08/23/17 0000 Signed Impressions: Service Date/Time: August 15:16 - CONCLUSION: 1. 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 2. No findings to indicate acute cortical infarction are seen. 3. Scattered areas of increased T2 signal in the white matter most consistent with microvascular ischemic demyelinative change. 4. No abnormal enhancement identified within the brain parenchyma. Figueroa Nina MD Chest CT 08/08/17 0000 Signed Impressions: Service Date/Time: Tuesday, August 08, 2017 20:14 - CONCLUSION: 1. No acute findings. No adenopathy or effusion. Wesly Chapin MD Abdomen/Pelvis CT 08/08/17 0000 Signed Impressions: Service Date/Time: Tuesday, August 08, 2017 20:14 - CONCLUSION: 1. No acute findings. No adenopathy. Mild constipation. Wesly Chapin MD Liver Ultrasound 07/26/17 0000 Signed Impressions: Service Date/Time: July 16:09 - CONCLUSION: 1. Unremarkable abdominal ultrasound examination. Randall Patten MD Head CT 06/20/17 0000 Signed Impressions: Service Date/Time: June 03:11 - CONCLUSION: 1. No acute hemorrhage or mass effect. 2. Areas of encephalomalacia in the left temporal and parietal lobes. 3. Mild to moderate atrophic change. Simone Wolf MD Renal Ultrasound 06/19/17 0000 Signed Impressions: Service Date/Time: Monday, June 19, 2017 16:47 - CONCLUSION: 1. Elevated velocities in the proximal and mid right renal artery. 2. Nonvisualization of the left mid renal artery with elevated velocity in the distal portion of the renal artery. 3. Echogenic kidneys characteristic of medical renal disease. There is no hydronephrosis. Simone Wolf MD Physical Exam CONSTITUTIONAL/GENERAL: This is an adequately nourished patient, in no apparent distress. Looks wekll Pt appears well SKIN: No jaundice, no rash EYES: Pupils equal and round and reactive. Non icteric ENT: Hearing grossly normal. Nose without bleeding or purulent drainage. Throat without visible erythema, exudates, masses, or lesions. No enanthema noted RESPIRATORY/CHEST: , unlabored respirations. MUSCULOSKELETAL: Extremities without clubbing, cyanosis, or edema. NEUROLOGICAL: Awake and alert. Motor and sensory grossly within normal limits. Follows commands. Clear speech . Moves all extremities. LUE tremor Lymphatics: diffuse lymphadenopathry, shotty: neck, axillae PSYCHIATRIC: No obvious anxiety/depression. no apparent hallucinations Assessment & Plan Remarks IMPRESSION New fever, exam non-localizing: resolvbed after brief course of abx - ? 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
[2017-09-29 05:57] VITALS: BP 117/71; PULSE 74; RESP 18; TEMP 98.4; O2SAT 98
[2017-09-29] MEDS: METOPROLOL SUCCINATE 50 MG EXTENDED RELEASE TAB PO SCH (09:29)
[2017-09-29] MEDS: NIFEdipine 90 MG SUSTAINED RELEASE TAB PO SCH (09:29)
[2017-09-29] MEDS: HALOPERIDOL 10 MG TAB PO SCH ×2 (09:29→20:59)
[2017-09-29] MEDS: DOLUTEGRAVIR SODIUM 50 MG TAB PO SCH (09:29)
[2017-09-29] MEDS: DESCOVY PO SCH (09:30)
[2017-09-29] MEDS: BENZTROPINE MESYLATE 1 MG TAB PO SCH ×2 (09:30→20:59)
[2017-09-29] MEDS: HALOPERIDOL LACTATE 5 MG/ML AMP IM SCH ×2 (09:33→19:34)
--- NOTE | 2017-09-29 10:18 | HHI.PYPN ---
Subjective Chief Complaint: Psychosis Remarks Reviewed electronic medical record and discussed case with staff. Follow-up was performed in patient's room. Staff advises that patient's move date to the [facility] facility was pushed back to October 03 due to a needed TB test, which was negative. Mr. Arriaza has been restarted on his HIV medications. He denies any side effects from the medications specifically rashes and itching. He reports that he slept well and his appetite has been okay. His speech is clear and organized. His delusions remain intact. He has no complaints today and states that he requires nothing from this provider. His mood is good his affect is appropriate. He is alert and oriented to self and place. Mental Status Examination Appearance: Appropriate Consciousness: Alert Orientation: Person, Place (at least) Motor Activity: Other (continues to display a resting tremor. No other motoric abnormalities noted.) Speech: Unremarkable Language: Adequate Fund of Knowledge: Adequate Attention and Concentration: Inadequate Memory: Unremarkable Mood: Appropriate, Other ("ok") Affect: Appropriate Thought Process & Associations: Other ([place]) Thought Content: Bizarre thinking, Hallucinations, Delusional Hallucination Type: Auditory Delusion Type: Bizarre, Paranoid, Other (jew) Suicidal Ideation: No Suicidal Plan: No Suicidal Intention: No Homicidal Ideation: No Homicidal Plan: No Homicidal Intention: No Insight: Poor Judgment: Poor Results Labs Date/Time Source Procedure Growth Status 09/22/17 17:15 Blood Peripheral Aerobic Blood Culture - Final NO GROWTH IN 5 DAYS Complete 09/22/17 17:15 Blood Peripheral Anaerobic Blood Culture - Final NO GROWTH IN 5 DAYS Complete 09/22/17 20:35 Nasal Aspirate Influenza Types A,B Antigen (JOSHUA) - Final NEGATIVE FOR FLU A AND B ANTIGEN.... Complete Vitals/IOs Vital Signs Date Time Temp Pulse Resp B/P (MAP) Pulse Ox O2 Delivery O2 Flow Rate FiO2 09/29/17 05:57 98.4 74 18 117/71 (86) 98 Intake and Output 09/29/17 09/29/17 09/30/17 08:00 16:00 00:00 Intake Total 0 ml 240 ml Balance 0 ml 240 ml Assessment & Plan Problem List: (1) Psychotic disorder ICD Codes: F29 - Unspecified psychosis not due to a substance or known physiological condition Status: Acute Assessment & Plan Estimated LOS: Patient's move date to state facility has been changed October 03, 2017. Justification for Cont. Inpt. Moving patient to a lower level of care would result in decompensation. Problem Qualifiers (1) Psychotic disorder: Qualified Codes: F28 - Other psychotic disorder not due to a substance or known physiological condition Amanda Saunders Sep 29, 2017 10:18
[2017-09-29] MEDS: CALCIUM/VITAMIN D 250 MG/125 U TAB PO SCH ×2 (13:04→20:59)
[2017-09-29] MEDS: NYSTATIN SUSP 500,000 U/5 ML CUP SWISH-SWAL SCH ×3 (13:09→20:59)
[2017-09-29 16:33] VITALS: BP 112/68; PULSE 74; RESP 17; TEMP 97.8; O2SAT 97
[2017-09-30 06:34] VITALS: BP 104/66; PULSE 73; RESP 18; TEMP 97.8; O2SAT 98
[2017-09-30] MEDS: DOLUTEGRAVIR SODIUM 50 MG TAB PO SCH (10:08)
[2017-09-30] MEDS: NIFEdipine 90 MG SUSTAINED RELEASE TAB PO SCH (10:08)
[2017-09-30] MEDS: DESCOVY PO SCH (10:09)
[2017-09-30] MEDS: BENZTROPINE MESYLATE 1 MG TAB PO SCH ×2 (10:09→20:21)
[2017-09-30] MEDS: METOPROLOL SUCCINATE 50 MG EXTENDED RELEASE TAB PO SCH (10:09)
[2017-09-30] MEDS: HALOPERIDOL 10 MG TAB PO SCH ×2 (10:10→20:21)
[2017-09-30] MEDS: NYSTATIN SUSP 500,000 U/5 ML CUP SWISH-SWAL SCH ×4 (10:11→20:21)
[2017-09-30] MEDS: HALOPERIDOL LACTATE 5 MG/ML AMP IM SCH ×2 (10:12→20:21)
--- NOTE | 2017-09-30 10:41 | HHI.PYPN ---
Subjective Chief Complaint: Psychosis Remarks Reviewed electronic medical record and discussed case with staff. Follow up conducted with TONY Car present. Patient reports that he slept well and his appetite was good. His speech is clear and organized. His mood is good and his affect is euthymic. Per patient, he "has no energy today". Discussed that it could possibly be from his restarting of the HIV medication and may resolve given time. Patient ambulating w/o difficulty in halls. Continues to endorse his auditory hallucinations. Pending placement at a state facility on 10/03/17. Mental Status Examination Appearance: Appropriate Consciousness: Alert Orientation: Person, Place (at least) Motor Activity: Other (continues to display a resting tremor. No other motoric abnormalities noted.) Speech: Unremarkable Language: Adequate Fund of Knowledge: Adequate Attention and Concentration: Inadequate Memory: Unremarkable Mood: Appropriate, Other ("ok") Affect: Appropriate Thought Process & Associations: Other ([place]) Thought Content: Bizarre thinking, Hallucinations, Delusional Hallucination Type: Auditory Delusion Type: Bizarre, Paranoid, Other (alevism) Suicidal Ideation: No Suicidal Plan: No Suicidal Intention: No Homicidal Ideation: No Homicidal Plan: No Homicidal Intention: No Insight: Poor Judgment: Poor Results Labs Date/Time Source Procedure Growth Status 09/22/17 17:15 Blood Peripheral Aerobic Blood Culture - Final NO GROWTH IN 5 DAYS Complete 09/22/17 17:15 Blood Peripheral Anaerobic Blood Culture - Final NO GROWTH IN 5 DAYS Complete 09/22/17 20:35 Nasal Aspirate Influenza Types A,B Antigen (JOSHUA) - Final NEGATIVE FOR FLU A AND B ANTIGEN.... Complete Vitals/IOs Vital Signs Date Time Temp Pulse Resp B/P (MAP) Pulse Ox O2 Delivery O2 Flow Rate FiO2 09/30/17 06:34 97.8 73 18 104/66 (79) 98 Intake and Output 09/30/17 09/30/17 10/01/17 08:00 16:00 00:00 Intake Total 480 ml Balance 480 ml Assessment & Plan Problem List: (1) Psychotic disorder ICD Codes: F29 - Unspecified psychosis not due to a substance or known physiological condition Status: Acute Assessment & Plan Estimated LOS: Patient continues to be delusional and is pending placement on at a state facility. Justification for Cont. Inpt. Moving this patient to a lower level of care at this time would result in decompensation. Patient is pending a transport to the state facility on 10/03/17. Problem Qualifiers (1) Psychotic disorder: Qualified Codes: F28 - Other psychotic disorder not due to a substance or known physiological condition Amanda Saunders Sep 30, 2017 10:41
[2017-09-30] MEDS: CALCIUM/VITAMIN D 250 MG/125 U TAB PO SCH ×2 (12:50→20:22)
[2017-09-30] MEDS: ACETAMINOPHEN 325 MG TAB PO PRN (17:35)
[2017-09-30 18:00] VITALS: BP 114/67; PULSE 72; RESP 17; TEMP 97.8; O2SAT 96
[2017-09-30] MEDS: diphenhydrAMINE HCL 50 MG CAP PO PRN (20:21)
[2017-10-01 06:34] VITALS: BP 114/68; PULSE 70; RESP 16; TEMP 98; O2SAT 98
[2017-10-01] MEDS: NIFEdipine 90 MG SUSTAINED RELEASE TAB PO SCH (08:57)
[2017-10-01] MEDS: METOPROLOL SUCCINATE 50 MG EXTENDED RELEASE TAB PO SCH (08:57)
[2017-10-01] MEDS: DOLUTEGRAVIR SODIUM 50 MG TAB PO SCH (08:57)
[2017-10-01] MEDS: BENZTROPINE MESYLATE 1 MG TAB PO SCH ×2 (08:57→20:48)
[2017-10-01] MEDS: HALOPERIDOL LACTATE 5 MG/ML AMP IM SCH ×2 (08:58→20:48)
[2017-10-01] MEDS: HALOPERIDOL 10 MG TAB PO SCH ×2 (08:58→20:48)
[2017-10-01] MEDS: DESCOVY PO SCH (09:00)
[2017-10-01] MEDS: NYSTATIN SUSP 500,000 U/5 ML CUP SWISH-SWAL SCH ×4 (09:01→20:49)
--- NOTE | 2017-10-01 10:45 | HHI.PYPN ---
Subjective Chief Complaint: Psychosis Remarks Patient seen for follow, chart reviewed. Discussion nursing staff reported patient has not had any changes but compliant with treatment. Patient was found sitting in hospital bed B, cooperative. Patient mentions that he had an okay weekend, slept well, tolerating medications well as well as the start of his HAART medicines as well. Patient denies any physical complaints at this time denies feeling depressed, denies any manic symptoms, continues to have good mood as well as continued bahai delusions and preoccupations and auditory hallucinations of the same. Review of Systems Except as stated in HPI: all other systems reviewed are Neg Mental Status Examination Appearance: Appropriate Consciousness: Alert Orientation: Person, Place (at least) Motor Activity: Other (continues to display a resting tremor. No other motoric abnormalities noted.) Speech: Unremarkable Language: Adequate Fund of Knowledge: Adequate Attention and Concentration: Inadequate Memory: Unremarkable Mood: Appropriate, Other ("good") Affect: Appropriate Thought Process & Associations: Other ([place]) Thought Content: Bizarre thinking, Hallucinations, Delusional Hallucination Type: Auditory Delusion Type: Bizarre, Paranoid, Other (bahai) Suicidal Ideation: No Suicidal Plan: No Suicidal Intention: No Homicidal Ideation: No Homicidal Plan: No Homicidal Intention: No Insight: Poor Judgment: Poor Results Labs Date/Time Source Procedure Growth Status 09/22/17 17:15 Blood Peripheral Aerobic Blood Culture - Final NO GROWTH IN 5 DAYS Complete 09/22/17 17:15 Blood Peripheral Anaerobic Blood Culture - Final NO GROWTH IN 5 DAYS Complete 09/22/17 20:35 Nasal Aspirate Influenza Types A,B Antigen (JOSHUA) - Final NEGATIVE FOR FLU A AND B ANTIGEN.... Complete Vitals/IOs Vital Signs Date Time Temp Pulse Resp B/P (MAP) Pulse Ox O2 Delivery O2 Flow Rate FiO2 10/01/17 06:34 98.0 70 16 114/68 (83) 98 Intake and Output 10/01/17 10/01/17 10/02/17 08:00 16:00 00:00 Intake Total 480 ml 930 ml Balance 480 ml 930 ml Assessment & Plan Problem List: (1) Psychotic disorder ICD Codes: F29 - Unspecified psychosis not due to a substance or known physiological condition Status: Acute Assessment & Plan Patient this time tolerating treatment well car with no adverse drug reactions to re-start of HAART regimen. Patient continues with persistent bahai delusions and preoccupations and auditory hallucinations related to the same. Continue current treatment. Continue monitor mood and behavior. Discharge planning in progress. Justification for Cont. Inpt. At risk of further decompensation at lower level of care. Discharge Planning Discharge to [facility] on 10/03/17. Problem Qualifiers (1) Psychotic disorder: Qualified Codes: F28 - Other psychotic disorder not due to a substance or known physiological condition Jhoan Tabares MD Oct 01, 2017 10:45
[2017-10-01] MEDS: CALCIUM/VITAMIN D 250 MG/125 U TAB PO SCH ×2 (12:50→20:48)
[2017-10-01 18:15] VITALS: BP 108/69; PULSE 82; RESP 16; TEMP 97.7; O2SAT 97
[2017-10-02 05:11] VITALS: BP 103/64; PULSE 71; RESP 16; TEMP 98.3; O2SAT 99
[2017-10-02] MEDS: NYSTATIN SUSP 500,000 U/5 ML CUP SWISH-SWAL SCH ×4 (08:44→21:06)
[2017-10-02] MEDS: DOLUTEGRAVIR SODIUM 50 MG TAB PO SCH (08:44)
[2017-10-02] MEDS: NIFEdipine 90 MG SUSTAINED RELEASE TAB PO SCH (08:44)
[2017-10-02] MEDS: BENZTROPINE MESYLATE 1 MG TAB PO SCH ×2 (08:44→21:06)
[2017-10-02] MEDS: HALOPERIDOL 10 MG TAB PO SCH ×2 (08:44→21:06)
[2017-10-02] MEDS: METOPROLOL SUCCINATE 50 MG EXTENDED RELEASE TAB PO SCH (08:45)
[2017-10-02] MEDS: DESCOVY PO SCH (08:45)
[2017-10-02] MEDS: HALOPERIDOL LACTATE 5 MG/ML AMP IM SCH ×2 (08:45→21:00)
--- NOTE | 2017-10-02 08:49 | HHI.PYPN ---
Subjective Chief Complaint: Psychosis Remarks Patient seen for follow up; chart reviewed. Nursing staff reported that patient continues to be compliant with medications, no behavioral issues. Patient was found sitting on hospital bed, calm and cooperative. 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 Champion, [place] and the devil"). He spends some time recalling his life in [place]. Agrees to go to groups today. Review of Systems Except as stated in HPI: all other systems reviewed are Neg Mental Status Examination Appearance: Appropriate Consciousness: Alert Orientation: Person, Place (at least) Motor Activity: Other (continues to display a resting tremor. No other motoric abnormalities noted.) Speech: Unremarkable Language: Adequate Fund of Knowledge: Adequate Attention and Concentration: Inadequate Memory: Unremarkable Mood: Appropriate, Other ("good") Affect: Appropriate Thought Process & Associations: Other ([place]) Thought Content: Bizarre thinking, Hallucinations, Delusional Hallucination Type: Auditory Delusion Type: Bizarre, Paranoid, Other (sikh) Suicidal Ideation: No Suicidal Plan: No Suicidal Intention: No Homicidal Ideation: No Homicidal Plan: No Homicidal Intention: No Insight: Poor Judgment: Poor Results Labs Date/Time Source Procedure Growth Status 09/22/17 17:15 Blood Peripheral Aerobic Blood Culture - Final NO GROWTH IN 5 DAYS Complete 09/22/17 17:15 Blood Peripheral Anaerobic Blood Culture - Final NO GROWTH IN 5 DAYS Complete 09/22/17 20:35 Nasal Aspirate Influenza Types A,B Antigen (JOSHUA) - Final NEGATIVE FOR FLU A AND B ANTIGEN.... Complete Vitals/IOs Vital Signs Date Time Temp Pulse Resp B/P (MAP) Pulse Ox O2 Delivery O2 Flow Rate FiO2 10/02/17 05:11 98.3 71 16 103/64 (77) 99 Intake and Output 10/02/17 10/02/17 10/03/17 08:00 16:00 00:00 Intake Total 240 ml Balance 240 ml Assessment & Plan Problem List: (1) Psychotic disorder ICD Codes: F29 - Unspecified psychosis not due to a substance or known physiological condition Status: Acute Assessment & Plan Patient continues with sikh delusions and preoccupation and AH from the same. Continue current treatment and monitor mood and behavior. Discharge planning in progress. Justification for Cont. Inpt. At risk for further decompensation at lower level of care. Discharge Planning [facility]. Problem Qualifiers (1) Psychotic disorder: Qualified Codes: F28 - Other psychotic disorder not due to a substance or known physiological condition Jhoan Tabares MD Oct 02, 2017 08:49
[2017-10-02] MEDS: CALCIUM/VITAMIN D 250 MG/125 U TAB PO SCH ×2 (12:54→21:00)
[2017-10-02 17:38] VITALS: BP 102/59; PULSE 75; RESP 16; TEMP 98.3; O2SAT 98
[2017-10-03 06:13] VITALS: BP 108/72; PULSE 73; RESP 17; TEMP 97.9; O2SAT 98
--- NOTE | 2017-10-03 08:00 | HHI.PYPN ---
Subjective Chief Complaint: Psychosis Remarks Late entry from September 24, 2018: Electronic medical record reviewed and discussed case with staff. Follow-up was performed in patient's room. Patient' s mood is good and his affect is euthymic. His auditory hallucinations and delusions remained fixed. Mental Status Examination Appearance: Appropriate Consciousness: Alert Orientation: Person, Place (at least) Motor Activity: Other (continues to display a resting tremor. No other motoric abnormalities noted.) Speech: Unremarkable Language: Adequate Fund of Knowledge: Adequate Attention and Concentration: Inadequate Memory: Unremarkable Mood: Appropriate, Other ("good") Affect: Appropriate Thought Process & Associations: Other ([place]) Thought Content: Bizarre thinking, Hallucinations, Delusional Hallucination Type: Auditory Delusion Type: Bizarre, Paranoid, Other (tenriism) Suicidal Ideation: No Suicidal Plan: No Suicidal Intention: No Homicidal Ideation: No Homicidal Plan: No Homicidal Intention: No Insight: Poor Judgment: Poor Results Labs Date/Time Source Procedure Growth Status 09/22/17 17:15 Blood Peripheral Aerobic Blood Culture - Final NO GROWTH IN 5 DAYS Complete 09/22/17 17:15 Blood Peripheral Anaerobic Blood Culture - Final NO GROWTH IN 5 DAYS Complete 09/22/17 20:35 Nasal Aspirate Influenza Types A,B Antigen (JOSHUA) - Final NEGATIVE FOR FLU A AND B ANTIGEN.... Complete Vitals/IOs Vital Signs Date Time Temp Pulse Resp B/P (MAP) Pulse Ox O2 Delivery O2 Flow Rate FiO2 10/03/17 06:13 97.9 73 17 108/72 (84) 98 Intake and Output 10/03/17 10/03/17 10/04/17 08:00 16:00 00:00 Intake Total 240 ml Balance 240 ml Assessment & Plan Problem List: (1) Psychotic disorder ICD Codes: F29 - Unspecified psychosis not due to a substance or known physiological condition Status: Acute Assessment & Plan Estimated LOS: Patient is to be started back on his HIV medications. He is awaiting placement at the state facility. Justification for Cont. Inpt. Moving this patient to a lower level of care would result in decompensation. He waits placement at a state facility to allow for safe discharge. Problem Qualifiers (1) Psychotic disorder: Qualified Codes: F28 - Other psychotic disorder not due to a substance or known physiological condition Amanda Saunders Oct 03, 2017 08:00
--- NOTE | 2017-10-03 10:12 | HHI.DS ---
Psychiatry Discharge Summary Inpatient Psychiatric care?: Yes Advance Directive: No Reason Not Provided: Due to Patient Condition Health Care Proxy: No Admission Admission Date Jun 12, 2017 at 15:46 Admission Diagnosis: (1) Psychotic disorder ICD Code: F29 - Unspecified psychosis not due to a substance or known physiological condition Brief History 61-year-old male Raffaele acted by his primary care physician yesterday with reports of combative/violent behavior at home with his caregiver. Caregiver is his brother, Sajan. Sajan is unable to care for the patient and the patient has reportedly been staying in bathrooms and homeless, not eating and losing weight. Patient is apparently HIV positive and has "absent temporal lobe syndrome". He is grossly psychotic and unable to provide a cogent history. There are his story diagnoses of bipolar disorder and schizophrenia as well. According to the patient's CT scan, his temporal lobe is gone and this makes his personality and behavior difficult to control. The patient tells his caregiver and this physician that his primary care physician, Dr. Poon is attempting to get him sicker or keep him sick to make money off him. The patient has not been eating lunch or dinner and does not stay in the home. It has been 8 days since the patient left the home and the patient claims his brother kicked him out. The patient has not been taking his medications for HIV. Upon interview, the patient immediately makes nonsensical and psychotic remarks such as "I was born in [facility] and a pink missed". He feels this physician's sole is made of chocolate. He is unable to provide cogent information. 06/13/17 - Second Opinion Patient seen for second opinion and follow-up, chart reviewed. Patient is a 61- year-old man, single, domiciled was brother (who is his take up operator), with a past psychiatric history he The discussion she staff reported patient had been calm and cooperative. As per [place] act reported patient with absent temporal lobe syndrome , bipolar disorder, schizophrenia, with weight loss and poor hygiene, sleeping in the park and restrooms as well as being combative with caregivers. Patient initially evaluated by psychiatry and stated that he was staying bathrooms, being homeless, not eating and losing weight, noncompliant with treatment and stating that his primary care doctor, Dr. Poon , is attempting to get him a cigarette to make money off him. Patient found lying in hospital bed, noted to be initially hypervigilant was able to engage in interview today. He states that her he had been feeling "pretty good", reports that he was previously with his brother but that his brother had kicked him out. Patient denies having outpatient psychiatry. Physician but followed mainly by his primary care doctor Dr. Poon. He reports that he has had 1 previous psychiatric hospitalization 18 years ago in [place] but denies any previous suicide attempt or self-injurious behavior. He states that his best friend is Logan and that his family thinks he sick because of his belief. 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 When asked about what brought to the hospital he states that he recently saw his primary care doctor has told him that he "lost part of my brain" and was sent here by his PCP is "half of my brain is missing". Patient noted to be tangential during interview. He continues report that he had been sleeping in the showers in the [place] for the past 4 weeks after he had been "kicked out" by his brother and that his brother had been saying lies about him. He denies any auditory hallucinations but did state seeing Logan is for second. He continues to report that his brother and his family is after him because he loves Logan. Tobacco Use In Past 30 Days: No Tobacco Past 30 Days Alcohol Use: Never Results Blood Pressure 108 / 72 Vital Signs Date Time Temp Pulse Resp B/P (MAP) Pulse Ox O2 Delivery O2 Flow Rate FiO2 10/03/17 06:13 97.9 73 17 108/72 (84) 98 Laboratory Results Test 06/11/17 16:32 06/13/17 06:55 Valproic Acid (Depakene) Level 5 MCG/ML (50-100) Cholesterol Level 84 MG/DL (120-200) HDL Cholesterol 37.5 MG/DL (40.0-60.0) Hemoglobin A1c 5.5 % (4.3-6.0) LDL Cholesterol 32 MG/DL (0-99) Triglycerides Level 72 MG/DL (42-150) Imaging Last Impressions Chest X-Ray 09/22/17 0000 Signed Impressions: Service Date/Time: Friday, September 22, 2017 17:40 - CONCLUSION: 1. No active disease. Wesly Chapin MD Brain MRI 08/23/17 0000 Signed Impressions: Service Date/Time: August 15:16 - CONCLUSION: 1. 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 2. No findings to indicate acute cortical infarction are seen. 3. Scattered areas of increased T2 signal in the white matter most consistent with microvascular ischemic demyelinative change. 4. No abnormal enhancement identified within the brain parenchyma. Figueroa Nina MD Chest CT 08/08/17 0000 Signed Impressions: Service Date/Time: Tuesday, August 08, 2017 20:14 - CONCLUSION: 1. No acute findings. No adenopathy or effusion. Wesly Chapin MD Abdomen/Pelvis CT 08/08/17 0000 Signed Impressions: Service Date/Time: Tuesday, August 08, 2017 20:14 - CONCLUSION: 1. No acute findings. No adenopathy. Mild constipation. Wesly Chapin MD Liver Ultrasound 07/26/17 0000 Signed Impressions: Service Date/Time: July 16:09 - CONCLUSION: 1. Unremarkable abdominal ultrasound examination. Randall Patten MD Head CT 06/20/17 0000 Signed Impressions: Service Date/Time: June 03:11 - CONCLUSION: 1. No acute hemorrhage or mass effect. 2. Areas of encephalomalacia in the left temporal and parietal lobes. 3. Mild to moderate atrophic change. Simone Wolf MD Renal Ultrasound 06/19/17 0000 Signed Impressions: Service Date/Time: Monday, June 19, 2017 16:47 - CONCLUSION: 1. Elevated velocities in the proximal and mid right renal artery. 2. Nonvisualization of the left mid renal artery with elevated velocity in the distal portion of the renal artery. 3. Echogenic kidneys characteristic of medical renal disease. There is no hydronephrosis. Simone Wolf MD Medications Approp Antipsych med options 1 - Minimum of three failed multiple trials of monotherapy. 2 - Documented plan to taper to monotherapy due to previous use of multiple meds OR cross-taper in progress at D/C. 3 - Documentation of augmentation of Clozapine. 4 - Justification other than those listed in allowable values 1-3, document here : Discharge Pt Condition on Discharge: Stable Discharge Disposition: Trnsfr to Other Facility Discharge Instructions Diet Instructions: Heart Healthy Diet Activities you can perform: Regular-No Restrictions Mental Status Examination Appearance: Appropriate Consciousness: Alert Orientation: Person, Place (at least) Motor Activity: Other (continues to display a resting tremor. No other motoric abnormalities noted.) Speech: Unremarkable Language: Adequate Fund of Knowledge: Adequate Attention and Concentration: Inadequate Memory: Unremarkable Mood: Appropriate, Other ("good") Affect: Appropriate Thought Process & Associations: Other ([place]) Thought Content: Bizarre thinking, Hallucinations, Delusional Hallucination Type: Auditory Delusion Type: Bizarre, Paranoid, Other (taoism) Suicidal Ideation: No Suicidal Plan: No Suicidal Intention: No Homicidal Ideation: No Homicidal Plan: No Homicidal Intention: No Insight: Poor Judgment: Poor Discharge/Advance Care Plan Health Problems: (1) Psychotic disorder Goals to promote your health * To prevent worsening of your condition and complications * To maintain your health at the optimal level Directions to meet your goals Take your medications as prescribed Follow your dietary instruction Follow activity as directed Keep your appointments as scheduled Take your immunizations and boosters as scheduled If your symptoms worsen call your PCP, if no PCP go to Urgent Care Center or Emergency Room For 05/02 questions related to your inpatient stay or results of tests pending at discharge, please contact Dr. Jhoan Tabares at Smoking is Dangerous to Your Health. Avoid second hand smoking Problem Qualifiers (1) Psychotic disorder: Qualified Codes: F28 - Other psychotic disorder not due to a substance or known physiological condition Jhoan Tabares MD Oct 03, 2017 10:12
== END 2017-10-03 08:30 | DRG 976 ==
LOC: NEDAMB 16:15 → NEDA 06-12 15:46 → H4EA 06-12 20:05 → H260 06-21 11:30 → H4EA 07-23 20:49 → H260 08-17 15:15 → H4EA 09-22 18:31
PROVIDERS: ADMIT Student in an Organized Health Care Education/Training Program; ATTEND Student in an Organized Health Care Education/Training Program
DX: F29 Unspecified psychosis not due to a substance or known physiological condition (principal); B20 Human immunodeficiency virus [HIV] disease; B37.0 Candidal stomatitis; Z91.14 Patient's other noncompliance with medication regimen; I12.9 Hypertensive chronic kidney disease with stage 1 through stage 4 chronic kidney disease, or unspecified chronic kidney disease; N18.9 Chronic kidney disease, unspecified; B19.20 Unspecified viral hepatitis C without hepatic coma; R50.9 Fever, unspecified; L27.1 Localized skin eruption due to drugs and medicaments taken internally; E87.6 Hypokalemia; T37.5X5A Adverse effect of antiviral drugs, initial encounter; D72.820 Lymphocytosis (symptomatic); Z91.19 Patient's noncompliance with other medical treatment and regimen; Z88.2 Allergy status to sulfonamides; Z88.8 Allergy status to other drugs, medicaments and biological substances
CPT/HCPCS: 70450; 70553; 71010; 71045; 71046; 71260; 74177; 76705; 80048; 80053; 80061; 80074; 80164; 80202; 80307; 81001; 82088; 82247; 82306; 82384; 82565; 82570; 82607; 83036; 83605; 83735; 83835; 84100; 84156; 84244; 84443; 84585; 85007; 85025; 85027; 85060; 85610; 85730; 86355; 86357; 86359; 86360; 86480; 86592; 86664; 86665; 86747; 87040; 87186; 87205; 87497; 87536; 87804; 87899; 87901; 93005; 93975; 99285; A9579; J1200; J1630; J2543; J3370; J3480; J7030; J7050; Q0163; Q9967